=== PATIENT | male | born 1955 | race Caucasian/White ===

== ENCOUNTER 2018-11-04 14:33 | Inpatient (IN) ==
[2018-11-04 15:46] LABS: Basophils # (auto) 0.02 K/uL (0-0.2); Basophils % (auto) 0.3 %; Eosinophils # (auto) 0.03 K/uL (0-0.5); Eosinophils % (auto) 0.5 %; Hematocrit (blood only) 40.6 % (42-52); Immature Granulocytes # (auto) 0.01 K/uL (0.00-0.02); Immature Granulocytes % (auto) 0.2 %; Lymphocytes # (auto) 0.85 K/uL (1.2-3.4); Lymphocytes % (auto) 13.9 %; Mean Corpuscular Hgb Conc 34.5 g/dL (32-36); Mean Corpuscular Volume 89.2 fL (80-100); Mean Platelet Volume 9.5 fL (7.4-10.4); Monocytes # (auto) 0.43 K/uL (0.11-0.59); Neutrophils # (auto) 4.79 K/uL (1.4-6.5); Neutrophils % (auto) 78.1 %; Platelet Count 232 K/uL (130-400); RDW Coefficient of Variation 14.2 % (11.5-14.5); RDW Standard Deviation 46.2 fL (36.4-46.3); Red Blood Count 4.55 M/uL (4.7-6.1); White Blood Count 6.13 K/uL (4.8-10.8)
[2018-11-04 16:03] LABS: BUN Creatinine Ratio 14.9 (10-20); Calcium 9.2 mg/dl (8.5-10.1); Creatinine Clr Calc Pharmacy 68.9 ml/min; Est GFR (Non-African American) 91.4; Potassium 4.2 mmol/L (3.5-5.1)
[2018-11-04 16:06] LABS: Albumin Globulin Ratio 1.1 (0.9-2); Bilirubin,Total 0.5 mg/dl (0.2-1); Globulin 3.5 gm/dl (2.5-4.0); Total Protein 7.5 gm/dl (6.4-8.2)
[2018-11-04 16:19] LABS: Appearance Urine Clear (Clear); Bilirubin Urine Negative (Negative); Blood Urine Negative (Negative); Color Urine Yellow; Glucose Urine UA Negative (Negative); Ketones Urine Negative (Negative); Leukocyte Esterase Urine Negative (Negative); Nitrite Urine Negative (Negative); Protein Urine Negative (Negative); Specific Gravity Urine 1.023 (1.000-1.030); Urobilinogen Urine Negative (Negative)
--- NOTE | 2018-11-04 16:38 | XRay Report ---
XR chest 2V routine CLINICAL HISTORY: fever eval for pna dyspnea COMPARISON STUDY: 10/19/2018 FINDINGS: Chronic elevation left hemidiaphragm. Lungs are considered clear. No evidence for focal inf iltrate. Minimal atelectasis left base improved from the prior study. IMPRESSION: 1. Minimal atelectasis left base. Lungs otherwise are clear. The above report was generated using voice recognition software. It may contain grammatical, syntax or spelling errors. Electronically signed by: Memo Castillo M.D. 11/04/2018 4:36 PM
[2018-11-04 16:45] LABS: Lyme Ab IgG w/WB Rflx Negative (Negative); Lyme Ab IgM w/WB Rflx Negative (Negative)
[2018-11-04] MEDS ORDERED: PIPERACILL/TAZOBAC CONSULT ACTIVE PRN (16:56)
[2018-11-04] MEDS ORDERED: PIPERACILLIN/TAZOBACTAM 4.5 GM/120 ML BAG IV ONE (16:56)
[2018-11-04] MEDS ORDERED: DAPTOmycin 275 MG in SYRINGE 0 ML IV ONE (16:56)
--- NOTE | 2018-11-04 18:15 | History & Physical Report ---
Date of Service November 04, 2018 Assessment & Plan (1) Bilateral lower leg cellulitis: 62 y/o M Hx HLD, spinal stenosis with narcotic dependence, LE edema and recurrent cellulitis. Recently developed BL cellulitis. He was evaluated in the ER and DCd after receiving Dalvance. He initially improved on f/u, however, his cellulitis has worsened over the past few days and he now has fevers as well. 1) Cellulitis - BL LEs. The pt is placed on Vanc and Ceftriaxone. The affected area has been delineated. We will consult ID 2) HLD - cont statin 3) Spinal stenosis - can f/u with his pain specialist to continue his scheduled methadone. 4) Depression/anxiety - cont Buspar 5) LE edema - cont Lasix - elevate LEs - no edema presently Full code - Heparin prophylaxis Total time for this admit including review of labs, meds, recent imaging, records - discussion with pt and ER attending - 33 min History of Present Illness Primary Care Provider: Hernando Morelos MD 62 y/o M Hx HLD, spinal stenosis with narcotic dependence, LE edema and recurrent cellulitis. Recently developed BL cellulitis. He was evaluated in the ER and DCd after receiving Dalvance. He initially improved on f/u, however, his cellulitis has worsened over the past few days and he now has fevers as well. PMH: 1) Cervical and lumbar stenosis - states he is trying to schedule surgery and having some insurance issues 2) HLD 3) Depression/anxiety 4) Chronic LE edema with cellulitis - the pt states he has had cellulitis on/off for 3 years. 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 - does not drink alcohol Allergies Allergy/AdvReac Type Severity Reaction Status Date / Time erythromycin base Allergy Intermediate Rash Verified 11/04/18 15:53 Home Medications Home Medications Medication Instructions Recorded Confirmed Type alprazolam 0.5 mg PO TID 10/19/18 11/04/18 History atorvastatin 10 mg PO QAM 10/19/18 11/04/18 History buspirone 15 mg PO TID PRN 10/19/18 11/04/18 History furosemide 20 mg PO QAM 10/19/18 11/04/18 History methadone 10 mg PO QID 10/19/18 11/04/18 History methylphenidate HCl 10 mg PO .QAFTERNOON 10/19/18 11/04/18 History methylphenidate HCl 20 mg PO QAM 10/19/18 11/04/18 History oxycodone 10 mg PO TID 10/19/18 11/04/18 History pantoprazole 40 mg PO QAM 10/19/18 11/04/18 History Past Med/Surg History Medical History No significant past medical history Family History Other No significant family history Social History Preferred Language: Fijian Feels Safe at Home: Yes Smoking Status: Never smoker Review of Systems Review of Systems: Gen: + fevers and fatigue ENT: Denies congestion, throat pain, hearing loss Eyes: Denies acute visual changes CV: Denies CP, palpitations Pulmonary: Denies SOB, cough, wheezing GI: Denies N/V, diarrhea, constipation Neuro: Denies acute or unilateral weakness, acute gait impairment, headache or acute visual changes Musculoskeletal: Pain an inflammation of the LEs Endocrine: Denies polydipsia, polyuria Skin: Chronic LE cellulitis - worsening Physical Exam Physical Exam: General: AAO x 3, no distress ENT: No erythema or exudates, no thrush Eyes: PAL, EOMI Head and neck: Normocephalic, atraumatic, No JVD, neck is supple. Chest/heart: Nontender, S1,2, RRR, no murmurs, no gallops Lungs: CTAB, no wheezing or crackles Abdomen: Nontender, nondistended, BS+ Neuro: AAO x 3, speech is clear, no unilateral weakness or loss of sensation, coordination intact Musculoskeletal: No joint inflammation, muscle tenderness, FROM Skin: No acute rashes or ulcers Extremities: He has no edema at present - there is cellulitis to the mid shins BL Results & Data Vital Signs (Past 12 Hours) Vital Signs Temp Pulse Resp BP Pulse Ox 11/04/18 17:00 70 14 133/82 99 11/04/18 16:01 75 26 H 139/103 H 95 11/04/18 15:56 71 17 115/55 L 96 11/04/18 14:44 100.0 F H 88 18 154/91 H 99
[2018-11-04] MEDS ORDERED: ACETAMINOPHEN 325 MG TAB PO PRN (19:40)
[2018-11-04] MEDS ORDERED: VANCOMYCIN CONSULT ACTIVE PRN (19:40)
[2018-11-04] MEDS ORDERED: ALUMINUM/MAGNESIUM SUSP 30 ML UDC PO PRN (19:40)
[2018-11-04] MEDS ORDERED: BusPIRone 15 MG TAB PO PRN (19:40)
[2018-11-04] MEDS ORDERED: ONDANSETRON INJ 2 MG/ML 2 ML VIAL IV PRN (19:40)
[2018-11-04] MEDS ORDERED: VANCOMYCIN HCL 1,000 MG in SODIUM CHLORIDE 0.9% 250 ML IV SCH (19:40)
[2018-11-04] MEDS ORDERED: MAGNESIUM HYDROXIDE SUSP 30 ML UDC PO PRN (19:40)
[2018-11-04] MEDS ORDERED: D5W AND LACTATED RINGERS 1,000 ML IV SCH (20:00)
[2018-11-04] MEDS ORDERED: SENNA 8.6 MG TAB PO PRN (20:24)
--- NOTE | 2018-11-04 20:34 | Emergency Department Note ---
Entered by Rosalba Medina acting as a scribe for History of Present Illness General Chief complaint: Skin Problem Stated complaint: CELLULITIS FOLLOW UP Source: patient History of Present Illness Onset (ago): week(s) (several ) Location: lower extremity, left and right Pain Consistency: + other (worsening) Maximum Pain Intensity: 7 Quality: + other (infection) Exacerbated By: + movement Associated symptoms: + fever/chills, + nausea/vomiting (positive nausea, negative vomiting ) and + other (positive increased redness; positive increased leg pain ); no chest pain and no headaches The patient is a 62 year old male who presents to the Emergency Room with complaints of worsening bilateral leg infection that began several weeks prior to arrival. The patient states that he has had a fever and nausea during this time. His highest temperature was 101 at home. The patient states that he has had increased redness and pain. The patient states that his pain is exacerbated with walking. He denies chest pain and vomiting. The patient states that he had an ultrasound last week that showed that his arteries were normal. The patient states that he got a tick bite on his left shoulder blade recently. He states he removed the tick with a yakov. He denies headache. The patient states that he was treated for this infection less than one month ago with Dalvance, and states that several days later, upon reevaluation, his symptoms were improving. Home Medications Home Medications Medication Instructions Recorded Confirmed Type alprazolam 0.5 mg PO TID 10/19/18 11/04/18 History atorvastatin 10 mg PO QAM 10/19/18 11/04/18 History buspirone 15 mg PO TID PRN 10/19/18 11/04/18 History furosemide 20 mg PO QAM 10/19/18 11/04/18 History methadone 10 mg PO QID 10/19/18 11/04/18 History methylphenidate HCl 10 mg PO .QAFTERNOON 10/19/18 11/04/18 History methylphenidate HCl 20 mg PO QAM 10/19/18 11/04/18 History oxycodone 10 mg PO TID 10/19/18 11/04/18 History pantoprazole 40 mg PO QAM 10/19/18 11/04/18 History Allergies Allergy/AdvReac Type Severity Reaction Status Date / Time erythromycin base Allergy Intermediate Rash Verified 11/04/18 15:53 Past Med/Surg History Medical History No significant past medical history Family History Other No significant family history Social History Preferred Language: Slovenian Feels Safe at Home: Yes Smoking Status: Never smoker Review of Systems See HPI for pertinent positives & negatives. and A total of 10 systems reviewed and were otherwise negative Physical Exam Vital Signs Vital Signs - 24 hr 11/04/18 14:44 11/04/18 15:56 11/04/18 16:01 Temperature 37.8 C H Temperature Source Oral Sepsis Recent Fever Within 48 Hours No Sepsis New/Unexplained Change in Mental Status No Sepsis Action Taken by Nursing No Action Required Pulse Rate 88 71 75 Pulse Rate from SpO2 Sensor 71 74 Respiratory Rate 18 17 26 H Respiratory Effort / Characteristics Non-Labored Respiratory Depth Normal Respiratory Pattern Regular Blood Pressure 154/91 H 115/55 L 139/103 H Blood Pressure Mean 112 75 115 Blood Pressure Position Sitting Pulse Oximetry 99 96 95 Oxygen Delivery Method Room Air Room Air Room Air 11/04/18 17:00 11/04/18 17:30 11/04/18 18:00 Temperature Temperature Source Sepsis Recent Fever Within 48 Hours Sepsis New/Unexplained Change in Mental Status Sepsis Action Taken by Nursing Pulse Rate 70 60 54 L Pulse Rate from SpO2 Sensor 71 61 53 L Respiratory Rate 14 23 15 Respiratory Effort / Characteristics Respiratory Depth Respiratory Pattern Blood Pressure 133/82 111/75 106/67 Blood Pressure Mean 99 87 80 Blood Pressure Position Pulse Oximetry 99 97 96 Oxygen Delivery Method Room Air Room Air Room Air 11/04/18 18:30 11/04/18 19:00 11/04/18 19:14 Temperature Temperature Source Sepsis Recent Fever Within 48 Hours Sepsis New/Unexplained Change in Mental Status Sepsis Action Taken by Nursing Pulse Rate 55 L 56 L 56 L Pulse Rate from SpO2 Sensor 55 L 55 L Respiratory Rate 16 20 20 Respiratory Effort / Characteristics Respiratory Depth Respiratory Pattern Blood Pressure 102/75 123/75 123/75 Blood Pressure Mean 84 91 Blood Pressure Position Pulse Oximetry 97 98 98 Oxygen Delivery Method Room Air Room Air Room Air Constitutional: Vital signs reviewed. Eyes: Pupils are equal round reactive to light. Conjunctiva are noninjected. ENT: Pharynx is clear without erythema or exudate. Mucous membranes are moist. Neck supple without meningeal signs. Respiratory: Clear to auscultation bilaterally. Breath sounds are equal bilaterally. Cardiovascular: Regular rate and rhythm. No rubs or gallops. GI: Soft, nondistended and nontender. Bowel sounds are present. Musculoskeletal: Violaceous discoloration from the upper calf to the toes with tenderness to the dorsum of his feet and toes. Delayed capillary refill bilaterally. No increased warmth. The feet are cool to touch. Dorsalis pedis pulse is 2+ on the right and 1+ on the left. Posterior tibialis pulse is 1+ on the right and very faint on the left. Integumentary: No cyanosis. Excoriated lesion in the left upper back without rash or erythema migrans. No tick parts visible. Neurological: The patient is awake and alert. No focal deficits. Psychiatric: Normal affect. Course 1509: The patient was evaluated in room B3B, and a complete history and physical examination were performed. 1653: I updated the patient on the test results and the treatment plan. 1655: [facility] for further evaluation. Consultations Consultation #1: I [facility] patient for further evaluation. Time: 16:55 Administered Medications Discontinued Medications Piperacillin Sod/Tazobactam Sod (Zosyn) 4.5 gm in 120 mls @ 240 mls/hr IV NOW ONE Stop: 11/04/18 17:25 Last Infusion: 11/04/18 18:13 Dose: 0 mls/hr Documented by: [id number] Admin: 11/04/18 17:30 Dose: 240 mls/hr Documented by: [id number] Daptomycin 275 mg/ Syringe 5.5 mls @ 2.75 mls/min IV NOW ONE; Protocol Stop: 11/04/18 16:57 Last Admin: 11/04/18 17:30 Dose: 2.75 mls/min Documented by: [id number] Medical Decision Making Differential Diagnosis Differential diagnoses include claudication, arterial insufficiency, cellulitis, pneumonia, UTI, Lyme disease, and others were considered. Medical Records Attestation: I reviewed the patient's medical records. The patient was treated on 10/20/2018 with dalvance for cellulitis of both legs. The patient returned to the ED on 10/23/2018 and was improving. The arterial doppler of the lower extremities show that ABIs were normal bilaterally. Th//ere is no evidence of significant lower extremity arterial occlusive disease. A venous doppler on 10/14/2018 was negative for bilateral DVTs. Home Medications Current Medication List: was personally reviewed by me Laboratory Data Attestation: I reviewed the patient's lab results. Result diagrams: 11/04/18 15:26 11/04/18 15:26 Lab Results 11/04/18 11/04/18 11/04/18 Range/Units 15:26 15:26 15:26 WBC 6.13 (4.8-10.8) K/uL RBC 4.55 L (4.7-6.1) M/uL Hgb 14.0 (14.0-18.0) g/dL Hct 40.6 L (42-52) % MCV 89.2 (80-100) fL MCH 30.8 (25-34) pg MCHC 34.5 (32-36) g/dL RDW Std Deviation 46.2 (36.4-46.3) fL RDW Coeff of Stephen 14.2 (11.5-14.5) % Plt Count 232 (130-400) K/uL MPV 9.5 (7.4-10.4) fL Immature Gran % (Auto) 0.2 % Neut % (Auto) 78.1 % Lymph % (Auto) 13.9 % [place] % (Auto) 7.0 % Eos % (Auto) 0.5 % Baso % (Auto) 0.3 % Immature Gran # (Auto) 0.01 (0.00-0.02) K/uL Neut # (Auto) 4.79 (1.4-6.5) K/uL Lymph # (Auto) 0.85 L (1.2-3.4) K/uL [place] # (Auto) 0.43 (0.11-0.59) K/uL Eos # (Auto) 0.03 (0-0.5) K/uL Baso # (Auto) 0.02 (0-0.2) K/uL Sodium 140 (136-145) mmol/L Potassium 4.2 (3.5-5.1) mmol/L Chloride 107 (98-107) mmol/L Carbon Dioxide 27 (21-32) mmol/L Anion Gap 6.0 (3-11) BUN 13 (7-18) mg/dl Creatinine 0.88 (0.6-1.4) mg/dl Est Cr Clr Drug Dosing 68.9 ml/min Est GFR ( Amer) 106.0 Est GFR (Non-Af Amer) 91.4 BUN/Creatinine Ratio 14.9 (10-20) Glucose 95 (70-99) mg/dl POC Lactic Acid Mumtaz (0.90-1.70) mmol/L Calcium 9.2 (8.5-10.1) mg/dl Total Bilirubin 0.5 (0.2-1) mg/dl AST 28 (15-37) U/L ALT 25 (12-78) U/L Alkaline Phosphatase 87 (45-117) U/L Total Protein 7.5 (6.4-8.2) gm/dl Albumin 4.0 (3.4-5.0) gm/dl Globulin 3.5 (2.5-4.0) gm/dl Albumin/Globulin Ratio 1.1 (0.9-2) Urine Color Urine Appearance (Clear) Urine pH (4.5-7.5) Ur Specific [place] (1.000-1.030) Urine Protein (Negative) Urine Glucose (UA) (Negative) Urine Ketones (Negative) Urine Blood (Negative) Urine Nitrite (Negative) Urine Bilirubin (Negative) Urine Urobilinogen (Negative) Ur Leukocyte Esterase (Negative) Lyme Disease IgG Ab Negative (Negative) Lyme Disease IgM Ab Negative (Negative) Influenza Type A Ag (Neg) Influenza Type B Ag (Neg) 11/04/18 11/04/18 11/04/18 Range/Units 15:40 15:51 15:54 WBC (4.8-10.8) K/uL RBC (4.7-6.1) M/uL Hgb (14.0-18.0) g/dL Hct (42-52) % MCV (80-100) fL MCH (25-34) pg MCHC (32-36) g/dL RDW Std Deviation (36.4-46.3) fL RDW Coeff of Stephen (11.5-14.5) % Plt Count (130-400) K/uL MPV (7.4-10.4) fL Immature Gran % (Auto) % Neut % (Auto) % Lymph % (Auto) % [place] % (Auto) % Eos % (Auto) % Baso % (Auto) % Immature Gran # (Auto) (0.00-0.02) K/uL Neut # (Auto) (1.4-6.5) K/uL Lymph # (Auto) (1.2-3.4) K/uL [place] # (Auto) (0.11-0.59) K/uL Eos # (Auto) (0-0.5) K/uL Baso # (Auto) (0-0.2) K/uL Sodium (136-145) mmol/L Potassium (3.5-5.1) mmol/L Chloride (98-107) mmol/L Carbon Dioxide (21-32) mmol/L Anion Gap (3-11) BUN (7-18) mg/dl Creatinine (0.6-1.4) mg/dl Est Cr Clr Drug Dosing ml/min Est GFR ( Amer) Est GFR (Non-Af Amer) BUN/Creatinine Ratio (10-20) Glucose (70-99) mg/dl POC Lactic Acid Mumtaz 1.25 (0.90-1.70) mmol/L Calcium (8.5-10.1) mg/dl Total Bilirubin (0.2-1) mg/dl AST (15-37) U/L ALT (12-78) U/L Alkaline Phosphatase (45-117) U/L Total Protein (6.4-8.2) gm/dl Albumin (3.4-5.0) gm/dl Globulin (2.5-4.0) gm/dl Albumin/Globulin Ratio (0.9-2) Urine Color Yellow Urine Appearance Clear (Clear) Urine pH 5.0 (4.5-7.5) Ur Specific [place] 1.023 (1.000-1.030) Urine Protein Negative (Negative) Urine Glucose (UA) Negative (Negative) Urine Ketones Negative (Negative) Urine Blood Negative (Negative) Urine Nitrite Negative (Negative) Urine Bilirubin Negative (Negative) Urine Urobilinogen Negative (Negative) Ur Leukocyte Esterase Negative (Negative) Lyme Disease IgG Ab (Negative) Lyme Disease IgM Ab (Negative) Influenza Type A Ag Neg for Influ A (Neg) Influenza Type B Ag Neg for Influ B (Neg) Imaging Data Radiologist's Impression: Radiology results as stated below per my review and the radiologist's interpretation: XR chest 2V routine CLINICAL HISTORY: fever eval for pna dyspnea COMPARISON STUDY: 10/19/2018 FINDINGS: Chronic elevation left hemidiaphragm. Lungs are considered clear. No evidence for focal infiltrate. Minimal atelectasis left base improved from the p rior study. IMPRESSION: 1. Minimal atelectasis left base. Lungs otherwise are clear. The above report was generated using voice recognition software. It may contain grammatical, syntax or spelling errors. Electronically signed by: Memo Castillo M.D. 11/04/2018 4:36 PM Blood Pressure Blood Pressure Findings: Elevated blood pressure Blood Pressure Disposition: further management by hospitalist CHEL Galan I did evaluate the patient as noted above. The patient is presenting with worsening pain to his legs. His legs appear to be somewhat cool in temperature and I was concerned about an arterial obstruction or stenosis. I did obtain records from the [facility] physician group and the patient had an arterial Doppler which showed no signs of stenosis. He has had a fever and is almost febrile here with a temp of 37.8. IV access was established. The patient was placed on a continuous athletic monitor. I did order and personally reviewed the images of the patient's chest x-ray as described above. There is no evidence of pneumonia. I did order a urine analysis. There is no evidence of infection. I did order and review the patient's blood work as noted in the electronic medical record. His white count is not elevated. Lactic acid is not significantly elevated. Lyme testing is negative. A rapid flu test was negative. I did discuss the test results with the patient. Given his continued lower extremity erythema and worsening pain despite his treatment with Dalvance I did feel he should be hospitalized for IV antibiotics. I did treat him with Zosyn and daptomycin IV after discussion with the ED pharmacist. I did discuss the case with the hospitalist and case management social worker. Impression & Plan Bilateral lower leg cellulitis, Failure of outpatient treatment Discharge Plan Visit Data *Final* Discharge Date/Time: 11/04/18 19:14 Chief Complaint: Skin Problem Stated Complaint: CELLULITIS FOLLOW UP ED Provider: Cezar Oakes Discharge Problem: Bilateral lower leg cellulitis, Failure of outpatient treatment Patient Disposition: Admitted As Inpatient Discharge Instructions Interventions: ED Discharge Assessment Last Done: 11/04/18 19:14 The aydeibe's documentation has been prepared under my direction and personally reviewed by me in its entirety. I confirm that the note above accurately reflects all work, treatment, procedures, and medical decision making performed by me.
[2018-11-04] MEDS: ALPRAZolam 0.5 MG TABLET PO SCH (20:44)
[2018-11-04] MEDS: OXYCODONE HCL IR 5 MG TAB (IMMEDIATE RELEASE) PO SCH (20:44)
[2018-11-04] MEDS: METHADONE HCL 10 MG TAB PO SCH (20:44)
[2018-11-04] MEDS: POLYETHYLENE (MIRALAX) 17 GM PACK PO PRN (20:44)
[2018-11-04] MEDS: cefTRIAXone SODIUM 1,000 MG in DEXTROSE 5% 50 ML IV SCH (20:45)
[2018-11-04 21:55] LABS: INR 1.1 (0.9-1.1); Partial Thromboplastin Time 27.1 Seconds (21.0-31.0); Prothrombin Time 10.9 Seconds (9.0-12.0)
[2018-11-05] MEDS ORDERED: METHYLPHENIDATE HCL 10 MG TABLET ONE (07:59)
[2018-11-05] MEDS: PANTOprazole 40 MG TAB PO SCH (08:02)
[2018-11-05] MEDS: METHADONE HCL 10 MG TAB PO SCH ×4 (08:02→20:53)
[2018-11-05] MEDS: FUROSEMIDE 20 MG TAB PO SCH (08:02)
[2018-11-05] MEDS: OXYCODONE HCL IR 5 MG TAB (IMMEDIATE RELEASE) PO SCH ×3 (08:03→20:54)
[2018-11-05] MEDS: ALPRAZolam 0.5 MG TABLET PO SCH ×3 (08:03→21:27)
[2018-11-05] MEDS: METHYLPHENIDATE HCL 10 MG TABLET PO SCH ×2 (08:03→14:18)
[2018-11-05 08:51] LABS: Creatinine Clr Calc Pharmacy 63.7 ml/min; Est GFR (African American) 100.9; Est GFR (Non-African American) 87.1
[2018-11-05] MEDS ORDERED: ATORVASTATIN 10 MG TAB PO SCH (09:00)
--- NOTE | 2018-11-05 09:17 | Infectious Disease Consult ---
Date of Consultation November 05, 2018 Assessment & Plan (1) Bilateral lower leg cellulitis: no evidence of cellulitis on exam. wbc nml, lactated normal. blood cultures pending. Not a failure of Dalvance therapy. can continue abx pending blood culture results, if negative, would follow off of abx. suspect vascular etiology for pain, especially with symptoms worsening over 3 years, discolored toes and diminished sensation. doubt infectious in nature, will check procalcitonin as well. History of Present Illness Attending Physician: Marvin Hayes MD, PhD, [facility] pt admitted from pcp due to worsening b/l le pain. States he has had worsening pain in his legs for 3 years, no previous workup. also states this winter he was living in a cabin with only heat soruce as a wood burner. states throughout the winter he had leg swelling and could not wear shoes, was cutting wood in his socks and had increased leg and foot pain, states his big toenail fell off and now he notices that his remaining toenails are black and discolored. Has tingling pain in feet and legs, has pain with ambulation. was seen in ER on 10/19 - states his legs were swollen and red, given Dalvance and d/c home, saw pcp then given bactrim, followed back in ER on 10/23 - improvement noted, d/c home. States he had significant improvement after Dalvance. was also given Lasix with resolution of edema. Was off of abx but then noted pain in legs, no recurrent edema but discolored, also concerned about discolored toes, saw pcp and was sent to ER for recurrent cellulitis, line drawn on legs in ER and pt was started on IV dapto and rocephin, tolerating well. afebrile. wbc nml. denies fevers at home. States 80 lb wt loss in last year, not eating due to poor fitting dentures and pain with chewing. lives alone. UA negative, cxr negative, flu swab negat andrew, lyme screen negative. had doppler on 10/14 - negative for dvt. On my exam, he is comfortable, eating breakfast, no f/c. min pain in legs with ambulating this am, but improved as his activity increased. no swelling, no abd pain, no n/v/d, no cp, sob, cough, leger. no open wounds, no trauma to legs. states much improved this am. Allergies Allergy/AdvReac Type Severity Reaction Status Date / Time erythromycin base Allergy Intermediate Rash Verified 11/04/18 15:53 Home Medications Home Medications Medication Instructions Recorded Confirmed Type alprazolam 0.5 mg PO TID 10/19/18 11/04/18 History atorvastatin 10 mg PO QAM 10/19/18 11/04/18 History buspirone 15 mg PO TID PRN 10/19/18 11/04/18 History furosemide 20 mg PO QAM 10/19/18 11/04/18 History methadone 10 mg PO QID 10/19/18 11/04/18 History methylphenidate HCl 10 mg PO .QAFTERNOON 10/19/18 11/04/18 History methylphenidate HCl 20 mg PO QAM 10/19/18 11/04/18 History oxycodone 10 mg PO TID 10/19/18 11/04/18 History pantoprazole 40 mg PO QAM 10/19/18 11/04/18 History Patient History Medical History No significant past medical history Family History Other No significant family history Social History Preferred Language: Syriac Communication Ability: Effective Market Research Intern Required: No Beliefs That Will Affect Care: None Current Living Situation: Alone Feels Safe at Home: Yes Safety Concerns: Feels Safe At This Time Smoking Status: Former smoker Do You Dip or Chew Tobacco: No Second Hand Exposure: No Tobacco Cessation Education Requested by Patient: No Hx Alcohol Use: No Hx Substance Use: No Review of Systems Review of Systems: All systems reviewed & are unremarkable except as noted in HPI & below Physical Exam Constitutional: WD/WN, vitals as above Eyes: PERRL, conjunctivae normal, anicteric sclerae ENMT: external ear and nose normal, oropharynx normal Neck: trachea midline, no thyromegaly Respiratory: normal respiratory effort, lungs clear to auscultation Cardiovascular: RRR, no murmur, no edema Gastrointestinal (Abdomen): normal bowel sounds, soft, nontender, no hepatosplenomegaly Musculoskeletal: no cyanosis or clubbing, extremities motor strength 5/5 Skin: no rashes, warm and dry b/l legs with no edema, no discoration, no erythema noted, no warmth, non tender. discolored toes noted. no feet swelling, sensation in toes diminished. Psychiatric: A+Ox3, euthymic affect Results & Data Vital Signs (Past 12 Hours) Vital Signs Temp Pulse Resp BP Pulse Ox 11/05/18 07:23 36.5 C 48 L 20 96/58 L 93 11/04/18 22:31 37.2 C 54 L 18 97/64 L 95
[2018-11-05] MEDS ORDERED: POLYETHYLENE (MIRALAX) 17 GM PACK PO PRN (09:47)
[2018-11-05 10:30] LABS: Folate (Folic Acid) 23.02 ng/ml (>5.38)
[2018-11-05] MEDS: DOCUSATE SODIUM 100 MG CAP PO SCH ×2 (11:25→20:53)
[2018-11-05] MEDS: ENOXAPARIN INJ 40 MG/0.4 ML SYR SQ SCH (11:26)
[2018-11-05] MEDS: DAPTOmycin 250 MG in SYRINGE 0 ML IV SCH (17:24)
--- NOTE | 2018-11-05 19:04 | Hospitalist Progress Note ---
Date of Service November 05, 2018 Assessment & Plan (1) Bilateral lower leg cellulitis: 62 y/o M Hx HLD, spinal stenosis with narcotic dependence, LE edema and recurrent cellulitis. per report: nathaly developed BL cellulitis. was evaluated in the ER and DCd after receiving Dalvance. initially improved on f/u, however, his cellulitis has worsened over the past few days and he now has fevers as well. Cellulitis, BL LEs, significant improving, continue on current antibiotic of Vanc and Ceftriaxone. Infectious disease on the case, input appreciated, follow-up culture results, possible not cellulitis, cellulitis significantly improved, Bilateral lower toes numbness, Which it has been years, differential diagnosis include a neuropathy, or peripheral artery disease, or is related to spinal stenosis, I checked vitamin B12 and folate as it is normal range, possible in the future nerve conduction studies, patient has bilateral lower extremity venous Doppler ultrasound study was done there was no DVT, I will order bilateral lower extremity artery ultrasound to rule of vascular disease, HLD - cont statin Spinal stenosis - can f/u with his pain specialist to continue his scheduled methadone. Depression/anxiety - cont Buspar LE edema - cont Lasix - elevate LEs - no edema presently Full code - Heparin prophylaxis Subjective Bilateral lower extremity significant improving in the erythema and red, no obvious signs of erythema and red within the marker line, denies fever and chills denies pain, however report toes tingling anomalies, which is not new, for which has been at least 2 or 3 years Review of Systems Review of Systems: All systems reviewed & are unremarkable except as noted in HPI & below Physical Exam 2 Physical Exam: General: AAO x 3, no distress ENT: Pupils equal round response to light EOMs normal nose was normal no erythema or exudates, no thrush Head and neck: Normocephalic, atraumatic, No JVD, neck is supple. Chest/heart: Nontender, S1,2, RRR, no murmurs, no gallops Lungs: CTAB, no wheezing or crackles Abdomen: Nontender, nondistended, BS+ Neuro: AAO x 3, speech is clear, no unilateral weakness or loss of sensation, coordination intact Musculoskeletal: No joint inflammation, muscle tenderness, FROM Skin: No acute rashes or ulcers, no edema or erythema within the marker 9, Extremities: I do not see any obvious cellulitis to the mid shins BL Results & Data Vital Signs (Past 12 Hours) Vital Signs Temp Pulse Resp BP BP Pulse Ox 11/05/18 15:44 37.1 C 62 20 99/65 L 96 11/05/18 07:23 36.5 C 48 L 20 96/58 L 93 Laboratory Results - last 24 hr 11/04/18 11/05/18 11/05/18 21:27 08:13 09:47 PT 10.9 INR 1.1 APTT 27.1 PTT Ratio 1.0 Creatinine 0.93 Est Cr Clr Drug Dosing 63.7 Est GFR ( Amer) 100.9 Est GFR (Non-Af Amer) 87.1 Total Creatine Kinase 231 Vitamin B12 Folate Procalcitonin 0.06 11/05/18 09:47 PT INR APTT PTT Ratio Creatinine Est Cr Clr Drug Dosing Est GFR ( Amer) Est GFR (Non-Af Amer) Total Creatine Kinase Vitamin B12 621 Folate 23.02 Procalcitonin
[2018-11-05] MEDS: cefTRIAXone SODIUM 1,000 MG in DEXTROSE 5% 50 ML IV SCH (20:55)
[2018-11-05] MEDS: POLYETHYLENE (MIRALAX) 17 GM PACK PO PRN (21:34)
[2018-11-06] MEDS: PANTOprazole 40 MG TAB PO SCH (08:12)
[2018-11-06] MEDS: ENOXAPARIN INJ 40 MG/0.4 ML SYR SQ SCH (08:12)
[2018-11-06] MEDS: FUROSEMIDE 20 MG TAB PO SCH (08:12)
[2018-11-06] MEDS: METHYLPHENIDATE HCL 10 MG TABLET PO SCH ×2 (08:19→13:56)
[2018-11-06] MEDS: METHADONE HCL 10 MG TAB PO SCH ×4 (08:20→20:48)
[2018-11-06] MEDS: OXYCODONE HCL IR 5 MG TAB (IMMEDIATE RELEASE) PO SCH ×3 (08:20→20:41)
[2018-11-06] MEDS: ALPRAZolam 0.5 MG TABLET PO SCH ×3 (08:20→20:41)
[2018-11-06] MEDS: DOCUSATE SODIUM 100 MG CAP PO SCH ×2 (13:51→20:41)
[2018-11-06] MEDS: DAPTOmycin 250 MG in SYRINGE 0 ML IV SCH (16:44)
--- NOTE | 2018-11-06 17:49 | Hospitalist Progress Note ---
Date of Service November 06, 2018 Assessment & Plan (1) Bilateral lower leg cellulitis: 62 y/o M Hx HLD, spinal stenosis with narcotic dependence, LE edema and recurrent cellulitis. per report: recently developed BL cellulitis. was evaluated in the ER and DCd after receiving Dalvance. initially improved on f/u, however, per report: his cellulitis has worsened over the past few days and he has fevers as well prior to this admission Cellulitis, BL LEs, significant improving, or actually I did not see any red/erythema/swellen yesterday and today, Blood culture has been negative more than 48 hours, I will discontinue current antibiotic of Vanc and Ceftriaxone. Infectious disease on the case, input appreciated, possible not cellulitis After discontinue antibiotics today if there is no recurrent or any unusual sign in the bilateral lower extremity patient is to not have any cellulitis, and will not need antibiotic upon discharge Bilateral lower toes numbness, Which it has been years, differential diagnosis include a neuropathy, or peripheral artery disease, or is related to spinal stenosis, I checked vitamin B12 and folate as it is normal range, possible in the future nerve conduction studies, patient has bilateral lower extremity venous Doppler ultrasound study , and also Artery studies, No peripheral Artery disease, and no DVT jacqui posterior thigh sore, cpk WNL HLD - cont statin Spinal stenosis - can f/u with his pain specialist to continue his scheduled methadone. Depression/anxiety - cont Buspar LE edema - cont Lasix - elevate LEs - no edema presently Increase activities, Out of bed and walk, and will likely can discharge home tomorrow Full code - Heparin prophylaxis Subjective Complaining of bilateral posterior thigh stiffness and sore, never, have this problem before, Denies fever chills erythema, or history of any injury or fall Bilateral toe Numbness has been years, is not new, Anterior dressing has no any erythema or swelling, Review of Systems Review of Systems: All systems reviewed & are unremarkable except as noted in HPI & below Physical Exam Physical Exam: General: AAO x 3, no distress ENT: Pupils equal round response to light EOMs normal nose was normal no erythema or exudates, no thrush Head and neck: Normocephalic, atraumatic, No JVD, neck is supple. Chest/heart: Nontender, S1,2, RRR, no murmurs, no gallops Lungs: CTAB, no wheezing or crackles Abdomen: Nontender, nondistended, BS+ Neuro: AAO x 3, speech is clear, no unilateral weakness or loss of sensation, coordination intact Musculoskeletal: No joint inflammation, muscle tenderness, FROM Skin: No acute rashes or ulcers, no edema or erythema within the marker 9, Extremities: I do not see any obvious cellulitis to the mid shins BL, Posterior thigh bilaterally there was no any erythema, or swelling, no obvious palpatio n,Lower extremity has no cyanosis clubbing or injury Results & Data Vital Signs (Past 12 Hours) Vital Signs Temp Pulse Resp BP BP Pulse Ox 11/06/18 15:10 36.6 C 66 20 105/68 97 11/06/18 07:00 37 C 87 18 115/76 91 Laboratory Results - last 24 hr 11/06/18 10:47 Total Creatine Kinase 132 Microbiology 11/04/18 15:35 Blood Blood Culture - Preliminary No growth to date. 11/04/18 15:26 Blood Blood Culture - Preliminary No growth to date.
[2018-11-06] MEDS: POLYETHYLENE (MIRALAX) 17 GM PACK PO PRN (20:50)
[2018-11-06] MEDS ORDERED: DOXYCYCLINE HYCLATE 100 MG CAP PO STA (21:54)
--- NOTE | 2018-11-06 22:15 | Progress Note ---
Date of Service November 06, 2018 Received a page from the patient's nurse stating the patient was requesting doxycycline for a tick bite. Spoke with the patient at bedside. He says that this past morning (09May) he noticed an engorged tick on his left posterior shoulder blade. He removed it himself. He is noticed a small red bump in the area but no further rash since then. Denies a known history of previous Lyme disease or tick bites. He says he happened to be reading online this evening that he may benefit from a course of doxycycline. He says this tick bite was mentioned in the ED but not to his infectious disease provider. Brief review of the medical record notes that he was admitted for possible bilateral lower extremity cellulitis. Exam: There is a small perhaps 1 cm papular lesion on the left posterior shoulder blade consistent with a prior tick bite. There is no surrounding erythema or other rash. This little papular lesion is not draining but it is a little tender to palpation. Plan: We will cover with doxycycline 200 mg p.o. x1 since he is within the 72- hour window. Mikhail Barney, PGY2 Overnight call Results & Data Vital Signs (Past 12 Hours) Vital Signs Temp Pulse Resp BP Pulse Ox 11/06/18 15:10 36.6 C 66 20 105/68 97
[2018-11-07 05:44] LABS: Basophils # (auto) 0.02 K/uL (0-0.2); Basophils % (auto) 0.3 %; Eosinophils % (auto) 1.6 %; Hematocrit (blood only) 38.5 % (42-52); Hemoglobin 13.7 g/dL (14.0-18.0); Immature Granulocytes # (auto) 0.01 K/uL (0.00-0.02); Immature Granulocytes % (auto) 0.2 %; Lymphocytes # (auto) 2.13 K/uL (1.2-3.4); Lymphocytes % (auto) 33.4 %; Mean Corpuscular Hgb Conc 35.6 g/dL (32-36); Mean Corpuscular Volume 87.7 fL (80-100); Mean Platelet Volume 9.5 fL (7.4-10.4); Monocytes # (auto) 0.54 K/uL (0.11-0.59); Monocytes % (auto) 8.5 %; Neutrophils # (auto) 3.58 K/uL (1.4-6.5); Platelet Count 211 K/uL (130-400); RDW Standard Deviation 45.4 fL (36.4-46.3); Red Blood Count 4.39 M/uL (4.7-6.1); White Blood Count 6.38 K/uL (4.8-10.8)
[2018-11-07 06:02] LABS: BUN Creatinine Ratio 17.3 (10-20); Calcium 8.6 mg/dl (8.5-10.1); Creatinine Clr Calc Pharmacy 74.1 ml/min; Est GFR (African American) 110.2; Est GFR (Non-African American) 95.1; Magnesium 2.4 mg/dl (1.8-2.4); Potassium 3.6 mmol/L (3.5-5.1)
[2018-11-07 06:03] LABS: Phosphorus 4.8 mg/dl (2.5-4.9)
[2018-11-07] MEDS: ENOXAPARIN INJ 40 MG/0.4 ML SYR SQ SCH (08:06)
[2018-11-07] MEDS: DOCUSATE SODIUM 100 MG CAP PO SCH ×2 (08:07→20:27)
[2018-11-07] MEDS: PANTOprazole 40 MG TAB PO SCH (08:07)
[2018-11-07] MEDS: FUROSEMIDE 20 MG TAB PO SCH (08:07)
[2018-11-07] MEDS: METHYLPHENIDATE HCL 10 MG TABLET PO SCH ×2 (08:15→13:58)
[2018-11-07] MEDS: ALPRAZolam 0.5 MG TABLET PO SCH ×3 (08:15→20:27)
[2018-11-07] MEDS: METHADONE HCL 10 MG TAB PO SCH ×4 (08:15→20:28)
[2018-11-07] MEDS: OXYCODONE HCL IR 5 MG TAB (IMMEDIATE RELEASE) PO SCH ×3 (08:15→20:28)
[2018-11-07] MEDS: POLYETHYLENE (MIRALAX) 17 GM PACK PO PRN (08:17)
--- NOTE | 2018-11-07 17:04 | Hospitalist Progress Note ---
Date of Service November 07, 2018 Assessment & Plan (1) Bilateral lower leg cellulitis: Has had 3 weeks of on/off lower extremity redness, pain, and possible cellulitis. Was on ceftriaxone on 11/04 & 11/05 and daptomycin on 11/05 & 11/06. - Seen by ID on 11/07 who felt this was not infectious in nature. - Abx stopped on 11/06 for thought that this was chronic venous insufficiency instead of actual cellulitis - Will closely follow leg status (2) Lower extremity edema: No known cause of his edema. - Continue home Lasix 20mg PO daily (3) Neuropathy: Bilateral lower toe numbness which has been present for years. Ddx includes neuropathy, peripheral artery disease, or related to spinal stenosis. B12 & folate were both in normal range. ABIs on 11/01/2018 were normal with normal waveforms. - Start gabapentin - Consider neurology consult if pain continues (4) Spinal stenosis: No acute inpatient needs. - Can f/u with his pain specialist to continue his scheduled methadone (5) Depression: Has a very anxious and somewhat downcast affect. - Cont Buspar (6) DVT prophylaxis: Lovenox 40mg subcut daily Subjective Feels his legs are getting worse. More pain, more tingling, and feels there is more redness. Reports no fevers/chills, chest pain, shortness of breath, abdominal pain, nausea, or vomiting. Review of Systems Review of Systems: All systems reviewed & are unremarkable except as noted in HPI & below Physical Exam Constitutional: WD/WN, vitals as above Eyes: PERRL, conjunctivae normal, anicteric sclerae ENMT: external ear and nose normal, oropharynx normal Neck: trachea midline, no thyromegaly Respiratory: normal respiratory effort, lungs clear to auscultation Cardiovascular: RRR, no murmur, no edema Gastrointestinal (Abdomen): normal bowel sounds, soft, nontender, no hepatosplenomegaly Musculoskeletal: no cyanosis or clubbing, extremities motor strength 5/5 Skin: no rashes, warm and dry Psychiatric: A+Ox3, euthymic affect Results & Data Vital Signs (Past 12 Hours) Vital Signs Temp Pulse Resp BP Pulse Ox 11/07/18 16:02 36.9 C 71 20 109/72 99 11/07/18 11:57 36.9 C 60 16 102/67 96
[2018-11-07] MEDS: GABAPENTIN 100 MG CAP PO SCH (20:30)
--- NOTE | 2018-11-07 22:01 | Ultrasound Report ---
US venous reflux LE BI CLINICAL HISTORY: Leg swelling COMPARISON STUDY: 10/14/2018 FINDINGS: Real-time and color flow Doppler venous study was performed the deep veins of both lower ex tremities. The veins are fully compressible from each groin to the popliteal veins. There is normal a ugmentation. There is normal color-flow the proximal trifurcation veins of each calf. On the right, there was reflux into the common femoral superficial femoral veins. On the left there w as reflux into the common femoral, superficial femoral, and proximal portion of the greater saphenous vein. IMPRESSION: 1. No evidence of lower extremity DVT 2. Venous reflux on the right into the common femoral, and superficial femoral veins. 3. Venous reflex on the left into the common femoral, superficial femoral, and proximal greater saphe nous vein Electronically signed by: Roly Cabrera M.D. 11/07/2018 9:58 PM
[2018-11-08] MEDS: GABAPENTIN 100 MG CAP PO SCH ×3 (07:46→20:42)
[2018-11-08] MEDS: PANTOprazole 40 MG TAB PO SCH (07:46)
[2018-11-08] MEDS: ENOXAPARIN INJ 40 MG/0.4 ML SYR SQ SCH (07:47)
[2018-11-08] MEDS: DOCUSATE SODIUM 100 MG CAP PO SCH ×2 (07:47→20:41)
[2018-11-08] MEDS: FUROSEMIDE 20 MG TAB PO SCH (07:47)
[2018-11-08] MEDS: METHADONE HCL 10 MG TAB PO SCH ×4 (07:57→20:41)
[2018-11-08] MEDS: OXYCODONE HCL IR 5 MG TAB (IMMEDIATE RELEASE) PO SCH ×3 (07:57→20:41)
[2018-11-08] MEDS: ALPRAZolam 0.5 MG TABLET PO SCH ×3 (07:57→20:42)
[2018-11-08] MEDS: METHYLPHENIDATE HCL 10 MG TABLET PO SCH ×2 (07:57→12:58)
--- NOTE | 2018-11-08 10:42 | Infectious Disease Progress Nt ---
Date of Service November 08, 2018 Assessment & Plan (1) Bilateral lower leg cellulitis: no evidence of cellulitis on exam. wbc nml, lactated normal. blood cultures pending. Not a failure of Dalvance therapy. procalcitonin normal, doubt infectious etiology for leg pain. continue to follow off of abx, spoke wtih primary. No new ID recs at this time. Subjective pt remains stable off of abx. afebrile. wbc normal. blood culture remain negative. Results & Data Vital Signs (Past 12 Hours) Vital Signs Temp Pulse Resp BP BP Pulse Ox 11/08/18 07:27 36.6 C 54 L 20 104/68 95 11/07/18 23:08 36.8 C 55 L 18 108/74 95 Laboratory Results Microbiology 11/04/18 15:35 Blood Blood Culture - Preliminary No growth to date. 11/04/18 15:26 Blood Blood Culture - Preliminary No growth to date.
--- NOTE | 2018-11-08 14:50 | Hospitalist Progress Note ---
Date of Service November 08, 2018 Assessment & Plan (1) Bilateral lower leg cellulitis: Has had 3 weeks of on/off lower extremity redness, pain. Initially thought to be cellulitis and was on ceftriaxone on 11/04 & 11/05 and daptomycin on 11/05 & 11/06. - Seen by ID on 11/07 who felt this was not infectious in nature. - Abx stopped on 11/06 for thought that this was chronic venous insufficiency instead of actual cellulitis - Venous reflux u/s done on 11/07 which showed bilateral venous reflux. Has now been off abx since 11/06 (except for the Dalvance he received previously). I do not think he has any current cellulitis. This appears to be venous reflux with waxing/waning symptoms depending on how long he has had his feet down. When legs are elevated, he has minimal pinkish hue, no warmth, and definitely no systemic signs of infection. - Will get gradient stockings. Discussed leg exercises to improve venous reflux. Started low-dose gabapentin for the neuropathic pain from the swelling. (2) Lower extremity edema: Has bilateral venous reflux, diagnosed on ultrasound on 11/07. - Stopped home Lasix 20mg PO daily on 11/07 in favor of other venous reflux modalities. (3) Neuropathy: Bilateral lower toe numbness which has been present for years. Ddx includes venous reflux, neuropathy, or related to spinal stenosis. B12 & folate were both in normal range. ABIs on 11/01/2018 were normal with normal waveforms. - Started gabapentin on 11/07 with improvement (4) Spinal stenosis: No acute inpatient needs. - Can f/u with his pain specialist to continue his scheduled methadone (5) Depression: Has a very anxious and somewhat downcast affect. - Cont Buspar (6) DVT prophylaxis: Lovenox 40mg subcut daily Subjective Legs are feeling better than yesterday with significant elevation. Not hot, not warm, not swollen or even very red. Reports no fevers/chills, chest pain, shortness of breath, abdominal pain, nausea, or vomiting. Review of Systems Review of Systems: All systems reviewed & are unremarkable except as noted in HPI & below Physical Exam Constitutional: WD/WN, vitals as above Eyes: PERRL, conjunctivae normal, anicteric sclerae ENMT: external ear and nose normal, oropharynx normal Neck: trachea midline, no thyromegaly Respiratory: normal respiratory effort, lungs clear to auscultation Cardiovascular: RRR, no murmur, no edema Gastrointestinal (Abdomen): normal bowel sounds, soft, nontender, no hepatosplenomegaly Musculoskeletal: no cyanosis or clubbing, extremities motor strength 5/5 Skin: no rashes, warm and dry Psychiatric: A+Ox3, euthymic affect Results & Data Vital Signs (Past 12 Hours) Vital Signs Temp Pulse Resp BP Pulse Ox 11/08/18 07:27 36.6 C 54 L 20 104/68 95
[2018-11-09] MEDS: METHADONE HCL 10 MG TAB PO SCH ×2 (07:19→12:34)
[2018-11-09] MEDS: DOCUSATE SODIUM 100 MG CAP PO SCH (07:20)
[2018-11-09] MEDS: METHYLPHENIDATE HCL 10 MG TABLET PO SCH ×2 (07:20→12:34)
[2018-11-09] MEDS: PANTOprazole 40 MG TAB PO SCH (07:20)
[2018-11-09] MEDS: ENOXAPARIN INJ 40 MG/0.4 ML SYR SQ SCH (07:21)
[2018-11-09] MEDS: GABAPENTIN 100 MG CAP PO SCH ×2 (07:21→12:35)
[2018-11-09] MEDS: ALPRAZolam 0.5 MG TABLET PO SCH ×2 (07:22→12:34)
[2018-11-09] MEDS: OXYCODONE HCL IR 5 MG TAB (IMMEDIATE RELEASE) PO SCH ×2 (07:22→12:34)
--- NOTE | 2018-11-09 17:05 | Discharge Summary ---
Date of Service November 09, 2018 Admission HPI Per Admitting Provider 62 y/o M Hx HLD, spinal stenosis with narcotic dependence, LE edema and recurrent cellulitis. Recently developed BL cellulitis. He was evaluated in the ER and DCd after receiving Dalvance. He initially improved on f/u, however, his cellulitis has worsened over the past few days and he now has fevers as well. PMH: 1) Cervical and lumbar stenosis - states he is trying to schedule surgery and having some insurance issues 2) HLD 3) Depression/anxiety 4) Chronic LE edema with cellulitis - the pt states he has had cellulitis on/off for 3 years. 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 - does not drink alcohol Principal Diagnosis Venous reflux Discharge Exam Constitutional WD/WN, vitals as above Eyes PERRL, conjunctivae normal, anicteric sclerae ENMT external ear and nose normal, oropharynx normal Neck trachea midline, no thyromegaly Respiratory normal respiratory effort, lungs clear to auscultation Cardiovascular RRR, no murmur, no edema Gastrointestinal (Abdomen) normal bowel sounds, soft, nontender, no hepatosplenomegaly Musculoskeletal no cyanosis or clubbing, extremities motor strength 5/5 Skin no rashes, warm and dry Psychiatric A+Ox3, euthymic affect Discharge Data Allergies Allergy/AdvReac Type Severity Reaction Status Date / Time erythromycin base Allergy Intermediate Rash Verified 11/04/18 15:53 Consultations 11/04/18 17:10 ED Decision to Admit Stat 11/04/18 18:36 Consult Infectious Diseases Routine 11/05/18 09:59 Consult Case Management - Discharge Planning Routine Ordered Studies 11/07/18 17:17 US venous reflux LE BI Routine Hospital Course (1) Bilateral lower leg cellulitis: Has had 3 weeks of on/off lower extremity redness, pain. Initially thought to be cellulitis and was on ceftriaxone on 11/04 & 11/05 and daptomycin on 11/05 & 11/06. - Seen by ID on 11/07 who felt this was not infectious in nature. - Abx stopped on 11/06 for thought that this was chronic venous insufficiency instead of actual cellulitis - Venous reflux u/s done on 11/07 which showed bilateral venous reflux. Has now been off abx since 11/06 (except for the Dalvance he received previously). I do not think he has any current cellulitis. This appears to be venous reflux with waxing/waning symptoms depending on how long he has had his feet down. When legs are elevated, he has minimal pinkish hue, no warmth, and definitely no systemic signs of infection. - Received gradient stockings. Discussed leg exercises to improve venous reflux. Started low-dose gabapentin for the neuropathic pain from the swelling. (2) Lower extremity edema: Has bilateral venous reflux, diagnosed on ultrasound on 11/07. - Stopped home Lasix 20mg PO daily on 11/07 in favor of other venous reflux modalities. (3) Neuropathy: Bilateral lower toe numbness which has been present for years. Ddx includes venous reflux, neuropathy, or related to spinal stenosis. B12 & folate were both in normal range. ABIs on 11/01/2018 were normal with normal waveforms. - Started gabapentin on 11/07 with improvement (4) Spinal stenosis: No acute inpatient needs. - Can f/u with his pain specialist to continue his scheduled methadone (5) Depression: Has a very anxious and somewhat downcast affect. - Cont Buspar (6) DVT prophylaxis: Lovenox 40mg subcut daily Total Time Total Time Spent Total Time Spent (In Minutes): 35 Total Time Includes: Examination of the Patient, Discharge Planning and Medication Reconciliation Discharge Plan Discharge Items Patient Disposition: Home - Self-Care Reason For Visit: CELLULITIS Discharge Diagnosis: Lower extremity venous reflux - Not cellulitis or infection Discharge Goals: Decrease discomfort, Diagnostic testing and Improve disease control Activity: Resume your previous activity Non-emergency contact: Primary Care Provider Call non-emergency contact if: your symptoms worsen, your pain is not controlled and your temperature is above 100.5 Follow-up/Referrals: Hernando Morelos III, MD [Primary Care Provider] - 11/16/18 2:30 pm (Please, follow up with Dr. Morelos's associate, Ramila Arce PA-C, on ThursdayNovember 16 at 2:30 pm. *THE OFFICE IS LOCATED IN [address] [facility] [place] [facility]. THIS IS THE BIG [facility] NEXT [facility]. If you need to change this appointment, call the office at [phone].) Diet: Regular Addtl Provider Instructions: Elevate your legs throughout the day to prevent too much swelling and pain. Wear the VASILE hose or compression stockings when you are going to be on your feet for an extended time. You can take them off at night when your feet will be elevated. Please contact [facility] Office of Aging to to determine if you qualify for any services/Senior housing. If you are not eligible through Office of Aging, you can also call the [facility] Assistance Office at . They can also apply for and renew benefits from the comfort of their own home using [employer], the online resource for lucas assistance, the Supplemental Nutrition Assistance Program (SNAP), help with childcare provider, health care coverage, home heating assistance (LIHEAP), school meals, Family Planning Services, and long-term living services. Prescriptions: New gabapentin 100 mg capsule 100 mg PO TID Qty: 90 RF: 0 Continued atorvastatin 10 mg tablet 10 mg PO QAM RF: 0 methylphenidate HCl 10 mg tablet 20 mg PO QAM RF: 0 methylphenidate HCl 10 mg tablet 10 mg PO .QAFTERNOON RF: 0 methadone 10 mg tablet 10 mg PO QID RF: 0 alprazolam 0.5 mg tablet 0.5 mg PO TID RF: 0 pantoprazole 40 mg tablet,delayed release (DR/EC) 40 mg PO QAM RF: 0 buspirone 15 mg tablet 15 mg PO TID PRN (Reason: Panic Attack/Anxiety) RF: 0 oxycodone 10 mg tablet 10 mg PO TID RF: 0 Discontinued furosemide 20 mg tablet 20 mg PO QAM RF: 0 Stand-Alone Forms: [facility] Discharge Orders: Discharge Order (Routine); Ordered 11/09/18 Ordered By: Yann Romero Admission Data Admit Date/Time: 11/04/18 18:24 Attending Provider: Yann Romero Admit Provider: Jp Vines Primary Care Provider: Hernando Morelos III Other Providers: Jp Vines ; Shanann Snyder Service: Medical Other Interventions: Discharge Summary Assessment (RN) Last Done: 11/09/18 12:15 DC Date/Time DO NOT enter until pt leaves facility: 11/09/18 13:25
== END 2018-11-09 13:25 | disposition home or self-care (01) | DRG 603 ==
LOC: ED 14:33 → 4E 18:24 → SUATTDRO 18:24 → 4E 19:14

== ENCOUNTER 2019-02-27 16:03 | Inpatient (IN) ==
[2019-02-27] MEDS ORDERED: SODIUM CHLORIDE 0.9% 1000ML 1,000 ML IV ONE ×3 (16:21→19:05)
[2019-02-27] MEDS ORDERED: MoRPHine SULFATE 10 MG/ML CARP/VIAL IV STA (16:21)
[2019-02-27 16:45] LABS: iSTAT Creatinine 0.8 mg/dl (0.6-1.3); iSTAT Hemoglobin 15.3 g/dl (14.0-18.0); iSTAT Ionized Calcium 0.96 mmol/l (1.12-1.32); iSTAT Potassium 3.5 mEq/L (3.3-5.0)
[2019-02-27] MEDS ORDERED: fentaNYL citrate 100 MCG/2 ML VIAL IV STA (16:50)
[2019-02-27 17:05] LABS: Prothrombin Time 10.2 Seconds (9.0-12.0)
[2019-02-27 17:20] LABS: Basophils # (auto) 0.01 K/uL (0-0.2); Eosinophils # (auto) 0.01 K/uL (0-0.5); Hematocrit (blood only) 41.4 % (42-52); Hemoglobin 14.5 g/dL (14.0-18.0); Immature Granulocytes # (auto) 0.08 K/uL (0.00-0.02); Immature Granulocytes % (auto) 0.3 %; Lymphocytes # (auto) 0.78 K/uL (1.2-3.4); Lymphocytes % (auto) 3.2 %; Mean Corpuscular Hemoglobin 30.9 pg (25-34); Mean Corpuscular Volume 88.3 fL (80-100); Mean Platelet Volume 9.8 fL (7.4-10.4); Monocytes % (auto) 4.5 %; Neutrophils # (auto) 22.64 K/uL (1.4-6.5); Platelet Count 201 K/uL (130-400); RDW Coefficient of Variation 14.8 % (11.5-14.5); RDW Standard Deviation 47.4 fL (36.4-46.3); Red Blood Count 4.69 M/uL (4.7-6.1); White Blood Count 24.62 K/uL (4.8-10.8)
[2019-02-27] MEDS ORDERED: LORazepam 1 MG/2 ML VIAL IV STA (17:25)
[2019-02-27 17:45] LABS: Alanine Aminotransferase 29 U/L (12-78); Albumin Level 3.8 gm/dl (3.4-5.0); Alkaline Phosphatase 101 U/L (45-117); Aspartate Aminotransferase 43 U/L (15-37); BUN Creatinine Ratio 11.8 (10-20); Bilirubin,Total 0.8 mg/dl (0.2-1); Blood Urea Nitrogen 9 mg/dl (7-18); Calcium 8.4 mg/dl (8.5-10.1); Carbon Dioxide 26 mmol/L (21-32); Chloride 101 mmol/L (98-107); Creatinine Clr Calc Pharmacy 88.7 ml/min; Est GFR (African American) 112.4; Est GFR (Non-African American) 96.9; Glucose 123 mg/dl (70-99); Magnesium 2.1 mg/dl (1.8-2.4); Potassium 3.5 mmol/L (3.5-5.1); Sodium 140 mmol/L (136-145); Total Protein 7.5 gm/dl (6.4-8.2); Troponin I < 0.015 ng/ml (0-0.045)
[2019-02-27] MEDS ORDERED: IOVERSOL 100ml IV PRN (18:00)
[2019-02-27 18:10] LABS: Creatine Kinase 452 U/L (39-308)
--- NOTE | 2019-02-27 18:13 | CT Scan Report ---
HEAD CT NONCONTRAST CT DOSE: HISTORY: fall, head injury TECHNIQUE: Multiaxial CT images of the head were performed without the use of intravenous contrast. A utomated exposure control was utilized for this study. A dose lowering technique was utilized adheri ng to the principles of ALARA. Comparison: None. Findings: The paranasal sinuses and mastoid air cells are clear. The calvarium and skull base are int act. The ventricles and sulci are within normal limits. There is no mass, hematoma, midline shift, or acute infarct. Impression: Mild motion artifact. No acute intracranial abnormality. Electronically signed by: Cash Santoro M.D. 02/27/2019 6:12 PM
--- NOTE | 2019-02-27 18:16 | CT Scan Report ---
CERVICAL SPINE CT CT DOSE: 1961.80 mGy.cm HISTORY: fall, head injury TECHNIQUE: Multiaxial CT images of the cervical spine were performed and reformatted in the sagittal and coronal plane without the use of contrast. A dose lowering technique was utilized adhering to th e principles of ALARA. COMPARISON: None. FINDINGS: No fracture or subluxation. Prevertebral soft tissues and the C1-C2 interval are intact. Ad vanced degenerative changes seen throughout the majority of the cervical spine. IMPRESSION: No fractures within the cervical spine. Electronically signed by: Cash Santoro M.D. 02/27/2019 6:14 PM
--- NOTE | 2019-02-27 18:22 | CT Scan Report ---
CHEST CT WITH CONTRAST CT DOSE: HISTORY: left chest trauma/deformity TECHNIQUE: Multiaxial CT images of the chest were performed following the intravenous administration of contrast. A dose lowering technique was utilized adhering to the principles of ALARA. COMPARISON: None. FINDINGS: Healing left anterior fourth and fifth rib fractures. Focal deformity within the left anter ior sixth rib consistent with an age-indeterminate fracture. The central airways are patent. No pneum othorax. There is mild elevation of the left hemidiaphragm. Left basilar linear densities favor subse gmental atelectasis. Small cluster groundglass nodular opacities within the superior segment of the l eft lower lobe and within the right lung apex. Right basilar linear densities also favor subsegmental atelectasis. No pleural or pericardial effusions. No mediastinal lymphadenopathy. A single mildly en larged left hilar lymph node measuring 1.3 cm. There is also a single borderline enlarged right hilar lymph node measuring 1.1 cm. Normal esophagus. No mediastinal hematoma. The abdominal aorta is farzana l in caliber with no evidence for dissection. The main pulmonary arteries are patent. IMPRESSION: 1. Healing left anterior fourth and fifth rib fractures. Focal deformity within the left anterior six th rib consistent with an age-indeterminate fracture. 2. No pneumothorax. 3. Bibasilar linear densities consistent with subsegmental atelectasis. 4. A small cluster of groundglass nodular opacities within the superior segment of the left lower lob e and right lung apex. These favor mild infectious/inflammatory change. 5. A few mildly enlarged bilateral hilar lymph nodes. Electronically signed by: Cash Sanotro M.D. 02/27/2019 6:20 PM
--- NOTE | 2019-02-27 18:28 | CT Scan Report ---
ABDOMEN AND PELVIS CT WITH IV CONTRAST CT DOSE: HISTORY: left flank trauma and deformity TECHNIQUE: Multiaxial CT images of the abdomen and pelvis were performed following the use of intrave nous contrast. A dose lowering technique was utilized adhering to the principles of ALARA. COMPARISON STUDY: None. FINDINGS: Mild elevation of the left hemidiaphragm with bibasilar linear densities suggesting subsegm ental atelectasis. No pneumoperitoneum. No pneumatosis. Left anterior sixth rib deformities again not ed. Otherwise, no additional fractures within the abdomen or pelvis. The liver, spleen, adrenal gland s, gallbladder, pancreas, and left kidney are unremarkable. There is a 9 mm hypodense lesion within t he lower pole of the right kidney. This is technically too small to characterize but favors a cyst. C alcified plaque within the normal caliber abdominal aorta. The bladder is unremarkable. No pelvic erick e fluid. Colonic diverticulosis. No bowel wall thickening or obstruction. Moderate stool within the c olon. IMPRESSION: 1. Please refer to the dedicated chest CT performed same day for further evaluation of the left rib a bnormalities. 2. Otherwise, no acute traumatic process within the abdomen or pelvis. 3. Additional findings as described above. Electronically signed by: Cash Santoro M.D. 02/27/2019 6:26 PM
[2019-02-27] MEDS ORDERED: PIPERACILL/TAZOBAC CONSULT ACTIVE PRN (18:33)
[2019-02-27] MEDS ORDERED: PIPERACILLIN/TAZOBACTAM 4.5 GM/120 ML BAG IV ONE (18:33)
[2019-02-27] MEDS ORDERED: VANCOMYCIN HCL 1,500 MG in SODIUM CHLORIDE 0.9% 500 ML IV ONE (18:33)
[2019-02-27] MEDS ORDERED: VANCOMYCIN CONSULT ACTIVE PRN (18:33)
[2019-02-27] MEDS ORDERED: metroNIDAZOLE 500 MG/100 ML BAG IV STA (18:38)
[2019-02-27] MEDS ORDERED: DOXYCYCLINE HYCLATE 100 MG in DEXTROSE 5% 100 ML IV STA (18:38)
[2019-02-27] MEDS ORDERED: cefTRIAXone SODIUM 1,000 MG/50 ML BAG IV STA (18:38)
[2019-02-27 18:43] LABS: Appearance Urine Clear (Clear); Bacteria Urine Automated Negative (Negative); Bilirubin Urine Negative (Negative); Blood Urine Negative (Negative); Cast Urine Automated 0 /lpf (0-5); Color Urine Yellow; Glucose Urine UA Negative (Negative); Ketones Urine Trace (Negative); Leukocyte Esterase Urine Negative (Negative); Nitrite Urine Negative (Negative); Protein Urine Trace (Negative); RBC Urine Automated 0-4 /hpf (0-4); Specific Gravity Urine 1.017 (1.000-1.030); Urobilinogen Urine Negative (Negative); pH Urine 6.5 (4.5-7.5)
--- NOTE | 2019-02-27 19:12 | Emergency Department Note ---
Entered by Karmen Saeed acting as a scribe for Marvin Og MD ED Provider Note Name: Juan Carlos Fleming Age: 63 Arrives Via: Ambulance Informant: Patient. Nursing staff CC: Fall HPI: A 63 year old male arrives for evaluation of a fall. Patient notes feeling increasing weakness over the last week. He has been having increased cough and shortness of breath as well. last night he was trying to walk when he felt weak and his feet started hurting so he fell to ground hitting left ribs on the chair. After a few hours he drug himself in to chair, then fell out again striking his head. He got up eventually again but due to continued weakness EMS consulted. Patient notes left rib pain, headache, and weakness. He admits chronic urinary incontinence. He has chronic pain which he uses methadone for. He denies previous episode of being this weak. Denies recent antibiotics. EMS gave him Fentanyl IV with mild improvement in pain. Movement makes pain worse, rest makes better. Denies abdominal pain, new back pain, rashes, fevers, neck pain, nor other symptoms. ROS: See above HPI for pertinent positives & negatives. A total of 10 systems reviewed and were otherwise negative. Past Medical History: Anxiety. Arthritis. Hyperlipidemia. Depression. Spinal stenosis. Neuropathy. Past Surgical History: Hx of oral surgery and hernia repair. Family History: Diabetes. Depression. Cardiac disorder. HTN Social History: Retired. Home Medications: Alprazolam. Gabapentin 100 mg. Methadone 10 mg. Pantoprazole 40 mg Allergies Erythromycin Physical: Vitals: BP 123/99, P 99, R 20, O2 94%, Temp 99.0 Exam: GENERAL: Patient is very uncomfortable appearing and in severe distress. Chronically unwell appearing. Cachectic. EYES: No scleral icterus, unremarkable pupils. ENT: Mucous membranes moist, no nasal congestion. NECK: No masses appreciated, no meningismus, trachea is midline. RESPIRATORY: No dyspnea. Clear to auscultation and equal bilaterally. No wheeze, no rhonchi. CARDIOVASCULAR: Regular rate and rhythm. No murmurs, rubs, gallops appreciated. CHEST: Clutching his left chest with bruising over the left chest wall mild defo rmity of ribs palpated over lateral left breast at point of TTP. GASTROINTESTINAL: Abdomen soft, tenderness over the LUQ of abdomen, no peritonitis. Bowel sounds positive. No masses appreciated. BACK: Tenderness to palpation of entire back. EXTREMITIES: Normal motion all extremities, no cyanosis, no edema. NEUROLOGIC: Alert and oriented, no acute motor or sensory deficits, no focal weakness, cranial nerves grossly intact. SKIN: Bruise of the left anterior chin. Abrasion over the forehead. ED Course: Prior Medical Record, Triage/Nursing Notes, Medications, Allergies reviewed by Me Vital Signs: reviewed and remarkable for wnl Labs: Reviewed and remarkable for elevated wbc, elevated lactate Interventions: saline lock, morphine 10mg IV, fentanyl 100mcg IV, ativan 1mg IV, Rocephin 1gm IV, Doxy 100mg IV, Flagyl 500mg IV Imaging: Radiology results as stated below per my review and the radiologist's interpretation: CERVICAL SPINE CT CT DOSE: 1961.80 mGy.cm HISTORY: fall, head injury TECHNIQUE: Multiaxial CT images of the cervical spine were performed and reformatted in the sagittal and coronal plane without the use of contrast. A dose lowering technique was utilized adhering to the principles of ALARA. COMPARISON: None. FINDINGS: No fracture or subluxation. Prevertebral soft tissues and the C1-C2 interval are intact. Advanced degenerative changes seen throughout the majority of the cervical spine. IMPRESSION: No fractures within the cervical spine. Electronically signed by: Cash Santoro M.D. 02/27/2019 6:[address] WITH CONTRAST CT DOSE: HISTORY: left chest trauma/deformity TECHNIQUE: Multiaxial CT images of the chest were performed following the intravenous administration of contrast. A dose lowering technique was utilized adhering to the principles of ALARA. COMPARISON: None. FINDINGS: Healing left anterior fourth and fifth rib fractures. Focal deformity within the left anterior sixth rib consistent with an age-indeterminate fracture. The central airways are patent. No pneumothorax. There is mild eleva tion of the left hemidiaphragm. Left basilar linear densities favor subsegmental atelectasis. Small cluster groundglass nodular opacities within the superior segment of the left lower lobe and within the right lung apex. Right basilar linear densities also favor subsegmental atelectasis. No pleural or pericardial effusions. No mediastinal lymphadenopathy. A single mildly enlarged left hilar lymph node measuring 1.3 cm. There is also a single borderline enlarged right hilar lymph node measuring 1.1 cm. Normal esophagus. No mediastinal hematoma. The abdominal aorta is normal in caliber with no evidence for dissection. The main pulmonary arteries are patent. IMPRESSION: 1. Healing left anterior fourth and fifth rib fractures. Focal deformity within the left anterior sixth rib consistent with an age-indeterminate fracture. 2. No pneumothorax. 3. Bibasilar linear densities consistent with subsegmental atelectasis. 4. A small cluster of groundglass nodular opacities within the superior segment of the left lower lobe and right lung apex. These favor mild infectious/inflammatory change. 5. A few mildly enlarged bilateral hilar lymph nodes. Electronically signed by: Cash Santoro M.D. 02/27/2019 6:[address] NON[address]AST CT DOSE: HISTORY: fall, head injury TECHNIQUE: Multiaxial CT images of the head were performed without the use of intravenous contrast. Automated exposure control was utilized for this study. A dose lowering technique was utilized adhering to the principles of ALARA. Comparison: None. Findings: The paranasal sinuses and mastoid air cells are clear. The calvarium and skull base are intact. The ventricles and sulci are within normal limits. There is no mass, hematoma, midline shift, or acute infarct. Impression: Mild motion artifact. No acute intracranial abnormality. Electronically signed by: Cash Santoro M.D. 02/27/2019 6:12 PM EKG: Per My Interpretation: Indication weakness: NSR 100bpm qtc 441. No ectopy nor ischemia. Similar to ekg 10/19/18 Blood pressure: 123/99 Elevated - [place] to be Situation. Course: 1623: The patient was seen and evaluated in room B10. A complete history and physical examination was performed. 1650: Nursing staff states the patient requested more pain medication at this time. 1725: He states he still has 10/10 pain. On exam he appears much more comfortable though he is still anxious. He had an upper respiratory cold since last week and has had a mild cough since. 1747: I checked on the patient at this time. He is going to CAT scan. Multiple further rechecks. Patients pain/anxiety much improved. Breathing comfortably. Agreeable to inpatient treatment. Consults: Dr Melquiades HAMILTON Hospitalist who requests cancelling Zosyn/Vanco and ordering Rocephin/Doxy/Flagyl Disposition: hospitalization Differentials: Differential: Intracranial Injury, Cervical Injury, Intrathoracic/Abdominal Injury, Neurologic Injuries, Fractures/Dislocations, Lacerations, Tetanus Status, amongst other pathologies entertained Medical Decision Makin yr old cachetic chronically unwell male with worsening weakness and cough over the last few days who fell last night on left ribs and spent some time laying on the ground overnight. Did hit chin/head as well. Given multiple areas of injury felt that ct head/cervical/chest/a/p all indicated. Extensive labs ordered. on arrival started with pain meds and fluids. He was afebrile with OK vitals on arrival. Once WBC returned elevated Blood Cultures and Lactate ordered. With return of elevated Lactate I went ahead with another bolus NSS to get 30ml/kg fluid resus though will not vitals stable. Pain controlled with morphine/fentanyl as well as some ativan for anxiety/spasm. I initially ordered Zosyn/Vanc for empiric broad spectrum treatment of pneumonia though after reviewing with hospitalist, Dr Arnett requested I cancel those antibiotics and given Rocephin/Doxy and will given Flagyl for possible aspiration given bilateral pneumonia on CT. He does have rib fractures left side which appear old on CT though could be hiding new fracture which would be consistent with how uncomfortable he is. He does not have ICH nor cervical fracture. He does not require transfer to trauma center for this. He is hemodynamically stable at time of hospitalist consult. Impression: Pneumonia Bilateral Sepsis Lactic Acidosis Leukocytosis Left Rib Fracture Critical Care: I have personally spent greater than 30 minutes of critical care time in the direct management of this patient. Bilateral pneumonia with severe leukocytosis and lactic acidosis requiring fluid/abx resus. This was a life/limb threatening event. This includes time spent evaluating patient, direct bedside care, chart review, placing orders, interpretation of diagnostic studies, discussion with consultants, patient, and family members, as well as other required patient management activities. This 30 minutes is in excess of all separately billable procedures. The scribe's documentation has been prepared under my direction and personally reviewed by me in its entirety. I confirm that the note above accurately reflects all work, treatment, procedures, and medical decision making performed by me. Marvin Og MD Impression & Plan Pneumonia, Sepsis, Acidosis, lactic, Leukocytosis, Left rib fracture Past Med/Surg History Medical History Anxiety (Acute) Arthritis (Acute) Degenerative cervical spinal stenosis (Acute) Hearing difficulty (Acute) Hyperlipidemia (Acute) Stomach ulcer (Resolved) Depression Spinal stenosis Neuropathy Bilateral lower leg cellulitis (Resolved) Surgical History History of hernia repair History of oral surgery Family History Mother Anxiety Depression Cardiac disorder Hypertension Diabetes Mesothelioma Father Mesothelioma Diabetes Brother Diabetes Other No significant family history Social History Preferred Language: Bulgarian Communication Ability: Effective Support Services Manager Required: No Beliefs That Will Affect Care: None Current Living Situation: Alone Feels Safe at Home: No Is there a partner from a previous relationship who is making you feel unsafe now?: No Smoking Status: Never smoker Second Hand Exposure: No ; Hx Alcohol Use: No Hx Substance Use: No Results & Data Vital Signs Vital Signs - 24 hr 02/27/19 16:15 Temperature 37.2 C Temperature Source Oral Sepsis Recent Fever Within 48 Hours No Sepsis Action Taken by Nursing No Action Required Pulse Rate 99 H Respiratory Rate 20 Respiratory Depth Normal Blood Pressure 123/99 Blood Pressure Mean 107 Pulse Oximetry 94 Oxygen Delivery Method Room Air Home Medications Current Medication List: was personally reviewed by me Laboratory Data Attestation: I reviewed the patient's lab results. Result diagrams: 02/27/19 16:29 02/27/19 16:29 Lab Results 02/27/19 02/27/19 02/27/19 Range/Units 10:20 16:29 16:29 WBC 24.62 H (4.8-10.8) K/uL RBC 4.69 L (4.7-6.1) M/uL Hgb 14.5 (14.0-18.0) g/dL POC Hgb (14.0-18.0) g/dl Hct 41.4 L (42-52) % POC Hct (42-52) % MCV 88.3 (80-100) fL MCH 30.9 (25-34) pg MCHC 35.0 (32-36) g/dL RDW Std Deviation 47.4 H (36.4-46.3) fL RDW Coeff of Stephen 14.8 H (11.5-14.5) % Plt Count 201 (130-400) K/uL MPV 9.8 (7.4-10.4) fL Immature Gran % (Auto) 0.3 % Neut % (Auto) 92.0 % Lymph % (Auto) 3.2 % Bacon % (Auto) 4.5 % Eos % (Auto) 0.0 % Baso % (Auto) 0.0 % Immature Gran # (Auto) 0.08 H (0.00-0.02) K/uL Neut # (Auto) 22.64 H (1.4-6.5) K/uL Lymph # (Auto) 0.78 L (1.2-3.4) K/uL Bacon # (Auto) 1.10 H (0.11-0.59) K/uL Eos # (Auto) 0.01 (0-0.5) K/uL Baso # (Auto) 0.01 (0-0.2) K/uL PT (9.0-12.0) Seconds INR (0.9-1.1) POC Sodium (135-144) mEq/L Sodium 140 (136-145) mmol/L POC Potassium (3.3-5.0) mEq/L Potassium 3.5 (3.5-5.1) mmol/L POC Chloride (101-112) mEq/L Chloride 101 (98-107) mmol/L Carbon Dioxide 26 (21-32) mmol/L POC Total CO2 (24-31) mEq/l Anion Gap 13.0 H (3-11) POC Anion Gap (16-25) mmol/L POC BUN (7-18) mg/dl BUN 9 (7-18) mg/dl Creatinine 0.75 (0.6-1.4) mg/dl POC Creatinine (0.6-1.3) mg/dl Est Cr Clr Drug Dosing 88.7 ml/min Est GFR ( Amer) 112.4 Est GFR (Non-Af Amer) 96.9 BUN/Creatinine Ratio 11.8 (10-20) Glucose 123 H (70-99) mg/dl POC Glucose (other) (70-99) mg/dl Lactate (0.4-2.0) mmol/L Calcium 8.4 L (8.5-10.1) mg/dl POC Ioniz Calcium Tom (1.12-1.32) mmol/l Magnesium 2.1 (1.8-2.4) mg/dl Total Bilirubin 0.8 (0.2-1) mg/dl Direct Bilirubin (0-0.2) mg/dl AST 43 H (15-37) U/L ALT 29 (12-78) U/L Alkaline Phosphatase 101 (45-117) U/L Total Creatine Kinase 452 H (39-308) U/L Troponin I < 0.015 (0-0.045) ng/ml Total Protein 7.5 (6.4-8.2) gm/dl Albumin 3.8 (3.4-5.0) gm/dl Specimen Hemolysis Urine Color Yellow Urine Appearance Clear (Clear) Urine pH 6.5 (4.5-7.5) Ur Specific [place] 1.017 (1.000-1.030) Urine Protein Trace H (Negative) Urine Glucose (UA) Negative (Negative) Urine Ketones Trace H (Negative) Urine Blood Negative (Negative) Urine Nitrite Negative (Negative) Urine Bilirubin Negative (Negative) Urine Urobilinogen Negative (Negative) Ur Leukocyte Esterase Negative (Negative) Urine WBC (Auto) 1-5 (0-5) /hpf Urine RBC (Auto) 0-4 (0-4) /hpf U Hyaline Cast (Auto) 0 (0-5) /lpf U Epithel Cells (Auto) 10-20 H (0-5) /lpf Urine Bacteria (Auto) Negative (Negative) 02/27/19 02/27/19 02/27/19 Range/Units 16:29 16:31 18:18 WBC (4.8-10.8) K/uL RBC (4.7-6.1) M/uL Hgb (14.0-18.0) g/dL POC Hgb 15.3 (14.0-18.0) g/dl Hct (42-52) % POC Hct 45 (42-52) % MCV (80-100) fL MCH (25-34) pg MCHC (32-36) g/dL RDW Std Deviation (36.4-46.3) fL RDW Coeff of Stephen (11.5-14.5) % Plt Count (130-400) K/uL MPV (7.4-10.4) fL Immature Gran % (Auto) % Neut % (Auto) % Lymph % (Auto) % Bacon % (Auto) % Eos % (Auto) % Baso % (Auto) % Immature Gran # (Auto) (0.00-0.02) K/uL Neut # (Auto) (1.4-6.5) K/uL Lymph # (Auto) (1.2-3.4) K/uL Bacon # (Auto) (0.11-0.59) K/uL Eos # (Auto) (0-0.5) K/uL Baso # (Auto) (0-0.2) K/uL PT 10.2 (9.0-12.0) Seconds INR 1.0 (0.9-1.1) POC Sodium 138 (135-144) mEq/L Sodium (136-145) mmol/L POC Potassium 3.5 (3.3-5.0) mEq/L Potassium (3.5-5.1) mmol/L POC Chloride 98 L (101-112) mEq/L Chloride (98-107) mmol/L Carbon Dioxide (21-32) mmol/L POC Total CO2 24 (24-31) mEq/l Anion Gap (3-11) POC Anion Gap 20.0 (16-25) mmol/L POC BUN 7 (7-18) mg/dl BUN (7-18) mg/dl Creatinine (0.6-1.4) mg/dl POC Creatinine 0.8 (0.6-1.3) mg/dl Est Cr Clr Drug Dosing ml/min Est GFR ( Amer) Est GFR (Non-Af Amer) BUN/Creatinine Ratio (10-20) Glucose (70-99) mg/dl POC Glucose (other) 137 H (70-99) mg/dl Lactate 3.7 H* (0.4-2.0) mmol/L Calcium (8.5-10.1) mg/dl POC Ioniz Calcium Tom 0.96 L (1.12-1.32) mmol/l Magnesium (1.8-2.4) mg/dl Total Bilirubin (0.2-1) mg/dl Direct Bilirubin (0-0.2) mg/dl AST (15-37) U/L ALT (12-78) U/L Alkaline Phosphatase (45-117) U/L Total Creatine Kinase (39-308) U/L Troponin I (0-0.045) ng/ml Total Protein (6.4-8.2) gm/dl Albumin (3.4-5.0) gm/dl Specimen Hemolysis Urine Color Urine Appearance (Clear) Urine pH (4.5-7.5) Ur Specific [place] (1.000-1.030) Urine Protein (Negative) Urine Glucose (UA) (Negative) Urine Ketones (Negative) Urine Blood (Negative) Urine Nitrite (Negative) Urine Bilirubin (Negative) Urine Urobilinogen (Negative) Ur Leukocyte Esterase (Negative) Urine WBC (Auto) (0-5) /hpf Urine RBC (Auto) (0-4) /hpf U Hyaline Cast (Auto) (0-5) /lpf U Epithel Cells (Auto) (0-5) /lpf Urine Bacteria (Auto) (Negative) Administered Medications Ioversol (Optiray 320 100ml) 94 ml IV ONCE PRN PRN Reason: Interaction Checking Stop: 03/03/19 17:59 Last Admin: 02/27/19 18:00 Dose: 94 ml Documented by: [id number] Discontinued Medications Fentanyl Citrate (Fentanyl Citrate) 100 mcg IV NOW STA Stop: 02/27/19 16:51 Last Admin: 02/27/19 17:00 Dose: 100 mcg Documented by: [id number] Sodium Chloride (Nss 1000ml) 1,000 mls @ 999 mls/hr IV .Q1H1M ONE Stop: 02/27/19 17:21 Last Infusion: 02/27/19 18:13 Dose: 0 mls/hr Documented by: [id number] Admin: 02/27/19 17:02 Dose: 999 mls/hr Documented by: [id number] Lorazepam (Ativan) 1 mg in 2 mls @ 2 mls/min IV NOW STA Stop: 02/27/19 17:26 Last Admin: 02/27/19 17:53 Dose: 2 mls/min Documented by: [id number] Sodium Chloride (Nss 1000ml) 1,000 mls @ 999 mls/hr IV .Q1H1M ONE Stop: 02/27/19 18:25 Last Admin: 02/27/19 18:45 Dose: 999 mls/hr Documented by: [id number] Morphine Sulfate (Morphine Sulfate) 10 mg IV NOW STA Stop: 02/27/19 16:22 Last Admin: 02/27/19 16:26 Dose: 10 mg Documented by: [id number] Imaging Data Radiologist's Impression: Radiology results as stated below per my review and the radiologist's interpretation: CERVICAL SPINE CT CT DOSE: 1961.80 mGy.cm HISTORY: fall, head injury TECHNIQUE: Multiaxial CT images of the cervical spine were performed and reformatted in the sagittal and coronal plane without the use of contrast. A dose lowering technique was utilized adhering to the principles of ALARA. COMPARISON: None. FINDINGS: No fracture or subluxation. Prevertebral soft tissues and the C1-C2 interval are intact. Advanced degenerative changes seen throughout the majority of the cervical spine. IMPRESSION: No fractures within the cervical spine. Electronically signed by: Cash Santoro M.D. 02/27/2019 6:[address] CONTRAST CT DOSE: HISTORY: left chest trauma/deformity TECHNIQUE: Multiaxial CT images of the chest were performed following the intravenous administration of contrast. A dose lowering technique was utilized adhering to the principles of ALARA. COMPARISON: None. FINDINGS: Healing left anterior fourth and fifth rib fractures. Focal deformity within the left anterior sixth rib consistent with an age-indeterminate fracture. The central airways are patent. No pneumothorax. There is mild elevation of the left hemidiaphragm. Left basilar linear densities favor subsegmental atelectasis. Small cluster groundglass nodular opacities within the superior segment of the left lower lobe and within the right lung apex. Right basilar linear densities also favor subsegmental atelectasis. No pleural or pericardial effusions. No mediastinal lymphadenopathy. A single mildly enlarged left hilar lymph node measuring 1.3 cm. There is also a single borderline enlarged right hilar lymph node measuring 1.1 cm. Normal esophagus. No mediastinal hematoma. The abdominal aorta is normal in caliber with no evidence for dissection. The main pulmonary arteries are patent. IMPRESSION: 1. Healing left anterior fourth and fifth rib fractures. Focal deformity within the left anterior sixth rib consistent with an age-indeterminate fracture. 2. No pneumothorax. 3. Bibasilar linear densities consistent with subsegmental atelectasis. 4. A small cluster of groundglass nodular opacities within the superior segment of the left lower lobe and right lung apex. These favor mild infectious/inflammatory change. 5. A few mildly enlarged bilateral hilar lymph nodes. Electronically signed by: Cash Santoro M.D. 02/27/2019 6:[address] CT DOSE: HISTORY: fall, head injury TECHNIQUE: Multiaxial CT images of the head were performed without the use of intravenous contrast. Automated exposure control was utilized for this study. A dose lowering technique was utilized adhering to the principles of ALARA. Comparison: None. Findings: The paranasal sinuses and mastoid air cells are clear. The calvarium and skull base are intact. The ventricles and sulci are within normal limits. There is no mass, hematoma, midline shift, or acute infarct. Impression: Mild motion artifact. No acute intracranial abnormality. Electronically signed by: Cash Santoro M.D. 02/27/2019 6:12 PM Blood Pressure Blood Pressure Findings: Elevated blood pressure Blood Pressure Disposition: elevated BP felt to be situational Discharge Plan Visit Data Chief Complaint: Fall ED Provider: Marvin Og Discharge Problem: Pneumonia, Sepsis, Acidosis, lactic, Leukocytosis, Left rib fracture Forms Stand Alone Forms: [facility] Prescriptions Prescriptions: No Action Narcan 4 mg/actuation spray,non-aerosol 1 sprays INTNAS Q2M Qty: 2 RF: 5 gabapentin 100 mg capsule 100 mg PO TID Qty: 90 RF: 0 alprazolam 0.5 mg tablet 0.5 mg PO TID PRN (Reason: anxiety) Qty: 90 RF: 0 methadone 10 mg tablet 10 mg PO Q4H PRN (Reason: pain) Qty: 112 RF: 0 methylphenidate HCl 10 mg tablet 10 mg PO TID PRN (Reason: LETHARGY) Qty: 84 RF: 0 oxycodone 10 mg tablet 10 mg PO TID PRN (Reason: pain) Qty: 90 RF: 0 atorvastatin 10 mg tablet 10 mg PO QAM RF: 0 pantoprazole 40 mg tablet,delayed release (DR/EC) 40 mg PO QAM RF: 0 buspirone 15 mg tablet 15 mg PO TID PRN (Reason: Panic Attack/Anxiety) RF: 0 Discharge Problem: Pneumonia Qualifiers: Pneumonia type: due to unspecified organism Laterality: bilateral Lung location: unspecified part of lung Qualified Code(s): J18.9 - Pneumonia, unspecified organism Sepsis Qualifiers: Sepsis type: sepsis due to unspecified organism Sepsis acute organ dysfunction status: unspecified Qualified Code(s): A41.9 - Sepsis, unspecified organism Leukocytosis Qualifiers: Leukocytosis type: unspecified Qualified Code(s): D72.829 - Elevated white blood cell count, unspecified Left rib fracture Qualifiers: Encounter type: initial encounter Rib fracture type: single rib Fracture type: closed Qualified Code(s): S22.32XA - Fracture of one rib, left side, initial encounter for closed fracture The scribe's documentation has been prepared under my direction and personally reviewed by me in its entirety. I confirm that the note above accurately reflect s all work, treatment, procedures, and medical decision making performed by me.
[2019-02-27] MEDS ORDERED: MoRPHine SULFATE 10 MG/ML CARP/VIAL IV PRN (19:40)
--- NOTE | 2019-02-27 20:39 | History & Physical Report ---
Date of Service February 27, 2019 Assessment & Plan (1) Sepsis: Admit patient to PCU on telemetry Vital signs every 4 hours Patient already received Zosyn and vancomycin ceftriaxone and doxycycline in the ER. Trending down leukocytosis Continue ceftriaxone and doxycycline IV for pneumonia CBC CMP daily. Repeat lactic acid, procalcitonin pending BNP Polypharmacy: Hold oxycodone 10 mg tablet p.o. 3 times a day as needed, gabapentin 100 mg capsule p.o. 3 times daily, buspirone 15 mg p.o. 3 times daily as needed. Continue with alprazolam 0.5 mg tablet 3 times daily as needed for anxiety, methadone 10 mg tablet p.o. every 4 as needed and trend down Methylphenidate 10 mg p.o. 3 times daily as needed, naloxone 4 mg nasal spray. Hold opioids if patient respiration is less than 12 and oxygenation less than 92. Would consider repeating chest x-ray or CT of the chest (after acute phase)for a small cluster of groundglass nodular opacities within the superior segment segment of the left lower lobe and right upper apex which was not seen on the chest x-rays before November 04, 2018. Appears at that point to be inflammatory Consult pain management DVT prophylaxis Lovenox 40 mg subcu daily Full code Present on Admission?: Yes (2) Pneumonia: As the above Encourage incentive spirometry Present on Admission?: Yes (3) Acidosis, lactic: See above, repeat lactic acid IV fluid hydration Present on Admission?: Yes (4) Leukocytosis: See above (5) Left rib fracture: Fracture is nondisplaced, continue medical management Present on Admission?: Yes (6) Chronic pain: See above.Patient at high risk of polypharmacy. Complains of chronic pain related to arthritis and cervical stenosis. Consulted pain management. Appreciate their recommendations Present on Admission?: Yes History of Present Illness Chief Complaint: :Patient is a 63 years old male with past medical history of chronic pain, depression, neuropathy, arthritis, spinal stenosis who presents to the emergency room with complaint of frequent falls increased weakness over the last week. Patient also reports having nonproductive cough and being short of breath. Patient had several frequent falls of which one occurred this morning. Patient said nothing helps his pain or relieve his pain. Patient is on a variety of pain medication such as methadone oxycodone alprazolam buspirone methylphenidate gabapentin and naloxone. Patient said all of these medications together does not help him with his chronic pain. 1 of these falls resulted with left anterior fourth and fifth rib fractures seen on the chest x-ray and process of healing. Patient denies fever chills, chest pain except for rib pain, frequency urgency abdominal pain hemoptysis hematemesis hematuria or melena, nausea or vomiting. Labs are reviewed: White blood cell count 24.62 hemoglobin 15.3 hematocrit 45 platelets 201. PT 10.2, INR 1, BNP pending, procalcitonin pending. Sodium 138 potassium 3.5 chloride 98 BUN 7 creatinine 0.75 GFR 96.9, lactic acid 3.7 AST 43 ALT 29 creatinine kinase 452, troponin 0 0.015. Chest x-ray: Healing left anterior fourth and fifth rib fracture. Focal deformity within the left anterior sixth rib consistent with an age-inde terminate fracture. No pneumothorax. Bibasilar liner densities consistent with subsegmental atelectasis. A small cluster of groundglass nodular opacity within the superior segment of the left lower lobe and right lung apex. These favor mild infectious inflammatory changes. A few mildly enlarged bilateral hilar lymph nodes. Head CT no acute intracranial abnormality. No fracture seen on the cervical spine and the CT. Primary Care Provider: Hernando Morelos MD Allergies Allergy/AdvReac Type Severity Reaction Status Date / Time erythromycin base Allergy Intermediate Rash Verified 02/27/19 17:23 Home Medications Home Medications Medication Instructions Recorded Confirmed Type atorvastatin 10 mg PO QAM 10/19/18 02/27/19 History buspirone 15 mg PO TID PRN 10/19/18 02/27/19 History pantoprazole 40 mg PO QAM 10/19/18 02/27/19 History naloxone 4 mg/actuation nasal spray 1 sprays INTNAS Q2M #2 ea 02/01/19 02/27/19 Rx gabapentin 100 mg capsule 100 mg PO TID #90 cap 02/17/19 02/27/19 Rx alprazolam 0.5 mg tablet 0.5 mg PO TID PRN #90 tab 02/25/19 02/27/19 Rx methadone 10 mg tablet 10 mg PO Q4H PRN #112 tab 02/25/19 02/27/19 Rx methylphenidate 10 mg tablet 10 mg PO TID PRN #84 tab 02/25/19 02/27/19 Rx oxycodone 10 mg tablet 10 mg PO TID PRN #90 tab 02/25/19 02/27/19 Rx Past Med/Surg History Medical History Anxiety (Acute) Arthritis (Acute) Degenerative cervical spinal stenosis (Acute) Hearing difficulty (Acute) Hyperlipidemia (Acute) Stomach ulcer (Resolved) Depression Spinal stenosis Neuropathy Bilateral lower leg cellulitis (Resolved) Surgical History History of hernia repair History of oral surgery Family History Mother Anxiety Depression Cardiac disorder Hypertension Diabetes Mesothelioma Father Mesothelioma Diabetes Brother Diabetes Other No significant family history Social History Preferred Language: Bermudian Communication Ability: Effective Biometrics Specialist Required: No Beliefs That Will Affect Care: None Current Living Situation: Alone Feels Safe at Home: No Is there a partner from a previous relationship who is making you feel unsafe now?: No Smoking Status: Never smoker Second Hand Exposure: No ; Hx Alcohol Use: No Hx Substance Use: No Review of Systems Review of Systems: All systems reviewed & are unremarkable except as noted in HPI & below Physical Exam Constitutional: WD/WN, vitals as above well developed Eyes: PERRL, conjunctivae normal, anicteric sclerae ENMT: external ear and nose normal, oropharynx normal Neck: trachea midline, no thyromegaly Respiratory: + dullness to percussion and + cough Auscultation: + crackles, + wheezes and + bronchovesicular breath sounds Cardiovascular: RRR, no murmur, no edema Gastrointestinal (Abdomen): normal bowel sounds, soft, nontender, no hepatosplenomegaly Musculoskeletal: no cyanosis or clubbing, extremities motor strength 5/5 Skin: + erythema (Lower extremities bilaterally) Neurologic: patellar DTR's 2+ bilat, sensation intact Psychiatric: A+Ox3, euthymic affect Lymphatic: no cervical or axillary lymphadenopathy Results & Data Vital Signs (Past 12 Hours) Vital Signs Temp Pulse Resp BP Pulse Ox 02/27/19 16:15 37.2 C 99 H 20 123/99 94 Code Status & VTE Plan Code Status Full code VTE Prophylaxis Plan VTE Prophylaxis will be ordered: Yes PG Care Time/CCT Total # of Minutes Spent Total Time Spent with Patient: Total time spent is greater than 50% in coordination of care (as documented) at patient's floor/unit and/or counseling patient: (1) Pneumonia Laterality: bilateral Lung location: unspecified part of lung Pneumonia type: due to unspecified organism Qualified Code(s): J18.9 - Pneumonia, unspecified organism (2) Sepsis Sepsis acute organ dysfunction status: unspecified Sepsis type: sepsis due to unspecified organism Qualified Code(s): A41.9 - Sepsis, unspecified organism (3) Leukocytosis Leukocytosis type: unspecified Qualified Code(s): D72.829 - Elevated white blood cell count, unspecified (4) Left rib fracture Encounter type: initial encounter Fracture type: closed Rib fracture type: single rib Qualified Code(s): S22.32XA - Fracture of one rib, left side, initial encounter for closed fracture
[2019-02-27] MEDS ORDERED: MAGNESIUM HYDROXIDE SUSP 30 ML UDC PO PRN (21:52)
[2019-02-27] MEDS ORDERED: ALUMINUM/MAGNESIUM SUSP 30 ML UDC PO PRN (21:52)
[2019-02-27] MEDS ORDERED: NALOXONE INTNAS SCH (21:52)
[2019-02-27] MEDS ORDERED: ZOLPIDEM TARTRATE 5 MG TAB PO PRN (21:52)
[2019-02-27 22:23] LABS: Basophils # (auto) 0.01 K/uL (0-0.2); Hemoglobin 13.9 g/dL (14.0-18.0); Immature Granulocytes # (auto) 0.08 K/uL (0.00-0.02); Immature Granulocytes % (auto) 0.4 %; Lymphocytes # (auto) 1.66 K/uL (1.2-3.4); Lymphocytes % (auto) 7.8 %; Mean Corpuscular Hemoglobin 30.8 pg (25-34); Mean Corpuscular Hgb Conc 34.8 g/dL (32-36); Mean Corpuscular Volume 88.5 fL (80-100); Mean Platelet Volume 9.4 fL (7.4-10.4); Monocytes # (auto) 0.87 K/uL (0.11-0.59); Monocytes % (auto) 4.1 %; Neutrophils # (auto) 18.69 K/uL (1.4-6.5); Neutrophils % (auto) 87.7 %; Platelet Count 177 K/uL (130-400); RDW Coefficient of Variation 14.8 % (11.5-14.5); RDW Standard Deviation 47.5 fL (36.4-46.3); Red Blood Count 4.52 M/uL (4.7-6.1); White Blood Count 21.31 K/uL (4.8-10.8)
[2019-02-27] MEDS: METHADONE HCL 10 MG TAB PO PRN (22:26)
[2019-02-27] MEDS: ALPRAZolam 0.5 MG TABLET PO PRN (22:26)
[2019-02-27] MEDS ORDERED: KETOROLAC 30 MG/ML VIAL IV ONE (22:38)
[2019-02-27 22:40] LABS: Albumin Level 3.4 gm/dl (3.4-5.0); BUN Creatinine Ratio 9.1 (10-20); Calcium 7.8 mg/dl (8.5-10.1); Est GFR (African American) 106.7; Est GFR (Non-African American) 92.1; Potassium 3.7 mmol/L (3.5-5.1)
[2019-02-27] MEDS: SODIUM CHLORIDE 0.9% 1000ML 1,000 ML IV SCH (22:43)
[2019-02-27 22:45] LABS: Globulin 3.3 gm/dl (2.5-4.0); Total Protein 6.7 gm/dl (6.4-8.2)
[2019-02-27] MEDS: ENOXAPARIN INJ 40 MG/0.4 ML SYR SQ SCH (22:56)
[2019-02-28] MEDS ORDERED: OXYCODONE HCL IR 5 MG TAB (IMMEDIATE RELEASE) PO STA (01:32)
[2019-02-28] MEDS: GABAPENTIN 100 MG CAP PO SCH ×4 (01:42→21:41)
[2019-02-28 04:39] LABS: Basophils # (auto) 0.02 K/uL (0-0.2); Basophils % (auto) 0.1 %; Eosinophils # (auto) 0.05 K/uL (0-0.5); Eosinophils % (auto) 0.3 %; Hematocrit (blood only) 35.4 % (42-52); Hemoglobin 12.4 g/dL (14.0-18.0); Immature Granulocytes # (auto) 0.04 K/uL (0.00-0.02); Immature Granulocytes % (auto) 0.2 %; Lymphocytes # (auto) 1.99 K/uL (1.2-3.4); Lymphocytes % (auto) 11.6 %; Mean Corpuscular Hemoglobin 31.2 pg (25-34); Mean Corpuscular Volume 88.9 fL (80-100); Mean Platelet Volume 9.3 fL (7.4-10.4); Monocytes % (auto) 4.7 %; Neutrophils % (auto) 83.1 %; Platelet Count 141 K/uL (130-400); RDW Coefficient of Variation 14.7 % (11.5-14.5); RDW Standard Deviation 48.1 fL (36.4-46.3); Red Blood Count 3.98 M/uL (4.7-6.1)
[2019-02-28 04:57] LABS: Albumin Level 3.1 gm/dl (3.4-5.0); BUN Creatinine Ratio 12.8 (10-20); Calcium 7.6 mg/dl (8.5-10.1); Creatinine Clr Calc Pharmacy 87.9 ml/min; Est GFR (African American) 115.6; Est GFR (Non-African American) 99.7; Potassium 3.4 mmol/L (3.5-5.1)
[2019-02-28 04:59] LABS: Albumin Globulin Ratio 1.1 (0.9-2); Bilirubin,Total 1.3 mg/dl (0.2-1); Globulin 2.9 gm/dl (2.5-4.0)
[2019-02-28] MEDS: cefTRIAXone SODIUM 2,000 MG in DEXTROSE 5% 50 ML IV SCH (07:45)
[2019-02-28] MEDS: ACETAMINOPHEN 325 MG TAB PO PRN ×2 (07:46→14:07)
[2019-02-28] MEDS: METHADONE HCL 10 MG TAB PO PRN ×4 (07:46→23:31)
[2019-02-28] MEDS: METHYLPHENIDATE HCL 10 MG TABLET PO PRN (07:46)
[2019-02-28] MEDS: ALPRAZolam 0.5 MG TABLET PO PRN ×3 (07:47→21:53)
[2019-02-28] MEDS: PANTOprazole 40 MG TAB PO SCH (07:47)
[2019-02-28] MEDS: ATORVASTATIN 10 MG TAB PO SCH (07:48)
[2019-02-28] MEDS: DOXYCYCLINE HYCLATE 100 MG in DEXTROSE 5% 100 ML IV SCH ×2 (08:48→21:42)
[2019-02-28] MEDS: OXYCODONE HCL IR 5 MG TAB (IMMEDIATE RELEASE) PO PRN ×2 (09:03→17:48)
[2019-02-28] MEDS: KETOROLAC TROMETHAMINE 15 MG/ML VIAL IV PRN ×2 (09:04→21:53)
[2019-02-28 09:58] LABS: Basophils # (auto) 0.02 K/uL (0-0.2); Basophils % (auto) 0.2 %; Eosinophils % (auto) 0.9 %; Hematocrit (blood only) 34.2 % (42-52); Hemoglobin 11.8 g/dL (14.0-18.0); Immature Granulocytes # (auto) 0.03 K/uL (0.00-0.02); Immature Granulocytes % (auto) 0.3 %; Lymphocytes # (auto) 1.02 K/uL (1.2-3.4); Lymphocytes % (auto) 8.8 %; Mean Corpuscular Hemoglobin 30.6 pg (25-34); Mean Corpuscular Hgb Conc 34.5 g/dL (32-36); Mean Corpuscular Volume 88.8 fL (80-100); Monocytes # (auto) 0.58 K/uL (0.11-0.59); Neutrophils # (auto) 9.85 K/uL (1.4-6.5); Neutrophils % (auto) 84.8 %; Platelet Count 128 K/uL (130-400); RDW Coefficient of Variation 14.7 % (11.5-14.5); RDW Standard Deviation 47.9 fL (36.4-46.3); Red Blood Count 3.85 M/uL (4.7-6.1)
[2019-02-28] MEDS: SODIUM CHLORIDE 0.9% 1000ML 1,000 ML IV SCH ×2 (14:02→21:55)
[2019-02-28 15:59] LABS: Basophils # (auto) 0.02 K/uL (0-0.2); Basophils % (auto) 0.2 %; Eosinophils % (auto) 1.9 %; Hematocrit (blood only) 35.2 % (42-52); Immature Granulocytes # (auto) 0.02 K/uL (0.00-0.02); Immature Granulocytes % (auto) 0.2 %; Lymphocytes # (auto) 1.09 K/uL (1.2-3.4); Lymphocytes % (auto) 10.6 %; Mean Corpuscular Hemoglobin 30.4 pg (25-34); Mean Corpuscular Hgb Conc 34.1 g/dL (32-36); Mean Corpuscular Volume 89.1 fL (80-100); Mean Platelet Volume 9.7 fL (7.4-10.4); Monocytes # (auto) 0.56 K/uL (0.11-0.59); Monocytes % (auto) 5.4 %; Neutrophils # (auto) 8.42 K/uL (1.4-6.5); Neutrophils % (auto) 81.7 %; Platelet Count 136 K/uL (130-400); RDW Coefficient of Variation 14.7 % (11.5-14.5); RDW Standard Deviation 48.3 fL (36.4-46.3); Red Blood Count 3.95 M/uL (4.7-6.1); White Blood Count 10.31 K/uL (4.8-10.8)
--- NOTE | 2019-02-28 16:06 | Hospitalist Progress Note ---
Date of Service February 28, 2019 Assessment & Plan (1) Sepsis: Continue admit to PCU on telemetry Vital signs every 4 hours Received Zosyn and vancomycin ceftriaxone and doxycycline in the ER. Trending down leukocytosis 21.31-->17.20-->11.60 Continue ceftriaxone and doxycycline IV for pneumonia CBC CMP daily. Continue with home medicine :gabapentin 100 mg TID ,alprazolam 0.5 mg tablet 3 times daily as needed for anxiety, methadone 10 mg tablet p.o. every 4 hr, Oxycodone 5 mg Q8 hr prn Methylphenidate 10 mg p.o. 3 times daily as needed, naloxone 4 mg nasal spray. Hold opioids if patient respiration is less than 12 and oxygenation less than 92. Would consider repeating chest x-ray or CT of the chest (after acute phase)for a small cluster of groundglass nodular opacities within the superior segment segment of the left lower lobe and right upper apex which was not seen on the chest x-rays before November 04, 2018. Appears at that point to be inflammatory Consult pain management DVT prophylaxis Lovenox 40 mg subcu daily Full code (2) Pneumonia: As the above Encourage incentive spirometry (3) Acidosis, lactic: See above, repeat lactic acid IV fluid hydration (4) Leukocytosis: See above (5) Left rib fracture: Fracture is nondisplaced, continue medical management (6) Chronic pain: See above.Patient at high risk of polypharmacy. Complains of chronic pain related to arthritis and cervical stenosis. Consulted pain management. Appreciate their recommendations Subjective Patient seen and examined at the bedside. Pt said he takes his pain medication regimen for 5 years. Patient agreed to decrease the dose of to half and to take it only for breakthrough pain since full dose make him dizzy and he is prone to falls. Patient continues to take his methadone [id number] as it is prescribed at home.Pt said he is orthopedic is Dr. Álvarez and he supposed to have surgery of his cervical spine. Patient could not recall when that supposed to take place. He reports that his cough is somewhat better. His appetite is slowly improving. Patient denies fever chills chest pain shortness of breath abdominal pain frequency urgency hematuria hemoptysis melena. Patient continues to complain of the left-sided chest wall pain due to recent nondisplaced fracture of the ribs. Review of Systems Review of Systems: All systems reviewed & are unremarkable except as noted in HPI & below Physical Exam Constitutional: WD/WN, vitals as above well developed Eyes: PERRL, conjunctivae normal, anicteric sclerae ENMT: external ear and nose normal, oropharynx normal Neck: trachea midline, no thyromegaly Respiratory: + dullness to percussion (Improving) and + cough Auscultation: + crackles (Improving), + wheezes (Improving) and + bronchovesicular breath sounds Cardiovascular: RRR, no murmur, no edema Gastrointestinal (Abdomen): normal bowel sounds, soft, nontender, no hepatosplenomegaly Musculoskeletal: no cyanosis or clubbing, extremities motor strength 5/5 Skin: + erythema (Lower extremities bilaterally) Neurologic: patellar DTR's 2+ bilat, sensation intact Psychiatric: A+Ox3, euthymic affect Lymphatic: no cervical or axillary lymphadenopathy Results & Data Vital Signs (Past 12 Hours) Vital Signs Temp Pulse Pulse Resp BP Pulse Ox 02/28/19 15:45 36.6 C 76 17 122/75 92 02/28/19 11:57 36.8 C 70 18 142/93 H 94 02/28/19 07:27 36.8 C 77 18 151/99 H 92 02/28/19 04:06 36.9 C 70 16 146/101 H 93 PG Care Time/CCT Total # of Minutes Spent Total Time Spent with Patient: Total time spent is greater than 50% in coordination of care (as documented) at patient's floor/unit and/or counseling patient: (1) Sepsis Sepsis acute organ dysfunction status: unspecified Sepsis type: sepsis due to unspecified organism Qualified Code(s): A41.9 - Sepsis, unspecified organism (2) Pneumonia Laterality: bilateral Lung location: unspecified part of lung Pneumonia type: due to unspecified organism Qualified Code(s): J18.9 - Pneumonia, unspecified organism (3) Leukocytosis Leukocytosis type: unspecified Qualified Code(s): D72.829 - Elevated white blood cell count, unspecified (4) Left rib fracture Encounter type: initial encounter Fracture type: closed Rib fracture type: single rib Qualified Code(s): S22.32XA - Fracture of one rib, left side, initial encounter for closed fracture
[2019-02-28] MEDS: POLYETHYLENE (MIRALAX) 17 GM PACK PO PRN (21:39)
[2019-02-28] MEDS: ENOXAPARIN INJ 40 MG/0.4 ML SYR SQ SCH (21:43)
[2019-02-28 22:16] LABS: Basophils # (auto) 0.01 K/uL (0-0.2); Basophils % (auto) 0.1 %; Eosinophils # (auto) 0.14 K/uL (0-0.5); Eosinophils % (auto) 1.7 %; Hematocrit (blood only) 37.2 % (42-52); Hemoglobin 12.8 g/dL (14.0-18.0); Immature Granulocytes # (auto) 0.01 K/uL (0.00-0.02); Immature Granulocytes % (auto) 0.1 %; Lymphocytes # (auto) 1.07 K/uL (1.2-3.4); Lymphocytes % (auto) 12.9 %; Mean Corpuscular Hemoglobin 30.8 pg (25-34); Mean Corpuscular Hgb Conc 34.4 g/dL (32-36); Mean Corpuscular Volume 89.4 fL (80-100); Mean Platelet Volume 10.3 fL (7.4-10.4); Monocytes # (auto) 0.48 K/uL (0.11-0.59); Monocytes % (auto) 5.8 %; Neutrophils # (auto) 6.61 K/uL (1.4-6.5); Neutrophils % (auto) 79.4 %; Platelet Count 137 K/uL (130-400); RDW Coefficient of Variation 14.6 % (11.5-14.5); Red Blood Count 4.16 M/uL (4.7-6.1); White Blood Count 8.32 K/uL (4.8-10.8)
[2019-03-01] MEDS: OXYCODONE HCL IR 5 MG TAB (IMMEDIATE RELEASE) PO PRN ×3 (01:41→19:21)
[2019-03-01] MEDS: KETOROLAC TROMETHAMINE 15 MG/ML VIAL IV PRN ×2 (06:08→23:56)
[2019-03-01] MEDS: METHADONE HCL 10 MG TAB PO PRN ×3 (06:08→21:10)
[2019-03-01 07:33] LABS: Albumin Level 2.9 gm/dl (3.4-5.0); BUN Creatinine Ratio 12.6 (10-20); Calcium 7.9 mg/dl (8.5-10.1); Creatinine Clr Calc Pharmacy 104.5 ml/min; Potassium 3.3 mmol/L (3.5-5.1)
[2019-03-01 07:44] LABS: Albumin Globulin Ratio 0.9 (0.9-2); Bilirubin,Total 0.8 mg/dl (0.2-1); Globulin 3.1 gm/dl (2.5-4.0)
[2019-03-01] MEDS: GABAPENTIN 100 MG CAP PO SCH ×3 (08:36→19:22)
[2019-03-01] MEDS: ATORVASTATIN 10 MG TAB PO SCH (08:36)
[2019-03-01] MEDS: POLYETHYLENE (MIRALAX) 17 GM PACK PO PRN (08:36)
[2019-03-01] MEDS: ACETAMINOPHEN 325 MG TAB PO PRN (08:37)
[2019-03-01] MEDS: PANTOprazole 40 MG TAB PO SCH (08:37)
[2019-03-01] MEDS: cefTRIAXone SODIUM 2,000 MG in DEXTROSE 5% 50 ML IV SCH (08:42)
[2019-03-01] MEDS ORDERED: ONDANSETRON 2 MG OD TAB PO PRN (09:37)
[2019-03-01] MEDS: LIDOCAINE 5% 1 PATCH TD SCH (09:55)
[2019-03-01] MEDS: DOXYCYCLINE HYCLATE 100 MG in DEXTROSE 5% 100 ML IV SCH ×2 (09:56→20:31)
[2019-03-01] MEDS: SODIUM CHLORIDE 0.9% 1000ML 1,000 ML IV SCH ×2 (13:19→21:11)
[2019-03-01] MEDS: ALPRAZolam 0.5 MG TABLET PO PRN (15:49)
--- NOTE | 2019-03-01 15:58 | Pain Management Consultation ---
Date of Consultation March 01, 2019 Assessment & Plan (1) Left rib fracture: 1. PDMP was checked on the patient and his verbalization of his medication regimen is consistent with his PDMP utilization. I do not see any discrepancies at this time. Recommend resumption of his chronic opiates which are methadone 10 mg 4 times daily and oxycodone 10 mg 3 times daily. 2. Recommend utilization of Lidoderm patch over rib fractures. 3. I spoke with Dr. Álvarez today in regards to potential cervical spine intervention. Patient should follow-up with him as an outpatient. Release of records was requested for lumbar and cervical spine MRIs which were performed at [facility]. 4. Recommend utilization of psychosocial rehabilitation counselor to assist with post discharge living situation and to allow for a safe post surgical intervention convalescent space. 5. Thank you for this consult please call with any questions. Encounter type: initial encounter Fracture type: closed Rib fracture type: single rib Qualified Code(s): S22.32XA - Fracture of one rib, left side, initial encounter for closed fracture (2) Degenerative cervical spinal stenosis: (3) Neuropathy: (4) Spinal stenosis: (5) Depression: History of Present Illness Attending Physician: Valerie Bonilla MD History of Present Illness 63-year-old male with long-standing history of cervical spinal stenosis and axial low back pain [place]. He reports he has been on stable dosing of methadone and oxycodone for at least 6 years and that his pain today is predominantly over his cervical spine with radiation into his arms ranging at 7 out of 10. Pain has escalated to 10 out of 10 during this admission characterized as sharp and shooting. He reports that his pain goal is 7 out of 10 and that most of his pain is the 8/10 range. The patient reports that he has been working with Dr. Álvarez from [facility] in regards to possible cervical spine intervention. Patient is not a candidate for epidura ls per patient due to significant cervical spinal stenosis. Patient reports that he has not had any side effects from his opiate or adjuvant medication regimen. He denies any bowel or bladder incontinence, footdrop, constipation or mental sedation. Patient does note that he has some discoordination of hand objects and weakness left greater than right upper extremity. He denies any dropping of items at this time. Allergies Allergy/AdvReac Type Severity Reaction Status Date / Time erythromycin base Allergy Intermediate Rash Verified 02/27/19 17:23 Home Medications Home Medications Medication Instructions Recorded Confirmed Type atorvastatin 10 mg PO QAM 10/19/18 02/27/19 History buspirone 15 mg PO TID PRN 10/19/18 02/27/19 History pantoprazole 40 mg PO QAM 10/19/18 02/27/19 History naloxone 4 mg/actuation nasal spray 1 sprays INTNAS Q2M #2 ea 02/01/19 02/27/19 Rx gabapentin 100 mg capsule 100 mg PO TID #90 cap 02/17/19 02/27/19 Rx alprazolam 0.5 mg tablet 0.5 mg PO TID PRN #90 tab 02/25/19 02/27/19 Rx methadone 10 mg tablet 10 mg PO Q4H PRN #112 tab 02/25/19 02/27/19 Rx methylphenidate 10 mg tablet 10 mg PO TID PRN #84 tab 02/25/19 02/27/19 Rx oxycodone 10 mg tablet 10 mg PO TID PRN #90 tab 02/25/19 02/27/19 Rx Patient History Medical History Anxiety (Acute) Arthritis (Acute) Degenerative cervical spinal stenosis (Acute) Hearing difficulty (Acute) Hyperlipidemia (Acute) Stomach ulcer (Resolved) Depression Spinal stenosis Neuropathy Bilateral lower leg cellulitis (Resolved) Surgical History History of hernia repair History of oral surgery Family History Mother Anxiety Depression Cardiac disorder Hypertension Diabetes Mesothelioma Father Mesothelioma Diabetes Brother Diabetes Other No significant family history Social History Preferred Language: Andorran Communication Ability: Effective White Goods Appliance Tech Required: No Beliefs That Will Affect Care: [facility]aritan Samaritan Beliefs: faith Current Living Situation: Alone Feels Safe at Home: No Is there a partner from a previous relationship who is making you feel unsafe now?: No Smoking Status: Former smoker Second Hand Exposure: No ; Hx Alcohol Use: No Hx Substance Use: No Physical Exam Physical Exam: Constitutional: Thin and cachectic Psych: Awake, alert, and oriented 3 with normal affect and mood. Recent memory appears grossly intact Eyes: Pupils are equally round and reactive to light with normal size pupils, eyelids appear normal Ear, nose, mouth, and throat: Moist nasal and oral membranes, lips and tongues appear normal, no external ear abnormalities are noted Neck: The trachea is midline without deviation and no thyromegaly is noted Respiratory: Normal respiratory effort without distress, no audible wheezes or rhonchi CV: Normal S1 and S2 Chest: Deferred GI/abdomen: Non-tender without guarding, soft Musculoskeletal: Head is normocephalic and atraumatic, gait was not observed Cervical: Lordotic curve: Normal Range of motion is decreased in all planes Tenderness: Moderately tender over the axial midline Facet provocation: Marginally positive bilaterally Hoffmans maneuver: Positive bilaterally Step-off injuries: None Strength: Strength is equal bilaterally with 4-4+ out of 5 strength in all planes left side is weaker than the right Sensation of upper extremities: Decreased sensation in nondermatomal pattern Deep tendon reflexes: Rated at 2+ in bilateral biceps, triceps, brachial radialis Myofascial spasm: No appreciable spasm. No discrete trigger points noted Lumbar: Lordotic curve: Normal Range of motion is slightly decreased with extension, flexion, side-bending, rotation Tenderness: Nontender over the axial midline Straight leg raise: Negative bilaterally Step-off injuries: None Strength: Strength is equal bilaterally with 4+ out of 5 strength in all planes Sensation of lower extremities: Decreased sensation in nondermatomal pattern Deep tendon reflexes: Rated at 1+ in bilateral L4 and S1 Myofascial spasm: No appreciable spasm. No discrete trigger points noted Pathologic reflexes noted: None Skin: No rashes, lesions, ulcers, or induration noted Neuro: No nystagmus noted, the tongue is midline, the patient is able to rotate their head bilaterally : Deferred Results Diagnostic Review MRI: study completed, results not available MRI Findings: Release of records was signed for lumbar and cervical MRIs which were performed at [facility] CT: reports reviewed, images reviewed and findings discussed with patient CT Findings: [facility], [place] [phone] CT Scan Report Patient: KR HUNT IIAdmit Date: 02/27/19 MR#: [id number]: [address] Acct ID:[id number]: [facility] Zip: [place] [id number] Age: 63Location: ED Sex: M Room/Bed: Att Phy: Diagnosis: FALL Lor Phy: Hernando Morelos, III, MDService Date: 02/27/19 Fam Phy: Interpreting Phy: Cash Santoro MD Admit Phy: Ordering Phy: Marvin Og M.D. cc: ~ CERVICAL SPINE CT CT DOSE: 1961.80 mGy.cm HISTORY: fall, head injury TECHNIQUE: Multiaxial CT images of the cervical spine were performed and reformatted in the sagittal and coronal plane without the use of contrast. A dose lowering technique was utilized adhering to the principles of ALARA. COMPARISON: None. FINDINGS: No fracture or subluxation. Prevertebral soft tissues and the C1-C2 interval are intact. Advanced degenerative changes seen throughout the majority of the cervical spine. IMPRESSION: No fractures within the cervical spine.
--- NOTE | 2019-03-01 17:24 | Medical Student H&P ---
Date of Service March 01, 2019 Assessment & Plan (1) Sepsis: Continue admit to PCU on telemetry Vital signs every 4 hours. CMP & CBC daily. Received Zosyn and vancomycin, ceftriaxone and doxycycline in the ER. Sepsis acute organ dysfunction status: unspecified Sepsis type: sepsis due to unspecified organism Qualified Code(s): A41.9 - Sepsis, unspecified organism (2) Pneumonia: Shortness of breath and cough have improved. Still coughing up black- tinged sputum, but less today than yesterday. Would consider repeating CXR or CT of chest after acute phase to compare findings from 02/27. Appears to be inflammatory. Continue ceftriaxone and doxycycline IV. Encourage incentive spirometry. Laterality: bilateral Lung location: unspecified part of lung Pneumonia type: due to unspecified organism Qualified Code(s): J18.9 - Pneumonia, unspecified organism (3) Acidosis, lactic: CMP & CBC daily. Repeat lactic acid and continue IV fluid hydration. (4) Leukocytosis: Downtrending since admission: 24.62K (02/27 at 1629) --> 21.31K (02/27 at 2214) --> 17.20K (02/28 at 0428) --> 11.60K (02/28 at 0950) --> 10.31K (02/28 at 1551) --> 8.32K (02/28 at 2159). Continue ceftriaxone and doxycycline IV for pneumonia. Leukocytosis type: unspecified Qualified Code(s): D72.829 - Elevated white blood cell count, unspecified (5) Left rib fracture: Fracture is nondisplaced, continue medical management. Patient does not endorse more pain today than yesterday. Use Lidoderm patch over rib fractures. Continue DVT prophylaxis: Lovenox 40 mg SQ daily. Full code. Encounter type: initial encounter Fracture type: closed Rib fracture type: single rib Qualified Code(s): S22.32XA - Fracture of one rib, left side, initial encounter for closed fracture (6) Chronic pain: Continue with home medicine :gabapentin 100 mg TID ,alprazolam 0.5 mg tablet 3 times daily as needed for anxiety, methadone 10 mg tablet p.o. every 4 hr, Oxycodone 5 mg Q8 hr prn Methylphenidate 10 mg p.o. 3 times daily as needed, naloxone 4 mg nasal spray. Hold opioids if patient respiration is less than 12 and oxygenation less than 92. Patient at high risk of polypharmacy. Patient mentions baseline pain being at a 6 on his medications and at an 8-9 without his medication. He verbalizes that he is "very uncomfortable". Derivation of pain comes from arthritis and spinal stenosis. Pain radiates down both legs, with more pain being in the right vs. the left. Patient also endorses R leg numbness, attributable to his history of neuropathy. Consulted pain management. Appreciate their recommendations. History of Present Illness Chief Complaint: Falls Primary Care Provider: Hernando Morelos MD Patient is a 63 y/o male with a past medical history of chronic pain, anxiety, depression, arthritis, spinal stenosis, neuropathy, and hyperlipidemia who presented to the [facility] ER on February 27 after sustaining falls within his home. Chest x-ray showed healing left anterior fourth and fifth rib fracture, focal deformity within the left anterior sixth rib constant with an age-indeterminant fracture, and a small cluster of groundglass nodular opacities within the superior left lower lobe and right lung apex. Allergies Allergy/AdvReac Type Severity Reaction Status Date / Time erythromycin base Allergy Intermediate Rash Verified 02/27/19 17:23 Home Medications Home Medications Medication Instructions Recorded Confirmed Type atorvastatin 10 mg PO QAM 10/19/18 02/27/19 History buspirone 15 mg PO TID PRN 10/19/18 02/27/19 History pantoprazole 40 mg PO QAM 10/19/18 02/27/19 History naloxone 4 mg/actuation nasal spray 1 sprays INTNAS Q2M #2 ea 02/01/19 02/27/19 Rx gabapentin 100 mg capsule 100 mg PO TID #90 cap 02/17/19 02/27/19 Rx alprazolam 0.5 mg tablet 0.5 mg PO TID PRN #90 tab 02/25/19 02/27/19 Rx methadone 10 mg tablet 10 mg PO Q4H PRN #112 tab 02/25/19 02/27/19 Rx methylphenidate 10 mg tablet 10 mg PO TID PRN #84 tab 02/25/19 02/27/19 Rx oxycodone 10 mg tablet 10 mg PO TID PRN #90 tab 02/25/19 02/27/19 Rx Past Med/Surg History Medical History Anxiety (Acute) Arthritis (Acute) Degenerative cervical spinal stenosis (Acute) Hearing difficulty (Acute) Hyperlipidemia (Acute) Stomach ulcer (Resolved) Depression Spinal stenosis Neuropathy Bilateral lower leg cellulitis (Resolved) Surgical History History of hernia repair History of oral surgery Family History Mother Anxiety Depression Cardiac disorder Hypertension Diabetes Mesothelioma Father Mesothelioma Diabetes Brother Diabetes Other No significant family history Social History Preferred Language: Ch[place] Communication Ability: Effective 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 Beliefs That Will Affect Care: Yazdanism Yazdanism Beliefs: bahai Current Living Situation: Alone Feels Safe at Home: No Is there a partner from a previous relationship who is making you feel unsafe now?: No Smoking Status: Former smoker Second Hand Exposure: No ; Hx Alcohol Use: No Hx Substance Use: No Review of Systems + body aches; no fever and no chills + cough, + change in sputum ("black") and + dyspnea no palpitations and no edema no abdominal pain + urinary frequency, + urinary incontinence and + urinary urgency; no dysuria + back pain, + neck pain, + joint pain and + muscle weakness + rash (proximal to gluteal fold) + numbness (right lower extremity) and + radiating pain + panic attacks + polyuria Physical Exam Constitutional: + acute distress, + ill appearing, + cachectic, + frail appearing and + in distress (in moderate distress) Eyes: PERRL, conjunctivae normal, anicteric sclerae + anicteric sclerae ENMT: Mouth: + poor dentition Respiratory: normal respiratory effort, + dullness to percussion, + tactile fremitus, + cough and able to speak in complete sentences Auscultation: no crackles, no wheezes and no egophony Cardiovascular: RRR, no murmur, no edema Heart Sounds: normal S1 and normal S2 Vessels: no JVD and no carotid bruit Musculoskeletal: Head/Neck/Chest: + head abnormal to inspection, normocephalic and head atraumatic Extremities: no cyanosis and no clubbing Skin: + rash (right cheek near gluteal fold) and + dry skin Psychiatric: Orientation: alert and oriented x 3 Eye Contact: good eye contact Speech: normal rate/rhythm/volume of speech Affect: + depressed affect Results & Data Vital Signs (Past 12 Hours) Vital Signs Temp Pulse Pulse Pulse Resp BP BP 03/01/19 16:06 36.8 C 63 15 125/87 03/01/19 11:56 64 03/01/19 11:26 36.8 C 80 18 98/66 L 03/01/19 06:55 36.8 C 68 19 131/89 03/01/19 06:00 72 154/88 H Pulse Ox 03/01/19 16:06 91 03/01/19 11:56 03/01/19 11:26 92 03/01/19 06:55 95 03/01/19 06:00 97 Code Status & VTE Plan VTE Prophylaxis Plan VTE Prophylaxis will be ordered: Yes Supervising Attestation The above note has been placed and history and physical format by mistake, Please ignore current note, as a daily progress note has been generated instead.
--- NOTE | 2019-03-01 18:00 | Medical Student Progress Note ---
Date of Service March 01, 2019 Assessment & Plan (1) Sepsis: Continue admit to PCU on telemetry Vital signs every 4 hours. CMP & CBC daily. Received Zosyn and vancomycin, ceftriaxone and doxycycline in the ER. Sepsis acute organ dysfunction status: unspecified Sepsis type: sepsis due to unspecified organism Qualified Code(s): A41.9 - Sepsis, unspecified organism (2) Pneumonia: Shortness of breath and cough have improved. Still coughing up black- tinged sputum, but less today than yesterday. Would consider repeating CXR or CT of chest after acute phase to compare findings from 02/27. Appears to be inflammatory. Continue ceftriaxone and doxycycline IV. Encourage incentive spirometry. Laterality: bilateral Lung location: unspecified part of lung Pneumonia type: due to unspecified organism Qualified Code(s): J18.9 - Pneumonia, unspecified organism (3) Acidosis, lactic: CMP & CBC daily. Repeat lactic acid and continue IV fluid hydration. (4) Leukocytosis: Downtrending since admission: 24.62K (02/27 at 1629) --> 21.31K (02/27 at 2214) --> 17.20K (02/28 at 0428) --> 11.60K (02/28 at 0950) --> 10.31K (02/28 at 1551) --> 8.32K (02/28 at 2159). Continue ceftriaxone and doxycycline IV for pneumonia. Leukocytosis type: unspecified Qualified Code(s): D72.829 - Elevated white blood cell count, unspecified (5) Left rib fracture: Fracture is nondisplaced, continue medical management. Patient does not endorse more pain today than yesterday. Use Lidoderm patch over rib fractures. Continue DVT prophylaxis: Lovenox 40 mg SQ daily. Full code. Encounter type: initial encounter Fracture type: closed Rib fracture type: single rib Qualified Code(s): S22.32XA - Fracture of one rib, left side, initial encounter for closed fracture (6) Chronic pain: Continue with home medicine :gabapentin 100 mg TID ,alprazolam 0.5 mg tablet 3 times daily as needed for anxiety, methadone 10 mg tablet p.o. every 4 hr, Oxycodone 5 mg Q8 hr prn Methylphenidate 10 mg p.o. 3 times daily as needed, naloxone 4 mg nasal spray. Hold opioids if patient respiration is less than 12 and oxygenation less than 92. Patient at high risk of polypharmacy. Patient mentions baseline pain being at a 6 on his medications and at an 8-9 without his medication. He verbalizes that he is "very uncomfortable". Derivation of pain comes from arthritis and spinal stenosis. Pain radiates down both legs, with more pain being in the right vs. the left. Patient also endorses R leg numbness, attributable to his history of neuropathy. Consulted pain management. Appreciate their recommendations. Subjective Patient is a 63 y/o male with a past medical history of chronic pain, anxiety, depression, arthritis, spinal stenosis, neuropathy, and hyperlipidemia who presented to the [facility] ER on February 27 after sustaining falls within his home. Chest x-ray showed healing left anterior fourth and fifth rib fracture, focal deformity within the left anterior sixth rib constant with an age-indeterminant fracture, and a small cluster of groundglass nodular opacities within the superior left lower lobe and right lung apex. Physical Exam Constitutional: + acute distress, + ill appearing, + cachectic, + frail appearing and + in distress (in moderate distress) Eyes: PERRL, conjunctivae normal, anicteric sclerae + anicteric sclerae ENMT: Mouth: + poor dentition Respiratory: normal respiratory effort, + dullness to percussion, + tactile fremitus, + cough and able to speak in complete sentences Auscultation: no crackles, no wheezes and no egophony Cardiovascular: RRR, no murmur, no edema Heart Sounds: normal S1 and normal S2 Vessels: no JVD and no carotid bruit Musculoskeletal: Head/Neck/Chest: + head abnormal to inspection, normocephalic and head atraumatic Extremities: no cyanosis and no clubbing Skin: + rash (right cheek near gluteal fold) and + dry skin Psychiatric: Orientation: alert and oriented x 3 Eye Contact: good eye contact Speech: normal rate/rhythm/volume of speech Affect: + depressed affect Results & Data Medications Administered Acetaminophen (Tylenol) 650 mg PO Q4H PRN PRN Reason: Pain or Fever Stop: 03/29/19 21:51 Last Admin: 03/01/19 08:37 Dose: 650 mg Documented by: [id number] Admin: 02/28/19 14:07 Dose: 650 mg Documented by: [id number] Admin: 02/28/19 07:46 Dose: 650 mg Documented by: [id number] Hydrox/Mg Hydrox/Simethicone (Maalox) 15 ml PO Q4H PRN PRN Reason: Dyspepsia Stop: 03/29/19 21:51 Last Admin: 02/28/19 16:09 Dose: 15 ml Documented by: [id number] Alprazolam (Xanax) 0.5 mg PO TID PRN PRN Reason: anxiety Stop: 03/29/19 21:51 Last Admin: 03/01/19 15:49 Dose: 0.5 mg Documented by: [id number] Admin: 02/28/19 21:53 Dose: 0.5 mg Documented by: [id number] Admin: 02/28/19 14:07 Dose: 0.5 mg Documented by: [id number] Admin: 02/28/19 07:47 Dose: 0.5 mg Documented by: [id number] Admin: 02/27/19 22:26 Dose: 0.5 mg Documented by: [id number] Atorvastatin Calcium (Lipitor) 10 mg PO QAM [facility] Stop: 03/30/19 08:59 Last Admin: 03/01/19 08:36 Dose: 10 mg Documented by: [id number] Admin: 02/28/19 07:48 Dose: 10 mg Documented by: [id number] Enoxaparin Sodium (Lovenox) 40 mg SQ Q24H [facility] Stop: 03/29/19 21:59 Last Admin: 02/28/19 21:43 Dose: 40 mg Documented by: [id number] Admin: 02/27/19 22:56 Dose: 40 mg Documented by: [id number] Gabapentin (Neurontin) 200 mg PO TID [facility] Stop: 03/31/19 13:59 Last Admin: 03/01/19 13:16 Dose: 200 mg Documented by: [id number] Sodium Chloride (Nss 1000ml) 1,000 mls @ 80 mls/hr IV .[id number] [facility] Stop: 03/29/19 21:51 Last Admin: 03/01/19 13:19 Dose: 80 mls/hr Documented by: [id number] Infusion: 03/01/19 10:25 Dose: 80 mls/hr Documented by: [id number] Admin: 02/28/19 21:55 Dose: 80 mls/hr Documented by: [id number] Infusion: 02/28/19 21:55 Dose: 80 mls/hr Documented by: [id number] Admin: 02/28/19 14:02 Dose: 80 mls/hr Documented by: [id number] Infusion: 02/28/19 14:02 Dose: 80 mls/hr Documented by: [id number] Infusion: 02/28/19 11:16 Dose: 80 mls/hr Documented by: [id number] Infusion: 02/28/19 07:48 Dose: 0 mls/hr Documented by: [id number] Admin: 02/27/19 22:43 Dose: 80 mls/hr Documented by: [id number] Ceftriaxone Sodium 2,000 mg/ (Dextrose) 70 mls @ 100 mls/hr IV Q24H [facility]; Protocol Stop: 03/02/19 07:59 Last Infusion: 03/01/19 10:28 Dose: 0 mls/hr Documented by: [id number] Admin: 03/01/19 08:42 Dose: 100 mls/hr Documented by: [id number] Infusion: 02/28/19 08:48 Dose: 0 mls/hr Documented by: [id number] Admin: 02/28/19 07:45 Dose: 100 mls/hr Documented by: [id number] Doxycycline Hyclate 100 mg/ (Dextrose) 110 mls @ 50 mls/hr IV Q12H [facility] Stop: 03/02/19 08:59 Last Infusion: 03/01/19 13:15 Dose: 0 mls/hr Documented by: [id number] Admin: 03/01/19 09:56 Dose: 50 mls/hr Documented by: [id number] Infusion: 02/28/19 23:55 Dose: 0 mls/hr Documented by: [id number] Admin: 02/28/19 21:42 Dose: 50 mls/hr Documented by: [id number] Infusion: 02/28/19 11:16 Dose: 0 mls/hr Documented by: [id number] Admin: 02/28/19 08:48 Dose: 50 mls/hr Documented by: [id number] Ketorolac Tromethamine (Toradol) 15 mg IV Q6H PRN PRN Reason: Pain Stop: 03/05/19 08:46 Last Admin: 03/01/19 06:08 Dose: 15 mg Documented by: [id number] Admin: 02/28/19 21:53 Dose: 15 mg Documented by: [id number] Admin: 02/28/19 09:04 Dose: 15 mg Documented by: [id number] Lidocaine (Lidoderm 5%) [address] [facility] Stop: 03/31/19 09:59 Last Admin: 03/01/19 09:55 Dose: 1 patch Documented by: [id number] Methadone HCl (Dolophine) 10 mg PO Q6H PRN PRN Reason: pain Stop: 03/13/19 21:51 Last Admin: 03/01/19 13:16 Dose: 10 mg Documented by: [id number] Methylphenidate HCl (Ritalin) 10 mg PO TID PRN PRN Reason: LETHARGY Stop: 03/13/19 21:51 Last Admin: 02/28/19 07:46 Dose: 10 mg Documented by: [id number] Ondansetron HCl (Zofran Odt) 2 mg PO Q4H PRN PRN Reason: Nausea Stop: 03/31/19 09:36 Last Admin: 03/01/19 09:55 Dose: 2 mg Documented by: [id number] Pantoprazole Sodium (Protonix) [address] [facility] Stop: 03/30/19 08:59 Last Admin: 03/01/19 08:37 Dose: 40 mg Documented by: [id number] Admin: 02/28/19 07:47 Dose: 40 mg Documented by: [id number] Polyethylene Glycol (Miralax Powder Packet) 17 gm PO DAILY PRN PRN Reason: Constipation Stop: 03/29/19 21:51 Last Admin: 03/01/19 08:36 Dose: 17 gm Documented by: [id number] Admin: 02/28/19 21:39 Dose: 17 gm Documented by: [id number] Supervising Attestation I personally interviewed and examined the patient. I agree with history of present illness and physical exam mentioned above, I al so performed my own history taking and examination. Past medical history and review of system has been obtained by myself I reviewed all pertinent labs and studies Reviewed current medications I discussed and formulated of the assessment and plan mentioned above. Please refer to the Summary mentioned below. Subjective Patient still complaining of generalized body aches and pains Also complains of generalized weakness and constipation. Objective Vitals reviewed as above General Appearance: Frail elderly man with moderate acute distress, appears to be cachectic Eyes: normal Sclerae, extraocular muscle intact ENT: hearing grossly normal Neck: supple Respiratory/Chest: Decreased air entry bilaterally, poor inspiratory effort, scattered rhonchi, Cardiovascular: regular rate, rhythm, no murmur Abdomen: non tender, soft, no masses Extremities: no edema musculoskeletal: no significant swelling or inflammation in any joint Neurologic/Psychiatric: Awake alert oriented times place and person moves all extremities sensation intact cranial nerves II-12 appear to be intact Skin: normal color, warm/dry, no rash Assessment Sepsis present on admission secondary to below Bilateral multifocal pneumonia, community-acquired Productive cough secondary to above Improved on current antibiotic regimen, with ceftriaxone/doxycycline Received Zosyn/Vanco in ED x1 Will add lactobacillus to prevent C. difficile Generalized body ache/pains Deconditioning/cachexia Consult pain management appreciated, Dr. Servin recommendation will be followed We will add nutritional supplement Healing multiple rib fracture, likely related to fall Likely osteoporosis due to fractures from ground-level fall empiric vitamin D supplement will need osteoporosis screen as an outpatient Valerie Bonilla MD, [facility]
[2019-03-01] MEDS: ENOXAPARIN INJ 40 MG/0.4 ML SYR SQ SCH (21:12)
[2019-03-02] MEDS: KETOROLAC TROMETHAMINE 15 MG/ML VIAL IV PRN ×3 (06:15→23:25)
[2019-03-02 06:25] LABS: Hematocrit (blood only) 37.6 % (42-52); Hemoglobin 12.5 g/dL (14.0-18.0); Mean Corpuscular Hgb Conc 33.2 g/dL (32-36); Mean Corpuscular Volume 90.2 fL (80-100); Mean Platelet Volume 10.1 fL (7.4-10.4); Platelet Count 155 K/uL (130-400); RDW Coefficient of Variation 14.6 % (11.5-14.5); RDW Standard Deviation 47.6 fL (36.4-46.3); Red Blood Count 4.17 M/uL (4.7-6.1); White Blood Count 6.01 K/uL (4.8-10.8)
[2019-03-02] MEDS: METHADONE HCL 10 MG TAB PO PRN ×3 (06:27→19:41)
[2019-03-02 07:02] LABS: Albumin Level 3.4 gm/dl (3.4-5.0); BUN Creatinine Ratio 14.3 (10-20); Calcium 8.1 mg/dl (8.5-10.1); Creatinine Clr Calc Pharmacy 87.9 ml/min; Est GFR (African American) 115.6; Est GFR (Non-African American) 99.7; Magnesium 2.1 mg/dl (1.8-2.4); Potassium 3.7 mmol/L (3.5-5.1)
[2019-03-02 07:13] LABS: Albumin Globulin Ratio 1.1 (0.9-2); Bilirubin,Total 0.7 mg/dl (0.2-1); Globulin 3.2 gm/dl (2.5-4.0); Thyroid Stimulating Hormone 1.18 uIu/ml (0.300-4.500); Total Protein 6.6 gm/dl (6.4-8.2)
[2019-03-02] MEDS: LACTOBACILLUS ACIDOPHILUS (FLORANEX) TAB PO SCH ×3 (07:26→16:29)
[2019-03-02] MEDS: LIDOCAINE 5% 1 PATCH TD SCH (07:27)
[2019-03-02] MEDS: GABAPENTIN 100 MG CAP PO SCH ×3 (07:27→20:45)
[2019-03-02] MEDS: PANTOprazole 40 MG TAB PO SCH (07:28)
[2019-03-02] MEDS: ATORVASTATIN 10 MG TAB PO SCH (07:28)
[2019-03-02] MEDS: CHOLECALCIFEROL 1,000 UNITS TAB PO SCH (07:28)
[2019-03-02] MEDS: ALPRAZolam 0.5 MG TABLET PO PRN ×2 (07:59→13:58)
[2019-03-02] MEDS: METHYLPHENIDATE HCL 10 MG TABLET PO PRN (07:59)
[2019-03-02] MEDS: OXYCODONE HCL IR 5 MG TAB (IMMEDIATE RELEASE) PO PRN ×2 (07:59→16:35)
[2019-03-02] MEDS: POLYETHYLENE (MIRALAX) 17 GM PACK PO PRN (08:00)
[2019-03-02] MEDS: ACETAMINOPHEN 325 MG TAB PO PRN (12:35)
--- NOTE | 2019-03-02 14:17 | Med Student Discharge Summary ---
Date of Service March 03, 2019 I personally interviewed and examined the patient. I agree with below mentioned hospital course and physical exam mentioned above, I also performed my own history taking and examination. Past medical history and review of system has been obtained by myself I reviewed all pertinent labs and studies Reviewed current medications I discussed and formulated of the assessment and plan mentioned above. Please refer to the Summary mentioned below. 63-year-old man who [place] the [facility] with significant past medical history of chronic pain/lower back pain multiple medical problems including dyslipidemia and chronic opioid dependence. He presented to the hospital after sustaining multiple falls, initial imaging showed fifth and sixth rib fractures with multifocal bilateral pneumonia. Patient also was found to have sepsis/leukocytosis and was started on vancomycin, ceftriaxone and doxycycline. Patient leukocytosis significantly improved, he received vitamin D for his presumptive vitamin D deficiency and osteoporosis, received physical therapy and Occupational Therapy that [facility], his shortness of breath improved slowly, we placed a Lidoderm patch on his chest wall, recommended pretty nutritional supplement for his malnutrition, recommended tapering down his methadone slowly and referral to pain management. Today patient Appears to be within acceptable medical stability for discharge, his oxygen saturation is normal in room air. Final discharge diagnoses Sepsis present on admission secondary to below multifocal bilateral multilobar pneumonia Multiple falls Likely osteoporosis to due to fracture sustained from ground-level fall Moderate severe caloric malnutrition Chronic lower back pain/chronic opioid dependence General frail elderly man appears to be not in acute distress HEENT: Atraumatic , normocephalic /no jaundice /no pallor /anicteric /no dry mucous membrane /normal external ear inspection Neck: Supple /no swelling /central trach Heart: S1/S2 normal/regular rate and rhythm/no gallop /no rub /no murmur Lungs: Decreased air entry bilaterally, decreased chest wall expansion, scattered rhonchi Abdomen: Soft/nontender/no guarding/no rebound/no organomegaly/no pulsatile mass Musculoskeletal: Lower back and joint tenderness Neuro exam: Awake alert oriented 3/cranial nerves II through XII appear to be intact/sensation intact/moves all extremities/no abnormal movements Psychiatric evaluation: No depressed mood/normal affect Skin: No rash on exposed skin area/no erythema Extremity: Normal pulse/no pitting edema/no clubbing or cyanosis Valerie Bonilla MD, [facility] hospitalist group Discharge note was initiated yesterday, but the patient did not leave the hospital as he was waiting for authorization, discharge note was finalized today and addendum as needed Discharge date is 03/03/2019 Date of service is 03/03/2019 Admission HPI Per Admitting Provider Patient is a 63 y/o male with a past medical history of chronic pain, anxiety, depression, arthritis, spinal stenosis, neuropathy, and hyperlipidemia who presented to the [facility] ER on February 27 after sustaining falls within his home. Chest x-ray showed healing left anterior fourth and fifth rib fracture, focal deformity within the left anterior sixth rib constant with an age-indeterminant fracture, and a small cluster of groundglass nodular opacities within the superior left lower lobe and right lung apex. 03/03: He speaks about improvement with his shortness of breath and productive cough. He states, "I don't feel that stuff in me anymore." Patient had a fecal incontinent episode in his sleep and has passed a "medium sized loose stool" last evening. Mood and affect appear to be more euthymic. Patient is pleased about discharge to a facility where he can be cared for and interact with others. Admission Exam (Per Admitting) Constitutional + ill appearing, + cachectic and + frail appearing; no acute distress Eyes PERRL, conjunctivae normal, anicteric sclerae EOM intact bilaterally; normal light reflex, no fundoscopic abnormality and no papilledema ENMT Ears: + hearing impairment ((not apparent)) Mouth: + poor dentition; no tongue abnormality Neck trachea midline; no anterior neck swelling Respiratory normal respiratory effort, + tactile fremitus and able to speak in complete sentences Auscultation: + diminished lung sounds and + rhonchi; no wheezes and no egophony Cardiovascular RRR, no murmur, no edema Heart Sounds: normal S1 and normal S2; no click, no gallop and no cardiac rub Vessels: no JVD and no carotid bruit Extremities: normal capillary refill and + calf tenderness; no pedal edema Gastrointestinal (Abdomen) normal bowel sounds, soft, nontender, no hepatosplenomegaly Inspection/Auscultation: abdomen normal to inspection, normal bowel sounds and + abdominal surgical scar; no abdominal edema Percussion/Palpation: abdomen soft; abdomen nontender Musculoskeletal Head/Neck/Chest: normocephalic and head atraumatic Extremities: no cyanosis and no clubbing Skin + dry skin and + ecchymosis (chin, small area in abdominal left lower quadrant, bilateral anterior tib) Neurologic CN's II-XI intact bilaterally (appear to be) and moves all extremities; no focal motor deficits Psychiatric Orientation: alert and oriented x 3 Eye Contact: good eye contact Speech: normal rate/rhythm/volume of speech Affect: euthymic affect Discharge Data Consultations 02/27/19 18:39 ED Decision to Admit Stat 02/27/19 22:31 Consult Pain Management Routine 02/28/19 13:23 Consult Case Management - Discharge Planning Routine Hospital Course (1) Sepsis: Problem resolved. Discharge with cefnidir (300 mg BID) and doxycycline (100 mg BID) for 4 days for pneumonia. (2) Pneumonia: Shortness of breath has improved since 03/01. No longer coughing up blood- tinged sputum. Discharge with cefnidir (300 mg BID) and doxycycline (100 mg BID) for 4 days. (3) Acidosis, lactic: Problem resolved. (4) Leukocytosis: Downtrending since admission: 24.62K (02/27 at 1629) --> 21.31K (02/27 at 2214) --> 17.20K (02/28 at 0428) --> 11.60K (02/28 at 0950) --> 10.31K (02/28 at 1551) --> 8.32K (02/28 at 2159) --> 6.01K (03/02 at 0602). Discharge with cefnidir (300 mg BID) and doxycycline (100 mg BID) for 4 more days for pneumonia. (5) Left rib fracture: Fracture is nondisplaced. Patient endorses Lidoderm patch over rib fractures is helping with pain. Continue pain management post-discharge and continue to place Lidoderm patch over the injured area daily. Discharge with Lovenox 40 mg once a day. (6) Chronic pain: Patient has a history of cervical spinal stenosis, arthritis, and neuropathy. Patient mentions baseline pain being at a 6 on his medications (see Opioid Dependence below) and at an 8-9 without his medication. Today, he rates his pain at a 6-7. He still speak about pain radiating down both legs, with more pain being in the right vs. the left. Derivation likely from spinal stenosis and history of neuropathy. Patient also endorses R leg and foot and bilateral finger numbness, attributable to his history of neuropathy. Consider seeing outpatient neurology for further testing and management advising. Consulted pain management regarding medications. Appreciate their recommendations. (7) Bradycardia, sinus: Patient has sinus bradycardia (40s-60s) at night, likely secondary to obstructive sleep apnea. Recommending outpatient sleep study. (8) Opioid dependence: Patient has history of spinal stenosis, neuropathy, and DJD. Medications include gabapentin 100 mg TID, alprazolam 0.5 mg tablet 3 times daily as needed for anxiety, methadone 10 mg tablet p.o. every 6 hr, Oxycodone 5 mg Q8 hr prn, Methylphenidate 10 mg p.o. 3 times daily as needed, naloxone 4 mg nasal spray. Patient at risk for polypharmacy. Advised via pain management to continue taking home medications. Follow-up with prescribing physician post discharge. (9) Protein malnutrition: Patient appears cachectic and frail. TSH level is normal, however patient has slight hypocalcemia and low total protein. Continue Vitamin D supplement and nutritional supplement along with soft foods post-discharge. (10) Anxiety and depression: Patient has a history of both anxiety and depression, for which he takes Alprazolam 0.5 mg PO TID PRN. This appears to be exacerbated/worsened by his current living situation and isolation from others. Continue taking Alprazolam as prescribed and follow-up with prescribing physician post-discharge. Discharge Plan Discharge Items Patient Disposition: Transfer Alf Fac Reason For Visit: BILATERAL PNEUMONIA, FREQUENT FALLS, POLYPHARMACY Discharge Diagnosis: Sepsis present on admission secondary to below Bilateral multifocal community-acquired pneumonia Lactic acidosis secondary to above, resolved Multiple left ribs fracture, nondisplaced Likely osteoporosis due to fracture sustained from ground-level fall Chronic lower back pain/DJD Chronic opioid dependence Moderate protein/caloric malnutrition Generalized weakness and severe deconditioning Discharge Goals: Decrease discomfort, Improve disease control and Improve function Activity: Resume your previous activity Activity Comment: Fall precautions, need physical therapy/Occupational Therapy Lifting: Gradually increase as tolerated and No more than 5 pounds Bathing: No limitations Bathing Comment: With supervision and fall precaution Exercise/Sports: Gradually increase as tolerated Weightbearing: Full weightbearing Non-emergency contact: Primary Care Provider Call non-emergency contact if: you have any medication questions and your pain is not controlled Follow-up/Referrals: Hernando Morelos III, MD [Primary Care Provider] - Diet: Regular Addtl Provider Instructions: Very gradual and slow taper of your pain medications/opioid Nutritional supplement, Ensure plus twice a day Encourage adequate oral intake Physical therapy/Occupational Therapy Consider neurologic evaluation as an outpatient if no improvement Patient needs to follow-up as soon as possible with pain management to refill all his pain medications and to gradually taper them down Continue Lovenox for DVT prophylaxis until the patient gains enough mobility to prevent DVT, will leave it up to the discretion of the supervising physician and staff Prescriptions: New acetaminophen [Mapap (acetaminophen)] 325 mg Tablet 650 mg PO Q6H PRN (Reason: Pain, Moderate) Qty: 15 RF: 0 oxycodone 5 mg Tablet 10 mg PO Q8H PRN (Reason: Pain, Severe) Qty: 30 RF: 0 enoxaparin 40 mg/0.4 mL Syringe 40 mg subcut Q24H Qty: 10 RF: 0 MAG-AL 200-200 mg/5 mL Suspension 15 ml PO 5XD PRN (Reason: Dyspepsia) Qty: 100 RF: 0 polyethylene glycol 3350 [Miralax] 17 gram Powder In Packet 17 g PO DAILY Qty: 30 RF: 3 lidocaine 5 % Adhesive Patch,Medicated 1 patch transdermal QAM Qty: 30 RF: 0 cholecalciferol (vitamin D3) [Vitamin D3] 1,000 unit (25 mcg) Tablet 1,000 unit PO QAM Qty: 30 RF: 0 Lactobacillus acidoph-L.bulgar [Floranex] 1 million cell Tablet 4 tab PO TIDM 30 Days Qty: 60 RF: 0 Remove Lidoderm Patch 1 ea N/A DAILY@2100 Qty: 30 RF: 0 cefdinir 300 mg capsule 300 mg PO BID 4 Days Qty: 8 RF: 0 doxycycline hyclate 100 mg capsule 100 mg PO BID 4 Days Qty: 8 RF: 0 sennosides-docusate sodium [Senna-S] 8.6-50 mg tablet 1 tab PO BID Qty: 60 RF: 0 bisacodyl 10 mg suppository 10 mg TN Q72H PRN (Reason: constipation) Qty: 16 RF: 0 Continued Narcan 4 mg/actuation spray,non-aerosol 1 sprays INTNAS Q2M Qty: 2 RF: 5 atorvastatin 10 mg tablet 10 mg PO QAM RF: 0 pantoprazole 40 mg tablet,delayed release (DR/EC) 40 mg PO QAM RF: 0 buspirone 15 mg tablet 15 mg PO TID PRN (Reason: Panic Attack/Anxiety) RF: 0 alprazolam 0.5 mg tablet 0.5 mg PO TID PRN (Reason: anxiety) Qty: 15 RF: 0 gabapentin 100 mg capsule 100 mg PO TID Qty: 15 RF: 0 Changed methylphenidate HCl 10 mg tablet 10 mg PO DAILY Qty: 12 RF: 0 methadone 10 mg tablet 10 mg PO Q12H PRN (Reason: Pain, Severe) Qty: 12 RF: 0 Discontinued oxycodone 10 mg tablet 10 mg PO TID PRN (Reason: pain) Qty: 90 RF: 0 Stand-Alone Forms: [facility] Discharge Orders: Discharge Order (Routine); Ordered 03/03/19 Ordered By: Valerie Bonilla Skilled Items Patient informed of condition?: Yes DNR: No Discharge Level of Care: Skilled Communicable Disease: No Discharge Prognosis: Improving Admission Data Admit Date/Time: 02/27/19 20:19 Attending Provider: Valerie French Admit Provider: Raoul Arnett Primary Care Provider: Hernando Morelos III Other Providers: Raoul Arnett ; Tae Elliott Service: Telemetry Other Interventions: Discharge Summary Assessment (RN) Last Done: 03/03/19 16:30 DC Date/Time DO NOT enter until pt leaves facility: 03/03/19 17:29
--- NOTE | 2019-03-02 20:21 | Hospitalist Progress Note ---
Date of Service March 02, 2019 Assessment & Plan (1) Sepsis: Transfer to [facility] Continue vancomycin ceftriaxone and doxycycline in the ER. Lactobacillus to prevent C. difficile Incentive spirometer and pulmonary toilet DVT prophylaxis Lovenox 40 mg subcu daily Full code (2) Pneumonia: As above (3) Acidosis, lactic: Status post IV fluid hydration, improved (4) Leukocytosis: Improved (5) Left rib fracture: Fracture is nondisplaced, continue medical management Likely osteoporosis due to fracture from falling from ground-level (6) Chronic pain: Pain management consult appreciated Subjective Appears to be comfortable not in acute distress Complains of lower back pain, both lower extremity pain Review of Systems Review of Systems: Review of system Constitutional: No fever / no chills / no sweats / no weakness / no fatigue Eyes: no blurring of vision / no eye pain / no discharge / no redness ENT: no hearing loss / no epistaxis /no swallowing problems Respiratory: no cough / no wheezing / no SOB / no hemoptysis Cardiovascular: no Chest pain / no lower extremity edema / no palpitation Abdomen: no pain / no nausea / no vomiting / no constipation Musculoskeletal: Severe lower back pain and drinking Genitourinary: no dysuria / no incontinence / no urinary retention Neurologic: no focal weakness / no numbness/tingling / no ataxia Psychiatric: no depression symptoms / no anxiety / no insomnia Endocrine: no excessive thirst / no excessive urination Hematologic: no abnormal bleeding / no bruising / no LN swelling Skin: No rash / no pallor Physical Exam Physical Exam: Physical examination General frail elderly man appears to be not in acute distress HEENT: Atraumatic , normocephalic /no jaundice /no pallor /anicteric /no dry mucous membrane /normal external ear inspection Neck: Supple /no swelling /central trach Heart: S1/S2 normal/regular rate and rhythm/no gallop /no rub /no murmur Lungs: Decreased air entry bilaterally, decreased chest wall expansion, scattered rhonchi Abdomen: Soft/nontender/no guarding/no rebound/no organomegaly/no pulsatile mass Musculoskeletal: Lower back and joint tenderness Neuro exam: Awake alert oriented 3/cranial nerves II through XII appear to be intact/sensation intact/moves all extremities/no abnormal movements Psychiatric evaluation: No depressed mood/normal affect Skin: No rash on exposed skin area/no erythema Extremity: Normal pulse/no pitting edema/no clubbing or cyanosis Results & Data Vital Signs (Past 12 Hours) Vital Signs Temp Pulse Resp BP Pulse Ox 03/02/19 19:24 36.8 C 78 24 146/90 H 94 03/02/19 15:51 36.5 C 68 18 135/95 95 03/02/19 11:34 37.0 C 62 20 106/77 93 PG Care Time/CCT Total # of Minutes Spent Total Time Spent with Patient: 35 minutes total time spent is greater than 50% in coordination of care (as documented) at patient's floor/unit and/or counselin g patient/family discussion of care with nursing staff (1) Sepsis Sepsis acute organ dysfunction status: unspecified Sepsis type: sepsis due to unspecified organism Qualified Code(s): A41.9 - Sepsis, unspecified organism (2) Pneumonia Laterality: bilateral Lung location: unspecified part of lung Pneumonia type: due to unspecified organism Qualified Code(s): J18.9 - Pneumonia, unspecified organism (3) Leukocytosis Leukocytosis type: unspecified Qualified Code(s): D72.829 - Elevated white blood cell count, unspecified (4) Left rib fracture Encounter type: initial encounter Fracture type: closed Rib fracture type: single rib Qualified Code(s): S22.32XA - Fracture of one rib, left side, initial encounter for closed fracture
[2019-03-02] MEDS: ENOXAPARIN INJ 40 MG/0.4 ML SYR SQ SCH (21:44)
[2019-03-03] MEDS: OXYCODONE HCL IR 5 MG TAB (IMMEDIATE RELEASE) PO PRN ×3 (01:01→15:45)
[2019-03-03] MEDS: ALPRAZolam 0.5 MG TABLET PO PRN ×2 (03:09→12:28)
[2019-03-03] MEDS: METHADONE HCL 10 MG TAB PO PRN ×3 (03:09→17:02)
[2019-03-03] MEDS: GABAPENTIN 100 MG CAP PO SCH ×2 (07:23→14:01)
[2019-03-03] MEDS: ACETAMINOPHEN 325 MG TAB PO PRN (07:24)
[2019-03-03] MEDS: LACTOBACILLUS ACIDOPHILUS (FLORANEX) TAB PO SCH ×2 (07:25→12:28)
[2019-03-03] MEDS: PANTOprazole 40 MG TAB PO SCH (07:25)
[2019-03-03] MEDS: CHOLECALCIFEROL 1,000 UNITS TAB PO SCH (07:25)
[2019-03-03] MEDS: LIDOCAINE 5% 1 PATCH TD SCH (07:26)
[2019-03-03] MEDS: ATORVASTATIN 10 MG TAB PO SCH (07:26)
[2019-03-03 07:41] LABS: Albumin Level 3.1 gm/dl (3.4-5.0); BUN Creatinine Ratio 20.4 (10-20); Calcium 7.7 mg/dl (8.5-10.1); Creatinine Clr Calc Pharmacy 85.5 ml/min; Est GFR (African American) 115.6; Est GFR (Non-African American) 99.7; Potassium 3.8 mmol/L (3.5-5.1)
[2019-03-03 07:43] LABS: Bilirubin,Total 0.6 mg/dl (0.2-1); Globulin 3.3 gm/dl (2.5-4.0); Total Protein 6.4 gm/dl (6.4-8.2)
--- NOTE | 2019-03-03 12:05 | Medical Student Progress Note ---
Date of Service March 03, 2019 This part of the note was copied from the discharge summary, please refer to my discharge summary No billing will be done on this part of the note I personally interviewed and examined the patient. I agree with below mentioned hospital course and physical exam mentioned above, I also performed my own history taking and examination. Past medical history and review of system has been obtained by myself I reviewed all pertinent labs and studies Reviewed current medications I discussed and formulated of the assessment and plan mentioned above. Please refer to the Summary mentioned below. 63-year-old man who lives in a cabin in the [facility] with significant past medical history of chronic pain/lower back pain multiple medical problems including dyslipidemia and chronic opioid dependence. He presented to the hospital after sustaining multiple falls, initial imaging showed fifth and sixth rib fractures with multifocal bilateral pneumonia. Patient also was found to have sepsis/leukocytosis and was started on vancomycin, ceftriaxone and doxycycline. Patient leukocytosis significantly improved, he received vitamin D for his presumptive vitamin D deficiency and osteoporosis, received physical therapy and Occupational Therapy that recommended [facility], his shortness of breath improved slowly, we placed a Lidoderm patch on his chest wall, recommended pretty nutritional supplement for his malnutrition, recommended tapering down his methadone slowly and referral to pain management. Today patient Appears to be within acceptable medical stability for discharge, his oxygen saturation is normal in room air. Final discharge diagnoses Sepsis present on admission secondary to below multifocal bilateral multilobar pneumonia Multiple falls Likely osteoporosis to due to fracture sustained from ground-level fall Moderate severe caloric malnutrition Chronic lower back pain/chronic opioid dependence General frail elderly man appears to be not in acute distress HEENT: Atraumatic , normocephalic /no jaundice /no pallor /anicteric /no dry mucous membrane /normal external ear inspection Neck: Supple /no swelling /central trach Heart: S1/S2 normal/regular rate and rhythm/no gallop /no rub /no murmur Lungs: Decreased air entry bilaterally, decreased chest wall expansion, scattered rhonchi Abdomen: Soft/nontender/no guarding/no rebound/no organomegaly/no pulsatile mass Musculoskeletal: Lower back and joint tenderness Neuro exam: Awake alert oriented 3/cranial nerves II through XII appear to be intact/sensation intact/moves all extremities/no abnormal movements Psychiatric evaluation: No depressed mood/normal affect Skin: No rash on exposed skin area/no erythema Extremity: Normal pulse/no pitting edema/no clubbing or cyanosis [facility] Discharge note was initiated yesterday, but the patient did not leave the hospital as he was waiting for authorization, discharge note was finalized today and addendum as needed Discharge date is 03/03/2019 Date of service is 03/03/2019 Assessment & Plan (1) Sepsis: Problem resolved. Continue ceftriaxone and doxycycline IV for pneumonia. Sepsis acute organ dysfunction status: unspecified Sepsis type: sepsis due to unspecified organism Qualified Code(s): A41.9 - Sepsis, unspecified organism (2) Pneumonia: Shortness of breath has improved. No longer coughing up blood-tinged sputum. Continue with ceftriaxone and doxycycline IV. Laterality: bilateral Lung location: unspecified part of lung Pneumonia type: due to unspecified organism Qualified Code(s): J18.9 - Pneumonia, unspecified organism (3) Acidosis, lactic: Problem resolved with IV fluid hydration. (4) Leukocytosis: Downtrending since admission: 24.62K (02/27 at 1629) --> 21.31K (02/27 at 2214) --> 17.20K (02/28 at 0428) --> 11.60K (02/28 at 0950) --> 10.31K (02/28 at 1551) --> 8.32K (02/28 at 2159) --> 6.01K (03/02 at 0602). Continue ceftriaxone and doxycycline for pneumonia. Leukocytosis type: unspecified Qualified Code(s): D72.829 - Elevated white blood cell count, unspecified (5) Left rib fracture: Fracture is nondisplaced. Patient endorses Lidoderm patch over rib fractures is helping with pain. Continue pain management and Lovenox 40 SQ daily. Encounter type: initial encounter Fracture type: closed Rib fracture type: single rib Qualified Code(s): S22.32XA - Fracture of one rib, left side, initial encounter for closed fracture (6) Chronic pain: Patient has a history of cervical spinal stenosis, arthritis, and neuropathy. Patient mentions baseline pain being at a 6 on his medications (see Opioid Dependence below) and at an 8-9 without his medication. Today, he rates his pain at a 6-7. He still speak about pain radiating down both legs, with more pain being in the right vs. the left. Patient also endorses R leg and foot and bilateral finger numbness. Derivation likely from spinal stenosis and history of neuropathy. Continue pain medications. (7) Bradycardia, sinus: Patient has sinus bradycardia (40s-60s) at night, likely secondary to obstructive sleep apnea. Recommending sleep study as an outpatient. (8) Opioid dependence: Patient has history of spinal stenosis, neuropathy, and DJD. Medications include gabapentin 100 mg TID, alprazolam 0.5 mg tablet 3 times daily as needed for anxiety, methadone 10 mg tablet p.o. every 6 hr, Oxycodone 5 mg Q8 hr prn, Methylphenidate 10 mg p.o. 3 times daily as needed, naloxone 4 mg nasal spray. Patient at risk for polypharmacy. Advised via pain management to continue taking home medications. (9) Protein malnutrition: Patient appears cachectic and frail. TSH level is normal, however patient has slight hypocalcemia and low total protein. Continue Vitamin D supplementation and nutritional supplement along with soft foods. (10) Anxiety and depression: Patient has a history of both anxiety and depression, for which he takes Alprazolam 0.5 mg PO TID PRN. This appears to be exacerbated/worsened by his current living situation and isolation from others. Continue taking Alprazolam as prescribed and follow-up with prescribing physician post-discharge. Subjective Patient is a 63 y/o male with a past medical history of chronic pain, anxiety, depression, arthritis, spinal stenosis, neuropathy, and hyperlipidemia who presented to the [facility] ER on February 27 after sustaining falls within his home. Chest x-ray showed healing left anterior fourth and fifth rib fracture, focal deformity within the left anterior sixth rib constant with an age-indeterminant fracture, and a small cluster of groundglass nodular opacities within the superior left lower lobe and right lung apex. 03/03: He speaks about improvement with his shortness of breath and productive cough. He states, "I don't feel that stuff in me anymore." Patient had a fecal incontinent episode in his sleep and has passed a "medium sized loose stool" last evening. Mood and affect appear to be more euthymic. Patient is pleased about possibility of discharge to a facility where he can be cared for and interact with others. Physical Exam Constitutional: + ill appearing, + cachectic and + frail appearing; no acute distress Eyes: PERRL, conjunctivae normal, anicteric sclerae EOM intact bilaterally and + nystagmus (intermittent L horizonal); normal light reflex, no fundoscopic abnormality and no papilledema ENMT: Ears: + hearing impairment (not apparent) Mouth: + poor dentition; no tongue abnormality Neck: trachea midline; no anterior neck swelling Respiratory: normal respiratory effort, + tactile fremitus and able to speak in complete sentences Auscultation: + diminished lung sounds and + rhonchi; no wheezes and no egophony Cardiovascular: RRR, no murmur, no edema Heart Sounds: normal S1 and normal S2; no click, no gallop and no cardiac rub Vessels: no JVD and no carotid bruit Extremities: normal capillary refill and + calf tenderness; no pedal edema Gastrointestinal (Abdomen): normal bowel sounds, soft, nontender, no hepatosplenomegaly Inspection/Auscultation: abdomen normal to inspection, normal bowel sounds and + abdominal surgical scar; no abdominal edema Percussion/Palpation: abdomen soft; abdomen nontender Musculoskeletal: Head/Neck/Chest: normocephalic and head atraumatic Extremities: no cyanosis and no clubbing Skin: + dry skin and + ecchymosis (chin, small area in abdominal left lower quadrant, bilateral anterior tib) Neurologic: CN's II-XI intact bilaterally (appear to be) and moves all extremities; no focal motor deficits Psychiatric: Orientation: alert and oriented x 3 Eye Contact: good eye contact Speech: normal rate/rhythm/volume of speech Affect: euthymic affect Results & Data Medications Administered Acetaminophen (Tylenol) 650 mg PO Q4H PRN PRN Reason: Pain or Fever Stop: 03/29/19 21:51 Last Admin: 03/03/19 07:24 Dose: 650 mg Documented by: [id number] Admin: 03/02/19 12:35 Dose: 650 mg Documented by: [id number] Admin: 03/01/19 08:37 Dose: 650 mg Documented by: [id number] Admin: 02/28/19 14:07 Dose: 650 mg Documented by: [id number] Admin: 02/28/19 07:46 Dose: 650 mg Documented by: [id number] Al Hydrox/Mg Hydrox/Simethicone (Maalox) 15 ml PO Q4H PRN PRN Reason: Dyspepsia Stop: 03/29/19 21:51 Last Admin: 02/28/19 16:09 Dose: 15 ml Documented by: [id number] Alprazolam (Xanax) 0.5 mg PO TID PRN PRN Reason: anxiety Stop: 03/29/19 21:51 Last Admin: 03/03/19 03:09 Dose: 0.5 mg Documented by: [id number] Admin: 03/02/19 13:58 Dose: 0.5 mg Documented by: [id number] Admin: 03/02/19 07:59 Dose: 0.5 mg Documented by: [id number] Admin: 03/01/19 15:49 Dose: 0.5 mg Documented by: [id number] Admin: 02/28/19 21:53 Dose: 0.5 mg Documented by: [id number] Admin: 02/28/19 14:07 Dose: 0.5 mg Documented by: [id number] Admin: 02/28/19 07:47 Dose: 0.5 mg Documented by: [id number] Admin: 02/27/19 22:26 Dose: 0.5 mg Documented by: [id number] Atorvastatin Calcium (Lipitor) 10 mg PO QAM [facility] Stop: 03/30/19 08:59 Last Admin: 03/03/19 07:26 Dose: 10 mg Documented by: [id number] Admin: 03/02/19 07:28 Dose: 10 mg Documented by: [id number] Admin: 03/01/19 08:36 Dose: 10 mg Documented by: [id number] Admin: 02/28/19 07:48 Dose: 10 mg Documented by: [id number] Enoxaparin Sodium (Lovenox) 40 mg SQ Q24H [facility] Stop: 03/29/19 21:59 Last Admin: 03/02/19 21:44 Dose: 40 mg Documented by: [id number] Admin: 03/01/19 21:12 Dose: 40 mg Documented by: [id number] Admin: 02/28/19 21:43 Dose: 40 mg Documented by: [id number] Admin: 02/27/19 22:56 Dose: 40 mg Documented by: [id number] Gabapentin (Neurontin) 200 mg PO TID [facility] Stop: 03/31/19 13:59 Last Admin: 03/03/19 07:23 Dose: 200 mg Documented by: [id number] Admin: 03/02/19 20:45 Dose: 200 mg Documented by: [id number] Admin: 03/02/19 13:58 Dose: 200 mg Documented by: [id number] Admin: 03/02/19 07:27 Dose: 200 mg Documented by: [id number] Admin: 03/01/19 19:22 Dose: 200 mg Documented by: [id number] Admin: 03/01/19 13:16 Dose: 200 mg Documented by: [id number] Ketorolac Tromethamine (Toradol) 15 mg IV Q6H PRN PRN Reason: Pain Stop: 03/05/19 08:46 Last Admin: 03/02/19 23:25 Dose: 15 mg Documented by: [id number] Admin: 03/02/19 16:29 Dose: 15 mg Documented by: [id number] Admin: 03/02/19 06:15 Dose: 15 mg Documented by: [id number] Admin: 03/01/19 23:56 Dose: 15 mg Documented by: [id number] Admin: 03/01/19 06:08 Dose: 15 mg Documented by: [id number] Admin: 02/28/19 21:53 Dose: 15 mg Documented by: [id number] Admin: 02/28/19 09:04 Dose: 15 mg Documented by: [id number] Lactobacillus Acidophilus (Floranex) 4 tab PO TIDM [facility] Stop: 04/01/19 07:59 Last Admin: 03/03/19 07:25 Dose: 4 tab Documented by: [id number] Admin: 03/02/19 16:29 Dose: 4 tab Documented by: [id number] Admin: 03/02/19 12:33 Dose: 4 tab Documented by: [id number] Admin: 03/02/19 07:26 Dose: 4 tab Documented by: [id number] Lidocaine (Lidoderm 5%) 1 patch TD QAM [facility] Stop: 03/31/19 09:59 Last Admin: 03/03/19 07:26 Dose: 1 patch Documented by: [id number] Admin: 03/02/19 07:27 Dose: 1 patch Documented by: [id number] Admin: 03/01/19 09:55 Dose: 1 patch Documented by: [id number] Magnesium Hydroxide (Milk Of Magnesia) 30 ml PO Q12H PRN PRN Reason: Constipation Stop: 03/29/19 21:51 Last Admin: 03/02/19 07:59 Dose: 30 ml Documented by: [id number] Methadone HCl (Dolophine) 10 mg PO Q6H PRN PRN Reason: pain Stop: 03/13/19 21:51 Last Admin: 03/03/19 09:59 Dose: 10 mg Documented by: [id number] Admin: 03/03/19 03:09 Dose: 10 mg Documented by: [id number] Admin: 03/02/19 19:41 Dose: 10 mg Documented by: [id number] Admin: 03/02/19 12:34 Dose: 10 mg Documented by: [id number] Admin: 03/02/19 06:27 Dose: 10 mg Documented by: [id number] Admin: 03/01/19 21:10 Dose: 10 mg Documented by: [id number] Admin: 03/01/19 13:16 Dose: 10 mg Documented by: [id number] Methylphenidate HCl (Ritalin) 10 mg PO TID PRN PRN Reason: LETHARGY Stop: 03/13/19 21:51 Last Admin: 03/02/19 07:59 Dose: 10 mg Documented by: [id number] Admin: 02/28/19 07:46 Dose: 10 mg Documented by: [id number] Miscellaneous (Remove Lidoderm Patch) 1 ea N/A DAILY@2100 [facility] Stop: 03/31/19 20:59 Last Admin: 03/02/19 20:46 Dose: 1 ea Documented by: [id number] Admin: 03/01/19 20:31 Dose: 1 ea Documented by: [id number] Ondansetron HCl (Zofran Odt) 2 mg PO Q4H PRN PRN Reason: Nausea Stop: 03/31/19 09:36 Last Admin: 03/01/19 09:55 Dose: 2 mg Documented by: [id number] Oxycodone HCl (Roxicodone Immediate Rel) 10 mg PO Q8H PRN PRN Reason: Severe Pain Stop: 03/14/19 08:44 Last Admin: 03/03/19 07:24 Dose: 10 mg Documented by: [id number] Admin: 03/03/19 01:01 Dose: 10 mg Documented by: [id number] Admin: 03/02/19 16:35 Dose: 10 mg Documented by: [id number] Admin: 03/02/19 07:59 Dose: 10 mg Documented by: [id number] Admin: 03/01/19 19:21 Dose: 10 mg Documented by: [id number] Pantoprazole Sodium (Protonix) 40 mg PO [facility] Stop: 03/30/19 08:59 Last Admin: 03/03/19 07:25 Dose: 40 mg Documented by: [id number] Admin: 03/02/19 07:28 Dose: 40 mg Documented by: [id number] Admin: 03/01/19 08:37 Dose: 40 mg Documented by: [id number] Admin: 02/28/19 07:47 Dose: 40 mg Documented by: [id number] Polyethylene Glycol (Miralax Powder Packet) 17 gm PO DAILY PRN PRN Reason: Constipation Stop: 03/29/19 21:51 Last Admin: 03/02/19 08:00 Dose: 17 gm Documented by: [id number] Admin: 03/01/19 08:36 Dose: 17 gm Documented by: [id number] Admin: 02/28/19 21:39 Dose: 17 gm Documented by: [id number] Vitamin D (Vitamin D3) 1,000 units PO [facility] Stop: 04/01/19 08:59 Last Admin: 03/03/19 07:25 Dose: 1,000 units Documented by: [id number] Admin: 03/02/19 07:28 Dose: 1,000 units Documented by: [id number]
[2019-03-03] MEDS: METHYLPHENIDATE HCL 10 MG TABLET PO PRN (12:28)
[2019-03-03] MEDS ORDERED: DOXYCYCLINE HYCLATE 100 MG in DEXTROSE 5% 100 ML IV SCH (13:00)
[2019-03-03] MEDS ORDERED: cefTRIAXone SODIUM 2,000 MG in DEXTROSE 5% 50 ML IV SCH (13:00)
[2019-03-03 15:22] VITALS: TEMP 98.4; O2SAT 95
[2019-03-03] MEDS: KETOROLAC TROMETHAMINE 15 MG/ML VIAL IV PRN (15:45)
[2019-03-03 16:33] VITALS: BP 98/66; PULSE 81
--- NOTE | 2019-03-03 17:40 | Discharge Summary ---
Date of Service March 03, 2019 March 03, 2019 I personally interviewed and examined the patient. I agree with below mentioned hospital course and physical exam mentioned above, I also performed my own history taking and examination. Past medical history and review of system has been obtained by myself I reviewed all pertinent labs and studies Reviewed current medications I discussed and formulated of the assessment and plan mentioned above. Please refer to the Summary mentioned below. 63-year-old man who lives in a cabin in the [facility] with significant past medical history of chronic pain/lower back pain multiple medical problems including dyslipidemia and chronic opioid dependence. He presented to the hospital after sustaining multiple falls, initial imaging showed fifth and sixth rib fractures with multifocal bilateral pneumonia. Patient also was found to have sepsis/leukocytosis and was started on vancomycin, ceftriaxone and doxycycline. Patient leukocytosis significantly improved, he received vitamin D for his presumptive vitamin D deficiency and osteoporosis, received physical therapy and Occupational Therapy that recommended discharge to residential facility, his shortness of breath improved slowly, we placed a Lidoderm patch on his chest wall, recommended pretty nutritional supplement for his malnutrition, recommended tapering down his methadone slowly and referral to pain management. Today patient Appears to be within acceptable medical stability for discharge, his oxygen saturation is normal in room air. Final discharge diagnoses Sepsis present on admission secondary to below multifocal bilateral multilobar pneumonia Multiple falls Likely osteoporosis to due to fracture sustained from ground-level fall Moderate severe caloric malnutrition Chronic lower back pain/chronic opioid dependence General frail elderly man appears to be not in acute distress HEENT: Atraumatic , normocephalic /no jaundice /no pallor /anicteric /no dry mucous membrane /normal external ear inspection Neck: Supple /no swelling /central trach Heart: S1/S2 normal/regular rate and rhythm/no gallop /no rub /no murmur Lungs: Decreased air entry bilaterally, decreased chest wall expansion, scattered rhonchi Abdomen: Soft/nontender/no guarding/no rebound/no organomegaly/no pulsatile mass Musculoskeletal: Lower back and joint tenderness Neuro exam: Awake alert oriented 3/cranial nerves II through XII appear to be intact/sensation intact/moves all extremities/no abnormal movements Psychiatric evaluation: No depressed mood/normal affect Skin: No rash on exposed skin area/no erythema Extremity: Normal pulse/no pitting edema/no clubbing or cyanosis Valerie Bonilla MD, [facility]ist group Discharge note was initiated yesterday, but the patient did not leave the hospital as he was waiting for authorization, discharge note was finalized today and addendum as needed Discharge date is 03/03/2019 Date of service is 03/03/2019 Admission HPI Per Admitting Provider Patient is a 63 y/o male with a past medical history of chronic pain, anxiety, depression, arthritis, spinal stenosis, neuropathy, and hyperlipidemia who presented to the [facility] ER on February 27 after sustaining falls within his home. Chest x-ray showed healing left anterior fourth and fifth rib fracture, focal deformity within the left anterior sixth rib constant with an age-indeterminant fracture, and a small cluster of groundglass nodular opacities within the superior left lower lobe and right lung apex. 03/03: He speaks about improvement with his shortness of breath and productive cough. He states, "I don't feel that stuff in me anymore." Patient had a fecal incontinent episode in his sleep and has passed a "medium sized loose stool" last evening. Mood and affect appear to be more euthymic. Patient is pleased about discharge to a facility where he can be cared for and interact with others. Discharge Data Consultations 02/27/19 18:39 ED Decision to Admit Stat 02/27/19 22:31 Consult Pain Management Routine 02/28/19 13:23 Consult Case Management - Discharge Planning Routine
--- NOTE | 2019-03-04 08:28 | Hospitalist Progress Note ---
Date of Service March 01, 2019 This note was placed for billing purposes, it is an extension to my previous note. Please refer to the full note that was generated by me and the medical student for the same day for clinical information. PG Care Time/CCT Total # of Minutes Spent Total Time Spent with Patient: Total time spent is greater than 50% in coordination of care (as documented) at patient's floor/unit and/or counseling patient:
--- NOTE | 2019-03-04 08:32 | Discharge Summary ---
Date of Service March 03, 2019 This note was placed for billing purposes, it is an extension to my previous note. Please refer to the full note that was generated by me and the medical student for the same day for clinical information. Admission HPI Per Admitting Provider Patient is a 63 y/o male with a past medical history of chronic pain, anxiety, depression, arthritis, spinal stenosis, neuropathy, and hyperlipidemia who presented to the [facility] ER on February 27 after sustaining falls within his home. Chest x-ray showed healing left anterior fourth and fifth rib fracture, focal deformity within the left anterior sixth rib constant with an age-indeterminant fracture, and a small cluster of groundglass nodular opacities within the superior left lower lobe and right lung apex. 03/03: He speaks about improvement with his shortness of breath and productive cough. He states, "I don't feel that stuff in me anymore." Patient had a fecal incontinent episode in his sleep and has passed a "medium sized loose stool" last evening. Mood and affect appear to be more euthymic. Patient is pleased about discharge to a facility where he can be cared for and interact with others. Principal Diagnosis This note was placed for billing purposes, it is an extension to my previous note. Please refer to the full note that was generated by me and the medical student for the same day for clinical information. Discharge Data Allergies Allergy/AdvReac Type Severity Reaction Status Date / Time erythromycin base Allergy Intermediate Rash Verified 02/27/19 17:23 Consultations 02/27/19 18:39 ED Decision to Admit Stat 02/27/19 22:31 Consult Pain Management Routine 02/28/19 13:23 Consult Case Management - Discharge Planning Routine Ordered Studies 02/27/19 16:21 CT abd pelvis IV con only Stat CT cervical spine wo con Stat CT chest w con Stat CT head/brain wo con Stat Total Time Total Time Spent Total Time Spent (In Minutes): 35 minutes total time spent is greater than 50% in coordination of care (as documented) at patient's floor/unit and/or counseling patient/family discussion of care with nursing staff Discharge Plan Discharge Items Patient Disposition: Transfer Jail Fac Reason For Visit: BILATERAL PNEUMONIA, FREQUENT FALLS, POLYPHARMACY Discharge Diagnosis: Sepsis present on admission secondary to below Bilateral multifocal community-acquired pneumonia Lactic acidosis secondary to above, resolved Multiple left ribs fracture, nondisplaced Likely osteoporosis due to fracture sustained from ground-level fall Chronic lower back pain/DJD Chronic opioid dependence Moderate protein/caloric malnutrition Generalized weakness and severe deconditioning Discharge Goals: Decrease discomfort, Improve disease control and Improve function Activity: Resume your previous activity Activity Comment: Fall precautions, need physical therapy/Occupational Therapy Lifting: Gradually increase as tolerated and No more than 5 pounds Bathing: No limitations Bathing Comment: With supervision and fall precaution Exercise/Sports: Gradually increase as tolerated Weightbearing: Full weightbearing Non-emergency contact: Primary Care Provider Call non-emergency contact if: you have any medication questions and your pain is not controlled Follow-up/Referrals: Hernando Morelos III, MD [Primary Care Provider] - Diet: Regular Addtl Provider Instructions: Very gradual and slow taper of your pain medications/opioid Nutritional supplement, Ensure plus twice a day Encourage adequate oral intake Physical therapy/Occupational Therapy Consider neurologic evaluation as an outpatient if no improvement Patient needs to follow-up as soon as possible with pain management to refill a ll his pain medications and to gradually taper them down Continue Lovenox for DVT prophylaxis until the patient gains enough mobility to prevent DVT, will leave it up to the discretion of the supervising physician and staff Prescriptions: New acetaminophen [Mapap (acetaminophen)] 325 mg Tablet 650 mg PO Q6H PRN (Reason: Pain, Moderate) Qty: 15 RF: 0 oxycodone 5 mg Tablet 10 mg PO Q8H PRN (Reason: Pain, Severe) Qty: 30 RF: 0 enoxaparin 40 mg/0.4 mL Syringe 40 mg subcut Q24H Qty: 10 RF: 0 MAG-AL 200-200 mg/5 mL Suspension 15 ml PO 5XD PRN (Reason: Dyspepsia) Qty: 100 RF: 0 polyethylene glycol 3350 [Miralax] 17 gram Powder In Packet 17 g PO DAILY Qty: 30 RF: 3 lidocaine 5 % Adhesive Patch,Medicated 1 patch transdermal QAM Qty: 30 RF: 0 cholecalciferol (vitamin D3) [Vitamin D3] 1,000 unit (25 mcg) Tablet 1,000 unit PO QAM Qty: 30 RF: 0 Lactobacillus acidoph-L.bulgar [Floranex] 1 million cell Tablet 4 tab PO TIDM 30 Days Qty: 60 RF: 0 Remove Lidoderm Patch 1 ea N/A DAILY@2100 Qty: 30 RF: 0 cefdinir 300 mg capsule 300 mg PO BID 4 Days Qty: 8 RF: 0 doxycycline hyclate 100 mg capsule 100 mg PO BID 4 Days Qty: 8 RF: 0 sennosides-docusate sodium [Senna-S] 8.6-50 mg tablet 1 tab PO BID Qty: 60 RF: 0 bisacodyl 10 mg suppository 10 mg DE Q72H PRN (Reason: constipation) Qty: 16 RF: 0 Continued Narcan 4 mg/actuation spray,non-aerosol 1 sprays INTNAS Q2M Qty: 2 RF: 5 atorvastatin 10 mg tablet 10 mg PO QAM RF: 0 pantoprazole 40 mg tablet,delayed release (DR/EC) 40 mg PO QAM RF: 0 buspirone 15 mg tablet 15 mg PO TID PRN (Reason: Panic Attack/Anxiety) RF: 0 alprazolam 0.5 mg tablet 0.5 mg PO TID PRN (Reason: anxiety) Qty: 15 RF: 0 gabapentin 100 mg capsule 100 mg PO TID Qty: 15 RF: 0 Changed methylphenidate HCl 10 mg tablet 10 mg PO DAILY Qty: 12 RF: 0 methadone 10 mg tablet 10 mg PO Q12H PRN (Reason: Pain, Severe) Qty: 12 RF: 0 Discontinued oxycodone 10 mg tablet 10 mg PO TID PRN (Reason: pain) Qty: 90 RF: 0 Stand-Alone Forms: [facility] Discharge Orders: Discharge Order (Routine); Ordered 03/03/19 Ordered By: Valerie Bonilla Skilled Items Patient informed of condition?: Yes DNR: No Discharge Level of Care: Skilled Communicable Disease: No Discharge Prognosis: Improving Admission Data Admit Date/Time: 02/27/19 20:19 Attending Provider: Valerie French Admit Provider: Raoul Arnett Primary Care Provider: Hernando Morelos III Other Providers: Raoul Arnett ; Tae Elliott Service: Telemetry Other Interventions: Discharge Summary Assessment (RN) Last Done: 03/03/19 16:30 DC Date/Time DO NOT enter until pt leaves facility: 03/03/19 17:29
== END 2019-03-03 17:29 | DRG 871 ==
LOC: ED 16:03 → 2E 20:19 → SUATTDRO 20:19 → 2E 21:36
DX: S22.32XA Fracture of one rib, left side, initial encounter for closed fracture; F32.9 Major depressive disorder, single episode, unspecified; A41.9 Sepsis, unspecified organism; Z82.49 Family history of ischemic heart disease and other diseases of the circulatory system; E87.2 Acidosis; M19.90 Unspecified osteoarthritis, unspecified site; G89.29 Other chronic pain; E78.5 Hyperlipidemia, unspecified; F41.9 Anxiety disorder, unspecified; J18.9 Pneumonia, unspecified organism; D72.829 Elevated white blood cell count, unspecified; Z81.8 Family history of other mental and behavioral disorders; Z83.3 Family history of diabetes mellitus

== ENCOUNTER 2019-05-24 12:45 | Inpatient (IN) ==
[2019-05-24] MEDS ORDERED: ONDANSETRON INJ 2 MG/ML 2 ML VIAL IV STA (13:39)
[2019-05-24 13:54] LABS: Basophils # (auto) 0.02 K/uL (0-0.2); Basophils % (auto) 0.3 %; Eosinophils # (auto) 0.11 K/uL (0-0.5); Eosinophils % (auto) 1.5 %; Hematocrit (blood only) 48.3 % (42-52); Hemoglobin 16.4 g/dL (14.0-18.0); Immature Granulocytes # (auto) 0.02 K/uL (0.00-0.02); Immature Granulocytes % (auto) 0.3 %; Lymphocytes # (auto) 1.98 K/uL (1.2-3.4); Lymphocytes % (auto) 27.1 %; Mean Corpuscular Hemoglobin 32.3 pg (25-34); Mean Corpuscular Volume 95.1 fL (80-100); Mean Platelet Volume 9.9 fL (7.4-10.4); Monocytes # (auto) 0.45 K/uL (0.11-0.59); Monocytes % (auto) 6.2 %; Neutrophils # (auto) 4.72 K/uL (1.4-6.5); Neutrophils % (auto) 64.6 %; Platelet Count 207 K/uL (130-400); RDW Coefficient of Variation 13.8 % (11.5-14.5); RDW Standard Deviation 48.5 fL (36.4-46.3); Red Blood Count 5.08 M/uL (4.7-6.1)
[2019-05-24 14:03] LABS: Appearance Urine Clear (Clear); Bilirubin Urine Negative (Negative); Blood Urine Negative (Negative); Color Urine Yellow; Glucose Urine UA Negative (Negative); Ketones Urine Negative (Negative); Leukocyte Esterase Urine Negative (Negative); Nitrite Urine Negative (Negative); Protein Urine Negative (Negative); Urobilinogen Urine Negative (Negative)
--- NOTE | 2019-05-24 14:10 | CT Scan Report ---
CT head/brain wo con CLINICAL HISTORY: Head pain status post trauma COMPARISON STUDY: 02/27/2019 TECHNIQUE: Axial CT of the brain is performed from the vertex to the skull base. IV contrast was not administered for this examination. A dose lowering technique was utilized adhering to the principles of ALARA. CT DOSE: FINDINGS: No intra or extra-axial mass lesions are visualized. There is no CT evidence of acute cortical infarc tion. There is no evidence of midline shift. There is no acute hemorrhage. No calvarial fractures ar e visualized. Increased signal to the left of the german, likely represents the basal vein. There is no evidence of pathologic ventricular dilatation. There is no evidence of acute sinusitis IMPRESSION: No acute intracranial findings Electronically signed by: Roly Cabrera M.D. 05/24/2019 2:09 PM
[2019-05-24 14:13] LABS: Albumin Level 4.1 gm/dl (3.4-5.0); BUN Creatinine Ratio 13.7 (10-20); Calcium 9.1 mg/dl (8.5-10.1); Creatinine Clr Calc Pharmacy 87.2 ml/min; Est GFR (African American) 108.9; Est GFR (Non-African American) 93.9; Potassium 4.1 mmol/L (3.5-5.1)
--- NOTE | 2019-05-24 14:15 | CT Scan Report ---
CT cervical spine wo con CLINICAL HISTORY: 63 years-old Male presenting with TRAUMA. TECHNIQUE: Multidetector CT of the cervical spine was performed without the use of intravenous contra st. IV contrast: None. One or more dose lowering techniques were used consistent with the principles of ALARA (as low as reasonably achievable), including automatic exposure control, mA or kV adjustment to individual patient size, and/or use of iterative reconstruction. COMPARISON: 02/27/2019. CT DOSE (mGy.cm): The estimated cumulative dose is 1380.87 mGy.cm. FINDINGS: Gearman topogram: Unremarkable. Normal cervical lordosis. Trace retrolisthesis of C4 on C5. Vertebral bodies otherwise maintain farzana l height and alignment. Multilevel moderate to severe intervertebral disc height loss. Disc osteophyt e complexes are noted to varying degrees at every level. Moderate posterior spondylitic spurring is g reatest at C4-5 with resultant osseous spinal canal narrowing. Evaluation of the soft tissues of the spinal canal do not demonstrate further effacement. Degenerative changes of the atlantodental articul ation. Uncovertebral hypertrophy and facet arthropathy results in multilevel osseous neural foraminal narrowing. No acute fracture or subluxation. Lung apices clear. Paraspinal soft tissues within farzana l limits. IMPRESSION: 1. No acute osseous injury. 2. Multilevel degenerative changes of the cervical spine with multilevel spinal canal and neural for aminal narrowing. Electronically signed by: Juan Bedoya M.D. 05/24/2019 2:14 PM
[2019-05-24 14:16] LABS: Albumin Globulin Ratio 1.1 (0.9-2); Bilirubin,Total 0.5 mg/dl (0.2-1); Globulin 3.7 gm/dl (2.5-4.0); Total Protein 7.8 gm/dl (6.4-8.2)
--- NOTE | 2019-05-24 14:42 | XRay Report ---
XR chest 1V portable CLINICAL HISTORY: Pain status post trauma COMPARISON STUDY: 11/04/2018 FINDINGS: There is a thoracolumbar scoliosis. There is elevation of the right hemidiaphragm. No pneum othorax is visualized. Linear opacities the left lung base are atelectatic. There are increased kenia ngs within the right mid to lower lung zone. This could be related to technical factors, interstitial edema, or interstitial inflammatory process. If symptoms persist, a PA and lateral study should be c onsidered in follow-up.[ IMPRESSION: 1. Scoliosis 2. Elevation of the left hemidiaphragm 3. Subsegmental atelectatic changes at the left lung base 4. Increased markings within the right mid to lower lung zone. This could represent interstitial madyson a, and interstitial inflammatory processes, or be secondary to technical factors. A PA and lateral st udy could be obtained in follow-up is deemed clinically appropriate. Electronically signed by: Roly Cabrera M.D. 05/24/2019 2:41 PM
--- NOTE | 2019-05-24 14:53 | XRay Report ---
XR pelvis 1-2V routine CLINICAL HISTORY: FALL COMPARISON: None. DISCUSSION: The bones and joint spaces appear intact. There is no evidence of fracture, dislocation o r bony disease. There is no evidence for soft tissue swelling. IMPRESSION: Negative study. The above report was generated using voice recognition software. It may contain grammatical, syntax or spelling errors. Electronically signed by: Memo Castillo M.D. 05/24/2019 2:52 PM
--- NOTE | 2019-05-24 17:14 | Emergency Department Note ---
Entered by Camille Salinas acting as a scribe for History of Present Illness General Chief complaint: Fall Time Seen by Provider: 05/24/19 13:04 Source: patient and EMS Mode of arrival: EMS Limitations: no limitations History of Present Illness Onset (ago): day(s) 3 Radiation: non-radiation Pain Consistency: + intermittent Maximum Pain Intensity: 8 Current Pain Intensity: 8 Relieved By: + none Exacerbated By: + none Associated symptoms: + nausea/vomiting and + other (+left arm pain, +neck pain, +bilateral hip pain) Treatments prior to arrival: none The patient is a 63 year old male who presents to the ED with complaints of multiple recent falls. He was brought to the ED via EMS. He reports earlier today he fell while trying to use the bathroom at home. He complains of left arm pain, bilateral hip pain and neck pain. He is nauseous and vomited in the room. He does not wear Oxygen at home. Home Medications Home Medications Medication Instructions Recorded Confirmed Type naloxone 4 mg/actuation nasal spray 1 sprays INTNAS Q2M #2 ea 02/01/19 05/24/19 Rx acetaminophen [Mapap 650 mg PO Q6H PRN #15 tab 03/03/19 05/24/19 Rx (acetaminophen)] aluminum-magnesium hydroxide 15 ml PO 5XD PRN #100 ml 03/03/19 05/24/19 Rx [MAG-AL] bisacodyl 10 mg VT Q72H PRN #16 ea 03/03/19 05/24/19 Rx cholecalciferol (vitamin D3) 1,000 unit PO QAM #30 tab 03/03/19 05/24/19 Rx [Vitamin D3] enoxaparin 40 mg SUBCUT Q24H #10 ml 03/03/19 05/24/19 Rx lidocaine 1 patch TRANSDERMAL QAM #30 ea 03/03/19 05/24/19 Rx polyethylene glycol 3350 [Miralax] 17 g PO DAILY #30 ea 03/03/19 05/24/19 Rx gabapentin 100 mg capsule 100 mg PO TID #90 cap 03/17/19 05/24/19 Rx atorvastatin 10 mg tablet 10 mg PO DAILY #30 tab 03/23/19 05/24/19 Rx pantoprazole 40 mg tablet,delayed 40 mg PO QAM #30 tab 03/28/19 05/24/19 Rx release buspirone 15 mg tablet 15 mg PO TID #90 tab 03/29/19 05/24/19 Rx methylphenidate HCl 10 mg tablet 10 mg PO TID #84 tab 05/20/19 05/24/19 Rx alprazolam 0.5 mg tablet 0.5 mg PO TID PRN #90 tab 05/23/19 05/24/19 Rx methadone 10 mg tablet 10 mg PO Q8H PRN #90 tab 05/23/19 05/24/19 Rx oxycodone 5 mg tablet 5 mg PO Q8H PRN #90 tab 05/23/19 05/24/19 Rx furosemide 20 mg PO DAILY 05/24/19 05/24/19 History sennosides-docusate sodium 1 tab PO BID PRN 05/24/19 05/24/19 History [Senna-S] Allergies Allergy/AdvReac Type Severity Reaction Status Date / Time erythromycin base Allergy Intermediate Rash Verified 02/27/19 17:23 Past Med/Surg History Medical History Anxiety (Acute) Arthritis (Acute) Bilateral lower leg cellulitis (Resolved) Degenerative cervical spinal stenosis (Acute) Depression Hearing difficulty (Acute) Hyperlipidemia (Acute) Neuropathy Spinal stenosis Stomach ulcer (Resolved) Surgical History History of hernia repair History of oral surgery Family History Mother Anxiety Depression Cardiac disorder Hypertension Diabetes Mesothelioma Father Mesothelioma Diabetes Brother Diabetes Other No significant family history Social History Preferred Language: Thai Communication Ability: Effective Dog Raiser Required: No Beliefs That Will Affect Care: Rastafari Rastafari Beliefs: mormonism Current Living Situation: Alone Feels Safe at Home: Yes Smoking Status: Former smoker Second Hand Exposure: No ; Hx Alcohol Use: No Hx Substance Use: No Review of Systems See HPI for pertinent positives & negatives. and A total of 10 systems reviewed and were otherwise negative Physical Exam Vital Signs Vital Signs - 24 hr 05/24/19 13:09 05/24/19 13:10 05/24/19 13:42 Temperature 36.3 C L Temperature Source Oral Pulse Rate 87 87 Pulse Rate [Apical] Pulse Rhythm Regular Regular Pulse Rhythm [Apical] Pulse Strength [Apical] Respiratory Rate 16 16 Respiratory Effort / Characteristics Non-Labored Spontaneous Respiratory Depth Normal Respiratory Pattern Regular Blood Pressure 158/94 H Blood Pressure [Right Arm] Blood Pressure Mean 115 Blood Pressure Mean [Right Arm] Pulse Oximetry 86 L 93 93 Oxygen Delivery Method Room Air Nasal Cannula Nasal Cannula Oxygen Flow Rate 4 2 Sepsis Recent Fever Within 48 Hours No Sepsis New/Unexplained Change in Mental Status No Sepsis Action Taken by Nursing No Action Required 05/24/19 14:30 05/24/19 16:00 05/24/19 17:00 Temperature Temperature Source Pulse Rate Pulse Rate [Apical] 88 92 H 91 H Pulse Rhythm Pulse Rhythm [Apical] Regular Regular Regular Pulse Strength [Apical] Normal Respiratory Rate 16 16 16 Respiratory Effort / Characteristics Spontaneous Non-Labored Spontaneous Non-Labored Spontaneous Respiratory Depth Normal Normal Respiratory Pattern Regular Regular Regular Blood Pressure Blood Pressure [Right Arm] 124/84 123/78 129/82 Blood Pressure Mean Blood Pressure Mean [Right Arm] 97 93 97 Pulse Oximetry 96 96 97 Oxygen Delivery Method Nasal Cannula Nasal Cannula Nasal Cannula Oxygen Flow Rate 3 3 3 Sepsis Recent Fever Within 48 Hours Sepsis New/Unexplained Change in Mental Status Sepsis Action Taken by Nursing 05/24/19 18:00 Temperature Temperature Source Pulse Rate Pulse Rate [Apical] 89 Pulse Rhythm Pulse Rhythm [Apical] Regular Pulse Strength [Apical] Respiratory Rate 16 Respiratory Effort / Characteristics Respiratory Depth Normal Respiratory Pattern Blood Pressure Blood Pressure [Right Arm] 117/74 Blood Pressure Mean Blood Pressure Mean [Right Arm] 88 Pulse Oximetry 97 Oxygen Delivery Method Nasal Cannula Oxygen Flow Rate 4 Sepsis Recent Fever Within 48 Hours Sepsis New/Unexplained Change in Mental Status Sepsis Action Taken by Nursing Vital signs reviewed. General: Well-appearing 65 year old male, in no significant distress. HEENT: No scleral icterus, PERRLA, neck supple. Atraumatic. Cardiovascular: Regular rate and rhythm, no extra sounds. Pulmonary: Clear to auscultation bilaterally, normal work of breathing. Abdomen: Soft, nontender, nondistended, positive bowel sounds. Musculoskeletal: Tender to palpation over left scapular edge, no pain to palpation over cervical spine. Atraumatic, no peripheral edema. Neurologic: Patient awake alert and oriented x 3, full strength in all 4 extremities. Cranial nerves 2 through 12 grossly intact. Skin: Warm, dry, no rash Course Course 1333: The patient was evaluated in room B9 and a complete history and physical were performed. 1710: Case Management is calling the patients living facility to see if someone can come pick him up. 1800: This patient is a sign out to Dr. Taylor at the end of my shift. Administered Medications Discontinued Medications Ondansetron HCl (Zofran) 4 mg IV NOW STA Stop: 05/24/19 13:40 Last Admin: 05/24/19 13:52 Dose: 4 mg Documented by: [id number] Medical Decision Making Differential Diagnosis Differential diagnoses include major intracranial, cervical, spinal, thoracic, abdominal, pelvic and neurologic injury. Fracture, contusion, sprain, strain, laceration, abrasions included as well. Medical Records Attestation: I reviewed the patient's medical records. Home Medications Current Medication List: was personally reviewed by me Laboratory Data Attestation: I reviewed the patient's lab results. Result diagrams: 05/24/19 13:42 05/24/19 13:42 Lab Results 05/24/19 05/24/19 05/24/19 Range/Units 13:42 13:42 13:53 WBC 7.30 (4.8-10.8) K/uL RBC 5.08 (4.7-6.1) M/uL Hgb 16.4 (14.0-18.0) g/dL Hct 48.3 (42-52) % MCV 95.1 (80-100) fL MCH 32.3 (25-34) pg MCHC 34.0 (32-36) g/dL RDW Std Deviation 48.5 H (36.4-46.3) fL RDW Coeff of Stephen 13.8 (11.5-14.5) % Plt Count 207 (130-400) K/uL MPV 9.9 (7.4-10.4) fL Immature Gran % (Auto) 0.3 % Neut % (Auto) 64.6 % Lymph % (Auto) 27.1 % Ford % (Auto) 6.2 % Eos % (Auto) 1.5 % Baso % (Auto) 0.3 % Immature Gran # (Auto) 0.02 (0.00-0.02) K/uL Neut # (Auto) 4.72 (1.4-6.5) K/uL Lymph # (Auto) 1.98 (1.2-3.4) K/uL Ford # (Auto) 0.45 (0.11-0.59) K/uL Eos # (Auto) 0.11 (0-0.5) K/uL Baso # (Auto) 0.02 (0-0.2) K/uL Sodium 138 (136-145) mmol/L Potassium 4.1 (3.5-5.1) mmol/L Chloride 100 (98-107) mmol/L Carbon Dioxide 33 H (21-32) mmol/L Anion Gap 5.0 (3-11) BUN 11 (7-18) mg/dl Creatinine 0.81 (0.6-1.4) mg/dl Est Cr Clr Drug Dosing 87.2 ml/min Est GFR ( Amer) 108.9 Est GFR (Non-Af Amer) 93.9 BUN/Creatinine Ratio 13.7 (10-20) Glucose 91 (70-99) mg/dl Calcium 9.1 (8.5-10.1) mg/dl Total Bilirubin 0.5 (0.2-1) mg/dl AST 25 (15-37) U/L ALT 19 (12-78) U/L Alkaline Phosphatase 93 (45-117) U/L Total Protein 7.8 (6.4-8.2) gm/dl Albumin 4.1 (3.4-5.0) gm/dl Globulin 3.7 (2.5-4.0) gm/dl Albumin/Globulin Ratio 1.1 (0.9-2) Urine Color Yellow Urine Appearance Clear (Clear) Urine pH 8.0 H (4.5-7.5) Ur Specific Calhoun 1.010 (1.000-1.030) Urine Protein Negative (Negative) Urine Glucose (UA) Negative (Negative) Urine Ketones Negative (Negative) Urine Blood Negative (Negative) Urine Nitrite Negative (Negative) Urine Bilirubin Negative (Negative) Urine Urobilinogen Negative (Negative) Ur Leukocyte Esterase Negative (Negative) Ethyl Alcohol mg/dL (0-3) mg/dl 05/24/19 Range/Units 14:34 WBC (4.8-10.8) K/uL RBC (4.7-6.1) M/uL Hgb (14.0-18.0) g/dL Hct (42-52) % MCV (80-100) fL MCH (25-34) pg MCHC (32-36) g/dL RDW Std Deviation (36.4-46.3) fL RDW Coeff of Stephen (11.5-14.5) % Plt Count (130-400) K/uL MPV (7.4-10.4) fL Immature Gran % (Auto) % Neut % (Auto) % Lymph % (Auto) % Ford % (Auto) % Eos % (Auto) % Baso % (Auto) % Immature Gran # (Auto) (0.00-0.02) K/uL Neut # (Auto) (1.4-6.5) K/uL Lymph # (Auto) (1.2-3.4) K/uL Ford # (Auto) (0.11-0.59) K/uL Eos # (Auto) (0-0.5) K/uL Baso # (Auto) (0-0.2) K/uL Sodium (136-145) mmol/L Potassium (3.5-5.1) mmol/L Chloride (98-107) mmol/L Carbon Dioxide (21-32) mmol/L Anion Gap (3-11) BUN (7-18) mg/dl Creatinine (0.6-1.4) mg/dl Est Cr Clr Drug Dosing ml/min Est GFR ( Amer) Est GFR (Non-Af Amer) BUN/Creatinine Ratio (10-20) Glucose (70-99) mg/dl Calcium (8.5-10.1) mg/dl Total Bilirubin (0.2-1) mg/dl AST (15-37) U/L ALT (12-78) U/L Alkaline Phosphatase (45-117) U/L Total Protein (6.4-8.2) gm/dl Albumin (3.4-5.0) gm/dl Globulin (2.5-4.0) gm/dl Albumin/Globulin Ratio (0.9-2) Urine Color Urine Appearance (Clear) Urine pH (4.5-7.5) Ur Specific Calhoun (1.000-1.030) Urine Protein (Negative) Urine Glucose (UA) (Negative) Urine Ketones (Negative) Urine Blood (Negative) Urine Nitrite (Negative) Urine Bilirubin (Negative) Urine Urobilinogen (Negative) Ur Leukocyte Esterase (Negative) Ethyl Alcohol mg/dL 249.0 H (0-3) mg/dl Imaging Data Radiologist's Impression: Radiology results as stated below per my review and the radiologist's interpretation: CT cervical spine wo con CLINICAL HISTORY: 63 years-old Male presenting with TRAUMA. TECHNIQUE: Multidetector CT of the cervical spine was performed without the use of intravenous contrast. IV contrast: None. One or more dose lowering techniques were used consistent with the principles of ALARA (as low as reasonably achievable), including automatic exposure control, mA or kV adjustment to individual patient size, and/or use of iterative reconstruction. COMPARISON: 02/27/2019. CT DOSE (mGy.cm): The estimated cumulative dose is 1380.87 mGy.cm. FINDINGS: Survival Equipment Repairer topogram: Unremarkable. Normal cervical lordosis. Trace retrolisthesis of C4 on C5. Vertebral bodies otherwise maintain normal height and alignment. Multilevel moderate to severe intervertebral disc height loss. Disc osteophyte complexes are noted to varying degrees at every level. Moderate posterior spondylitic spurring is greatest at C4-5 with resultant osseous spinal canal narrowing. Evaluation of the soft tissues of the spinal canal do not demonstrate further effacement. Degenerative changes of the atlantodental articulation. Uncovertebral hypertrophy and facet arthropathy results in multilevel osseous neural foraminal narrowing. No acute fracture or subluxation. Lung apices clear. Paraspinal soft tissues within normal limits. IMPRESSION: 1. No acute osseous injury. 2. Multilevel degenerative changes of the cervical spine with multilevel spinal canal and neural foraminal narrowing. Electronically signed by: Juan Bedoya M.D. 05/24/2019 2:14 PM XR chest 1V portable CLINICAL HISTORY: Pain status post trauma COMPARISON STUDY: 11/04/2018 FINDINGS: There is a thoracolumbar scoliosis. There is elevation of the right hemidiaphragm. No pneumothorax is visualized. Linear opacities the left lung base are atelectatic. There are increased markings within the right mid to lower lung zone. This could be related to technical factors, interstitial edema, or interstitial inflammatory process. If symptoms persist, a PA and lateral study should be considered in follow-up. IMPRESSION: 1. Scoliosis 2. Elevation of the left hemidiaphragm 3. Subsegmental atelectatic changes at the left lung base 4. Increased markings within the right mid to lower lung zone. This could represent interstitial edema, and interstitial inflammatory processes, or be secondary to technical factors. A PA and lateral study could be obtained in follow-up is deemed clinically appropriate. Electronically signed by: Roly Cabrera M.D. 05/24/2019 2:[address] head/brain wo con CLINICAL HISTORY: Head pain status post trauma COMPARISON STUDY: 02/27/2019 TECHNIQUE: Axial CT of the brain is performed from the vertex to the skull base. IV contrast was not administered for this examination. A dose lowering technique was utilized adhering to the principles of ALARA. CT DOSE: FINDINGS: No intra or extra-axial mass lesions are visualized. There is no CT evidence of acute cortical infarction. There is no evidence of midline shift. There is no acute hemorrhage. No calvarial fractures are visualized. Increased signal to the left of the german, likely represents the basal vein. There is no evidence of pathologic ventricular dilatation. There is no evidence of acute sinusitis IMPRESSION: No acute intracranial findings Electronically signed by: Roly Cabrera M.D. 05/24/2019 2:09 PM XR pelvis 1-2V routine CLINICAL HISTORY: FALL COMPARISON: None. DISCUSSION: The bones and joint spaces appear intact. There is no evidence of fracture, dislocation or bony disease. There is no evidence for soft tissue swelling. IMPRESSION: Negative study. The above report was generated using voice recognition software. It may contain grammatical, syntax or spelling errors. Electronically signed by: Memo Castillo M.D. 05/24/2019 2:52 PM ECG Data Attestation: I personally reviewed and interpreted this ECG as follows: Indication: + weakness Rate (beats per minute): 81 Rhythm: + normal sinus ECG Intervals/blocks: + Normal QT (is 425) ECG ST segments: no ST depression and no ST elevation ECG Findings: no PACs and no PVCs Blood Pressure Blood Pressure Findings: Normal blood pressure Blood Pressure Disposition: did not require urgent referral MDM Narrative This patient was evaluated and appeared to be in no significant distress. IV access was obtained and laboratory work was drawn. Patient was placed on the monitoring tech and found to be in normal sinus rhythm with stable vital signs. Head CT was performed and is negative for acute intracranial pathology. C ervical spine CT reveals no evidence of acute fracture. Chest x-ray and pelvis x-rays are negative for acute traumatic findings. Chest x-ray is significant for increased markings at the right lower lung zone. Patient's blood alcohol level is 250. He was observed in the emergency department for multiple hours pending a more sober state. Case management has been consulted to help arrange safe disposition. Case has been signed out at the change of shift awaiting final disposition. Patient was first seen at 1304 and observation began at 1342 and was necessary in order to determine a more sober state. Patient's son had been contacted who is currently away in [place] and felt there was nobody close family or friend to come pick the patient up. Patient was signed out at the change of shift to Dr. Taylor pending a final disposition. Impression & Plan Alcohol intoxication, Fall Discharge Plan Visit Data Chief Complaint: Fall ED Provider: Kylee Scott Discharge Problem: Alcohol intoxication, Fall Patient Disposition: Home - Self-Care Condition: Good Discharge Instructions Krames/Other Patient Handouts: ED Intoxication Alcohol, ED Head Injury Closed Activity Restrictions/Additional Instructions: Please read the head injury handout attached. Drink plenty of clear liquids, such as water or Gatorade. Tylenol 650 mg every 6 hours as needed for pain. Avoid excessive alcohol consumption. Follow-up with your primary care physician this week for reevaluation. Return to emergency for worsening of symptoms or medical concerns. Forms Stand Alone Forms: My [facility], Important Visit Information Prescriptions Prescriptions: No Action Narcan 4 mg/actuation spray,non-aerosol 1 sprays INTNAS Q2M Qty: 2 RF: 5 gabapentin 100 mg capsule 100 mg PO TID Qty: 90 RF: 5 atorvastatin 10 mg tablet 10 mg PO DAILY Qty: 30 RF: 5 pantoprazole 40 mg tablet,delayed release (DR/EC) 40 mg PO QAM Qty: 30 RF: 5 buspirone 15 mg tablet 15 mg PO TID Qty: 90 RF: 5 methylphenidate HCl 10 mg tablet 10 mg PO TID Qty: 84 RF: 0 alprazolam 0.5 mg tablet 0.5 mg PO TID PRN (Reason: anxiety) Qty: 90 RF: 0 methadone 10 mg tablet 10 mg PO Q8H PRN (Reason: Pain, Severe) Qty: 90 RF: 0 oxycodone 5 mg tablet 5 mg PO Q8H PRN (Reason: Pain, Severe) Qty: 90 RF: 0 acetaminophen [Mapap (acetaminophen)] 325 mg Tablet 650 mg PO Q6H PRN (Reason: Pain, Moderate) Qty: 15 RF: 0 enoxaparin 40 mg/0.4 mL Syringe 40 mg subcut Q24H Qty: 10 RF: 0 MAG-AL 200-200 mg/5 mL Suspension 15 ml PO 5XD PRN (Reason: Dyspepsia) Qty: 100 RF: 0 polyethylene glycol 3350 [Miralax] 17 gram Powder In Packet 17 g PO DAILY Qty: 30 RF: 3 lidocaine 5 % Adhesive Patch,Medicated 1 patch transdermal QAM Qty: 30 RF: 0 cholecalciferol (vitamin D3) [Vitamin D3] 1,000 unit (25 mcg) Tablet 1,000 unit PO QAM Qty: 30 RF: 0 bisacodyl 10 mg suppository 10 mg VT Q72H PRN (Reason: constipation) Qty: 16 RF: 0 furosemide 20 mg tablet 20 mg PO DAILY RF: 0 sennosides-docusate sodium [Senna-S] 8.6-50 mg tablet 1 tab PO BID PRN (Reason: Constipation) RF: 0 Referrals Referrals: Hernando Morelos III, MD [Primary Care Provider] - Discharge Problem: Alcohol intoxication Qualifiers: Complication of substance-induced condition: with unspecified complication Qualified Code(s): F10.929 - Alcohol use, unspecified with intoxication, unspecified Fall Qualifiers: Encounter type: initial encounter Qualified Code(s): W19.XXXA - Unspecified fall, initial encounter The scribe's documentation has been prepared under my direction and personally reviewed by me in its entirety. I confirm that the note above accurately reflects all work, treatment, procedures, and medical decision making performed by me.
--- NOTE | 2019-05-24 18:32 | Emergency Department Note ---
ED Visit Note The patient was taken in signout from Dr. Scott at the change of shift. Please see that note for details. The patient was pending clearance of his alcohol intoxication. Blood work, urinalysis, CT imaging and chest x-ray were negative for acute process except for a significant elevation of blood alcohol level. The patient was observed. His alcohol intoxication should have cleared. When he was reassessed he was still requiring supplemental oxygen. He was resting. He was arousable but still very lethargic. He complained of diffuse pain everywhere. The patient was not moving his left leg. There was concerns with his fall that he may have injured his back or possibly suffered a CVA/TIA. He had significant weakness in the left leg. The patient was ordered for MR brain imaging as well as CT of the lumbar spine. Consultation was made with internal medicine. CT imaging of the lumbar spine revealed spinal stenosis but no fracture or dislocation. The case was discussed with Dr. Maico Steel. He was evaluated by the team and admitted. MR imaging of the brain did not reveal any acute CVA or traumatic findings. Prior to admission the patient was reassessed and he was still weak in the left leg but was moving it more appropriately. OBSERVATION NOTE: Indication: Trauma and alcohol intoxication Patient, with multiple falls and a blood alcohol level over 3 times the legal limit and hypertension family History, was first seen by Dr. Scott at 1304 hrs and the observation time began at 1342 hrs and was necessary in order to determine extent of intoxication and injury and avoid unnecessary admission . Upon re-evaluation, 7.25 hours of observation revealed that the patient should be admitted. Disposition date and time 2100. . : Alcohol intoxication Qualifiers: Complication of substance-induced condition: with unspecified complication Qualified Code(s): F10.929 - Alcohol use, unspecified with intoxication, unspecified Fall Qualifiers: Encounter type: initial encounter Qualified Code(s): W19.XXXA - Unspecified fall, initial encounter
[2019-05-24 18:52] LABS: Amphetamines+Metham, Urine Neg (Neg); Barbiturates, Urine Neg (Neg); Benzodiazepine, Urine Pos (Neg); Cocaine, Urine Neg (Neg); MDMA (Ecstacy), Urine Neg (Neg); Methadone, Urine Pos (Neg); Opiate, Urine Neg (Neg); Phencyclidine, Urine Neg (Neg)
--- NOTE | 2019-05-24 21:27 | CT Scan Report ---
CT OF THE LUMBAR SPINE WITHOUT CONTRAST CLINICAL HISTORY: Fall. Left leg weakness. COMPARISON STUDY: CT of the abdomen and pelvis February 27, 2019. TECHNIQUE: Axial images of the lumbar spine were obtained without IV contrast. Sagittal and coronal r econstructions were viewed. FINDINGS: For purposes of numbering on this exam, the L5-S1 disc space is assigned to axial image 326 of 405. There is straightening of the normal lumbar lordosis as well as mild S-shaped curvature of t he lower thoracic and lumbar spine. No acute fracture is noted. A bone island within the L4 vertebral body is noted. No suspicious osseous lesions are present. Central canal and neural foramen are subop timally assessed by CT. There is marked disc space narrowing at L2-L3. There is moderate to severe ce ntral canal stenosis at this level. Moderate to severe central canal stenosis at L3-L4 is noted. Ther e is severe multilevel facet arthrosis. Moderate to severe multilevel neural foraminal stenosis is no aren. IMPRESSION: 1. No acute lumbar spine fracture or subluxation. 2. Multilevel degenerative disc disease and facet arthrosis. Suboptimal evaluation of the central can al and neural foramen given CT technique however suspected moderate to severe central canal stenosis at L2-L3 and L3-L4 with multilevel neural foraminal stenosis. Electronically signed by: Mode Real M.D. 05/24/2019 9:25 PM
--- NOTE | 2019-05-24 22:51 | History & Physical Report ---
Date of Service May 24, 2019 Assessment & Plan (1) Fall: 63 yo afebrile M w/ PMHx. Of ETOH abuse, fall, opioid dependence, chronic pain, cervical spinal stenosis, anxiety, neuropathy, hyperlipidemia and lower back pain presented for fall and found to have low oxygen saturation, and doran sient weakness of unilateral leg. Hypoxemia likely 2/2 opioid and ETOH depression, rule out aspiration PNA - Patient afebrile w/ nl. WBC, nl. HR - CT chest shows: No acute process within the chest. Segmental left lower lobe opacity with volume loss which favors atelectasis. Moderate elevation of the left hemidiaphragm which is unchanged. - afebrile, normal HR, VS and labs for signs of infection and have a low threshold to treat given new oxygen requirement Opioid dependence - Currently on methadone 10 mg PO Q8H PRN - continue Narcan PRN Concern for TIA w/ transient unilateral leg weakness - MRI brain negative - Neurology consulted per stroke protocol - continue to access per protocol - continue home Statin - started ASA 81 mg ETOH intoxication - Ethyl Alcohol 249 - [facility] protocol in place Chronic pain - seen by pain management with Dr. Shannan Servin on 03/01 - CT spine multilevel degenerative disease of the lumbar spine - Acetaminophen 650 mg Q6H PRN - Lidocaine 5% patch transdermal QAM - Oxycodone 5 mg PO Q8H PRN - PEG 17 mg PO daily, Senna 8.6-50 mg PO BID PRN for constipation Fall likely mechanical 2/2 ETOH - PT & OT order placed - discharge planning order placed Neuropathy - Gabapentin 100 mg PO TID Anxiety - continue Alprazolam 0.5 mg PO TID PRN Code status: full code DVT: Enoxaparin 40 mg SQ Q24 Diet: regular Disposition: med/surg w/ tele (2) Alcohol intoxication: (3) Anxiety and depression: (4) Protein malnutrition: (5) Opioid dependence: (6) Bradycardia, sinus: (7) Chronic pain: (8) Arthritis: (9) Neuropathy: (10) Spinal stenosis: History of Present Illness Chief Complaint: Fall Primary Care Provider: Hernando Morelos MD 63 yo afebrile M here for fall, found to have low oxygen saturation (86%) concern for aspiration. The patient moved to the area from [place] in late 2017. He moved into the [facility]. When I talked with him today he stated that he was hurting, but did not respond to my other questions. Tox. Screen: Methadone +, Benzodiazepines +, ethyl Alcohol [address] Spine: Multilevel degenerative disc disease and facet arthrosis, suboptimal evaluation of the central canal and neural foramen given CT technique however suspected moderate to severe central canal stenosis at L2-3 & L3-4 w/ multilevel neural foramina stenosis Allergies Allergy/AdvReac Type Severity Reaction Status Date / Time erythromycin base Allergy Intermediate Rash Verified 02/27/19 17:23 Home Medications Home Medications Medication Instructions Recorded Confirmed Type naloxone 4 mg/actuation nasal spray 1 sprays INTNAS Q2M #2 ea 02/01/19 05/24/19 Rx acetaminophen [Mapap 650 mg PO Q6H PRN #15 tab 03/03/19 05/24/19 Rx (acetaminophen)] aluminum-magnesium hydroxide 15 ml PO 5XD PRN #100 ml 03/03/19 05/24/19 Rx [MAG-AL] bisacodyl 10 mg NH Q72H PRN #16 ea 03/03/19 05/24/19 Rx cholecalciferol (vitamin D3) 1,000 unit PO QAM #30 tab 03/03/19 05/24/19 Rx [Vitamin D3] enoxaparin 40 mg SUBCUT Q24H #10 ml 03/03/19 05/24/19 Rx lidocaine 1 patch TRANSDERMAL QAM #30 ea 03/03/19 05/24/19 Rx polyethylene glycol 3350 [Miralax] 17 g PO DAILY #30 ea 03/03/19 05/24/19 Rx gabapentin 100 mg capsule 100 mg PO TID #90 cap 03/17/19 05/24/19 Rx atorvastatin 10 mg tablet 10 mg PO DAILY #30 tab 03/23/19 05/24/19 Rx pantoprazole 40 mg tablet,delayed 40 mg PO QAM #30 tab 03/28/19 05/24/19 Rx release buspirone 15 mg tablet 15 mg PO TID #90 tab 03/29/19 05/24/19 Rx methylphenidate HCl 10 mg tablet 10 mg PO TID #84 tab 05/20/19 05/24/19 Rx alprazolam 0.5 mg tablet 0.5 mg PO TID PRN #90 tab 05/23/19 05/24/19 Rx methadone 10 mg tablet 10 mg PO Q8H PRN #90 tab 05/23/19 05/24/19 Rx oxycodone 5 mg tablet 5 mg PO Q8H PRN #90 tab 05/23/19 05/24/19 Rx furosemide 20 mg PO DAILY 05/24/19 05/24/19 History sennosides-docusate sodium 1 tab PO BID PRN 05/24/19 05/24/19 History [Senna-S] Past Med/Surg History Medical History Anxiety (Acute) Arthritis (Acute) Bilateral lower leg cellulitis (Resolved) Degenerative cervical spinal stenosis (Acute) Depression Hearing difficulty (Acute) Hyperlipidemia (Acute) Neuropathy Spinal stenosis Stomach ulcer (Resolved) Surgical History History of hernia repair History of oral surgery Family History Mother Anxiety Depression Cardiac disorder Hypertension Diabetes Mesothelioma Father Mesothelioma Diabetes Brother Diabetes Other No significant family history Social History Preferred Language: Finnish Communication Ability: Effective 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: No Beliefs That Will Affect Care: Restorationist Restorationist Beliefs: SIKH marital status: Single Current Living Situation: Other Current Living Situation Comment: [facility] Other Information That Helps Us Care for You: No Feels Safe at Home: Yes Smoking Status: Former smoker Second Hand Exposure: No ; Hx Alcohol Use: Yes Hx Substance Use: Yes substance use type: does not use Last Used Substance Other:: opiod dependence on methadone Review of Systems Review of Systems: Unobtainable due to cognitive status Physical Exam Constitutional: + thin Eyes: PERRL, conjunctivae normal, anicteric sclerae Neck: normal visual inspection Respiratory: normal respiratory effort, lungs clear to auscultation Cardiovascular: RRR, no murmur, no edema Gastrointestinal (Abdomen): normal bowel sounds, soft, nontender, no hepatosplenomegaly Musculoskeletal: no cyanosis or clubbing, extremities motor strength 5/5 Skin: no rashes, warm and dry Neurologic: CN's II-XI intact bilaterally Psychiatric: Orientation: + not alert and + not oriented x 3 Affect: + depressed affect Lymphatic: no cervical lymphadenopathy Results & Data Vital Signs (Past 12 Hours) Vital Signs Temp Pulse Pulse Resp BP BP Pulse Ox 05/24/19 21:00 89 16 134/78 94 05/24/19 19:59 78 17 112/67 85 L 05/24/19 19:20 82 14 106/82 97 05/24/19 18:00 89 16 117/74 97 05/24/19 17:00 91 H 16 129/82 97 05/24/19 16:00 92 H 16 123/78 96 05/24/19 14:30 88 16 124/84 96 05/24/19 13:42 87 16 93 05/24/19 13:10 93 05/24/19 13:09 36.3 C L 87 16 158/94 H 86 L Code Status & VTE Plan VTE Prophylaxis Plan VTE Prophylaxis will be ordered: Yes Supervising Physician Co-Signing Physician Notes Attending addendum: I have physically seen this patient, have supervised the medical residents activities, and agree with the H&P unless as otherwise noted. Assessment and Plan: Hypoxemia- Associate with alcohol use and opioid use. CT of chest negative for aspiration. May be secondary to atelectasis and decreased expiratory excursion due to sedation. Duonebs every 4 hours while awake and every 2 hours when necessary.. Transient left leg weakness reported by ED staff- MRI brain negative for acute findings. Question whether effort related due to sedation, actual TIA, or spine pathology. Admit and have neurology see. Alcohol intoxication- Alcohol level [address] on [facility] protocol Remainder of orders and notations as noted Resident Activity Tracking Resident Involvement: Resident Care Provided Care Provided: Adult Hospital Medicine (1) Alcohol intoxication Complication of substance-induced condition: with unspecified complication Q ualified Code(s): F10.929 - Alcohol use, unspecified with intoxication, unspecified (2) Fall Encounter type: initial encounter Qualified Code(s): W19.XXXA - Unspecified fall, initial encounter
--- NOTE | 2019-05-24 22:53 | CT Scan Report ---
CT OF THE CHEST WITHOUT IV CONTRAST CLINICAL HISTORY: Hypoxemia. COMPARISON STUDY: Chest CT February 27, 2019. Chest radiograph performed earlier today. CT DOSE: 195.94 mGy.cm TECHNIQUE: Axial images of the chest were obtained without IV contrast. Images were reviewed in the axial, sagittal, and coronal planes. IV contrast was not administered for this examination. Automat ed exposure control was utilized for the study. A dose lowering technique was utilized adhering to t he principles of ALARA. FINDINGS: Moderate elevation of the left hemidiaphragm is unchanged. S-shaped scoliosis of thoracolu mbar spine is again noted. No pneumothorax or pleural effusion is noted. Segmental left lower lobe op acity is unchanged. This favors atelectasis. There is no consolidation to suggest pneumonia. Subsegme ntal right lower lobe and lingular atelectasis is also present. The central airways are patent. Multi ple old left rib fractures are noted. Size of the heart is normal. There is no pericardial effusion. No enlarged thoracic lymph nodes are present. IMPRESSION: 1. No acute process within the chest. 2. Segmental left lower lobe opacity with volume loss which favors atelectasis. 3. Moderate elevation of the left hemidiaphragm which is unchanged. Electronically signed by: Mode Real M.D. 05/24/2019 10:52 PM
--- NOTE | 2019-05-24 23:06 | Magnetic Resonance Report ---
MRI OF THE BRAIN WITHOUT CONTRAST CLINICAL HISTORY: Fall. Left leg weakness. COMPARISON STUDY: Head CT February 27, 2019 and May 24, 2019. TECHNIQUE: Utilizing a 1.5 Ines magnet and dedicated coil, multiplanar, multiecho imaging of the bra in was performed without IV contrast. FINDINGS: There are no foci of restricted diffusion to suggest acute infarct. No acute intracranial h emorrhage, midline shift or mass effect is present. Brain volume is normal for age. Ventricular syste m is unremarkable. The basilar cisterns are patent. There are no extra-axial collections. No intracra nial masses identified on this unenhanced exam. Flow-voids for the major intracranial vessels are pre sent. Calvarial signal is unremarkable. Orbits are unremarkable. IMPRESSION: No acute intracranial findings. Electronically signed by: Mode Real M.D. 05/24/2019 11:04 PM
[2019-05-24] MEDS ORDERED: ALUMINUM/MAGNESIUM SUSP 30 ML UDC PO PRN (23:27)
[2019-05-24] MEDS ORDERED: MULTI-VITAMIN INFUSION 10 ML, THIAMINE HCL 100 MG, FOLIC ACID 1 MG in SODIUM CHLORIDE 0... IV ONE (23:27)
[2019-05-24] MEDS ORDERED: LORazepam 1 MG TAB PO PRN (23:27)
[2019-05-24] MEDS ORDERED: BISACODYL 10 MG SUPP PR PRN (23:27)
[2019-05-24] MEDS ORDERED: PHARMACIST DISCHARGE MED REC CONSULT PRN (23:27)
[2019-05-24] MEDS ORDERED: DOCUSATE SODIUM/SENNA 50/8.6MG TAB PO PRN (23:27)
[2019-05-25] MEDS: ACETAMINOPHEN 325 MG TAB PO PRN ×2 (00:06→09:03)
[2019-05-25] MEDS ORDERED: NALOXONE HCL 0.4 MG/1 ML VIAL/CARP ONE (00:18)
[2019-05-25] MEDS: NALOXONE INTNAS SCH ×7 (00:37→15:41)
[2019-05-25] MEDS: OXYCODONE HCL IR 5 MG TAB (IMMEDIATE RELEASE) PO PRN ×3 (06:05→23:29)
[2019-05-25 07:50] LABS: Estimated Average Glucose 103 mg/dl; Hemoglobin A1C 5.2 % (4.5-5.6)
[2019-05-25 07:56] LABS: Albumin Level 3.5 gm/dl (3.4-5.0); Bilirubin Direct 0.2 mg/dl (0-0.2); Calcium 8.2 mg/dl (8.5-10.1); Creatinine Clr Calc Pharmacy 94.7 ml/min; Est GFR (African American) 117.7; Est GFR (Non-African American) 101.5; Potassium 3.8 mmol/L (3.5-5.1)
[2019-05-25 07:59] LABS: Albumin Globulin Ratio 1.1 (0.9-2); Bilirubin,Total 0.8 mg/dl (0.2-1); Globulin 3.2 gm/dl (2.5-4.0); Total Protein 6.7 gm/dl (6.4-8.2)
[2019-05-25 08:18] LABS: Folate (Folic Acid) > 24.00 ng/ml (>5.38); Vitamin B12 494 pg/ml (211-911)
[2019-05-25] MEDS ORDERED: GABAPENTIN 100 MG CAP PO SCH (09:00)
[2019-05-25] MEDS ORDERED: ASPIRIN 81 MG ECTAB PO SCH (09:00)
[2019-05-25] MEDS: PANTOprazole 40 MG TAB PO SCH (09:04)
[2019-05-25] MEDS: FUROSEMIDE 20 MG TAB PO SCH (09:04)
[2019-05-25] MEDS: CHOLECALCIFEROL 1,000 UNITS TAB PO SCH (09:04)
[2019-05-25] MEDS: THIAMINE HCL 100 MG TAB PO SCH (09:04)
[2019-05-25] MEDS: ATORVASTATIN 10 MG TAB PO SCH (09:04)
[2019-05-25] MEDS: FOLIC ACID 1 MG TAB PO SCH (09:04)
[2019-05-25] MEDS: BusPIRone 15 MG TAB PO SCH ×3 (09:04→20:21)
[2019-05-25] MEDS: POLYETHYLENE (MIRALAX) 17 GM PACK PO SCH ×2 (09:05→23:36)
[2019-05-25] MEDS: ENOXAPARIN INJ 40 MG/0.4 ML SYR SQ SCH (09:05)
[2019-05-25] MEDS: LIDOCAINE 5% 1 PATCH TD SCH (09:05)
--- NOTE | 2019-05-25 09:06 | Discharge Summary ---
Date of Service May 25, 2019 Admission HPI Per Admitting Provider 63 yo afebrile M here for fall, found to have low oxygen saturation (86%) concern for aspiration. The patient moved to the area from [place] in late 2017. He moved into the [facility]. When I talked with him today he stated that he was hurting, but did not respond to my other questions. Tox. Screen: Methadone +, Benzodiazepines +, ethyl Alcohol [address] Spine: Multilevel degenerative disc disease and facet arthrosis, suboptimal evaluation of the central canal and neural foramen given CT technique however suspected moderate to severe central canal stenosis at L2-3 & L3-4 w/ multilevel neural foramina stenosis Discharge Data Allergies Allergy/AdvReac Type Severity Reaction Status Date / Time erythromycin base Allergy Intermediate Rash Verified 02/27/19 17:23 Consultations 05/24/19 20:52 ED Decision to Admit Stat 05/24/19 23:27 Consult Case Management - Discharge Planning Routine Consult Case Management - Discharge Planning Routine Consult Neurology Routine Ordered Studies 05/24/19 13:37 CT cervical spine wo con Stat CT head/brain wo con Stat 05/24/19 20:52 CT lumbar spine wo con Stat MR brain wo con Stat 05/24/19 21:44 CT chest wo con Stat Discharge Plan Discharge Items Reason For Visit: hypoxia, TIA r/o Condition on Discharge: Good Medications and DC Order Prescriptions: No Action Narcan 4 mg/actuation spray,non-aerosol 1 sprays INTNAS Q2M Qty: 2 RF: 5 gabapentin 100 mg capsule 100 mg PO TID Qty: 90 RF: 5 atorvastatin 10 mg tablet 10 mg PO DAILY Qty: 30 RF: 5 pantoprazole 40 mg tablet,delayed release (DR/EC) 40 mg PO QAM Qty: 30 RF: 5 buspirone 15 mg tablet 15 mg PO TID Qty: 90 RF: 5 methylphenidate HCl 10 mg tablet 10 mg PO TID Qty: 84 RF: 0 alprazolam 0.5 mg tablet 0.5 mg PO TID PRN (Reason: anxiety) Qty: 90 RF: 0 methadone 10 mg tablet 10 mg PO Q8H PRN (Reason: Pain, Severe) Qty: 90 RF: 0 oxycodone 5 mg tablet 5 mg PO Q8H PRN (Reason: Pain, Severe) Qty: 90 RF: 0 acetaminophen [Mapap (acetaminophen)] 325 mg Tablet 650 mg PO Q6H PRN (Reason: Pain, Moderate) Qty: 15 RF: 0 enoxaparin 40 mg/0.4 mL Syringe 40 mg subcut Q24H Qty: 10 RF: 0 MAG-AL 200-200 mg/5 mL Suspension 15 ml PO 5XD PRN (Reason: Dyspepsia) Qty: 100 RF: 0 polyethylene glycol 3350 [Miralax] 17 gram Powder In Packet 17 g PO DAILY Qty: 30 RF: 3 lidocaine 5 % Adhesive Patch,Medicated 1 patch transdermal QAM Qty: 30 RF: 0 cholecalciferol (vitamin D3) [Vitamin D3] 1,000 unit (25 mcg) Tablet 1,000 unit PO QAM Qty: 30 RF: 0 bisacodyl 10 mg suppository 10 mg DE Q72H PRN (Reason: constipation) Qty: 16 RF: 0 furosemide 20 mg tablet 20 mg PO DAILY RF: 0 sennosides-docusate sodium [Senna-S] 8.6-50 mg tablet 1 tab PO BID PRN (Reason: Constipation) RF: 0 Admission Data Admit Date/Time: 05/24/19 23:27 Attending Provider: Jesus Sanchez Admit Provider: Maico Steel Primary Care Provider: Hernando Morelos III Other Providers: Maico Steel ; Becca Goodwin
[2019-05-25] MEDS: METHYLPHENIDATE HCL 10 MG TABLET PO SCH ×3 (09:10→20:22)
[2019-05-25] MEDS ORDERED: KETOROLAC TROMETHAMINE 10 MG TABLET PO STA (10:33)
--- NOTE | 2019-05-25 11:38 | Hospitalist Progress Note ---
Date of Service May 25, 2019 Assessment & Plan (1) Fall: 63 yo afebrile M w/ PMHx. Of ETOH abuse, fall, opioid dependence, chronic pain, cervical spinal stenosis, anxiety, neuropathy, hyperlipidemia and lower back pain presented for fall and found to have low oxygen saturation, and doran sient weakness of unilateral leg. Hypoxemia likely 2/2 opioid and ETOH depression, rule out aspiration PNA - Patient afebrile w/ nl. WBC, nl. HR 76. - CT chest shows: No acute process within the chest. Segmental left lower lobe opacity with volume loss which favors atelectasis. Moderate elevation of the left hemidiaphragm which is unchanged. - pt's O2 requirement back to baseline, expect hypoxia due to mixing of opiates and alcohol before arriving to the hospital. Opioid dependence - Currently on methadone 10 mg PO Q8H PRN, oxycodone 5mg PO q8h. - continue Narcan PRN . Concern for TIA w/ transient unilateral leg weakness - MRI brain negative. - pt's weakness convoluted by pain, pt at baseline t this time. - started ASA 81 mg. ETOH intoxication - Ethyl Alcohol 249 - [facility] protocol in place Chronic pain - seen by pain management with Dr. Shannan Servin on 03/01 - CT spine multilevel degenerative disease of the lumbar spine - Acetaminophen 650 mg Q6H PRN - Lidocaine 5% patch transdermal QAM - Oxycodone 5 mg PO Q8H PRN - PEG 17 mg PO daily, Senna 8.6-50 mg PO BID PRN for constipation - performed OMT today on patient at level of cervical and pelvic regions Fall likely mechanical 2/2 ETOH - PT & OT order placed Neuropathy - Gabapentin increased to 300 mg PO TID due to neuropathic pain Anxiety - continue Alprazolam 0.5 mg PO TID PRN Code status: full code DVT: Enoxaparin 40 mg SQ Q24 Diet: regular Disposition: med/surg w/ tele (2) Alcohol intoxication: (3) Anxiety and depression: (4) Protein malnutrition: (5) Opioid dependence: (6) Bradycardia, sinus: (7) Chronic pain: (8) Arthritis: (9) Neuropathy: (10) Spinal stenosis: Supervising Physician Co-Signing Physician Notes I personally examined the patient and verified all parkinson points of history and exam, discussed case, and agree with decision making with Dr Kent. Still feeling fairly sick. Sick to his stomach. Was able to eat but now is feeling kind like is going to vomit. He also has a headache which he relates to having fallen and hit his head. He has chronic back pain which is his most severe pain. When asking what the worst of his pain is right now between everywhere it hurts, he notes his back, he also notes this about how he always feels. Notes he is been struggling with weaning medications but is been trying to do as he is told. Pain in his back is mostly in his low back and buttocks without much of any leg radiation. He does note that his spine surgeon feels that C-spine decompressive surgery and a lumbar surgery may help his symptoms some. Vitals noted, in general he is awake and alert fatigued appearing but otherwise in no distress. HEENT normocephalic atraumatic mucous membranes moist. Breath ing unlabored no accessory muscle use good effort. Osteopathic/musculoskeletal exam shows left greater than right suboccipital musculature to be high in tone, tender, decreased range of motioninhibitory pressure done by both myself and Dr. Kent with some improvement in tissue texture. In the pelvic region bilateral left probably worse than right but both fairly bad piriformis region musculature high in tone, tender, decreased range of motionligamentous articular strain done by myself with improvement in tissue texture. Patient tolerated well, and remarked that he seemed surprised that he was able to find exactly the right spot where he hurt. Fallhis home meds plus rather significant alcohol intoxication plus general frailty. Fortunately he does not seem to have suffered any significant trauma. He still feels unsteady on his feetcontinue supportive care, PT/OT eval and treat, he might need rehab depending on their evaluation findings Headachefortunately no signs or symptoms of a bleed, he is neurologically intact and mentally sound. Certainly some of it is probably simply from the force of hitting his head, but he also does have suboccipital tension headache. OMT done as above. Chronic back painwhile he does have the disc disease, which is probably a bit of a driving factor, the bulk of what he is describing as his pain sounds extremely biomechanical. Initiated a trial of OMT, although given his pains been going on for the better part of 7 or more years I doubt that we will see significant improvement until he has had a steady trial of OMT for a few months. Discussed looking at his pain in a multifaceted approachwith some of the pain being from the bones and discs, some of the pain being from the muscles and ligaments, and some of the pain being from facilitated peripheral and central nervous system. Ongoing follow-up with surgery for the bone/disc portion, trial of OMT for the musculoskeletal portion, increase and titrate up with gabapentin for PTNS portion, as well as consider SNRI or tricyclic for the NET MAKER portion. Nauseanonspecific. Supportive care. Somatic dysfunction cervical and pelvic regionsOMT as above Otherwise as above Subjective Pt without acute events overnight. Still with some nausea but without vomiting. Headache at back of neck. Feels unsteady when going from the bed to the chair. Review of Systems Constitutional: no fever and no chills Respiratory: no cough, no dyspnea and no wheezing Cardiovascular: no chest pain, no syncope and no edema Gastrointestinal: + nausea; no abdominal pain, no vomiting, no constipation and no diarrhea/loose stools Musculoskeletal: + back pain and + neck pain Physical Exam Constitutional: WD/WN, vitals as above Neck: hypertonic paraspinal musculature in cervical spine Respiratory: normal respiratory effort, lungs clear to auscultation Cardiovascular: RRR, no murmur, no edema Gastrointestinal (Abdomen): normal bowel sounds, soft, nontender, no hepatospl enomegaly Skin: no rashes, warm and dry Psychiatric: A+Ox3, euthymic affect fixated on pain. Results & Data Vital Signs (Past 12 Hours) Vital Signs Temp Pulse Pulse Resp BP BP Pulse Ox 05/25/19 11: 36.5 C 87 16 129/67 94 05/25/19 10:05 91 05/25/19 07:49 94 H 05/25/19 07:31 36.7 C 94 H 20 128/77 95 05/25/19 03:37 36.6 C 96 H 18 106/61 92 05/25/19 01:44 87 05/24/19 23:59 Pulse Ox 05/25/19 11:19 05/25/19 10:05 05/25/19 07:49 05/25/19 07:31 05/25/19 03:37 05/25/19 01:44 05/24/19 23:59 94 Resident Activity Tracking Resident Involvement: Resident Care Provided Care Provided: Adult Hospital Medicine (1) Alcohol intoxication Complication of substance-induced condition: with unspecified complication Qualified Code(s): F10.929 - Alcohol use, unspecified with intoxication, unspecified (2) Fall Encounter type: initial encounter Qualified Code(s): W19.XXXA - Unspecified fall, initial encounter
[2019-05-25] MEDS ORDERED: ONDANSETRON INJ 2 MG/ML 2 ML VIAL IV PRN (12:52)
[2019-05-25] MEDS: FAMOTIDINE 20 MG TAB PO SCH ×2 (13:57→20:21)
[2019-05-25] MEDS: GABAPENTIN 300 MG CAP PO SCH ×2 (13:57→20:21)
--- NOTE | 2019-05-25 18:01 | Billing Data ---
Coding Level of Care Code 38344 Initial Inpt Care Lvl 3
--- NOTE | 2019-05-25 18:01 | Hospitalist Progress Note ---
Date of Service May 25, 2019 Results & Data Vital Signs (Past 12 Hours) Vital Signs Temp Pulse Pulse Resp BP BP Pulse Ox 05/25/19 16:00 05/25/19 15:30 97.9 F 76 18 101/65 92 05/25/19 11:19 97.7 F 87 16 129/67 94 05/25/19 10:05 91 05/25/19 07:49 94 H 05/25/19 07:31 98.1 F 94 H 20 128/77 95 Pulse Ox 05/25/19 16:00 92 05/25/19 15:30 05/25/19 11:19 05/25/19 10:05 05/25/19 07:49 05/25/19 07:31 PG Care Time/CCT Total # of Minutes Spent Total Time Spent with Patient: Total time spent is greater than 50% in coordination of care (as documented) at patient's floor/unit and/or counseling patient:
[2019-05-25] MEDS: METHADONE HCL 10 MG TAB PO PRN (18:20)
[2019-05-25] MEDS: ALPRAZolam 0.5 MG TABLET PO PRN (20:21)
--- NOTE | 2019-05-25 22:03 | Billing Data ---
Coding Level of Care Code 09499 Initial Inpt Care Lvl 2
[2019-05-26] MEDS: DICLOFENAC SOD 1% GEL 100 GM TUBE EXT SCH ×4 (01:39→20:50)
[2019-05-26] MEDS: KETOROLAC TROMETHAMINE 10 MG TABLET PO PRN ×3 (01:52→21:30)
[2019-05-26] MEDS: METHADONE HCL 10 MG TAB PO PRN ×2 (05:38→15:38)
[2019-05-26 06:33] LABS: Hematocrit (blood only) 39.6 % (42-52); Hemoglobin 13.5 g/dL (14.0-18.0); Mean Corpuscular Hemoglobin 31.7 pg (25-34); Mean Corpuscular Hgb Conc 34.1 g/dL (32-36); Mean Platelet Volume 9.8 fL (7.4-10.4); Platelet Count 145 K/uL (130-400); RDW Coefficient of Variation 13.7 % (11.5-14.5); RDW Standard Deviation 46.6 fL (36.4-46.3); Red Blood Count 4.26 M/uL (4.7-6.1)
[2019-05-26 06:49] LABS: Calcium 8.8 mg/dl (8.5-10.1); Creatinine Clr Calc Pharmacy 86.9 ml/min; Est GFR (African American) 113.6; Potassium 3.2 mmol/L (3.5-5.1)
[2019-05-26] MEDS ORDERED: POTASSIUM CHLORIDE 20 MEQ TABCR PO STA (06:57)
[2019-05-26] MEDS: NALOXONE INTNAS SCH ×6 (07:28→18:33)
[2019-05-26] MEDS: FUROSEMIDE 20 MG TAB PO SCH (07:49)
[2019-05-26] MEDS: POLYETHYLENE (MIRALAX) 17 GM PACK PO SCH (07:49)
[2019-05-26] MEDS: PANTOprazole 40 MG TAB PO SCH (07:50)
[2019-05-26] MEDS: ATORVASTATIN 10 MG TAB PO SCH (07:51)
[2019-05-26] MEDS: CHOLECALCIFEROL 1,000 UNITS TAB PO SCH (07:51)
[2019-05-26] MEDS: BusPIRone 15 MG TAB PO SCH ×3 (07:51→20:50)
[2019-05-26] MEDS: FOLIC ACID 1 MG TAB PO SCH (07:52)
[2019-05-26] MEDS: GABAPENTIN 300 MG CAP PO SCH (07:52)
[2019-05-26] MEDS: ENOXAPARIN INJ 40 MG/0.4 ML SYR SQ SCH (07:53)
[2019-05-26] MEDS: LIDOCAINE 5% 1 PATCH TD SCH (07:53)
[2019-05-26] MEDS: THIAMINE HCL 100 MG TAB PO SCH (07:54)
[2019-05-26] MEDS: FAMOTIDINE 20 MG TAB PO SCH ×2 (07:54→20:50)
[2019-05-26] MEDS: METHYLPHENIDATE HCL 10 MG TABLET PO SCH ×3 (08:03→20:50)
[2019-05-26] MEDS: OXYCODONE HCL IR 5 MG TAB (IMMEDIATE RELEASE) PO PRN ×2 (08:04→22:39)
--- NOTE | 2019-05-26 11:20 | Discharge Summary ---
Date of Service May 26, 2019 Admission HPI Per Admitting Provider 63 yo afebrile M here for fall, found to have low oxygen saturation (86%) concern for aspiration. The patient moved to the area from [place] in late 2017. He moved into the [facility]. When I talked with him today he stated that he was hurting, but did not respond to my other questions. Tox. Screen: Methadone +, Benzodiazepines +, ethyl Alcohol [address] Spine: Multilevel degenerative disc disease and facet arthrosis, suboptimal evaluation of the central canal and neural foramen given CT technique however suspected moderate to severe central canal stenosis at L2-3 & L3-4 w/ multilevel neural foramina stenosis Admission Exam Per Admitting Provider Constitutional: + thin Eyes: PERRL, conjunctivae normal, anicteric sclerae Neck: normal visual inspection Respiratory: normal respiratory effort, lungs clear to auscultation Cardiovascular: RRR, no murmur, no edema Gastrointestinal (Abdomen): normal bowel sounds, soft, nontender, no hepatosplenomegaly Musculoskeletal: no cyanosis or clubbing, extremities motor strength 5/5 Skin: no rashes, warm and dry Neurologic: CN's II-XI intact bilaterally Psychiatric: Orientation: + not alert and + not oriented x 3 Affect: + depressed affect Lymphatic: no cervical lymphadenopathy Principal Diagnosis acute alcohol intoxication causing fall Discharge Exam Constitutional WD/WN, vitals as above Respiratory normal respiratory effort, lungs clear to auscultation Cardiovascular RRR, no murmur, no edema Gastrointestinal (Abdomen) normal bowel sounds, soft, nontender, no hepatosplenomegaly Skin no rashes, warm and dry Psychiatric A+Ox3, euthymic affect Fixated on neck and back pain Discharge Data Allergies Allergy/AdvReac Type Severity Reaction Status Date / Time erythromycin base Allergy Intermediate Rash Verified 02/27/19 17:23 Consultations 05/24/19 20:52 ED Decision to Admit Stat 05/24/19 23:27 Consult Case Management - Discharge Planning Routine Consult Case Management - Discharge Planning Routine Ordered Studies 05/24/19 13:37 CT cervical spine wo con Stat CT head/brain wo con Stat 05/24/19 20:52 CT lumbar spine wo con Stat MR brain wo con Stat 05/24/19 21:44 CT chest wo con Stat Hospital Course (1) Alcohol intoxication: 63 yo afebrile M w/ PMHx. Of ETOH abuse, fall, opioid dependence, chronic pain, cervical spinal stenosis, anxiety, neuropathy, hyperlipidemia and lower back pain presented for fall and found to have low oxygen saturation, and transient weakness of unilateral leg. Hypoxemia likely 2/2 opioid and ETOH depression, rule out aspiration PNA: - Patient has been afebrile, non-tachycardic, no leuocytosis this admission. - CT chest shows: No acute process within the chest. Segmental left lower lobe opacity with volume loss which favors atelectasis. Moderate elevation of the left hemidiaphragm which is unchanged. - Pt's O2 requirement back to baseline, expect hypoxia due to mixing of opiates and alcohol before arriving to the hospital. Opioid dependence: - Currently on methadone 10 mg PO Q8H PRN, oxycodone 5mg PO q8h. - Continue Narcan PRN . Concern for TIA w/ transient unilateral leg weakness: - MRI brain negative. - Pt's weakness convoluted by pain, pt at baseline at this time. - Started ASA 81 mg and will continue moving forward. ETOH intoxication: - Ethyl Alcohol 249 on admission, no signs or symptoms of withdrawal. - Encouraged proper nutrition moving forward and decreased alcohol intake. Chronic pain: - Seen by pain management with Dr. Shannan Servin on 03/01 - CT spine multilevel degenerative disease of the lumbar spine - Performed OMT today on patient at level of cervical and pelvic regions - Have recommended OMT moving forward. Will scheduled with me in outpatient office. Have increased gabapentin to 300mg PO TID moving forward. Have sent with Voltaren gel PRN back pain. He will follow up with his PCP. Fall likely mechanical 2/2 ETOH - Pt able to walk but is unwilling at times due to pain. Have encouraged ambulation moving forward. Neuropathy - Gabapentin increased to 300 mg PO TID due to neuropathic pain as above. Anxiety - Continue home medications. Dispo: home with self care (2) Hypoxia: (3) Anxiety and depression: (4) Opioid dependence: (5) Protein malnutrition: (6) Chronic pain: (7) Acid reflux: (8) Degenerative cervical spinal stenosis: (9) Low back pain: Total Time Total Time Spent Total Time Spent (In Minutes): see attending attestation. Discharge Plan Discharge Items Patient Disposition: Home - Self-Care Reason For Visit: hypoxia, TIA r/o Discharge Diagnosis: Fall Condition on Discharge: Good Activity: Resume your previous activity Non-emergency contact: Primary Care Provider and Hospitalist Call non-emergency contact if: your symptoms worsen and your temperature is above 101 Follow-up/Referrals: Hernando Morelos III, MD [Primary Care Provider] - Odilia Kent DO [Resident] - (for OMT treatment, 40 minute visit.) Diet: Regular Addtl Attending Provider Instructions: You were admitted for the hospital for concern for ministroke since you had your fall. We also checked to make sure you did not break anything or hurt your head in your fall, which you did not. Your alcohol content was found to be quite high which is likely part of the reason you fell. It is important to minimize drinking going forward so that you do not fall again, because each fall puts you at risk of serious injury. During your stay we did muscle treatments for your back and neck which you found to be helpful for your pain. Care management will call you within the next few days regarding setting up a follow up appointment with me for more muscle treatments in my clinic. If you do not hear from Case management then you can call my office at to schedule an appointment (schedule with Dr. Kent for OMM). We increased your dose of gabapentin to help with the pain in your legs to 300mg three times daily. We will send you with this and with the Voltaren gel for your back pain. Both were sent to the [facility] in [place]. You must follow up with your primary care doctor for refills of these medications and for hospital follow up. It is important to keep moving and walking even though your back hurts; this will help your back begin to get stronger and better. Pending Studies at Discharge: No Stand-Alone Forms: My [email or web address], Smoking Cessation Medications and DC Order Prescriptions: New gabapentin 300 mg Capsule 300 mg PO TID Qty: 90 RF: 1 diclofenac sodium [Voltaren] 1 % Gel 4 g EXT QID Qty: 100 RF: 0 Continued Narcan 4 mg/actuation spray,non-aerosol 1 sprays INTNAS Q2M Qty: 2 RF: 5 atorvastatin 10 mg tablet 10 mg PO DAILY Qty: 30 RF: 5 pantoprazole 40 mg tablet,delayed release (DR/EC) 40 mg PO QAM Qty: 30 RF: 5 buspirone 15 mg tablet 15 mg PO TID Qty: 90 RF: 5 methylphenidate HCl 10 mg tablet 10 mg PO TID Qty: 84 RF: 0 alprazolam 0.5 mg tablet 0.5 mg PO TID PRN (Reason: anxiety) Qty: 90 RF: 0 methadone 10 mg tablet 10 mg PO Q8H PRN (Reason: Pain, Severe) Qty: 90 RF: 0 oxycodone 5 mg tablet 5 mg PO Q8H PRN (Reason: Pain, Severe) Qty: 90 RF: 0 acetaminophen [Mapap (acetaminophen)] 325 mg Tablet 650 mg PO Q6H PRN (Reason: Pain, Moderate) Qty: 15 RF: 0 enoxaparin 40 mg/0.4 mL Syringe 40 mg subcut Q24H Qty: 10 RF: 0 MAG-AL 200-200 mg/5 mL Suspension 15 ml PO 5XD PRN (Reason: Dyspepsia) Qty: 100 RF: 0 polyethylene glycol 3350 [Miralax] 17 gram Powder In Packet 17 g PO DAILY Qty: 30 RF: 3 lidocaine 5 % Adhesive Patch,Medicated 1 patch transdermal QAM Qty: 30 RF: 0 cholecalciferol (vitamin D3) [Vitamin D3] 1,000 unit (25 mcg) Tablet 1,000 unit PO QAM Qty: 30 RF: 0 bisacodyl 10 mg suppository 10 mg MO Q72H PRN (Reason: constipation) Qty: 16 RF: 0 furosemide 20 mg tablet 20 mg PO DAILY RF: 0 sennosides-docusate sodium [Senna-S] 8.6-50 mg tablet 1 tab PO BID PRN (Reason: Constipation) RF: 0 Discontinued gabapentin 100 mg capsule 100 mg PO TID Qty: 90 RF: 5 Admission Data Admit Date/Time: 05/24/19 23:27 Attending Provider: Jesus Sanchez Admit Provider: Maico Steel Primary Care Provider: Hernando Morelos III Other Providers: Maico Steel Resident Activity Tracking Resident Involvement: Resident Care Provided Care Provided: Adult Hospital Medicine
[2019-05-26] MEDS ORDERED: ONDANSETRON INJ 2 MG/ML 2 ML VIAL IV STA (11:23)
--- NOTE | 2019-05-26 11:51 | Hospitalist Progress Note ---
Date of Service May 26, 2019 Assessment & Plan (1) Hypoxia: 63 yo afebrile M w/ PMHx. Of ETOH abuse, fall, opioid dependence, chronic pain, cervical spinal stenosis, anxiety, neuropathy, hyperlipidemia and lower back pain presented for fall and found to have low oxygen saturation, and t ransient weakness of unilateral leg. Concern for TIA w/ transient unilateral leg weakness: - MRI brain negative. - Pt's weakness convoluted by pain, but is unsteady appearing on his feet during walk with myself and Dr. Sanchez and leans to the right to compensate for pain. - Will benefit from PT/OT while here. - Started ASA 81 mg and will continue moving forward. Chronic pain: - Seen by pain management with Dr. Shannan Servin on 03/01. - CT spine multilevel degenerative disease of the lumbar spine. - Performed OMT today on patient at level of cervical and pelvic regions. - Have increased gabapentin to 400mg PO TID moving forward. Now has Voltaren gel PRN back pain. - Have recommended OMT moving forward in the outpatient office when discharged. Will schedule with me in outpatient office. Opioid dependence: - Currently on methadone 10 mg PO Q8H PRN, oxycodone 5mg PO q8h. - Continue Narcan PRN. Neuropathy - Gabapentin increased to 400 mg PO TID due to neuropathic pain as above. Fall likely mechanical 2/2 ETOH - Pt able to walk but is unwilling at times due to pain. Have encouraged ambulation moving forward. Anxiety - Continue home medications. ETOH intoxication (resolved): - Ethyl Alcohol 249 on admission, no signs or symptoms of withdrawal. - Encouraged proper nutrition moving forward and decreased alcohol intake. Hypoxemia likely 2/2 opioid and ETOH depression, rule out aspiration PNA (resolved): - Patient has been afebrile, non-tachycardic, no leukocytosis this admission. - CT chest shows: No acute process within the chest. Segmental left lower lobe opacity with volume loss which favors atelectasis. Moderate elevation of the left hemidiaphragm which is unchanged. - Pt's O2 requirement back to baseline, expect hypoxia due to mixing of opiates and alcohol before arriving to the hospital. Code Status: FULL CODE FEN/GI: Encourage PO intake. Repleted Potassium of 3.2 today with 40 meq K PO. Chocolate Boost q12h DVT ppx: Lovenox 40mg SQ q24h Dispo: med/surg (2) Alcohol intoxication: (3) Anxiety and depression: (4) Protein malnutrition: (5) Opioid dependence: (6) Chronic pain: (7) Acid reflux: (8) Degenerative cervical spinal stenosis: (9) Hyperlipidemia: (10) Neuropathy: Supervising Physician Co-Signing Physician Notes I personally examined the patient and verified all parkinson points of history and exam, discussed case, and agree with decision making with Dr Kent. Ongoing back pain low back pain in the back and the buttocks. Headache and neck pain although notes that OMT helped significantly and would like more of that. He seems to be very encouraged with the benefit of what little OMT he has had so far. Extensive discussions about his chronic pain the etiology the future management and both acute and chronic plans. We walk in the hallway together and he is fairly unsteady on his feet and does not feel safe. He is still nauseated. He is weak and lightheaded. Vitals noted, in general he is awake and alert pleasant but appears frail and thin and appears somewhat uncomfortable and weak. Musculoskeletal/osteopathic structural exam shows left greater than right suboccipital musculature high in tone, tender, decreased range of motioninhibitory pressureimproved. Right greater than left but bilateral lumbar paraspinal musculature high in tone, ten ruben, decreased range of motionLASimproved, and right greater than left pelvic musculature in the region of his piriformis high in tone, tender, decreased range of motion LAS improved. Patient tolerated well. Of note his gait was slow and somewhat unsteady frequently almost crossing over steps. And at the end of a fairly short walk (may be 50 to 70 feet) he noted some pain down the front of his legs. WeaknessPT/OT eval and treat. Right now he does not appear to be safe to be home. I am not sure if he will show quick enough improvement to be able to go home with outpatient therapy as we affect better pain control or if he will need some type of rehab. Lumbar radiculopathythis seems to be the pain down the front of his legs whenever he walked. We discussed extensively that the pain in his back and buttocks, well may be having a component of bone and disc disease underlying it, is mostly pain of tight muscles and ligaments. Ongoing follow-up with surgery, increase gabapentin further Leg burning painshe relates this all to venous stasis type changes, although it sounds like he has had venous stasis seems like very well managed. I do wonder how much of his lower extremity burning is actually related to his lumbar radiculopathy, and given his drinking we will also check a B12 level/continue supplement thiamine and folate. Hopefully increasing the gabapentin as well as managing his low back issues may help at least temporize this. Low back painseems to be a combination of his bone and disc disease, but with a heavy overlay of muscle spasm, as well as probably facilitation of his peripheral and central nervous system from having had the pain so intensely for 7 years. Managed multifactorial. OMT for muscle spasm, it sounds like he may benefit from surgery for the disc portion of it, titrate gabapentin for the peripheral nervous system facilitation, unfortunately it sounds like he is not a good candidate for SNRI or tricyclic antidepressants as he notes that in the past these been on something like 6 different antidepressants many of which made him have symptoms that sounded fairly consistent with hernan. Topical diclofenac over the area of muscle spasms as well. Extensive discussions on the fact that this has a high probability for improvement with the above multimodal plan, but that likely improvement will be measured more than months or years. Headacheimproving but still persistent, predominantly muscular at this point brought on by his fall. Somatic dysfunction cervical, lumbar, and pelvic regionsOMT as above Time in the room approximately 11:15 AM, time out approximately noon. Only something on the order of 5 to 10 minutes of this was spent doing OMT procedure, therefore greater than 30 minutes [id number] in discussions explanations and coordination of care. Subjective Overnight pt had complaints of back pain and Dr. Florez gave pt Voltaren Gel q4h with relief. Pt reports continued pain but has been able to get some more sleep last night. No fevers or chills, no abdominal pain, endorses nausea but no vomiting. Review of Systems Constitutional: no fever, no chills and no malaise Respiratory: no cough and no dyspnea Cardiovascular: no chest pain, no palpitations and no edema Gastrointestinal: + nausea; no abdominal pain, no vomiting, no constipation and no diarrhea/loose stools Musculoskeletal: + back pain and + neck pain Physical Exam Constitutional: WD/WN, vitals as above Respiratory: normal respiratory effort, lungs clear to auscultation Cardiovascular: RRR, no murmur, no edema Gastrointestinal (Abdomen): normal bowel sounds, soft, nontender, no hepatosplenomegaly Musculoskeletal: watched pt walk with Dr. Sanchez. Pt leans to the right and appears unsteady on his feet. Skin: no rashes, warm and dry 4 cm area of ecchymosis over R hip Psychiatric: A+Ox3, euthymic affect fixated on pain in neck and low back. Results & Data Vital Signs (Past 12 Hours) Vital Signs Temp Pulse Resp BP Pulse Ox 05/26/19 11:32 36.7 C 82 18 138/68 93 05/26/19 07:57 36.6 C 59 L 18 142/80 H 93 Laboratory Results Laboratory Results - last 24 hr 05/26/19 05/26/19 06:02 06:02 WBC 5.10 RBC 4.26 L Hgb 13.5 L Hct 39.6 L MCV 93.0 MCH 31.7 MCHC 34.1 RDW Std Deviation 46.6 H RDW Coeff of Stephen 13.7 Plt Count 145 MPV 9.8 Sodium 136 Potassium 3.2 L D Chloride 100 Carbon Dioxide 30 Anion Gap 6.0 BUN 11 Creatinine 0.73 Est Cr Clr Drug Dosing 86.9 Est GFR ( Amer) 113.6 Est GFR (Non-Af Amer) 98.0 BUN/Creatinine Ratio 15.0 Glucose 102 H Calcium 8.8 Medications Administered Current Medications Acetaminophen (Tylenol) 650 mg PO Q6H PRN PRN Reason: Pain, Moderate Stop: 06/23/19 23:26 Last Admin: 05/25/19 09:03 Dose: 650 mg Documented by: Al Hydrox/Mg Hydrox/Simethicone (Maalox) 15 ml PO 5XDQ4H PRN PRN Reason: Dyspepsia Stop: 06/23/19 23:26 Alprazolam (Xanax) 0.5 mg PO TID PRN PRN Reason: anxiety Stop: 06/23/19 23:26 Last Admin: 05/25/19 20:21 Dose: 0.5 mg Documented by: Atorvastatin Calcium (Lipitor) 10 mg PO DAILY GREGORY Stop: 06/24/19 08:59 Last Admin: 05/26/19 07:51 Dose: 10 mg Documented by: Bisacodyl (Dulcolax) 10 mg [place] Q72H PRN PRN Reason: constipation Stop: 06/23/19 23:26 Buspirone HCl (Buspar) 15 mg PO TID [facility] Stop: 06/24/19 08:59 Last Admin: 05/26/19 07:51 Dose: 15 mg Documented by: Diclofenac Sodium (Voltaren 1% Top) 4 gm EXT QID [facility] Stop: 06/25/19 08:59 Last Admin: 05/26/19 01:39 Dose: 4 gm Documented by: Enoxaparin Sodium (Lovenox) 40 mg SQ Q24H [facility] Stop: 06/24/19 08:59 Last Admin: 05/26/19 07:53 Dose: 40 mg Documented by: Famotidine (Pepcid) 20 mg PO BID [facility] Stop: 06/24/19 11:44 Last Admin: 05/26/19 07:54 Dose: 20 mg Documented by: Folic Acid (Folvite) 1 mg PO QAM [facility] Stop: 06/24/19 08:59 Last Admin: 05/26/19 07:52 Dose: 1 mg Documented by: Furosemide (Lasix) 20 mg PO DAILY [facility] Stop: 06/24/19 08:59 Last Admin: 05/26/19 07:49 Dose: 20 mg Documented by: Gabapentin (Neurontin) 300 mg PO TID [facility] Stop: 06/24/19 13:59 Last Admin: 05/26/19 07:52 Dose: 300 mg Documented by: Ketorolac Tromethamine (Toradol) 10 mg PO Q6H PRN PRN Reason: Pain >4/10 Stop: 05/30/19 14:28 Last Admin: 05/26/19 01:52 Dose: 10 mg Documented by: Lidocaine (Lidoderm 5%) 1 patch TD QAM [facility] Stop: 06/24/19 08:59 Last Admin: 05/26/19 07:53 Dose: 1 patch Documented by: Lorazepam (Ativan) 1 - 3 mg PO UD PRN; Protocol PRN Reason: EtoH Withdrawal AWSS 6-10+ Stop: 06/23/19 23:26 Methadone HCl (Dolophine) 10 mg PO Q8H PRN PRN Reason: Pain, Severe Stop: 06/07/19 23:26 Last Admin: 05/26/19 05:38 Dose: 10 mg Documented by: Methylphenidate HCl (Ritalin) 10 mg PO TID [facility] Stop: 06/08/19 08:59 Last Admin: 05/26/19 08:03 Dose: 10 mg Documented by: Miscellaneous (Remove Lidoderm Patch) 1 ea N/A DAILY@2100 [facility] Stop: 06/23/19 23:26 Last Admin: 05/25/19 20:22 Dose: 1 ea Documented by: Miscellaneous Information (Pharmacist Discharge Med Rec Consult) 1 ea N/A UD PRN PRN Reason: Consult Stop: 06/23/19 23:26 Ondansetron HCl (Zofran) 4 mg IV Q4H PRN PRN Reason: Nausea Stop: 06/24/19 12:51 Last Admin: 05/25/19 14:16 Dose: 4 mg Documented by: Oxycodone HCl (Roxicodone Immediate Rel) 5 mg PO Q8H PRN PRN Reason: Pain Stop: 06/07/19 23:34 Last Admin: 05/26/19 08:04 Dose: 5 mg Documented by: Pantoprazole [facility]odium (Protonix) [facility] [place] Stop: 06/24/19 08:59 Last Admin: 05/26/19 07:50 Dose: 40 mg Documented by: Polyethylene Glycol (Miralax Powder Packet) 17 gm PO DAILY [facility] Stop: 06/24/19 08:59 Last Admin: 05/26/19 07:49 Dose: 17 gm Documented by: Senna/Docusate Sodium (Senokot S) 1 tab PO BID PRN PRN Reason: Constipation Stop: 06/23/19 23:26 Last Admin: 05/26/19 07:49 Dose: 1 tab Documented by: Thiamine HCl (Vitamin B-1) [facility] [place] Stop: 06/24/19 08:59 Last Admin: 05/26/19 07:54 Dose: 100 mg Documented by: Vitamin D (Vitamin D3) 1,000 units [facility] [place] Stop: 06/24/19 08:59 Last Admin: 05/26/19 07:51 Dose: 1,000 units Documented by: Resident Activity Tracking Resident Involvement: Resident Care Provided Care Provided: Adult Hospital Medicine (1) Alcohol intoxication Complication of substance-induced condition: with unspecified complication Qualified Code(s): F10.929 - Alcohol use, unspecified with intoxication, unspecified
[2019-05-26] MEDS: GABAPENTIN 400 MG CAP PO SCH ×2 (13:48→20:50)
[2019-05-26] MEDS: ALPRAZolam 0.5 MG TABLET PO PRN ×2 (13:50→16:57)
--- NOTE | 2019-05-26 16:04 | Hospitalist Progress Note ---
Date of Service May 26, 2019 Results & Data Vital Signs (Past 12 Hours) Vital Signs Temp Pulse Resp BP BP Pulse Ox 05/26/19 15:19 97.5 F L 80 20 136/87 97 05/26/19 11:32 98.1 F 82 18 138/68 93 05/26/19 07:57 97.9 F 59 L 18 142/80 H 93 PG Care Time/CCT Total # of Minutes Spent Total Time Spent with Patient: Total time spent is greater than 50% in coordination of care (as documented) at patient's floor/unit and/or counseling patient:
--- NOTE | 2019-05-26 16:04 | Billing Data ---
Coding Level of Care Code 40738 Prolonged Care (int'l)
[2019-05-27] MEDS: METHADONE HCL 10 MG TAB PO PRN ×2 (04:29→12:27)
[2019-05-27] MEDS: NALOXONE INTNAS SCH ×8 (07:21→10:36)
[2019-05-27 07:51] VITALS: BP 164/87; TEMP 98.2; O2SAT 94
[2019-05-27] MEDS ORDERED: POTASSIUM CHLORIDE 20 MEQ TABCR PO SCH (09:00)
[2019-05-27] MEDS: OXYCODONE HCL IR 5 MG TAB (IMMEDIATE RELEASE) PO PRN (09:09)
[2019-05-27] MEDS: FUROSEMIDE 20 MG TAB PO SCH (09:10)
[2019-05-27] MEDS: THIAMINE HCL 100 MG TAB PO SCH (09:10)
[2019-05-27] MEDS: BusPIRone 15 MG TAB PO SCH (09:10)
[2019-05-27] MEDS: CHOLECALCIFEROL 1,000 UNITS TAB PO SCH (09:11)
[2019-05-27] MEDS: FAMOTIDINE 20 MG TAB PO SCH (09:11)
[2019-05-27] MEDS: ATORVASTATIN 10 MG TAB PO SCH (09:11)
[2019-05-27] MEDS: GABAPENTIN 400 MG CAP PO SCH ×2 (09:11→12:29)
[2019-05-27] MEDS: PANTOprazole 40 MG TAB PO SCH (09:12)
[2019-05-27] MEDS: FOLIC ACID 1 MG TAB PO SCH (09:12)
[2019-05-27] MEDS: LIDOCAINE 5% 1 PATCH TD SCH (09:13)
[2019-05-27] MEDS: DICLOFENAC SOD 1% GEL 100 GM TUBE EXT SCH ×2 (09:14→12:28)
[2019-05-27] MEDS: ENOXAPARIN INJ 40 MG/0.4 ML SYR SQ SCH (09:14)
[2019-05-27] MEDS: METHYLPHENIDATE HCL 10 MG TABLET PO SCH (09:20)
[2019-05-27] MEDS: KETOROLAC TROMETHAMINE 10 MG TABLET PO PRN (09:22)
--- NOTE | 2019-05-27 09:26 | Discharge Summary ---
Date of Service May 27, 2019 Admission HPI Per Admitting Provider Chief Complaint: Fall Primary Care Provider: Hernando Morelos MD 63 yo afebrile M here for fall, found to have low oxygen saturation (86%) concern for aspiration. The patient moved to the area from [place] in late 2017. He moved into the [facility]. When I talked with him today he stated that he was hurting, but did not respond to my other questions. Tox. Screen: Methadone +, Benzodiazepines +, ethyl Alcohol [address] Spine: Multilevel degenerative disc disease and facet arthrosis, suboptimal evaluation of the central canal and neural foramen given CT technique however suspected moderate to severe central canal stenosis at L2-3 & L3-4 w/ multilevel neural foramina stenosis Admission Exam Per Admitting Provider Constitutional: + thin Eyes: PERRL, conjunctivae normal, anicteric sclerae Neck: normal visual inspection Respiratory: normal respiratory effort, lungs clear to auscultation Cardiovascular: RRR, no murmur, no edema Gastrointestinal (Abdomen): normal bowel sounds, soft, nontender, no hepatosplenomegaly Musculoskeletal: no cyanosis or clubbing, extremities motor strength 5/5 Skin: no rashes, warm and dry Neurologic: CN's II-XI intact bilaterally Psychiatric: Orientation: + not alert and + not oriented x 3 Affect: + depressed affect Lymphatic: no cervical lymphadenopathy Principal Diagnosis Fall Discharge Exam Constitutional WD/WN, vitals as above Respiratory normal respiratory effort, lungs clear to auscultation Cardiovascular RRR, no murmur, no edema Gastrointestinal (Abdomen) normal bowel sounds, soft, nontender, no hepatosplenomegaly Musculoskeletal Pain in his back is somewhat decreased today compared to yesterday. Monitored him while walking; without balance issues and steady on his feet. Skin no rashes, warm and dry Psychiatric A+Ox3, euthymic affect Discharge Data Allergies Allergy/AdvReac Type Severity Reaction Status Date / Time erythromycin base Allergy Intermediate Rash Verified 02/27/19 17:23 Consultations 05/24/19 20:52 ED Decision to Admit Stat 05/24/19 23:27 Consult Case Management - Discharge Planning Routine Consult Case Management - Discharge Planning Routine Ordered Studies 05/24/19 13:37 CT cervical spine wo con Stat CT head/brain wo con Stat 05/24/19 20:52 CT lumbar spine wo con Stat MR brain wo con Stat 05/24/19 21:44 CT chest wo con Stat Hospital Course (1) Chronic pain: 63 yo afebrile M w/ PMHx Of ETOH abuse, fall, opioid dependence, chronic pain, cervical spinal stenosis, anxiety, neuropathy, hyperlipidemia and lower back pain presented for fall and found to have low oxygen saturation, and transient weakness of unilateral leg. Chronic pain: - Seen by pain management with Dr. Shannan Servin on 03/01. - CT spine multilevel degenerative disease of the lumbar spine. - Performed OMT daily on patient at levels of cervical, lumbar, and pelvic regions. - Have increased gabapentin to 300mg PO TID moving forward. Now has Voltaren gel PRN back pain. Sent both to local pharmacy for pain. Pt understands that he is on "bad medications for his pain" and is willing to work with both myself and Dr. Morelos regarding decreasing those things but I think it is important moving forward that we try to manage his pain at his current level before decreasing his current meds. Is feeling fairly well in the hospital on current regimen and was even able to sleep at night more than he usually does at home. - Have recommended OMT moving forward in the outpatient office when discharged. Will schedule with me in outpatient office. - Pt admits that he has been self-medicating with alcohol for his pain. Understands that alcohol is harmful and had extensive discussion about decreasing his drinking moving forward. Opioid dependence: - Continue methadone 10 mg PO Q8H PRN, oxycodone 5mg PO q8h. - Continue Narcan PRN. Neuropathy: - Gabapentin 300 mg PO TID due to neuropathic pain as above. Anxiety: - Continue home medications. Somatic dysfunction of cervical and lumbar spine, pelvic region: - Based on significant TART changes, performed soft tissue techniques on patient in these 3 body regions with improvement of range of motion, tenderness, and hypertonicity. - Pt tolerated OMT well. 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 Have encouraged ambulation moving forward and pt is optimistic about "[facility] my house" and being able to walk more. Concern for TIA w/ transient unilateral leg weakness (resolved): - Initially presented with a fall and was not AAOx3, concern for TIA vs. stroke, workup was negative. Found at that time to be intoxicated. - MRI brain negative. with only leg symptoms, quite inconsistent with cerebrovascular disease - after further review initial concerns on stroke unfounded - Pt's weakness convoluted by pain, but is unsteady appearing on his feet during walk with myself and Dr. Sanchez and leans to the right to compensate for pain. ETOH intoxication (resolved): - Ethyl Alcohol 249 on admission, no signs or symptoms of withdrawal. - Encouraged proper nutrition moving forward and decreased alcohol intake. Hypoxemia likely 2/2 opioid and ETOH depression, rule out aspiration PNA (resolved): - Patient has been afebrile, non-tachycardic, no leukocytosis this admission. - CT chest shows: No acute process within the chest. Segmental left lower lobe opacity with volume loss which favors atelectasis. Moderate elevation of the left hemidiaphragm which is unchanged. - Pt's O2 requirement back to baseline, expect hypoxia due to mixing of opiates and alcohol before arriving to the hospital. Dispo: home with self care. For follow up appointments with Dr. Morelos for medical management and Dr. Kent for OMT (2) Opioid dependence: (3) Protein malnutrition: (4) Anxiety and depression: (5) Fall: (6) Alcohol intoxication: (7) Hypoxia: (8) Neuropathy: (9) Somatic dysfunction of chest wall: (10) Somatic dysfunction of lumbar region: Total Time Total Time Spent Total Time Spent (In Minutes): <30 Discharge Plan Discharge Items Patient Disposition: Home - Self-Care Reason For Visit: hypoxia, TIA r/o Discharge Diagnosis: Fall Condition on Discharge: Good Activity: Resume your previous activity Non-emergency contact: Primary Care Provider and Hospitalist Call non-emergency contact if: your symptoms worsen and your temperature is above 101 Follow-up/Referrals: Hernando Morelos III, MD [Primary Care Provider] - 05/30/19 2:40 pm (Please, follow up at Dr. Morelos's office on ThursdayMay 30 at 2:40 pm. *If you need to change this appointment, call the office at [phone].) Odilia Kent DO [Resident] - 06/13/19 8:50 am (Please, follow up with Dr. Odilia Kent, for osteopathic manipulative t herapy, on ThursdayJune 13 at 8:50 am. *The office is located in [address] of [facility], next to the hospital. If you have any questions, call the office at [phone]. ) Diet: Regular Addtl Attending Provider Instructions: You were admitted for the hospital for concern for ministroke since you had your fall. We also checked to make sure you did not break anything or hurt your head in your fall, which you did not. Your alcohol content was found to be quite high which is likely part of the reason you fell. It is important to minimize drinking going forward so that you do not fall again, because each fall puts you at risk of serious injury. During your stay we did muscle treatments for your back and neck which you found to be helpful for your pain. Care management will call you within the next few days regarding setting up a follow up appointment with me for more muscle treatments in my clinic. If you do not hear from Case management then you can call my office at to schedule an appointment (schedule with Dr. Kent for [id number]). We increased your dose of gabapentin to help with the pain in your legs to 300mg three times daily. We have also added the voltaren gel to your pain regimen. You should apply this gel to your area of pain on your back and legs four times a day to help with your pain. Both of these medications were sent to the [facility] in [place]. You must follow up with your primary care doctor for refills of these medications and for hospital follow up. It is important to keep moving and walking as much as you can even though your back hurts; this will help your back begin to get stronger and better. It is ok if you need to stop to rest, but it is important that you get back up again and keep walking and doing things to make your strength better. With time and hard work you will be able to help your pain get better. Pending Studies at Discharge: No Stand-Alone Forms: My [employer], Smoking Cessation Medications and DC Order Prescriptions: New diclofenac sodium [Voltaren] 1 % Gel 4 g EXT QID Qty: 100 RF: 0 gabapentin 300 mg capsule 300 mg PO TID Qty: 90 RF: 0 Continued Narcan 4 mg/actuation spray,non-aerosol 1 sprays INTNAS Q2M Qty: 2 RF: 5 atorvastatin 10 mg tablet 10 mg PO DAILY Qty: 30 RF: 5 pantoprazole 40 mg tablet,delayed release (DR/EC) 40 mg PO QAM Qty: 30 RF: 5 buspirone 15 mg tablet 15 mg PO TID Qty: 90 RF: 5 methylphenidate HCl 10 mg tablet 10 mg PO TID Qty: 84 RF: 0 alprazolam 0.5 mg tablet 0.5 mg PO TID PRN (Reason: anxiety) Qty: 90 RF: 0 methadone 10 mg tablet 10 mg PO Q8H PRN (Reason: Pain, Severe) Qty: 90 RF: 0 oxycodone 5 mg tablet 5 mg PO Q8H PRN (Reason: Pain, Severe) Qty: 90 RF: 0 acetaminophen [Mapap (acetaminophen)] 325 mg Tablet 650 mg PO Q6H PRN (Reason: Pain, Moderate) Qty: 15 RF: 0 enoxaparin 40 mg/0.4 mL Syringe 40 mg subcut Q24H Qty: 10 RF: 0 MAG-AL 200-200 mg/5 mL Suspension 15 ml PO 5XD PRN (Reason: Dyspepsia) Qty: 100 RF: 0 polyethylene glycol 3350 [Miralax] 17 gram Powder In Packet 17 g PO DAILY Qty: 30 RF: 3 lidocaine 5 % Adhesive Patch,Medicated 1 patch transdermal QAM Qty: 30 RF: 0 cholecalciferol (vitamin D3) [Vitamin D3] 1,000 unit (25 mcg) Tablet 1,000 unit PO QAM Qty: 30 RF: 0 bisacodyl 10 mg suppository 10 mg OK Q72H PRN (Reason: constipation) Qty: 16 RF: 0 furosemide 20 mg tablet 20 mg PO DAILY RF: 0 sennosides-docusate sodium [Senna-S] 8.6-50 mg tablet 1 tab PO BID PRN (Reason: Constipation) RF: 0 Discontinued gabapentin 100 mg capsule 100 mg PO TID Qty: 90 RF: 5 Discharge Orders: Discharge Order (Routine); Ordered 05/27/19 Ordered By: Odilia Kent Admission Data Admit Date/Time: 05/26/19 14:31 Attending Provider: Jesus Sanchezit Provider: Maico Steel Primary Care Provider: Hernando Morelos III Other Providers: Maico Steel Other Interventions: Discharge Summary Assessment (RN) Last Done: 05/27/19 13:23 Supervising Physician Co-Signing Physician Notes I personally examined the patient and verified all parkinson points of history and exam, discussed case, and agree with decision making with Dr Kent. notes that he actually feels like he's doing somewhat better. pain shifting in low back (from back to buttocks) and neck/head pain improving. requesting further OMT. wants to go home though and feels up to going home. reiterated plans moving forward Vitals noted, in general he is awake and alert pleasant but appears frail and thin and appears somewhat uncomfortable and weak. Musculoskeletal/osteopathic structural exam shows left greater than right suboccipital musculature high in tone, tender, decreased range of motioninhibitory pressureimproved. Right greater than left but bilateral lumbar paraspinal musculature high in tone, tender, decreased range of motionLASimproved, and right greater than left pelv ic musculature in the region of his piriformis high in tone, tender, decreased range of motion LAS improved. Patient tolerated well. overall tissue texture was better than yesterday Weaknesswith improvement in pain his gait/stability have improved as well - safe to go home Lumbar radiculopathyWe discussed extensively that the pain in his back and buttocks, well may be having a component of bone and disc disease underlying it, is mostly pain of tight muscles and ligaments. Ongoing follow-up with surgery, increased gabapentin. seems to mainly be manifest as a [id number] radiculopathy when ambulating (although this was less today than yesterday) Leg burning painshe relates this all to venous stasis type changes, although it sounds like he has had venous stasis seems like very well managed. I do wonder how much of his lower extremity burning is actually related to his lumbar radiculopathy. also entertained B12 deficiency given EtOH and nutritional status but was an "acceptably low-normal" 494. increased gabapentin and this can be further titrated as an outpt Low back painseems to be a combination of his bone and disc disease, but with a heavy overlay of muscle spasm, as well as probably facilitation of his peripheral and central nervous system from having had the pain so intensely for 7 years. Managed multifactorial. OMT for muscle spasm, it sounds like he may benefit from surgery for the disc portion of it, titrate gabapentin for the peripheral nervous system facilitation, unfortunately it sounds like he is not a good candidate for SNRI or tricyclic antidepressants as he notes that in the past these been on something like 6 different antidepressants many of which made him have symptoms that sounded fairly consistent with hernan. Topical diclofenac over the area of muscle spasms as well. Extensive discussions on the fact that this has a high probability for improvement with the above multimodal plan, but that likely improvement will be measured more than months or years - but it is quite promising that he's actually already seeing a degree of improvement. Headacheimproving but still persistent, predominantly muscular at this point brought on by his fall. Somatic dysfunction cervical, lumbar, and pelvic regionsOMT as above, ongoing OMT in office setting with Dr Figueroa. Resident Activity Tracking Resident Involvement: Resident Care Provided Care Provided: Adult Hospital Medicine
[2019-05-27] MEDS ORDERED: STROKE PATIENT DISCHARGE STA (11:53)
[2019-05-27 13:25] VITALS: PULSE 91
--- NOTE | 2019-05-27 14:16 | Billing Data ---
Coding Level of Care Code D/C Day Management <30 mins
--- NOTE | 2019-05-27 14:17 | Hospitalist Progress Note ---
Date of Service May 27, 2019 Results & Data Vital Signs (Past 12 Hours) Vital Signs Temp Pulse Pulse Resp BP BP Pulse Ox 05/27/19 13:23 98.2 F 91 H 67 20 138/68 164/87 H 94 05/27/19 07:50 98.2 F 67 20 164/87 H 94 PG Care Time/CCT Total # of Minutes Spent Total Time Spent with Patient: Total time spent is greater than 50% in coordination of care (as documented) at patient's floor/unit and/or counseling patient:
[2019-05-29 03:59] LABS: 7-Aminoclonaz, Confirm NEGATIVE NG/ML (CUTOFF=25); Hydro-Alp Ur, GC/MS 54 NG/ML (CUTOFF=25); Hydroxyethylflurazepam, Conf NEGATIVE NG/ML (CUTOFF=50); Hydroxytriazolam NEGATIVE NG/ML (CUTOFF=50); Lorazepam, Ur GC/MS NEGATIVE NG/ML (CUTOFF=50); Methadone, Ur Metabolite 284 NG/ML (CUTOFF=100); Nordiazepam, Confirm NEGATIVE NG/ML (CUTOFF=50); Oxazepam Ur, GC/MS NEGATIVE NG/ML (CUTOFF=50); Temazepam, Confirm NEGATIVE NG/ML (CUTOFF=50)
== END 2019-05-27 14:29 | disposition home or self-care (01) | DRG 897 ==
LOC: ED 12:45 → INTOOBSV 22:41 → 2N 22:41 → SUATTDRO 23:27

== ENCOUNTER 2019-11-19 23:49 | Observation (INO) ==
[2019-11-20 00:21] LABS: Basophils # (auto) 0.03 K/uL (0-0.2); Basophils % (auto) 0.2 %; Eosinophils # (auto) 0.07 K/uL (0-0.5); Eosinophils % (auto) 0.5 %; Hematocrit (blood only) 44.1 % (42-52); Hemoglobin 15.2 g/dL (14.0-18.0); Immature Granulocytes # (auto) 0.02 K/uL (0.00-0.02); Immature Granulocytes % (auto) 0.2 %; Mean Corpuscular Hemoglobin 31.4 pg (25-34); Mean Corpuscular Hgb Conc 34.5 g/dL (32-36); Mean Corpuscular Volume 91.1 fL (80-100); Mean Platelet Volume 9.8 fL (7.4-10.4); Monocytes # (auto) 0.44 K/uL (0.11-0.59); Monocytes % (auto) 3.4 %; Neutrophils # (auto) 10.47 K/uL (1.4-6.5); Neutrophils % (auto) 81.7 %; Platelet Count 294 K/uL (130-400); RDW Coefficient of Variation 13.3 % (11.5-14.5); RDW Standard Deviation 43.8 fL (36.4-46.3); Red Blood Count 4.84 M/uL (4.7-6.1); White Blood Count 12.83 K/uL (4.8-10.8)
[2019-11-20 00:32] LABS: Prothrombin Time 10.5 Seconds (9.0-12.0)
[2019-11-20 00:38] LABS: Alanine Aminotransferase 19 U/L (12-78); Albumin Level 3.9 gm/dl (3.4-5.0); Aspartate Aminotransferase 21 U/L (15-37); BUN Creatinine Ratio 17.1 (10-20); Blood Urea Nitrogen 16 mg/dl (7-18); Calcium 8.8 mg/dl (8.5-10.1); Carbon Dioxide 27 mmol/L (21-32); Chloride 104 mmol/L (98-107); Creatinine Clr Calc Pharmacy 68.1 ml/min; Est GFR (African American) 97.7; Est GFR (Non-African American) 84.3; Glucose 109 mg/dl (70-99); Lipase 306 U/L (73-393); Magnesium 2.4 mg/dl (1.8-2.4); Potassium 3.5 mmol/L (3.5-5.1); Sodium 140 mmol/L (136-145)
[2019-11-20 00:49] LABS: Albumin Globulin Ratio 1.2 (0.9-2); Alkaline Phosphatase 93 U/L (45-117); Bilirubin,Total 0.8 mg/dl (0.2-1); Creatine Kinase 335 U/L (39-308); Globulin 3.3 gm/dl (2.5-4.0); NT Pro B Type Natriuretic Pept 28 pg/ml (0-900); Thyroid Stimulating Hormone 0.301 uIu/ml (0.300-4.500); Total Protein 7.2 gm/dl (6.4-8.2); Troponin I < 0.015 ng/ml (0-0.045)
[2019-11-20] MEDS: SODIUM CHLORIDE 0.9% 1000ML 1,000 ML IV SCH ×4 (01:06→23:48)
[2019-11-20 01:20] LABS: Appearance Urine Clear (Clear); Bilirubin Urine Negative (Negative); Blood Urine Negative (Negative); Color Urine Yellow; Glucose Urine UA Negative (Negative); Ketones Urine Negative (Negative); Leukocyte Esterase Urine Negative (Negative); Nitrite Urine Negative (Negative); Protein Urine Negative (Negative); Specific Gravity Urine 1.014 (1.000-1.030); Urobilinogen Urine Negative (Negative); pH Urine 5.5 (4.5-7.5)
--- NOTE | 2019-11-20 01:40 | Emergency Department Note ---
History of Present Illness General Chief complaint: Fall Stated complaint: fall, pain all over Time Seen by Provider: 11/20/19 00:12 Source: patient Mode of arrival: EMS Limitations: no limitations History of Present Illness Provider complaint: Weakness, frequent falls Onset (ago): unknown Pain Consistency: + constant Maximum Pain Intensity: 8 Current Pain Intensity: 8 Quality: + constant Relieved By: + none Exacerbated By: + movement Associated symptoms: + chest pain, + headaches, + loss of appetite, + malaise and + weakness; no cough, no nausea/vomiting and no shortness of breath Treatments prior to arrival: none This is a 63-year-old from home via EMS due to worsening weakness and frequent falls. Patient states he has been falling frequently over the last 6 weeks. Patient states he gets weak and dizzy and despite use of a cane at home continues to fall. Patient does live alone. Patient denies any change in medications, denies use of antiplatelet or anticoagulation therapy. Patient denies any recent illness. He does feel his appetite is normal, is unsure how his hydration status is. Patient denies any change in bowel or bladder function. Patient states he does occasionally get chest pain but feels this may perhaps be related to a fall in which she suspects he broke a rib on the left side of his chest. Patient does admit to head injuries with falling although denies loss of consciousness. Pt seen during a time of high acuity and national emergency pandemic while wearing PPE. Home Medications Home Medications Medication Instructions Recorded Confirmed Type naloxone 4 mg/actuation nasal spray 1 sprays INTNAS Q2M #2 ea 02/01/19 11/20/19 Rx acetaminophen [Mapap 650 mg PO Q6H PRN #15 tab 03/03/19 11/20/19 Rx (acetaminophen)] bisacodyl 10 mg SD Q72H PRN #16 ea 03/03/19 11/20/19 Rx polyethylene glycol 3350 [Miralax] 17 g PO DAILY #30 ea 03/03/19 11/20/19 Rx furosemide 20 mg PO DAILY 05/24/19 11/20/19 History sennosides-docusate sodium 1 tab PO BID PRN 05/24/19 11/20/19 History [Senna-S] diclofenac sodium [Voltaren] 4 g EXT QID #100 gm 05/27/19 11/20/19 Rx buspirone 15 mg tablet 15 mg PO TID #90 tab 08/05/19 11/20/19 Rx gabapentin 300 mg capsule 300 mg PO TID #90 cap 08/12/19 11/20/19 Rx pantoprazole 40 mg tablet,delayed 40 mg PO QAM #30 tab 09/02/19 11/20/19 Rx release atorvastatin 10 mg tablet 10 mg PO DAILY #30 tab 09/23/19 11/20/19 Rx methadone 10 mg tablet 10 mg PO Q8H PRN #90 tab 10/31/19 11/20/19 Rx methylphenidate HCl 10 mg tablet 10 mg PO TID #84 tab 10/31/19 11/20/19 Rx oxycodone 10 mg tablet 10 mg PO BID PRN #60 tab 10/31/19 11/20/19 Rx alprazolam 0.5 mg tablet 0.5 mg PO TID PRN #90 tab 11/15/19 11/20/19 Rx Allergies Allergy/AdvReac Type Severity Reaction Status Date / Time erythromycin base Allergy Intermediate Rash Verified 11/20/19 01:48 Past Med/Surg History Medical History Acidosis, lactic (Inactive) Alcohol intoxication (Inactive) Anxiety (Acute) Arthritis (Acute) Bilateral lower leg cellulitis Degenerative cervical spinal stenosis (Acute) Depression Hearing difficulty (Acute) Hyperlipidemia (Acute) Left rib fracture (Inactive) Neuropathy Pneumonia (Inactive) Sepsis (Inactive) Spinal stenosis Stomach ulcer (Resolved) Surgical History History of hernia repair History of oral surgery Family History Mother Anxiety Depression Cardiac disorder Hypertension Diabetes Mesothelioma Father Mesothelioma Diabetes Brother Diabetes Other No significant family history Social History (Updated 11/20/19 @ 11:38 by Martine Serrano PA-C) Preferred Language: Latvian Communication Ability: Effective 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 and A total of 10 systems reviewed and were otherwise negative Physical Exam Vital Signs Vital Signs - 24 hr 11/20/19 00:03 11/20/19 01:19 11/20/19 03:05 Temperature 36.8 C Temperature Source Oral Pulse Rate 101 H Pulse Rate [Right Finger] 102 H 82 Pulse Rhythm Regular Pulse Rhythm [Right Finger] Regular Regular Pulse Strength Normal Pulse Strength [Right Finger] Normal Normal Respiratory Rate 20 20 20 Respiratory Effort / Characteristics Non-Labored Spontaneous Non-Labored Spontaneous Non-Labored Spontaneous Respiratory Depth Normal Normal Normal Respiratory Pattern Regular Blood Pressure 131/93 Blood Pressure [Right Arm] 121/97 121/88 Blood Pressure Mean 105 Blood Pressure Mean [Right Arm] 105 99 Blood Pressure Position Sitting Blood Pressure Position [Right Arm] Sitting Right Lateral Pulse Oximetry 95 97 96 Oxygen Delivery Method Room Air Room Air Room Air Sepsis Recent Fever Within 48 Hours No Sepsis Action Taken by Nursing No Action Required 11/20/19 04:07 11/20/19 06:00 11/20/19 08:03 Temperature Temperature Source Pulse Rate Pulse Rate [Right Finger] 97 H 85 94 H Pulse Rhythm Pulse Rhythm [Right Finger] Regular Regular Pulse Strength Pulse Strength [Right Finger] Normal Normal Respiratory Rate 20 20 16 Respiratory Effort / Characteristics Non-Labored Spontaneous Non-Labored Spontaneous Respiratory Depth Normal Normal Respiratory Pattern Regular Blood Pressure Blood Pressure [Right Arm] 144/93 H 99/72 L 119/90 Blood Pressure Mean Blood Pressure Mean [Right Arm] 110 81 99 Blood Pressure Position Blood Pressure Position [Right Arm] Pulse Oximetry 97 97 Oxygen Delivery Method Room Air Room Air Sepsis Recent Fever Within 48 Hours Sepsis Action Taken by Nursing GENERAL: alert, ill appearing, very thin, nearly cachectic, no distress, non- toxic HEAD: normal cephalic, atraumatic, no facial bone tenderness, no midface instability, erythema and mild deformity noted at nasal bridge, dried blood noted to right inferior aspect of forehead just superior to right eyebrow EYE EXAM: normal conjunctiva, PERRL and EOM's grossly intact OROPHARYNX: no exudate, no erythema, lips, buccal mucosa, and tongue normal and mucous membranes are mildly dry EARS: TMs clear b/l without hemotympanum NECK: supple, no nuchal rigidity, no adenopathy, non-tender CHEST: stable to compression anteriorly and posteriorly, no crepitus, pain with palpation over the left anterior inferior ribs, no crepitus LUNGS: clear to auscultation. Normal chest wall mechanics, no w/r/r, HEART: no murmurs, S1 normal and S2 normal ABDOMEN: abdomen soft, non-tender, normo-active bowel sounds, no masses, no rebound or guarding. PELVIS: stable to compression anteriorly and posteriorly BACK: Back is symmetrical on inspection and there is no deformity, no midline tenderness, no CVA tenderness. UPPER EXTREMITIES: full active and passive range of motion of all joints without tenderness to palpation, no obvious deformities, multiple areas of contusion/ecchymosis in various stages of healing, normal distal pulses bilaterally, sensation intact LOWER EXTREMITIES: full active and passive range of motion of all joints without tenderness to palpation, no obvious deformities, multiple areas of contusions/ecchymosis in various stages of healing, most prominent to the knees and distal lower extremities bilaterally, normal distal pulses bilaterally, sensation intact NEURO EXAM: Normal sensorium, cranial nerves II-XII grossly intact, normal speech, no gross weakness of arms, no gross weakness of legs. GCS: 15. Course Course 0437: Patient updated on results. Upon additional questioning, patient states he is no local family or friends for support. He receives 1 meal per day for Meals on Wheels but otherwise is not able to get groceries or food given the current coronavirus and his recent weakness and difficulty walking. Patient states prior to the outbreak that led to the pandemic, he did have physical therapist who were coming into the house to help him with his strength and mobility. He states since that service stopped, he is noticed a decline in his ambulatory function. 0500: Ambulatory trial performed by nursing staff. Patient very unstable and unsteady. I feel he is a fall risk. 0800: Pt requesting breakfast. 0835: Case discussed with ABEL Farley with [facility] hospitalist service. Administered Medications Alprazolam (Xanax) 0.5 mg PO TID PRN PRN Reason: anxiety Stop: 12/20/19 09:54 Last Admin: 11/21/19 03:56 Dose: 0.5 mg Documented by: [id number] Admin: 11/20/19 19:12 Dose: 0.5 mg Documented by: [id number] Atorvastatin Calcium (Lipitor) 10 mg PO DAILY GREGORY Stop: 12/21/19 08:59 Last Admin: 11/21/19 08:03 Dose: 10 mg Documented by: [id number] Buspirone HCl (Buspar) 15 mg PO TID GREGORY Stop: 12/20/19 13:59 Last Admin: 11/21/19 08:03 Dose: 15 mg Documented by: [id number] Admin: 11/20/19 21:06 Dose: 15 mg Documented by: [id number] Admin: 11/20/19 14:07 Dose: 15 mg Documented by: [id number] Diclofenac Sodium (Voltaren 1% Top) 4 gm EXT QID GREGORY Stop: 12/20/19 12:59 Last Admin: 11/21/19 08:13 Dose: Not Given Documented by: [id number] Admin: 11/20/19 21:07 Dose: 4 gm Documented by: [id number] Admin: 11/20/19 17:09 Dose: 4 gm Documented by: [id number] Admin: 11/20/19 14:07 Dose: 4 gm Documented by: [id number] Enoxaparin Sodium (Lovenox) 40 mg SQ QAM [facility] Stop: 12/21/19 08:59 Last Admin: 11/21/19 08:03 Dose: 40 mg Documented by: [id number] Furosemide (Lasix) 20 mg PO DAILY GREGORY Stop: 12/21/19 08:59 Last Admin: 11/21/19 08:03 Dose: 20 mg Documented by: [id number] Gabapentin (Neurontin) 300 mg PO TID GREGORY Stop: 12/20/19 13:59 Last Admin: 11/21/19 08:04 Dose: 300 mg Documented by: [id number] Admin: 11/20/19 21:06 Dose: 300 mg Documented by: [id number] Admin: 11/20/19 14:07 Dose: 300 mg Documented by: [id number] Sodium Chloride (Nss 1000ml) 1,000 mls @ 80 mls/hr IV .[id number] GREGORY Stop: 12/20/19 09:54 Last Admin: 11/20/19 23:48 Dose: 80 mls/hr Documented by: [id number] Infusion: 11/20/19 22:53 Dose: 80 mls/hr Documented by: [id number] Admin: 11/20/19 10:23 Dose: 80 mls/hr Documented by: [id number] Ketorolac Tromethamine (Toradol) 15 mg IV Q6H PRN PRN Reason: Pain Stop: 11/25/19 09:54 Last Admin: 11/20/19 23:48 Dose: 15 mg Documented by: [id number] Methadone HCl (Dolophine) 10 mg PO Q8H PRN PRN Reason: Pain, Severe Stop: 12/04/19 09:54 Last Admin: 11/21/19 03:14 Dose: 10 mg Documented by: [id number] Admin: 11/20/19 19:10 Dose: 10 mg Documented by: [id number] Admin: 11/20/19 10:26 Dose: 10 mg Documented by: [id number] Methylphenidate HCl (Ritalin) 10 mg PO TID [facility] Stop: 12/04/19 13:59 Last Admin: 11/21/19 08:07 Dose: 10 mg Documented by: [id number] Admin: 11/20/19 21:06 Dose: 10 mg Documented by: [id number] Admin: 11/20/19 14:07 Dose: 10 mg Documented by: [id number] Pantoprazole Sodium (Protonix) 40 mg PO QAM [facility] Stop: 12/20/19 10:14 Last Admin: 11/21/19 08:03 Dose: 40 mg Documented by: [id number] Admin: 11/20/19 10:58 Dose: 40 mg Documented by: [id number] Polyethylene Glycol (Miralax Powder Packet) 17 gm PO DAILY [facility] Stop: 12/21/19 08:59 Last Admin: 11/21/19 08:03 Dose: 17 gm Documented by: [id number] Senna/Docusate Sodium (Senokot S) 1 tab PO BID PRN PRN Reason: Constipation Stop: 12/20/19 09:54 Last Admin: 11/20/19 21:06 Dose: 1 tab Documented by: [id number] Discontinued Medications Alprazolam (Xanax) 0.5 mg PO NOW STA Stop: 11/20/19 07:45 Last Admin: 11/20/19 07:54 Dose: 0.5 mg Documented by: [id number] Fentanyl Citrate (Fentanyl Citrate) Confirm Administered Dose 100 mcg .ROUTE .STK-MED ONE Stop: 11/20/19 02:02 Last Increment: 11/20/19 02:04 Dose: 50 mcg Documented by: [id number] Fentanyl Citrate (Fentanyl Citrate) 50 mcg IV NOW STA Stop: 11/20/19 02:04 Last Admin: 11/20/19 02:05 Dose: Not Given Documented by: [id number] Gabapentin (Neurontin) 300 mg PO NOW STA Stop: 11/20/19 07:10 Last Admin: 11/20/19 07:50 Dose: 300 mg Documented by: [id number] Sodium Chloride (Nss 1000ml) 1,000 mls @ 125 mls/hr IV .Q8H GREGORY Stop: 12/20/19 00:14 Last Admin: 11/20/19 09:59 Dose: Not Given Documented by: [id number] Infusion: 11/20/19 09:59 Dose: 0 mls/hr Documented by: [id number] Admin: 11/20/19 01:06 Dose: 125 mls/hr Documented by: [id number] Acetaminophen (Ofirmev) 1,000 mg in 100 mls @ 400 mls/hr IV NOW STA Stop: 11/20/19 04:26 Last Infusion: 11/20/19 04:47 Dose: 0 mls/hr Documented by: [id number] Admin: 11/20/19 04:26 Dose: 400 mls/hr Documented by: [id number] Ketorolac Tromethamine (Toradol) 10 mg IV NOW ONE Stop: 11/20/19 04:13 Last Admin: 11/20/19 04:26 Dose: 10 mg Documented by: [id number] Methadone HCl (Dolophine) 10 mg PO NOW STA Stop: 11/20/19 07:25 Last Admin: 11/20/19 07:55 Dose: 10 mg Documented by: [id number] Oxycodone HCl (Roxicodone Immediate Rel) 10 mg PO NOW STA Stop: 11/20/19 17:01 Last Admin: 11/20/19 17:08 Dose: 10 mg Documented by: [id number] Medical Decision Making Differential Diagnosis Differential diagnoses include major intracranial, cervical, spinal, thoracic, abdominal, pelvic and neurologic injury. Fracture, contusion, sprain, strain, laceration, abrasions included as well. Medical Records Attestation: I reviewed the patient's medical records. Home Medications Current Medication List: was personally reviewed by sc Laboratory Data Attestation: I reviewed the patient's lab results. Result diagrams: 11/21/19 06:21 11/21/19 06:21 Lab Results 11/20/19 11/20/19 11/20/19 Range/Units 00:10 00:10 00:10 WBC 12.83 H (4.8-10.8) K/uL RBC 4.84 (4.7-6.1) M/uL Hgb 15.2 (14.0-18.0) g/dL Hct 44.1 (42-52) % MCV 91.1 (80-100) fL MCH 31.4 (25-34) pg MCHC 34.5 (32-36) g/dL RDW Std Deviation 43.8 (36.4-46.3) fL RDW Coeff of Stephen 13.3 (11.5-14.5) % Plt Count 294 (130-400) K/uL MPV 9.8 (7.4-10.4) fL Immature Gran % (Auto) 0.2 % Neut % (Auto) 81.7 % Lymph % (Auto) 14.0 % Grant % (Auto) 3.4 % Eos % (Auto) 0.5 % Baso % (Auto) 0.2 % Immature Gran # (Auto) 0.02 (0.00-0.02) K/uL Neut # (Auto) 10.47 H (1.4-6.5) K/uL Lymph # (Auto) 1.80 (1.2-3.4) K/uL Grant # (Auto) 0.44 (0.11-0.59) K/uL Eos # (Auto) 0.07 (0-0.5) K/uL Baso # (Auto) 0.03 (0-0.2) K/uL PT 10.5 (9.0-12.0) Seconds INR 1.0 (0.9-1.1) Sodium 140 (136-145) mmol/L Potassium 3.5 (3.5-5.1) mmol/L Chloride 104 (98-107) mmol/L Carbon Dioxide 27 (21-32) mmol/L Anion Gap 9.0 (3-11) BUN 16 (7-18) mg/dl Creatinine 0.95 (0.6-1.4) mg/dl Est Cr Clr Drug Dosing 68.1 ml/min Est GFR ( Amer) 97.7 Est GFR (Non-Af Amer) 84.3 BUN/Creatinine Ratio 17.1 (10-20) Glucose 109 H (70-99) mg/dl Calcium 8.8 (8.5-10.1) mg/dl Magnesium 2.4 (1.8-2.4) mg/dl Total Bilirubin 0.8 (0.2-1) mg/dl AST 21 (15-37) U/L ALT 19 (12-78) U/L Alkaline Phosphatase 93 (45-117) U/L Total Creatine Kinase 335 H (39-308) U/L Troponin I < 0.015 (0-0.045) ng/ml NT-Pro-B Natriuret Pep 28 (0-900) pg/ml Total Protein 7.2 (6.4-8.2) gm/dl Albumin 3.9 (3.4-5.0) gm/dl Globulin 3.3 (2.5-4.0) gm/dl Albumin/Globulin Ratio 1.2 (0.9-2) Lipase 306 (73-393) U/L TSH 0.301 (0.300-4.500) uIu/ml Urine Color Urine Appearance (Clear) Urine pH (4.5-7.5) Ur Specific [place] (1.000-1.030) Urine Protein (Negative) Urine Glucose (UA) (Negative) Urine Ketones (Negative) Urine Blood (Negative) Urine Nitrite (Negative) Urine Bilirubin (Negative) Urine Urobilinogen (Negative) Ur Leukocyte Esterase (Negative) Urine Opiates Screen (Neg) Ur Methadone, Qual (Neg) Urine Barbiturates (Neg) Ur Phencyclidine (PCP) (Neg) U Amphetamin/Meth Scrn (Neg) MDMA (Ecstasy) Screen (Neg) U Benzodiazepines Scrn (Neg) Ur Cocaine Metabolite (Neg) U Marijuana (THC) Screen (Neg) Ethyl Alcohol mg/dL (0-3) mg/dl 11/20/19 11/20/19 11/20/19 Range/Units 00:19 01:00 01:00 WBC (4.8-10.8) K/uL RBC (4.7-6.1) M/uL Hgb (14.0-18.0) g/dL Hct (42-52) % MCV (80-100) fL MCH (25-34) pg MCHC (32-36) g/dL RDW Std Deviation (36.4-46.3) fL RDW Coeff of Stephen (11.5-14.5) % Plt Count (130-400) K/uL MPV (7.4-10.4) fL Immature Gran % (Auto) % Neut % (Auto) % Lymph % (Auto) % Grant % (Auto) % Eos % (Auto) % Baso % (Auto) % Immature Gran # (Auto) (0.00-0.02) K/uL Neut # (Auto) (1.4-6.5) K/uL Lymph # (Auto) (1.2-3.4) K/uL Grant # (Auto) (0.11-0.59) K/uL Eos # (Auto) (0-0.5) K/uL Baso # (Auto) (0-0.2) K/uL PT (9.0-12.0) Seconds INR (0.9-1.1) Sodium (136-145) mmol/L Potassium (3.5-5.1) mmol/L Chloride (98-107) mmol/L Carbon Dioxide (21-32) mmol/L Anion Gap (3-11) BUN (7-18) mg/dl Creatinine (0.6-1.4) mg/dl Est Cr Clr Drug Dosing ml/min Est GFR ( Amer) Est GFR (Non-Af Amer) BUN/Creatinine Ratio (10-20) Glucose (70-99) mg/dl Calcium (8.5-10.1) mg/dl Magnesium (1.8-2.4) mg/dl Total Bilirubin (0.2-1) mg/dl AST (15-37) U/L ALT (12-78) U/L Alkaline Phosphatase (45-117) U/L Total Creatine Kinase (39-308) U/L Troponin I (0-0.045) ng/ml NT-Pro-B Natriuret Pep (0-900) pg/ml Total Protein (6.4-8.2) gm/dl Albumin (3.4-5.0) gm/dl Globulin (2.5-4.0) gm/dl Albumin/Globulin Ratio (0.9-2) Lipase (73-393) U/L TSH (0.300-4.500) uIu/ml Urine Color Yellow Urine Appearance Clear (Clear) Urine pH 5.5 (4.5-7.5) Ur Specific [place] 1.014 (1.000-1.030) Urine Protein Negative (Negative) Urine Glucose (UA) Negative (Negative) Urine Ketones Negative (Negative) Urine Blood Negative (Negative) Urine Nitrite Negative (Negative) Urine Bilirubin Negative (Negative) Urine Urobilinogen Negative (Negative) Ur Leukocyte Esterase Negative (Negative) Urine Opiates Screen Neg (Neg) Ur Methadone, Qual Pos H (Neg) Urine Barbiturates Neg (Neg) Ur Phencyclidine (PCP) Neg (Neg) U Amphetamin/Meth Scrn Neg (Neg) MDMA (Ecstasy) Screen Neg (Neg) U Benzodiazepines Scrn Pos H (Neg) Ur Cocaine Metabolite Neg (Neg) U Marijuana (THC) Screen Neg (Neg) Ethyl Alcohol mg/dL < 3.0 (0-3) mg/dl Imaging Data My Impression: X-ray: I interpreted the following studies. Chest/Ribs: A 3 view study of the chest and left ribs was reviewed and was negative for cardiomegaly, focal infiltrate, effusion, pulmonary edema, or wide mediastinum. No evidence of pneumothorax or rib fracture. Pelvis: A single view x-ray of the pelvis was taken, no new fracture dislocation seen. Radiologist's Impression: CT head: Compared to 05/24/2019. Motion artifact. No ICH, mass-effect, or midline shift. Right frontal scalp soft tissue swelling. Nasal bone irregularity. Correlate with focal tenderness regarding possible fracture. Radiologist:Malia Tomlinson MD CT facial: Nasal bone fragmentation with soft tissue swelling compatible with fracture. Minimal sinus disease. Radiologist: Malia Tomlinson MD CT C-spine: Compared to 05/24/2019. Degenerative changes without evidence of acute fracture. Radiologist: Malia Tomlinson MD ECG Data Attestation: I personally reviewed and interpreted this ECG as follows: Indication: + weakness Rate (beats per minute): 101 Rhythm: + sinus tachycardia ECG Intervals/blocks: + Normal QRS and + Normal QT ECG [place]: + Normal ECG ST segments: + Normal ST segments Comparison ECG Date: from (04/2019) Change: no significant change Blood Pressure Blood Pressure Findings: Normal blood pressure MDM Narrative Patient presenting here due to frequent falls and increasing weakness over the last 6 weeks. Patient with obvious evidence on physical exam of frequent falls. While patient's labs were drawn and sent and results were reassuring, patient also sent for imaging due to extensive evidence of bruising. No obvious acute traumatic injury was noted. Nasal bone fractures on CT appeared indeterminate, and patient is fallen 70 times it is unclear when this may have occurred. No evidence of occult infectious etiologies or significant electrolyte abnormalities. Patient was cautiously rehydrated due to concern for mild dehydration. Upon additional questioning, patient with poor social support and resources. Patient likely malnourished as he is only eating 1 meal a day and unable to otherwise get groceries. Patient is still taking his other routine medications which do include chronic pain medication. Given suspected poor nutrition, weight loss, and no decrease in the dosing of his chronic pain medication, I suspect patient is becoming increasingly weak and more fragile, with failure to thrive. I do feel patient is unsafe at this time as he cannot ambulate here with a steady gait. At this time I feel it is unsafe for the patient to be sent home due to his risk of falling and additional subsequent injury. Patient was initially slightly resistant to the idea of additional inpatient evaluation, he was eventually in agreement. We did attempt to perform PT OT evaluation in the ER with subsequent placement inpatient rehab, however we were told PT and OT are no longer performing any ED evaluations. I feel it is reasonable to admit the patient at this time as he will need additional resources, nutrition consult, rehydration and diet, possible medication adjustments. No ectopy or dysrhythmia noted on telemetry. I do not suspect ACS. Patient with a normal and nonfocal neuro exam, I do not suspect acute DIRECTOR OF BUSINESS SYSTEMS pathology. An order was placed for continuous cardiac monitoring. The monitor shows a rate of 80 with normal sinus rhythm. Impression & Plan Weakness, Chronic pain, Ambulatory dysfunction, CHI (closed head injury), Closed fracture nasal bone, Contusion Discharge Plan Visit Data *Final* Discharge Date/Time: 11/20/19 09:43 Chief Complaint: Fall Stated Complaint: fall, pain all over ED Provider: Mary Lo Discharge Problem: Weakness, Chronic pain, Ambulatory dysfunction, CHI (closed head injury), Closed fracture nasal bone, Contusion Patient Disposition: Admitted As Inpatient Discharge Instructions Interventions: ED Discharge Assessment Last Done: 11/20/19 09:43 Discharge Problem: Chronic pain Qualifiers: Chronic pain type: chronic pain syndrome Qualified Code(s): G89.4 - Chronic pain syndrome CHI (closed head injury) Qualifiers: Encounter type: initial encounter Qualified Code(s): S09.90XA - Unspecified injury of head, initial encounter Closed fracture nasal bone Qualifiers: Encounter type: initial encounter Qualified Code(s): S02.2XXA - Fracture of nasal bones, initial encounter for closed fracture Contusion Qualifiers: Encounter type: initial encounter Contusion area: head Contusion of head detail: nose Qualified Code(s): S00.33XA - Contusion of nose, initial encounter
[2019-11-20 01:51] LABS: Amphetamines+Metham, Urine Neg (Neg); Barbiturates, Urine Neg (Neg); Benzodiazepine, Urine Pos (Neg); Cocaine, Urine Neg (Neg); MDMA (Ecstacy), Urine Neg (Neg); Methadone, Urine Pos (Neg); Opiate, Urine Neg (Neg); Phencyclidine, Urine Neg (Neg)
[2019-11-20] MEDS ORDERED: fentaNYL citrate 100 MCG/2 ML VIAL ONE (02:01)
[2019-11-20] MEDS ORDERED: fentaNYL citrate 100 MCG/2 ML VIAL IV STA (02:03)
[2019-11-20] MEDS ORDERED: ACETAMINOPHEN 1,000 MG/100 ML VIAL IV STA (04:12)
[2019-11-20] MEDS ORDERED: KETOROLAC TROMETHAMINE 15 MG/ML VIAL IV ONE (04:12)
[2019-11-20] MEDS ORDERED: GABAPENTIN 300 MG CAP PO STA (07:09)
[2019-11-20] MEDS ORDERED: METHADONE HCL 10 MG TAB PO STA (07:09)
[2019-11-20] MEDS ORDERED: METHADONE HCL 5 MG TAB PO STA (07:24)
[2019-11-20] MEDS ORDERED: ALPRAZolam 0.5 MG TABLET PO STA (07:44)
--- NOTE | 2019-11-20 08:20 | XRay Report ---
XR pelvis 1-2V routine CLINICAL HISTORY: trauma COMPARISON: Pelvis radiograph May 24, 2019. FINDINGS: The sacroiliac joints and symphysis pubis are intact. There is no acute fracture within th e pelvis or hips. IMPRESSION: No acute fracture within the pelvis or hips. ACT 112: Negative or not required by law. Electronically signed by: Mode Real M.D. 11/20/2019 8:19 AM
--- NOTE | 2019-11-20 08:23 | XRay Report ---
XR ribs LT min 3V w CXR1V CLINICAL HISTORY: trauma COMPARISON: Chest CT and chest radiograph May 24, 2019. FINDINGS: Elevation of the left hemidiaphragm is unchanged. Left basilar opacity favors atelectasis. Cardiac size is normal. Appearance of the chest is unchanged. No acute left rib fractures are identi fied. IMPRESSION: 1. No pneumothorax. No acute left rib fractures. 2. No change in appearance of the chest. ACT 112: Negative or not required by law. Electronically signed by: Mode Real M.D. 11/20/2019 8:22 AM
--- NOTE | 2019-11-20 09:07 | CT Scan Report ---
CT OF THE HEAD WITHOUT CONTRAST CLINICAL HISTORY: trauma COMPARISON STUDY: Head CT and MRI of the brain May 24, 2019. CT DOSE: 1094.28 mGy.cm TECHNIQUE: Helical axial images of the head were obtained without IV contrast. Automated exposure con trol was utilized for the study. A dose lowering technique was utilized adhering to the principles o f ALARA. FINDINGS: No acute intracranial hemorrhage, midline shift or mass effect is present. The ventricular system is unremarkable. The basilar cisterns are patent. No extra-axial collections are present. Ther e are no findings to suggest acute dural sinus thrombosis or acute territorial infarct. No significan t calvarial abnormalities are present. Visualized portions of the sinuses and mastoid air cells are c lear. A small right frontal scalp contusion is noted. IMPRESSION: 1. No acute intracranial findings. 2. Small right frontal scalp contusion. No calvarial fracture. ACT 112: Negative or not required by law. Electronically signed by: Mode Real M.D. 11/20/2019 9:05 AM
--- NOTE | 2019-11-20 09:08 | History & Physical Report ---
Date of Service November 20, 2019 Assessment & Plan (1) Ambulatory dysfunction: Mechanical. Likely combination of polypharmacy and cervical stenosis. Pelvis xray without fracture, chest/ribs without fracture, facial CT with nasal fx, Head CT negative for acute intracranial findings. Cervical spine with severe multilevel facet arthrosis and DDD. Hx Etoh although drug screen only + for methadone/benzos. UA negative for infection. Afebrile. WBC slightly elevated at 12.8k. * Admit medical * PT/OT * CM -- will need assistance with d/c planning * Fall precautions. OOB with assistance only * Orthopedic consult -- appreciate input * B12, B1, folate pending * CK 335 * TSH wnl * NS @ 80cc/hr * Supportive care (2) Fall: * Multiple falls at home over past 6 weeks (3) Weakness: * Secondary to spinal stenosis/polypharmacy * PT/OT as above * CM (4) Chronic pain: * Continue home methadone, gabapentin, buspar * Oxycodone on hold * Toradol prn (5) Closed fracture nasal bone: * Noted (6) Contusion: * Noted (7) Anxiety and depression: * Chronic. * Continue home buspirone 15mg TID, alprazolam 0.5mg TID prn (8) Protein malnutrition: * Secondary to chronic etoh use * Teacher Learning Disabled consult (9) Opioid dependence: * Noted. On methadone, oxycodone, gabapentin as outpatient * See above (10) Acid reflux: * Continue home pantoprazole 40mg (11) Degenerative cervical spinal stenosis: * Ortho consult as above (12) Hyperlipidemia: * Continue home atorvastatin (13) Low back pain: (14) Spinal stenosis: (15) Neuropathy: Continue home gabapentin (16) DVT prophylaxis: * SCDs, Lovenox Dispo: lives alone. will need assistance with placement. SonJules Jr [phone]. Daughter lives in [place]. Requesting if placement on d/c that it NOT be [facility] History of Present Illness Chief Complaint: Falls Primary Care Provider: Hernando Morelos MD 63 male with PMHx significant for falls, opioid dependence, chronic pain, cervical spinal stenosis, hx Etoh abuse, neuropathy, HLD presented to the emergency room for multiple falls and weakness. Patient states this has been going on for multiple weeks and that he feels as if his legs just "give out on him" and he falls. He confirms hitting his head but denies LOC. States he lives at home alone and uses a cane but has been increasingly unsteady. He has been previously worked up for spinal surgery but was awaiting further evaluation to see which area of his spine would need intervention first. He believes he has been seen by Dr. Álvarez or is supposed to have follow-up with him. He states he is having pain all over and he had previously broken ribs on his left side. He states he has only been getting one meal a day from [employer] and that his closest family contact is a son. He states he has been on chronic opioids for pain management and has been on a combination of methadone, oxycodone and xanax for anxiety for approximately seven years. He does confirm that he used to drink more freuqently but states he only has a drink on special occasions now, approximately once every week or every other week. He denies taking alcohol with his medications and does not believe his falls had correlated with after him taking his medications. He denies syncope or feeling like he is going to pass out. Endorses numbness and tingling to lateral aspects of bilateral upper extremities as well as numbness down both legs. He denies loss of sensation to the bottoms of his feet. He denies any saddle paresthesias or loss of bowel or bladder function. He denies typical chest pain, but does have some point tenderness to chest wall from previous fractured ribs. ER Course: IVF with NSS @ 125/hr. Fentanyl 50mcg IV x 1. Tylenol 1gm x 1. Toradol 10mg IV x 1. CXR negative for pneumothorax or acute fracture. Pelvis X- ray without acute fracture. Head CT without acute intracranial findings, small R frontal scalp contusion. Face CT with mildly displaced right nasal bone fracture. CT Cervical Spine without acute fracture or subluxation although notes severe multilevel facet arthrosis and degenerative disc disease. CBC with WBC 12.83k, CMP unremarkable. CK elevated at 335. Trop <0.015. Lipase 306. Drug screen positive for methadone and benzodiazepines. UA negative. Allergies Allergy/AdvReac Type Severity Reaction Status Date / Time erythromycin base Allergy Intermediate Rash Verified 11/20/19 01:48 Home Medications Home Medications Medication Instructions Recorded Confirmed Type naloxone 4 mg/actuation nasal spray 1 sprays INTNAS Q2M #2 ea 02/01/19 11/20/19 Rx acetaminophen [Mapap 650 mg PO Q6H PRN #15 tab 03/03/19 11/20/19 Rx (acetaminophen)] bisacodyl 10 mg WA Q72H PRN #16 ea 03/03/19 11/20/19 Rx polyethylene glycol 3350 [Miralax] 17 g PO DAILY #30 ea 03/03/19 11/20/19 Rx furosemide 20 mg PO DAILY 05/24/19 11/20/19 History sennosides-docusate sodium 1 tab PO BID PRN 05/24/19 11/20/19 History [Senna-S] diclofenac sodium [Voltaren] 4 g EXT QID #100 gm 05/27/19 11/20/19 Rx buspirone 15 mg tablet 15 mg PO TID #90 tab 08/05/19 11/20/19 Rx gabapentin 300 mg capsule 300 mg PO TID #90 cap 08/12/19 11/20/19 Rx pantoprazole 40 mg tablet,delayed 40 mg PO QAM #30 tab 09/02/19 11/20/19 Rx release atorvastatin 10 mg tablet 10 mg PO DAILY #30 tab 09/23/19 11/20/19 Rx methadone 10 mg tablet 10 mg PO Q8H PRN #90 tab 10/31/19 11/20/19 Rx methylphenidate HCl 10 mg tablet 10 mg PO TID #84 tab 10/31/19 11/20/19 Rx oxycodone 10 mg tablet 10 mg PO BID PRN #60 tab 10/31/19 11/20/19 Rx alprazolam 0.5 mg tablet 0.5 mg PO TID PRN #90 tab 11/15/19 11/20/19 Rx Past Med/Surg History Medical History Acidosis, lactic (Inactive) Alcohol intoxication (Inactive) Anxiety (Acute) Arthritis (Acute) Bilateral lower leg cellulitis Degenerative cervical spinal stenosis (Acute) Depression Hearing difficulty (Acute) Hyperlipidemia (Acute) Left rib fracture (Inactive) Neuropathy Pneumonia (Inactive) Sepsis (Inactive) Spinal stenosis Stomach ulcer (Resolved) Surgical History History of hernia repair History of oral surgery Family History Mother Anxiety Depression Cardiac disorder Hypertension Diabetes Mesothelioma Father Mesothelioma Diabetes Brother Diabetes Other No significant family history Social History (Updated 11/20/19 @ 11:38 by Martine Serrano PA-C) Preferred Language: Mohawk Communication Ability: Effective Technology Intern Required: No Beliefs That Will Affect Care: Hinduism Hinduism Beliefs: MANDAEN marital status: Legally Current Living Situation: Other Current Living Situation Comment: [employer] Other Information That Helps Us Care for You: No Safety Concerns: Feels Safe At This Time Smoking Status: Never smoker Second Hand Exposure: No ; Hx Alcohol Use: Yes Alcohol type: hard liquor Hx Substance Use: Yes substance use type: does not use Last Used Substance: Hours (ago) Review of Systems Review of Systems: All systems reviewed & are unremarkable except as noted in HPI & below Constitutional: + malaise and + weakness; no fever and no chills Eyes: no diplopia and no spots in vision Ear, Nose, Mouth, Throat: no sore throat and no dysphagia Respiratory: no cough and no dyspnea Cardiovascular: + chest pain (chest wall pain); no dyspnea on exertion, no syncope and no edema Gastrointestinal: no abdominal pain, no nausea, no vomiting and no change in stools Genitourinary: no dysuria and no hematuria Musculoskeletal: + back pain and + body aches Integumentary: no rash and no lesions multiple bruises Neurologic: + unsteadiness, + falls, + generalized weakness, + tingling and + numbness; no paresthesia Endocrine: + fatigue; no polyphagia Hematologic / Lymphatic: no coagulopathy and no unexplained weight loss Allergy / Immunological: no cough and no dyspnea Physical Exam Constitutional: + disheveled; + not well nourished, no acute distress and + not well groomed Eyes: + anicteric sclerae and PERRL ENMT: Ears: no hearing impairment and no EAC abnormality Neck: trachea midline, no thyromegaly Respiratory: normal respiratory effort; no respiratory distress and no labored breathing Auscultation: + diminished lung sounds and + crackles (bibasilar fine crackles) Cardiovascular: Rate/Rhythm: regular rate, regular rhythm and + tachycardic Vessels: no JVD Extremities: normal capillary refill; no edema Gastrointestinal (Abdomen): normal bowel sounds, soft, nontender, no hepatosplenomegaly Musculoskeletal: manager civil strength 5/5 b/l UE strength 4/5 LLE, 5/5 RLE Skin: R scalp with dried blood, multiple contusions and areas of ecchymosis to head/face as well as arms and distal extremities, L chest wall midline incision from previous abdominal surgery Neurologic: deep tendon reflexes 2+ bilaterally and awake Psychiatric: Orientation: alert, oriented to person and oriented to place Apperance: + disheveled Insight: + limited insight Genitourinary: no CVA tenderness Lymphatic: no cervical or axillary lymphadenopathy Results & Data Results & Data ([facility]) Vital Signs (Past 12 Hours) Vital Signs Temp Pulse Pulse Resp BP BP Pulse Ox 11/20/19 08:03 94 H 16 119/90 11/20/19 06:00 85 20 99/72 L 97 11/20/19 04:07 97 H 20 144/93 H 97 11/20/19 03:05 82 20 121/88 96 11/20/19 01:19 102 H 20 121/97 97 11/20/19 00:03 36.8 C 101 H 20 131/93 95 Laboratory Results 11/20/19 11/20/19 11/20/19 Range/Units 09:58 09:58 01:00 WBC (4.8-10.8) K/uL RBC (4.7-6.1) M/uL Hgb (14.0-18.0) g/dL Hct (42-52) % MCV (80-100) fL MCH (25-34) pg MCHC (32-36) g/dL RDW Std Deviation (36.4-46.3) fL RDW Coeff of Stephen (11.5-14.5) % Plt Count (130-400) K/uL MPV (7.4-10.4) fL Immature Gran % (Auto) % Neut % (Auto) % Lymph % (Auto) % [place] % (Auto) % Eos % (Auto) % Baso % (Auto) % Immature Gran # (Auto) (0.00-0.02) K/uL Neut # (Auto) (1.4-6.5) K/uL Lymph # (Auto) (1.2-3.4) K/uL [place] # (Auto) (0.11-0.59) K/uL Eos # (Auto) (0-0.5) K/uL Baso # (Auto) (0-0.2) K/uL PT (9.0-12.0) Seconds INR (0.9-1.1) Sodium (136-145) mmol/L Potassium (3.5-5.1) mmol/L Chloride (98-107) mmol/L Carbon Dioxide (21-32) mmol/L Anion Gap (3-11) BUN (7-18) mg/dl Creatinine (0.6-1.4) mg/dl Est Cr Clr Drug Dosing ml/min Est GFR ( Amer) Est GFR (Non-Af Amer) BUN/Creatinine Ratio (10-20) Glucose (70-99) mg/dl Calcium (8.5-10.1) mg/dl Magnesium (1.8-2.4) mg/dl Total Bilirubin (0.2-1) mg/dl AST (15-37) U/L ALT (12-78) U/L Alkaline Phosphatase (45-117) U/L Total Creatine Kinase (39-308) U/L Troponin I (0-0.045) ng/ml NT-Pro-B Natriuret Pep (0-900) pg/ml Total Protein (6.4-8.2) gm/dl Albumin (3.4-5.0) gm/dl Globulin (2.5-4.0) gm/dl Albumin/Globulin Ratio (0.9-2) Lipase (73-393) U/L Vitamin B1 Pending Vitamin B12 456 (211-911) pg/ml Folate 9.58 (>5.38) ng/ml TSH (0.300-4.500) uIu/ml Urine Color Urine Appearance (Clear) Urine pH (4.5-7.5) Ur Specific [place] (1.000-1.030) Urine Protein (Negative) Urine Glucose (UA) (Negative) Urine Ketones (Negative) Urine Blood (Negative) Urine Nitrite (Negative) Urine Bilirubin (Negative) Urine Urobilinogen (Negative) Ur Leukocyte Esterase (Negative) Urine Opiates Screen (Neg) Ur Methadone, Qual (Neg) U Methadone Metabolites Pending Ur Methadone Confirm Pending Urine Barbiturates (Neg) Ur Phencyclidine (PCP) (Neg) U Amphetamin/Meth Scrn (Neg) MDMA (Ecstasy) Screen (Neg) U OH-Alprazolam Confrm Pending U Benzodiazepines Scrn (Neg) 7-Amino Clonazepam Pending Ur Nordiazepam Confirm Pending U OH-ethylflurazepam Pending U Lorazepam Cnf GC/MS Pending U Oxazepam Confm GC/MS Pending Ur Temazepam Confirm Pending U OH-Triazolam Confirm Pending U OH-Midazolam Confirm Pending Ur Cocaine Metabolite (Neg) U Marijuana (THC) Screen (Neg) Drug Screen Comment Pending Ethyl Alcohol mg/dL (0-3) mg/dl 11/20/19 11/20/19 11/20/19 Range/Units 01:00 01:00 00:19 WBC (4.8-10.8) K/uL RBC (4.7-6.1) M/uL Hgb (14.0-18.0) g/dL Hct (42-52) % MCV (80-100) fL MCH (25-34) pg MCHC (32-36) g/dL RDW Std Deviation (36.4-46.3) fL RDW Coeff of Stephen (11.5-14.5) % Plt Count (130-400) K/uL MPV (7.4-10.4) fL Immature Gran % (Auto) % Neut % (Auto) % Lymph % (Auto) % [place] % (Auto) % Eos % (Auto) % Baso % (Auto) % Immature Gran # (Auto) (0.00-0.02) K/uL Neut # (Auto) (1.4-6.5) K/uL Lymph # (Auto) (1.2-3.4) K/uL [place] # (Auto) (0.11-0.59) K/uL Eos # (Auto) (0-0.5) K/uL Baso # (Auto) (0-0.2) K/uL PT (9.0-12.0) Seconds INR (0.9-1.1) Sodium (136-145) mmol/L Potassium (3.5-5.1) mmol/L Chloride (98-107) mmol/L Carbon Dioxide (21-32) mmol/L Anion Gap (3-11) BUN (7-18) mg/dl Creatinine (0.6-1.4) mg/dl Est Cr Clr Drug Dosing ml/min Est GFR ( Amer) Est GFR (Non-Af Amer) BUN/Creatinine Ratio (10-20) Glucose (70-99) mg/dl Calcium (8.5-10.1) mg/dl Magnesium (1.8-2.4) mg/dl Total Bilirubin (0.2-1) mg/dl AST (15-37) U/L ALT (12-78) U/L Alkaline Phosphatase (45-117) U/L Total Creatine Kinase (39-308) U/L Troponin I (0-0.045) ng/ml NT-Pro-B Natriuret Pep (0-900) pg/ml Total Protein (6.4-8.2) gm/dl Albumin (3.4-5.0) gm/dl Globulin (2.5-4.0) gm/dl Albumin/Globulin Ratio (0.9-2) Lipase (73-393) U/L Vitamin B1 Vitamin B12 (211-911) pg/ml Folate (>5.38) ng/ml TSH (0.300-4.500) uIu/ml Urine Color Yellow Urine Appearance Clear (Clear) Urine pH 5.5 (4.5-7.5) Ur Specific [place] 1.014 (1.000-1.030) Urine Protein Negative (Negative) Urine Glucose (UA) Negative (Negative) Urine Ketones Negative (Negative) Urine Blood Negative (Negative) Urine Nitrite Negative (Negative) Urine Bilirubin Negative (Negative) Urine Urobilinogen Negative (Negative) Ur Leukocyte Esterase Negative (Negative) Urine Opiates Screen Neg (Neg) Ur Methadone, Qual Pos H (Neg) U Methadone Metabolites Ur Methadone Confirm Urine Barbiturates Neg (Neg) Ur Phencyclidine (PCP) Neg (Neg) U Amphetamin/Meth Scrn Neg (Neg) MDMA (Ecstasy) Screen Neg (Neg) U OH-Alprazolam Confrm U Benzodiazepines Scrn Pos H (Neg) 7-Amino Clonazepam Ur Nordiazepam Confirm U OH-ethylflurazepam U Lorazepam Cnf GC/MS U Oxazepam Confm GC/MS Ur Temazepam Confirm U OH-Triazolam Confirm U OH-Midazolam Confirm Ur Cocaine Metabolite Neg (Neg) U Marijuana (THC) Screen Neg (Neg) Drug Screen Comment Ethyl Alcohol mg/dL < 3.0 (0-3) mg/dl 11/20/19 11/20/19 11/20/19 Range/Units 00:10 00:10 00:10 WBC 12.83 H (4.8-10.8) K/uL RBC 4.84 (4.7-6.1) M/uL Hgb 15.2 (14.0-18.0) g/dL Hct 44.1 (42-52) % MCV 91.1 (80-100) fL MCH 31.4 (25-34) pg MCHC 34.5 (32-36) g/dL RDW Std Deviation 43.8 (36.4-46.3) fL RDW Coeff of Stephen 13.3 (11.5-14.5) % Plt Count 294 (130-400) K/uL MPV 9.8 (7.4-10.4) fL Immature Gran % (Auto) 0.2 % Neut % (Auto) 81.7 % Lymph % (Auto) 14.0 % [place] % (Auto) 3.4 % Eos % (Auto) 0.5 % Baso % (Auto) 0.2 % Immature Gran # (Auto) 0.02 (0.00-0.02) K/uL Neut # (Auto) 10.47 H (1.4-6.5) K/uL Lymph # (Auto) 1.80 (1.2-3.4) K/uL [place] # (Auto) 0.44 (0.11-0.59) K/uL Eos # (Auto) 0.07 (0-0.5) K/uL Baso # (Auto) 0.03 (0-0.2) K/uL PT 10.5 (9.0-12.0) Seconds INR 1.0 (0.9-1.1) Sodium 140 (136-145) mmol/L Potassium 3.5 (3.5-5.1) mmol/L Chloride 104 (98-107) mmol/L Carbon Dioxide 27 (21-32) mmol/L Anion Gap 9.0 (3-11) BUN 16 (7-18) mg/dl Creatinine 0.95 (0.6-1.4) mg/dl Est Cr Clr Drug Dosing 68.1 ml/min Est GFR ( Amer) 97.7 Est GFR (Non-Af Amer) 84.3 BUN/Creatinine Ratio 17.1 (10-20) Glucose 109 H (70-99) mg/dl Calcium 8.8 (8.5-10.1) mg/dl Magnesium 2.4 (1.8-2.4) mg/dl Total Bilirubin 0.8 (0.2-1) mg/dl AST 21 (15-37) U/L ALT 19 (12-78) U/L Alkaline Phosphatase 93 (45-117) U/L Total Creatine Kinase 335 H (39-308) U/L Troponin I < 0.015 (0-0.045) ng/ml NT-Pro-B Natriuret Pep 28 (0-900) pg/ml Total Protein 7.2 (6.4-8.2) gm/dl Albumin 3.9 (3.4-5.0) gm/dl Globulin 3.3 (2.5-4.0) gm/dl Albumin/Globulin Ratio 1.2 (0.9-2) Lipase 306 (73-393) U/L Vitamin B1 Vitamin B12 (211-911) pg/ml Folate (>5.38) ng/ml TSH 0.301 (0.300-4.500) uIu/ml Urine Color Urine Appearance (Clear) Urine pH (4.5-7.5) Ur Specific [place] (1.000-1.030) Urine Protein (Negative) Urine Glucose (UA) (Negative) Urine Ketones (Negative) Urine Blood (Negative) Urine Nitrite (Negative) Urine Bilirubin (Negative) Urine Urobilinogen (Negative) Ur Leukocyte Esterase (Negative) Urine Opiates Screen (Neg) Ur Methadone, Qual (Neg) U Methadone Metabolites Ur Methadone Confirm Urine Barbiturates (Neg) Ur Phencyclidine (PCP) (Neg) U Amphetamin/Meth Scrn (Neg) MDMA (Ecstasy) Screen (Neg) U OH-Alprazolam Confrm U Benzodiazepines Scrn (Neg) 7-Amino Clonazepam Ur Nordiazepam Confirm U OH-ethylflurazepam U Lorazepam Cnf GC/MS U Oxazepam Confm GC/MS Ur Temazepam Confirm U OH-Triazolam Confirm U OH-Midazolam Confirm Ur Cocaine Metabolite (Neg) U Marijuana (THC) Screen (Neg) Drug Screen Comment Ethyl Alcohol mg/dL (0-3) mg/dl PG Care Time/CCT Total # of Minutes Spent Total Time Spent with Patient: Total time spent is greater than 50% in c oordination of care (as documented) at patient's floor/unit and/or counseling patient: Coding Level of Care Code 45568 OBS Care - Level 3 Diagnoses Ambulatory dysfunction R26.2 Fall W19.XXXA Weakness R53.1 Chronic pain G89.4 Chronic pain type: chronic pain syndrome Closed fracture nasal bone S02.2XXA Encounter type: initial encounter Contusion S00.33XA Contusion area: head Contusion of head detail: nose Encounter type: initial encounter Anxiety and depression F41.9; F32.9 Protein malnutrition E46 Opioid dependence F11.20 Acid reflux K21.9 Degenerative cervical spinal stenosis M48.02 Hyperlipidemia E78.5 Low back pain M54.5 Spinal stenosis M48.00 Neuropathy G62.9 DVT prophylaxis Z29.9 (1) Closed fracture nasal bone Encounter type: initial encounter Qualified Code(s): S02.2XXA - Fracture of nasal bones, initial encounter for closed fracture (2) Chronic pain Chronic pain type: chronic pain syndrome Qualified Code(s): G89.4 - Chronic pain syndrome (3) Contusion Contusion area: head Contusion of head detail: nose Encounter type: initial encounter Qualified Code(s): S00.33XA - Contusion of nose, initial encounter
--- NOTE | 2019-11-20 09:10 | CT Scan Report ---
MAXILLOFACIAL CT WITHOUT CONTRAST CLINICAL HISTORY: trauma COMPARISON STUDY: None. TECHNIQUE: A maxillofacial CT was performed without IV contrast. Coronal and sagittal reformats were viewed. Automated exposure control was utilized for the study. A dose lowering technique was utiliz ed adhering to the principles of ALARA. FINDINGS: A small right frontal scalp contusion is noted. There is a mildly displaced right nasal bon e fracture. No additional facial fractures are noted. Orbital floors are intact. There is no skull ba se fracture. Cervical spine will be separately IMPRESSION: Mildly displaced right nasal bone fracture. ACT 112: Negative or not required by law. Electronically signed by: Mode Real M.D. 11/20/2019 9:08 AM
--- NOTE | 2019-11-20 09:17 | CT Scan Report ---
CT OF THE CERVICAL SPINE WITHOUT CONTRAST CLINICAL HISTORY: trauma COMPARISON STUDY: Cervical spine CT May 24, 2019. TECHNIQUE: Helical axial images of the cervical spine were obtained without IV contrast. Sagittal a nd coronal reconstructions were viewed. Automated exposure control was utilized for the study. A do se lowering technique was utilized adhering to the principles of ALARA. FINDINGS: Alignment of the cervical spine is anatomic. Vertebral body heights are maintained. No acut e cervical spine fracture or subluxation is present. There is no prevertebral edema. Facet joints are intact. Severe multilevel facet arthrosis and degenerative disc disease is noted. IMPRESSION: 1. No acute cervical spine fracture or subluxation. 2. Severe multilevel facet arthrosis and degenerative disc disease. ACT 112: Negative or not required by law. Electronically signed by: Mode Real M.D. 11/20/2019 9:15 AM
[2019-11-20] MEDS ORDERED: ALUMINUM/MAGNESIUM SUSP 30 ML UDC PO PRN (09:55)
[2019-11-20] MEDS ORDERED: OXYCODONE HCL IR 5 MG TAB (IMMEDIATE RELEASE) PO PRN ×2 (09:55)
[2019-11-20] MEDS ORDERED: ACETAMINOPHEN 325 MG TAB PO PRN (09:55)
[2019-11-20] MEDS ORDERED: bisacodyL 10 MG SUPP PR PRN (09:55)
--- NOTE | 2019-11-20 10:00 | Electrocardiogram Report ---
Test Reason : Blood Pressure : / mmHG Vent. Rate : 101 BPM Atrial Rate : 101 BPM P-R Int : 132 ms QRS Dur : 080 ms QT Int : 324 ms P-R-T Axes : 056 024 065 degrees QTc Int : 420 ms Sinus tachycardia Otherwise normal ECG When compared with ECG of 24-MAY-2019 13:50, No significant change was found Confirmed by Zechariah Sr ([id number] on 11/20/2019 9:59:51 AM Referred By: REFERRED SELF Confirmed By:Zechariah Sr
[2019-11-20] MEDS: METHADONE HCL 10 MG TAB PO PRN ×2 (10:26→19:10)
[2019-11-20 10:52] LABS: Folate (Folic Acid) 9.58 ng/ml (>5.38)
[2019-11-20] MEDS: PANTOprazole 40 MG TAB PO SCH (10:58)
[2019-11-20] MEDS: GABAPENTIN 300 MG CAP PO SCH ×2 (14:07→21:06)
[2019-11-20] MEDS: DICLOFENAC SOD 1% GEL 100 GM TUBE EXT SCH ×3 (14:07→21:07)
[2019-11-20] MEDS: BusPIRone 15 MG TAB PO SCH ×2 (14:07→21:06)
[2019-11-20] MEDS: METHYLPHENIDATE HCL 10 MG TABLET PO SCH ×2 (14:07→21:06)
--- NOTE | 2019-11-20 14:10 | Magnetic Resonance Report ---
MRI OF THE LUMBAR SPINE WITHOUT CONTRAST CLINICAL HISTORY: Lumbar spine pain. Leg weakness. COMPARISON STUDY: Lumbar spine CT May 24, 2019. TECHNIQUE: Utilizing a 1.5 Ines magnet and dedicated coil, multiplanar, multiecho imaging of the [facility] spine was performed without IV contrast. FINDINGS: For purposes of numbering on this exam, the L5-S1 disc space is assigned to axial image 28 of 32. The re is mild dextroscoliosis of the lumbar spine. There is straightening of the normal lumbar lordosis. There is no fracture or suspicious marrow replacement. There are discogenic changes at the L2-L3 lev el. There is no intracanalicular mass or fluid collection. The conus terminates at the mid L1 level. Paravertebral soft tissues are unremarkable. There is no evidence for discitis or osteomyelitis withi n the lumbar spine. L1-2: There is mild disc bulge with ligamentous hypertrophy and facet arthrosis. This mild narrowing of the central canal, left lateral recess and the left neural foramen. L2-3: There is marked disc space narrowing with disc bulge with ligamentous hypertrophy and facet art hrosis. Moderate central canal stenosis is noted. AP diameter of the chest have canal is 6.4 mm. Ther e is moderate narrowing of the bilateral lateral recesses and mild narrowing of both neural foramen. L3-4: There is disc space narrowing with disc bulge, ligamentous hypertrophy and facet arthrosis. The re is mild to moderate narrowing of the central canal, lateral recesses and left neural foramen with moderate narrowing of the right neural foramen. L4-5: There is disc space narrowing with disc bulge, ligamentous hypertrophy and facet arthrosis. Favian tral canal is patent. There is mild narrowing of the lateral recesses. There is moderate bilateral ne ural foraminal stenosis. L5-S1: There is facet arthrosis. Central canal is patent. Severe right and moderate left neural yumiko inal stenosis is noted. IMPRESSION: 1. Moderate central canal stenosis at L2-L3 due to disc bulge, ligamentous hypertrophy and facet arth rosis. Mild to moderate central canal stenosis at L3-L4. 2. Multilevel neural foraminal stenosis, most pronounced at the right L4-L5 neural foramen. 3. No lumbar spine fracture. 4. Mild dextroscoliosis of the lumbar spine. ACT 112: Negative or not required by law. Electronically signed by: Mode Real M.D. 11/20/2019 2:09 PM
[2019-11-20] MEDS ORDERED: OXYCODONE HCL IR 5 MG TAB (IMMEDIATE RELEASE) PO STA (17:00)
[2019-11-20] MEDS ORDERED: NALOXONE HCL 0.4 MG/1 ML VIAL/CARP IV PRN (17:06)
[2019-11-20] MEDS: ALPRAZolam 0.5 MG TABLET PO PRN (19:12)
[2019-11-20] MEDS: DOCUSATE SODIUM/SENNA 50/8.6MG TAB PO PRN (21:06)
[2019-11-20] MEDS: KETOROLAC TROMETHAMINE 15 MG/ML VIAL IV PRN (23:48)
[2019-11-21] MEDS: METHADONE HCL 10 MG TAB PO PRN ×3 (03:14→20:46)
[2019-11-21] MEDS: ALPRAZolam 0.5 MG TABLET PO PRN ×3 (03:56→20:47)
[2019-11-21 07:28] LABS: BUN Creatinine Ratio 22.1 (10-20); Calcium 7.9 mg/dl (8.5-10.1); Est GFR (African American) 105.7; Est GFR (Non-African American) 91.2; Potassium 3.7 mmol/L (3.5-5.1)
[2019-11-21 07:37] LABS: Basophils # (auto) 0.02 K/uL (0-0.2); Basophils % (auto) 0.2 %; Eosinophils # (auto) 0.22 K/uL (0-0.5); Eosinophils % (auto) 2.5 %; Hematocrit (blood only) 33.8 % (42-52); Hemoglobin 11.3 g/dL (14.0-18.0); Immature Granulocytes # (auto) 0.02 K/uL (0.00-0.02); Immature Granulocytes % (auto) 0.2 %; Lymphocytes # (auto) 1.84 K/uL (1.2-3.4); Lymphocytes % (auto) 20.9 %; Mean Corpuscular Hemoglobin 31.3 pg (25-34); Mean Corpuscular Hgb Conc 33.4 g/dL (32-36); Mean Corpuscular Volume 93.6 fL (80-100); Mean Platelet Volume 9.8 fL (7.4-10.4); Monocytes # (auto) 0.43 K/uL (0.11-0.59); Monocytes % (auto) 4.9 %; Neutrophils # (auto) 6.28 K/uL (1.4-6.5); Neutrophils % (auto) 71.3 %; Platelet Count 210 K/uL (130-400); RDW Coefficient of Variation 13.8 % (11.5-14.5); RDW Standard Deviation 47.3 fL (36.4-46.3); Red Blood Count 3.61 M/uL (4.7-6.1); White Blood Count 8.81 K/uL (4.8-10.8)
[2019-11-21] MEDS: POLYETHYLENE (MIRALAX) 17 GM PACK PO SCH (08:03)
[2019-11-21] MEDS: ATORVASTATIN 10 MG TAB PO SCH (08:03)
[2019-11-21] MEDS: ENOXAPARIN INJ 40 MG/0.4 ML SYR SQ SCH (08:03)
[2019-11-21] MEDS: PANTOprazole 40 MG TAB PO SCH (08:03)
[2019-11-21] MEDS: FUROSEMIDE 20 MG TAB PO SCH (08:03)
[2019-11-21] MEDS: BusPIRone 15 MG TAB PO SCH ×3 (08:03→20:48)
[2019-11-21] MEDS: GABAPENTIN 300 MG CAP PO SCH ×3 (08:04→20:47)
[2019-11-21] MEDS: DICLOFENAC SOD 1% GEL 100 GM TUBE EXT SCH ×5 (08:04→20:47)
[2019-11-21] MEDS: METHYLPHENIDATE HCL 10 MG TABLET PO SCH ×3 (08:07→20:47)
[2019-11-21] MEDS: SODIUM CHLORIDE 0.9% 1000ML 1,000 ML IV SCH ×2 (11:12→23:41)
--- NOTE | 2019-11-21 12:42 | Hospitalist Progress Note ---
Date of Service November 21, 2019 Assessment & Plan (1) Ambulatory dysfunction: Mechanical. Likely combination of polypharmacy and cervical stenosis. Pelvis xray without fracture, chest/ribs without fracture, facial CT with nasal fx, Head CT negative for acute intracranial findings. Cervical spine with severe multilevel facet arthrosis and DDD. Hx Etoh although drug screen only + for methadone/benzos. UA negative for infection. Afebrile. WBC slightly elevated at 12.8k. * observation status until 9am tomorrow * patient doing quite well with PT/OT, click scores 22 for each, walked 400 feet without walker today, can go home with home therapy * patient wants to go home tomorrow * he feels that his weakness is due to lack of food, hoping to get motorized scooter when he turns 64 * plan to d/c home after breakfast tomorrow (2) Fall: * Multiple falls at home over past 6 weeks * no focal neurological deficits * has small nasal bone fracture (3) Weakness: * Secondary to spinal stenosis/polypharmacy * PT/OT as above * CM planning for home therapy and home health (4) Chronic pain: * Continue home methadone, gabapentin, buspar * Oxycodone on hold for now, doing fine without it * Toradol prn (5) Closed fracture nasal bone: * Noted (6) Contusion: * Noted (7) Anxiety and depression: * Chronic. * Continue home buspirone 15mg TID, alprazolam 0.5mg TID prn (8) Protein malnutrition: * Secondary to chronic etoh use * Process Chemist consult * has not been able to get food, meals on wheels only once a day * d/w CM, see if he can other services, no local family to help him with food (9) Opioid dependence: * Noted. On methadone, oxycodone, gabapentin as outpatient * See above (10) Acid reflux: * Continue home pantoprazole 40mg (11) Degenerative cervical spinal stenosis: * Ortho consult as above (12) Hyperlipidemia: * Continue home atorvastatin (13) Low back pain: (14) Spinal stenosis: disease in lumbar spine is moderate, do not see a need for surgery at this time (15) Neuropathy: Continue home gabapentin (16) DVT prophylaxis: * SCDs, Lovenox Dispo: lives alone. will need assistance with placement. Jules Daigle Jr [phone]. Daughter lives in [place]. Requesting if placement on d/c that it NOT be [facility] Admission and Anticipated Discharge Date Admission Date: November 20, 2019 Subjective patient doing much better since he has been hospitalized strength is greatly improved, ambulated 400 feet today without rolling walker click scores for OT and PT were 22, clear to go home with home health, home therapy he says that his issue is getting food, only gets one meal a day with [employer] normally he can go to the store but due to pain in neck and back he has not been able to walk to his car he is eating a lot of food here in the hospital reviewed imaging, MRI lumbar spine with moderate disease but nothing severe more severe arthritic changes in the cervical spine he says he has no local family, his son lives in [place] but he has no contact with him his sister lives in [place], cannot help him Review of Systems Review of Systems: All systems reviewed & are unremarkable except as noted in HPI & below Constitutional: + weakness; no fever and no fatigue Respiratory: no cough and no dyspnea Cardiovascular: no chest pain, no palpitations, no syncope and no edema Gastrointestinal: no abdominal pain, no nausea, no vomiting, no constipation and no diarrhea/loose stools Musculoskeletal: + back pain, + neck pain and + joint pain Physical Exam Constitutional: well developed and + thin; no acute distress Eyes: PERRL, conjunctivae normal, anicteric sclerae ENMT: external ear and nose normal, oropharynx normal Neck: trachea midline, no thyromegaly Respiratory: normal respiratory effort, lungs clear to auscultation Cardiovascular: RRR, no murmur, no edema Gastrointestinal (Abdomen): normal bowel sounds, soft, nontender, no hepatosplenomegaly Musculoskeletal: Head/Neck/Chest: normocephalic, head atraumatic and + limited ROM of neck Spine: + limited thoraco-lumbar ROM and + paraspinal tenderness Extremities: extremities normal to inspection and strength 5/5 throughout; no cyanosis and no clubbing Skin: no rashes, warm and dry Neurologic: patellar DTR's 2+ bilat, sensation intact and PERRL, EOMI, accommodation nl, no face palsy, no dysarthria Psychiatric: A+Ox3, euthymic affect Lymphatic: no cervical or axillary lymphadenopathy Results & Data Results & Data ([facility]) Vital Signs (Past 12 Hours) Vital Signs Temp Pulse Resp BP Pulse Ox 11/21/19 07:28 36.2 C L 79 18 113/74 93 Laboratory Results Laboratory Results - last 24 hr 11/21/19 11/21/19 06:21 06:21 WBC 8.81 RBC 3.61 L Hgb 11.3 L D Hct 33.8 L MCV 93.6 MCH 31.3 MCHC 33.4 RDW Std Deviation 47.3 H RDW Coeff of Stephen 13.8 Plt Count 210 MPV 9.8 Immature Gran % (Auto) 0.2 Neut % (Auto) 71.3 Lymph % (Auto) 20.9 Crenshaw % (Auto) 4.9 Eos % (Auto) 2.5 Baso % (Auto) 0.2 Immature Gran # (Auto) 0.02 Neut # (Auto) 6.28 Lymph # (Auto) 1.84 Crenshaw # (Auto) 0.43 Eos # (Auto) 0.22 Baso # (Auto) 0.02 Sodium 142 Potassium 3.7 Chloride 107 Carbon Dioxide 25 Anion Gap 10.0 BUN 19 H Creatinine 0.87 Est Cr Clr Drug Dosing 67.0 Est GFR ( Amer) 105.7 Est GFR (Non-Af Amer) 91.2 BUN/Creatinine Ratio 22.1 H Glucose 97 Calcium 7.9 L Medications Administered Current Inpatient Medications Acetaminophen (Tylenol) 650 mg PO Q4H PRN PRN Reason: pain/fever Stop: 12/20/19 09:54 Al Hydrox/Mg Hydrox/Simethicone (Maalox) 30 ml PO Q6H PRN PRN Reason: Dyspepsia Stop: 12/20/19 09:54 Alprazolam (Xanax) 0.5 mg PO TID PRN PRN Reason: anxiety Stop: 12/20/19 09:54 Last Admin: 11/21/19 12:11 Dose: 0.5 mg Documented by: Atorvastatin Calcium (Lipitor) 10 mg PO DAILY [facility] Stop: 12/21/19 08:59 Last Admin: 11/21/19 08:03 Dose: 10 mg Documented by: Bisacodyl (Dulcolax) 10 mg WA Q72H PRN PRN Reason: constipation Stop: 12/20/19 09:54 Buspirone HCl (Buspar) 15 mg PO TID [facility] Stop: 12/20/19 13:59 Last Admin: 11/21/19 08:03 Dose: 15 mg Documented by: Diclofenac Sodium (Voltaren 1% Top) 4 gm EXT QID [facility] Stop: 12/20/19 12:59 Last Admin: 11/21/19 08:13 Dose: Not Given Documented by: Enoxaparin Sodium (Lovenox) 40 mg SQ QAM [facility] Stop: 12/21/19 08:59 Last Admin: 11/21/19 08:03 Dose: 40 mg Documented by: Furosemide (Lasix) 20 mg PO DAILY [facility] Stop: 12/21/19 08:59 Last Admin: 11/21/19 08:03 Dose: 20 mg Documented by: Gabapentin (Neurontin) 300 mg PO TID [facility] Stop: 12/20/19 13:59 Last Admin: 11/21/19 08:04 Dose: 300 mg Documented by: Sodium Chloride (Nss 1000ml) 1,000 mls @ 80 mls/hr IV .[id number] [facility] Stop: 12/20/19 09:54 Last Admin: 11/21/19 11:12 Dose: 80 mls/hr Documented by: Ketorolac Tromethamine (Toradol) 15 mg IV Q6H PRN PRN Reason: Pain Stop: 11/25/19 09:54 Last Admin: 11/20/19 23:48 Dose: 15 mg Documented by: Methadone HCl (Dolophine) 10 mg PO Q8H PRN PRN Reason: Pain, Severe Stop: 12/04/19 09:54 Last Admin: 11/21/19 11:12 Dose: 10 mg Documented by: Methylphenidate HCl (Ritalin) 10 mg PO TID [facility] Stop: 12/04/19 13:59 Last Admin: 11/21/19 08:07 Dose: 10 mg Documented by: Naloxone HCl (Narcan) 0.4 mg IV Q2M PRN PRN Reason: RESPIRATORY DEPRESSION Stop: 12/20/19 17:05 Oxycodone HCl (Roxicodone Immediate Rel) 10 mg PO BID PRN PRN Reason: pain Stop: 12/04/19 09:54 Pantoprazole Sodium (Protonix) 40 mg PO QAM [facility] Stop: 12/20/19 10:14 Last Admin: 11/21/19 08:03 Dose: 40 mg Documented by: Polyethylene Glycol (Miralax Powder Packet) 17 gm PO DAILY GREGORY Stop: 12/21/19 08:59 Last Admin: 11/21/19 08:03 Dose: 17 gm Documented by: Senna/Docusate Sodium (Senokot S) 1 tab PO BID PRN PRN Reason: Constipation Stop: 12/20/19 09:54 Last Admin: 11/20/19 21:06 Dose: 1 tab Documented by: PG Care Time/CCT Total # of Minutes Spent Total Time Spent with Patient: Total time spent is greater than 50% in coordination of care (as documented) at patient's floor/unit and/or counseling patient: Coding Level of Care Code 39480 Subseq Obs Care Lvl 2 Diagnoses Ambulatory dysfunction R26.2 Fall W19.XXXA Weakness R53.1 Chronic pain G89.4 Chronic pain type: chronic pain syndrome Closed fracture nasal bone S02.2XXA Encounter type: initial encounter Contusion S00.33XA Contusion area: head Contusion of head detail: nose Encounter type: initial encounter Anxiety and depression F41.9; F32.9 Protein malnutrition E46 Opioid dependence F11.20 Acid reflux K21.9 Degenerative cervical spinal stenosis M48.02 Hyperlipidemia E78.5 Low back pain M54.5 Spinal stenosis M48.00 Neuropathy G62.9 DVT prophylaxis Z29.9 (1) Closed fracture nasal bone Encounter type: initial encounter Qualified Code(s): S02.2XXA - Fracture of nasal bones, initial encounter for closed fracture (2) Chronic pain Chronic pain type: chronic pain syndrome Qualified Code(s): G89.4 - Chronic pain syndrome (3) Contusion Contusion area: head Contusion of head detail: nose Encounter type: initial encounter Qualified Code(s): S00.33XA - Contusion of nose, initial encounter
[2019-11-21] MEDS: KETOROLAC TROMETHAMINE 15 MG/ML VIAL IV PRN ×2 (16:19→23:40)
[2019-11-21] MEDS: DOCUSATE SODIUM/SENNA 50/8.6MG TAB PO PRN (20:46)
[2019-11-22] MEDS: METHADONE HCL 10 MG TAB PO PRN (05:26)
[2019-11-22] MEDS: ALPRAZolam 0.5 MG TABLET PO PRN (05:26)
[2019-11-22] MEDS: ATORVASTATIN 10 MG TAB PO SCH (08:13)
[2019-11-22] MEDS: POLYETHYLENE (MIRALAX) 17 GM PACK PO SCH (08:14)
[2019-11-22] MEDS: BusPIRone 15 MG TAB PO SCH (08:14)
[2019-11-22] MEDS: FUROSEMIDE 20 MG TAB PO SCH (08:14)
[2019-11-22] MEDS: PANTOprazole 40 MG TAB PO SCH (08:14)
[2019-11-22] MEDS: GABAPENTIN 300 MG CAP PO SCH (08:15)
[2019-11-22] MEDS: DICLOFENAC SOD 1% GEL 100 GM TUBE EXT SCH (08:16)
[2019-11-22] MEDS: ENOXAPARIN INJ 40 MG/0.4 ML SYR SQ SCH (08:17)
[2019-11-22] MEDS: METHYLPHENIDATE HCL 10 MG TABLET PO SCH (08:21)
[2019-11-22] MEDS ORDERED: OXYCODONE HCL IR 5 MG TAB (IMMEDIATE RELEASE) PO STA (08:44)
--- NOTE | 2019-11-22 09:54 | Orthopedic Consultation ---
Date of Consultation November 22, 2019 Assessment & Plan (1) Spinal stenosis: I did review the patient's his MRI. He does have evidence of multilevel spondylosis most of his pathology is consistent with his age. There is no severe neural compression or disease. He is still functional. I do not believe he is a surgical candidate at this time. Present on Admission?: Yes History of Present Illness Reason for Consultation: Back pain with difficulty walking Attending Physician: Jethro Robb, DO History of Present Illness This is a 63-year-old male who presents to the hospital with multiple medical issues. Among them is history of chronic persistent back pain and difficulty with ambulation. He states today he is feeling much better. He denies any numbness or tingling into the lower extremities. He has been up and ambulating without difficulty. He states he does have chronic persistent back pain requiring narcotic medication. Allergies Allergy/AdvReac Type Severity Reaction Status Date / Time erythromycin base Allergy Intermediate Rash Verified 11/20/19 01:48 Home Medications Home Medications Medication Instructions Recorded Confirmed Type naloxone 4 mg/actuation nasal spray 1 sprays INTNAS Q2M #2 ea 02/01/19 11/20/19 Rx acetaminophen [Mapap 650 mg PO Q6H PRN #15 tab 03/03/19 11/20/19 Rx (acetaminophen)] bisacodyl 10 mg MA Q72H PRN #16 ea 03/03/19 11/20/19 Rx polyethylene glycol 3350 [Miralax] 17 g PO DAILY #30 ea 03/03/19 11/20/19 Rx furosemide 20 mg PO DAILY 05/24/19 11/20/19 History sennosides-docusate sodium 1 tab PO BID PRN 05/24/19 11/20/19 History [Senna-S] diclofenac sodium [Voltaren] 4 g EXT QID #100 gm 05/27/19 11/20/19 Rx buspirone 15 mg tablet 15 mg PO TID #90 tab 08/05/19 11/20/19 Rx gabapentin 300 mg capsule 300 mg PO TID #90 cap 08/12/19 11/20/19 Rx pantoprazole 40 mg tablet,delayed 40 mg PO QAM #30 tab 09/02/19 11/20/19 Rx release atorvastatin 10 mg tablet 10 mg PO DAILY #30 tab 09/23/19 11/20/19 Rx methadone 10 mg tablet 10 mg PO Q8H PRN #90 tab 10/31/19 11/20/19 Rx methylphenidate HCl 10 mg tablet 10 mg PO TID #84 tab 10/31/19 11/20/19 Rx oxycodone 10 mg tablet 10 mg PO BID PRN #60 tab 10/31/19 11/20/19 Rx alprazolam 0.5 mg tablet 0.5 mg PO TID PRN #90 tab 11/15/19 11/20/19 Rx Patient History Medical History Acidosis, lactic (Inactive) Alcohol intoxication (Inactive) Anxiety (Acute) Arthritis (Acute) Bilateral lower leg cellulitis Degenerative cervical spinal stenosis (Acute) Depression Hearing difficulty (Acute) Hyperlipidemia (Acute) Left rib fracture (Inactive) Neuropathy Pneumonia (Inactive) Sepsis (Inactive) Spinal stenosis Stomach ulcer (Resolved) Surgical History History of hernia repair History of oral surgery Family History Mother Anxiety Depression Cardiac disorder Hypertension Diabetes Mesothelioma Father Mesothelioma Diabetes Brother Diabetes Other No significant family history Social History (Updated 11/20/19 @ 11:38 by Martine Serrano PA-C) Preferred Language: Swedish Communication Ability: Effective Bite Block Maker Required: No Beliefs That Will Affect Care: Cheondoism Cheondoism Beliefs: JAIN marital status: Legally Current Living Situation: Other Current Living Situation Comment: [facility] Other Information That Helps Us Care for You: No Safety Concerns: Feels Safe At This Time Smoking Status: Never smoker Second Hand Exposure: No ; Hx Alcohol Use: Yes Alcohol type: hard liquor Hx Substance Use: Yes substance use type: does not use Last Used Substance: Hours (ago) Physical Exam Physical Exam: On exam he appears comfortable. He has excellent strength testing. Results & Data ([facility]) Vital Signs (Past 12 Hours) Vital Signs Temp Pulse Resp BP Pulse Ox 11/22/19 07:36 36.6 C 72 18 104/69 91 11/21/19 23:25 36.8 C 87 18 109/75 95
--- NOTE | 2019-11-22 16:55 | Discharge Summary ---
Date of Service November 22, 2019 Admission HPI Per Admitting Provider 63 male with PMHx significant for falls, opioid dependence, chronic pain, cervical spinal stenosis, hx Etoh abuse, neuropathy, HLD presented to the emergency room for multiple falls and weakness. Patient states this has been going on for multiple weeks and that he feels as if his legs just "give out on him" and he falls. He confirms hitting his head but denies LOC. States he lives at home alone and uses a cane but has been increasingly unsteady. He has been previously worked up for spinal surgery but was awaiting further evaluation to see which area of his spine would need intervention first. He believes he has been seen by Dr. Álvarez or is supposed to have follow-up with him. He states he is having pain all over and he had previously broken ribs on his left side. He states he has only been getting one meal a day from [employer] and that his closest family contact is a son. He states he has been on chronic opioids for pain management and has been on a combination of methadone, oxycodone and xanax for anxiety for approximately seven years. He does confirm that he used to drink more freuqently but states he only has a drink on special occasions now, approximately once every week or every other week. He denies taking alcohol with his medications and does not believe his falls had correlated with after him taking his medications. He denies syncope or feeling like he is going to pass out. Endorses numbness and tingling to lateral aspects of bilateral upper extremities as well as numbness down both legs. He denies loss of sensation to the bottoms of his feet. He denies any saddle paresthesias or loss of bowel or bladder function. He denies typical chest pain, but does have some point tenderness to chest wall from previous fractured ribs. ER Course: IVF with NSS @ 125/hr. Fentanyl 50mcg IV x 1. Tylenol 1gm x 1. Toradol 10mg IV x 1. CXR negative for pneumothorax or acute fracture. Pelvis X- ray without acute fracture. Head CT without acute intracranial findings, small R frontal scalp contusion. Face CT with mildly displaced right nasal bone fracture. CT Cervical Spine without acute fracture or subluxation although notes severe multilevel facet arthrosis and degenerative disc disease. CBC with WBC 12.83k, CMP unremarkable. CK elevated at 335. Trop <0.015. Lipase 306. Drug screen positive for methadone and benzodiazepines. UA negative. Principal Diagnosis Weakness and falls at home Discharge Exam Constitutional well developed and + thin; no acute distress Eyes PERRL, conjunctivae normal, anicteric sclerae ENMT external ear and nose normal, oropharynx normal Neck trachea midline, no thyromegaly Respiratory normal respiratory effort, lungs clear to auscultation Cardiovascular RRR, no murmur, no edema Gastrointestinal (Abdomen) normal bowel sounds, soft, nontender, no hepatosplenomegaly Musculoskeletal Head/Neck/Chest: normocephalic, head atraumatic and + limited ROM of neck Spine: + limited thoraco-lumbar ROM and + paraspinal tenderness Extremities: extremities normal to inspection and strength 5/5 throughout; no cyanosis and no clubbing Skin no rashes, warm and dry Neurologic patellar DTR's 2+ bilat, sensation intact and PERRL, EOMI, accommodation nl, no face palsy, no dysarthria Psychiatric A+Ox3, euthymic affect Lymphatic no cervical or axillary lymphadenopathy Discharge Data Allergies Allergy/AdvReac Type Severity Reaction Status Date / Time erythromycin base Allergy Intermediate Rash Verified 11/23/19 10:46 Consultations 11/20/19 08:47 ED Decision to Admit Stat 11/20/19 09:55 Consult Case Management - Discharge Planning Routine Consult Orthopedic Surgery Routine Ordered Studies 11/20/19 00:46 CT cervical spine wo con Urgent CT facial bones wo con Urgent CT head/brain wo con Urgent 11/20/19 10:54 MR lumbar spine wo con Routine Hospital Course (1) Ambulatory dysfunction: Mechanical. Likely combination of polypharmacy and cervical stenosis. Pelvis xray without fracture, chest/ribs without fracture, facial CT with nasal fx, Head CT negative for acute intracranial findings. Cervical spine with severe multilevel facet arthrosis and DDD. Hx Etoh although drug screen only + for methadone/benzos. UA negative for infection. Afebrile. WBC slightly elevated at 12.8k. * patient doing quite well with PT/OT, click scores 22 for each, walked 400 feet without walker today, can go home with home therapy * patient wants to go home and he is safe to go * he feels that his weakness is due to lack of food, hoping to get motorized scooter when he turns 64 so he can get to the food store with more ease, gave him a script for scooter Dr. Álvarez reviewed films, disease is moderate, no indication for surgery (2) Fall: * Multiple falls at home over past 6 weeks * no focal neurological deficits * has small nasal bone fracture patient has very poor oral intake, only gets one meal a day from [employer] program also, he has no teeth and can only eat soft foods so he cannot even eat all the food they give him CM set up home health visits (3) Weakness: * Secondary to poor oral intake, ate all of his meals while here * PT/OT as above * CM planning for home therapy and home health (4) Chronic pain: * Continue home methadone, gabapentin, buspar * Oxycodone on hold for now, doing fine without it * Toradol prn (5) Closed fracture nasal bone: * Noted (6) Contusion: * Noted (7) Anxiety and depression: * Chronic. 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 On methadone, oxycodone, gabapentin as outpatient * See above (10) Acid reflux: * Continue home pantoprazole 40mg (11) Degenerative cervical spinal stenosis: * Ortho consult as above (12) Hyperlipidemia: * Continue home atorvastatin (13) Low back pain: (14) Spinal stenosis: disease in lumbar spine is moderate, do not see a need for surgery at this time (15) Neuropathy: Continue home gabapentin Total Time Total Time Spent Total Time Spent (In Minutes): 25 minutes Total Time Includes: Examination of the Patient, Discharge Planning and Medication Reconciliation Discharge Plan Discharge Items Patient Disposition: Home - Home Health Services Reason For Visit: FALLS Discharge Diagnosis: Weakness and falls Nasal bone fracture Spinal stenosis Condition on Discharge: Good Goals: improve oral intake improve strength with home therapy Activity: Resume your previous activity Exercise/Sports: Gradually increase as tolerated Weightbearing: Full weightbearing Non-emergency contact: Primary Care Provider Call non-emergency contact if: you have any medication questions, your symptoms worsen and you have a fever Follow-up/Referrals: Hernando Morelos III, MD [Primary Care Provider] - (one week) Diet: Regular Addtl Attending Provider Instructions: Medications: no changes suggest that you take less oxycodone, try cutting back to 5mg twice a day need to improve oral intake as your strength was likely impaired with poor oral intake continue with home therapy, follow up with Dr. Morelos about new referral to see Dr. Álvarez as outpatient Pending Studies at Discharge: No Stand-Alone Forms: My [facility] Covocative, Smoking Cessation Medications and DC Order Prescriptions: Continued Narcan 4 mg/actuation spray,non-aerosol 1 sprays INTNAS Q2M Qty: 2 RF: 5 gabapentin 300 mg capsule 300 mg PO TID Qty: 90 RF: 5 pantoprazole 40 mg tablet,delayed release (DR/EC) 40 mg PO QAM Qty: 30 RF: 11 atorvastatin 10 mg tablet 10 mg PO DAILY Qty: 30 RF: 5 methadone 10 mg tablet 10 mg PO Q8H PRN (Reason: Pain, Severe) Qty: 90 RF: 0 methylphenidate HCl 10 mg tablet 10 mg PO TID Qty: 84 RF: 0 oxycodone 10 mg tablet 10 mg PO BID PRN (Reason: pain) Qty: 60 RF: 0 alprazolam 0.5 mg tablet 0.5 mg PO TID PRN (Reason: anxiety) Qty: 90 RF: 0 buspirone 15 mg tablet 15 mg PO TID Qty: 90 RF: 5 acetaminophen [Mapap (acetaminophen)] 325 mg Tablet 650 mg PO Q6H PRN (Reason: Pain, Moderate) Qty: 15 RF: 0 polyethylene glycol 3350 [Miralax] 17 gram Powder In Packet 17 g PO DAILY Qty: 30 RF: 3 bisacodyl 10 mg suppository 10 mg LA Q72H PRN (Reason: constipation) Qty: 16 RF: 0 furosemide 20 mg tablet 20 mg PO DAILY RF: 0 sennosides-docusate sodium [Senna-S] 8.6-50 mg tablet 1 tab PO BID PRN (Reason: Constipation) RF: 0 diclofenac sodium [Voltaren] 1 % Gel 4 g EXT QID Qty: 100 RF: 0 No Action lidocaine 5 % adhesive patch,medicated 1 patch TOP DAILY PRN (Reason: pain) Qty: 15 RF: 0 cefdinir 300 mg capsule 300 mg PO Q12H 7 Days Qty: 14 RF: 0 Discharge Orders: Discharge Order (Routine); Ordered 11/22/19 Ordered By: Jethro Robb Admission Data Admit Date/Time: 11/20/19 09:15 Attending Provider: Jethro Robb Admit Provider: Cezar Cuevas Primary Care Provider: Hernando Morelos III Other Providers: Leobardo Álvarez Other Interventions: Discharge Summary Assessment (RN) Last Done: 11/22/19 09:53 DC Date/Time DO NOT enter until pt leaves facility: 11/22/19 11:00 Coding Level of Care Code 11433 OBS Care - Discharge Diagnoses Ambulatory dysfunction R26.2 Fall W19.XXXA Weakness R53.1 Chronic pain G89.4 Chronic pain type: chronic pain syndrome Closed fracture nasal bone S02.2XXA Encounter type: initial encounter Contusion S00.33XA Contusion area: head Contusion of head detail: nose Encounter type: initial encounter Anxiety and depression F41.9; F32.9 Protein malnutrition E46 Opioid dependence F11.20 Acid reflux K21.9 Degenerative cervical spinal stenosis M48.02 Hyperlipidemia E78.5 Low back pain M54.5 Spinal stenosis M48.00 Neuropathy G62.9
[2019-11-24 04:16] LABS: 7-Aminoclonaz, Confirm NEGATIVE ng/mL (<25); Hydro-Alp Ur, GC/MS 958 ng/mL (<25); Hydroxyethylflurazepam, Conf NEGATIVE ng/mL (<50); Hydroxymidazolam Ur, GC/MS NEGATIVE ng/mL (<50); Hydroxytriazolam NEGATIVE ng/mL (<50); Lorazepam, Ur GC/MS NEGATIVE ng/mL (<50); Methadone, Ur Metabolite 325 ng/mL (<100); Nordiazepam, Confirm NEGATIVE ng/mL (<50); Oxazepam Ur, GC/MS NEGATIVE ng/mL (<50); Temazepam, Confirm NEGATIVE ng/mL (<50)
== END 2019-11-22 11:00 | disposition home health service (06) ==
LOC: ED 23:49 → 2N 23:49 → SUATTDRO 11-20 09:15 → 2N 11-20 09:43
DX: K21.9 Gastro-esophageal reflux disease without esophagitis; R29.6 Repeated falls; M48.00 Spinal stenosis, site unspecified; S00.03XA Contusion of scalp, initial encounter; G89.4 Chronic pain syndrome; F32.9 Major depressive disorder, single episode, unspecified; R53.1 Weakness; E78.5 Hyperlipidemia, unspecified; F11.20 Opioid dependence, uncomplicated; R26.2 Difficulty in walking, not elsewhere classified; Z79.899 Other long term (current) drug therapy; W19.XXXA Unspecified fall, initial encounter; E46 Unspecified protein-calorie malnutrition; S02.2XXA Fracture of nasal bones, initial encounter for closed fracture; F41.9 Anxiety disorder, unspecified

== ENCOUNTER 2020-02-13 17:45 | Inpatient (IN) ==
--- NOTE | 2020-02-13 17:58 | Emergency Department Note ---
Impression & Plan Abdominal pain, Depression, Alcohol abuse ED Provider Note NAME: RK HUNT II AGE: 64 SEX: M : 1955 ARRIVES VIA: Ambulance INFORMANT: Patient, ED PROVIDER(S): Felix Ellis MD Chief Complaint: Abdominal pains, alcohol use HPI: Patient does present with concern for abdominal pains and alcohol use. The patient states that he had had some worsening pain over the last week and had taken more of his at home OxyContin as well as methadone. The patient had been recently seen last week. The patient does admit these he has not taken his narcotics for approximately 7 days. The patient has had increasing abdominal pains are mild and diffuse. He has had an occasional episode of vomiting but denies any blood. The patient has also noticed increased bowel movements that are burning his hemorrhoids. Patient has not tried anything at home. The patient has been drinking alcohol admits to drinking 6 hard cider today. The patient denies any drug use. Patient has not used any tobacco. The patient states that he is ashamed of his self and would consider self-harm. The patient does not have any acute plan and denies HI or AVH. Patient states he is had poor sleep and appetite. ROS: See HPI for pertinent positives and negatives. A total of 10 systems were reviewed and otherwise negative. Past medical history: See below Surgical history: See below Social history: See below Physical Exam: GENERAL: Wearing a mask. NAD, non-toxic. EYE EXAM: Normal conjunctiva. PERRL, no anisocoria and EOM's grossly intact w/o pain. OROPHARYNX: Moist mucus membranes. Edentulous. NECK: Supple, no nuchal rigidity, no adenopathy, non-tender. No signs of meningismus. LUNGS: Clear to auscultation. Normal chest wall mechanics. HEART: NSR, no MRG. ABDOMEN: Abdomen soft, mild upper abdominal discomfort without peritonitis, no lower abdominal pain, well-healed midline incisional scar. Normo-active bowel sounds, no masses, no rebound or guarding. BACK: No CVA TTP. SKIN: No rashes and no bruising. UPPER EXTREMITIES: Upper extremities are grossly normal. LOWER EXTREMITIES: Grossly normal, no edema. NEURO EXAM: A&O x3, cranial nerves II-XII grossly intact, normal speech, moves all 4 extremities on command w/o issue. Differential diagnoses: Mood disorder, infection, hypoglycemia, electrolyte abnormalities, cardiac sources, intracerebral event, toxicologic, trauma, neurologic, as well as other pathologies. Appendicitis, testicular torsion, infections, diverticulitis, UTI, obstruction, mesenteric ischemia, aortic pathology, inflammatory bowel disease, renal colic, PUD, pancreatitis, biliary pathology, hernia, volvulus, constipation, as well as other pathologies. Course: Patient was seen and evaluated the bedside. Full history physical exam was performed. EKG: None Imaging Studies: Radiology results as stated below per my review in the radiologist's interpretation: KUB CLINICAL HISTORY: upright KUB COMPARISON STUDY: CT of the abdomen and pelvis February 12, 2020. FINDINGS: Elevation of the left hemidiaphragm is unchanged. Distention of the stomach, small and large bowel has mildly improved since CT of February 12, 2020. Please note that the pelvis was not imaged on this examination. No free air is identified on this upright projection. IMPRESSION: 1. Interval decrease in small and large bowel dilatation since prior CT. Mild residual small bowel dilatation. 2. No free air. ACT 112: Negative or not required by law. Electronically signed by: Mode Real M.D. 02/13/2020 7:54 PM Dictated: 02/13/201952 Transcribed: 02/13/201952 MDM: Patient was seen due to concern for abdominal pains and depression. The patient did a blood work completed which is unremarkable. KUB shows improvement in the patient's small bowel dilatation. The patient has been having bowel movements and the patient does not have any active vomiting here. Do not believe that the patient has an obstruction at this time. Do believe there are some residual symptoms of his opiate withdrawal given the increase in bowel movements. Patient was deemed medically cleared seen and evaluated by psych rn case manager. Patient is at home medications were ordered and the patient was pending referrals. Patient was signed out to the nighttime physician Dr. Og pending reevaluation and disposition. Past Med/Surg History Medical History Acidosis, lactic Alcohol intoxication Anxiety Arthritis Bilateral lower leg cellulitis Degenerative cervical spinal stenosis Depression Hearing difficulty Hyperlipidemia Left rib fracture Lumbar radicular pain Neuropathy Pneumonia Sepsis Spinal stenosis Spinal stenosis of lumbar region Stomach ulcer Surgical History History of hernia repair History of oral surgery Family History Mother Anxiety Depression Cardiac disorder Hypertension Diabetes Mesothelioma Father Mesothelioma Diabetes Brother Diabetes Other No significant family history Social History Smoking Status: Former smoker Second Hand Exposure: No; Hx Alcohol Use: Yes Alcohol type: hard liquor Hx Substance Use: Yes Last Used Substance: Hours (ago) Last Used Substance Other:: opiod dependence on methadone Preferred Language: Greek Communication Ability: Effective Visual Impairment: Limited Hearing Ability: Normal Reconditioner Required: No Beliefs That Will Affect Care: Alevism Alevism Beliefs: TAOISM marital status: Legally Current Living Situation: Other Current Living Situation Comment: [facility], [place] Feels Safe at Home: Yes Allergies Allergies Allergy/AdvReac Type Severity Reaction Status Date / Time erythromycin base Allergy Intermediate Rash Verified 02/11/20 22:38 Home Meds Home Medications Medication Instructions Recorded Confirmed sennosides-docusate sodium 1 tab PO BID PRN 05/24/19 02/13/20 [Senna-S] docusate sodium 100 mg capsule 100 mg PO BID PRN 01/02/20 02/13/20 oxycodone 10 mg PO BID 02/11/20 02/13/20 Previous Rx's Medication Instructions Recorded naloxone 4 mg/actuation nasal spray 1 sprays INTNAS Q2M #2 ea 02/01/19 acetaminophen [Mapap 650 mg PO Q6H PRN #15 tab 03/03/19 (acetaminophen)] diclofenac sodium [Voltaren] 4 g EXT QID #100 gm 05/27/19 pantoprazole 40 mg tablet,delayed 40 mg PO QAM #30 tab 09/02/19 release buspirone 15 mg tablet 15 mg PO TID #90 tab 11/28/19 atorvastatin 10 mg tablet 10 mg PO DAILY #30 tab 01/09/20 gabapentin 300 mg capsule 300 mg PO TID #90 cap 01/09/20 alprazolam 0.5 mg tablet 0.5 mg PO TID PRN #90 tab 02/03/20 ondansetron 4 mg PO Q6H PRN #12 tab 02/12/20 methadone 10 mg tablet 10 mg PO Q8H PRN #90 tab 02/13/20 methylphenidate HCl 10 mg tablet 10 mg PO TID #84 tab 02/13/20 Results & Data (ED) Vital Signs Vital Signs - 24 hr 02/13/20 18:08 02/13/20 20:07 Temperature 37.1 C Temperature Source Oral Pulse Rate 65 Pulse Rate [Finger] 77 Pulse Rhythm [Finger] Regular Pulse Strength [Finger] Normal Respiratory Rate 17 20 Respiratory Effort / Characteristics Non-Labored Respiratory Depth Normal Respiratory Pattern Regular Blood Pressure 124/83 Blood Pressure [Left Arm] 135/78 Blood Pressure Mean 96 Blood Pressure Mean [Left Arm] 97 Blood Pressure Position [Left Arm] Lying Pulse Oximetry 97 93 Oxygen Delivery Method Room Air Room Air Sepsis Recent Fever Within 48 Hours No Sepsis New/Unexplained Change in Mental Status No Sepsis Action Taken by Nursing No Action Required Home Medications Current Medication List: was personally reviewed by me Laboratory Data Attestation: I reviewed the patient's lab results. Result diagrams: 02/13/20 18:16 02/13/20 18:16 Lab Results 02/13/20 02/13/20 02/13/20 Range/Units 18:16 18:16 18:16 WBC 9.84 (4.8-10.8) K/uL RBC 4.47 L (4.7-6.1) M/uL Hgb 13.8 L (14.0-18.0) g/dL Hct 40.4 L (42-52) % MCV 90.4 (80-100) fL MCH 30.9 (25-34) pg MCHC 34.2 (32-36) g/dL RDW Std Deviation 43.6 (36.4-46.3) fL RDW Coeff of Stephen 13.3 (11.5-14.5) % Plt Count 274 (130-400) K/uL MPV 9.5 (7.4-10.4) fL Immature Gran % (Auto) 0.2 % Neut % (Auto) 75.8 % Lymph % (Auto) 16.8 % [place] % (Auto) 6.3 % Eos % (Auto) 0.7 % Baso % (Auto) 0.2 % Neut # (Auto) 7.46 H (1.4-6.5) K/uL Lymph # (Auto) 1.65 (1.2-3.4) K/uL Conway # (Auto) 0.62 H (0.11-0.59) K/uL Eos # (Auto) 0.07 (0-0.5) K/uL Baso # (Auto) 0.02 (0-0.2) K/uL Immature Gran # (Auto) 0.02 (0.00-0.02) K/uL Sodium 133 L (136-145) mmol/L Potassium 3.6 (3.5-5.1) mmol/L Chloride 98 (98-107) mmol/L Carbon Dioxide 27 (21-32) mmol/L Anion Gap 8.0 (3-11) BUN 12 (7-18) mg/dl Creatinine 0.68 (0.6-1.4) mg/dl Est Cr Clr Drug Dosing 80.6 ml/min Est GFR ( Amer) 116.2 Est GFR (Non-Af Amer) 100.2 BUN/Creatinine Ratio 17.3 (10-20) Glucose 95 (70-99) mg/dl Calcium 8.6 (8.5-10.1) mg/dl Total Bilirubin 0.3 (0.2-1) mg/dl AST 23 (15-37) U/L ALT 20 (12-78) U/L Alkaline Phosphatase 80 (45-117) U/L Total Protein 7.4 (6.4-8.2) gm/dl Albumin 4.0 (3.4-5.0) gm/dl Globulin 3.4 (2.5-4.0) gm/dl Albumin/Globulin Ratio 1.2 (0.9-2) TSH 0.679 (0.300-4.500) uIu/ml Urine Color Urine Appearance (Clear) Urine pH (4.5-7.5) Ur Specific [place] (1.000-1.030) Urine Protein (Negative) Urine Glucose (UA) (Negative) Urine Ketones (Negative) Urine Blood (Negative) Urine Nitrite (Negative) Urine Bilirubin (Negative) Urine Urobilinogen (Negative) Ur Leukocyte Esterase (Negative) Salicylates < 1.7 L (2.8-20) mg/dl Urine Opiates Screen (Neg) Ur Methadone, Qual (Neg) Acetaminophen < 2 L (10-30) ug/ml Urine Barbiturates (Neg) Ur Phencyclidine (PCP) (Neg) U Amphetamin/Meth Scrn (Neg) MDMA (Ecstasy) Screen (Neg) U Benzodiazepines Scrn (Neg) Ur Cocaine Metabolite (Neg) U Marijuana (THC) Screen (Neg) Ethyl Alcohol mg/dL (0-3) mg/dl 02/13/20 02/13/20 02/13/20 Range/Units 18:16 18:30 18:30 WBC (4.8-10.8) K/uL RBC (4.7-6.1) M/uL Hgb (14.0-18.0) g/dL Hct (42-52) % MCV (80-100) fL MCH (25-34) pg MCHC (32-36) g/dL RDW Std Deviation (36.4-46.3) fL RDW Coeff of Stephen (11.5-14.5) % Plt Count (130-400) K/uL MPV (7.4-10.4) fL Immature Gran % (Auto) % Neut % (Auto) % Lymph % (Auto) % [place] % (Auto) % Eos % (Auto) % Baso % (Auto) % Neut # (Auto) (1.4-6.5) K/uL Lymph # (Auto) (1.2-3.4) K/uL [place] # (Auto) (0.11-0.59) K/uL Eos # (Auto) (0-0.5) K/uL Baso # (Auto) (0-0.2) K/uL Immature Gran # (Auto) (0.00-0.02) K/uL Sodium (136-145) mmol/L Potassium (3.5-5.1) mmol/L Chloride (98-107) mmol/L Carbon Dioxide (21-32) mmol/L Anion Gap (3-11) BUN (7-18) mg/dl Creatinine (0.6-1.4) mg/dl Est Cr Clr Drug Dosing ml/min Est GFR ( Amer) Est GFR (Non-Af Amer) BUN/Creatinine Ratio (10-20) Glucose (70-99) mg/dl Calcium (8.5-10.1) mg/dl Total Bilirubin (0.2-1) mg/dl AST (15-37) U/L ALT (12-78) U/L Alkaline Phosphatase (45-117) U/L Total Protein (6.4-8.2) gm/dl Albumin (3.4-5.0) gm/dl Globulin (2.5-4.0) gm/dl Albumin/Globulin Ratio (0.9-2) TSH (0.300-4.500) uIu/ml Urine Color Yellow Urine Appearance Clear (Clear) Urine pH 6.0 (4.5-7.5) Ur Specific [place] 1.015 (1.000-1.030) Urine Protein Negative (Negative) Urine Glucose (UA) Negative (Negative) Urine Ketones Negative (Negative) Urine Blood Negative (Negative) Urine Nitrite Negative (Negative) Urine Bilirubin Negative (Negative) Urine Urobilinogen Negative (Negative) Ur Leukocyte Esterase Negative (Negative) Salicylates (2.8-20) mg/dl Urine Opiates Screen Neg (Neg) Ur Methadone, Qual Neg (Neg) Acetaminophen (10-30) ug/ml Urine Barbiturates Neg (Neg) Ur Phencyclidine (PCP) Neg (Neg) U Amphetamin/Meth Scrn Neg (Neg) MDMA (Ecstasy) Screen Neg (Neg) U Benzodiazepines Scrn Neg (Neg) Ur Cocaine Metabolite Neg (Neg) U Marijuana (THC) Screen Neg (Neg) Ethyl Alcohol mg/dL 112.4 H (0-3) mg/dl Administered Medications Discontinued Medications Acetaminophen (Acetaminophen 325 Mg Tab) 650 mg PO NOW STA Stop: 02/13/20 19:46 Last Admin: 02/13/20 19:50 Dose: 650 mg Documented by: [id number] Clonidine HCl (Clonidine Hcl 0.1 Mg Tab) 0.1 mg PO NOW ONE Stop: 02/13/20 19:04 Last Admin: 02/13/20 19:10 Dose: 0.1 mg Documented by: [id number] Dicyclomine HCl (Dicyclomine Hcl 10 Mg/Ml 2 Ml Amp/Vial) 20 mg IM NOW ONE Stop: 02/13/20 19:02 Last Admin: 02/13/20 19:11 Dose: 20 mg Documented by: [id number] Ondansetron HCl (Ondansetron 4 Mg Od Tab) 4 mg PO NOW STA Stop: 02/13/20 19:02 Last Admin: 02/13/20 19:10 Dose: 4 mg Documented by: [id number] Discharge Plan Visit Data Chief Complaint: Mental Health Evaluation Stated Complaint: ANUS PAIN, MHID ED Provider: Felix Ellis Discharge Problem: Abdominal pain, Depression, Alcohol abuse Forms Stand Alone Forms: [facility], Suicide Prevention Resources Prescriptions Prescriptions: No Action docusate sodium [Colace] 100 mg capsule 100 mg PO BID PRN (Reason: Constipation) RF: 0 Narcan 4 mg/actuation spray,non-aerosol 1 sprays INTNAS Q2M Qty: 2 RF: 5 pantoprazole 40 mg tablet,delayed release (DR/EC) 40 mg PO QAM Qty: 30 RF: 11 gabapentin 300 mg capsule 300 mg PO TID Qty: 90 RF: 5 atorvastatin 10 mg tablet 10 mg PO DAILY Qty: 30 RF: 11 alprazolam 0.5 mg tablet 0.5 mg PO TID PRN (Reason: anxiety) Qty: 90 RF: 0 methadone 10 mg tablet 10 mg PO Q8H PRN (Reason: Pain, Severe) Qty: 90 RF: 0 methylphenidate HCl 10 mg tablet 10 mg PO TID Qty: 84 RF: 0 buspirone 15 mg tablet 15 mg PO TID Qty: 90 RF: 5 oxycodone 10 mg tablet 10 mg PO BID RF: 0 ondansetron 4 mg tablet,disintegrating 4 mg PO Q6H PRN (Reason: nausea and vomiting) Qty: 12 RF: 0 acetaminophen [Mapap (acetaminophen)] 325 mg Tablet 650 mg PO Q6H PRN (Reason: Pain, Moderate) Qty: 15 RF: 0 sennosides-docusate sodium [Senna-S] 8.6-50 mg tablet 1 tab PO BID PRN (Reason: Constipation) RF: 0 diclofenac sodium [Voltaren] 1 % Gel 4 g EXT QID Qty: 100 RF: 0 Discharge Problem: Abdominal pain Qualifiers: Abdominal location: epigastric Qualified Code(s): R10.13 - Epigastric pain Depression Qualifiers: Depression Type: major depressive disorder Major depression recurrence: single episode Active/Remission status: currently active Major depression episode severity: mild Qualified Code(s): F32.0 - Major depressive disorder, single episode, mild
[2020-02-13 18:29] LABS: Basophils # (auto) 0.02 K/uL (0-0.2); Basophils % (auto) 0.2 %; Eosinophils # (auto) 0.07 K/uL (0-0.5); Eosinophils % (auto) 0.7 %; Hematocrit (blood only) 40.4 % (42-52); Hemoglobin 13.8 g/dL (14.0-18.0); Immature Granulocytes # (auto) 0.02 K/uL (0.00-0.02); Immature Granulocytes % (auto) 0.2 %; Lymphocytes # (auto) 1.65 K/uL (1.2-3.4); Lymphocytes % (auto) 16.8 %; Mean Corpuscular Hemoglobin 30.9 pg (25-34); Mean Corpuscular Hgb Conc 34.2 g/dL (32-36); Mean Corpuscular Volume 90.4 fL (80-100); Mean Platelet Volume 9.5 fL (7.4-10.4); Monocytes # (auto) 0.62 K/uL (0.11-0.59); Monocytes % (auto) 6.3 %; Neutrophils # (auto) 7.46 K/uL (1.4-6.5); Neutrophils % (auto) 75.8 %; Platelet Count 274 K/uL (130-400); RDW Coefficient of Variation 13.3 % (11.5-14.5); RDW Standard Deviation 43.6 fL (36.4-46.3); Red Blood Count 4.47 M/uL (4.7-6.1); White Blood Count 9.84 K/uL (4.8-10.8)
[2020-02-13 18:46] LABS: BUN Creatinine Ratio 17.3 (10-20); Calcium 8.6 mg/dl (8.5-10.1); Creatinine Clr Calc Pharmacy 80.6 ml/min; Est GFR (African American) 116.2; Est GFR (Non-African American) 100.2; Potassium 3.6 mmol/L (3.5-5.1)
[2020-02-13 18:50] LABS: Appearance Urine Clear (Clear); Bilirubin Urine Negative (Negative); Blood Urine Negative (Negative); Color Urine Yellow; Glucose Urine UA Negative (Negative); Ketones Urine Negative (Negative); Leukocyte Esterase Urine Negative (Negative); Nitrite Urine Negative (Negative); Protein Urine Negative (Negative); Specific Gravity Urine 1.015 (1.000-1.030); Urobilinogen Urine Negative (Negative)
[2020-02-13 18:56] LABS: Albumin Globulin Ratio 1.2 (0.9-2); Bilirubin,Total 0.3 mg/dl (0.2-1); Globulin 3.4 gm/dl (2.5-4.0); Thyroid Stimulating Hormone 0.679 uIu/ml (0.300-4.500); Total Protein 7.4 gm/dl (6.4-8.2)
[2020-02-13 18:57] LABS: Acetaminophen < 2 ug/ml (10-30); Salicylate < 1.7 mg/dl (2.8-20)
[2020-02-13] MEDS ORDERED: ONDANSETRON 4 MG OD TAB PO STA (19:01)
[2020-02-13] MEDS ORDERED: DICYCLOMINE HCL 10 MG/ML 2 ML AMP/VIAL IM ONE (19:01)
[2020-02-13] MEDS ORDERED: cloNIDine HCL 0.1 MG TAB PO ONE (19:03)
[2020-02-13 19:15] LABS: Amphetamines+Metham, Urine Neg (Neg); Barbiturates, Urine Neg (Neg); Benzodiazepine, Urine Neg (Neg); Cocaine, Urine Neg (Neg); MDMA (Ecstacy), Urine Neg (Neg); Methadone, Urine Neg (Neg); Opiate, Urine Neg (Neg); Phencyclidine, Urine Neg (Neg)
[2020-02-13] MEDS ORDERED: ACETAMINOPHEN 325 MG TAB PO STA (19:45)
--- NOTE | 2020-02-13 19:56 | XRay Report ---
KUB CLINICAL HISTORY: upright KUB COMPARISON STUDY: CT of the abdomen and pelvis February 12, 2020. FINDINGS: Elevation of the left hemidiaphragm is unchanged. Distention of the stomach, small and larg e bowel has mildly improved since CT of February 12, 2020. Please note that the pelvis was not imaged o n this examination. No free air is identified on this upright projection. IMPRESSION: 1. Interval decrease in small and large bowel dilatation since prior CT. Mild residual small bowel di latation. 2. No free air. ACT 112: Negative or not required by law. Electronically signed by: Mode Real M.D. 02/13/2020 7:54 PM
--- NOTE | 2020-02-13 22:38 | Emergency Department Note ---
ED Visit Note ED Physician Sign Out Note: Arrived for evaluation of suicidal ideation and abdominal pain. Self harm thoughts without plan and no history of hallucinations. Recent SBO/Ileus with improvement in KUB today. Medically cleared by Dr Ellis this evening and signed out to me pending placement. He is here on a 201 Voluntary admission. Evaluated patient at 11:20pm on 02/13/20. He is currently on [address] by police pending placement due to having loaded gun and suicidal statements. He denies plan to actually use gun but admits severe depression and thoughts of . He is currently stating he will sign himself in to psychiatric facility. He is shaking, tremulous and very anxious/uncomfortable. While clearly has long history of chronic pain issues, he does exhibit evidence of withdrawal from his multiple narcotics/benzos. He is not appearing to withdraw from alcohol at this time and denies daily etoh use, nor seizures from withdrawal of alcohol. He had his daily medications ordered, but given no Methadone for almost a week will give his other narcotics, but hold on Methadone for this evening. Patient without further issues overnight and signed out to Dr Quiros pending placement. Marvin Og MD : Abdominal pain Qualifiers: Abdominal location: epigastric Qualified Code(s): R10.13 - Epigastric pain Depression Qualifiers: Depression Type: major depressive disorder Major depression recurrence: single episode Active/Remission status: currently active Major depression episode severity: mild Qualified Code(s): F32.0 - Major depressive disorder, single episode, mild
[2020-02-13] MEDS ORDERED: ACETAMINOPHEN 325 MG TAB PO PRN (23:20)
[2020-02-13] MEDS: ALPRAZolam 0.5 MG TABLET PO PRN (23:30)
[2020-02-13] MEDS: OXYCODONE HCL IR 5 MG TAB (IMMEDIATE RELEASE) PO SCH (23:30)
[2020-02-13] MEDS: BusPIRone 15 MG TAB PO SCH (23:38)
[2020-02-13] MEDS: GABAPENTIN 300 MG CAP PO SCH (23:38)
[2020-02-14] MEDS: ALPRAZolam 0.5 MG TABLET PO PRN ×2 (07:39→13:06)
[2020-02-14] MEDS: OXYCODONE HCL IR 5 MG TAB (IMMEDIATE RELEASE) PO SCH (08:39)
[2020-02-14] MEDS: GABAPENTIN 300 MG CAP PO SCH ×2 (08:40→14:46)
[2020-02-14] MEDS: BusPIRone 15 MG TAB PO SCH ×3 (08:41→20:09)
[2020-02-14] MEDS ORDERED: METHYLPHENIDATE HCL 10 MG TABLET PO SCH (09:00)
[2020-02-14] MEDS ORDERED: PANTOprazole 40 MG TAB PO SCH (09:00)
[2020-02-14] MEDS ORDERED: ATORVASTATIN 10 MG TAB PO SCH (09:00)
--- NOTE | 2020-02-14 12:44 | History & Physical ---
Date of Service February 14, 2020 Impression / Recommendations Impression 64-year-old male admitted voluntarily for inpatient psychiatric treatment after presenting to the ED via police after verbalizing suicidal ideation to his sister during a phone call (sister resides in [place]). Sister called police as she was concerned about the patient's remarks. It was reported that patient admitted to having a loaded gun in his home, though states he never mentioned using the gun to harm himself. It seems that a great portion of patient's low mood and hopelessness is related to chronic pain issues. Also concerning, however, is the serious risks associated with patient's current pain management regimen and evidence of misuse/abuse. Pt admits to running out of his medications early (some 90-day prescription bottles empty ~2 weeks after filling them). It will be helpful to gather additional information on this topic, but primary goal will be coordinating his medication regimen with his PCP. Pt has had a long-standing regimen of methadone, oxycodone, alprazolam, methylphenidate, and gabapentin - seemingly unwilling in the past to make adjustments to his medication regimen. We are holding all controlled substances until additional coordination can occur with his PCP - patient admits having been out of most of these medications for at least 5-7 days prior to his admission. Pt reports adverse effects related to previous trials of SSRIs/SNRIs and we will therefore trial mirtazapine to target mood and anxiety while hopefully seeing some benefit for pain, improved sleep, and appetite stimulation. Will continue buspirone for anxiety. Pt admits to significant hopelessness and frustration related to chronic pain. Inpatient psychiatric admission is necessary as patient remains at acute risk of harm to self. Dr. Chantal Burton was directly involved in review and discussion of the patient's case and participated in medical decision making regarding treatment recommendations. (1) Suicidal ideation: 02/13 - Admitted to a locked inpatient behavioral health unit, on q15 minute safety checks - Encourage medication initiation/adjustments as indicated - Encourage participation in group and recreational therapies - Gather collateral information from outpatient providers - Suggest family meeting to involve outpatient supports in safety planning - Arrange appropriate aftercare (2) Depression: 02/13 - Suggested initiation of mirtazapine 7.5mg tonight with titration as tolerated to target depression and anxiety, as this may provided additional benefit for some pain relief as well as appetite stimulation and sedative effects to assist with sleep. Pt reports difficulty tolerating primary serotonergic agents in the past, so hopefully with find benefit from mirtazapine as an alternative. - Admittedly, patient's depressed mood is likely related to his chronic pain history. Unfortunately patient's previous medication regimen is not ideal for numerous reasons and we will attempt to make adjustments to pursue an effective, but safer option for long-term management of chronic pain concerns. See below. - Encourage participation in group and recreational programming - Assist with development of healthy and effective coping strategies. - Encourage family meeting - possibly with sister in [place], as patient does not have local support Active/Remission status: currently active Depression Type: major depressive disorder Major depression episode severity: mild Major depression recurrence: single episode Qualified Code(s): F32.0 - Major depressive disorder, single episode, mild (3) Anxiety: 02/13 - Initiating mirtazapine as described above. Continue buspirone TID. - Assist with development of healthy and effective coping strategies (4) Chronic pain: 02/13 - Given patient has been off numerous of his controlled substances for 5-7 days due to running out of medications early, suggest continuing to hold methadone, oxycodone, gabapentin, alprazolam and methylphenidate until we are able to coordinate with his PCP. It appears from outpatient progress notes that the patient was on this medication regimen prior to starting treatment with Dr. Morelos, having presented a note from his PCP in [place] warning that discontinuation of these medications would undoubtedly lead to withdrawal. - While there is legitimate evidence of conditions leading to patient's pain, he has been on a complicated and concerning medication regimen for several years which is even more concerning as his age advances. Until we are able to coordinate patient patient's PCP, will encourage supportive treatment - acetaminophen, ibuprofen, diclofenac gel, warm compresses, stretching, and other strategies. - Pt is admittedly unhappy about current recommendations, numerous explanations provider to the patient regarding serious risks associated with his current regimen as well as concern for misuse/abuse of his medications. Chronic pain type: chronic pain syndrome Qualified Code(s): G89.4 - Chronic pain syndrome (5) Opioid dependence: 02/13 - Monitor for signs and symptoms of withdrawal. Pt admits to utilization of alcohol when he ran out of his pain medications, but states alcohol was 5 hard ciders over the course of one day. - Will need to coordinate treatment plan with patient's PCP to ensure he is able to be continued on an appropriate medication regimen when discharged. Message left with staff, awaiting return phone call. Risk Factors Assessment Male: Yes : Yes Do You Have Access To A Gun?: Yes Health Problems: Yes Substance Use Disorders: Yes Hopelessness: Yes Protective Factors Assessment Yarsanism Beliefs: Yes : No (technically , but has been from for years, no contact) Responsible for Young Children: No Employed: No Stable Relationships: No Supportive Family: No Psychiatric History Identifying Data RK HUNT is a 64-year-old M who currently lives in [place] in an apartment alone. Pt has a history of chronic back pain, which is reportedly contributing to worsening depression. He was admitted on 02/14/20 10:24 on a 201 voluntary commitment for making suicidal statements to his sister over the phone. Pt was brought to the ED on a 302 warrant by police, but was ultimately willing for treatment. Chief Complaint "I have not a friend. Except maybe one person who thought I was worthy to be a friend." History of Present Illness Rk Hunt II is a 64-year-old male admitted voluntarily for inpatient psychiatric treatment on 02/14/2020 after presenting to the ED on a 302 warrant by police. Pt has reportedly struggled with depression related to chronic pain. He had been speaking with his sister via phone, and reportedly verbalized concerning suicidal statements. The sister called police out of concern. Pt was ultimately willing for treatment, even after being informed that he is not likely to continue to receive his combination of numerous controlled substances. Pt was cooperative with psychiatric assessment. He begins sharing with this guanakito bellamy that "20 years ago I had a resection on my colon. It's been working pretty good, but I still have courses of constipation and diarrhea." He then tells this provider of how he came to be in this area, stating he now has "not a friend, except maybe one person who thought I was worthy to be a friend." Pt states that he had been living in [place] caring for his parents, until their . It was then suggested that the patient move to [place] to be closer to his son and grandchildren. Pt's son resides in [place], [place] but offered for the patient to stay in his cabin in [place]. Pt claims that the cabin was not in good condition, that there was no heat in the winter time and that there were mice, insects, and snakes in the structure. Pt states the Office of Aging became involved and he was moved to an apartment in [facility] in [place]. Pt claims "my son has not visited me since he moved me into that cabin." Pt states "I'll sometimes spend a week or two in my apartment not talking to anyone. He reports he gets meals on wheels, but is unable to eat most of the food due to his poor dentition. Pt states he has a brother and sister who still reside in [place] who are supportive. Pt states he had been talking to his sister via phone prior to his admission, and had shared that he was rather hopeless and wished to as a way to escape his chronic pain. Pt had stated "I told her I was losing my will to live and that I had nothing to look forward to. I wished God would take me away." Pt admits that he does have access to a gun, but denies verbalizing thoughts to use it to harm himself. He states when police arrived at his home following the phone call with his sister, he was asked about the gun but had "forgotten where I even put it, I've never even fired it." Pt believes that police have since confiscated the gun. He admits to chronic pain, poor sleep, decreased appetite, low mood, limited energy, helplessness, and hopelessness. Pt admits to continued wishes. Current recommendations to hold controlled substances until patient's medication regimen can be reviewed with his PCP was discussed. Pt verbalized "but I'm in pain now. I need something now that will take it away." This provider encouraged utilization of mirtazapine, as patient reports SSRIs/SNRIs have contributed to increased anxiety and "feeling like I'm in space" in the past. Pt reports "I'm willing to try anything that will help, but I want it to work now." Pt is unable presently to explain how he ran out of his pain medications too quickly, but does not perceive his medication usage to be abuse. He was again informed that his medication regimen would be reviewed with his PCP, and this provider offered numerous supportive treatment that could be utilized in the interim. Pt denied other questions at this time. Past Psychiatric History Current Psychiatric Diagnosis: Depression, Anxiety Outpatient Services: PCP manages medications presently Do You Have Access To A Gun?: Yes Describe Attempts in the Past: Denies past attempts. Past Medication Trials: Per patient's reports - antidepressant medications have been trialed to treat chronic pain: 1. Cymbalta 2. Lexapro 3. Prozac Patient believes he has tried "6 or 7 different ones, they all give me panic attacks and make me feel like I'm in outer space" Allergies Allergy/AdvReac Type Severity Reaction Status Date / Time erythromycin base Allergy Intermediate Rash Verified 02/11/20 22:38 Home Medications Home Medications Medication Instructions Recorded Confirmed Type naloxone 4 mg/actuation nasal spray 1 sprays INTNAS Q2M #2 ea 02/01/19 02/13/20 Rx acetaminophen [Mapap 650 mg PO Q6H PRN #15 tab 03/03/19 02/13/20 Rx (acetaminophen)] sennosides-docusate sodium 1 tab PO BID PRN 05/24/19 02/13/20 History [Senna-S] diclofenac sodium [Voltaren] 4 g EXT QID #100 gm 05/27/19 02/13/20 Rx pantoprazole 40 mg tablet,delayed 40 mg PO QAM #30 tab 09/02/19 02/13/20 Rx release buspirone 15 mg tablet 15 mg PO TID #90 tab 11/28/19 02/13/20 Rx docusate sodium 100 mg capsule 100 mg PO BID PRN 01/02/20 02/13/20 History atorvastatin 10 mg tablet 10 mg PO DAILY #30 tab 01/09/20 02/13/20 Rx gabapentin 300 mg capsule 300 mg PO TID #90 cap 01/09/20 02/13/20 Rx alprazolam 0.5 mg tablet 0.5 mg PO TID PRN #90 tab 02/03/20 02/13/20 Rx oxycodone 10 mg PO BID 02/11/20 02/13/20 History ondansetron 4 mg PO Q6H PRN #12 tab 02/12/20 02/13/20 Rx methadone 10 mg tablet 10 mg PO Q8H PRN #90 tab 02/13/20 02/13/20 Rx methylphenidate HCl 10 mg tablet 10 mg PO TID #84 tab 02/13/20 02/13/20 Rx Family History Family History of: Suicide Attempts Family Mental Health History Comment: Nephew Alcohol History Hx of Alcohol Use Over the Past 12 Months: Yes (6 ciders today.) Pt denies regular alcohol use, though admits to consuming 5 hard ciders prior to admission in attempts to treat pain after running out of pain medications. Smoking Use Smoking Status: Former smoker Substance History Hx of Prescription Med Misuse Over the Past 12 Months: Yes (Overusing Methadone and Oxy. Last 7 days ago.) Hx of Over the Counter Med Misuse Over the Past 12 Months: No Hx of Inhalent Misuse Over the Past 12 Months: No Hx of Organic Substance Use Over the Past 12 Months: No Hx of Illegal Substances/Street Drug Use Over Past 12 Months: No Problems as a Result of Past Substance Use: None Identified Personal History Living Arrangements: Apartment ([facility]) Highest Grade Completed: Vocational Training Employment Status: Retired Marital Status: (technically still , but has no contact with or knowledge of where-abouts) Beliefs That Will Affect Care: Yarsanism (Jainism ) Patient History Medical History Acidosis, lactic Alcohol intoxication Anxiety Arthritis Bilateral lower leg cellulitis Degenerative cervical spinal stenosis Depression Hearing difficulty Hyperlipidemia Left rib fracture Lumbar radicular pain Neuropathy Pneumonia Sepsis Spinal stenosis Spinal stenosis of lumbar region Stomach ulcer Surgical History History of hernia repair History of oral surgery Family History Mother Anxiety Depression Cardiac disorder Hypertension Diabetes Mesothelioma Father Mesothelioma Diabetes Brother Diabetes Other No significant family history Social History Smoking Status: Former smoker Second Hand Exposure: No; Hx Alcohol Use: Yes Alcohol type: hard liquor Hx Substance Use: Yes Last Used Substance: Hours (ago) Last Used Substance Other:: opiod dependence on methadone Preferred Language: Lao Communication Ability: Effective Visual Impairment: Limited Hearing Ability: Normal Towel Sorter Required: No Beliefs That Will Affect Care: Yarsanism Yarsanism Beliefs: [employer] marital status: Legally Current Living Situation: Other Current Living Situation Comment: [facility] Feels Safe at Home: Yes Review of Systems Review of Systems: Constitutional: denied HEENT: reports long-term hearing loss Cardiovascular: denied Respiratory: denied Gastrointestinal: reports intermittent abdominal pain Neurological: denied Musculoskeletal: reports chronic back pain, pain of right leg and intermittent sensory changes to all four extremities Psychiatric: denies symptoms other than stated above Total of at least 10 systems reviewed, pertinent positives as above and in HPI. Physical Exam Psychiatric: Orientation: alert, oriented x 3 and + guarded (superficially cooperative) Apperance: appropriately dressed, + disheveled and appeared stated age Underweight-appearing male, seated on chair. Pt appears anxious, but in no acute distress. Pt is appropriately dressed for circumstances, still wearing paper scrubs. He level of hygiene and grooming is less than idea, and short white hair and mcnair appear disheveled. Eye Contact: good eye contact Motor Behavior: no abnormal motor movements (observed while sitting down in chair) Speech: normal rate/rhythm/volume of speech (rambling at times) Affect: + depressed affect, + anxious affect and mood congruent with affect Mood: + depressed mood and + anxious mood Thought Process: goal directed thought process and + concrete thought process Thought Content: reality based without delusions, + hopelessness, + worthlessness and + loneliness Suicidal Thoughts: denies suicidal intent; + reports suicidal thoughts Homicidal Thoughts: denies homicidal thoughts Hallucinations: no auditory hallucinations and no visual hallucinations Cognition: attention grossly intact and language grossly intact Estimated Intelligence: consistent with education level Insight: + impaired insight Judgement: + impaired judgement Vital Signs (Past 24 Hours): Last Vital Signs Temp 37.1 C 02/13/20 18:08 Pulse 95 H 02/14/20 07:17 Resp 20 02/14/20 07:17 BP 104/55 L 02/14/20 07:17 Pulse Ox 93 02/14/20 07:17 Exam Statement: A physical exam was performed in the ER prior to admission to the unit by Dr. Felix Ellis MD. I accept that physical as correct/medical clearance for the inpatient physical exam. Results & Data ([facility]) Laboratory Results Laboratory Results - last 24 hr 02/13/20 02/13/20 02/13/20 18:16 18:16 18:16 WBC 9.84 RBC 4.47 L Hgb 13.8 L Hct 40.4 L MCV 90.4 MCH 30.9 MCHC 34.2 RDW Std Deviation 43.6 RDW Coeff of Stephen 13.3 Plt Count 274 MPV 9.5 Immature Gran % (Auto) 0.2 Neut % (Auto) 75.8 Lymph % (Auto) 16.8 [place] % (Auto) 6.3 Eos % (Auto) 0.7 Baso % (Auto) 0.2 Neut # (Auto) 7.46 H Lymph # (Auto) 1.65 [place] # (Auto) 0.62 H Eos # (Auto) 0.07 Baso # (Auto) 0.02 Immature Gran # (Auto) 0.02 Sodium 133 L Potassium 3.6 Chloride 98 Carbon Dioxide 27 Anion Gap 8.0 BUN 12 Creatinine 0.68 Est Cr Clr Drug Dosing 80.6 Est GFR ( Amer) 116.2 Est GFR (Non-Af Amer) 100.2 BUN/Creatinine Ratio 17.3 Glucose 95 Calcium 8.6 Total Bilirubin 0.3 AST 23 ALT 20 Alkaline Phosphatase 80 Total Protein 7.4 Albumin 4.0 Globulin 3.4 Albumin/Globulin Ratio 1.2 TSH 0.679 Urine Color Urine Appearance Urine pH Ur Specific [place] Urine Protein Urine Glucose (UA) Urine Ketones Urine Blood Urine Nitrite Urine Bilirubin Urine Urobilinogen Ur Leukocyte Esterase Salicylates < 1.7 L Urine Opiates Screen Ur Methadone, Qual Acetaminophen < 2 L Urine Barbiturates Ur Phencyclidine (PCP) U Amphetamin/Meth Scrn MDMA (Ecstasy) Screen U Benzodiazepines Scrn Ur Cocaine Metabolite U Marijuana (THC) Screen Ethyl Alcohol mg/dL 02/13/20 02/13/20 02/13/20 18:16 18:30 18:30 WBC RBC Hgb Hct MCV MCH MCHC RDW Std Deviation RDW Coeff of Stephen Plt Count MPV Immature Gran % (Auto) Neut % (Auto) Lymph % (Auto) [place] % (Auto) Eos % (Auto) Baso % (Auto) Neut # (Auto) Lymph # (Auto) [place] # (Auto) Eos # (Auto) Baso # (Auto) Immature Gran # (Auto) Sodium Potassium Chloride Carbon Dioxide Anion Gap BUN Creatinine Est Cr Clr Drug Dosing Est GFR ( Amer) Est GFR (Non-Af Amer) BUN/Creatinine Ratio Glucose Calcium Total Bilirubin AST ALT Alkaline Phosphatase Total Protein Albumin Globulin Albumin/Globulin Ratio TSH Urine Color Yellow Urine Appearance Clear Urine pH 6.0 Ur Specific [place] 1.015 Urine Protein Negative Urine Glucose (UA) Negative Urine Ketones Negative Urine Blood Negative Urine Nitrite Negative Urine Bilirubin Negative Urine Urobilinogen Negative Ur Leukocyte Esterase Negative Salicylates Urine Opiates Screen Neg Ur Methadone, Qual Neg Acetaminophen Urine Barbiturates Neg Ur Phencyclidine (PCP) Neg U Amphetamin/Meth Scrn Neg MDMA (Ecstasy) Screen Neg U Benzodiazepines Scrn Neg Ur Cocaine Metabolite Neg U Marijuana (THC) Screen Neg Ethyl Alcohol mg/dL 112.4 H Current Inpatient Medications Current Inpatient Medications: Current Inpatient Medications Acetaminophen (Acetaminophen 325 Mg Tab) 650 mg PO Q6H PRN PRN Reason: Pain, Moderate Stop: 03/14/20 23:19 Last Admin: 02/14/20 04:38 Dose: 650 mg Documented by: Alprazolam (Alprazolam 0.5 Mg Tablet) 0.5 mg PO TID PRN PRN Reason: anxiety Stop: 03/14/20 23:19 Last Admin: 02/14/20 07:39 Dose: 0.5 mg Documented by: Atorvastatin Calcium (Atorvastatin 10 Mg Tab) 10 mg PO DAILY [facility] Stop: 03/15/20 08:59 Last Admin: 02/14/20 08:41 Dose: 10 mg Documented by: Buspirone HCl (Buspirone 15 Mg Tab) 15 mg PO TID [facility] Stop: 03/14/20 23:24 Last Admin: 02/14/20 08:41 Dose: 15 mg Documented by: Gabapentin (Gabapentin 300 Mg Cap) 300 mg PO TID [facility] Stop: 03/14/20 23:24 Last Admin: 02/14/20 08:40 Dose: 300 mg Documented by: Methylphenidate HCl (Methylphenidate Hcl 10 Mg Tablet) 10 mg PO TID [facility] Stop: 02/28/20 08:59 Last Admin: 02/14/20 08:41 Dose: 10 mg Documented by: Oxycodone HCl (Oxycodone Hcl Ir 5 Mg Tab (Immediate Release)) 10 mg PO BID [facility] Stop: 02/27/20 23:24 Last Admin: 02/14/20 08:39 Dose: 10 mg Documented by: Pantoprazole Sodium (Pantoprazole 40 Mg Tab) 40 mg PO QAM [facility] Stop: 03/15/20 08:59 Last Admin: 02/14/20 08:39 Dose: 40 mg Documented by:
--- NOTE | 2020-02-14 14:06 | Emergency Department Note ---
ED Visit Note The patient was signed out to me awaiting psychiatric admission. He was admitted to 3 S. . : Abdominal pain Qualifiers: Abdominal location: epigastric Qualified Code(s): R10.13 - Epigastric pain Depression Qualifiers: Depression Type: major depressive disorder Major depression recurrence: single episode Active/Remission status: currently active Major depression episode severity: mild Qualified Code(s): F32.0 - Major depressive disorder, single episode, mild
[2020-02-14] MEDS ORDERED: DOCUSATE SODIUM 100 MG CAP PO PRN (15:18)
[2020-02-14] MEDS ORDERED: IBUPROFEN 200 MG TAB PO PRN (15:19)
[2020-02-14] MEDS: DICLOFENAC SOD 1% GEL 100 GM TUBE EXT SCH ×2 (17:57→20:10)
[2020-02-14] MEDS: ACETAMINOPHEN 325 MG TAB PO PRN (19:29)
[2020-02-14] MEDS ORDERED: MIRTAZAPINE TAB 15 MG TAB PO SCH (22:00)
[2020-02-15] MEDS: ACETAMINOPHEN 325 MG TAB PO PRN ×2 (01:30→22:29)
[2020-02-15] MEDS: ONDANSETRON 4 MG OD TAB PO PRN (05:51)
[2020-02-15] MEDS: DICLOFENAC SOD 1% GEL 100 GM TUBE EXT SCH ×4 (07:52→20:39)
[2020-02-15] MEDS: BusPIRone 15 MG TAB PO SCH ×3 (07:52→20:33)
[2020-02-15] MEDS: PANTOprazole 40 MG TAB PO SCH (07:52)
[2020-02-15] MEDS: ATORVASTATIN 10 MG TAB PO SCH (07:52)
--- NOTE | 2020-02-15 08:15 | Psychiatric Progress Note ---
Date of Service February 15, 2020 Impression / Recommendations Impression 64-year-old male admitted voluntarily for inpatient psychiatric treatment after presenting to the ED via police after verbalizing thoughts to shoot himself to his sister during a phone call (sister resides in [place]). Sister called police as she was concerned about the patient's remarks, and they found him at home, intoxicated, and he reported having a loaded gun in his home, but could not find it. Police located at and secured it. It seems that a great portion of patient's low mood and hopelessness is related to chronic pain issues. Also concerning, however, is the serious risks associated with patient's current pain management regimen and evidence of misuse/abuse. Pt admits to running out of his medications early (a 90-day prescription of gabapentin was found empty ~2 weeks after filling it, and also reports running out of methadone and oxycodone early).as he had been off of controlled substances for 5-7 days on presentation, they were discontinued after discussion with his PCP. The patient reports adverse effects with previous trials of SSRIs/SNRIs, so we started a trial of mirtazapine to target mood and anxiety while hopefully seeing some benefit for pain, improved sleep, and appetite stimulation. Will continue buspirone for anxiety. Pt admits to significant hopelessness and frustration related to chronic pain, and would benefit from outpatient mental health treatment and increased supports. Inpatient psychiatric admission is necessary as patient remains at acute risk of harm to self. (1) Suicidal ideation: 02/13 - Admitted to a locked inpatient behavioral health unit, on q15 minute safety checks - Encourage medication initiation/adjustments as indicated - Encourage participation in group and recreational therapies - Gather collateral information from outpatient providers - Suggest family meeting to involve outpatient supports in safety planning - Arrange appropriate aftercare 02/14 -Recommend family meeting with sister and/or son, who patient states he called and spoke to today. Although he would like to return to [place], he does not have the finances to do so now. -Referring for increased supports in the community including a blended manager of case management and skills psych rehab. -Encourage patient to attend and participate in groups, and work on discharge safety plan. -Recommend gun be removed - unclear if police confiscated it or if it is still in his home? (2) Depression: 02/13 - Suggested initiation of mirtazapine 7.5mg tonight with titration as tolerated to target depression and anxiety, as this may provided additional benefit for some pain relief as well as appetite stimulation and sedative effects to assist with sleep. Pt reports difficulty tolerating primary serotonergic agents in the past, so hopefully with find benefit from mirtazapine as an alternative. - Admittedly, patient's depressed mood is likely related to his chronic pain history. Unfortunately patient's previous medication regimen is not ideal for numerous reasons and we will attempt to make adjustments to pursue an effective, but safer option for long-term management of chronic pain concerns. See below. - Encourage participation in group and recreational programming - Assist with development of healthy and effective coping strategies. - Encourage family meeting - possibly with sister in [place], as patient does not have local support 02/14 -Increase mirtazapine to 15 mg at bedtime. -Refer for outpatient mental health treatment ([facility]). (3) Anxiety: 02/13 - Initiating mirtazapine as described above. Continue buspirone TID. - Assist with development of healthy and effective coping strategies 02/14 -Encourage patient to be compliant with buspirone in order to see full effect. He reports not taking it at home as he has not felt it was effective, but it is unclear if poor adherence is contributing to lack of effect. -Strongly encourage patient to participate in groups and work on behavioral techniques for managing anxiety. He has longstanding and persistent anxiety related to his pain, and have advised him of our recommendations after discussion with his PCP that benzodiazepines be avoided given drug drug interactions, significant risk of side effects given his age, recent history of multiple falls and hospitalizations for the same, and ongoing alcohol use. He is unable to clearly state when he last took alprazolam, although 2 drug screens in the ER in the past week were negative for benzodiazepines. To be safe, and to prevent withdrawal and also assist with treatment of acute anxiety, I will place him on the gabapentin taper and AWSS protocol for benzodiazepine and alcohol withdrawal. (4) Chronic pain: 02/13 - Given patient has been off numerous of his controlled substances for 5-7 days due to running out of medications early, suggest continuing to hold methadone, oxycodone, gabapentin, alprazolam and methylphenidate until we are able to coordinate with his PCP. It appears from outpatient progress notes that the patient was on this medication regimen prior to starting treatment with Dr. Morelos, having presented a note from his PCP in [place] warning that discontinuation of these medications would undoubtedly lead to withdrawal. - While there is legitimate evidence of conditions leading to patient's pain, he has been on a complicated and concerning medication regimen for several years which is even more concerning as his age advances. Until we are able to coordinate patient patient's PCP, will encourage supportive treatment - acetaminophen, ibuprofen, diclofenac gel, warm compresses, stretching, and other strategies. - Pt is admittedly unhappy about current recommendations, numerous explanations provider to the patient regarding serious risks associated with his current regimen as well as concern for misuse/abuse of his medications. 02/14 -Reviewed with his PCP, patient has been on methadone, oxycodone, and methylphenidate for years for chronic pain, but at this time the risks of this medication regimen appear to outweigh the benefits. As he had been off the opiates for almost a week prior to presentation, they were held on admission. No symptoms of opiate withdrawal endorsed today, but will continue to monitor. We will start gabapentin taper as above, and could consider continuing that medication as an outpatient, but I am concerned about his abuse of it as police report that he had completed a 90-day prescription in 2 weeks. The patient is a poor historian with respect to his medication adherence. He may benefit from mobile med management. (5) Opioid dependence: 02/13 - Monitor for signs and symptoms of withdrawal. Pt admits to utilization of alcohol when he ran out of his pain medications, but states alcohol was 5 hard ciders over the course of one day. - Will need to coordinate treatment plan with patient's PCP to ensure he is able to be continued on an appropriate medication regimen when discharged. Message left with staff, awaiting return phone call. 02/14 -Reviewed hospital records and PDMP: Patient had been out of oxycodone and methadone for 5 days when he presented to the hospital, and denies current sym ptoms of opiate withdrawal. Continue to monitor and can use clonidine if needed as well as other supportive treatment. Per PDMP, he is feeling methadone early each month, and just filled a prescription the day prior to hospitalization on 02/13/2020. He also filled methylphenidate prescription on that day, and filled alprazolam #90 tabs on 02/03/2020, and oxycodone #60 tabs on 01/26/2020. (6) Alcohol abuse: 02/14 -patient giving inconsistent reports here about his alcohol use, initially stating he has not drank "in years," but reviewed multiple presenta tions here in the past year with alcohol intoxication. (7) Protein malnutrition: 02/14 -dietary met with him today due to low BMI and difficulty eating (edentulous). Continue easy to chew diet and monitor p.o. intake. Risk Factors Assessment Male: Yes : Yes Do You Have Access To A Gun?: Yes Health Problems: Yes Substance Use Disorders: Yes Hopelessness: Yes Protective Factors Assessment Nondenominational Beliefs: Yes : No (technically , but has been from for years, no contact) Responsible for Young Children: No Employed: No Stable Relationships: No Supportive Family: No Interval History Identifying Information RK HUNT is a 64-year-old M who currently lives in [place] in an apartment alone, has a history of chronic back pain, depression, and anxiety, and was admitted on 02/14/20 10:24 on a 201 voluntary commitment after making suicidal statements to his sister over the phone. Pt was brought to the ED on a 302 warrant by police, but signed in voluntarily for treatment. Chief Complaint "Are you a doctor? I've been waiting for you for so long". Review of Systems Sleep Information Total Hours of Sleep: 4 Meal Information Percent Meal Consumed - Lunch: 100 Percent Meal Consumed - Dinner: 100 Subjective Subjective Patient was seen & assessed and interval progress reviewed with treatment team. Staff report he has been anxious, with multiple complaints, requesting multiple controlled substances, and asking to leave. His PCP's office was contacted yesterday and spoke with Dr. Morelos today, who reports patient came to him on the regimen of 2 opiates, Xanax and Ritalin, did not tolerate past attempts to taper off them, and has been very focused on continuing the medications. Reviewed his recent history of overusing narcotic medications and running out early, and multiple hospital presentations with alcohol intoxication (04/2019 , and this admission). He was hospitalized in 10/2019 for multiple falls and weakness, reported drinking alcohol 1-2 times a week, and oxycodone was reduced due to polypharmacy. In 04/2019 he was hospitalized after a fall, was noted to be hypoxemic secondary to opioid and alcohol use, and BAL in the ER was 249. His gabapentin was increased, Voltaren gel added for back pain, and recommendations were reviewed to taper off of narcotics and to stop drinking. He told his PCP that he had overused his oxycodone and run out early, so is using alcohol for pain. He was in the ER 1 day prior to this admission reporting he had run out of methadone and oxycodone early due to taking more than he was prescribed. He is in favor of reducing or stopping the controlled substances here where patient can be monitored for withdrawal, and using nonnarcotic pain treatments. On my assessment, the patient was seen in his room where he has returned to bed midday, boarding that he is "about to have a panic attack." Later states he has been "having panic attacks constantly" since 1 AM. He says the Remeron he got last night was helpful for sleep but that he woke up at 1 AM and was unable to fall back asleep. He is asking for various medications, including additional doses of Remeron and benzodiazepines. He struggled to provide historical information, giving conflicting reports, and states he is "too rattle to talk." He cannot recall which medications he ran out of early, initially stating it was just his oxycodone, but later stating it was a methadone, oxycodone, and Xanax. He initially says he "has not drank in years, then says that he "only drinks when I run out of my meds," then says he drank because "you sent me home without anything," referring to his ER visit the day prior to this admission. He said he takes methylphenidate "for energy," and is very fixated on wanting multiple controlled substances, stating he has been on that medication regimen for years. Shared concerns with him regarding his multiple hospitalizations, falls, alcohol use, and misuse of controlled substances, as well as observation that his medications have not been controlling his pain or anxiety symptoms. Reviewed my conversation with his PCP and that we would work on addressing his symptoms with safer medications. Also encouraged him to be out of bed and fully participating in treatment, working on behavioral techniques for managing his anxiety, and working on plans to increase his supports in the community. He states he has no friends here, and although he would like to return to [place], he does not have the money. He did call his son today, but says his son is "not a very nice person," and told him he "should not of opened my mouth." He reports feeling overwhelmed and constantly anxious, with suicidal thoughts and wish "for the Lord to take me." He denies any intent to harm himself here. He says that his pain triggers his anxiety and panic, but he has not been pain-free since he was 39. He repeatedly engages in bargaining and fleeting for controlled substances, and rationale for discontinuing these was reviewed multiple times. He ultimately agreed to the treatment plan as detailed below, and even got out of bed to attend group therapy. Physical Exam Psychiatric Orientation: alert, oriented to person and oriented to place Thin, cachectic, white male appearing older than his stated age. Dressed in scrub pants and a sweater with azevedo on it. Initially lying on the bed awake, moved to the seated position, and sat on the edge of the bed in no acute distress. Eye Contact: good eye contact Motor Behavior: no abnormal motor movements Hyperverbal, often interrupts Affect: + anxious affect, + constricted affect and mood congruent with affect Mood: + anxious mood Thought Process: + perseveration (on medications) Thought Content: + preoccupation (On his pain and requests for medications), + cognitive distortions, + hopelessness and + loneliness Suicidal Thoughts: + reports suicidal thoughts Homicidal Thoughts: denies homicidal thoughts Hallucinations: no auditory hallucinations Cognition: language grossly intact; + recent memory not intact and + attention not intact Insight: + limited insight Judgement: + limited judgement Vital Signs (Past 24 Hours) Last Vital Signs Temp 36.6 C 02/15/20 06:38 Pulse 103 H 02/15/20 06:39 Resp 18 02/15/20 06:38 BP 120/64 02/15/20 06:39 Pulse Ox 93 02/14/20 07:17 Results & Data ([facility]) Laboratory Results Laboratory Results - last 24 hr 02/14/20 17:24 POC Glucose 112 H Current Inpatient Medications Current Inpatient Medications: Current Inpatient Medications Acetaminophen (Acetaminophen 325 Mg Tab) 650 mg PO Q6H PRN PRN Reason: Pain, Moderate Stop: 03/15/20 15:19 Last Admin: 02/15/20 01:30 Dose: 650 mg Documented by: Atorvastatin Calcium (Atorvastatin 10 Mg Tab) 10 mg PO DAILY [facility] Stop: 03/16/20 08:59 Last Admin: 02/15/20 07:52 Dose: 10 mg Documented by: Buspirone HCl (Buspirone 15 Mg Tab) 15 mg PO TID [facility] Stop: 03/15/20 20:59 Last Admin: 02/15/20 07:52 Dose: 15 mg Documented by: Diclofenac Sodium (Diclofenac Sod 1% Gel 100 Gm Tube) 4 gm EXT QID [facility] Stop: 03/15/20 16:59 Last Admin: 02/15/20 07:52 Dose: 4 gm Documented by: Docusate Sodium (Docusate Sodium 100 Mg Cap) 100 mg PO BID PRN PRN Reason: Constipation Stop: 03/15/20 15:17 Hydroxyzine HCl (Hydroxyzine Hcl 25 Mg Tab) 25 mg PO Q6H PRN PRN Reason: Anxiety Stop: 03/16/20 08:08 Ibuprofen (Ibuprofen 200 Mg Tab) 400 mg PO Q6H PRN PRN Reason: Pain Stop: 03/15/20 15:18 Mirtazapine (Mirtazapine Tab 15 Mg Tab) 7.5 mg PO HS [facility] Stop: 03/15/20 21:59 Last Admin: 02/14/20 20:10 Dose: 7.5 mg Documented by: Ondansetron HCl (Ondansetron 4 Mg Od Tab) 4 mg PO Q6H PRN PRN Reason: nausea and vomiting Stop: 03/15/20 15:19 Last Admin: 02/15/20 05:51 Dose: 4 mg Documented by: Pantoprazole Sodium (Pantoprazole 40 Mg Tab) 40 mg PO QAM [facility] Stop: 03/16/20 08:59 Last Admin: 02/15/20 07:52 Dose: 40 mg Documented by: Mental Health & Subst Abuse Tx Strip Cutter Name of Strip Cutter: [facility] in the past, Post Discharge Appointments Primary Care Physician Name Of Family Doctor: Dr. Morelos (1) Chronic pain Chronic pain type: chronic pain syndrome Qualified Code(s): G89.4 - Chronic pain syndrome (2) Depression Active/Remission status: currently active Depression Type: major depressive disorder Major depression episode severity: mild Major depression recurrence: single episode Qualified Code(s): F32.0 - Major depressive disorder, single episode, mild
[2020-02-15] MEDS ORDERED: GABAPENTIN 1200MG ALCOHOL WITHDRAWAL LOAD PO STA (11:30)
[2020-02-15] MEDS ORDERED: LORazepam 1 MG TAB PO PRN (11:30)
[2020-02-15] MEDS ORDERED: GABAPENTIN 600 MG TAB PO ONE (12:00)
[2020-02-15] MEDS: GABAPENTIN 600 MG TAB PO SCH (17:55)
[2020-02-15] MEDS: MIRTAZAPINE TAB 15 MG TAB PO SCH (20:33)
[2020-02-16] MEDS: GABAPENTIN 600 MG TAB PO SCH ×3 (02:22→15:34)
--- NOTE | 2020-02-16 08:44 | Psychiatric Progress Note ---
Date of Service February 16, 2020 Impression / Recommendations Impression 64-year-old male admitted voluntarily for inpatient psychiatric treatment after presenting to the ED via police after verbalizing thoughts to shoot himself to his sister during a phone call (sister resides in [place]). Sister called police as she was concerned about the patient's remarks, and they found him at home, intoxicated, and he reported having a loaded gun in his home, but could not find it. Police located at and confiscated it, according to patient. Patient sees his depressive and anxiety symptoms as related to pain. Sister reports he has a long history of alcoholism and chronic pain for the last 20 years, but no history of mental health issues until more recently. Due to multiple hospitalizations for falls and ongoing misuse/abuse of prescription opiates, benzodiazepines, stimulants, and gabapentin, and the fact that he had been out of these medications for approximately a week on presentation, they were discontinued after discussion with his PCP. All of his medication bottles were brought in, and all were empty, most of them long before they should have been. A 90-day prescription of gabapentin was found empty ~2 weeks after filling it, and also ran out of methadone, oxycodone, methylphenidate, and alprazolam early. The patient reports adverse effects with previous trials of SSRIs/SNRIs, so we started a trial of mirtazapine to target mood and anxiety while hopefully seeing some benefit for pain, improved sleep, and appetite stimulation. Buspirone was initially continued for anxiety, but he does not think it has been helpful and it may be contributing to chronic dizziness, so we will discontinue it in favor of a propanolol trial. PT and OT consults have been ordered, and we are exploring ways to increase supports (referral for BCM, psychiatric care, skilled psych rehab) and also managing multiple comorbid medical conditions. Inpatient psychiatric admission is necessary as patient remains at acute risk of harm to self. (1) Suicidal ideation: 02/13 - Admitted to a locked inpatient behavioral health unit, on q15 minute safety checks - Encourage medication initiation/adjustments as indicated - Encourage participation in group and recreational therapies - Gather collateral information from outpatient providers - Suggest family meeting to involve outpatient supports in safety planning - Arrange appropriate aftercare 02/14 -Recommend family meeting with sister and/or son, who patient states he called and spoke to today. Although he would like to return to [place], he does not have the finances to do so now. -Referring for increased supports in the community including a blended case management coordinator and skills psych rehab. -Encourage patient to attend and participate in groups, and work on discharge safety plan. -Recommend gun be removed - unclear if police confiscated it or if it is still in his home? 02/15 -Patient states police confiscated his gun. -Ideally patient would have somebody monitoring his medications, keeping them locked and secured and dispensing them to him daily. He claims he has no one who can perform this task. Recommended mobile med management, but he is not eligible due to his insurance. Continue to explore options for support and safety with his medications. Consider an Office of Aging referral. (2) Depression: 02/13 - Suggested initiation of mirtazapine 7.5mg tonight with titration as tolerated to target depression and anxiety, as this may provided additional benefit for some pain relief as well as appetite stimulation and sedative effects to assist with sleep. Pt reports difficulty tolerating primary serotonergic agents in the past, so hopefully with find benefit from mirtazapine as an alternative. - Admittedly, patient's depressed mood is likely related to his chronic pain history. Unfortunately patient's previous medication regimen is not ideal for numerous reasons and we will attempt to make adjustments to pursue an effective, but safer option for long-term management of chronic pain concerns. See below. - Encourage participation in group and recreational programming - Assist with development of healthy and effective coping strategies. - Encourage family meeting - possibly with sister in [place], as patient does not have local support 02/14 -Increase mirtazapine to 15 mg at bedtime. -Refer for outpatient mental health treatment ([facility]). 02/15 -Increase mirtazapine to 30 mg at bedtime. -Shad Blake has been assigned as his blended case management coordinator and will come to meet with the patient today on the unit. (3) Anxiety: 02/13 - Patient meets criteria for generalized anxiety disorder. Current symptoms also complicated by withdrawal from benzodiazepines, alcohol, gabapentin, and opiates. - Initiating mirtazapine as described above. Continue buspirone TID. - Assist with development of healthy and effective coping strategies 02/14 -Encourage patient to be compliant with buspirone in order to see full effect. He reports not taking it at home as he has not felt it was effective, but it is unclear if poor adherence is contributing to lack of effect. -Strongly encourage patient to participate in groups and work on behavioral techniques for managing anxiety. He has longstanding and persistent anxiety related to his pain, and have advised him of our recommendations after discussion with his PCP that benzodiazepines be avoided given drug drug interactions, significant risk of side effects given his age, recent history of multiple falls and hospitalizations for the same, and ongoing alcohol use. He is unable to clearly state when he last took alprazolam, although 2 drug screens in the ER in the past week were negative for benzodiazepines. To be safe, and to prevent withdrawal and also assist with treatment of acute anxiety, I will place him on the gabapentin taper and AWSS protocol for benzodiazepine and alcohol withdrawal. 02/15 -Ongoing psychoeducation provided regarding MAREN and complicating factors including withdrawal from multiple substances. Patient requires frequent reminders of why controlled substances were stopped and redirection to utilize behavioral techniques for managing anxiety. -He has had some mild tachycardia, so I will start propanolol 10 mg twice daily to target anxiety. -He does not feel buspirone has been helpful, so we will discontinue it. (4) Chronic pain: 02/13 - Given patient has been off numerous of his controlled substances for 5-7 days due to running out of medications early, suggest continuing to hold methadone, oxycodone, gabapentin, alprazolam and methylphenidate until we are able to coordinate with his PCP. It appears from outpatient progress notes that the patient was on this medication regimen prior to starting treatment with Dr. Morelos, having presented a note from his PCP in [place] warning that disc ontinuation of these medications would undoubtedly lead to withdrawal. - While there is legitimate evidence of conditions leading to patient's pain, he has been on a complicated and concerning medication regimen for several years which is even more concerning as his age advances. Until we are able to coordinate patient patient's PCP, will encourage supportive treatment - acetaminophen, ibuprofen, diclofenac gel, warm compresses, stretching, and other strategies. - Pt is admittedly unhappy about current recommendations, numerous explanations provider to the patient regarding serious risks associated with his current regimen as well as concern for misuse/abuse of his medications. 02/14 -Reviewed with his PCP, patient has been on methadone, oxycodone, and methylphenidate for years for chronic pain, but at this time the risks of this medication regimen appear to outweigh the benefits. As he had been off the opiates for almost a week prior to presentation, they were held on admission. No symptoms of opiate withdrawal endorsed today, but will continue to monitor. We will start gabapentin taper as above, and could consider continuing that medication as an outpatient, but I am concerned about his abuse of it as police report that he had completed a 90-day prescription in 2 weeks. The patient is a poor historian with respect to his medication adherence. He may benefit from mobile med management. 02/15 -PT and OT consults ordered for today. Patient may benefit from cane or other assistive devices. -Coordinate with pain clinic and ensure timely follow-up after discharge. He was also referred to neurology and for an EMG and these need to be rescheduled as well. (5) Opioid dependence: 02/13 - Monitor for signs and symptoms of withdrawal. Pt admits to utilization of alcohol when he ran out of his pain medications, but states alcohol was 5 hard ciders over the course of one day. - Will need to coordinate treatment plan with patient's PCP to ensure he is able to be continued on an appropriate medication regimen when discharged. Message left with staff, awaiting return phone call. 02/14 -Reviewed hospital records and PDMP: Patient had been out of oxycodone and methadone for 5 days when he presented to the hospital, and denies current symptoms of opiate withdrawal. Continue to monitor and can use clonidine if needed as well as other supportive treatment. Per PDMP, he is feeling methadone early each month, and just filled a prescription the day prior to hospitalization on 02/13/2020. He also filled methylphenidate prescription on that day, and filled alprazolam #90 tabs on 02/03/2020, and oxycodone #60 tabs on 01/26/2020. (6) Alcohol abuse: 02/14 -patient giving inconsistent reports here about his alcohol use, initially stating he has not drank "in years," but reviewed multiple presentations here in the past year with alcohol intoxication. -AWSS protocol started as above to target alcohol, benzodiazepine, and gabapentin withdrawal. 02/15 -patient's sister reports he has longstanding alcoholism. He has given inconsistent and untrue reports regarding his alcohol use here. Continue to provide education and engage him in motivational interviewing. Recommend peers support groups, such as AA, to target both his addiction issues and assist with increased social supports. (7) Protein malnutrition: 02/14 -dietary met with him today due to low BMI and difficulty eating (edentulous). Continue easy to chew diet and monitor p.o. intake. (8) Constipation: 02/15 -Patient reporting constipation, last bowel movement this morning but was hard. Reports previous benefit from docusate/senna, will order here. Encourage high-fiber diet, adequate water intake, and use of prune juice as needed. Risk Factors Assessment Male: Yes : Yes Do You Have Access To A Gun?: Yes Health Problems: Yes Substance Use Disorders: Yes Hopelessness: Yes Protective Factors Assessment Christian Beliefs: Yes : No (technically , but has been from for years, no contact) Responsible for Young Children: No Employed: No Stable Relationships: No Supportive Family: No Interval History Identifying Information RK HUNT is a 64-year-old M who currently lives in [place] in an apartment alone, has a history of chronic back pain, depression, and anxiety, and was admitted on 02/14/20 10:24 on a 201 voluntary commitment after making suicidal statements to his sister over the phone. Pt was brought to the ED on a 302 warrant by police, but signed in voluntarily for treatment. Chief Complaint "Well I'm worried about things a lot". Review of Systems Notes Constipation -last BM this morning, but stool was hard. Gait unsteadiness. Sleep Information Total Hours of Sleep: 6.5 Meal Information Percent Meal Consumed - Breakfast: 100 Percent Meal Consumed - Lunch: 100 Percent Meal Consumed - Dinner: 100 Subjective Subjective Patient was seen & assessed and interval progress reviewed with nursing and social work. Staff report he reports ongoing anxiety, and he has had mild tach ycardia. He reports gait difficulties and is requesting a cane. He received 4 doses of hydroxyzine 25mg yesterday for anxiety. On my assessment, he reports significant worry, listing numerous things that he is concerned about including that his car permit expires on 02/24/2020, and he is not sure if he will be discharged from the hospital by then, but is worried his car could be towed from his apartment building parking lot if he is not. He is also concerned he will not be able to get into his apartment as he did not bring his keys with him, and the office for his apartment building is only open during certain hours. He is worried about his male "piling up," as well as food he has ordered (protein drinks and canned food). He states that he has no friends who could help him address these problems, but is willing to call the landlord with staff assistance, "can you do that for me?" He is worried that his neighbors think badly of him because some of them saw the police escorting him out of the building, and he feels embarrassed. He says he is "just afraid of all these problems, and having to deal with them." He is easily overwhelmed. He reports poor sleep and says he only slept a couple of hours, although staff reported 6.5 hours overnight. He has retreated to bed and was strongly encouraged to stay out of bed today and try to engage fully in treatment. He is focused on m edications, asking for pain medications and anxiety medications, wanting multiple doses of Remeron daily, and essentially repeating the conversation that we had yesterday regarding his medication regimen. He does not feel that buspirone has been helpful for anxiety, and we will discontinue it. He agreed to a trial of propanolol. Physical Exam Psychiatric Orientation: alert and cooperative Apperance: appropriately dressed and appropriately groomed; + did not appear stated age Thin, unwell appearing, older than stated age. Seated on the edge of the bed in mild distress. Eye Contact: + fair eye contact Slightly restless, fidgeting. Gait is slow, unsteady. Anxious speech, frequently interrupts, asked questions but does not wait for the answer before asking another question. Affect: + anxious affect, + constricted affect and mood congruent with affect Mood: + anxious mood Fearful and worried. Thought Process: goal directed thought process Thought Content: + preoccupation (Focus on medications for pain and anxiety, various worries.), + hopelessness, + worthlessness, + loneliness and + guilt Suicidal Thoughts: + reports suicidal thoughts Feels safe in the hospital, but ongoing suicidal thoughts Homicidal Thoughts: denies homicidal thoughts Hallucinations: no auditory hallucinations and no visual hallucinations Cognition: language grossly intact; + recent memory not intact (Asks the same questions that were reviewed in depth yesterday) and + attention not intact (Does not wait for questions to be answered before jumping to the next question) Insight: + impaired insight Judgement: + impaired judgement Vital Signs (Past 24 Hours) Last Vital Signs Temp 36.4 C L 02/16/20 08:05 Pulse 89 02/16/20 08:05 Resp 16 02/16/20 08:05 BP 127/90 02/16/20 08:05 Pulse Ox 93 02/14/20 07:17 Results & Data ([facility]) Current Inpatient Medications Current Inpatient Medications: Current Inpatient Medications Acetaminophen (Acetaminophen 325 Mg Tab) 650 mg PO Q6H PRN PRN Reason: Pain, Moderate Stop: 03/15/20 15:19 Last Admin: 02/15/20 22:29 Dose: 650 mg Documented by: Atorvastatin Calcium (Atorvastatin 10 Mg Tab) 10 mg PO DAILY [facility] Stop: 03/16/20 08:59 Last Admin: 02/15/20 07:52 Dose: 10 mg Documented by: Buspirone HCl (Buspirone 15 Mg Tab) 15 mg PO TID [facility] Stop: 03/15/20 20:59 Last Admin: 02/15/20 20:33 Dose: 15 mg Documented by: Diclofenac Sodium (Diclofenac Sod 1% Gel 100 Gm Tube) 4 gm EXT QID [facility] Stop: 03/15/20 16:59 Last Admin: 02/15/20 20:39 Dose: 4 gm Documented by: Docusate Sodium (Docusate Sodium 100 Mg Cap) 100 mg PO BID PRN PRN Reason: Constipation Stop: 03/15/20 15:17 Gabapentin (Gabapentin 600 Mg Tab) 600 mg PO Q8H [facility] Stop: 02/17/20 00:01 Gabapentin (Gabapentin 600 Mg Tab) 600 mg PO Q12H [facility] Stop: 02/18/20 00:01 Gabapentin (Gabapentin 600 Mg Tab) 600 mg PO Q24H [facility] Stop: 02/19/20 00:01 Hydroxyzine HCl (Hydroxyzine Hcl 25 Mg Tab) 25 mg PO Q6H PRN PRN Reason: Anxiety Stop: 03/16/20 08:14 Last Admin: 02/15/20 22:29 Dose: 25 mg Documented by: Ibuprofen (Ibuprofen 200 Mg Tab) 400 mg PO Q6H PRN PRN Reason: Pain Stop: 03/15/20 15:18 Lorazepam (Lorazepam 1 Mg Tab) 1 mg PO ONE PRN; Protocol PRN Reason: EtoH Withdrawal AWSS 6-10 Mirtazapine (Mirtazapine Tab 15 Mg Tab) 15 mg PO HS [facility] Stop: 03/16/20 21:59 Last Admin: 02/15/20 20:33 Dose: 15 mg Documented by: Ondansetron HCl (Ondansetron 4 Mg Od Tab) 4 mg PO Q6H PRN PRN Reason: nausea and vomiting Stop: 03/15/20 15:19 Last Admin: 02/15/20 05:51 Dose: 4 mg Documented by: Pantoprazole Sodium (Pantoprazole 40 Mg Tab) 40 mg PO QAM [facility] Stop: 03/16/20 08:59 Last Admin: 02/15/20 07:52 Dose: 40 mg Documented by: Mental Health & Subst Abuse Tx Interior Design Program Chair Name of Interior Design Program Chair: [facility] in the past, Post Discharge Appointments Primary Care Physician Name Of Family Doctor: Dr. Morelos (1) Chronic pain Chronic pain type: chronic pain syndrome Qualified Code(s): G89.4 - Chronic pain syndrome (2) Depression Active/Remission status: currently active Depression Type: major depressive disorder Major depression episode severity: mild Major depression recurrence: single episode Qualified Code(s): F32.0 - Major depressive disorder, single episode, mild
[2020-02-16] MEDS: PANTOprazole 40 MG TAB PO SCH (09:34)
[2020-02-16] MEDS: ATORVASTATIN 10 MG TAB PO SCH (09:34)
[2020-02-16] MEDS: DICLOFENAC SOD 1% GEL 100 GM TUBE EXT SCH ×4 (09:34→20:44)
[2020-02-16] MEDS: PROPRANOLOL HCL 10 MG TAB PO SCH ×2 (12:50→20:44)
[2020-02-16] MEDS: DOCUSATE SODIUM/SENNA 50/8.6MG TAB PO SCH (13:49)
[2020-02-16] MEDS: MIRTAZAPINE TAB 15 MG TAB PO SCH (20:46)
[2020-02-16] MEDS: ACETAMINOPHEN 325 MG TAB PO PRN (21:57)
[2020-02-17] MEDS: GABAPENTIN 600 MG TAB PO SCH ×2 (01:11→11:14)
[2020-02-17] MEDS: DICLOFENAC SOD 1% GEL 100 GM TUBE EXT SCH ×3 (07:55→21:00)
[2020-02-17] MEDS: PROPRANOLOL HCL 10 MG TAB PO SCH ×2 (07:58→21:00)
[2020-02-17] MEDS: DOCUSATE SODIUM/SENNA 50/8.6MG TAB PO SCH (07:58)
[2020-02-17] MEDS: PANTOprazole 40 MG TAB PO SCH (07:58)
[2020-02-17] MEDS: ATORVASTATIN 10 MG TAB PO SCH (07:58)
[2020-02-17] MEDS: ACETAMINOPHEN 325 MG TAB PO PRN ×3 (08:37→21:01)
[2020-02-17] MEDS ORDERED: AMITRIPTYLINE HCL 25 MG TAB PO STA (15:39)
--- NOTE | 2020-02-17 15:39 | Psychiatric Progress Note ---
Date of Service February 17, 2020 Impression / Recommendations Impression 64-year-old male admitted voluntarily for inpatient psychiatric treatment after presenting to the ED via police after verbalizing thoughts to shoot himself to his sister during a phone call (sister resides in [place]). Sister called police as she was concerned about the patient's remarks, and they found him at home, intoxicated, and he reported having a loaded gun in his home, but could not find it. Police located at and confiscated it, according to patient. Patient sees his depressive and anxiety symptoms as related to pain. Sister reports he has a long history of alcoholism and chronic pain for the last 20 years, but no history of mental health issues until more recently. Due to multiple hospitalizations for falls and ongoing misuse/abuse of prescription opiates, benzodiazepines, stimulants, and gabapentin, and the fact that he had been out of these medications for approximately a week on presentation, they were discontinued after discussion with his PCP. All of his medication bottles were brought in, and all were empty, most of them long before they should have been. A 90-day prescription of gabapentin was found empty ~2 weeks after filling it, and also ran out of methadone, oxycodone, methylphenidate, and alprazolam early. The patient reports adverse effects with previous trials of SSRIs/SNRIs, so we started a trial of mirtazapine to target mood and anxiety while hopefully seeing some benefit for pain, improved sleep, and appetite stimulation. Buspirone was initially continued for anxiety, but he does not think it has been helpful and it may be contributing to chronic dizziness, so we will discontinue it in favor of a propanolol trial. PT and OT consults have been ordered, and we are exploring ways to increase supports (referral for BCM, psychiatric care, skilled psych rehab) and also managing multiple comorbid medical conditions. The patient has been visited by a casey saw operator who is in the process of setting up community support services for the patient, including case management and other services primarily related to transportation. The patient understands that his best chance of effective pain management rests with the pain management clinic. At the present time, we feel that although the patient says that he is not currently suicidal we find that inpatient psychiatric admission is necessary as patient remains at acute risk of harm to self pending are being able to secure adequate support services for the patient in the community. (1) Suicidal ideation: 02/13 - Admitted to a locked inpatient behavioral health unit, on q15 minute safety checks - Encourage medication initiation/adjustments as indicated - Encourage participation in group and recreational therapies - Gather collateral information from outpatient providers - Suggest family meeting to involve outpatient supports in safety planning - Arrange appropriate aftercare 02/14 -Recommend family meeting with sister and/or son, who patient states he called and spoke to today. Although he would like to return to [place], he does not have the finances to do so now. -Referring for increased supports in the community including a blended casey saw operator and skills psych rehab. -Encourage patient to attend and participate in groups, and work on discharge safety plan. -Recommend gun be removed - unclear if police confiscated it or if it is still in his home? 02/15 -Patient states police confiscated his gun. -Ideally patient would have somebody monitoring his medications, keeping them locked and secured and dispensing them to him daily. He claims he has no one who can perform this task. Recommended mobile med management, but he is not eligible due to his insurance. Continue to explore options for support and safety with his medications. Consider an Office of Aging referral. 02/16 -Patient reports that he continues to be concerned about returning home because he is isolated and has a limited number of supports. This afternoon, we spoke with management of the building which the patient lives, and she told us that the biggest concern about the patient is the fact that he is emotionally needy and seeks attention. The patient talks at some length about his disappointment that his son is not stepping up to help him, and he believes that his son might have encouraged him to relocate from [place], [place] to [facility] because he wanted to rent out his unoccupied cabin, and the patient had agreed to pay rent. Although the patient reports that he is not suicidal, he has made statements such as "I do not see how I can go on living in this much pain," and he acknowledges that he has started using alcohol as a way of managing pain. Also, the patient notes that he has been steadily losing weight because he struggles to secure in transport his meals. Our concern is that without the availability of wraparound community resources, which we are actively pursuing and expect to have in place at the beginning of next week, and serious physical harm may come to the patient. (2) Depression: 02/13 - Suggested initiation of mirtazapine 7.5mg tonight with titration as tolerated to target depression and anxiety, as this may provided additional benefit for some pain relief as well as appetite stimulation and sedative effects to assist with sleep. Pt reports difficulty tolerating primary serotonergic agents in the past, so hopefully with find benefit from mirtazapine as an alternative. - Admittedly, patient's depressed mood is likely related to his chronic pain history. Unfortunately patient's previous medication regimen is not ideal for numerous reasons and we will attempt to make adjustments to pursue an effective, but safer option for long-term management of chronic pain concerns. See below. - Encourage participation in group and recreational programming - Assist with development of healthy and effective coping strategies. - Encourage family meeting - possibly with sister in [place], as patient does not have local support 02/14 -Increase mirtazapine to 15 mg at bedtime. -Refer for outpatient mental health treatment ([facility]). 02/15 -Increase mirtazapine to 30 mg at bedtime. -Shad Blake has been assigned as his blended casey saw operator and will come to meet with the patient today on the unit. 02/15 -Shad Blake met with the patient today and is in the process of applying for various medically necessary surfaces that allow the patient to safely return to the community. -Indications are that mirtazapine 30 mg at bedtime may be assisting the patient in his effort to sleep. (3) Anxiety: 02/13 - Patient meets criteria for generalized anxiety disorder. Current symptoms also complicated by withdrawal from benzodiazepines, alcohol, gabapentin, and opiates. - Initiating mirtazapine as described above. Continue buspirone TID. - Assist with development of healthy and effective coping strategies 02/14 -Encourage patient to be compliant with buspirone in order to see full effect. He reports not taking it at home as he has not felt it was effective, but it is unclear if poor adherence is contributing to lack of effect. -Strongly encourage patient to participate in groups and work on behavioral techniques for managing anxiety. He has longstanding and persistent anxiety related to his pain, and have advised him of our recommendations after discussion with his PCP that benzodiazepines be avoided given drug drug interactions, significant risk of side effects given his age, recent history of multiple falls and hospitalizations for the same, and ongoing alcohol use. He is unable to clearly state when he last took alprazolam, although 2 drug screens in the ER in the past week were negative for benzodiazepines. To be safe, and to prevent withdrawal and also assist with treatment of acute anxiety, I will place him on the gabapentin taper and AWSS protocol for benzodiazepine and alcohol withdrawal. 02/15 -Ongoing psychoeducation provided regarding MAREN and complicating factors including withdrawal from multiple substances. Patient requires frequent reminders of why controlled substances were stopped and redirection to utilize behavioral techniques for managing anxiety. -He has had some mild tachycardia, so I will start propanolol 10 mg twice daily to target anxiety. -He does not feel buspirone has been helpful, so we will discontinue it. 02/16 -Patient attributes his anxiety to chronic pain. The current anxiety may also be a associated with his long-term use of opioid and sedative medications. -The patient reports that he has not yet noticed any favorable effect from propranolol. --On several occasions the patient is come to the nursing station reported that he is having a panic attack. However, he is not demonstrating tachycardia, shortness of breath, or visual evidence of emotional distress. He does respond to reassurance. (4) Chronic pain: 02/13 - Given patient has been off numerous of his controlled substances for 5-7 days due to running out of medications early, suggest continuing to hold methadone, oxycodone, gabapentin, alprazolam and methylphenidate until we are able to coordinate with his PCP. It appears from outpatient progress notes that the patient was on this medication regimen prior to starting treatment with Dr. Morelos, having presented a note from his PCP in [place] warning that discontinuation of these medications would undoubtedly lead to withdrawal. - While there is legitimate evidence of conditions leading to patient's pain, he has been on a complicated and concerning medication regimen for several years which is even more concerning as his age advances. Until we are able to coordinate patient patient's PCP, will encourage supportive treatment - acetaminophen, ibuprofen, diclofenac gel, warm compresses, stretching, and other strategies. - Pt is admittedly unhappy about current recommendations, numerous explanations provider to the patient regarding serious risks associated with his current regimen as well as concern for misuse/abuse of his medications. 02/14 -Reviewed with his PCP, patient has been on methadone, oxycodone, and methylphenidate for years for chronic pain, but at this time the risks of this medication regimen appear to outweigh the benefits. As he had been off the opiates for almost a week prior to presentation, they were held on admission. No symptoms of opiate withdrawal endorsed today, but will continue to monitor. We will start gabapentin taper as above, and could consider continuing that medication as an outpatient, but I am concerned about his abuse of it as police report that he had completed a 90-day prescription in 2 weeks. The patient is a poor historian with respect to his medication adherence. He may benefit from mobile med management. 02/15 -PT and OT consults ordered for today. Patient may benefit from cane or other assistive devices. -Coordinate with pain clinic and ensure timely follow-up after discharge. He was also referred to neurology and for an EMG and these need to be rescheduled as well. 02/16 -Patient remains drug-seeking and has frequently come to the nursing station to request "something, anything" for pain!" He is specifically seeking opioids and lorazepam. However, the patient is also able to clearly and correctly articulate why we are not supplying these medications. -Patient periodically tells peers that he is experiencing withdrawal from his outpatient medications, but the fact is that he had been out of these medications for a number of days prior to admission and there are no current objective symptoms to indicate actual withdrawal. However, the patient does seem to be craving opioids and benzodiazepines. -We will offer the patient a trial of amitriptyline, beginning with the 25 mg test dose and then 10 mg 3 times daily scheduled for pain management. We are aware of the risks associated with amitriptyline in older adults, but in this case we feel that the anticipated benefit outweighs the present risk. (5) Opioid dependence: 02/13 - Monitor for signs and symptoms of withdrawal. Pt admits to utilization of alcohol when he ran out of his pain medications, but states alcohol was 5 hard ciders over the course of one day. - Will need to coordinate treatment plan with patient's PCP to ensure he is able to be continued on an appropriate medication regimen when discharged. Message left with staff, awaiting return phone call. 02/14 -Reviewed hospital records and PDMP: Patient had been out of oxycodone and methadone for 5 days when he presented to the hospital, and denies current symptoms of opiate withdrawal. Continue to monitor and can use clonidine if needed as well as other supportive treatment. Per PDMP, he is feeling methadone early each month, and just filled a prescription the day prior to hospitalization on 02/13/2020. He also filled methylphenidate prescription on that day, and filled alprazolam #90 tabs on 02/03/2020, and oxycodone #60 tabs on 01/26/2020. (6) Alcohol abuse: 02/14 -patient giving inconsistent reports here about his alcohol use, initially stating he has not drank "in years," but reviewed multiple presentations here in the past year with alcohol intoxication. -AWSS protocol started as above to target alcohol, benzodiazepine, and gabapentin withdrawal. 02/15 -patient's sister reports he has longstanding alcoholism. He has given inconsistent and untrue reports regarding his alcohol use here. Continue to provide education and engage him in motivational interviewing. Recommend peers support groups, such as AA, to target both his addiction issues and assist with increased social supports. 02/16 -the patient continues to minimize his alcohol use. He is not currently showing any symptoms of alcohol withdrawal. (7) Protein malnutrition: 02/14 -dietary met with him today due to low BMI and difficulty eating (edentulous). Continue easy to chew diet and monitor p.o. intake. (8) Constipation: 02/15 -Patient reporting constipation, last bowel movement this morning but was hard. Reports previous benefit from docusate/senna, will order here. Encourage high-fiber diet, adequate water intake, and use of prune juice as needed. Risk Factors Assessment Male: Yes : Yes Do You Have Access To A Gun?: Yes Health Problems: Yes Substance Use Disorders: Yes Hopelessness: Yes Protective Factors Assessment Druze Beliefs: Yes : No (technically , but has been from for years, no contact) Responsible for Young Children: No Employed: No Stable Relationships: No Supportive Family: No Interval History Identifying Information RK HUNT is a 64-year-old M who currently lives in [place] in an apartment alone, has a history of chronic back pain, depression, and anxiety, and was admitted on 02/14/20 10:24 on a 201 voluntary commitment after making suicidal statements to his sister over the phone. Pt was brought to the ED on a 302 warrant by police, but signed in voluntarily for treatment. Chief Complaint " I got a lot of physical problems and it affects my mental health.". Review of Systems Sleep Information Total Hours of Sleep: 4 Meal Information Percent Meal Consumed - Breakfast: 100 Percent Meal Consumed - Lunch: 100 Percent Meal Consumed - Dinner: 100 Subjective Subjective Patient was seen & assessed and interval progress reviewed with treatment team. I met individually with the patient in order to assess his current mental status, evaluate his response to treatment, make any necessary changes in the patient's treatment regimen and coordination with the patient, and address issues, questions and concerns that may arise. As noted above, the patient indicates that he feels that his primary problem is chronic pain associated with spinal stenosis of the neck and lumbar disc disease that results and substantial low back pain and pain in a sciatic distribution. Within this context, the patient reports that he feels depressed, and supposes that if he were to not be in so much pain he would be not be depressed at all. He cites substantial difficulty ambulating due to to both his lumbar disc disease and, in addition, venous stasis involving his legs bilaterally. Accordingly, because of this his chronic pain, has difficulty ambulating, and his inability to sit comfortably for a long he feels that he is socially isolated and struggles with tasks such as meal preparation, laundry, and cleaning his house. (Of note is the fact that the patient's friend has advises that the patient's apartment is "immaculate," and the patient explains that while he is able to attend to his activities of daily living including keeping his apartment in good shape and acquiring meals, these tasks represent a source of significant struggle for the patient. Today, the patient talks about how disappointed he is that his son had invited him to move to [place], but then essentially abandoned him here and has little or no direct contact. The patient states, "I really feel my son brought me here under false pretenses. He told me that he had a "nice" And that I could stay in. But the place was in shambles. It was heated with the wood stove, and I am not in any physical shape to carry firewood. There were lots of mice and other vermin, and I could not easily access it because the road that led to it was not easily accessible in a regular car." Patient describes how he ended up moving to a [facility] in [facility]. He notes that he likes [place], but because it is a town with a lot of hills he is not able to walk very far and it, and, in fact, has trouble ambulating from the parking lot to his residence because the walk is uphill and that is a particular struggle for him. He con tinues to be med seeking and asked me if I could give him something to get rid of his pain. He mentioned that he had been taking narcotic pain medications and lorazepam for anxiety and panic attacks. However, when I ask him if anyone had offered him an explanation as to why we are not providing him with those particular medications the patient nodded and said, "yes. All admit that I was using more than I should have, and I was taking them together, and they explained that that was dangerous." He did say that he was receptive to other ideas for pain management. We talked about the option of orthopedic surgery to address some of his pain management problems. He is aware that he had been recently turned down by a local orthopedic surgeon, and it is our understanding that the reason the orthopedic surgeon declined to perform the surgery is that the patient does not have anyone with whom he can stay during the anticipated extensive convalescent period. Patient also talked about the option of returning to his home state of [place]. He has a 68-year-old brother and an 82-year-old sister, both of whom live in the [place], [place] area. His brother is described as being essentially a paraplegic following back surgery, but the brother's is physically able to provide support services. His sister is similarly able to assist him, but neither sibling is in a position to provide [facility] with a place to live. He notes that he had not been able to get the recommended back surgery and [place] because, at the time, he lacked the necessary insurance. However, since that time he has turned 64 and now has Medicare which as he understands will cover the surgery. We talked about non- narcotic medications that can be used for pain management. Physical Exam Psychiatric Orientation: alert, oriented x 3 and cooperative Apperance: appropriately dressed, appropriately groomed and appeared stated age (Appeared older than stated age) Eye Contact: + fair eye contact Motor Behavior: + psychomotor retardation Patient speech is somewhat slowed and monotonous in tone. Affect: + depressed affect (But he brightens considerably during the encounter.) Mood: + anxious mood Thought Process: goal directed thought process and linear/logical thought process Thought Content: reality based without delusions Suicidal Thoughts: denies suicidal thoughts and denies suicidal plan The patient acknowledges that when he was speaking with his sister on the phone he did make reference to wondering if he could continue to "go on" and so much pain. He notes that his sister was aware that he owned a gun, and he said he feels that she overreacted and began worrying that he might use the gun to commit suicide. The patient says that he was not considering suicide. At the sister's request he look for the gun which he said was locked in a small gun locker, but to his surprise he was able to find neither the gun locker nor the gun. Later, he was informed that the police had gone through his apartment, found the gun, and secured it. Homicidal Thoughts: denies homicidal plan Hallucinations: no auditory hallucinations and no visual hallucinations Cognition: recent memory grossly intact, remote memory grossly intact and language grossly intact Estimated Intelligence: average estimated intelligence Insight: + fair insight Judgement: + fair judgement Vital Signs (Past 24 Hours) Last Vital Signs Temp 36.7 C 02/17/20 06:00 Pulse 111 H 02/17/20 06:41 Resp 18 02/17/20 06:00 BP 125/75 02/17/20 06:41 Pulse Ox 93 02/14/20 07:17 Results & Data ([facility]) Current Inpatient Medications Current Inpatient Medications: Current Inpatient Medications Acetaminophen (Acetaminophen 325 Mg Tab) 650 mg PO Q6H PRN PRN Reason: Pain, Moderate Stop: 03/15/20 15:19 Last Admin: 02/17/20 08:37 Dose: 650 mg Documented by: Amitriptyline HCl (Amitriptyline Hcl 10 Mg Tab) 10 mg PO TID GREGORY Stop: 03/18/20 20:59 Amitriptyline HCl (Amitriptyline Hcl 25 Mg Tab) 25 mg PO NOW STA Stop: 02/17/20 15:34 Atorvastatin Calcium (Atorvastatin 10 Mg Tab) 10 mg PO DAILY GREGORY Stop: 03/16/20 08:59 Last Admin: 02/17/20 07:58 Dose: 10 mg Documented by: Diclofenac Sodium (Diclofenac Sod 1% Gel 100 Gm Tube) 4 gm EXT QID GREGORY Stop: 03/15/20 16:59 Last Admin: 02/17/20 07:55 Dose: 4 gm Documented by: Docusate Sodium (Docusate Sodium 100 Mg Cap) 100 mg PO BID PRN PRN Reason: Constipation Stop: 03/15/20 15:17 Gabapentin (Gabapentin 600 Mg Tab) 600 mg PO Q12H GREGORY Stop: 02/18/20 00:01 Last Admin: 02/17/20 11:14 Dose: 600 mg Documented by: Gabapentin (Gabapentin 600 Mg Tab) 600 mg PO Q24H GREGORY Stop: 02/19/20 00:01 Hydroxyzine HCl (Hydroxyzine Hcl 25 Mg Tab) 25 mg PO Q6H PRN PRN Reason: Anxiety Stop: 03/16/20 08:14 Last Admin: 02/16/20 21:56 Dose: 25 mg Documented by: Ibuprofen (Ibuprofen 200 Mg Tab) 400 mg PO Q6H PRN PRN Reason: Pain Stop: 03/15/20 15:18 Lorazepam (Lorazepam 1 Mg Tab) 1 mg PO ONE PRN; Protocol PRN Reason: EtoH Withdrawal AWSS 6-10 Mirtazapine (Mirtazapine Tab 15 Mg Tab) 15 mg PO HS GREGORY Stop: 03/16/20 21:59 Last Admin: 02/16/20 20:46 Dose: 15 mg Documented by: Ondansetron HCl (Ondansetron 4 Mg Od Tab) 4 mg PO Q6H PRN PRN Reason: nausea and vomiting Stop: 03/15/20 15:19 Last Admin: 02/15/20 05:51 Dose: 4 mg Documented by: Pantoprazole Sodium (Pantoprazole 40 Mg Tab) 40 mg PO QAM GREGORY Stop: 03/16/20 08:59 Last Admin: 02/17/20 07:58 Dose: 40 mg Documented by: Propranolol HCl (Propranolol Hcl 10 Mg Tab) 10 mg PO BID [facility] Stop: 03/17/20 10:14 Last Admin: 02/17/20 07:58 Dose: 10 mg Documented by: Senna/Docusate Sodium (Docusate Sodium/Senna 50/8.6mg Tab) 1 tab PO QAM [facility] Stop: 03/17/20 10:29 Last Admin: 02/17/20 07:58 Dose: 1 tab Documented by: Mental Health & Subst Abuse Tx Psychiatrist Name of Psychiatrist: Margot Zafar, [id number] [place] [facility] Date of Appointment with Psychiatrist: 02/22/20 Time of Appointment with Psychiatrist: 10:30 Psychiatric Appointment Comment: [facility] will pick you up at 9:30 for appt Therapist Name of Therapist: Psych Rehab ([facility] through [facility]) Therapist's Therapy Appointment Comment: Shad Blake is referring and will provide you with specifics [employer] Name of [employer] Driver: Shad Blake- CM- [employer] Phone Number for [employer]: [phone] Date of Appointment with [employer] Driver: 02/20/20 Time of Appointment with [employer] Driver: 2pm, either at home or [facility] Case Management Appointment Comment: [address] [place] [address] Post Discharge Appointments Primary Care Physician Name Of Family Doctor: Dr. Hernando Morelos/[facility] Date of Appointment with PCP: 02/22/20 Time of Appointment with PCP: 3pm Provider Appointment Comment: [address] [place] [address], [address], [place] [address] Pain Clinic Name of Pain Clinic: [facility], [place]el[facility] Phone Number for Pain Clinic: [phone] Date of Appointment with Pain Clinic: 02/23/20 Time of Appointment with Pain Clinic: 11am Neurologist Name of Neurologist: Dr. Goodwin [facility] Neurology Neurologist's Date of Appointment with Neurologist: 04/18/20 Time of Appointment with Neurologist: 3:45 Contact Information Discharge Discharge Address: [address] [place] [id number] (1) Depression Active/Remission status: currently active Depression Type: major depressive disorder Major depression episode severity: mild Major depression recurrence: single episode Qualified Code(s): F32.0 - Major depressive disorder, single episode, mild (2) Chronic pain Chronic pain type: chronic pain syndrome Qualified Code(s): G89.4 - Chronic pain syndrome
[2020-02-17] MEDS ORDERED: ALUMINUM/MAGNESIUM SUSP 30 ML UDC PO STA (19:20)
--- NOTE | 2020-02-17 20:40 | XRay Report ---
XR chest 1V portable CLINICAL HISTORY: Chest pain. COMPARISON STUDY: Chest radiograph and chest CT November 23, 2019. FINDINGS: Elevation of the left hemidiaphragm is unchanged. There is no pneumothorax or pleural effus ion. Linear left basilar opacity favors atelectasis. There is no consolidation or evidence for pulmon milton edema. Cardiomediastinal silhouette is stable. S-shaped scoliosis of the thoracolumbar spine is i ncidentally noted. IMPRESSION: No acute cardiopulmonary findings. No change in appearance of the chest. ACT 112: Negative or not required by law. Electronically signed by: Mode Real M.D. 02/17/2020 8:39 PM
[2020-02-17] MEDS: AMITRIPTYLINE HCL 10 MG TAB PO SCH (20:59)
[2020-02-17] MEDS: MIRTAZAPINE TAB 15 MG TAB PO SCH (21:00)
--- NOTE | 2020-02-17 22:05 | Progress Note ---
Date of Service February 17, 2020 Assessment & Plan Admission and Anticipated Discharge Date Admission Date: February 14, 2020 Subjective called earlier as patient c/o dyspepsia with pain radiating to the chest, initially 02/05 with abdominal bloating after eating pasta. No cardiac hx. 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 Patient tachy on low dose beta iva for anxiety. Started TCA today. Initially reported last EKG October but did have some PACs on EKG 02/10. EKG obtained, tachy of course but some ?unusual progression in precordial leads. Patient's symptoms improved with Maalox 12/06. Troponin ordered X1 which was negative and CXR shows some atelectasis but no acute disease. Case reviewed with [facility] hospitalist to determine need for formal consult. Repeat BP and P obtained by nursing after hs meds. Results & Data ([facility]) Vital Signs (Past 12 Hours) Vital Signs Temp Pulse Resp BP Pulse Ox 02/17/20 19:43 36.6 C 02/17/20 19:06 36.6 C 113 H 18 118/78 99
[2020-02-18] MEDS: GABAPENTIN 600 MG TAB PO SCH (00:16)
[2020-02-18] MEDS: ACETAMINOPHEN 325 MG TAB PO PRN ×3 (06:37→17:43)
[2020-02-18] MEDS: DICLOFENAC SOD 1% GEL 100 GM TUBE EXT SCH ×4 (06:47→20:48)
[2020-02-18] MEDS: AMITRIPTYLINE HCL 10 MG TAB PO SCH ×2 (08:45→14:08)
[2020-02-18] MEDS: ATORVASTATIN 10 MG TAB PO SCH (08:45)
[2020-02-18] MEDS: PANTOprazole 40 MG TAB PO SCH (08:45)
[2020-02-18] MEDS: PROPRANOLOL HCL 10 MG TAB PO SCH ×2 (08:45→20:47)
[2020-02-18] MEDS: DOCUSATE SODIUM/SENNA 50/8.6MG TAB PO SCH (08:45)
[2020-02-18] MEDS: ONDANSETRON 4 MG OD TAB PO PRN (09:58)
--- NOTE | 2020-02-18 10:51 | Psychiatric Progress Note ---
Date of Service February 18, 2020 Impression / Recommendations Impression 64-year-old male admitted voluntarily for inpatient psychiatric treatment after presenting to the ED via police after verbalizing thoughts to shoot himself to his sister during a phone call (sister resides in [place]). Sister called police as she was concerned about the patient's remarks, and they found him at home, intoxicated, and he reported having a loaded gun in his home, but could not find it. Police located at and confiscated it, according to patient. Patient sees his depressive and anxiety symptoms as related to pain. Sister reports he has a long history of alcoholism and chronic pain for the last 20 years, but no history of mental health issues until more recently. Due to multiple hospitalizations for falls and ongoing misuse/abuse of prescription opiates, benzodiazepines, stimulants, and gabapentin, and the fact that he had been out of these medications for approximately a week on presentation, they were discontinued after discussion with his PCP. All of his medication bottles were brought in, and all were empty, most of them long before they should have been. A 90-day prescription of gabapentin was found empty ~2 weeks after filling it, and also ran out of methadone, oxycodone, methylphenidate, and alprazolam early. The patient reports adverse effects with previous trials of SSRIs/SNRIs, so we started a trial of mirtazapine to target mood and anxiety while hopefully seeing some benefit for pain, improved sleep, and appetite stimulation. Buspirone was initially continued for anxiety, but he does not think it has been helpful and it may be contributing to chronic dizziness, so we will discontinue it in favor of a propanolol trial. PT and OT consults have been ordered, and we are exploring ways to increase supports (referral for BCM, psychiatric care, skilled psych rehab) and also managing multiple comorbid medical conditions. The patient has been visited by a case filler who is in the process of setting up community support services for the patient, including case management and other services primarily related to transportation. The patient understands that his best chance of effective pain management rests with the pain management clinic. At the present time, we feel that although the patient says that he is not currently suicidal we find that inpatient psychiatric admission is necessary as patient remains at acute risk of harm to self pending are being able to secure adequate support services for the patient in the community. Reviewed 02/18/20. (1) Suicidal ideation: 02/13 - Admitted to a locked inpatient behavioral health unit, on q15 minute safety checks - Encourage medication initiation/adjustments as indicated - Encourage participation in group and recreational therapies - Gather collateral information from outpatient providers - Suggest family meeting to involve outpatient supports in safety planning - Arrange appropriate aftercare 02/14 -Recommend family meeting with sister and/or son, who patient states he called and spoke to today. Although he would like to return to [place], he does not have the finances to do so now. -Referring for increased supports in the community including a blended case filler and skills psych rehab. -Encourage patient to attend and participate in groups, and work on discharge safety plan. -Recommend gun be removed - unclear if police confiscated it or if it is still in his home? 02/15 -Patient states police confiscated his gun. -Ideally patient would have somebody monitoring his medications, keeping them locked and secured and dispensing them to him daily. He claims he has no one who can perform this task. Recommended mobile med management, but he is not eligible due to his insurance. Continue to explore options for support and safety with his medications. Consider an Office of Aging referral. 02/16 -Patient reports that he continues to be concerned about returning home because he is isolated and has a limited number of supports. This afternoon, we spoke with management of the building which the patient lives, and she told us that the biggest concern about the patient is the fact that he is emotionally needy and seeks attention. The patient talks at some length about his disappointment that his son is not stepping up to help him, and he believes that his son might have encouraged him to relocate from [place], [place] to [facility] because he wanted to rent out his unoccupied cabin, and the patient had agreed to pay rent. Although the patient reports that he is not suicidal, he has made statements such as "I do not see how I can go on living in this much pain," and he acknowledges that he has started using alcohol as a way of managing pain. Also, the patient notes that he has been steadily losing weight because he struggles to secure in transport his meals. Our concern is that without the availability of wraparound community resources, which we are actively pursuing and expect to have in place at the beginning of next week, and serious physical harm may come to the patient. (2) Depression: 02/13 - Suggested initiation of mirtazapine 7.5mg tonight with titration as tolerated to target depression and anxiety, as this may provided additional benefit for some pain relief as well as appetite stimulation and sedative effects to assist with sleep. Pt reports difficulty tolerating primary serotonergic agents in the past, so hopefully with find benefit from mirtazapine as an alternative. - Admittedly, patient's depressed mood is likely related to his chronic pain history. Unfortunately patient's previous medication regimen is not ideal for numerous reasons and we will attempt to make adjustments to pursue an effective, but safer option for long-term management of chronic pain concerns. See below. - Encourage participation in group and recreational programming - Assist with development of healthy and effective coping strategies. - Encourage family meeting - possibly with sister in [place], as patient does not have local support 02/14 -Increase mirtazapine to 15 mg at bedtime. -Refer for outpatient mental health treatment ([facility]). 02/15 -Increase mirtazapine to 30 mg at bedtime. -Shad Blake has been assigned as his blended case filler and will come to meet with the patient today on the unit. 02/16 -Shad Blake met with the patient today and is in the process of applying for various medically necessary surfaces that allow the patient to safely return to the community. -Indications are that mirtazapine 30 mg at bedtime may be assisting the patient in his effort to sleep. 02/17 --Reviewed above. Review of chart shows mirtazapine dose still 15 mg, will increase as previously discussed. (3) Anxiety: 02/13 - Patient meets criteria for generalized anxiety disorder. Current symptoms also complicated by withdrawal from benzodiazepines, alcohol, gabapentin, and opiates. - Initiating mirtazapine as described above. Continue buspirone TID. - Assist with development of healthy and effective coping strategies 02/14 -Encourage patient to be compliant with buspirone in order to see full effect. He reports not taking it at home as he has not felt it was effective, but it is unclear if poor adherence is contributing to lack of effect. -Strongly encourage patient to participate in groups and work on behavioral techniques for managing anxiety. He has longstanding and persistent anxiety related to his pain, and have advised him of our recommendations after discussion with his PCP that benzodiazepines be avoided given drug drug interactions, significant risk of side effects given his age, recent history of multiple falls and hospitalizations for the same, and ongoing alcohol use. He is unable to clearly state when he last took alprazolam, although 2 drug screens in the ER in the past week were negative for benzodiazepines. To be safe, and to prevent withdrawal and also assist with treatment of acute anxiety, I will place him on the gabapentin taper and AWSS protocol for benzodiazepine and alcohol withdrawal. 02/15 -Ongoing psychoeducation provided regarding MRAEN and complicating factors including withdrawal from multiple substances. Patient requires frequent reminders of why controlled substances were stopped and redirection to utilize behavioral techniques for managing anxiety. -He has had some mild tachycardia, so I will start propanolol 10 mg twice daily to target anxiety. -He does not feel buspirone has been helpful, so we will discontinue it. 02/16 -Patient attributes his anxiety to chronic pain. The current anxiety may also be a associated with his long-term use of opioid and sedative medications. -The patient reports that he has not yet noticed any favorable effect from propranolol. --On several occasions the patient is come to the nursing station reported that he is having a panic attack. However, he is not demonstrating tachycardia, shortness of breath, or visual evidence of emotional distress. He does respond to reassurance. 02/17 --Reviewed above. still some tachy/anxiety, hesitate to increase propranolol given BP. (4) Chronic pain: 02/13 - Given patient has been off numerous of his controlled substances for 5-7 days due to running out of medications early, suggest continuing to hold methadone, oxycodone, gabapentin, alprazolam and methylphenidate until we are able to coordinate with his PCP. It appears from outpatient progress notes that the patient was on this medication regimen prior to starting treatment with Dr. Morelos, having presented a note from his PCP in [place] warning that dis continuation of these medications would undoubtedly lead to withdrawal. - While there is legitimate evidence of conditions leading to patient's pain, he has been on a complicated and concerning medication regimen for several years which is even more concerning as his age advances. Until we are able to coordinate patient patient's PCP, will encourage supportive treatment - acetaminophen, ibuprofen, diclofenac gel, warm compresses, stretching, and other strategies. - Pt is admittedly unhappy about current recommendations, numerous explanations provider to the patient regarding serious risks associated with his current regimen as well as concern for misuse/abuse of his medications. 02/14 -Reviewed with his PCP, patient has been on methadone, oxycodone, and methylphenidate for years for chronic pain, but at this time the risks of this medication regimen appear to outweigh the benefits. As he had been off the opiates for almost a week prior to presentation, they were held on admission. No symptoms of opiate withdrawal endorsed today, but will continue to monitor. We will start gabapentin taper as above, and could consider continuing that medication as an outpatient, but I am concerned about his abuse of it as police report that he had completed a 90-day prescription in 2 weeks. The patient is a poor historian with respect to his medication adherence. He may benefit from mobile med management. 02/15 -PT and OT consults ordered for today. Patient may benefit from cane or other assistive devices. -Coordinate with pain clinic and ensure timely follow-up after discharge. He was also referred to neurology and for an EMG and these need to be rescheduled as well. 02/16 -Patient remains drug-seeking and has frequently come to the nursing station to request "something, anything" for pain!" He is specifically seeking opioids and lorazepam. However, the patient is also able to clearly and correctly articulate why we are not supplying these medications. -Patient periodically tells peers that he is experiencing withdrawal from his outpatient medications, but the fact is that he had been out of these medications for a number of days prior to admission and there are no current objective symptoms to indicate actual withdrawal. However, the patient does seem to be craving opioids and benzodiazepines. -We will offer the patient a trial of amitriptyline, beginning with the 25 mg test dose and then 10 mg 3 times daily scheduled for pain management. We are aware of the risks associated with amitriptyline in older adults, but in this case we feel that the anticipated benefit outweighs the present risk. 02/17 --Reviewed. Will consult PT for ambulatory dysfunction as discussed above, quad cane pending additional input. Given reported hx of PUD with perforation and/or stricture with pain after meals (worse than his back pain) will consult [facility] [place] hospitalist. No emesis so no amylase or lipase for now. Obviously chronic but acute trigger for his panic/depression that resulted in hospitalization. D/C Ibuprofen as previously caused ulceration. (5) Opioid dependence: 02/13 - Monitor for signs and symptoms of withdrawal. Pt admits to utilization of alcohol when he ran out of his pain medications, but states alcohol was 5 hard ciders over the course of one day. - Will need to coordinate treatment plan with patient's PCP to ensure he is able to be continued on an appropriate medication regimen when discharged. Message left with staff, awaiting return phone call. 02/14 -Reviewed hospital records and PDMP: Patient had been out of oxycodone and methadone for 5 days when he presented to the hospital, and denies current symptoms of opiate withdrawal. Continue to monitor and can use clonidine if needed as well as other supportive treatment. Per PDMP, he is feeling methadone early each month, and just filled a prescription the day prior to hospitalization on 02/13/2020. He also filled methylphenidate prescription on that day, and filled alprazolam #90 tabs on 02/03/2020, and oxycodone #60 tabs on 01/26/2020. (6) Alcohol abuse: 02/14 -patient giving inconsistent reports here about his alcohol use, initially stating he has not drank "in years," but reviewed multiple presentations here in the past year with alcohol intoxication. -AWSS protocol started as above to target alcohol, benzodiazepine, and gabapentin withdrawal. 02/15 -patient's sister reports he has longstanding alcoholism. He has given inconsistent and untrue reports regarding his alcohol use here. Continue to provide education and engage him in motivational interviewing. Recommend peers support groups, such as AA, to target both his addiction issues and assist with increased social supports. 02/16 -the patient continues to minimize his alcohol use. He is not currently showing any symptoms of alcohol withdrawal. (7) Protein malnutrition: 02/14 -dietary met with him today due to low BMI and difficulty eating (edentulous). Continue easy to chew diet and monitor p.o. intake. (8) Constipation: 02/15 -Patient reporting constipation, last bowel movement this morning but was hard. Reports previous benefit from docusate/senna, will order here. Encourage high-fiber diet, adequate water intake, and use of prune juice as needed. Risk Factors Assessment Male: Yes : Yes Do You Have Access To A Gun?: Yes Health Problems: Yes Substance Use Disorders: Yes Hopelessness: Yes Protective Factors Assessment Gnosticist Beliefs: Yes : No (technically , but has been from for years, no contact) Responsible for Young Children: No Employed: No Stable Relationships: No Supportive Family: No Interval History Identifying Information RK HUNT is a 64-year-old M who currently lives in [place] in an apartment alone, has a history of chronic back pain, depression, and anxiety, and was admitted on 02/14/20 10:24 on a 201 voluntary commitment after making suicidal statements to his sister over the phone. Pt was brought to the ED on a 302 warrant by police, but signed in voluntarily for treatment. Reviewed 02/18/20. Chief Complaint "I came here for belly pain and you don't believe me and took me off of everything". Review of Systems Notes N as above, slight tachy due to pain/anxiety Sleep Information Total Hours of Sleep: 5 Sleep Comments: pt DK @0600 and thereafter. pt on q-15 minute checks Meal Information Percent Meal Consumed - Breakfast: 100 Percent Meal Consumed - Lunch: 100 Percent Meal Consumed - Dinner: 90 Subjective Subjective Patient was seen & assessed and interval progress reviewed with nursing and social work. Patient overwhelmed with discussions of aftercare. Continues with significant ambulatory dysfunction (uses wheeled walker at home, unable to lift (his report) regular walker here). PT consult pending. He had episode of bandlike pain starting between shoulder blades and radiating to side last pm. See interim note re: work up. Occured after meal last pm and now leaving am group with nausea. The pain triggers panic reaction and now depressed that "after 10 years" his meds are changed and discussed rationale and also timing, just started Elavil yesterday. Physical Exam Psychiatric Orientation: alert Apperance: appropriately groomed Eye Contact: + fair eye contact leg jerking due to neuropathy Speech: normal rate/rhythm/volume of speech Affect: + depressed affect Mood: + anxious mood Thought Process: + circumstantial thought process Thought Content: reality based without delusions Suicidal Thoughts: denies suicidal thoughts Homicidal Thoughts: denies homicidal thoughts Hallucinations: no auditory hallucinations and no visual hallucinations Cognition: language grossly intact Insight: + limited insight Judgement: + limited judgement Vital Signs (Past 24 Hours) Last Vital Signs Temp 36.6 C 02/18/20 06:21 Pulse 99 H 02/18/20 06:23 Resp 18 02/18/20 06:21 BP 105/71 02/18/20 06:23 Pulse Ox 98 02/17/20 21:58 Results & Data ([facility]) Laboratory Results Laboratory Results - last 24 hr 02/17/20 20:15 Troponin I < 0.015 Current Inpatient Medications Current Inpatient Medications: Current Inpatient Medications Acetaminophen (Acetaminophen 325 Mg Tab) 650 mg PO Q6H PRN PRN Reason: Pain, Moderate Stop: 03/15/20 15:19 Last Admin: 02/18/20 06:37 Dose: 650 mg Documented by: Amitriptyline HCl (Amitriptyline Hcl 10 Mg Tab) 10 mg PO TID [facility] Stop: 03/18/20 20:59 Last Admin: 02/18/20 08:45 Dose: 10 mg Documented by: Atorvastatin Calcium (Atorvastatin 10 Mg Tab) 10 mg PO DAILY [facility] Stop: 03/16/20 08:59 Last Admin: 02/18/20 08:45 Dose: 10 mg Documented by: Diclofenac Sodium (Diclofenac Sod 1% Gel 100 Gm Tube) 4 gm EXT QID [facility] Stop: 03/15/20 16:59 Last Admin: 02/18/20 06:47 Dose: 4 gm Documented by: Docusate Sodium (Docusate Sodium 100 Mg Cap) 100 mg PO BID PRN PRN Reason: Constipation Stop: 03/15/20 15:17 Gabapentin (Gabapentin 600 Mg Tab) 600 mg PO Q24H [facility] Stop: 02/19/20 00:01 Hydroxyzine HCl (Hydroxyzine Hcl 25 Mg Tab) 25 mg PO Q6H PRN PRN Reason: Anxiety Stop: 03/16/20 08:14 Last Admin: 02/17/20 16:22 Dose: 25 mg Documented by: Lorazepam (Lorazepam 1 Mg Tab) 1 mg PO ONE PRN; Protocol PRN Reason: EtoH Withdrawal AWSS 6-10 Mirtazapine (Mirtazapine Tab 15 Mg Tab) 15 mg PO HS [facility] Stop: 03/16/20 21:59 Last Admin: 02/17/20 21:00 Dose: 15 mg Documented by: Ondansetron HCl (Ondansetron 4 Mg Od Tab) 4 mg PO Q6H PRN PRN Reason: nausea and vomiting Stop: 03/15/20 15:19 Last Admin: 02/18/20 09:58 Dose: 4 mg Documented by: Pantoprazole Sodium (Pantoprazole 40 Mg Tab) 40 mg PO QAM [facility] Stop: 03/16/20 08:59 Last Admin: 02/18/20 08:45 Dose: 40 mg Documented by: Propranolol HCl (Propranolol Hcl 10 Mg Tab) 10 mg PO BID [facility] Stop: 03/17/20 10:14 Last Admin: 02/18/20 08:45 Dose: 10 mg Documented by: Senna/Docusate Sodium (Docusate Sodium/Senna 50/8.6mg Tab) 1 tab PO QAM [facility] Stop: 03/17/20 10:29 Last Admin: 02/18/20 08:45 Dose: 1 tab Documented by: Mental Health & Subst Abuse Tx Psychiatrist Name of Psychiatrist: Margot Zafar, [address] [facility] Date of Appointment with Psychiatrist: 02/22/20 Time of Appointment with Psychiatrist: 10:30 Psychiatric Appointment Comment: [facility] will pick you up at 9:30 for appt Therapist Name of Therapist: Psych Rehab (probably through [facility] Therapist's Therapy Appointment Comment: Shad Blake is referring and will provide you with specifics Registered Nurse Maternal Child Name of Registered Nurse Maternal Child: Shad Blake- CM- [facility] Phone Number for Registered Nurse Maternal Child: [phone] Date of Appointment with Registered Nurse Maternal Child: 02/20/20 Time of Appointment with Registered Nurse Maternal Child: 2pm, either at home or [facility] Case Management Appointment Comment: [address] [place] [address] Post Discharge Appointments Primary Care Physician Name Of Family Doctor: Dr. Hernando Morelos/[facility] Date of Appointment with PCP: 02/22/20 Time of Appointment with PCP: 3pm Provider Appointment Comment: [address] [place] [address] [address], [address] [place] [address] Pain Clinic Name of Pain Clinic: [facility], [facility] Phone Number for Pain Clinic: [phone] Date of Appointment with Pain Clinic: 02/23/20 Time of Appointment with Pain Clinic: 11am Neurologist Name of Neurologist: Dr. Goodwin, [facility] [place] [place] Neurology Neurologist's Date of Appointment with Neurologist: 04/18/20 Time of Appointment with Neurologist: 3:45 Contact Information Discharge Discharge Address: [address] [place] [address] (1) Chronic pain Chronic pain type: chronic pain syndrome Qualified Code(s): G89.4 - Chronic pain syndrome (2) Depression Active/Remission status: currently active Depression Type: major depressive disorder Major depression episode severity: mild Major depression recurrence: single episode Qualified Code(s): F32.0 - Major depressive disorder, single episode, mild
[2020-02-18] MEDS: ALUMINUM/MAGNESIUM SUSP 30 ML UDC PO PRN (11:57)
--- NOTE | 2020-02-18 13:04 | XRay Report ---
K[facility] HISTORY: recent concern partial SBO, ongoing abd pain COMPARISON: [facility] 02/13/2020. Abdomen and pelvis CT 02/12/2020. FINDINGS: Multiple mildly dilated gas-filled loops of small bowel seen within the abdomen and pelvis. There is gas and stool seen within the borderline distended colon. The rectum is mildly distended wi th a stool ball measuring up to 7 cm. The stomach is not significantly distended. Chronic elevation l eft hemidiaphragm is again noted. No renal calculi. No ureteral calculi. No pneumoperitoneum or pneu matosis. IMPRESSION: Multiple mildly dilated gas-filled loops of small bowel seen throughout the abdomen as well as border line distended gas-filled and stool-filled colon. Findings favor an ileus. A partial small bowel obst ruction cannot be excluded. This has slightly improved. ACT 112: Negative or not required by law. Electronically signed by: Cash Santoro M.D. 02/18/2020 1:03 PM
--- NOTE | 2020-02-18 13:18 | Hospitalist Consultation ---
Date of Consultation February 18, 2020 Assessment & Plan (1) Muscle spasm of back: His upper back and rib pain appear to be muscle spasm which can be felt on exam. No significant lab abnormalities to fully explain this although he is dehydrated (recommend pushing oral intake of fluids) and a low normal calcium certainly not helping. Low normal calcium (corrected 8.5), will repeat in level in AM with ionized Ca and Vit D, replace with Caltrate Plus BID. Repeat BMP in AM to assess for BUN trend. Given symptoms association to starting amitriptyline will initially discontinue this. If stopping the amitriptyline is unsuccessful, options would be to start a skeletal muscle relaxant such as baclofen but given plan is to reduce sedating medication would only recommend a short course of this. Possible the gabapentin was having a beneficial effect in addition. He should be over the peak and likely to have completed his opiate withdrawal therefore feel this is less likely contributing. (2) Nausea: Episode this morning appears secondary to his back muscle spasm pain. I am unsure whether this was the epigastric pain medicine consulted for but I do not suspect gastritis, GERD, esophageal stenosis cause for his pain based on my discussion and exam today. If the pain referred to was his pain for his ER visit on I suspect this was related to opiate withdrawal at that time. XR KUB obtained to continue to monitor ileus. Clinically he does not have small bowel obstruction. He has been taking senna for the last 2 days without worsening abdominal pain. (3) Ileus: Suspect this is from chronic opiate use. Ok to continue using senna as long as passing flatus, no increasing abdominal pain, nausea or vomiting. (4) Chronic pain: Acetaminophen. Could consider Mobic or Celebrex as prior stomach ulcer were 3 years ago, as I understand he was not taking a PPI at that time and also was taking over the recommended maximum of Advil. Avoiding opiates as per behavioral health plan. (5) Restless legs: Appears to also have also started after amitriptyline started +/- gabapentin reduced. (6) Protein malnutrition: (7) Hyperlipidemia: (8) Acid reflux: None currently. Continue pantoprazole 40mg PO daily. (9) Alcohol withdrawal: Gabapentin given for this. No current withdrawal. (10) Ambulatory dysfunction: Suspect related to his cervical spinal stenosis given prior notes. Does n ot appear to be acute. (11) Degenerative cervical spinal stenosis: Known severe central canal stenosis C3-4 C4-5. Initially had planned decompression for this but as far as I am aware this was never performed. Last Dr Álvarez ortho consult was regard to lower back pain and lumbar spine MRI rather than the cervical spine. Recommend outpatient follow up for cervical spinal stenosis with Dr Álvarez - he is a poor surgical candidate at this present time given degree of malnutrition and mental health problems. Thank you for the consultation we will continue to see the patient and review labs tomorrow. History of Present Illness Reason for Consultation: Epigastric pain after meals triggering panic Attending Physician: Chantal Burton MD History of Present Illness Juan Carlos Fleming is a 64 year old male currently on the behavioral health unit due to suicidal ideation. Medicine were consulted for "epigastric pain after meals triggering a panic". The patient denies any significant epigastric pain to myself. He does note having bilateral pains around his lower ribs anteriorly and upper back. He has not previously had these pains. This started last night around 9pm and lasted severely for hours but slowly got better to around 4am this morning. About an hour after eating this morning he went to a group activity session and while sitting his upper back pain recurred and on this occasion he had associated nausea. No vomiting. He denies any constipation or diarrhea. He has ongoing occasional cramping abdominal pain. No melena or bright red blood in stool. When seen the patient was having increased restless legs. He reports this is new today. It is causing him a significant amount of distress. On multiple occasions he asked me just give me something for the pain and don't just leave me like this. He denies any fever, rhinorrhea, sweating, palpitations, presyncope or syncope. During this admission all of his chronic opiates, benzodiazepines and methylph enidate has been stopped. He also needs to restart his methylphenidate so that he has some energy and motivation to keep going. I understand these medications were discontinued as his pill bottles were found to be empty prior to when he should have run out of the medication. Therefore the assumption being he was taking more than the prescribed amounts, running out and subsequently was in withdrawal on admission. Allergies Allergy/AdvReac Type Severity Reaction Status Date / Time erythromycin base Allergy Intermediate Rash Verified 02/11/20 22:38 Home Medications Home Medications Medication Instructions Recorded Confirmed Type naloxone 4 mg/actuation nasal spray 1 sprays INTNAS Q2M #2 ea 02/01/19 02/13/20 Rx acetaminophen [Mapap 650 mg PO Q6H PRN #15 tab 03/03/19 02/13/20 Rx (acetaminophen)] sennosides-docusate sodium 1 tab PO BID PRN 05/24/19 02/13/20 History [Senna-S] diclofenac sodium [Voltaren] 4 g EXT QID #100 gm 05/27/19 02/13/20 Rx pantoprazole 40 mg tablet,delayed 40 mg PO QAM #30 tab 09/02/19 02/13/20 Rx release buspirone 15 mg tablet 15 mg PO TID #90 tab 11/28/19 02/13/20 Rx docusate sodium 100 mg capsule 100 mg PO BID PRN 01/02/20 02/13/20 History atorvastatin 10 mg tablet 10 mg PO DAILY #30 tab 01/09/20 02/13/20 Rx gabapentin 300 mg capsule 300 mg PO TID #90 cap 01/09/20 02/13/20 Rx alprazolam 0.5 mg tablet 0.5 mg PO TID PRN #90 tab 02/03/20 02/13/20 Rx oxycodone 10 mg PO BID 02/11/20 02/13/20 History ondansetron 4 mg PO Q6H PRN #12 tab 02/12/20 02/13/20 Rx methadone 10 mg tablet 10 mg PO Q8H PRN #90 tab 02/13/20 02/13/20 Rx methylphenidate HCl 10 mg tablet 10 mg PO TID #84 tab 02/13/20 02/13/20 Rx Patient History Medical History Acidosis, lactic Alcohol intoxication Anxiety Arthritis Bilateral lower leg cellulitis Constipation Degenerative cervical spinal stenosis Hearing difficulty Hyperlipidemia Left rib fracture Lumbar radicular pain Neuropathy Pneumonia Sepsis Spinal stenosis Spinal stenosis of lumbar region Stomach ulcer Surgical History History of hernia repair History of oral surgery Family History Mother Anxiety Depression Cardiac disorder Hypertension Diabetes Mesothelioma Father Mesothelioma Diabetes Brother Diabetes Other No significant family history Social History Smoking Status: Former smoker Second Hand Exposure: No; Hx Alcohol Use: Yes Alcohol type: hard liquor Hx Substance Use: Yes Last Used Substance: Hours (ago) Last Used Substance Other:: opiod dependence on methadone Preferred Language: Welsh Communication Ability: Effective Visual Impairment: Limited Hearing Ability: Normal Heel Painter Required: No Beliefs That Will Affect Care: Restorationist (Gnosticist ) Restorationist Beliefs: LATTER-DAY marital status: Legally Current Living Situation: Other Current Living Situation Comment: [facility] Feels Safe at Home: Yes Review of Systems Review of Systems: All systems reviewed & are unremarkable except as noted in HPI & below Constitutional: + body aches and + fatigue; no fever and no chills Eyes: no diplopia and no problem reported Ear, Nose, Mouth, Throat: no dizziness, no nasal congestion, no TMJ pain and no dysphagia Respiratory: no cough, no dyspnea, no hemoptysis, no sputum production and no wheezing Cardiovascular: no chest pain, no dyspnea on exertion, no orthopnea, no paroxysmal nocturnal dyspnea, no palpitations and no syncope Gastrointestinal: + constipation (Hard stools); no belching, no bloating, no early satiety, no heartburn, no coffee ground emesis and no dysphagia Genitourinary: no dysuria, no urinary frequency and no flank pain Musculoskeletal: + back pain, + neck pain, + radicular pain, + joint pain, + myalgia, + muscle weakness and + muscle atrophy; no stiffness Integumentary: + rash; no problem reported Neurologic: + unsteadiness, + generalized weakness, + lack of coordination (Lower extremities), + abnormal movements (Restless legs) and + behavioral changes (Generalized fatigue); no tremor(s) Physical Exam Constitutional: well developed, well nourished and + frail appearing; no acute distress Eyes: PERRL, conjunctivae normal, anicteric sclerae ENMT: Ears: no external ear abnormality Nose: no external nose abnormality Mouth: + dry oral mucous membranes Neck: trachea midline, no thyromegaly Cardiovascular: RRR, no murmur, no edema Musculoskeletal: Bilateral upper thoracic paraspinal trapezius muscle spasm palpated bilaterally; tenderness to palpation of this muscle consistent with his pain described Skin: no rashes, warm and dry + turgor decreased Neurologic: moves all extremities and awake Speech / Cognition: normal speech Motor/Sensory: + abnormal movement (Right > Left constant moving of lower extremities) and + sensory deficit (Bilateral lower extremity nondermatomal, peripheral neuropathy distribution numbness); no tremor and no pronator drift Cranial Nerves: PERRL, EOM intact bilaterally, normal facial strength, tongue midline, able to rotate head bilaterally, able to elevate shoulders bilaterally, no nystagmus and symmetric palate elevation Psychiatric: Orientation: alert and oriented x 3 Eye Contact: + fair eye contact Affect: + depressed affect Thought Process: linear/logical thought process Thought Content: + preoccupation (With his pain) Genitourinary: no CVA tenderness Results & Data Results & Data ([facility]) Vital Signs (Past 12 Hours) Vital Signs Temp Pulse Resp BP 02/18/20 06:23 99 H 105/71 02/18/20 06:21 36.6 C 91 H 18 104/73 Diagnostic Findings KUB IMPRESSION: Multiple mildly dilated gas-filled loops of small bowel seen throughout the abdomen as well as borderline distended gas-filled and stool-filled colon. Findings favor an ileus. A partial small bowel obstruction cannot be excluded. This has slightly improved. ECG Indication: back/shoulder pain Rate (beats per minute): 105 Rhythm: sinus tachycardia Findings: no acute ischemic change Comparison ECG Date: from (February 11, 2020) Change: the following changes noted (PACs no longer present) PG Care Time/CCT Total # of Minutes Spent Total Time Spent with Patient: Total time spent is greater than 50% in coordination of care (as documented) at patient's floor/unit and/or counseling patient: Coding Level of Care Code 21679 Inpt Consult Level 4 Diagnoses Muscle spasm of back M62.830 Nausea R11.0 Ileus K56.7 Chronic pain G89.29 Restless legs G25.81 Protein malnutrition E46 Hyperlipidemia E78.5 Acid reflux K21.9 Alcohol withdrawal F10.239 Ambulatory dysfunction R26.2 Degenerative cervical spinal stenosis M48.02
[2020-02-18 14:56] LABS: Basophils # (auto) 0.02 K/uL (0-0.2); Basophils % (auto) 0.2 %; Eosinophils # (auto) 0.13 K/uL (0-0.5); Eosinophils % (auto) 1.5 %; Hematocrit (blood only) 40.7 % (42-52); Hemoglobin 13.8 g/dL (14.0-18.0); Immature Granulocytes # (auto) 0.02 K/uL (0.00-0.02); Immature Granulocytes % (auto) 0.2 %; Lymphocytes # (auto) 1.56 K/uL (1.2-3.4); Lymphocytes % (auto) 17.9 %; Mean Corpuscular Hemoglobin 31.2 pg (25-34); Mean Corpuscular Hgb Conc 33.9 g/dL (32-36); Mean Corpuscular Volume 92.1 fL (80-100); Mean Platelet Volume 9.6 fL (7.4-10.4); Monocytes # (auto) 0.47 K/uL (0.11-0.59); Monocytes % (auto) 5.4 %; Neutrophils # (auto) 6.52 K/uL (1.4-6.5); Neutrophils % (auto) 74.8 %; Platelet Count 304 K/uL (130-400); RDW Coefficient of Variation 13.8 % (11.5-14.5); RDW Standard Deviation 46.8 fL (36.4-46.3); Red Blood Count 4.42 M/uL (4.7-6.1); White Blood Count 8.72 K/uL (4.8-10.8)
[2020-02-18 15:16] LABS: Alanine Aminotransferase 18 U/L (12-78); Albumin Level 3.4 gm/dl (3.4-5.0); Aspartate Aminotransferase 13 U/L (15-37); BUN Creatinine Ratio 31.2 (10-20); Blood Urea Nitrogen 27 mg/dl (7-18); Carbon Dioxide 26 mmol/L (21-32); Chloride 106 mmol/L (98-107); Creatinine Clr Calc Pharmacy 64.6 ml/min; Est GFR (Non-African American) 90.6; Glucose 122 mg/dl (70-99); Iron 105 mcg/dl (35-175); Magnesium 2.3 mg/dl (1.8-2.4); Potassium 4.6 mmol/L (3.5-5.1); Sodium 136 mmol/L (136-145)
[2020-02-18 15:19] LABS: Albumin Globulin Ratio 1.1 (0.9-2); Alkaline Phosphatase 68 U/L (45-117); Bilirubin,Total 0.3 mg/dl (0.2-1); Phosphorus 3.9 mg/dl (2.5-4.9); Total Protein 6.4 gm/dl (6.4-8.2); Transferrin 274 mg/dl (200-360); Transferrin Percent Saturation 27 % (20-50); Troponin I < 0.015 ng/ml (0-0.045)
[2020-02-18] MEDS: MIRTAZAPINE TAB 15 MG TAB PO SCH (20:48)
[2020-02-19] MEDS ORDERED: GABAPENTIN 600 MG TAB PO SCH
[2020-02-19] MEDS: ACETAMINOPHEN 325 MG TAB PO PRN ×3 (06:28→22:18)
[2020-02-19 07:03] LABS: BUN Creatinine Ratio 32.4 (10-20); Calcium 8.6 mg/dl (8.5-10.1); Creatinine Clr Calc Pharmacy 86.5 ml/min; Est GFR (African American) 118.3; Est GFR (Non-African American) 102.1; Potassium 4.6 mmol/L (3.5-5.1)
[2020-02-19] MEDS: PANTOprazole 40 MG TAB PO SCH (08:46)
[2020-02-19] MEDS: CALCIUM 600MG + VIT D 400 IU TAB PO SCH ×2 (08:46→20:35)
[2020-02-19] MEDS: PROPRANOLOL HCL 10 MG TAB PO SCH ×2 (08:46→20:35)
[2020-02-19] MEDS: ATORVASTATIN 10 MG TAB PO SCH (08:46)
[2020-02-19] MEDS: DOCUSATE SODIUM/SENNA 50/8.6MG TAB PO SCH (08:47)
[2020-02-19] MEDS: THIAMINE HCL 100 MG TAB PO SCH (08:47)
[2020-02-19] MEDS ORDERED: POLYETHYLENE (MIRALAX) 17 GM PACK PO SCH (09:00)
[2020-02-19] MEDS: DICLOFENAC SOD 1% GEL 100 GM TUBE EXT SCH ×4 (10:47→20:36)
--- NOTE | 2020-02-19 11:30 | Psychiatric Progress Note ---
Date of Service February 19, 2020 Impression / Recommendations Impression 64-year-old male admitted voluntarily for inpatient psychiatric treatment after presenting to the ED via police after verbalizing thoughts to shoot himself to his sister during a phone call (sister resides in [place]). Sister called police as she was concerned about the patient's remarks, and they found him at home, intoxicated, and he reported having a loaded gun in his home, but could not find it. Police located at and confiscated it, according to patient. Patient sees his depressive and anxiety symptoms as related to pain. Sister reports he has a long history of alcoholism and chronic pain for the last 20 years, but no history of mental health issues until more recently. Due to multiple hospitalizations for falls and ongoing misuse/abuse of prescription opiates, benzodiazepines, stimulants, and gabapentin, and the fact that he had been out of these medications for approximately a week on presentation, they were discontinued after discussion with his PCP. All of his medication bottles were brought in, and all were empty, most of them long before they should have been. A 90-day prescription of gabapentin was found empty ~2 weeks after filling it, and also ran out of methadone, oxycodone, methylphenidate, and alprazolam early. The patient reports adverse effects with previous trials of SSRIs/SNRIs, so we started a trial of mirtazapine to target mood and anxiety while hopefully seeing some benefit for pain, improved sleep, and appetite stimulation. Buspirone was initially continued for anxiety, but he does not think it has been helpful and it may be contributing to chronic dizziness, so we will discontinue it in favor of a propanolol trial. PT and OT consults have been ordered, and we are exploring ways to increase supports (referral for BCM, psychiatric care, skilled psych rehab) and also managing multiple comorbid medical conditions. The patient has been visited by a briefcase sewer who is in the process of setting up community support services for the patient, including case management and other services primarily related to transportation. The patient understands that his best chance of effective pain management rests with the pain management clinic. At the present time, we feel that although the patient says that he is not currently suicidal we find that inpatient psychiatric admission is necessary as patient remains at acute risk of harm to self pending are being able to secure adequate support services for the patient in the community. Reviewed 02/18/20. Plan: continue current meds and treatment plan pending additional recs re: pain from hospitalist service. Risk Factors Assessment Male: Yes : Yes Do You Have Access To A Gun?: Yes Health Problems: Yes Substance Use Disorders: Yes Hopelessness: Yes Protective Factors Assessment Advent Beliefs: Yes : No (technically , but has been from for years, no contact) Responsible for Young Children: No Employed: No Stable Relationships: No Supportive Family: No Interval History Identifying Information RK HUNT is a 64-year-old M who currently lives in [place] in an apartment alone, has a history of chronic back pain, depression, and anxiety, and was admitted on 02/14/20 10:24 on a 201 voluntary commitment after making suicidal statements to his sister over the phone. Pt was brought to the ED on a 302 warrant by police, but signed in voluntarily for treatment. Reviewed 02/18/20. Chief Complaint "You took me off everything and this is torture". Review of Systems Sleep Information Total Hours of Sleep: 5.5 Sleep Comments: pt on q-15 minute checks Meal Information Percent Meal Consumed - Breakfast: 100 Percent Meal Consumed - Lunch: 100 Percent Meal Consumed - Dinner: 100 Subjective Subjective Patient was seen & assessed and interval progress reviewed with nursing and social work. Patient upset this am as finished neurontin taper. hospitalist recommendations appreciated. Patient's TCA was held as possible contributing factor to muscle spasms. Nausea resolved. He remains overwhelmed by appointments, focussed about their scheduling and that we will withhold necessary information at discharge (phone numbers, addresses). states his restless legs (neuropathy and twitching) keeps him up. Requesting discharge tomorrow early am as desires meeting with CM and to "get on with somewhere that will help me". Has a personal and professional relationship with Dr. Robb who will see patients/give recs later today. Physical Exam Psychiatric Orientation: alert Apperance: appropriately groomed Eye Contact: + fair eye contact ambulating with wheeled walker Speech: normal rate/rhythm/volume of speech Affect: + depressed affect Mood: + anxious mood Thought Process: + perseveration Thought Content: + preoccupation; no delusions Suicidal Thoughts: denies suicidal thoughts Homicidal Thoughts: denies homicidal thoughts Hallucinations: no auditory hallucinations and no visual hallucinations Cognition: attention grossly intact and language grossly intact Insight: + limited insight Judgement: + limited judgement lying comfortably in bed and in NAD listening to mass after breakfast. Vital Signs (Past 24 Hours) Last Vital Signs Temp 36.6 C 02/19/20 06:28 Pulse 96 H 02/19/20 06:29 Resp 18 02/19/20 06:28 BP 95/68 L 02/19/20 06:29 Pulse Ox 98 02/17/20 21:58 Results & Data ([facility]) Laboratory Results Laboratory Results - last 24 hr 02/18/20 02/18/20 02/18/20 14:45 14:45 14:45 WBC 8.72 RBC 4.42 L Hgb 13.8 L Hct 40.7 L MCV 92.1 MCH 31.2 MCHC 33.9 RDW Std Deviation 46.8 H RDW Coeff of Stephen 13.8 Plt Count 304 MPV 9.6 Immature Gran % (Auto) 0.2 Neut % (Auto) 74.8 Lymph % (Auto) 17.9 [place] % (Auto) 5.4 Eos % (Auto) 1.5 Baso % (Auto) 0.2 Neut # (Auto) 6.52 H Lymph # (Auto) 1.56 [place] # (Auto) 0.47 Eos # (Auto) 0.13 Baso # (Auto) 0.02 Immature Gran # (Auto) 0.02 Sodium 136 Potassium 4.6 Chloride 106 Carbon Dioxide 26 Anion Gap 5.0 BUN 27 H Creatinine 0.87 Est Cr Clr Drug Dosing 64.6 Est GFR ( Amer) 105.0 Est GFR (Non-Af Amer) 90.6 BUN/Creatinine Ratio 31.2 H Glucose 122 H Calcium 8.0 L Ionized Calcium Phosphorus 3.9 Magnesium 2.3 Iron 105 Transferrin 274 Transferrin % Sat 27 Ferritin 57.0 Total Bilirubin 0.3 AST 13 L ALT 18 Alkaline Phosphatase 68 Troponin I < 0.015 Total Protein 6.4 Albumin 3.4 Globulin 3.0 Albumin/Globulin Ratio 1.1 Whole Bld Vitamin B1 Pending 25-OH Vitamin D Total 02/19/20 02/19/20 02/19/20 06:01 06:01 06:01 WBC RBC Hgb Hct MCV MCH MCHC RDW Std Deviation RDW Coeff of Stephen Plt Count MPV Immature Gran % (Auto) Neut % (Auto) Lymph % (Auto) [place] % (Auto) Eos % (Auto) Baso % (Auto) Neut # (Auto) Lymph # (Auto) [place] # (Auto) Eos # (Auto) Baso # (Auto) Immature Gran # (Auto) Sodium 137 Potassium 4.6 Chloride 106 Carbon Dioxide 24 Anion Gap 7.0 BUN 21 H Creatinine 0.65 Est Cr Clr Drug Dosing 86.5 Est GFR ( Amer) 118.3 Est GFR (Non-Af Amer) 102.1 BUN/Creatinine Ratio 32.4 H Glucose 104 H Calcium 8.6 Ionized Calcium 1.10 L Phosphorus Magnesium Iron Transferrin Transferrin % Sat Ferritin Total Bilirubin AST ALT Alkaline Phosphatase Troponin I Total Protein Albumin Globulin Albumin/Globulin Ratio Whole Bld Vitamin B1 25-OH Vitamin D Total 28.2 L Current Inpatient Medications Current Inpatient Medications: Current Inpatient Medications Acetaminophen (Acetaminophen 325 Mg Tab) 650 mg PO Q6H PRN PRN Reason: Pain, Moderate Stop: 03/15/20 15:19 Last Admin: 02/19/20 06:28 Dose: 650 mg Documented by: Al Hydrox/Mg Hydrox/Simethicone (Aluminum/Magnesium Susp 30 Ml Udc) 30 ml PO Q6H PRN PRN Reason: GI Upset Stop: 03/19/20 11:33 Last Admin: 02/18/20 11:57 Dose: 30 ml Documented by: Amitriptyline HCl (Amitriptyline Hcl 10 Mg Tab) 10 mg PO TID [facility] Stop: 03/18/20 20:59 Last Admin: 02/18/20 14:08 Dose: Not Given Documented by: Atorvastatin Calcium (Atorvastatin 10 Mg Tab) 10 mg PO DAILY [facility] Stop: 03/16/20 08:59 Last Admin: 02/19/20 08:46 Dose: 10 mg Documented by: Diclofenac Sodium (Diclofenac Sod 1% Gel 100 Gm Tube) 4 gm EXT QID [facility] Stop: 03/15/20 16:59 Last Admin: 02/19/20 10:47 Dose: 4 gm Documented by: Docusate Sodium (Docusate Sodium 100 Mg Cap) 100 mg PO BID PRN PRN Reason: Constipation Stop: 03/15/20 15:17 Hydroxyzine HCl (Hydroxyzine Hcl 25 Mg Tab) 25 mg PO Q6H PRN PRN Reason: Anxiety Stop: 03/16/20 08:14 Last Admin: 02/19/20 06:32 Dose: 25 mg Documented by: Lorazepam (Lorazepam 1 Mg Tab) 1 mg PO ONE PRN; Protocol PRN Reason: EtoH Withdrawal AWSS 6-10 Mirtazapine (Mirtazapine Tab 15 Mg Tab) 30 mg PO HS [facility] Stop: 03/19/20 21:59 Last Admin: 02/18/20 20:48 Dose: 30 mg Documented by: Multivitamins/Minerals (Calcium 600mg + Vit D 400 Iu Tab) 1 tab PO BID [facility] Stop: 03/20/20 08:59 Last Admin: 02/19/20 08:46 Dose: 1 tab Documented by: Ondansetron HCl (Ondansetron 4 Mg Od Tab) 4 mg PO Q6H PRN PRN Reason: nausea and vomiting Stop: 03/15/20 15:19 Last Admin: 02/18/20 09:58 Dose: 4 mg Documented by: Pantoprazole Sodium ([facility]opraz[facility] 40 Mg Tab) [facility] [place]: 03/16/20 08:59 Last Admin: 02/19/20 08:46 Dose: 40 mg Documented by: Propranolol HCl (Propranolol Hcl 10 Mg Tab) 10 mg PO BID [facility] Stop: 03/17/20 10:14 Last Admin: 02/19/20 08:46 Dose: 10 mg Documented by: Senna/Docusate Sodium (Docusate Sodium/Senna 50/8.6mg Tab) 1 tab PO QAM [facility] Stop: 03/17/20 10:29 Last Admin: 02/19/20 08:47 Dose: 1 tab Documented by: Thiamine HCl (Thiamine Hcl 100 Mg Tab) 100 mg PO QAM [facility] Stop: 03/20/20 08:59 Last Admin: 02/19/20 08:47 Dose: 100 mg Documented by: Mental Health & Subst Abuse Tx Psychiatrist Name of Psychiatrist: Margot Zafar, [address] [facility] [address] [place] Psychiatrist's Date of Appointment with Psychiatrist: 02/22/20 Time of Appointment with Psychiatrist: 10:30 Psychiatric Appointment Comment: [facility] will pick you up at 9:30 for appt Therapist Name of Therapist: Psych Rehab (probably through [facility]) Therapist's Therapy Appointment Comment: Shad Ghoshyer is referring and will provide you with specifics Parish Nurse Name of Parish Nurse: Shad Blake- CM- [facility] Phone Number for Parish Nurse: [phone] Date of Appointment with Parish Nurse: 02/20/20 Time of Appointment with Parish Nurse: 2pm, either at home or [facility] Case Management Appointment Comment: [address] [facility], [place] [address] Post Discharge Appointments Primary Care Physician Name Of Family Doctor: Dr. Hernando Morelos/[facility] Date of Appointment with PCP: 02/22/20 Time of Appointment with PCP: 3pm Provider Appointment Comment: [address] [place] [address], [address], [place] [address] Pain Clinic Name of Pain Clinic: [facility], Ryland Castelan Phone Number for Pain Clinic: [phone] Date of Appointment with Pain Clinic: 02/23/20 Time of Appointment with Pain Clinic: 11am Neurologist Name of Neurologist: Dr. Goodwin [facility] Neurology Neurologist's Date of Appointment with Neurologist: 04/18/20 Time of Appointment with Neurologist: 3:45 Contact Information Discharge Discharge Address: [address] [place] [address] [place] [address]
--- NOTE | 2020-02-19 16:45 | Hospitalist Progress Note ---
Date of Service February 19, 2020 Assessment & Plan (1) Muscle spasm of back: His upper back and rib pain appear to be muscle spasm which can be felt on exam. No significant lab abnormalities to fully explain this although he is dehydrated (recommend pushing oral intake of fluids) and a low normal calcium certainly not helping. Low normal calcium (corrected 8.5), will repeat in level in AM with ionized Ca and Vit D, replace with Caltrate Plus BID. Repeat BMP in AM to assess for BUN trend. continue to hold amitriptyline he is ambulating independently around the unit no severe pain best option will be to follow up with pain management issue is that he has taken too much Gabapentin and narcotics in the past he has been desperate for pain control he sits in his apartment all alone and suffers, has fallen at home (2) Nausea: resolved encourage PO intake alright to continue Senakot (3) Chronic pain: Acetaminophen. Could consider Mobic or Celebrex as prior stomach ulcer were 3 years ago, as I understand he was not taking a PPI at that time and also was taking over the recommended maximum of Advil. Avoiding opiates as per behavioral health plan. tapered off of gabapentin for neuropathic pain could consider resuming under direction of pain management explained to him that he will need to sign a contract, he cannot take more medications than prescribed (4) Restless legs: Appears to also have also started after amitriptyline started +/- gabapentin reduced. (5) Protein malnutrition: (6) Hyperlipidemia: (7) Acid reflux: None currently. Continue pantoprazole 40mg PO daily. (8) Alcohol withdrawal: Gabapentin given for this. No current withdrawal. (9) Ambulatory dysfunction: Suspect related to his cervical spinal stenosis given prior notes. Does not appear to be acute. (10) Degenerative cervical spinal stenosis: Known severe central canal stenosis C3-4 C4-5. Initially had planned decompression for this but as far as I am aware this was never performed. Last Dr Álvarez ortho consult was regard to lower back pain and lumbar spine MRI rather than the cervical spine. Recommend outpatient follow up for cervical spinal stenosis with Dr Álvarez - he is a poor surgical candidate at this present time given degree of malnutrition and mental health problems. (11) Ileus: Suspect this is from chronic opiate use. Ok to continue using senna as long as passing flatus, no increasing abdominal pain, nausea or vomiting. will signs off, stable medically for discharge tomorrow recommend follow up with pain management for back pain and neuropathy recommend follow up with PCP in two weeks Admission and Anticipated Discharge Date Admission Date: February 14, 2020 Subjective patient says he has less abdominal pain, no nausea today he frequently requests "something to help him get through the night" wants gabapentin, he is upset that the psychiatric team weaned him off of it I explained that he took 90 pills in 2 weeks instead of 30 days there are concerns about him abusing medications I discussed plan with nurse outreach case manager in the psych office he will go home tomorrow and outpatient pillowcase cleaner will meet him at 2pm in his apartment he has appointments this week set up for pain management clinic as well as outpatient psychiatry he has been talking with his sister frequently back home in [place] the patient overall looks better today compared to earlier in the week he is well nourished, eating really well here Review of Systems Review of Systems: All systems reviewed & are unremarkable except as noted in Subjective Musculoskeletal: + back pain and + neck pain Neurologic: + tingling (bilateral feet) Physical Exam Constitutional: + thin and + frail appearing; no acute distress Eyes: PERRL, conjunctivae normal, anicteric sclerae ENMT: external ear and nose normal, oropharynx normal Neck: trachea midline, no thyromegaly Respiratory: normal respiratory effort, lungs clear to auscultation Cardiovascular: RRR, no murmur, no edema Gastrointestinal (Abdomen): normal bowel sounds, soft, nontender, no hepatosplenomegaly Musculoskeletal: no cyanosis or clubbing, extremities motor strength 5/5 Skin: no rashes, warm and dry Neurologic: CN's II-XI intact bilaterally, deep tendon reflexes 2+ bilaterally, moves all extremities and awake; no focal motor deficits Motor/Sensory: + sensory deficit (feet bilaterally); no tremor Psychiatric: Orientation: alert and oriented x 3 Apperance: appropriately groomed Eye Contact: good eye contact Lymphatic: no cervical or axillary lymphadenopathy Results & Data Results & Data ([facility]) Vital Signs (Past 12 Hours) Vital Signs Temp Pulse Resp BP 02/19/20 06:29 96 H 95/68 L 02/19/20 06:28 36.6 C 88 18 111/75 Laboratory Results Laboratory Results - last 24 hr 02/19/20 02/19/20 02/19/20 06:01 06:01 06:01 Sodium 137 Potassium 4.6 Chloride 106 Carbon Dioxide 24 Anion Gap 7.0 BUN 21 H Creatinine 0.65 Est Cr Clr Drug Dosing 86.5 Est GFR ( Amer) 118.3 Est GFR (Non-Af Amer) 102.1 BUN/Creatinine Ratio 32.4 H Glucose 104 H Calcium 8.6 Ionized Calcium 1.10 L 25-OH Vitamin D Total 28.2 L Medications Administered Current Inpatient Medications Acetaminophen (Acetaminophen 325 Mg Tab) 650 mg PO Q6H PRN PRN Reason: Pain, Moderate Stop: 03/15/20 15:19 Last Admin: 02/19/20 13:28 Dose: 650 mg Documented by: Al Hydrox/Mg Hydrox/Simethicone (Aluminum/Magnesium Susp 30 Ml Udc) 30 ml PO Q6H PRN PRN Reason: GI Upset Stop: 03/19/20 11:33 Last Admin: 02/18/20 11:57 Dose: 30 ml Documented by: Amitriptyline HCl (Amitriptyline Hcl 10 Mg Tab) 10 mg PO TID [facility] Stop: 03/18/20 20:59 Last Admin: 02/18/20 14:08 Dose: Not Given Documented by: Atorvastatin Calcium (Atorvastatin 10 Mg Tab) 10 mg PO DAILY [facility] Stop: 03/16/20 08:59 Last Admin: 02/19/20 08:46 Dose: 10 mg Documented by: Diclofenac Sodium (Diclofenac Sod 1% Gel 100 Gm Tube) 4 gm EXT QID [facility] Stop: 03/15/20 16:59 Last Admin: 02/19/20 13:30 Dose: 4 gm Documented by: Docusate Sodium (Docusate Sodium 100 Mg Cap) 100 mg PO BID PRN PRN Reason: Constipation Stop: 03/15/20 15:17 Hydroxyzine HCl (Hydroxyzine Hcl 25 Mg Tab) 25 mg PO Q6H PRN PRN Reason: Anxiety Stop: 03/16/20 08:14 Last Admin: 02/19/20 06:32 Dose: 25 mg Documented by: Lorazepam (Lorazepam 1 Mg Tab) 1 mg PO ONE PRN; Protocol PRN Reason: EtoH Withdrawal AWSS 6-10 Mirtazapine (Mirtazapine Tab 15 Mg Tab) 30 mg PO HS [facility] Stop: 03/19/20 21:59 Last Admin: 02/18/20 20:48 Dose: 30 mg Documented by: Multivitamins/Minerals (Calcium 600mg + Vit D 400 Iu Tab) 1 tab PO BID [facility] Stop: 03/20/20 08:59 Last Admin: 02/19/20 08:46 Dose: 1 tab Documented by: Ondansetron HCl (Ondansetron 4 Mg Od Tab) 4 mg PO Q6H PRN PRN Reason: nausea and vomiting Stop: 03/15/20 15:19 Last Admin: 02/18/20 09:58 Dose: 4 mg Documented by: Pantoprazole Sodium (Pantoprazole 40 Mg Tab) 40 mg PO QAM [facility] Stop: 03/16/20 08:59 Last Admin: 02/19/20 08:46 Dose: 40 mg Documented by: Propranolol HCl (Propranolol Hcl 10 Mg Tab) 10 mg PO BID [facility] Stop: 03/17/20 10:14 Last Admin: 02/19/20 08:46 Dose: 10 mg Documented by: Senna/Docusate Sodium (Docusate Sodium/Senna 50/8.6mg Tab) 1 tab PO QAM [facility] Stop: 03/17/20 10:29 Last Admin: 02/19/20 08:47 Dose: 1 tab Documented by: Thiamine HCl (Thiamine Hcl 100 Mg Tab) 100 mg PO QAM [facility] Stop: 03/20/20 08:59 Last Admin: 02/19/20 08:47 Dose: 100 mg Documented by: PG Care Time/CCT Total # of Minutes Spent Total Time Spent with Patient: Total time spent is greater than 50% in coordination of care (as documented) at patient's floor/unit and/or counseling patient: Coding Level of Care Code 14099 Subseq Hosp Care Lvl 2 Diagnoses Muscle spasm of back M62.830 Nausea R11.0 Chronic pain G89.29 Restless legs G25.81 Protein malnutrition E46 Hyperlipidemia E78.5 Acid reflux K21.9 Alcohol withdrawal F10.239 Ambulatory dysfunction R26.2 Degenerative cervical spinal stenosis M48.02 Ileus K56.7
[2020-02-19] MEDS: MIRTAZAPINE TAB 15 MG TAB PO SCH (20:36)
[2020-02-20] MEDS: ALUMINUM/MAGNESIUM SUSP 30 ML UDC PO PRN (04:50)
[2020-02-20] MEDS: ACETAMINOPHEN 325 MG TAB PO PRN (05:48)
--- NOTE | 2020-02-20 08:30 | Electrocardiogram Report ---
Test Reason : Blood Pressure : / mmHG Vent. Rate : 105 BPM Atrial Rate : 105 BPM P-R Int : 128 ms QRS Dur : 076 ms QT Int : 312 ms P-R-T Axes : 068 033 064 degrees QTc Int : 412 ms Poor data quality, interpretation may be adversely affected Sinus tachycardia Abnormal ECG When compared with ECG of 11-FEB-2020 21:57, Aberrant conduction is no longer Present Confirmed by Johnnie Gale ([id number]) on 02/20/2020 8:30:17 AM Referred By: REFERRED SELF Confirmed By:Johnnie Gale
[2020-02-20] MEDS: ATORVASTATIN 10 MG TAB PO SCH (08:39)
[2020-02-20] MEDS: THIAMINE HCL 100 MG TAB PO SCH (08:39)
[2020-02-20] MEDS: CALCIUM 600MG + VIT D 400 IU TAB PO SCH (08:39)
[2020-02-20] MEDS: PROPRANOLOL HCL 10 MG TAB PO SCH (08:39)
[2020-02-20] MEDS: DOCUSATE SODIUM/SENNA 50/8.6MG TAB PO SCH (08:39)
[2020-02-20] MEDS: DICLOFENAC SOD 1% GEL 100 GM TUBE EXT SCH (08:39)
[2020-02-20] MEDS: PANTOprazole 40 MG TAB PO SCH (08:39)
[2020-02-20] MEDS ORDERED: DESTROY THIS MEDICATION SCH (10:00)
--- NOTE | 2020-02-20 10:40 | Discharge Summary ---
Date of Service February 20, 2020 History of Present Illness Juan Carlos Fleming II is a 64-year-old male admitted voluntarily for inpatient psychiatric treatment on 02/14/2020 after presenting to the ED on a 302 warrant by police. Pt has reportedly struggled with depression related to chronic pain. He had been speaking with his sister via phone, and reportedly verbalized concerning suicidal statements. The sister called police out of concern. Pt was ultimately willing for treatment, even after being informed that he is not likely to continue to receive his combination of numerous controlled substances. Pt was cooperative with psychiatric assessment. He begins sharing with this provider that "20 years ago I had a resection on my colon. It's been working pretty good, but I still have courses of constipation and diarrhea." He then tells this provider of how he came to be in this area, stating he now has "not a friend, except maybe one person who thought I was worthy to be a friend." Pt states that he had been living in [place] caring for his parents, until their . It was then suggested that the patient move to [place] to be closer to his son and grandchildren. Pt's son resides in [place], [place] but offered for the patient to stay in his cabin in [place]. Pt claims that the cabin was not in good condition, that there was no heat in the winter time and that there were mice, insects, and snakes in the structure. Pt states the Office of Aging became involved and he was moved to an apartment in [facility] in [place]. Pt claims "my son has not visited me since he moved me into that cabin." Pt states "I'll sometimes spend a week or two in my apartment not talking to anyone. He reports he gets meals on wheels, but is unable to eat most of the food due to his poor dentition. Pt states he has a brother and sister who still reside in [place] who are supportive. Pt states he had been talking to his sister via phone prior to his admission, and had shared that he was rather hopeless and wished to as a way to escape his chronic pain. Pt had stated "I told her I was losing my will to live and that I had nothing to look forward to. I wished God would take me away." Pt admits that he does have access to a gun, but denies verbalizing thoughts to use it to harm himself. He states when police arrived at his home following the phone call with his sister, he was asked about the gun but had "forgotten where I even put it, I've never even fired it." Pt believes that police have since confiscated the gun. He admits to chronic pain, poor sleep, decreased appetite, low mood, limited energy, helplessness, and hopelessness. Pt admits to continued wishes. Current recommendations to hold controlled substances until patient's medication regimen can be reviewed with his PCP was discussed. Pt verbalized "but I'm in pain now. I need something now that will take it away." This provider encouraged utilization of mirtazapine, as patient reports SSRIs/SNRIs have contributed to increased anxiety and "feeling like I'm in space" in the past. Pt reports "I'm willing to try anything that will help, but I want it to work now." Pt is unable presently to explain how he ran out of his pain medications too quickly, but does not perceive his medication usage to be abuse. He was again informed that his medication regimen would be reviewed with his PCP, and this provider offered numerous supportive treatment that could be utilized in the interim. Pt denied other questions at this time. Physical Exam Psychiatric Orientation: alert, oriented x 3 and cooperative Apperance: appropriately dressed (casually, wearing t-shirt and scrub pants), appropriately groomed and appeared stated age Eye Contact: good eye contact Motor Behavior: no abnormal motor movements (observed while laying in bed) Speech: normal rate/rhythm/volume of speech (monotone) Affect: + flat affect Mood: + depressed mood (ongoing, associated with chronic pain concerns) and + anxious mood ("some apprehension" but "in good spirits") Thought Process: goal directed thought process and clear/coherent thought process Thought Content: reality based without delusions; no hopelessness and no worthlessness Suicidal Thoughts: denies suicidal thoughts, denies suicidal plan and denies suicidal intent Homicidal Thoughts: denies homicidal thoughts Hallucinations: no auditory hallucinations and no visual hallucinations Cognition: attention grossly intact and language grossly intact Estimated Intelligence: consistent with education level Insight: + fair insight Judgement: + fair judgement Vital Signs (Past 24 Hours) Last Vital Signs Temp 36.6 C 02/20/20 06:40 Pulse 94 H 02/20/20 06:41 Resp 18 02/20/20 06:40 BP 157/72 H 02/20/20 06:41 Pulse Ox 98 02/17/20 21:58 Principal Diagnosis - Chronic Pain - Opioid Dependence - Depression - Generalized Anxiety disorder - Alcohol abuse Psychiatric Data 64-year-old male admitted voluntarily for inpatient psychiatric treatment on 02/14/2020 after presenting to the ED via police after verbalizing thoughts to shoot himself to his sister during a phone call (sister resides in [place]). It was reported that sister called police as she was concerned about the patient's remarks, and patient was ultimately found him at home, intoxicated. There were reports that he admitted having a loaded gun in his home, but could not find it. Police located the firearm and confiscated it, according to patient. Patient reported perception that his depressive and anxiety symptoms were most consistent with chronic pain concerns. Sister, however, provided collateral that the patient has a long history of alcoholism and chronic pain for the last 20 years, but no history of mental health issues until more recently. Due to multiple hospitalizations for falls and ongoing misuse/abuse of prescription opiates, benzodiazepines, stimulants, and gabapentin, and the fact that he had been out of these medications for approximately a week on presentation, they were discontinued after discussion with his PCP. All of his medication bottles were brought in, and all were empty, most of them long before they should have been. A 90-day prescription of gabapentin was found empty ~2 weeks after filling it, and also ran out of methadone, oxycodone, methylphenidate, and alprazolam early. The patient reported adverse effects with previous trials of SSRIs/SNRIs, so a trial of mirtazapine was initiated to target mood and anxiety while hopefully providing some benefit for pain, improved sleep, and appetite stimulation. Buspirone was initially continued for anxiety, but patient reported belief that it had not been helpful and it may be contributing to chronic dizziness, so it was discontinued in favor of a trial of propranolol. PT and OT consults were conducted - with recommendation for continued OT and PT services on discharge. Additional was to increase outpatient support were explored and patient was referred for BCM and outpatient psychiatric treatment in addition to home health services. [facility] services through [facility] were also explored to assist patient in getting to follow-up appointments for both his psychiatric and medical conditions. Pt verbalized understanding of recommendation that routine follow-ups with the pain management clinic offer the best opportunity for effective pain management. Follow-up appointments were scheduled with the patient's PCP, pain management clinic, and neurology. Pt has been denying SI and while he is upset that his numerous controlled prescriptions were discontinued, he is verbalizing willingness to follow-up with outpatient treatment plan. Pt is reporting readiness for discharge and feels he has adequate coping strategies to utilize to assist with his depressive symptoms. Based on review of patient's case and their current presentation, risk of harm to self or others is no longer perceived to be acute. Management of symptoms on an outpatient basis seems the most appropriate and least restrictive setting. Pt seems appropriate for discharge with recommendation for consistent follow-up with outpatient psychiatric prescriber and wrapper caser. Pt verbalized understanding of discharge plan reviewed and is agreeable with plan to be discharged home today, with referral for home health services. Day of Discharge Assessment Patient's case was reviewed and discussed during treatment team. Staff report the patient continues to deny SI, though has been demonstrating some ongoing anxiety. Patient's complex discharge plan was reviewed during treatment team, and also with patient directly prior to discharge. Pt was seen today to assess readiness for discharge. Pt offers kind greeting and states "well, I got back and leg pain. But I'm in good spirits." Pt is optimistic that he will be able to better cope with his pain at home, as "I'll be in my own bed, I'll have more things to do to distract myself." Pt is able to verbalize several coping strategies that he hopes will take his mind off of his level of pain. Pt continues to verbalize frustration with us regarding recommendation to discontinue his numerous controlled prescription medications; but was reminded of significant changes to his outpatient supports and numerous aftercare referrals to address this concern on an outpatient basis. Pt denies SI and is able to verbalize understanding of numerous appointments this week with various supports. He admits to being somewhat "apprehensive", but overall is ready to be discharged. Pt is future oriented in his thinking and is requesting discharge. Pt is hoping to leave this morning so that he can tidy up his place before a visit with his wrapper caser this afternoon. He denied other needs or concerns prior to discharge. ROS: Constitutional: denied Cardiovascular: denied Respiratory: denied Gastrointestinal: reports some abdominal pain Neurological: denied Musculoskeletal: reports back and leg pain Psychiatric: denies symptoms other than stated above Total of at least 10 systems reviewed, pertinent positives as above and in HPI. Transition of Care Transition Of Care Record: was reviewed with the patient Advance Directives Advance Directives Information Provided: Yes Advance Directives: No Mental Health Advance Directive: No Advance Directives on File: No Living Will: No Power of Horizontal Resaw Operator: No Advance Directives Reason:: Declines as Mental Health Visit. Risk Factors Assessment Presenting risk factors reviewed on discharge. Precipitating stressors mitigated by: admission for inpatient psychiatric observation and treatment, appropriate adjustments to medications to target symptoms, attendance of therapeutic treatment groups, development of healthy and effective coping strategies, involvement of outpatient supports, completion of a safety plan, confirmation of guns and weapons being secured, discussion regarding substance abuse and effects on mental health diagnoses, treatment of medical conditions and education on diagnoses. Pt has demonstrated improvement in condition with regard to improvement in mood, resolution of SI, hospitalist consultation to for recommendations, numerous referrals for additional outpatient supports, and significant medication adjustments to allow for a safer and more appropriate medication regimen. At this time, patient is requesting discharge and is no longer considered to be at acute risk of harm to himself or others. Pt will be discharged with recommendation for ongoing outpatient psychiatric treatment. Pt is at increased risk of harm to self or others when compared to the general population and there are several risk factors (chronic pain, gender, age, few family supports, etc) which are not likely to be mitigated in an inpatient treatment setting. Risk of harm to self is no longer perceived to be acute. Male: Yes : Yes Do You Have Access To A Gun?: Yes Health Problems: Yes Substance Use Disorders: Yes Hopelessness: Yes Protective Factors Assessment L[employer] Beliefs: Yes : No (technically , but has been from for years, no contact) Responsible for Young Children: No Employed: No Stable Relationships: No Supportive Family: No Tobacco Cessation at Discharge Tobacco Cessation Medication Prescribed at Discharge: Not Applicable/Non-Smoker Total Time Total Time Spent: Greater Than 30 Minutes Total Time Includes: Examination of the patient, Discharge Planning, Medication Reconciliation and Communication with other providers Discharge Data Consultations 02/18/20 10:43 Consult Hospitalist Routine Hospitalist Consultation Recommendations: (1) Muscle spasm of back: His upper back and rib pain appear to be muscle spasm which can be felt on exam. No significant lab abnormalities to fully explain this although he is dehydrated (recommend pushing oral intake of fluids) and a low normal calcium certainly not helping. Low normal calcium (corrected 8.5), will repeat in level in AM with ionized Ca and Vit D, replace with Caltrate Plus BID. Repeat BMP in AM to assess for BUN trend. continue to hold amitriptyline he is ambulating independently around the unit no severe pain best option will be to follow up with pain management issue is that he has taken too much Gabapentin and narcotics in the past he has been desperate for pain control he sits in his apartment all alone and suffers, has fallen at home (2) Nausea: resolved encourage PO intake alright to continue Senakot (3) Chronic pain: Acetaminophen. Could consider Mobic or Celebrex as prior stomach ulcer were 3 years ago, as I understand he was not taking a PPI at that time and also was taking over the recommended maximum of Advil. Avoiding opiates as per behavioral health plan. tapered off of gabapentin for neuropathic pain could consider resuming under direction of pain management explained to him that he will need to sign a contract, he cannot take more medications than prescribed (4) Restless legs: Appears to also have also started after amitriptyline started +/- gabapentin reduced. (5) Protein malnutrition: (6) Hyperlipidemia: (7) Acid reflux: None currently. Continue pantoprazole 40mg PO daily. (8) Alcohol withdrawal: Gabapentin given for this. No current withdrawal. (9) Ambulatory dysfunction: Suspect related to his cervical spinal stenosis given prior notes. Does not appear to be acute. (10) Degenerative cervical spinal stenosis: Known severe central canal stenosis C3-4 C4-5. Initially had planned decompression for this but as far as I am aware this was never performed. Last Dr Álvarez ortho consult was regard to lower back pain and lumbar spine MRI rather than the cervical spine. Recommend outpatient follow up for cervical spinal stenosis with Dr Álvarez - he is a poor surgical candidate at this present time given degree of malnutrition and mental health problems. (11) Ileus: Suspect this is from chronic opiate use. Ok to continue using senna as long as passing flatus, no increasing abdominal pain, nausea or vomiting. will signs off, stable medically for discharge tomorrow recommend follow up with pain management for back pain and neuropathy recommend follow up with PCP in two weeks Lab Results 02/13/20 02/13/20 02/13/20 18:16 18:16 18:16 WBC 9.84 RBC 4.47 L Hgb 13.8 L Hct 40.4 L MCV 90.4 MCH 30.9 MCHC 34.2 RDW Std Deviation 43.6 RDW Coeff of Stephen 13.3 Plt Count 274 MPV 9.5 Immature Gran % (Auto) 0.2 Neut % (Auto) 75.8 Lymph % (Auto) 16.8 Concho % (Auto) 6.3 Eos % (Auto) 0.7 Baso % (Auto) 0.2 Neut # (Auto) 7.46 H Lymph # (Auto) 1.65 Concho # (Auto) 0.62 H Eos # (Auto) 0.07 Baso # (Auto) 0.02 Immature Gran # (Auto) 0.02 Sodium 133 L Potassium 3.6 Chloride 98 Carbon Dioxide 27 Anion Gap 8.0 BUN 12 Creatinine 0.68 Est Cr Clr Drug Dosing 80.6 Est GFR ( Amer) 116.2 Est GFR (Non-Af Amer) 100.2 BUN/Creatinine Ratio 17.3 Glucose 95 POC Glucose Calcium 8.6 Ionized Calcium Phosphorus Magnesium Iron Transferrin Transferrin % Sat Ferritin Total Bilirubin 0.3 AST 23 ALT 20 Alkaline Phosphatase 80 Troponin I Total Protein 7.4 Albumin 4.0 Globulin 3.4 Albumin/Globulin Ratio 1.2 25-OH Vitamin D Total TSH 0.679 Urine Color Urine Appearance Urine pH Ur Specific Belfry Urine Protein Urine Glucose (UA) Urine Ketones Urine Blood Urine Nitrite Urine Bilirubin Urine Urobilinogen Ur Leukocyte Esterase Salicylates < 1.7 L Urine Opiates Screen Ur Methadone, Qual Acetaminophen < 2 L Urine Barbiturates Ur Phencyclidine (PCP) U Amphetamin/Meth Scrn MDMA (Ecstasy) Screen U Benzodiazepines Scrn Ur Cocaine Metabolite U Marijuana (THC) Screen Ethyl Alcohol mg/dL 02/13/20 02/13/20 02/13/20 18:16 18:30 18:30 WBC RBC Hgb Hct MCV MCH MCHC RDW Std Deviation RDW Coeff of Stephen Plt Count MPV Immature Gran % (Auto) Neut % (Auto) Lymph % (Auto) Concho % (Auto) Eos % (Auto) Baso % (Auto) Neut # (Auto) Lymph # (Auto) Concho # (Auto) Eos # (Auto) Baso # (Auto) Immature Gran # (Auto) Sodium Potassium Chloride Carbon Dioxide Anion Gap BUN Creatinine Est Cr Clr Drug Dosing Est GFR ( Amer) Est GFR (Non-Af Amer) BUN/Creatinine Ratio Glucose POC Glucose Calcium Ionized Calcium Phosphorus Magnesium Iron Transferrin Transferrin % Sat Ferritin Total Bilirubin AST ALT Alkaline Phosphatase Troponin I Total Protein Albumin Globulin Albumin/Globulin Ratio 25-OH Vitamin D Total TSH Urine Color Yellow Urine Appearance Clear Urine pH 6.0 Ur Specific Belfry 1.015 Urine Protein Negative Urine Glucose (UA) Negative Urine Ketones Negative Urine Blood Negative Urine Nitrite Negative Urine Bilirubin Negative Urine Urobilinogen Negative Ur Leukocyte Esterase Negative Salicylates Urine Opiates Screen Neg Ur Methadone, Qual Neg Acetaminophen Urine Barbiturates Neg Ur Phencyclidine (PCP) Neg U Amphetamin/Meth Scrn Neg MDMA (Ecstasy) Screen Neg U Benzodiazepines Scrn Neg Ur Cocaine Metabolite Neg U Marijuana (THC) Screen Neg Ethyl Alcohol mg/dL 112.4 H 02/14/20 02/17/20 02/18/20 17:24 20:15 14:45 WBC 8.72 RBC 4.42 L Hgb 13.8 L Hct 40.7 L MCV 92.1 MCH 31.2 MCHC 33.9 RDW Std Deviation 46.8 H RDW Coeff of Stephen 13.8 Plt Count 304 MPV 9.6 Immature Gran % (Auto) 0.2 Neut % (Auto) 74.8 Lymph % (Auto) 17.9 Concho % (Auto) 5.4 Eos % (Auto) 1.5 Baso % (Auto) 0.2 Neut # (Auto) 6.52 H Lymph # (Auto) 1.56 Concho # (Auto) 0.47 Eos # (Auto) 0.13 Baso # (Auto) 0.02 Immature Gran # (Auto) 0.02 Sodium Potassium Chloride Carbon Dioxide Anion Gap BUN Creatinine Est Cr Clr Drug Dosing Est GFR ( Amer) Est GFR (Non-Af Amer) BUN/Creatinine Ratio Glucose POC Glucose 112 H Calcium Ionized Calcium Phosphorus Magnesium Iron Transferrin Transferrin % Sat Ferritin Total Bilirubin AST ALT Alkaline Phosphatase Troponin I < 0.015 Total Protein Albumin Globulin Albumin/Globulin Ratio 25-OH Vitamin D Total TSH Urine Color Urine Appearance Urine pH Ur Specific Belfry Urine Protein Urine Glucose (UA) Urine Ketones Urine Blood Urine Nitrite Urine Bilirubin Urine Urobilinogen Ur Leukocyte Esterase Salicylates Urine Opiates Screen Ur Methadone, Qual Acetaminophen Urine Barbiturates Ur Phencyclidine (PCP) U Amphetamin/Meth Scrn MDMA (Ecstasy) Screen U Benzodiazepines Scrn Ur Cocaine Metabolite U Marijuana (THC) Screen Ethyl Alcohol mg/dL 02/18/20 02/19/20 02/19/20 14:45 06:01 06:01 WBC RBC Hgb Hct MCV MCH MCHC RDW Std Deviation RDW Coeff of Stephen Plt Count MPV Immature Gran % (Auto) Neut % (Auto) Lymph % (Auto) Concho % (Auto) Eos % (Auto) Baso % (Auto) Neut # (Auto) Lymph # (Auto) Concho # (Auto) Eos # (Auto) Baso # (Auto) Immature Gran # (Auto) Sodium 136 137 Potassium 4.6 4.6 Chloride 106 106 Carbon Dioxide 26 24 Anion Gap 5.0 7.0 BUN 27 H 21 H Creatinine 0.87 0.65 Est Cr Clr Drug Dosing 64.6 86.5 Est GFR ( Amer) 105.0 118.3 Est GFR (Non-Af Amer) 90.6 102.1 BUN/Creatinine Ratio 31.2 H 32.4 H Glucose 122 H 104 H POC Glucose Calcium 8.0 L 8.6 Ionized Calcium Phosphorus 3.9 Magnesium 2.3 Iron 105 Transferrin 274 Transferrin % Sat 27 Ferritin 57.0 Total Bilirubin 0.3 AST 13 L ALT 18 Alkaline Phosphatase 68 Troponin I < 0.015 Total Protein 6.4 Albumin 3.4 Globulin 3.0 Albumin/Globulin Ratio 1.1 25-OH Vitamin D Total 28.2 L TSH Urine Color Urine Appearance Urine pH Ur Specific [place] Urine Protein Urine Glucose (UA) Urine Ketones Urine Blood Urine Nitrite Urine Bilirubin Urine Urobilinogen Ur Leukocyte Esterase Salicylates Urine Opiates Screen Ur Methadone, Qual Acetaminophen Urine Barbiturates Ur Phencyclidine (PCP) U Amphetamin/Meth Scrn MDMA (Ecstasy) Screen U Benzodiazepines Scrn Ur Cocaine Metabolite U Marijuana (THC) Screen Ethyl Alcohol mg/dL 02/19/20 06:01 WBC RBC Hgb Hct MCV MCH MCHC RDW Std Deviation RDW Coeff of Stephen Plt Count MPV Immature Gran % (Auto) Neut % (Auto) Lymph % (Auto) Concho % (Auto) Eos % (Auto) Baso % (Auto) Neut # (Auto) Lymph # (Auto) Concho # (Auto) Eos # (Auto) Baso # (Auto) Immature Gran # (Auto) Sodium Potassium Chloride Carbon Dioxide Anion Gap BUN Creatinine Est Cr Clr Drug Dosing Est GFR ( Amer) Est GFR (Non-Af Amer) BUN/Creatinine Ratio Glucose POC Glucose Calcium Ionized Calcium 1.10 L Phosphorus Magnesium Iron Transferrin Transferrin % Sat Ferritin Total Bilirubin AST ALT Alkaline Phosphatase Troponin I Total Protein Albumin Globulin Albumin/Globulin Ratio 25-OH Vitamin D Total TSH Urine Color Urine Appearance Urine pH Ur Specific [place] Urine Protein Urine Glucose (UA) Urine Ketones Urine Blood Urine Nitrite Urine Bilirubin Urine Urobilinogen Ur Leukocyte Esterase Salicylates Urine Opiates Screen Ur Methadone, Qual Acetaminophen Urine Barbiturates Ur Phencyclidine (PCP) U Amphetamin/Meth Scrn MDMA (Ecstasy) Screen U Benzodiazepines Scrn Ur Cocaine Metabolite U Marijuana (THC) Screen Ethyl Alcohol mg/dL Hospital Course (1) Suicidal ideation: 02/13 - Admitted to a locked inpatient behavioral health unit, on q15 minute safety checks - Encourage medication initiation/adjustments as indicated - Encourage participation in group and recreational therapies - Gather collateral information from outpatient providers - Suggest family meeting to involve outpatient supports in safety planning - Arrange appropriate aftercare 02/14 -Recommend family meeting with sister and/or son, who patient states he called and spoke to today. Although he would like to return to [place], he does not have the finances to do so now. -Referring for increased supports in the community including a blended wrapper caser and skills psych rehab. -Encourage patient to attend and participate in groups, and work on discharge safety plan. -Recommend gun be removed - unclear if police confiscated it or if it is still in his home? 02/15 -Patient states police confiscated his gun. -Ideally patient would have somebody monitoring his medications, keeping them locked and secured and dispensing them to him daily. He claims he has no one who can perform this task. Recommended mobile med management, but he is not eligible due to his insurance. Continue to explore options for support and safety with his medications. Consider an Office of Aging referral. 02/16 -Patient reports that he continues to be concerned about returning home because he is isolated and has a limited number of supports. This afternoon, we spoke with management of the building which the patient lives, and she told us that the biggest concern about the patient is the fact that he is emotionally needy and seeks attention. The patient talks at some length about his disappointment that his son is not stepping up to help him, and he believes that his son might have encouraged him to relocate from [place], [place] to [facility] because he wanted to rent out his unoccupied cabin, and the patient had agreed to pay rent. Although the patient reports that he is not suicidal, he has made statements such as "I do not see how I can go on living in this much pain," and he acknowledges that he has started using alcohol as a way of managing pain. Also, the patient notes that he has been steadily losing weight because he struggles to secure in transport his meals. Our concern is that without the availability of wraparound community resources, which we are actively pursuing and expect to have in place at the beginning of next week, and serious physical harm may come to the patient. (2) Depression: 02/13 - Suggested initiation of mirtazapine 7.5mg tonight with titration as tolerated to target depression and anxiety, as this may provided additional benefit for some pain relief as well as appetite stimulation and sedative effects to assist with sleep. Pt reports difficulty tolerating primary serotonergic agents in the past, so hopefully with find benefit from mirtazapine as an alternative. - Admittedly, patient's depressed mood is likely related to his chronic pain history. Unfortunately patient's previous medication regimen is not ideal for numerous reasons and we will attempt to make adjustments to pursue an effective, but safer option for long-term management of chronic pain concerns. See below. - Encourage participation in group and recreational programming - Assist with development of healthy and effective coping strategies. - Encourage family meeting - possibly with sister in [place], as patient does not have local support 02/14 -Increase mirtazapine to 15 mg at bedtime. -Refer for outpatient mental health treatment ([facility]). 02/15 -Increase mirtazapine to 30 mg at bedtime. -Shad Blake has been assigned as his blended wrapper caser and will come to meet with the patient today on the unit. 02/16 -Shad Blake met with the patient today and is in the process of applying for various medically necessary surfaces that allow the patient to safely return to the community. -Indications are that mirtazapine 30 mg at bedtime may be assisting the patient in his effort to sleep. 02/17 --Reviewed above. Review of chart shows mirtazapine dose still 15 mg, will increase as previously discussed. 02/18 --continue current meds and treatment plan pending additional recs re: pain from hospitalist service. (3) Anxiety: 02/13 - Patient meets criteria for generalized anxiety disorder. Current symptoms also complicated by withdrawal from benzodiazepines, alcohol, gabapentin, and opiates. - Initiating mirtazapine as described above. Continue buspirone TID. - Assist with development of healthy and effective coping strategies 02/14 -Encourage patient to be compliant with buspirone in order to see full effect. He reports not taking it at home as he has not felt it was effective, but it is unclear if poor adherence is contributing to lack of effect. -Strongly encourage patient to participate in groups and work on behavioral techniques for managing anxiety. He has longstanding and persistent anxiety related to his pain, and have advised him of our recommendations after discussion with his PCP that benzodiazepines be avoided given drug drug interactions, significant risk of side effects given his age, recent history of multiple falls and hospitalizations for the same, and ongoing alcohol use. He is unable to clearly state when he last took alprazolam, although 2 drug screens in the ER in the past week were negative for benzodiazepines. To be safe, and to prevent withdrawal and also assist with treatment of acute anxiety, I will place him on the gabapentin taper and AWSS protocol for benzodiazepine and alcohol withdrawal. 02/15 -Ongoing psychoeducation provided regarding MAREN and complicating factors including withdrawal from multiple substances. Patient requires frequent reminders of why controlled substances were stopped and redirection to utilize behavioral techniques for managing anxiety. -He has had some mild tachycardia, so I will start propanolol 10 mg twice daily to target anxiety. -He does not feel buspirone has been helpful, so we will discontinue it. 02/16 -Patient attributes his anxiety to chronic pain. The current anxiety may also be a associated with his long-term use of opioid and sedative medications. -The patient reports that he has not yet noticed any favorable effect from propranolol. --On several occasions the patient is come to the nursing station reported that he is having a panic attack. However, he is not demonstrating tachycardia, shortness of breath, or visual evidence of emotional distress. He does respond to reassurance. 02/17 --Reviewed above. still some tachy/anxiety, hesitate to increase propranolol given BP. (4) Chronic pain: 02/13 - Given patient has been off numerous of his controlled substances for 5-7 days due to running out of medications early, suggest continuing to hold methadone, oxycodone, gabapentin, alprazolam and methylphenidate until we are able to coordinate with his PCP. It appears from outpatient progress notes that the patient was on this medication regimen prior to starting treatment with Dr. Morelos, having presented a note from his PCP in [place] warning that discontinuation of these medications would undoubtedly lead to withdrawal. - While there is legitimate evidence of conditions leading to patient's pain, he has been on a complicated and concerning medication regimen for several years which is even more concerning as his age advances. Until we are able to coordinate patient patient's PCP, will encourage supportive treatment - acetaminophen, ibuprofen, diclofenac gel, warm compresses, stretching, and other strategies. - Pt is admittedly unhappy about current recommendations, numerous explanations provider to the patient regarding serious risks associated with his current regimen as well as concern for misuse/abuse of his medications. 02/14 -Reviewed with his PCP, patient has been on methadone, oxycodone, and methylphenidate for years for chronic pain, but at this time the risks of this medication regimen appear to outweigh the benefits. As he had been off the opiates for almost a week prior to presentation, they were held on admission. No symptoms of opiate withdrawal endorsed today, but will continue to monitor. We will start gabapentin taper as above, and could consider continuing that medication as an outpatient, but I am concerned about his abuse of it as police report that he had completed a 90-day prescription in 2 weeks. The patient is a poor historian with respect to his medication adherence. He may benefit from mobile med management. 02/15 -PT and OT consults ordered for today. Patient may benefit from cane or other assistive devices. -Coordinate with pain clinic and ensure timely follow-up after discharge. He was also referred to neurology and for an EMG and these need to be rescheduled as well. 02/16 -Patient remains drug-seeking and has frequently come to the nursing station to request "something, anything" for pain!" He is specifically seeking opioids and lorazepam. However, the patient is also able to clearly and correctly articulate why we are not supplying these medications. -Patient periodically tells peers that he is experiencing withdrawal from his outpatient medications, but the fact is that he had been out of these medications for a number of days prior to admission and there are no current objective symptoms to indicate actual withdrawal. However, the patient does seem to be craving opioids and benzodiazepines. -We will offer the patient a trial of amitriptyline, beginning with the 25 mg test dose and then 10 mg 3 times daily scheduled for pain management. We are aware of the risks associated with amitriptyline in older adults, but in this case we feel that the anticipated benefit outweighs the present risk. 02/17 --Reviewed. Will consult PT for ambulatory dysfunction as discussed above, israel gilbert pending additional input. Given reported hx of PUD with perforation and/or stricture with pain after meals (worse than his back pain) will consult [facility] hospitalist. No emesis so no amylase or lipase for now. Obviously chronic but acute trigger for his panic/depression that resulted in hospitalization. D/C Ibuprofen as previously caused ulceration. (5) Opioid dependence: 02/13 - Monitor for signs and symptoms of withdrawal. Pt admits to utilization of alcohol when he ran out of his pain medications, but states alcohol was 5 hard ciders over the course of one day. - Will need to coordinate treatment plan with patient's PCP to ensure he is able to be continued on an appropriate medication regimen when discharged. Message left with staff, awaiting return phone call. 02/14 -Reviewed hospital records and PDMP: Patient had been out of oxycodone and methadone for 5 days when he presented to the hospital, and denies current symptoms of opiate withdrawal. Continue to monitor and can use clonidine if needed as well as other supportive treatment. Per PDMP, he is feeling methadone early each month, and just filled a prescription the day prior to hospitalization on 02/13/2020. He also filled methylphenidate prescription on that day, and filled alprazolam #90 tabs on 02/03/2020, and oxycodone #60 tabs on 01/26/2020. (6) Alcohol abuse: 02/14 -patient giving inconsistent reports here about his alcohol use, initially stating he has not drank "in years," but reviewed multiple presentations here in the past year with alcohol intoxication. -AWSS protocol started as above to target alcohol, benzodiazepine, and gabapentin withdrawal. 02/15 -patient's sister reports he has longstanding alcoholism. He has given inconsistent and untrue reports regarding his alcohol use here. Continue to provide education and engage him in motivational interviewing. Recommend peers support groups, such as AA, to target both his addiction issues and assist with increased social supports. 02/16 -the patient continues to minimize his alcohol use. He is not currently showing any symptoms of alcohol withdrawal. (7) Protein malnutrition: 02/14 -dietary met with him today due to low BMI and difficulty eating (edentulous). Continue easy to chew diet and monitor p.o. intake. (8) Constipation: 02/15 -Patient reporting constipation, last bowel movement this morning but was hard. Reports previous benefit from docusate/senna, will order here. Encourage high-fiber diet, adequate water intake, and use of prune juice as needed. Mental Health & Subst Abuse Tx Psychiatrist Name of Psychiatrist: Margot Macknd, [address] [place] [address] Psychiatrist's Date of Appointment with Psychiatrist: 02/22/20 Time of Appointment with Psychiatrist: 10:30 Psychiatric Appointment Comment: [facility] will pick you up at 9:30 for appt Psychiatrist Release of Information: Obtained, Reviewed and Signed Therapist Name of Therapist: [facility]hab ([facility] through [facility]) Therapist's Therapy Appointment Comment: Shad Blake is referring and will provide you with specifics Quarter Section Ironer Name of Quarter Section Ironer: Shad Blake- CM- [facility] Phone Number for Quarter Section Ironer: [phone] Date of Appointment with Quarter Section Ironer: 02/20/20 Time of Appointment with Quarter Section Ironer: at home Case Management Appointment Comment: [address] [facility], [place] [address] Post Discharge Appointments Primary Care Physician Name Of Family Doctor: Dr. Hernando Morelos/[facility] Date of Appointment with PCP: 02/29/20 Time of Appointment with PCP: 11:30am Provider Appointment Comment: [facility] milk pickup driver 10:30-10:45, also Dr. Morelos 03/10 @2:20 Primary Care Release of Information: Obtained, Reviewed and Signed Home Health Services Home Health Services:: Nursing and Home health agency Home Health Agency: [facility] Phone Number of Home Services Agency: [phone] Date of Appointment with Home Agency: 02/24/20 Release of Information for Home Health Services: Obtained, Reviewed and Signed Pain Clinic Name of Pain Clinic: [facility], [place] [facility] Phone Number for Pain Clinic: [phone] Date of Appointment with Pain Clinic: 02/23/20 Time of Appointment with Pain Clinic: 11am Pain Clinic Appointment Comment: [facility] milk pickup driver 9:30, [address] [place], [address] Pain Clinic Release of Information: Obtained, Reviewed and Signed Neurologist Name of Neurologist: Dr. Goodwin [facility] Neurology Neurologist's Date of Appointment with Neurologist: 04/18/20 Time of Appointment with Neurologist: 3:45 Neurology Appointment Comment: No transportation scheduled, possibly call [facility] Smoking Cessation Counseling Tobacco Cessation Medication Prescribed at Discharge: Not Applicable/Non-Smoker Other #1: Name of Aftercare Appointment: [facility] Phone Number of Aftercare Appointment: [phone] Date of Aftercare Appointment: 03/26/20 Time of Aftercare Appointment: 1pm Aftercare Appointment Comment: [facility] up @ 11:30 Release of Information Aftercare Appointment: Obtained, Reviewed and Signed Contact Information Discharge Discharge Address: [address] [place] [address] Discharge Plan Discharge Items Patient Disposition: Home - Home Health Services Reason For Visit: MDD Discharge Diagnosis: - Depression - Generalized Anxiety Disorder - Chronic Pain - Opioid Dependence Condition on Discharge: Fair Activity: Resume your previous activity Non-emergency contact: Primary Care Provider, Neurologist, Psychiatrist, Therapist and Motor Operator Call non-emergency contact if: you have any medication questions, your symptoms worsen and your pain is unusual for you Follow-up/Referrals: Hernando Morelos III, MD [Primary Care Provider] - Diet: Low Fiber Diet Texture: Easy to Chew Addtl Attending Provider Instructions: SPECIAL CARE INSTRUCTIONS: 1. Follow through with your scheduled aftercare appointments. If unable to keep an appointment, please call to reschedule. 2. Take your medication only as prescribed. Medication should not be changed or stopped without the approval of your doctor. In the event of worsening symptoms or concerns about side effects, contact your doctor immediately. 3. Utilize new healthy coping skills, anger management skills, and stress management skills learned during your hospitalization. Journal feelings and process them with a support person. Identify stressors or situations that may result in relapse, deterioration or inappropriate behaviors and develop a plan to deal with those issues. 4. If your coping skills are ineffective and you are in crisis, contact your outpatient providers for direction. If unable to reach your providers, please call the CAN HELP LINE AT or go to the closest Emergency Room. 5. Avoid alcohol and un-prescribed drugs. 6. You have been provided with the Mental Health Advance Directives Pamphlet for your review. AFTERCARE APPOINTMENTS: * Please call your insurance company prior to your scheduled appointment to confirm your aftercare providers are covered. Take your insurance information to your appointments. * You have been referred for home health services - please follow-up as indicated to allow these services to be established. WHO TO CALL AND WHEN: Medical Emergencies: For questions or emergencies related to your hospital stay, please contact the Inpatient Behavioral Health Unit at [phone]. A triage clinician is on-call 19/01 for the Behavioral Health Unit for emergencies At any time you feel your situation is an emergency, you may also call 911 immediately. Your Discharge Instructions noted above were prepared by provider Leonila Trevizo PA-C. Pending Studies at Discharge: No Stand-Alone Forms: My [facility], Smoking Cessation, Suicide Prevention Resources Medications and DC Order Prescriptions: New propranolol 10 mg Tablet 10 mg PO BID 30 Days Qty: 60 RF: 0 mirtazapine 30 mg tablet 30 mg PO HS 30 Days Qty: 30 RF: 0 sennosides-docusate sodium [Senokot-S] 8.6-50 mg Tablet 1 tab PO QAM 30 Days Qty: 30 RF: 0 thiamine HCl (vitamin B1) [Vitamin B-1] 100 mg Tablet 100 mg PO QAM 30 Days Qty: 30 RF: 0 Caltrate 600-D Plus Minerals 600 mg calcium- 800 unit-50 mg Tablet 1 tab PO BID 30 Days Qty: 60 RF: 0 Continued docusate sodium [Colace] 100 mg capsule 100 mg PO BID PRN (Reason: Constipation) RF: 0 pantoprazole 40 mg tablet,delayed release (DR/EC) 40 mg PO QAM Qty: 30 RF: 11 atorvastatin 10 mg tablet 10 mg PO DAILY Qty: 30 RF: 11 ondansetron 4 mg tablet,disintegrating 4 mg PO Q6H PRN (Reason: nausea and vomiting) Qty: 12 RF: 0 acetaminophen [Mapap (acetaminophen)] 325 mg Tablet 650 mg PO Q6H PRN (Reason: Pain, Moderate) Qty: 15 RF: 0 diclofenac sodium [Voltaren] 1 % Gel 4 g EXT QID Qty: 100 RF: 0 Discontinued Narcan 4 mg/actuation spray,non-aerosol 1 sprays INTNAS Q2M Qty: 2 RF: 5 gabapentin 300 mg capsule 300 mg PO TID Qty: 90 RF: 5 alprazolam 0.5 mg tablet 0.5 mg PO TID PRN (Reason: anxiety) Qty: 90 RF: 0 methadone 10 mg tablet 10 mg PO Q8H PRN (Reason: Pain, Severe) Qty: 90 RF: 0 methylphenidate HCl 10 mg tablet 10 mg PO TID Qty: 84 RF: 0 buspirone 15 mg tablet 15 mg PO TID Qty: 90 RF: 5 oxycodone 10 mg tablet 10 mg PO BID RF: 0 sennosides-docusate sodium [Senna-S] 8.6-50 mg tablet 1 tab PO BID PRN (Reason: Constipation) RF: 0 Discharge Orders: Discharge Order (Routine); Ordered 02/20/20 Ordered By: Leonila Trevizo Admission Data Admit Date/Time: 02/14/20 10:24 Attending Provider: Chantal Burton Admit Provider: Chantal Burton Primary Care Provider: Hernando Morelos III Other Providers: Shannan Lopez ; Filippo Osborne ; Jethro Robb Other Interventions: PSY Interdisciplinary Discharge Planning Last Done: 02/20/20 09:52 Coding Level of Care Code 83767 D/C day mgmt > 30 min Diagnoses Suicidal ideation R45.851 Depression F32.0 Active/Remission status: currently active Depression Type: major depressive disorder Major depression episode severity: mild Major depression recurrence: single episode Anxiety F41.9 Chronic pain G89.4 Chronic pain type: chronic pain syndrome Opioid dependence F11.20 Alcohol abuse F10.10 Protein malnutrition E46 Constipation K59.00
== END 2020-02-20 11:16 | disposition home health service (06) | DRG 885 ==
LOC: ED 17:45 → 3S 02-14 10:24

== ENCOUNTER 2020-03-15 11:58 | Inpatient (IN) ==
[2020-03-15] MEDS ORDERED: SODIUM CHLORIDE 0.9% 1000ML 2,000 ML IV ONE (12:33)
[2020-03-15] MEDS ORDERED: ACETAMINOPHEN 500 MG TAB PO STA (12:33)
[2020-03-15] MEDS ORDERED: KETOROLAC TROMETHAMINE 15 MG/ML VIAL IV ONE (12:33)
--- NOTE | 2020-03-15 12:42 | Emergency Department Note ---
Impression & Plan Recurrent falls, Alcohol abuse, Fracture of transverse process of lumbar vertebra, Fracture of rib, Low bicarbonate ED Provider Note NAME: RK HUNT II AGE: 64 SEX: M : 1955 ARRIVES VIA: Ambulance INFORMANT: Patient ED PROVIDER(S): Jesus Stone DO CHIEF COMPLAINT: Fall HPI: Patient is a 64-year-old male with recent admission to [facility] [address]. and discharge where they recommended stopping all his narcotics including methadone and oxycodone as he was abusing his medications. He presented on the for a fall with multiple complaints and that is what brings him in again today. He notes he fell around 7 and 10:00 today. He notes that he was walking on the hardwood floors which are slippery with his socks and he fell onto his right side. He denies hitting his head. He denies any head or neck pain. He complains of severe right elbow pain and right hip pain as well as right chest wall pain. Denies any nausea vomiting or diarrhea. No dysuria urgency or frequency. He denies any alcohol use in over a week. He denies any drug other drug use. ROS: See above HPI for pertinent positives & negatives. A total of 10 systems reviewed and were otherwise negative. PAST MEDICAL HISTORY:See Below PAST SURGICAL HISTORY:See Below FAMILY HISTORY:See Below SOCIAL HISTORY:See Below HOME MEDICATIONS:See Below ALLERGIES:See Below VITALS:See Below PHYSICAL EXAMINATION: GENERAL: alert, well appearing, well nourished, no distress, non-toxic HEAD: normal cephalic, atraumatic EYE EXAM: normal conjunctiva, PERRL and EOM's grossly intact OROPHARYNX: no exudate, no erythema, lips, buccal mucosa, and tongue normal and mucous membranes are moist NECK: supple, no nuchal rigidity, no adenopathy, non-tender CHEST: stable to compression anteriorly and posteriorly with tenderness over the right axilla/chest wall pain with bruising LUNGS: clear to auscultation. Normal chest wall mechanics HEART: no murmurs, S1 normal and S2 normal ABDOMEN: abdomen soft, non-tender, normo-active bowel sounds, no masses, no rebound or guarding. PELVIS: stable to compression anteriorly and posteriorly BACK: Back is symmetrical on inspection and there is no deformity, no midline tenderness, no CVA tenderness. Bruising over the right scapula and posterior humerus UPPER EXTREMITIES: Full range of motion of bilateral shoulders, elbows, wrist with radial pulse 2 out of 4. He has a significant amount of bruising over the right elbow and moderate tenderness on palpation. LOWER EXTREMITIES: Full active and passive range of motion of bilateral hips knees and ankles with tenderness over the right hip and bruising. No tenderness throughout the remainder of the femur or tib-fib. NEURO EXAM: Normal sensorium, cranial nerves II-XII grossly intact, normal speech, no gross weakness of arms, no gross weakness of legs. GCS: 15. MEDICAL DECISION MAKING: Patient is a 64-year-old male who presents the ER for his second visit in the past 48 hours. He has multiple bruises present and complains of diffuse pain. IV was established blood work was obtained. Labs show a mild leukocytosis of 13,000. No significant anemia. BMP with mild hyponatremia. CO2 was low at 20. LFTs and bilirubin was unremarkable. Lipase is normal. UA with a small amount hematuria. CK was slightly elevated at 1200. Patient was given IV fluids. Tox was positive for methadone and his alcohol was positive. CT of his head, cervical spine, chest abdomen pelvis was performed and showed 3 rib fractures along with his previous TP fractures. Patient is intentionally misleading and deceitful as he denies any alcohol use but his alcohol is clearly detectable. Feel uncomfortable sending him home at this point I do believe that he likely needs rehab with these recurrent falls. Patient was updated and discussed with hospitalist for further evaluation. Triage Nursing notes reviewed. Prior medical records reviewed Vital Signs: reviewed and remarkable for tachy, Resp rate. Differential diagnosis: Differential diagnoses include major intracranial, cervical, spinal, thoracic, abdominal, pelvic and neurologic injury. Fracture, contusion, sprain, strain, laceration, abrasions included as well. ER treatment provided: See below Diagnostics interpreted by me: ECG: none Cardiac Monitoring: An order was placed for continuous cardiac monitoring. The monitor shows a rate of 135 with sinus rhythm. Laboratory studies: As stated above and show below. Imaging studies: CT trauma scan shows fractures as discussed above X-rays of his elbow showed no acute fractures Consultation(s): Discussed with hospitalist for further evaluation ED COURSE: Procedures: none Critical Care: None Past Med/Surg History Medical History (Updated 03/15/20 @ 18:36 by Jesus Stone DO) Abdominal pain Acidosis, lactic Alcohol intoxication Anxiety Arthritis Bilateral lower extremity edema Bilateral lower leg cellulitis Chronic, continuous use of opioids Constipation Degenerative cervical spinal stenosis Diarrhea Generalized abdominal pain Hearing difficulty Hyperlipidemia Left rib fracture Lumbar radicular pain Nausea Neuropathy Pneumonia Sepsis Spinal stenosis of lumbar region Stomach ulcer Surgical History History of hernia repair History of oral surgery Family History Mother Anxiety Depression Cardiac disorder Hypertension Diabetes Mesothelioma Father Mesothelioma Diabetes Brother Diabetes Other No significant family history Social History Smoking Status: Former smoker Tobacco Type: Cigarettes Smoking End Date: 25 yrs ago; Second Hand Exposure: No; Hx Alcohol Use: Yes Alcohol type: hard liquor Hx Substance Use: Yes Last Used Substance: Hours (ago) Last Used Substance Other:: 6 weeks ago per pt Substance Use Type Other:: methadone Preferred Language: [place] Communication Ability: Effective Visual Impairment: Limited Hearing Ability: Normal Infrastructure Architect Required: No Beliefs That Will Affect Care: Orthodoxy Orthodoxy Beliefs: sabianism pt requesting to see garage 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 made primary RN aware marital status: Legally Current Living Situation: Alone Current Living Situation Comment: apartment Other Information That Helps Us Care for You: No Feels Safe at Home: Yes Safety Concerns: Feels Safe At This Time Allergies Allergies Allergy/AdvReac Type Severity Reaction Status Date / Time erythromycin base Allergy Intermediate Rash Verified 03/15/20 13:52 Home Meds Home Medications Medication Instructions Recorded Confirmed docusate sodium 100 mg capsule 100 mg PO BID PRN 01/02/20 03/15/20 Previous Rx's Medication Instructions Recorded acetaminophen [Mapap 650 mg PO Q6H PRN #15 tab 03/03/19 (acetaminophen)] diclofenac sodium [Voltaren] 4 g EXT QID #100 gm 05/27/19 pantoprazole 40 mg tablet,delayed 40 mg PO QAM #30 tab 09/02/19 release atorvastatin 10 mg tablet 10 mg PO DAILY #30 tab 01/09/20 ondansetron 4 mg PO Q6H PRN #12 tab 02/12/20 [id number] 1 tab PO BID 30 Days #60 tab 02/20/20 [Caltrate 600-D Plus Minerals] mirtazapine 30 mg PO HS 30 Days #30 tab 02/20/20 propranolol 10 mg PO BID 30 Days #60 tab 02/20/20 sennosides-docusate sodium 1 tab PO QAM 30 Days #30 tab 02/20/20 [Senokot-S] thiamine HCl (vitamin B1) [Vitamin 100 mg PO QAM 30 Days #30 tab 02/20/20 B-1] Results & Data (ED) Vital Signs Vital Signs - 24 hr 03/15/20 12:02 03/15/20 12:04 03/15/20 12:05 Temperature 36.8 C Temperature Source Oral Pulse Rate 129 H 128 H 127 H Pulse Rate from SpO2 Sensor 129 H 127 H Pulse Rhythm Regular Pulse Strength Normal Respiratory Rate 34 H 24 32 H Respiratory Effort / Characteristics Non-Labored Spontaneous Respiratory Depth Normal Respiratory Pattern Regular Blood Pressure 116/94 116/94 Blood Pressure Mean 98 101 Blood Pressure Position Lying Pulse Oximetry 99 99 100 Oxygen Delivery Method Room Air Sepsis Recent Fever Within 48 Hours No Sepsis New/Unexplained Change in Mental Status N/A Sepsis Action Taken by Nursing No Action Required 03/15/20 12:15 03/15/20 12:30 03/15/20 12:31 Temperature Temperature Source Pulse Rate 130 H 130 H 132 H Pulse Rate from SpO2 Sensor 132 H 130 H 131 H Pulse Rhythm Pulse Strength Respiratory Rate 24 42 H 30 H Respiratory Effort / Characteristics Respiratory Depth Respiratory Pattern Blood Pressure 137/92 Blood Pressure Mean 104 Blood Pressure Position Pulse Oximetry 98 97 98 Oxygen Delivery Method Sepsis Recent Fever Within 48 Hours Sepsis New/Unexplained Change in Mental Status Sepsis Action Taken by Nursing 03/15/20 12:33 03/15/20 12:45 03/15/20 13:00 Temperature Temperature Source Pulse Rate 124 H 121 H Pulse Rate from SpO2 Sensor 124 H 121 H Pulse Rhythm Pulse Strength Respiratory Rate 29 H 26 H Respiratory Effort / Characteristics Respiratory Depth Respiratory Pattern Blood Pressure 139/94 Blood Pressure Mean 97 Blood Pressure Position Pulse Oximetry 98 99 99 Oxygen Delivery Method Room Air Sepsis Recent Fever Within 48 Hours Sepsis New/Unexplained Change in Mental Status Sepsis Action Taken by Nursing 03/15/20 13:40 03/15/20 13:41 03/15/20 14:00 Temperature Temperature Source Pulse Rate 112 H 112 H Pulse Rate from SpO2 Sensor 112 H 112 H Pulse Rhythm Pulse Strength Respiratory Rate 35 H 24 Respiratory Effort / Characteristics Respiratory Depth Respiratory Pattern Blood Pressure 132/77 143/102 H Blood Pressure Mean 79 113 Blood Pressure Position Pulse Oximetry 99 99 Oxygen Delivery Method Sepsis Recent Fever Within 48 Hours Sepsis New/Unexplained Change in Mental Status Sepsis Action Taken by Nursing 03/15/20 14:15 03/15/20 14:30 03/15/20 14:31 Temperature Temperature Source Pulse Rate 120 H 117 H 114 H Pulse Rate from SpO2 Sensor 120 H 127 H 112 H Pulse Rhythm Pulse Strength Respiratory Rate 25 H 21 25 H Respiratory Effort / Characteristics Respiratory Depth Respiratory Pattern Blood Pressure Blood Pressure Mean Blood Pressure Position Pulse Oximetry 98 96 100 Oxygen Delivery Method Sepsis Recent Fever Within 48 Hours Sepsis New/Unexplained Change in Mental Status Sepsis Action Taken by Nursing 03/15/20 14:45 03/15/20 15:00 03/15/20 15:02 Temperature Temperature Source Pulse Rate 113 H 116 H 114 H Pulse Rate from SpO2 Sensor 113 H 117 H 114 H Pulse Rhythm Pulse Strength Respiratory Rate 27 H 22 28 H Respiratory Effort / Characteristics Respiratory Depth Respiratory Pattern Blood Pressure 142/92 H Blood Pressure Mean 96 Blood Pressure Position Pulse Oximetry 98 100 98 Oxygen Delivery Method Sepsis Recent Fever Within 48 Hours Sepsis New/Unexplained Change in Mental Status Sepsis Action Taken by Nursing 03/15/20 15:15 03/15/20 15:30 Temperature Temperature Source Pulse Rate 118 H 115 H Pulse Rate from SpO2 Sensor 120 H 115 H Pulse Rhythm Pulse Strength Respiratory Rate 22 27 H Respiratory Effort / Characteristics Respiratory Depth Respiratory Pattern Blood Pressure 139/93 Blood Pressure Mean 109 Blood Pressure Position Pulse Oximetry 98 97 Oxygen Delivery Method Sepsis Recent Fever Within 48 Hours Sepsis New/Unexplained Change in Mental Status Sepsis Action Taken by Nursing Laboratory Data Result diagrams: 03/15/20 12:47 03/15/20 12:47 Lab Results 03/15/20 03/15/20 03/15/20 Range/Units 12:47 12:47 12:49 WBC 13.67 H (4.8-10.8) K/uL RBC 4.66 L (4.7-6.1) M/uL Hgb 14.7 (14.0-18.0) g/dL POC Hgb 15.0 (14.0-18.0) g/dl Hct 40.8 L (42-52) % POC Hct 44 (42-52) % MCV 87.6 (80-100) fL MCH 31.5 (25-34) pg MCHC 36.0 (32-36) g/dL RDW Std Deviation 43.8 (36.4-46.3) fL RDW Coeff of Stephen 13.7 (11.5-14.5) % Plt Count 413 H (130-400) K/uL MPV 9.7 (7.4-10.4) fL Immature Gran % (Auto) 0.2 % Neut % (Auto) 84.5 % Lymph % (Auto) 7.2 % [place] % (Auto) 8.0 % Eos % (Auto) 0.0 % Baso % (Auto) 0.1 % Neut # (Auto) 11.53 H (1.4-6.5) K/uL Lymph # (Auto) 0.99 L (1.2-3.4) K/uL [place] # (Auto) 1.10 H (0.11-0.59) K/uL Eos # (Auto) 0.00 (0-0.5) K/uL Baso # (Auto) 0.02 (0-0.2) K/uL Immature Gran # (Auto) 0.03 H (0.00-0.02) K/uL POC Sodium 133 L (135-144) mmol/L Sodium 133 L (136-145) mmol/L POC Potassium 4.7 (3.3-5.0) mmol/L Potassium 4.5 (3.5-5.1) mmol/L POC Chloride 98 L (101-112) mmol/L Chloride 99 (98-107) mmol/L Carbon Dioxide 20 L (21-32) mmol/L POC Total CO2 19 L (24-31) mmol/L Anion Gap 14.0 H (3-11) POC Anion Gap 21.0 (16-25) mmol/L POC BUN 32 H (7-18) mg/dl BUN 34 H (7-18) mg/dl Creatinine 0.85 (0.6-1.4) mg/dl POC Creatinine 0.7 (0.6-1.3) mg/dl Est Cr Clr Drug Dosing 68.3 ml/min Est GFR ( Amer) 106.0 Est GFR (Non-Af Amer) 91.4 BUN/Creatinine Ratio 40.4 H (10-20) Glucose 127 H (70-99) mg/dl POC Glucose (other) 130 H (70-99) mg/dl Calcium 8.9 (8.5-10.1) mg/dl POC Ioniz Calcium Tom 1.06 L (1.12-1.32) mmol/l Total Bilirubin 0.8 (0.2-1) mg/dl AST 61 H (15-37) U/L ALT 31 (12-78) U/L Alkaline Phosphatase 135 H (45-117) U/L Total Creatine Kinase 1212 H (39-308) U/L Total Protein 7.6 (6.4-8.2) gm/dl Albumin 3.8 (3.4-5.0) gm/dl Globulin 3.8 (2.5-4.0) gm/dl Albumin/Globulin Ratio 1.0 (0.9-2) Lipase 202 (73-393) U/L Urine Color Urine Appearance (Clear) Urine pH (4.5-7.5) Ur Specific [place] (1.000-1.030) Urine Protein (Negative) Urine Glucose (UA) (Negative) Urine Ketones (Negative) Urine Blood (Negative) Urine Nitrite (Negative) Urine Bilirubin (Negative) Urine Urobilinogen (Negative) Ur Leukocyte Esterase (Negative) Urine WBC (Auto) (0-5) /hpf Urine RBC (Auto) (0-4) /hpf U Hyaline Cast (Auto) (0-5) /lpf U Epithel Cells (Auto) (0-5) /lpf Urine Bacteria (Auto) (Negative) Urine Opiates Screen (Neg) Ur Methadone, Qual (Neg) Urine Barbiturates (Neg) Ur Phencyclidine (PCP) (Neg) U Amphetamin/Meth Scrn (Neg) MDMA (Ecstasy) Screen (Neg) U Benzodiazepines Scrn (Neg) Ur Cocaine Metabolite (Neg) U Marijuana (THC) Screen (Neg) Ethyl Alcohol mg/dL (0-3) mg/dl 03/15/20 03/15/20 03/15/20 Range/Units 12:50 12:50 13:13 WBC (4.8-10.8) K/uL RBC (4.7-6.1) M/uL Hgb (14.0-18.0) g/dL POC Hgb (14.0-18.0) g/dl Hct (42-52) % POC Hct (42-52) % MCV (80-100) fL MCH (25-34) pg MCHC (32-36) g/dL RDW Std Deviation (36.4-46.3) fL RDW Coeff of Stephen (11.5-14.5) % Plt Count (130-400) K/uL MPV (7.4-10.4) fL Immature Gran % (Auto) % Neut % (Auto) % Lymph % (Auto) % [place] % (Auto) % Eos % (Auto) % Baso % (Auto) % Neut # (Auto) (1.4-6.5) K/uL Lymph # (Auto) (1.2-3.4) K/uL [place] # (Auto) (0.11-0.59) K/uL Eos # (Auto) (0-0.5) K/uL Baso # (Auto) (0-0.2) K/uL Immature Gran # (Auto) (0.00-0.02) K/uL POC Sodium (135-144) mmol/L Sodium (136-145) mmol/L POC Potassium (3.3-5.0) mmol/L Potassium (3.5-5.1) mmol/L POC Chloride (101-112) mmol/L Chloride (98-107) mmol/L Carbon Dioxide (21-32) mmol/L POC Total CO2 (24-31) mmol/L Anion Gap (3-11) POC Anion Gap (16-25) mmol/L POC BUN (7-18) mg/dl BUN (7-18) mg/dl Creatinine (0.6-1.4) mg/dl POC Creatinine (0.6-1.3) mg/dl Est Cr Clr Drug Dosing ml/min Est GFR ( Amer) Est GFR (Non-Af Amer) BUN/Creatinine Ratio (10-20) Glucose (70-99) mg/dl POC Glucose (other) (70-99) mg/dl Calcium (8.5-10.1) mg/dl POC Ioniz Calcium Tom (1.12-1.32) mmol/l Total Bilirubin (0.2-1) mg/dl AST (15-37) U/L ALT (12-78) U/L Alkaline Phosphatase (45-117) U/L Total Creatine Kinase (39-308) U/L Total Protein (6.4-8.2) gm/dl Albumin (3.4-5.0) gm/dl Globulin (2.5-4.0) gm/dl Albumin/Globulin Ratio (0.9-2) Lipase (73-393) U/L Urine Color Yellow Urine Appearance Clear (Clear) Urine pH 5.0 (4.5-7.5) Ur Specific [place] 1.039 H (1.000-1.030) Urine Protein 1+ H (Negative) Urine Glucose (UA) Negative (Negative) Urine Ketones 1+ H (Negative) Urine Blood 1+ H (Negative) Urine Nitrite Negative (Negative) Urine Bilirubin Negative (Negative) Urine Urobilinogen Negative (Negative) Ur Leukocyte Esterase Negative (Negative) Urine WBC (Auto) 1-5 (0-5) /hpf Urine RBC (Auto) 0-4 (0-4) /hpf U Hyaline Cast (Auto) 5-10 H (0-5) /lpf U Epithel Cells (Auto) 10-20 H (0-5) /lpf Urine Bacteria (Auto) Negative (Negative) Urine Opiates Screen Neg (Neg) Ur Methadone, Qual Pos H (Neg) Urine Barbiturates Neg (Neg) Ur Phencyclidine (PCP) Neg (Neg) U Amphetamin/Meth Scrn Neg (Neg) MDMA (Ecstasy) Screen Neg (Neg) U Benzodiazepines Scrn Neg (Neg) Ur Cocaine Metabolite Neg (Neg) U Marijuana (THC) Screen Neg (Neg) Ethyl Alcohol mg/dL 23.9 H (0-3) mg/dl Administered Medications Diclofenac Sodium (Diclofenac Sod 1% Gel 100 Gm Tube) 4 gm EXT QID GREGORY Stop: 04/14/20 17:10 Last Admin: 03/15/20 18:17 Dose: 4 gm Documented by: [id number] Sodium Chloride (Nss 1000ml) 1,000 mls @ 100 mls/hr IV .Q10H GREGORY Stop: 04/14/20 17:10 Last Admin: 03/15/20 17:21 Dose: 100 mls/hr Documented by: [id number] Oxycodone HCl (Oxycodone Hcl Ir 5 Mg Tab (Immediate Release)) 5 mg PO Q4 PRN PRN Reason: Pain Stop: 03/29/20 17:10 Last Admin: 03/15/20 17:23 Dose: 5 mg Documented by: [id number] Discontinued Medications Acetaminophen (Acetaminophen 500 Mg Tab) 1,000 mg PO NOW STA Stop: 03/15/20 12:34 Last Admin: 03/15/20 12:39 Dose: 1,000 mg Documented by: [id number] Hydromorphone HCl (Hydromorphone Inj 0.5 Mg/0.5 Ml Syr) 0.5 mg IV NOW STA Stop: 03/15/20 15:33 Last Admin: 03/15/20 15:50 Dose: 0.5 mg Documented by: [id number] Sodium Chloride (Nss 1000ml) 2,000 mls @ 999 mls/hr IV .Q2H1M ONE Stop: 03/15/20 14:33 Last Infusion: 03/15/20 17:40 Dose: 0 mls/hr Documented by: [id number] Admin: 03/15/20 12:45 Dose: 999 mls/hr Documented by: [id number] Ioversol (Ioversol 100ml) 93 ml IV ONCE ONE Stop: 03/15/20 13:28 Last Admin: 03/15/20 13:27 Dose: 93 ml Documented by: [id number] Ketorolac Tromethamine (Ketorolac Tromethamine 15 Mg/Ml Vial) 15 mg IV NOW ONE Stop: 03/15/20 12:34 Last Admin: 03/15/20 12:45 Dose: 15 mg Documented by: [id number] Morphine Sulfate (Morphine Sulfate 4 Mg/Ml 1 Ml Carp\Vial) 4 mg IV NOW STA Stop: 03/15/20 14:12 Last Admin: 03/15/20 14:20 Dose: 4 mg Documented by: [id number] Discharge Plan Visit Data Chief Complaint: Rib Injury/Pain Stated Complaint: fall / rib&back pain ED Provider: Jesus Stone Discharge Problem: Recurrent falls, Alcohol abuse, Fracture of transverse process of lumbar vertebra, Fracture of rib, Low bicarbonate Patient Disposition: Admitted As Inpatient Discharge Instructions Interventions: ED Discharge Assessment Last Done: 03/15/20 16:30 Discharge Problem: Fracture of transverse process of lumbar vertebra Qualifiers: Encounter type: initial encounter Fracture type: closed Qualified Code(s): S32.009A - Unspecified fracture of unspecified lumbar vertebra, initial encounter for closed fracture Fracture of rib Qualifiers: Encounter type: initial encounter Rib fracture type: multiple ribs Fracture type: closed Laterality: unspecified laterality Qualified Code(s): S22.49XA - Mu ltiple fractures of ribs, unspecified side, initial encounter for closed fracture
[2020-03-15 12:59] LABS: Hematocrit (blood only) 40.8 % (42-52); Hemoglobin 14.7 g/dL (14.0-18.0); Mean Corpuscular Volume 87.6 fL (80-100); Red Blood Count 4.66 M/uL (4.7-6.1); White Blood Count 13.67 K/uL (4.8-10.8)
[2020-03-15 13:00] LABS: Basophils # (auto) 0.02 K/uL (0-0.2); Basophils % (auto) 0.1 %; Immature Granulocytes # (auto) 0.03 K/uL (0.00-0.02); Immature Granulocytes % (auto) 0.2 %; Lymphocytes # (auto) 0.99 K/uL (1.2-3.4); Lymphocytes % (auto) 7.2 %; Mean Corpuscular Hemoglobin 31.5 pg (25-34); Mean Platelet Volume 9.7 fL (7.4-10.4); Neutrophils # (auto) 11.53 K/uL (1.4-6.5); Neutrophils % (auto) 84.5 %; Platelet Count 413 K/uL (130-400); RDW Coefficient of Variation 13.7 % (11.5-14.5); RDW Standard Deviation 43.8 fL (36.4-46.3)
[2020-03-15 13:01] LABS: iSTAT Creatinine 0.7 mg/dl (0.6-1.3); iSTAT Ionized Calcium 1.06 mmol/l (1.12-1.32); iSTAT Potassium 4.7 mmol/L (3.3-5.0)
[2020-03-15 13:10] LABS: Appearance Urine Clear (Clear); Bacteria Urine Automated Negative (Negative); Bilirubin Urine Negative (Negative); Blood Urine 1+ (Negative); Color Urine Yellow; Glucose Urine UA Negative (Negative); Ketones Urine 1+ (Negative); Leukocyte Esterase Urine Negative (Negative); Nitrite Urine Negative (Negative); Protein Urine 1+ (Negative); RBC Urine Automated 0-4 /hpf (0-4); Specific Gravity Urine 1.039 (1.000-1.030); Urobilinogen Urine Negative (Negative)
[2020-03-15 13:17] LABS: Albumin Level 3.8 gm/dl (3.4-5.0); BUN Creatinine Ratio 40.4 (10-20); Calcium 8.9 mg/dl (8.5-10.1); Creatinine Clr Calc Pharmacy 68.3 ml/min; Est GFR (Non-African American) 91.4; Potassium 4.5 mmol/L (3.5-5.1)
--- NOTE | 2020-03-15 13:17 | XRay Report ---
RIGHT ELBOW 3 VIEWS HISTORY: r elbow pain COMPARISON: None. FINDINGS: There is no fracture or dislocation. Cartilage space narrowing and marginal osteophytes at the elbow joint consistent with moderate osteoarthritis. The bones are slightly osteopenic. An 11 mm intra-articular loose body within the anterior joint space. No definite elbow effusions. No radiopaqu e foreign bodies. IMPRESSION: No definite fracture or dislocation within the right elbow. ACT 112: Negative or not required by law. Electronically signed by: Cash Santoro M.D. 03/15/2020 1:15 PM
[2020-03-15] MEDS ORDERED: IOVERSOL 100ml IV ONE (13:27)
[2020-03-15 13:31] LABS: Bilirubin,Total 0.8 mg/dl (0.2-1); Globulin 3.8 gm/dl (2.5-4.0); Total Protein 7.6 gm/dl (6.4-8.2)
[2020-03-15 13:39] LABS: Amphetamines+Metham, Urine Neg (Neg); Barbiturates, Urine Neg (Neg); Benzodiazepine, Urine Neg (Neg); Cocaine, Urine Neg (Neg); MDMA (Ecstacy), Urine Neg (Neg); Methadone, Urine Pos (Neg); Opiate, Urine Neg (Neg); Phencyclidine, Urine Neg (Neg)
--- NOTE | 2020-03-15 13:41 | CT Scan Report ---
CT head/brain wo con CLINICAL HISTORY: Head pain status post trauma. COMPARISON STUDY: 03/13/2020 TECHNIQUE: Axial CT of the brain is performed from the vertex to the skull base. IV contrast was not administered for this examination. A dose lowering technique was utilized adhering to the principles of ALARA. CT DOSE: FINDINGS: No intra or extra-axial mass lesions are visualized. There is no CT evidence of acute cortical infarc tion. There is no evidence of midline shift. There is no acute hemorrhage. No calvarial fractures ar e visualized. There is no evidence of pathologic ventricular dilatation. There is no evidence of acute sinusitis IMPRESSION: No acute intracranial findings ACT 112: Negative or not required by law. Electronically signed by: Roly Cabrera M.D. 03/15/2020 1:40 PM
--- NOTE | 2020-03-15 13:43 | CT Scan Report ---
CT OF THE CERVICAL SPINE CLINICAL HISTORY: Neck pain status post trauma COMPARISON STUDY: 03/13/2020 CT DOSE: TECHNIQUE: CT scan of the cervical spine was performed from the skull base to the thoracic inlet. Mahsa ges are reviewed in the axial, sagittal, and coronal planes. IV contrast was not administered for thi s examination. A dose lowering technique was utilized adhering to the principles of ALARA. FINDINGS: The visualized portions of the lung apices reveal no evidence of pneumothorax. The prevertebral soft tissues are normal. No fractures or traumatic subluxations are visualized. There are advanced multilevel degenerative changes with multilevel spinal and foraminal stenosis. IMPRESSION: No evidence of acute fracture or traumatic subluxation. ACT 112: Negative or not required by law. Electronically signed by: Roly Cabrera M.D. 03/15/2020 1:42 PM
--- NOTE | 2020-03-15 13:52 | CT Scan Report ---
CT OF THE ABDOMEN AND PELVIS WITH CONTRAST CLINICAL HISTORY: Right hip and flank pain status post fall. COMPARISON STUDY: CT of the abdomen and pelvis March 13, 2022 TECHNIQUE: Following IV administration of 93 mL of Optiray-320, axial images of the abdomen and pelvi s were obtained from the lung bases to the proximal femurs. Images were reviewed in the axial, sagitt al, and coronal planes. IV contrast was administered without complication. Automated exposure contro l was utilized for the study. A dose lowering technique was utilized adhering to the principles of A INEZ. FINDINGS: Please note that the chest CT will be reported separately. Imaged portions of the lower steve st demonstrate several acute lateral right sided rib fractures. These are better depicted on the [place] t CT. The fractures of the left transverse processes of L2 and L3 are unchanged since exam March 13, 2020. There is no acute pelvic or hip fracture. There is no evidence for traumatic injury to the liver, spleen, adrenal glands or kidneys. Elevation of the left hemidiaphragm is unchanged. Caliber a nd wall thickness of small and large bowel are normal. There is no free fluid. There is no lymphadeno jesi. There are no suspicious osseous lesions. A 1.2 cm cyst arising from the lower pole of the righ t kidney is noted. There is no biliary or pancreatic ductal dilatation. IMPRESSION: 1. No acute traumatic findings within the abdomen or pelvis. 2. Several acute nondisplaced lateral right-sided rib fractures which are better depicted on the [place] t CT. Please see that report for further description. 3. Redemonstration of fractures of the left transverse process of L2 and L[facility] ACT 112: Negative or not required by law. Electronically signed by: Mode Real M.D. 03/15/2020 1:51 PM
--- NOTE | 2020-03-15 13:52 | CT Scan Report ---
CHEST CT WITH CONTRAST CT DOSE: 2031.84 mGy.cm HISTORY: Acute chest trauma with right-sided rib pain status post recent fall fall r sided rib pain TECHNIQUE: Multiaxial CT images of the chest were performed following the IV administration of 93 cc of Optiray 320. A dose lowering technique was utilized adhering to the principles of ALARA. COMPARISON: CT abdomen and pelvis of same day, chest CT 03/13/2020 FINDINGS: Unremarkable thyroid. No adenopathy. Heart is upper limits of normal in size. Coronary artery calcifi cations. No thoracic aortic aneurysm. Unchanged moderate left hemidiaphragmatic elevation. No pneumot horax or pleural effusion. Left lung base subsegmental atelectasis. Respiratory motion artifact limit s evaluation of the lungs. No suspicious pulmonary nodules or masses. Central airways are patent. Sof t tissues are unremarkable. Degenerative changes of the shoulders and spine. Subacute nondisplaced fr actures are noted involving the lateral right sixth, seventh and eighth ribs. These ribs were subopti sid evaluated on comparison secondary to motion artifact however in retrospect were also likely pre sent on that exam. Mild sclerosis of the anterior left third and fourth ribs suggests healed remote f racture deformities. Sigmoidal thoracolumbar scoliosis. IMPRESSION: 1. Subtle acute nondisplaced fractures involve the lateral right sixth, seventh and eighth ribs. No d isplaced fracture or pneumothorax. 2. Chronic left hemidiaphragm elevation with mild left lung base atelectasis. ACT 112: Negative or not required by law. Electronically signed by: Mikhail Spaulding M.D. 03/15/2020 1:51 PM
[2020-03-15] MEDS ORDERED: MoRPHine SULFATE 4 MG/ML 1 ML CARP\\VIAL IV STA (14:11)
[2020-03-15] MEDS ORDERED: HYDROmorphone INJ 0.5 MG/0.5 ML SYR IV STA (15:32)
--- NOTE | 2020-03-15 16:12 | History & Physical Report ---
Date of Service March 15, 2020 Assessment & Plan (1) Multiple fractures of ribs, right side, initial encounter for closed fracture: right sided rib fractures, due to fall at home, causing pain use Oxycodone 5mg q4 PRN and Dilaudid IV for breakthrough brusing over hips and right elbow and right shoulder, no fractures of other bones on imaging will need PT/OT (2) Rhabdomyolysis: mild with CK up to 1000's, crush injury from fall, multiple bruises Cr is intact but he is clinical dry will give NSS at 100cc/hr repeat BMP and CK in the morning (3) Dehydration: dry oral membranes, slightly tachycardic received 2 liters of NSS in the ED BP preserved, no further boluses needed will give NSS at 100cc/hr (4) Fall: two separate falls at home, landed on hardwood floor suspect he was drinking as his alcohol level was up slightly he admits to not using his rolling walker as he should be he has a scooter that he uses when he leaves his apartment will get PT/OT evaluations unsure he is safe to be at home, will consult CM (5) Chronic pain: was weaned off of narcotics in the recent past now with legitimate pain with rib fractures he tested positive for Methadone, when asked he says he has not taken any for a month (6) Alcohol abuse: positive alcohol level in the morning likely drinking every day but denies he has depression, lives alone with no visitors (7) Depression: (8) Spinal stenosis of lumbar region: History of Present Illness Chief Complaint: I fell, I hurt so bad Primary Care Provider: Hernando Morelos MD 64 yo male with history of spinal stenosis, anxiety and depression, chronic pain with suspected opiate abuse, alcohol use who was brought to the ED today after he fell twice in his apartment. He said that he fell at is apartment when he was walking to the bathroom. He says he slipped on the hardwood floor and landed on his right side. He was able to slowly get up but then he fell again and the second fall caused him to lay on the floor for 10 minutes. He struck the floor, he denies hitting his head, denies hitting the sink or toilet. He did not lose consciousness. He admits that he should have been using his rolling walker. He denied drinking alcohol but whe I asked him why his alcohol level was positive he says he drank last night. He has not felt sick or light headed. He has been leaving his apartment to get food, he uses his motorized scooter. He says he is lonely in his apartment, he has no one to talk to. He has been trying to eat well but it is difficult for him to eat and difficult to get food because he is weak and in pain. He says that all his joints hurt really badly, including his hips and knees. He shows me dark bruises on his hips and knees. In the ED he was found to have fractured ribs on the right side. No other fractures seen. He was given NSS x 2 liters and Morphine 4mg. He said the morphine did not help his pain. Allergies Allergy/AdvReac Type Severity Reaction Status Date / Time erythromycin base Allergy Intermediate Rash Verified 03/15/20 13:52 Home Medications Home Medications Medication Instructions Recorded Confirmed Type acetaminophen [Mapap 650 mg PO Q6H PRN #15 tab 03/03/19 03/15/20 Rx (acetaminophen)] diclofenac sodium [Voltaren] 4 g EXT QID #100 gm 05/27/19 03/15/20 Rx pantoprazole 40 mg tablet,delayed 40 mg PO QAM #30 tab 09/02/19 03/15/20 Rx release docusate sodium 100 mg capsule 100 mg PO BID PRN 01/02/20 03/15/20 History atorvastatin 10 mg tablet 10 mg PO DAILY #30 tab 01/09/20 03/15/20 Rx ondansetron 4 mg PO Q6H PRN #12 tab 02/12/20 03/15/20 Rx [id number] 1 tab PO BID 30 Days #60 tab 02/20/20 03/15/20 Rx [Caltrate 600-D Plus Minerals] mirtazapine 30 mg PO HS 30 Days #30 tab 02/20/20 03/15/20 Rx propranolol 10 mg PO BID 30 Days #60 tab 02/20/20 03/15/20 Rx sennosides-docusate sodium 1 tab PO QAM 30 Days #30 tab 02/20/20 03/15/20 Rx [Senokot-S] thiamine HCl (vitamin B1) [Vitamin 100 mg PO QAM 30 Days #30 tab 02/20/20 03/15/20 Rx B-1] Past Med/Surg History Medical History Abdominal pain Acidosis, lactic Alcohol intoxication Anxiety Arthritis Bilateral lower extremity edema Bilateral lower leg cellulitis Chronic, continuous use of opioids Constipation Degenerative cervical spinal stenosis Diarrhea Generalized abdominal pain Hearing difficulty Hyperlipidemia Left rib fracture Lumbar radicular pain Nausea Neuropathy Pneumonia Sepsis Spinal stenosis of lumbar region Stomach ulcer Surgical History History of hernia repair History of oral surgery Family History Mother Anxiety Depression Cardiac disorder Hypertension Diabetes Mesothelioma Father Mesothelioma Diabetes Brother Diabetes Other No significant family history Social History Smoking Status: Former smoker Tobacco Type: Cigarettes Smoking End Date: 25 yrs ago; Second Hand Exposure: No; Hx Alcohol Use: Yes Alcohol type: hard liquor Hx Substance Use: Yes Last Used Substance: Hours (ago) Last Used Substance Other:: 6 weeks ago per pt Substance Use Type Other:: methadone Preferred Language: Finnish Communication Ability: Effective Visual Impairment: Limited Hearing Ability: Normal Catalyst Impregnator Required: No Beliefs That Will Affect Care: Confucianist Confucianist Beliefs: sabianist pt requesting to see cook seafood while in hospital. made primary RN aware marital status: Legally Current Living Situation: Alone Current Living Situation Comment: apartment Other Information That Helps Us Care for You: No Feels Safe at Home: Yes Safety Concerns: Feels Safe At This Time Review of Systems Review of Systems: All systems reviewed & are unremarkable except as noted in Subjective Constitutional: + weakness; no fever, no chills and no sweats Eyes: no diplopia Ear, Nose, Mouth, Throat: + dental pain; no ear pain Respiratory: no cough, no dyspnea and no wheezing Cardiovascular: + chest pain (right sided); no palpitations, no syncope and no edema Gastrointestinal: no abdominal pain, no nausea, no vomiting, no constipation and no diarrhea/loose stools Musculoskeletal: + back pain, + radicular pain, + joint pain, + limited range of motion, + myalgia and + muscle weakness Neurologic: + unsteadiness, + falls and + generalized weakness; no paresthesia, no tremor(s), no syncope, no headache(s) and no confusion Psychiatric: + depression, + hopelessness and + substance abuse (methadone, alcohol) Physical Exam Constitutional: well developed, + thin, + frail appearing and + disheveled; + uncomfortable Eyes: PERRL, conjunctivae normal, anicteric sclerae ENMT: Mouth: + dry oral mucous membranes and + edentulous Neck: trachea midline, no thyromegaly Respiratory: normal respiratory effort, lungs clear to auscultation Cardiovascular: Rate/Rhythm: regular rhythm and + tachycardic Heart Sounds: normal S1 and normal S2; no murmur Vessels: no JVD Extremities: normal capillary refill; no edema Chest (Breasts): Chest: + abnormal inspection of chest (right sided bruising, tender) Gastrointestinal (Abdomen): normal bowel sounds, soft, nontender, no hepatosplenomegaly Musculoskeletal: Head/Neck/Chest: normocephalic, head atraumatic and neck supple Spine: + limited thoraco-lumbar ROM Extremities: + abnormal strength; + extremities abnormal to inspection (bruises over right elbow/shoulder, bilateral hips/knees), no cyanosis, no clubbing and no petechiae Skin: no rashes and no wound Trauma: + contusion (hips, knees, elbow, shoulder, chest wall) Neurologic: patellar DTR's 2+ bilat, sensation intact and PERRL, EOMI, accommodation nl, no face palsy, no dysarthria Psychiatric: Orientation: alert and oriented x 3 Affect: + tearful affect Lymphatic: no cervical or axillary lymphadenopathy Results & Data Results & Data ([facility]) Vital Signs (Past 12 Hours) Vital Signs Temp Pulse Resp BP Pulse Ox 03/15/20 15:30 115 H 27 H 139/93 97 03/15/20 15:15 118 H 22 98 03/15/20 15:02 114 H 28 H 142/92 H 98 03/15/20 15:00 116 H 22 100 03/15/20 14:45 113 H 27 H 98 03/15/20 14:31 114 H 25 H 100 03/15/20 14:30 117 H 21 96 03/15/20 14:15 120 H 25 H 98 03/15/20 14:00 112 H 24 143/102 H 99 03/15/20 13:41 112 H 35 H 99 03/15/20 13:40 132/77 03/15/20 13:00 121 H 26 H 139/94 99 03/15/20 12:45 124 H 29 H 99 03/15/20 12:33 98 03/15/20 12:31 132 H 30 H 137/92 98 03/15/20 12:30 130 H 42 H 97 03/15/20 12:15 130 H 24 98 03/15/20 12:05 127 H 32 H 100 03/15/20 12:04 36.8 C 128 H 24 116/94 99 03/15/20 12:02 129 H 34 H 116/94 99 Laboratory Results Laboratory Results - last 24 hr 03/15/20 03/15/20 03/15/20 12:47 12:47 12:49 WBC 13.67 H RBC 4.66 L Hgb 14.7 POC Hgb 15.0 Hct 40.8 L POC Hct 44 MCV 87.6 MCH 31.5 MCHC 36.0 RDW Std Deviation 43.8 RDW Coeff of Stephen 13.7 Plt Count 413 H MPV 9.7 Immature Gran % (Auto) 0.2 Neut % (Auto) 84.5 Lymph % (Auto) 7.2 [place] % (Auto) 8.0 Eos % (Auto) 0.0 Baso % (Auto) 0.1 Neut # (Auto) 11.53 H Lymph # (Auto) 0.99 L [place] # (Auto) 1.10 H Eos # (Auto) 0.00 Baso # (Auto) 0.02 Immature Gran # (Auto) 0.03 H POC Sodium 133 L Sodium 133 L POC Potassium 4.7 Potassium 4.5 POC Chloride 98 L Chloride 99 Carbon Dioxide 20 L POC Total CO2 19 L Anion Gap 14.0 H POC Anion Gap 21.0 POC BUN 32 H BUN 34 H Creatinine 0.85 POC Creatinine 0.7 Est Cr Clr Drug Dosing 68.3 Est GFR ( Amer) 106.0 Est GFR (Non-Af Amer) 91.4 BUN/Creatinine Ratio 40.4 H Glucose 127 H POC Glucose (other) 130 H Calcium 8.9 POC Ioniz Calcium Tom 1.06 L Total Bilirubin 0.8 AST 61 H ALT 31 Alkaline Phosphatase 135 H Total Creatine Kinase 1212 H Total Protein 7.6 Albumin 3.8 Globulin 3.8 Albumin/Globulin Ratio 1.0 Lipase 202 Urine Color Urine Appearance Urine pH Ur Specific [place] Urine Protein Urine Glucose (UA) Urine Ketones Urine Blood Urine Nitrite Urine Bilirubin Urine Urobilinogen Ur Leukocyte Esterase Urine WBC (Auto) Urine RBC (Auto) U Hyaline Cast (Auto) U Epithel Cells (Auto) Urine Bacteria (Auto) Urine Opiates Screen Ur Methadone, Qual U Methadone Metabolites Ur Methadone Confirm Urine Barbiturates Ur Phencyclidine (PCP) U Amphetamin/Meth Scrn MDMA (Ecstasy) Screen U Benzodiazepines Scrn Ur Cocaine Metabolite U Marijuana (THC) Screen Drug Screen Comment Ethyl Alcohol mg/dL 03/15/20 03/15/20 03/15/20 12:50 12:50 12:50 WBC RBC Hgb POC Hgb Hct POC Hct MCV MCH MCHC RDW Std Deviation RDW Coeff of Stephen Plt Count MPV Immature Gran % (Auto) Neut % (Auto) Lymph % (Auto) [place] % (Auto) Eos % (Auto) Baso % (Auto) Neut # (Auto) Lymph # (Auto) [place] # (Auto) Eos # (Auto) Baso # (Auto) Immature Gran # (Auto) POC Sodium Sodium POC Potassium Potassium POC Chloride Chloride Carbon Dioxide POC Total CO2 Anion Gap POC Anion Gap POC BUN BUN Creatinine POC Creatinine Est Cr Clr Drug Dosing Est GFR ( Amer) Est GFR (Non-Af Amer) BUN/Creatinine Ratio Glucose POC Glucose (other) Calcium POC Ioniz Calcium Tom Total Bilirubin AST ALT Alkaline Phosphatase Total Creatine Kinase Total Protein Albumin Globulin Albumin/Globulin Ratio Lipase Urine Color Yellow Urine Appearance Clear Urine pH 5.0 Ur Specific [place] 1.039 H Urine Protein 1+ H Urine Glucose (UA) Negative Urine Ketones 1+ H Urine Blood 1+ H Urine Nitrite Negative Urine Bilirubin Negative Urine Urobilinogen Negative Ur Leukocyte Esterase Negative Urine WBC (Auto) 1-5 Urine RBC (Auto) 0-4 U Hyaline Cast (Auto) 5-10 H U Epithel Cells (Auto) 10-20 H Urine Bacteria (Auto) Negative Urine Opiates Screen Neg Ur Methadone, Qual Pos H U Methadone Metabolites Pending Ur Methadone Confirm Pending Urine Barbiturates Neg Ur Phencyclidine (PCP) Neg U Amphetamin/Meth Scrn Neg MDMA (Ecstasy) Screen Neg U Benzodiazepines Scrn Neg Ur Cocaine Metabolite Neg U Marijuana (THC) Screen Neg Drug Screen Comment Pending Ethyl Alcohol mg/dL 03/15/20 13:13 WBC RBC Hgb POC Hgb Hct POC Hct MCV MCH MCHC RDW Std Deviation RDW Coeff of Stephen Plt Count MPV Immature Gran % (Auto) Neut % (Auto) Lymph % (Auto) [place] % (Auto) Eos % (Auto) Baso % (Auto) Neut # (Auto) Lymph # (Auto) [place] # (Auto) Eos # (Auto) Baso # (Auto) Immature Gran # (Auto) POC Sodium Sodium POC Potassium Potassium POC Chloride Chloride Carbon Dioxide POC Total CO2 Anion Gap POC Anion Gap POC BUN BUN Creatinine POC Creatinine Est Cr Clr Drug Dosing Est GFR ( Amer) Est GFR (Non-Af Amer) BUN/Creatinine Ratio Glucose POC Glucose (other) Calcium POC Ioniz Calcium Tom Total Bilirubin AST ALT Alkaline Phosphatase Total Creatine Kinase Total Protein Albumin Globulin Albumin/Globulin Ratio Lipase Urine Color Urine Appearance Urine pH Ur Specific [place] Urine Protein Urine Glucose (UA) Urine Ketones Urine Blood Urine Nitrite Urine Bilirubin Urine Urobilinogen Ur Leukocyte Esterase Urine WBC (Auto) Urine RBC (Auto) U Hyaline Cast (Auto) U Epithel Cells (Auto) Urine Bacteria (Auto) Urine Opiates Screen Ur Methadone, Qual U Methadone Metabolites Ur Methadone Confirm Urine Barbiturates Ur Phencyclidine (PCP) U Amphetamin/Meth Scrn MDMA (Ecstasy) Screen U Benzodiazepines Scrn Ur Cocaine Metabolite U Marijuana (THC) Screen Drug Screen Comment Ethyl Alcohol mg/dL 23.[address] chest IMPRESSION: 1. Subtle acute nondisplaced fractures involve the lateral right sixth, seventh and eighth ribs. No displaced fracture or pneumothorax. 2. Chronic left hemidiaphragm elevation with mild left lung base atelectasis. CT abdomen/pelvis IMPRESSION: 1. No acute traumatic findings within the abdomen or pelvis. 2. Several acute nondisplaced lateral right-sided rib fractures which are better depicted on the chest CT. Please see that report for further description. 3. Redemonstration of fractures of the left transverse process of L2 and L3 as shown on CT of March 13, 2020. CT head no acute intracranial findings [place] x-ray no fracture or dislocation of right [place] Code Status & VTE Plan VTE Prophylaxis Plan VTE Prophylaxis will be ordered: Yes PG Care Time/CCT Total # of Minutes Spent Total Time Spent with Patient: Total time spent is greater than 50% in coordination of care (as documented) at patient's floor/unit and/or counseling patient: Coding Level of Care Code 56147 Initial Inpt Care Lvl 3 Diagnoses Multiple fractures of ribs, right side, initial encounter for closed fracture S22.41XA Rhabdomyolysis M62.82 Dehydration E86.0 Fall W19.XXXA Encounter type: initial encounter Chronic pain G89.29 Chronic pain type: other chronic pain Alcohol abuse F10.10 Depression F32.0 Active/Remission status: currently active Depression Type: major depressive disorder Major depression episode severity: mild Major depression recurrence: single episode Spinal stenosis of lumbar region M48.061 (1) Chronic pain Chronic pain type: other chronic pain Qualified Code(s): G89.29 - Other chronic pain (2) Depression Active/Remission status: currently active Depression Type: major depressive disorder Major depression episode severity: mild Major depression recurrence: single episode Qualified Code(s): F32.0 - Major depressive disorder, single episode, mild (3) Fall Encounter type: initial encounter Qualified Code(s): W19.XXXA - Unspecified fall, initial encounter
[2020-03-15] MEDS ORDERED: ACETAMINOPHEN 325 MG TAB PO PRN (17:11)
[2020-03-15] MEDS ORDERED: ONDANSETRON INJ 2 MG/ML 2 ML VIAL IV PRN (17:11)
[2020-03-15] MEDS: SODIUM CHLORIDE 0.9% 1000ML 1,000 ML IV SCH (17:21)
[2020-03-15] MEDS: OXYCODONE HCL IR 5 MG TAB (IMMEDIATE RELEASE) PO PRN ×2 (17:23→21:33)
[2020-03-15] MEDS: DICLOFENAC SOD 1% GEL 100 GM TUBE EXT SCH ×2 (18:17→20:05)
[2020-03-15] MEDS: HYDROmorphone INJ 0.5 MG/0.5 ML SYR IV PRN ×2 (19:12→23:26)
[2020-03-15] MEDS: ENOXAPARIN INJ 30 MG/0.3 ML SYR SQ SCH (20:05)
[2020-03-15] MEDS: PROPRANOLOL HCL 10 MG TAB PO SCH (20:05)
[2020-03-15] MEDS: MIRTAZAPINE TAB 15 MG TAB PO SCH (20:05)
[2020-03-16] MEDS: SODIUM CHLORIDE 0.9% 1000ML 1,000 ML IV SCH ×3 (03:12→22:02)
[2020-03-16] MEDS: OXYCODONE HCL IR 5 MG TAB (IMMEDIATE RELEASE) PO PRN ×4 (03:47→22:01)
[2020-03-16] MEDS: HYDROmorphone INJ 0.5 MG/0.5 ML SYR IV PRN ×5 (03:48→20:02)
[2020-03-16 06:31] LABS: Hemoglobin 12.5 g/dL (14.0-18.0); Mean Corpuscular Hemoglobin 30.3 pg (25-34); Mean Corpuscular Hgb Conc 33.8 g/dL (32-36); Mean Corpuscular Volume 89.8 fL (80-100); Mean Platelet Volume 10.1 fL (7.4-10.4); Platelet Count 245 K/uL (130-400); RDW Coefficient of Variation 13.9 % (11.5-14.5); RDW Standard Deviation 45.6 fL (36.4-46.3); Red Blood Count 4.12 M/uL (4.7-6.1); White Blood Count 10.41 K/uL (4.8-10.8)
[2020-03-16 06:59] LABS: BUN Creatinine Ratio 22.5 (10-20); Creatinine Clr Calc Pharmacy 84.7 ml/min; Est GFR (African American) 116.9; Est GFR (Non-African American) 100.8; Magnesium 2.3 mg/dl (1.8-2.4); Potassium 3.6 mmol/L (3.5-5.1)
[2020-03-16] MEDS ORDERED: KETOROLAC TROMETHAMINE 15 MG/ML VIAL IV ONE (08:00)
[2020-03-16] MEDS: THIAMINE HCL 100 MG TAB PO SCH (08:30)
[2020-03-16] MEDS: DICLOFENAC SOD 1% GEL 100 GM TUBE EXT SCH ×4 (08:30→20:05)
[2020-03-16] MEDS: PROPRANOLOL HCL 10 MG TAB PO SCH ×2 (08:30→20:05)
[2020-03-16] MEDS: ATORVASTATIN 10 MG TAB PO SCH (09:59)
[2020-03-16] MEDS: LIDOCAINE 5% 1 PATCH TD SCH ×2 (09:59→12:06)
[2020-03-16] MEDS: PANTOprazole 40 MG TAB PO SCH (10:00)
[2020-03-16] MEDS: DOCUSATE SODIUM/SENNA 50/8.6MG TAB PO SCH (10:00)
--- NOTE | 2020-03-16 16:09 | Hospitalist Progress Note ---
Date of Service March 16, 2020 Assessment & Plan (1) Multiple fractures of ribs, right side, initial encounter for closed fracture: right sided rib fractures, due to fall at home, causing pain use Oxycodone 5mg q4 PRN and Dilaudid IV for breakthrough add Lidoderm patch bruising over hips and right elbow and right shoulder, no fractures of other bones on imaging will need PT/OT evaluations his sister in [place] has concerns about his safety living alone most likely that he is drinking alcohol, possibly getting Methadone difficult social situation, CM is consulted (2) Rhabdomyolysis: mild with CK up to 1000's on admission, crush injury from fall, multiple bruises Cr is intact but he is clinical dry will continue NSS at 100cc/hr until tomorrow morning CK down to 600's repeat labs in the morning (3) Dehydration: dry oral membranes, slightly tachycardic on admission received 2 liters of NSS in the ED BP preserved, no further boluses needed will give NSS at 100cc/hr today until tomorrow morning, then stop (4) Fall: two separate falls at home, landed on hardwood floor suspect he was drinking as his alcohol level was up slightly he admits to not using his rolling walker as he should be he has a scooter that he uses when he leaves his apartment will get PT/OT evaluations unsure he is safe to be at home, will consult CM his sister in [place] is also worried about his safety plan to keep over weekend to determine safe plan for discharge (5) Chronic pain: was weaned off of narcotics in the recent past now with legitimate pain with rib fractures he tested positive for Methadone, when asked he says he has not taken any for a month (6) Alcohol abuse: positive alcohol level in the morning likely drinking every day but denies he has depression, lives alone with no visitors (7) Depression: (8) Spinal stenosis of lumbar region: Admission and Anticipated Discharge Date Admission Date: March 15, 2020 Subjective patient feeling better, less pain today, he is asking for his pain medication on the hour wanted the Dilaudid and oxycodone given together, explained he cannot have this asked him about Methadone in his urine, he said that he was getting Methadone from provider in [place] prior to moving here 1.5 years ago he said that Dr. Morelos agreed to prescribe it to him, explained that Dr. Morelos normally does not prescribe that will need to check the [place] prescribing database he is eating well, drinking well Lidoderm patch helped his right ribs, requesting one for his shoulder will get PT/OT to see him his sister called from [place], she has concerns about his safety living alone difficult because he has no one here in [place] unsure if he could go to personal care, currently lives in [facility] apartments on labs this CBC and BMP are normal, CK down to 600's Review of Systems Review of Systems: All systems reviewed & are unremarkable except as noted in Subjective Physical Exam Constitutional: well developed, + thin, + frail appearing and + disheveled Eyes: PERRL, conjunctivae normal, anicteric sclerae ENMT: Mouth: + edentulous Neck: trachea midline, no thyromegaly Respiratory: normal respiratory effort, lungs clear to auscultation Cardiovascular: Rate/Rhythm: regular rhythm and + tachycardic Heart Sounds: normal S1 and normal S2; no murmur Vessels: no JVD Extremities: normal capillary refill; no edema Chest (Breasts): Chest: + abnormal inspection of chest (right sided bruising, tender) Gastrointestinal (Abdomen): normal bowel sounds, soft, nontender, no hepatosplenomegaly Musculoskeletal: Head/Neck/Chest: normocephalic, head atraumatic and neck supple Spine: + limited thoraco-lumbar ROM Extremities: + abnormal strength; + extremities abnormal to inspection (bruises over right elbow/shoulder, bilateral hips/knees), no cyanosis, no clubbing and no petechiae Skin: no rashes and no wound Trauma: + contusion (hips, knees, elbow, shoulder, chest wall) Neurologic: patellar DTR's 2+ bilat, sensation intact and PERRL, EOMI, accommodation nl, no face palsy, no dysarthria Psychiatric: Orientation: alert and oriented x 3 Lymphatic: no cervical or axillary lymphadenopathy Results & Data Results & Data ([facility]) Vital Signs (Past 12 Hours) Vital Signs Temp Pulse Pulse Resp BP Pulse Ox 03/16/20 16:01 37.2 C 83 18 143/83 H 95 03/16/20 11:27 65 03/16/20 11:08 36.9 C 78 20 153/101 H 95 03/16/20 07:39 36.9 C 88 20 151/90 H 96 03/16/20 04:43 77 Laboratory Results Laboratory Results - last 24 hr 03/16/20 03/16/20 05:55 05:55 WBC 10.41 RBC 4.12 L Hgb 12.5 L Hct 37.0 L MCV 89.8 MCH 30.3 MCHC 33.8 RDW Std Deviation 45.6 RDW Coeff of Stephen 13.9 Plt Count 245 MPV 10.1 Sodium 140 D Potassium 3.6 D Chloride 107 Carbon Dioxide 29 Anion Gap 4.0 BUN 15 D Creatinine 0.67 Est Cr Clr Drug Dosing 84.7 Est GFR ( Amer) 116.9 Est GFR (Non-Af Amer) 100.8 BUN/Creatinine Ratio 22.5 H Glucose 126 H Calcium 8.0 L Magnesium 2.3 Total Creatine Kinase 657 H Medications Administered Current Inpatient Medications Acetaminophen (Acetaminophen 325 Mg Tab) 650 mg PO Q6H PRN PRN Reason: Pain, Moderate Stop: 04/14/20 17:10 Atorvastatin Calcium (Atorvastatin 10 Mg Tab) 10 mg PO DAILY [facility] Stop: 04/15/20 08:59 Last Admin: 03/16/20 09:59 Dose: 10 mg Documented by: Diclofenac Sodium (Diclofenac Sod 1% Gel 100 Gm Tube) 4 gm EXT QID [facility] Stop: 04/14/20 17:10 Last Admin: 03/16/20 20:05 Dose: 4 gm Documented by: Enoxaparin Sodium (Enoxaparin Inj 30 Mg/0.3 Ml Syr) 30 mg SQ Q24H [facility] Stop: 04/14/20 20:59 Last Admin: 03/16/20 20:05 Dose: 30 mg Documented by: Hydromorphone HCl (Hydromorphone Inj 0.5 Mg/0.5 Ml Syr) 0.5 mg IV Q4 PRN PRN Reason: Severe Pain Stop: 03/29/20 17:10 Last Admin: 03/16/20 20:02 Dose: 0.5 mg Documented by: Sodium Chloride (Nss 1000ml) 1,000 mls @ 100 mls/hr IV .Q10H [facility] Stop: 03/17/20 08:00 Last Admin: 03/16/20 22:02 Dose: 100 mls/hr Documented by: Lidocaine (Lidocaine 5% 1 Patch) 1 patch TD QAM [facility] Stop: 04/15/20 08:59 Last Admin: 03/16/20 09:59 Dose: 1 patch Documented by: Lidocaine (L[facility]ocaine 5% 1 Patch) [facility] Stop: 04/15/20 10:44 Last Admin: 03/16/20 12:06 Dose: 1 patch Documented by: Mirtazapine (Mirtazapine Tab 15 Mg Tab) 30 mg PO HS [facility] Stop: 04/14/20 20:59 Last Admin: 03/16/20 20:05 Dose: 30 mg Documented by: Miscellaneous (Remove Lidoderm Patch) 1 ea N/A DAILY@2100 [facility] Stop: 04/15/20 20:59 Last Admin: 03/16/20 20:06 Dose: 1 ea Documented by: Miscellaneous (Remove Lidoderm Patch) 1 ea N/A DAILY@2099 [facility] Stop: 04/15/20 20:59 Last Admin: 03/16/20 20:06 Dose: 1 ea Documented by: Ondansetron HCl (Ondansetron Inj 2 Mg/Ml 2 Ml Vial) 4 mg IV Q6H PRN PRN Reason: Nausea Stop: 04/14/20 17:10 Oxycodone HCl (Oxycodone Hcl Ir 5 Mg Tab (Immediate Release)) 5 mg PO Q4 PRN PRN Reason: Pain Stop: 03/29/20 17:10 Last Admin: 03/16/20 22:01 Dose: 5 mg Documented by: Pantoprazole Sodium (Pantoprazole 40 Mg Tab) [facility] [place] Stop: 04/15/20 08:59 Last Admin: 03/16/20 10:00 Dose: 40 mg Documented by: Propranolol HCl (Propranolol Hcl 10 Mg Tab) 10 mg PO BID [facility] Stop: 04/14/20 20:59 Last Admin: 03/16/20 20:05 Dose: 10 mg Documented by: Senna/Docusate Sodium (Docusate Sodium/Senna 50/8.6mg Tab) 1 tab PO [facility] Stop: 04/15/20 08:59 Last Admin: 03/16/20 10:00 Dose: 1 tab Documented by: Thiamine HCl (Thiamine Hcl 100 Mg Tab) [facility] Stop: 04/15/20 08:59 Last Admin: 03/16/20 08:30 Dose: 100 mg Documented by: PG Care Time/CCT Total # of Minutes Spent Total Time Spent with Patient: Total time spent is greater than 50% in coordination of care (as documented) at patient's floor/unit and/or counseling patient: Coding Level of Care Code 86207 Subseq Hosp Care Lvl 2 Diagnoses Multiple fractures of ribs, right side, initial encounter for closed fracture S22.41XA Rhabdomyolysis M62.82 Dehydration E86.0 Fall W19.XXXA Encounter type: initial encounter Chronic pain G89.29 Chronic pain type: other chronic pain Alcohol abuse F10.10 Depression F32.0 Active/Remission status: currently active Depression Type: major depressive disorder Major depression episode severity: mild Major depression recurrence: single episode Spinal stenosis of lumbar region M48.061 (1) Chronic pain Chronic pain type: other chronic pain Qualified Code(s): G89.29 - Other diamond 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
[2020-03-16] MEDS: ENOXAPARIN INJ 30 MG/0.3 ML SYR SQ SCH (20:05)
[2020-03-16] MEDS: MIRTAZAPINE TAB 15 MG TAB PO SCH (20:05)
[2020-03-17] MEDS: HYDROmorphone INJ 0.5 MG/0.5 ML SYR IV PRN ×7 (00:07→21:34)
[2020-03-17] MEDS: OXYCODONE HCL IR 5 MG TAB (IMMEDIATE RELEASE) PO PRN ×5 (06:05→23:13)
[2020-03-17 06:32] LABS: Hemoglobin 12.2 g/dL (14.0-18.0); Mean Corpuscular Hemoglobin 30.3 pg (25-34); Mean Platelet Volume 10.1 fL (7.4-10.4); Platelet Count 214 K/uL (130-400); RDW Coefficient of Variation 14.1 % (11.5-14.5); RDW Standard Deviation 47.3 fL (36.4-46.3); Red Blood Count 4.02 M/uL (4.7-6.1); White Blood Count 7.01 K/uL (4.8-10.8)
[2020-03-17 07:07] LABS: BUN Creatinine Ratio 21.5 (10-20); Creatinine Clr Calc Pharmacy 102.7 ml/min; Est GFR (African American) 125.8; Est GFR (Non-African American) 108.5; Potassium 3.8 mmol/L (3.5-5.1)
[2020-03-17] MEDS: LIDOCAINE 5% 1 PATCH TD SCH ×2 (08:09→08:10)
[2020-03-17] MEDS: ATORVASTATIN 10 MG TAB PO SCH (08:10)
[2020-03-17] MEDS: DICLOFENAC SOD 1% GEL 100 GM TUBE EXT SCH ×4 (08:10→21:11)
[2020-03-17] MEDS: THIAMINE HCL 100 MG TAB PO SCH (08:10)
[2020-03-17] MEDS: PROPRANOLOL HCL 10 MG TAB PO SCH ×2 (08:10→21:04)
[2020-03-17] MEDS: PANTOprazole 40 MG TAB PO SCH (08:10)
[2020-03-17] MEDS: DOCUSATE SODIUM/SENNA 50/8.6MG TAB PO SCH (08:36)
[2020-03-17] MEDS: ENOXAPARIN INJ 30 MG/0.3 ML SYR SQ SCH (21:04)
[2020-03-17] MEDS: MIRTAZAPINE TAB 15 MG TAB PO SCH (21:05)
--- NOTE | 2020-03-17 22:33 | Hospitalist Progress Note ---
Date of Service March 17, 2020 Assessment & Plan (1) Multiple fractures of ribs, right side, initial encounter for closed fracture: right sided rib fractures, due to fall at home, causing pain use Oxycodone 5mg q4 PRN and Dilaudid IV for breakthrough add Lidoderm patch bruising over hips and right elbow and right shoulder, no fractures of other bones on imaging will need PT/OT evaluations: appears to recommend home with home health. Will reval over Thursday and Thursday. his sister in [place] has concerns about his safety living alone most likely that he is drinking alcohol, possibly getting Methadone difficult social situation, CM is consulted (2) Rhabdomyolysis: mild with CK up to 1000's on admission, crush injury from fall, multiple bruises Cr is intact but he is clinical dry will continue NSS at 100cc/hr until tomorrow morning CK improved. repeat labs in the morning (3) Dehydration: dry oral membranes, slightly tachycardic on admission received 2 liters of NSS in the ED BP preserved, no further boluses needed will stop iVF. (4) Fall: two separate falls at home, landed on hardwood floor suspect he was drinking as his alcohol level was up slightly he admits to not using his rolling walker as he should be he has a scooter that he uses when he leaves his apartment will get PT/OT evaluations unsure he is safe to be at home, will consult CM his sister in [place] is also worried about his safety plan to keep over weekend to determine safe plan for discharge (5) Chronic pain: was weaned off of narcotics in the recent past now with legitimate pain with rib fractures he tested positive for Methadone, when asked he says he has not taken any for a month (6) Alcohol abuse: positive alcohol level in the morning likely drinking every day but denies he has depression, lives alone with no visitors (7) Depression: (8) Spinal stenosis of lumbar region: Admission and Anticipated Discharge Date Admission Date: March 15, 2020 Subjective Patient is complaining of multiple areas of pain today. These areas include his right shoulder, right chest, and bilateral knees. He reports though that the lidocaine patches help. He states he used to be on gabapentin and is unsure why it was stopped. He reports this was stopped prior to coming in the hospital. Review of Systems Constitutional: + weakness; no fever, no chills and no sweats Ear, Nose, Mouth, Throat: + dental pain; no ear pain Cardiovascular: + chest pain (right sided); no palpitations, no syncope and no edema Musculoskeletal: + back pain, + radicular pain, + joint pain, + limited range of motion, + myalgia and + muscle weakness Neurologic: + unsteadiness, + falls and + generalized weakness; no paresthesia, no tremor(s), no syncope, no headache(s) and no confusion Psychiatric: + depression, + hopelessness and + substance abuse (methadone, alcohol) Physical Exam Physical Exam: Constitutional: well developed, + thin, Eyes: PERRL, conjunctivae normal, anicteric sclerae ENMT: Mouth: + edentulous Neck: trachea midline, no thyromegaly Respiratory: normal respiratory effort, lungs clear to auscultation Cardiovascular: Rate/Rhythm: regular rhythm and + tachycardic Heart Sounds: normal S1 and normal S2; no murmur Vessels: no JVD Extremities: normal capillary refill; no edema Chest (Breasts): Chest: + abnormal inspection of chest (right sided bruising, tender) Gastrointestinal (Abdomen): normal bowel sounds, soft, nontender, no hepatosplenomegaly Musculoskeletal: Head/Neck/Chest: normocephalic, head atraumatic and neck supple Spine: + limited thoraco-lumbar ROM Extremities: no cyanosis, no clubbing and no petechiae Skin: no rashes and no wound Trauma: + contusion (hips, knees, elbow, shoulder, chest wall) Neurologic: patellar DTR's 2+ bilat, sensation intact and PERRL, EOMI, accommodation nl, no face palsy, no dysarthria Psychiatric: Orientation: alert and oriented x 3 Lymphatic: no cervical or axillary lymphadenopathy Results & Data Results & Data ([facility]) Vital Signs (Past 12 Hours) Vital Signs Temp Pulse Pulse Resp BP Pulse Ox 03/17/20 19:01 37 C 99 H 18 114/83 96 03/17/20 16:00 83 03/17/20 14:26 36.8 C 75 20 125/84 97 03/17/20 11:10 37.2 C 79 18 100/82 96 PG Care Time/CCT Total # of Minutes Spent Total Time Spent with Patient: Total time spent is greater than 50% in coordination of care (as documented) at patient's floor/unit and/or counseling patient: Coding Level of Care Code 41228 Subseq Hosp Care Lvl 3 Diagnoses Multiple fractures of ribs, right side, initial encounter for closed fracture S22.41XA Rhabdomyolysis M62.82 Dehydration E86.0 Fall W19.XXXA Encounter type: initial encounter Chronic pain G89.29 Chronic pain type: other chronic pain Alcohol abuse F10.10 Depression F32.0 Active/Remission status: currently active Depression Type: major depressive disorder Major depression episode severity: mild Major depression recurrence: single episode Spinal stenosis of lumbar region M48.061 Time Spent (min) 35 (1) Chronic pain Chronic pain type: other chronic pain Qualified Code(s): G89.29 - Other chronic pain (2) Depression Active/Remission status: currently active Depression Type: major depressive disorder Major depression episode severity: mild Major depression recurrence: single episode Qualified Code(s): F32.0 - Major depressive disorder, single episode, mild (3) Fall Encounter type: initial encounter Qualified Code(s): W19.XXXA - Unspecified fall, initial encounter
[2020-03-18] MEDS: HYDROmorphone INJ 0.5 MG/0.5 ML SYR IV PRN ×3 (02:15→10:30)
[2020-03-18] MEDS: OXYCODONE HCL IR 5 MG TAB (IMMEDIATE RELEASE) PO PRN ×5 (04:21→20:00)
[2020-03-18] MEDS: DICLOFENAC SOD 1% GEL 100 GM TUBE EXT SCH ×4 (08:26→20:02)
[2020-03-18] MEDS: LIDOCAINE 5% 1 PATCH TD SCH ×2 (08:29)
[2020-03-18] MEDS: ATORVASTATIN 10 MG TAB PO SCH (08:31)
[2020-03-18] MEDS: THIAMINE HCL 100 MG TAB PO SCH (08:31)
[2020-03-18] MEDS: PANTOprazole 40 MG TAB PO SCH (08:31)
[2020-03-18] MEDS: PROPRANOLOL HCL 10 MG TAB PO SCH ×2 (08:31→21:03)
[2020-03-18] MEDS: DOCUSATE SODIUM/SENNA 50/8.6MG TAB PO SCH (08:33)
[2020-03-18] MEDS: METHADONE HCL 10 MG TAB PO SCH ×2 (13:55→21:03)
--- NOTE | 2020-03-18 17:50 | Hospitalist Progress Note ---
Date of Service March 18, 2020 Assessment & Plan (1) Multiple fractures of ribs, right side, initial encounter for closed fracture: right sided rib fractures, due to fall at home, causing pain use Oxycodone 5mg q4 PRN, stop Dilaudid today resume his Methadone 10mg TID that he has been prescribed, last filled 02/13/20 continue Lidoderm patch for now bruising over hips and right elbow and right shoulder, no fractures of other bones on imaging will need PT/OT evaluations: appears to recommend home with home health. his sister in [place] has concerns about his safety living alone attempted to speak to her twice today, no answer certainly he is not making good decisions, drinking alcohol he is depressed, no friends or family here in [facility] (2) Rhabdomyolysis: mild with CK up to 1000's on admission, crush injury from fall, multiple bruises Cr is intact but he is clinical dry fluids stopped CK down to normal (3) Dehydration: dry oral membranes, slightly tachycardic on admission received 2 liters of NSS in the ED BP preserved, no further boluses needed will stop iVF. (4) Fall: two separate falls at home, landed on hardwood floor suspect he was drinking as his alcohol level was up slightly he admits to not using his rolling walker as he should be he has a scooter that he uses when he leaves his apartment will get PT/OT evaluations unsure he is safe to be at home, will consult CM his sister in [place] is also worried about his safety plan to keep over weekend to determine safe plan for discharge (5) Chronic pain: has been prescribed Methadone 10mg TID for years he was taking this in [place] prior to moving here 1.[address] Morelos was prescribing last script was 02/13/20 and he still had Methadone on his urine drug screen so he still had some a month later he would also get Oxycodone PRN and was on Gabapentin recent psychiatric admission, concerns for abusing his medications, he was anxious and depressed unsure that Dr. Morelos will continue to prescribe will ask pain management to see him for recommendations going forward he has legitimate spinal stenosis of neck and lumbar, has been told he is non- surgical candidate by Dr. Álvarez per patient, he was supposed to see pain management last or Thursday but he fell and fractured his ribs (6) Alcohol abuse: positive alcohol level in the morning likely drinking every day but denies he has depression, lives alone with no visitors he admits that he will drink to treat his pain because it gets intense (7) Depression: (8) Spinal stenosis of lumbar region: Admission and Anticipated Discharge Date Admission Date: March 15, 2020 Subjective patient doing better overall, less pain, less swelling in joints he is eating as much as he can, ambulating better no labs today reviewed his medication history on [place] prescriber database he gets Methadone 10mg TID, 90 tablets at a time for 30 days supply his last prescription was on 02/12 for 90 tablets, he still had methadone at home that he was taking in the last month he was hospitalized in the psychiatric unit for anxiety, depression suicidal thoughts at that time psychiatry had concerns that he was abusing his medications, specifically his Gabapentin he claims he was taking the Gabapentin because he needed more pain relief and it helped so he took more than prescribed he understands Dr. Morelos was made aware of this psychiatric hospitalization he was not able to see Dr. Morelos yet on follow up so he is unsure if Dr. Morelos will still prescribe his narcotics he missed his pain management visit that was for /Thursday last week because he fell and was hospitalized he was hoping to establish with pain management in addition to Methadone he was prescribed Oxycodone PRN at times as well as Xanax 0.25mg PRN at times he says he thinks he signed a pain medication contract and he never broke it to his knowledge he said that he has been on the Methadone for nearly a decade, he was prescribed it by his doctor in [place] he moved here 1.5 years ago and that physician wrote a letter so that Dr. Morelos would prescribe it difficult social situation, he lives alone in [facility], closest family member is his son who lives in [place] per Don, his son rarely visits, difficult to confirm this I attempted to call his sister in [place] twice but no answer question if he is safe at home but he does not have anywhere else to go has a history of falling at home, this time he was drinking alcohol Review of Systems Review of Systems: All systems reviewed & are unremarkable except as noted in Subjective Musculoskeletal: + back pain and + joint pain Neurologic: + unsteadiness and + numbness (bilateral legs/feet) Physical Exam Constitutional: well developed, + thin, + frail appearing and + disheveled Eyes: PERRL, conjunctivae normal, anicteric sclerae ENMT: Mouth: + edentulous Neck: trachea midline, no thyromegaly Respiratory: normal respiratory effort, lungs clear to auscultation Cardiovascular: RRR, no murmur, no edema Chest (Breasts): Chest: + abnormal inspection of chest (right sided bruising, tender) Gastrointestinal (Abdomen): normal bowel sounds, soft, nontender, no hepatosplenomegaly Musculoskeletal: Head/Neck/Chest: normocephalic, head atraumatic and neck supple Spine: + limited thoraco-lumbar ROM Extremities: + abnormal strength; + extremities abnormal to inspection (bruises over right elbow/shoulder, bilateral hips/knees), no cyanosis, no clubbing and no petechiae Skin: no rashes and no wound Trauma: + contusion (hips, knees, elbow, shoulder, chest wall) Neurologic: patellar DTR's 2+ bilat, sensation intact and PERRL, EOMI, accommodation nl, no face palsy, no dysarthria Psychiatric: Orientation: alert and oriented x 3 Affect: + anxious affect Lymphatic: no cervical or axillary lymphadenopathy Results & Data Results & Data ([facility]) Vital Signs (Past 12 Hours) Vital Signs Temp Pulse Pulse Resp BP Pulse Ox 03/18/20 15:23 37.1 C 87 16 97/69 L 96 03/18/20 11:08 36.9 C 76 16 121/84 95 03/18/20 07:10 36.9 C 84 16 119/85 95 03/18/20 07:07 86 Medications Administered Current Inpatient Medications Acetaminophen (Acetaminophen 325 Mg Tab) 650 mg PO Q6H PRN PRN Reason: Pain, Moderate Stop: 04/14/20 17:10 Atorvastatin Calcium (Atorvastatin 10 Mg Tab) 10 mg PO DAILY [facility] Stop: 04/15/20 08:59 Last Admin: 03/18/20 08:31 Dose: 10 mg Documented by: Diclofenac Sodium (Diclofenac Sod 1% Gel 100 Gm Tube) 4 gm EXT QID [facility] Stop: 04/14/20 17:10 Last Admin: 03/18/20 15:58 Dose: 4 gm Documented by: Enoxaparin Sodium (Enoxaparin Inj 30 Mg/0.3 Ml Syr) 30 mg SQ Q24H [facility] Stop: 04/14/20 20:59 Last Admin: 03/17/20 21:04 Dose: 30 mg Documented by: Lidocaine (Lidocaine 5% 1 Patch) 1 patch TD QAM [facility] Stop: 04/15/20 08:59 Last Admin: 03/18/20 08:29 Dose: 1 patch Documented by: Lidocaine (L[facility]ocaine 5% 1 Patch) [facility] Stop: 04/15/20 10:44 Last Admin: 03/18/20 08:29 Dose: 1 patch Documented by: Methadone HCl (Methadone Hcl 10 Mg Tab) 10 mg PO TID [facility] Stop: 04/01/20 13:59 Last Admin: 03/18/20 13:55 Dose: 10 mg Documented by: Mirtazapine (Mirtazapine Tab 15 Mg Tab) 30 mg PO HS [facility] Stop: 04/14/20 20:59 Last Admin: 03/17/20 21:05 Dose: 30 mg Documented by: Miscellaneous (Remove Lidoderm Patch) 1 ea N/A DAILY@2100 [facility] Stop: 04/15/20 20:59 Last Admin: 03/17/20 21:11 Dose: 1 ea Documented by: Miscellaneous (Remove Lidoderm Patch) 1 ea N/A DAILY@2100 [facility] Stop: 04/15/20 20:59 Last Admin: 03/17/20 21:11 Dose: 1 ea Documented by: Ondansetron HCl (Ondansetron Inj 2 Mg/Ml 2 Ml Vial) 4 mg IV Q6H PRN PRN Reason: Nausea Stop: 04/14/20 17:10 Last Admin: 03/18/20 15:25 Dose: 4 mg Documented by: Oxycodone HCl (Oxycodone Hcl Ir 5 Mg Tab (Immediate Release)) 5 mg PO Q4 PRN PRN Reason: Pain Stop: 03/29/20 17:10 Last Admin: 03/18/20 15:56 Dose: 5 mg Documented by: Pantoprazole Sodium (Pantoprazole 40 Mg Tab) [facility] Stop: 04/15/20 08:59 Last Admin: 03/18/20 08:31 Dose: 40 mg Documented by: Propranolol HCl (Propranolol Hcl 10 Mg Tab) 10 mg PO BID [facility] Stop: 04/14/20 20:59 Last Admin: 03/18/20 08:31 Dose: 10 mg Documented by: Senna/Docusate Sodium (Docusate Sodium/Senna 50/8.6mg Tab) 1 tab PO QAM [facility] Stop: 04/15/20 08:59 Last Admin: 03/18/20 08:33 Dose: 1 tab Documented by: Thiamine HCl (Thiamine Hcl 100 Mg Tab) 100 mg PO QAM [facility] Stop: 04/15/20 08:59 Last Admin: 03/18/20 08:31 Dose: 100 mg Documented by: PG Care Time/CCT Total # of Minutes Spent Total Time Spent: 40 Total Time Spent with Patient: Total time spent is greater than 50% in coordination of care (as documented) at patient's floor/unit and/or counseling patient: Coding Level of Care Code 88937 Subseq Hosp Care Lvl 3 Diagnoses Multiple fractures of ribs, right side, initial encounter for closed fracture S22.41XA Rhabdomyolysis M62.82 Dehydration E86.0 Fall W19.XXXA Encounter type: initial encounter Chronic pain G89.29 Chronic pain type: other chronic pain Alcohol abuse F10.10 Depression F32.0 Active/Remission status: currently active Depression Type: major depressive disorder Major depression episode severity: mild Major depression recurrence: single episode Spinal stenosis of lumbar region M48.061 (1) Chronic pain Chronic pain type: other chronic pain Qualified Code(s): G89.29 - Other chronic pain (2) Depression Active/Remission status: currently active Depression Type: major depressive disorder Major depression episode severity: mild Major depression recurrence: single episode Qualified Code(s): F32.0 - Major depressive disorder, single episode, mild (3) Fall Encounter type: initial encounter Qualified Code(s): W19.XXXA - Unspecified fall, initial encounter
[2020-03-18] MEDS: MIRTAZAPINE TAB 15 MG TAB PO SCH (21:04)
[2020-03-18] MEDS: ENOXAPARIN INJ 30 MG/0.3 ML SYR SQ SCH (21:04)
[2020-03-19] MEDS: OXYCODONE HCL IR 5 MG TAB (IMMEDIATE RELEASE) PO PRN ×6 (00:24→22:34)
[2020-03-19] MEDS: DOCUSATE SODIUM/SENNA 50/8.6MG TAB PO SCH (08:15)
[2020-03-19] MEDS: METHADONE HCL 10 MG TAB PO SCH ×3 (08:15→21:01)
[2020-03-19] MEDS: PANTOprazole 40 MG TAB PO SCH (08:16)
[2020-03-19] MEDS: LIDOCAINE 5% 1 PATCH TD SCH ×2 (08:16)
[2020-03-19] MEDS: DICLOFENAC SOD 1% GEL 100 GM TUBE EXT SCH ×4 (08:17→21:04)
[2020-03-19] MEDS: ATORVASTATIN 10 MG TAB PO SCH (08:17)
[2020-03-19] MEDS: THIAMINE HCL 100 MG TAB PO SCH (08:17)
[2020-03-19] MEDS: PROPRANOLOL HCL 10 MG TAB PO SCH ×2 (08:17→21:03)
--- NOTE | 2020-03-19 08:43 | Hospitalist Progress Note ---
Date of Service March 19, 2020 Assessment & Plan (1) Cervical radiculopathy: CT spine there are advanced multilevel degenerative changes with multilevel spinal and foraminal stenosis. Orthospine consult will be undertaken (2) Multiple fractures of ribs, right side, initial encounter for closed fracture: right sided rib fractures, due to fall at home, causing pain use Oxycodone increased to 10 mg resume his Methadone 10mg TID that he has been prescribed, last filled 02/13/20 continue Lidoderm patch for now Scheduled Tylenol and Celebrex bruising over hips and right elbow and right shoulder, no fractures of other bones on imaging will need PT/OT evaluations: appears to recommend home with home health. (3) Rhabdomyolysis: mild with CK up to 1000's on admission, crush injury from fall, multiple bruises CK down to normal (4) Fall: two separate falls at home, landed on hardwood floor suspect he was drinking plus he admits to not using his rolling walker (he has a scooter that he uses when he leaves his apartment) PT/OT evaluations unsure he is safe to be at home, will consult CM, his sister in [place] is also worried about his safety (5) Chronic pain: has been prescribed Methadone 10mg TID for years he was taking this in [place] prior to moving here 1.[address] Morelos was prescribing last script was 02/13/20 and he still had Methadone on his urine drug screen so he still had some a month later he would also get Oxycodone PRN and was on Gabapentin recent psychiatric admission, concerns for abusing his medications, he was anxious and depressed unsure that Dr. Morelos will continue to prescribe pain management has concerns that maybe radiculopathy from neck he has legitimate spinal stenosis of neck and lumbar, being re evaluated- surgical candidate by Dr. Álvarez (6) Alcohol abuse: positive alcohol level in the morning of admission he has depression, lives alone with no visitors (7) Depression: recent admission to psychiatry, typically on mirtazapine (8) Spinal stenosis of lumbar region: MRI of lumbar spine 10/2019 1. Moderate central canal stenosis at L2-L3 due to disc bulge, ligamentous hypertrophy and facet arthrosis. Mild to moderate central canal stenosis at L3-L4. 2. Multilevel neural foraminal stenosis, most pronounced at the right L4-L5 neural foramen Admission and Anticipated Discharge Date Admission Date: March 15, 2020 Subjective pt is in significant pain at times, not clear if from neck, lower back, or injuries from fall, Pain management is strongly considering that his cervical spine issues are significant and did call Ortho spine surgery to see, will await recommendations [place] prescriber database he gets Methadone 10mg TID, 90 tablets at a time for 30 days supply his last prescription was on 02/12 for 90 tablets, he still had methadone at home that he was taking in the last month he was hospitalized in the psychiatric unit for anxiety, depression suicidal thoughts at that time psychiatry had concerns that he was abusing his medications, specifically his Gabapentin he claims he was taking the Gabapentin because he needed more pain relief and it helped so he took more than prescribed he understands Dr. Morelos was made aware of this psychiatric hospitalization Since some of the depression maybe due to chronic opiate use, Dr Morelos may not continue to Rx these meds Pt thinks he signed a pain medication contract and he never broke it to his knowledge Review of Systems Review of Systems: Moderate distress and fatigue Mild persistent headache, blurry or double vision no speech or swallowing issues no chest pain, pressure or palpitations no shortness of breath, cough or wheezes no abdominal pain, nausea or vomiting, diarrhea or constipation no dysuria, hematuria or frequency Shoulder and rib cage pain worse with movement significant from his fall Chronic daily cervical and lower back pain, no CVA tenderness or radicular pain does complain of peripheral neuropathy which could be alcohol or worse cervical or lumbar radiculopathy unknown no bruising, bleeding or rashes no focal signs of weakness or numbness or altered sensation Planes of anxiety and depression Physical Exam Physical Exam: The patient appeared thin but well-nourished Vital signs as documented. Head exam is normocephalic atraumatic no scleral icterus Neck is without JVD, thyromegaly, or carotid bruits. Lungs are clear to auscultation, but diminished at the bases Cardiac exam, Rhythm is regular.. No murmurs, rubs or gallops. Abdominal exam reveals normal bowel sounds, soft slightly distended dull to percussion Extremities are nonedematous and both pedal pulses are normal. Neurologic exam is alert and oriented, some left shoulder strength decreased compared to right Skin is without bruises or rashes Psychologically is with tense for anxiety Results & Data Results & Data ([facility]) Vital Signs (Past 12 Hours) Vital Signs Temp Pulse Pulse Resp BP Pulse Ox 03/19/20 07:17 98.2 F 96 H 18 104/71 96 03/19/20 07:05 65 03/19/20 04:59 98.1 F 61 18 114/75 97 03/18/20 23:46 70 03/18/20 22:13 98.4 F 70 18 109/78 96 PG Care Time/CCT Total # of Minutes Spent Total Time Spent with Patient: Total time spent is greater than 50% in coor dination of care (as documented) at patient's floor/unit and/or counseling patient: Coding Level of Care Code 90094 Subseq Hosp Care Lvl 3 Diagnoses Cervical radiculopathy M54.12 Multiple fractures of ribs, right side, initial encounter for closed fracture S22.41XA Rhabdomyolysis M62.82 Fall W19.XXXA Encounter type: initial encounter Chronic pain G89.29 Chronic pain type: other chronic pain Alcohol abuse F10.10 Depression F32.0 Active/Remission status: currently active Depression Type: major depressive disorder Major depression episode severity: mild Major depression recurrence: single episode Spinal stenosis of lumbar region M48.061 (1) Chronic pain Chronic pain type: other chronic pain Qualified Code(s): G89.29 - Other chronic pain (2) Depression Active/Remission status: currently active Depression Type: major depressive disorder Major depression episode severity: mild Major depression recurrence: single episode Qualified Code(s): F32.0 - Major depressive disorder, single episode, mild (3) Fall Encounter type: initial encounter Qualified Code(s): W19.XXXA - Unspecified fall, initial encounter
--- NOTE | 2020-03-19 10:49 | Pain Management Consultation ---
Date of Consultation March 19, 2020 Assessment & Plan (1) Stenosis of cervical spine with myelopathy: 1. A compressive cervical myelopathy was noted on the patient cervical spine MRI from December 2019 and had been sent to neurosurgeon for consideration of decompression. Patient failed to show for this appointment secondary to transportation and issues and has had recurrent falls since that time. We will consult Dr. Álvarez from orthopedics spine for consideration of surgical options. There is no role for interventional pain management currently as the patient has minimal AP diameter of less than 5 mm. 2. Will consult dietary to optimize nutrition status should surgical interventi on be planned. 3. Patient has multiple bruises and contusions after a fall with hip shoulder rib fracture pain. Recommend continuation of lidocaine patch, diclofenac, oxycodone and methadone to minimize pain. There is no acute plans for intercostal nerve blocks as patient is able to deep breathe cough and move with minimal difficulty on examination. Should this change could consider intercosta l nerve blocks on the right to minimize pain however at this point the risks outweighs the benefit. 4. Consider increasing mirtazapine to 45 mg p.o. nightly. Defer to psychiatry and primary team. 5. May require increasing use of oxycodone in a postoperative setting. Given the patient's difficulty with social support consider short-term placement to assist with overall rehab. 6. Thank you for this consultation. (2) Spinal stenosis of lumbar region: (3) Ambulatory dysfunction: (4) Depression: Active/Remission status: currently active Depression Type: major depressive disorder Major depression episode severity: mild Major depression recurrence: single episode Qualified Code(s): F32.0 - Major depressive diso rder, single episode, mild (5) Alcohol abuse: (6) Multiple fractures of ribs, right side, initial encounter for closed fracture: (7) Fracture of transverse process of lumbar vertebra: Encounter type: initial encounter Fracture type: closed Qualified Code(s): S32.009A - Unspecified fracture of unspecified lumbar vertebra, initial encounter for closed fracture History of Present Illness Attending Physician: Cezar Cuevas MD History of Present Illness 64-year-old male who was most recently seen at the pain management office in December 2019. At that time he was assessed for chronic cervicalgia and cervical radiculopathy as well as lumbosacral spine complaints. He states that the pain has worsened over the last 10 years and had an MRI performed January 17, 2020 which showed a compressive cervical myelopathy. He was sent to a neurosurgeon for exploration of surgical options however the patient failed to present himself to that appointment due to transportation issues. He has had continuing recurrent falls since that evaluation and recently fell when he could not feel his legs or feet distal to the calf. He sustained 3 right-sided rib fractures (6, 7, 8th ribs), 2 transverse process fractures (L2-3 left), contusions over the right shoulder and bilateral hips. He has a history of chronic opiate dependence utilizing methadone 10 mg p.o. 3 times daily and oxycodone as needed for many years. Other previous interventions include acupuncture, gabapentin, mirtazapine, psychiatric evaluation, surgical evaluation by Dr. Álvarez. He was deemed not a candidate for epidural steroid injections due to a minimum AP diameter of less than 5 mm in the cervical spine in December 2019. He currently states that his right shoulder is his primary source of pain more so posteriorly than anteriorly. He does find significant benefit with lidocaine patch and Voltaren gel. He states he does not have any side effects from his opiates and moved his bowels yesterday. He denies any sedation or other side effects from opiate use. He continues on mirtazapine as recommended by psychiatry at a previous admission. He denies any bowel or bladder incontinence, footdrop, fever, chills, night sweats. He does have some vague discussion of motor weakness whether it be secondary to pain or true motor weakness is difficult to assess on interview. Pain Assessment Full Body Front + Back: 1. 2. 3. 4. 5. 6. [facility] Combined Pain Scale: 7-Severe - Pain prevents productive activity. Impossible to tolerate. Pain scale - at its best (0-10): 6 Pain scale - at its worst (0-10): 9 Allergies Allergy/AdvReac Type Severity Reaction Status Date / Time erythromycin base Allergy Intermediate Rash Verified 03/15/20 13:52 Home Medications Home Medications Medication Instructions Recorded Confirmed Type acetaminophen [Mapap 650 mg PO Q6H PRN #15 tab 03/03/19 03/15/20 Rx (acetaminophen)] diclofenac sodium [Voltaren] 4 g EXT QID #100 gm 05/27/19 03/15/20 Rx pantoprazole 40 mg tablet,delayed 40 mg PO QAM #30 tab 09/02/19 03/15/20 Rx release docusate sodium 100 mg capsule 100 mg PO BID PRN 01/02/20 03/15/20 History atorvastatin 10 mg tablet 10 mg PO DAILY #30 tab 01/09/20 03/15/20 Rx ondansetron 4 mg PO Q6H PRN #12 tab 02/12/20 03/15/20 Rx [id number] 1 tab PO BID 30 Days #60 tab 02/20/20 03/15/20 Rx [Caltrate 600-D Plus Minerals] mirtazapine 30 mg PO HS 30 Days #30 tab 02/20/20 03/15/20 Rx propranolol 10 mg PO BID 30 Days #60 tab 02/20/20 03/15/20 Rx sennosides-docusate sodium 1 tab PO QAM 30 Days #30 tab 02/20/20 03/15/20 Rx [Senokot-S] thiamine HCl (vitamin B1) [Vitamin 100 mg PO QAM 30 Days #30 tab 02/20/20 03/15/20 Rx B-1] Pain History Pain Intensity Pain scale - at its best (0-10): 6 Pain scale - at its worst (0-10): 9 Patient History Medical History Abdominal pain Acidosis, lactic Alcohol intoxication Anxiety Arthritis Bilateral lower extremity edema Bilateral lower leg cellulitis Chronic, continuous use of opioids Constipation Degenerative cervical spinal stenosis Diarrhea Generalized abdominal pain Hearing difficulty Hyperlipidemia Left rib fracture Lumbar radicular pain Nausea Neuropathy Pneumonia Sepsis Spinal stenosis of lumbar region Stomach ulcer Surgical History History of hernia repair History of oral surgery Family History Mother Anxiety Depression Cardiac disorder Hypertension Diabetes Mesothelioma Father Mesothelioma Diabetes Brother Diabetes Other No significant family history Social History Smoking Status: Former smoker Tobacco Type: Cigarettes Smoking End Date: 25 yrs ago; Second Hand Exposure: No; Hx Alcohol Use: Yes Alcohol type: hard liquor Hx Substance Use: Yes Last Used Substance: Hours (ago) Last Used Substance Other:: 6 weeks ago per pt Substance Use Type Other:: methadone Preferred Language: Sami Communication Ability: Effective Visual Impairment: Limited Hearing Ability: Normal Courtroom Reporter Required: No Beliefs That Will Affect Care: Buddhism Buddhism Beliefs: methodist pt requesting to see while in hospital. made primary RN aware marital status: Legally Current Living Situation: Alone Current Living Situation Comment: apartment Other Information That Helps Us Care for You: No Feels Safe at Home: Yes Safety Concerns: Feels Safe At This Time Assistive Devices: Glasses and Walker Assistive Devices Comment: pt states dentures are too big for him, don't fit anymore Physical Exam Physical Exam: Constitutional: Thin, deconditioned, cooperative on examination Psych: Awake, alert, and oriented 3 with normal affect and mood. Recent memory appears grossly intact Eyes: Pupils are equally round and reactive to light with normal size pupils, eyelids appear normal Ear, nose, mouth, and throat: Moist nasal and oral membranes, lips and tongues appear normal, no external ear abnormalities are noted Neck: The trachea is midline without deviation and no thyromegaly is noted Respiratory: Normal respiratory effort without distress, no audible wheezes or rhonchi. He was able to perform 1250 mL on the ISP at bedside CV: Normal S1 and S2 Chest: Deferred GI/abdomen: Non-tender without guarding, soft Musculoskeletal: Head is normocephalic and atraumatic, gait was not observed. He has full passive range of motion of his right shoulder. He is tender to palpation over the entire glenohumeral joint posteriorly more than anteriorly. There is old bruising noted over bilateral hip girdles as well as over right shoulder and ribs. Cervical: Lordotic curve: Normal Range of motion is decreased in all planes Tenderness: Mild to moderately tender over the axial midline Facet provocation: Negative bilaterally Hoffmans maneuver: Negative bilaterally Step-off injuries: None Strength: Strength is equal bilaterally with 5 out of 5 strength in all planes Sensation of upper extremities: Globally decreased bilaterally Deep tendon reflexes: Rated at 2+ in bilateral biceps, triceps, brachial radialis Myofascial spasm: Minimal appreciable spasm over proximal trapezius. No discrete trigger points noted Thoracic: Kyphotic curve: Normal Range of motion is decreased in all planes Tenderness: Moderately tender over the axial midline from T4-T8 right side greater than left Facet provocation: Negative bilaterally Myofascial spasm: No appreciable spasm. No discrete trigger points noted Lumbar: Lordotic curve: Loss of lumbar lordosis Range of motion is normal with extension, flexion, side-bending, rotation Strength: Strength is equal bilaterally with 5 out of 5 strength in all planes Sensation of lower extremities: Intact bilaterally to the level of the midcalf then patchy dysesthesias in a stocking distribution Deep tendon reflexes: Rated at 2+ in bilateral L4 and S1 Myofascial spasm: No appreciable spasm. No discrete trigger points noted Greater trochanters: Moderately tender bilaterally Sacroiliac joints: Nontender bilaterally Pathologic reflexes noted: Ankle clonus noted bilaterally Skin: No rashes, lesions, ulcers, or induration noted Neuro: No nystagmus noted, the tongue is midline, the patient is able to rotate their head bilaterally : Deferred Results (Pain Clinic) Diagnostic Review MRI: non enhanced, reports reviewed, images reviewed and findings discussed with patient MRI Findings: 01/17/20 MRI OF THE CERVICAL SPINE WITHOUT IV CONTRAST CLINICAL HISTORY: Cervical radiculopathy. COMPARISON STUDY: CT scan of the cervical spine dated 11/20/2019. TECHNIQUE: MRI of the cervical spine is performed using various T1 and T2- weighted sequences in the axial and sagittal planes. IV contrast was not administered for this examination. FINDINGS: Cervical spine: Marrow signal intensity is heterogeneous. Vertebral body height is maintained at the cervical spine. There is minimal retrolisthesis at C4-C5. Alignment is otherwise preserved. There is straightening of cervical lordosis. Anterior osteophytes are seen throughout. The atlantodental articulation is maintained. The spinous processes appear intact. No destructive bony lesion is seen. Chronic degenerative endplate change is noted at C4-C5 and C5-C6. Mild endplate edema is noted at C4-C5. Intervertebral discs: Degenerative disc desiccation and loss of height is seen throughout the cervical spine. Loss of height is severe at C4-C5 and C5-C6. Loss of height is moderate at C3-C4 and C6-C7. Spinal cord: There is focal narrowing of the cervical cord at C4-C5. There is increased signal within the cervical cord at this level, likely related to compressive myelopathy. C2-C3: A posterior disc osteophyte complex eccentric to the right minimally effaces the ventral subarachnoid space. Uncovertebral and facet arthropathy causes moderate bilateral neural foraminal stenosis. C3-C4: A posterior disc osteophyte complex abuts the ventral cord. The minimum AP canal diameter at this level measures 5 mm. Uncovertebral and facet arthropathy cause severe bilateral neural foraminal stenosis. C4-C5: A posterior disc osteophyte complex eccentric to the left effaces the ventral cord. The minimum AP canal diameter at this level measures 5 mm. Uncovertebral and facet arthropathy cause severe left greater than right neural foraminal stenosis. C5-C6: A posterior disc osteophyte complex abuts the ventral cord. Uncovertebral and facet arthropathy cause severe bilateral neural foraminal stenosis. C6-C7: A posterior disc osteophyte complex abuts the ventral cord. Uncovertebral and facet arthropathy cause severe bilateral neural foraminal stenosis. C7-T1: A posterior disc osteophyte complex minimally effaces the ventral subarachnoid space. Uncovertebral and facet arthropathy cause [id number] bilateral neural foraminal stenosis. T1-T2: Unremarkable. Soft tissues: The prevertebral and paraspinous soft tissues are normal as visualized. Brain parenchyma: Small chronic lacunar infarcts are suggested in the german. Visualized brain parenchyma at the skull base is otherwise normal in appearance. IMPRESSION: 1. Advanced multilevel cervical spondylosis as above, greatest at C4-C5 and C5- C6. See discussion for detailed [id number] analysis. 2. There is thinning of the cervical cord with increased signal at the level of C4-C5. This likely represents compressive myelopathy. 3. Degenerative disc disease as above. 11/20/19 MRI OF THE LUMBAR SPINE WITHOUT CONTRAST CLINICAL HISTORY: Lumbar spine pain. Leg weakness. COMPARISON STUDY: Lumbar spine CT May 24, 2019. TECHNIQUE: Utilizing a 1.5 Ines magnet and dedicated coil, multiplanar, multiecho imaging of the lumbar spine was performed without IV contrast. FINDINGS: For purposes of numbering on this exam, the L5-S1 disc space is assigned to axial image 28 of 32. There is mild dextroscoliosis of the lumbar spine. There is straightening of the normal lumbar lordosis. There is no fracture or suspicious marrow replacement. There are discogenic changes at the L2-L3 level. There is no intracanalicular mass or fluid collection. The conus terminates at the mid L1 level. Paravertebral soft tissues are unremarkable. There is no evidence for discitis or osteomyelitis within the lumbar spine. L1-2: There is mild disc bulge with ligamentous hypertrophy and facet arthrosis. This mild narrowing of the central canal, left lateral recess and the left neural foramen. L2-3: There is marked disc space narrowing with disc bulge with ligamentous hypertrophy and facet arthrosis. Moderate central canal stenosis is noted. AP diameter of the chest have canal is 6.4 mm. There is moderate narrowing of the bilateral lateral recesses and mild narrowing of both neural foramen. L3-4: There is disc space narrowing with disc bulge, ligamentous hypertrophy and facet arthrosis. There is mild to moderate narrowing of the central canal, lateral recesses and left neural foramen with moderate narrowing of the right neural foramen. L4-5: There is disc space narrowing with disc bulge, ligamentous hypertrophy and facet arthrosis. Central canal is patent. There is mild narrowing of the lateral recesses. There is moderate bilateral neural foraminal stenosis. L5-S1: There is facet arthrosis. Central canal is patent. Severe right and moderate left neural foraminal stenosis is noted. IMPRESSION: 1. Moderate central canal stenosis at L2-L3 due to disc bulge, ligamentous hypertrophy and facet arthrosis. Mild to moderate central canal stenosis at L3- L4. 2. Multilevel neural foraminal stenosis, most pronounced at the right L4-L5 neural foramen. 3. No lumbar spine fracture. 4. Mild dextroscoliosis of the lumbar spine. Previous Records Review Previous Records: personally reviewed by me Opioid Risk Assessment Opioid Risk Assessment: risk assessment performed and moderate risk identified
[2020-03-19] MEDS: CELECOXIB 100 MG CAP PO SCH (19:17)
--- NOTE | 2020-03-19 19:26 | Magnetic Resonance Report ---
MRI OF THE CERVICAL SPINE WITHOUT IV CONTRAST CLINICAL HISTORY: Cervical stenosis. Radiculopathy. COMPARISON STUDY: CT scan of the cervical spine dated 03/15/2020. MRI of the cervical spine dated 01/16. TECHNIQUE: MRI of the cervical spine is performed using various T1 and T2-weighted sequences in the a xial and sagittal planes. IV contrast was not administered for this examination. FINDINGS: Cervical spine: Marrow signal intensity is heterogeneous. Vertebral body height is maintained through out the cervical spine. There is minimal retrolisthesis at C4-C5. Alignment is otherwise preserved. T here is straightening of the cervical lordosis. Anterior osteophytes are seen throughout. The atlanto dental articulation is maintained. The spinous processes appear intact. No destructive bony lesion is seen. Chronic degenerative endplate change is noted at C4-C5 and C5-C6. Mild endplate edema is noted at C4-C5. Intervertebral discs: Degenerative disc desiccation and loss of height is seen throughout the cervica l spine. Loss of height is severe at C4-C5 and C5-C6. Loss of height is moderate at C3-C4, C6-C7, and C7-T1. Spinal cord: There is focal narrowing of the cervical cord at C4-C5. There is increased signal within the cervical cord at this level, likely related to compressive myelopathy. C2-C3: A posterior disc osteophyte complex eccentric to the right minimally effaces the ventral subar achnoid space. Uncovertebral and facet arthropathy causes moderate bilateral neural foraminal stenosi s. C3-C4: A posterior disc osteophyte complex abuts the ventral cord. The minimum AP canal diameter at t his level measures 5 mm. Uncovertebral and facet arthropathy cause severe bilateral neural foraminal stenosis. C4-C5: A posterior disc osteophyte complex eccentric to the left effaces the ventral cord. The minimu m AP canal diameter at this level measures 5 mm. Uncovertebral and facet arthropathy cause severe lef t greater than right neural foraminal stenosis. C5-C6: A posterior disc osteophyte complex abuts the ventral cord. Uncovertebral and facet arthropath y cause severe bilateral neural foraminal stenosis. C6-C7: A posterior disc osteophyte complex abuts the ventral cord. Uncovertebral and facet arthropath y cause severe bilateral neural foraminal stenosis. C7-T1: A posterior disc osteophyte complex minimally effaces the ventral subarachnoid space. Uncovert ebral and facet arthropathy cause [id number] bilateral neural foraminal stenosis. Soft tissues: The prevertebral and paraspinous soft tissues are normal as visualized. Brain parenchyma: The visualized brain parenchyma at the skull base is normal in appearance. IMPRESSION: 1. Advanced multilevel cervical spondylosis as above, greatest at C4-C5 and C5-C6. This is unchanged from 01/17/2020. See discussion for detailed [id number] analysis. 2. Again seen is thinning of the cervical cord with increased signal at the level of C4-C5. This like ly represents compressive myelopathy. 3. No destructive bony process is identified. Electronically signed by: Nathaniel Pleitez M.D. 03/19/2020 7:25 PM
[2020-03-19] MEDS: ACETAMINOPHEN 500 MG TAB PO SCH (21:02)
[2020-03-19] MEDS: MIRTAZAPINE TAB 15 MG TAB PO SCH (21:03)
[2020-03-19] MEDS: ENOXAPARIN INJ 30 MG/0.3 ML SYR SQ SCH (21:05)
[2020-03-20] MEDS: OXYCODONE HCL IR 5 MG TAB (IMMEDIATE RELEASE) PO PRN ×6 (02:30→23:38)
[2020-03-20] MEDS: DOCUSATE SODIUM/SENNA 50/8.6MG TAB PO SCH (08:29)
[2020-03-20] MEDS: METHADONE HCL 10 MG TAB PO SCH ×3 (08:29→21:08)
[2020-03-20] MEDS: CELECOXIB 100 MG CAP PO SCH (08:30)
[2020-03-20] MEDS: PROPRANOLOL HCL 10 MG TAB PO SCH ×2 (08:30→21:10)
[2020-03-20] MEDS: ACETAMINOPHEN 500 MG TAB PO SCH ×3 (08:30→21:09)
[2020-03-20] MEDS: THIAMINE HCL 100 MG TAB PO SCH (08:30)
[2020-03-20] MEDS: ATORVASTATIN 10 MG TAB PO SCH (08:31)
[2020-03-20] MEDS: DICLOFENAC SOD 1% GEL 100 GM TUBE EXT SCH ×4 (08:31→22:04)
[2020-03-20] MEDS: PANTOprazole 40 MG TAB PO SCH (08:33)
[2020-03-20] MEDS: LIDOCAINE 5% 1 PATCH TD SCH ×2 (08:33)
--- NOTE | 2020-03-20 16:37 | Hospitalist Progress Note ---
Date of Service March 20, 2020 Assessment & Plan (1) Cervical radiculopathy: CT spine there are advanced multilevel degenerative changes with multilevel spinal and foraminal stenosis. Orthospine consult will be undertaken pt has some improvement in pain but not weakness with addition of scheduled tylenol, celebrex and increase of oxycodone prn to 10 mg per dose continues on methadone (2) Multiple fractures of ribs, right side, initial encounter for closed fracture: right sided rib fractures, due to fall at home, causing pain use Oxycodone increased to 10 mg resume his Methadone 10mg TID that he has been prescribed, last filled 02/13/20 continue Lidoderm patch for now Scheduled Tylenol and Celebrex bruising over hips and right elbow and right shoulder, no fractures of other bones on imaging considering encompass (3) Fall: two separate falls at home, landed on hardwood floor suspect he was drinking plus he admits to not using his rolling walker (he has a scooter that he uses when he leaves his apartment) PT/OT evaluations unsure he is safe to be at home, will consult CM, his sister in [place] is also worried about his safety (4) Chronic pain: has been prescribed Methadone 10mg TID for years he was taking this in [place] prior to moving here 1.[address] Morelos was prescribing last script was 02/13/20 and he still had Methadone on his urine drug screen so he still had some a month later he would also get Oxycodone PRN and was on Gabapentin recent psychiatric admission, concerns for abusing his medications, he was anxio us and depressed unsure that Dr. Morelos will continue to prescribe pain management has concerns that maybe radiculopathy from neck he has legitimate spinal stenosis of neck and lumbar, being re evaluated- surgical candidate by Dr. Álavrez (5) Alcohol abuse: positive alcohol level in the morning of admission he has depression, lives alone with no visitors (6) Depression: recent admission to psychiatry, typically on mirtazapine (7) Spinal stenosis of lumbar region: MRI of lumbar spine 10/2019 1. Moderate central canal stenosis at L2-L3 due to disc bulge, ligamentous hypertrophy and facet arthrosis. Mild to moderate central canal stenosis at L3-L4. 2. Multilevel neural foraminal stenosis, most pronounced at the right L4-L5 neural foramen (8) Rhabdomyolysis: mild with CK up to 1000's on admission, crush injury from fall, multiple bruises CK down to normal- rhabdomyolysis resolved Admission and Anticipated Discharge Date Admission Date: March 15, 2020 Subjective pt has had some improvement in pain with some minor tweaks to pain regime ortho spine surgery to see, will await recommendations with or without surgery pt will need rehab at discharge [place] prescriber database he gets Methadone 10mg TID, 90 tablets at a time for 30 days supply his last prescription was on 02/12 for 90 tablets, he still had methadone at home that he was taking in the last month he was hospitalized in the psychiatric unit for anxiety, depression suicidal thoughts at that time psychiatry had concerns that he was abusing his medications, specifically his Gabapentin he claims he was taking the Gabapentin because he needed more pain relief and it helped so he took more than prescribed he understands Dr. Morelos was made aware of this psychiatric hospitalization Since some of the depression maybe due to chronic opiate use, Dr Morelos may not continue to Rx these meds Pt thinks he signed a pain medication contract and he never broke it to his knowledge Review of Systems Review of Systems: Moderate distress and fatigue Mild persistent headache, blurry or double vision no speech or swallowing issues no chest pain, pressure or palpitations no shortness of breath, cough or wheezes no abdominal pain, nausea or vomiting, diarrhea or constipation no dysuria, hematuria or frequency Shoulder and rib cage pain worse with movement significant from his fall continues with Chronic daily cervical and lower back pain, no CVA tenderness or radicular pain, persistent peripheral neuropathy no bruising, bleeding or rashes no focal signs of weakness or numbness or altered sensation Planes of anxiety and depression Physical Exam Physical Exam: The patient appeared thin but well-nourished Vital signs as documented. Head exam is normocephalic atraumatic no scleral icterus Neck is without JVD, thyromegaly, or carotid bruits. Lungs are clear to auscultation, but diminished at the bases Cardiac exam, Rhythm is regular.. No murmurs, rubs or gallops. Abdominal exam reveals normal bowel sounds, soft slightly distended dull to percussion Extremities are nonedematous and both pedal pulses are normal. Neurologic exam is alert and oriented, some left shoulder strength decreased compared to right Skin is without bruises or rashes Psychologically is with tense for anxiety Results & Data Results & Data ([facility]) Vital Signs (Past 12 Hours) Vital Signs Temp Pulse Pulse Resp BP Pulse Ox 03/20/20 15:47 98.1 F 74 19 111/73 95 03/20/20 12:15 98.8 F 67 18 105/72 96 03/20/20 07:02 64 03/20/20 07:01 98.1 F 70 16 106/72 94 03/20/20 04:50 98.2 F 67 18 110/74 94 PG Care Time/CCT Total # of Minutes Spent Total Time Spent with Patient: Total time spent is greater than 50% in coordination of care (as documented) at patient's floor/unit and/or counseling patient: Coding Level of Care Code 71673 Subseq Hosp Care Lvl 2 Diagnoses Cervical radiculopathy M54.12 Multiple fractures of ribs, right side, initial encounter for closed fracture S22.41XA Fall W19.XXXA Encounter type: initial encounter Chronic pain G89.29 Chronic pain type: other chronic pain Alcohol abuse F10.10 Depression F32.0 Active/Remission status: currently active Depression Type: major depressive disorder Major depression episode severity: mild Major depression recurrence: single episode Spinal stenosis of lumbar region M48.061 Rhabdomyolysis M62.82 (1) Fall Encounter type: initial encounter Qualified Code(s): W19.XXXA - Unspecified fall, initial encounter (2) Chronic pain Chronic pain type: other chronic pain Qualified Code(s): G89.29 - Other chronic pain (3) Depression Active/Remission status: currently active Depression Type: major depressive disorder Major depression episode severity: mild Major depression recurrence: single episode Qualified Code(s): F32.0 - Major depressive disorder, single episode, mild
[2020-03-20] MEDS: ENOXAPARIN INJ 30 MG/0.3 ML SYR SQ SCH (21:10)
[2020-03-20] MEDS: MIRTAZAPINE TAB 15 MG TAB PO SCH (21:11)
[2020-03-20] MEDS ORDERED: POLYETHYLENE (MIRALAX) 17 GM PACK PO PRN (22:04)
[2020-03-20] MEDS: DOCUSATE SODIUM 100 MG CAP PO PRN (23:41)
[2020-03-21] MEDS: OXYCODONE HCL IR 5 MG TAB (IMMEDIATE RELEASE) PO PRN ×4 (04:28→15:44)
[2020-03-21] MEDS: METHADONE HCL 10 MG TAB PO SCH ×2 (07:39→13:29)
[2020-03-21] MEDS: DOCUSATE SODIUM/SENNA 50/8.6MG TAB PO SCH (07:39)
[2020-03-21] MEDS: DOCUSATE SODIUM 100 MG CAP PO PRN (07:39)
[2020-03-21] MEDS: ACETAMINOPHEN 500 MG TAB PO SCH ×2 (07:40→13:30)
[2020-03-21] MEDS: PANTOprazole 40 MG TAB PO SCH (07:41)
[2020-03-21] MEDS: CELECOXIB 100 MG CAP PO SCH (07:41)
[2020-03-21] MEDS: PROPRANOLOL HCL 10 MG TAB PO SCH (07:41)
[2020-03-21] MEDS: ATORVASTATIN 10 MG TAB PO SCH (07:41)
[2020-03-21] MEDS: THIAMINE HCL 100 MG TAB PO SCH (07:41)
[2020-03-21] MEDS: DICLOFENAC SOD 1% GEL 100 GM TUBE EXT SCH ×3 (07:41→13:30)
[2020-03-21] MEDS: LIDOCAINE 5% 1 PATCH TD SCH ×2 (07:42)
[2020-03-21 07:50] LABS: Hematocrit (blood only) 35.3 % (42-52); Hemoglobin 11.6 g/dL (14.0-18.0); Mean Corpuscular Hgb Conc 32.9 g/dL (32-36); Mean Corpuscular Volume 94.4 fL (80-100); Platelet Count 216 K/uL (130-400); RDW Coefficient of Variation 14.1 % (11.5-14.5); RDW Standard Deviation 48.4 fL (36.4-46.3); Red Blood Count 3.74 M/uL (4.7-6.1)
[2020-03-21 08:15] LABS: Albumin Level 3.1 gm/dl (3.4-5.0); BUN Creatinine Ratio 32.8 (10-20); Calcium 8.1 mg/dl (8.5-10.1); Creatinine Clr Calc Pharmacy 75.2 ml/min; Est GFR (African American) 112.2; Est GFR (Non-African American) 96.8; Potassium 4.2 mmol/L (3.5-5.1)
[2020-03-21 08:18] LABS: Bilirubin,Total 0.2 mg/dl (0.2-1); Globulin 3.1 gm/dl (2.5-4.0); Total Protein 6.2 gm/dl (6.4-8.2)
[2020-03-21 12:01] LABS: Methadone, Ur Metabolite 123 ng/mL (<100)
--- NOTE | 2020-03-21 13:56 | Discharge Summary ---
Date of Service March 21, 2020 Admission HPI Per Admitting Provider 64 yo male with history of spinal stenosis, anxiety and depression, chronic pain with suspected opiate abuse, alcohol use who was brought to the ED today after he fell twice in his apartment. He said that he fell at is apartment when he was walking to the bathroom. He says he slipped on the hardwood floor and landed on his right side. He was able to slowly get up but then he fell again and the second fall caused him to lay on the floor for 10 minutes. He struck the floor, he denies hitting his head, denies hitting the sink or toilet. He did not lose consciousness. He admits that he should have been using his rolling walker. He denied drinking alcohol but whe I asked him why his alcohol level was positive he says he drank last night. He has not felt sick or light headed. He has been leaving his apartment to get food, he uses his motorized scooter. He says he is lonely in his apartment, he has no one to talk to. He has been trying to eat well but it is difficult for him to eat and difficult to get food because he is weak and in pain. He says that all his joints hurt really badly, including his hips and knees. He shows me dark bruises on his hips and knees. In the ED he was found to have fractured ribs on the right side. No other fractures seen. He was given NSS x 2 liters and Morphine 4mg. He said the morphine did not help his pain. Principal Diagnosis mechanical fall with rib fractures alcohol abuse cervical myelopathy lumbar myelopathy Discharge Exam The patient appeared well, he is thin and weak Vital signs as documented. Lungs are clear to auscultation and appear unlabored Cardiac exam, Rhythm is regular.. No murmurs, rubs or gallops. Abdominal exam reveals normal bowel sounds, soft non tender, no masses Extremities are nonedematous and both pedal pulses are normal. Neurologic exam is alert and oriented, some minor left shoulder weakness peripheral neuropahty Skin is without bruises or rashes Psychologically is without concerns for acute changes in anxiety or depression but persistent history of depression and substance abuse. Discharge Data Allergies Allergy/AdvReac Type Severity Reaction Status Date / Time erythromycin base Allergy Intermediate Rash Verified 03/15/20 13:52 Consultations 03/15/20 14:21 ED Decision to Admit Stat 03/15/20 17:11 Consult Case Management - Discharge Planning Routine 03/18/20 22:09 Consult Pain Management Routine 03/19/20 10:12 Consult Orthopedic Surgery Routine Ordered Studies 03/15/20 12:33 CT abd pelvis IV con only Stat CT cervical spine wo con Stat CT chest w con Stat CT head/brain wo con Stat 03/19/20 12:28 MR cervical spine wo con Routine Hospital Course (1) Cervical radiculopathy: CT spine there are advanced multilevel degenerative changes with multilevel spinal and foraminal stenosis. Orthospine consult feels his functional status needs to improve as well as nutrition and abstinence from alcohol. he has less clinical complaints of pain and weakness, will re visit in office after a few weeks at rehab and away from alcohol continue scheduled tylenol, celebrex lidoderm and increased oxycodone prn to 10 mg per dose continues on methadone (2) Multiple fractures of ribs, right side, initial encounter for closed fracture: right sided rib fractures, due to fall at home, causing pain use Oxycodone increased to 10 mg resume his Methadone 10mg TID that he has been prescribed, last filled 02/13/20 continue Lidoderm patch Scheduled Tylenol and Celebrex bruising over hips and right elbow and right shoulder, no fractures of other bones on imaging (3) Fall: two separate falls at home, landed on hardwood floor suspect he was drinking plus his neuropathy and weakness from deconditioining and poor nutrition he admits to not using his rolling walker (he has a scooter that he uses when he leaves his apartment) (4) Chronic pain: has been prescribed Methadone 10mg TID for years he was taking this in [place] prior to moving here 1.[address] Morelos was prescribing last script was 02/13/20 and he still had Methadone on his urine drug screen so he still had some a month later he would also get Oxycodone PRN and was on Gabapentin recent psychiatric admission, concerns for abusing his medications, he was anxious and depressed unsure that Dr. Morelos will continue to prescribe pain management has concerns that maybe radiculopathy from neck he has legitimate spinal stenosis of neck and lumbar, Dr Álvarez suggest rehab and abstinence from alcohol and re evaluate in the office (5) Alcohol abuse: positive alcohol level in the morning of admission he has depression, lives alone with no visitors (6) Depression: recent admission to psychiatry, typically on mirtazapine (7) Spinal stenosis of lumbar region: MRI of lumbar spine 10/2019 1. Moderate central canal stenosis at L2-L3 due to disc bulge, ligamentous hypertrophy and facet arthrosis. Mild to moderate central canal stenosis at L3-L4. 2. Multilevel neural foraminal stenosis, most pronounced at the right L4-L5 neural foramen (8) Rhabdomyolysis: mild with CK up to 1000's on admission, crush injury from fall, multiple bruises CK down to normal- rhabdomyolysis resolved Total Time Total Time Spent Total Time Spent (In Minutes): It required greater than 30 minutes to prepare this patient for discharge Discharge Plan Discharge Items Patient Disposition: Transfer Inpatient Rehab Fac Reason For Visit: RIB FRACTURE, FALL AT HOME Discharge Diagnosis: intractable pain, lumbar and cervical spine arthritic changes alcohol use Activity: Per Instructions section Activity Comment: per Physical and occupational therapy Non-emergency contact: Primary Care Provider Call non-emergency contact if: you have any medication questions Follow-up/Referrals: Hernando Morelos III, MD [Primary Care Provider] - Leobardo Álvarez DO [Surgeon] - Diet: Regular Addtl Attending Provider Instructions: Dr. Álvarez is aware of your transfer to rehab center he will follow you up as an outpatient Dr. Robb is also reviewed transfer to rehab center I will phone Dr. Morelos's office about assume your care once you are discharged from the rehab center Pending Studies at Discharge: No Stand-Alone Forms: My [facility] Skilled Items Patient informed of condition?: Yes DNR: No Discharge Level of Care: Acute rehab Communicable Disease: No Discharge Prognosis: Stable Lines: None Urinary Catheter: No Medications and DC Order Prescriptions: New methadone 10 mg Tablet 10 mg PO TID Qty: 10 RF: 0 acetaminophen 500 mg Tablet 1,000 mg PO TID Qty: 30 RF: 0 lidocaine 5 % Adhesive Patch,Medicated 1 patch transdermal QAM Qty: 1 RF: 0 celecoxib [Celebrex] 100 mg Capsule 100 mg PO DAILY Qty: 20 RF: 0 oxycodone 5 mg Tablet 10 mg PO Q4 PRN (Reason: pain) Qty: 14 RF: 0 Continued docusate sodium [Colace] 100 mg capsule 100 mg PO BID PRN (Reason: Constipation) RF: 0 pantoprazole 40 mg tablet,delayed release (DR/EC) 40 mg PO QAM Qty: 30 RF: 11 atorvastatin 10 mg tablet 10 mg PO DAILY Qty: 30 RF: 11 propranolol 10 mg Tablet 10 mg PO BID 30 Days Qty: 60 RF: 0 mirtazapine 30 mg tablet 30 mg PO HS 30 Days Qty: 30 RF: 0 sennosides-docusate sodium [Senokot-S] 8.6-50 mg Tablet 1 tab PO QAM 30 Days Qty: 30 RF: 0 thiamine HCl (vitamin B1) [Vitamin B-1] 100 mg Tablet 100 mg PO QAM 30 Days Qty: 30 RF: 0 Caltrate 600-D Plus Minerals 600 mg calcium- 800 unit-50 mg Tablet 1 tab PO BID 30 Days Qty: 60 RF: 0 diclofenac sodium [Voltaren] 1 % Gel 4 g EXT QID Qty: 100 RF: 0 Discontinued ondansetron 4 mg tablet,disintegrating 4 mg PO Q6H PRN (Reason: nausea and vomiting) Qty: 12 RF: 0 acetaminophen [Mapap (acetaminophen)] 325 mg Tablet 650 mg PO Q6H PRN (Reason: Pain, Moderate) Qty: 15 RF: 0 Discharge Orders: Discharge Order (Routine); Ordered 03/21/20 Ordered By: Cezar Cuevas Admission Data Admit Date/Time: 03/15/20 15:43 Attending Provider: Cezar Cuevas Admit Provider: Jethro Robb Primary Care Provider: Hernando Morelos III Other Providers: David Donovan ; Shannan Servin ; Leobardo Álvarez ; [employer] ; [facility] Coding Level of Care Code D/C Day Management >30 mins Diagnoses Cervical radiculopathy M54.12 Multiple fractures of ribs, right side, initial encounter for closed fracture S22.41XA Fall W19.XXXA Encounter type: initial encounter Chronic pain G89.29 Chronic pain type: other chronic pain Alcohol abuse F10.10 Depression F32.0 Active/Remission status: currently active Depression Type: major depressive disorder Major depression episode severity: mild Major depression recurrence: single episode Spinal stenosis of lumbar region M48.061 Rhabdomyolysis M62.82
--- NOTE | 2020-03-28 12:59 | Orthopedic Consultation ---
Date of Consultation March 28, 2020 Assessment & Plan (1) Stenosis of cervical spine with myelopathy: MRI of the cervical spine is available for review was able to review this compared to previous MRIs the cervical spine it does demonstrate severe multilevel spondylosis with evidence of myelopathy and myelomalacia within the cord. Does not appear to be advancing. In light of the patient's health status and surgical intervention being extensive. I think he is a very poor candidate for surgery. In fact he is stabilized at this time from a neurologic standpoint and the risks of surgery would clearly outweigh the benefits. Present on Admission?: Yes History of Present Illness Reason for Consultation: Neck and arm pain Attending Physician: Cezar Cuevas MD History of Present Illness This is a 64-year-old male well-known to me the presents to the hospital multiple medical issues difficulty with ambulation and arm symptoms. He is comfortable during my discussion with him at this time. He is struggling with excess alcohol consumption. Allergies Allergy/AdvReac Type Severity Reaction Status Date / Time erythromycin base Allergy Intermediate Rash Verified 03/15/20 13:52 Home Medications Home Medications Medication Instructions Recorded Confirmed Type diclofenac sodium [Voltaren] 4 g EXT QID #100 gm 05/27/19 03/15/20 Rx pantoprazole 40 mg tablet,delayed 40 mg PO QAM #30 tab 09/02/19 03/15/20 Rx release docusate sodium 100 mg capsule 100 mg PO BID PRN 01/02/20 03/15/20 History atorvastatin 10 mg tablet 10 mg PO DAILY #30 tab 01/09/20 03/15/20 Rx acetaminophen 1,000 mg PO TID #30 tab 03/21/20 Rx celecoxib [Celebrex] 100 mg PO DAILY #20 cap 03/21/20 Rx lidocaine 1 patch TRANSDERMAL QAM #1 ea 03/21/20 Rx methadone 10 mg PO TID #10 tab 03/21/20 Rx oxycodone 10 mg PO Q4 PRN #14 tab 03/21/20 Rx Patient History Medical History (Updated 03/28/20 @ 00:02 by Background Daemon) Abdominal pain Acidosis, lactic Alcohol intoxication Anxiety Arthritis Bilateral lower extremity edema Bilateral lower leg cellulitis Chronic, continuous use of opioids Constipation Degenerative cervical spinal stenosis Diarrhea Generalized abdominal pain Hearing difficulty Hyperlipidemia Left rib fracture Lumbar radicular pain Nausea Neuropathy Pneumonia Sepsis Spinal stenosis of lumbar region Stenosis of cervical spine with myelopathy Stomach ulcer Surgical History History of hernia repair History of oral surgery Family History Mother Anxiety Depression Cardiac disorder Hypertension Diabetes Mesothelioma Father Mesothelioma Diabetes Brother Diabetes Other No significant family history Social History Smoking Status: Former smoker Tobacco Type: Cigarettes Second Hand Exposure: No; Hx Alcohol Use: Yes Alcohol type: hard liquor Hx Substance Use: Yes Last Used Substance: Hours (ago) Last Used Substance Other:: 6 weeks ago per pt Substance Use Type Other:: methadone Preferred Language: Amharic Communication Ability: Effective Visual Impairment: Limited Hearing Ability: Normal Battery Plate Assembler Required: No Beliefs That Will Affect Care: Orthodoxy Orthodoxy Beliefs: mormon pt requesting to see physician vice president while in hospital. made primary RN aware marital status: Legally Current Living Situation: Alone Current Living Situation Comment: apartment Feels Safe at Home: Yes Assistive Devices: Glasses and Walker Physical Exam Physical Exam: On exam he does have reasonable strength testing I do not appreciate lower extremity clonus or Heather signs testing upper extremities.
== END 2020-03-21 16:00 | DRG 184 ==
LOC: ED 11:58 → SUATTDRO 15:43 → 2N 15:43

== ENCOUNTER 2020-05-07 06:10 | Inpatient (IN) ==
--- NOTE | 2020-04-20 12:54 | PAT Medication Instructions ---
Medication Instructions Date of Service April 20, 2020 Home Medications Medication Instructions Recorded pantoprazole 40 mg tablet,delayed 40 mg PO QAM #30 tab 09/02/19 release acetaminophen 500 mg tablet 1,000 mg PO TID #180 tab 04/06/20 gabapentin 300 mg capsule 300 mg PO TID #90 cap 04/17/20 lorazepam 0.5 mg tablet 0.5 mg PO BID PRN #20 tab 04/17/20 oxycodone 10 mg tablet 10 mg PO Q4H PRN #30 tab 04/18/20 pantoprazole 40 mg tablet,delayed release 40 mg PO QAM docusate sodium 100 mg capsule 100 mg PO BID calcium carbonate-vitamin D3 250 mg-125 unit tablet 1 tab PO BID mirtazapine 30 mg tablet 30 mg PO HS ondansetron HCl 4 mg tablet 4 mg PO Q4H PRN propranolol 10 mg tablet 5 mg PO BID thiamine HCl (vitamin B1) 100 mg tablet 100 mg PO QAM acetaminophen 500 mg tablet 1,000 mg PO TID atorvastatin 10 mg PO QPM celecoxib [Celebrex] 100 mg PO QAM diclofenac sodium [Voltaren] 4 g TOPICAL QID ciprofloxacin HCl 500 mg tablet 500 mg etodolac 200 mg capsule 200 mg PO Q12H PRN gabapentin 300 mg capsule 300 mg PO TID lorazepam 0.5 mg tablet 0.5 mg PO BID PRN naloxone 4 mg/actuation nasal spray 4 mg INTRANASAL .as directed sennosides 8.6 mg-docusate sodium 50 mg capsule 1 tab-cap PO QDL oxycodone 10 mg tablet 10 mg PO Q4H PRN Continue as directed ciprofloxacin HCl 500 mg tablet 500 mg naloxone 4 mg/actuation nasal spray 4 mg INTRANASAL .as directed ASK your surgeon for instructions celecoxib [Celebrex] 100 mg PO QAM etodolac 200 mg capsule 200 mg PO Q12H PRN STOP taking 24 hours before surgery diclofenac sodium [Voltaren] 4 g TOPICAL QID DO NOT take the morning of surgery docusate sodium 100 mg capsule 100 mg PO BID calcium carbonate-vitamin D3 250 mg-125 unit tablet 1 tab PO BID thiamine HCl (vitamin B1) 100 mg tablet 100 mg PO QAM sennosides 8.6 mg-docusate sodium 50 mg capsule 1 tab-cap PO QDL Take morning of surgery With a small sip of water, OTHERWISE NOTHING TO EAT OR DRINK AFTER MIDNIGHT: pantoprazole 40 mg tablet,delayed release 40 mg PO QAM ondansetron HCl 4 mg tablet 4 mg PO Q4H PRN (if needed) propranolol 10 mg tablet 5 mg PO BID acetaminophen 500 mg tablet 1,000 mg PO TID (if needed) gabapentin 300 mg capsule 300 mg PO TID lorazepam 0.5 mg tablet 0.5 mg PO BID PRN (if needed) oxycodone 10 mg tablet 10 mg PO Q4H PRN (if needed, may be taken up to four hours before surgery) Take evening before surgery docusate sodium 100 mg capsule 100 mg PO BID calcium carbonate-vitamin D3 250 mg-125 unit tablet 1 tab PO BID mirtazapine 30 mg tablet 30 mg PO HS ondansetron HCl 4 mg tablet 4 mg PO Q4H PRN (if needed) propranolol 10 mg tablet 5 mg PO BID acetaminophen 500 mg tablet 1,000 mg PO TID atorvastatin 10 mg PO QPM gabapentin 300 mg capsule 300 mg PO TID lorazepam 0.5 mg tablet 0.5 mg PO BID PRN (if needed) oxycodone 10 mg tablet 10 mg PO Q4H PRN (if needed) Other Notes If you have any questions please call us at [phone] or [phone] or [phone] or [phone]
--- NOTE | 2020-04-24 12:13 | Anesthesiology Consultation ---
Date of Service April 24, 2020 Assessment & Plan (1) Encounter for pre-operative examination: COVID Status: As of 04/24 assessment, patient denies travel to endemic area, known exposure/sick contacts, or symptoms of COVID19. Patient instructed that they and their household members must follow strict social distancing guidelines, wear a mask in public and avoid travel for 14 days prior to surgery. Preoperative COVID19 testing to be completed prior to surgery per surgeon's ar rangements. Patient made aware to self-isolate as much as possible between COVID testing and surgery. Resides in [facility] currently, no active cases of COVID-19. PCP Clearance 04/17/20 = "With surgery planned 05/07/[address] Álvarez (U). PATs on 04/24. Will f/u results prior to "clearing pt" Chart Review Chart Review: Acceptable Risk for Surgery (pending final PCP clearance) and Patient seen in Pre Admission Testing Teaching & Discussion Instructed NPO after midnight before surgery, except medications with 15 cc of water. Medication instructions provided according to the PAT guidelines. History Surgery Operation Date: 05/07/20 11:05 Proposed Procedures p C3-C5 Anterior Cervical Discectomy and Fusion, C3-C6 Corpectomy, Spinal Cord Monitoring - Leobardo Álvarez, Height/Weight Height: 5 ft 7 in Weight: 57.1 kg Allergies Allergy/AdvReac Type Severity Reaction Status Date / Time erythromycin base Allergy Intermediate Rash, Verified 04/10/20 13:22 throat swelling, difficulty breathing Medications Home Medications Medication Instructions Recorded Confirmed Last Taken pantoprazole 40 mg tablet,delayed 40 mg PO QAM #30 tab 09/02/19 04/17/20 Unknown release docusate sodium 100 mg capsule 100 mg PO BID 01/02/20 04/17/20 Unknown calcium carbonate-vitamin D3 250 1 tab PO BID 04/03/20 04/17/20 Unknown mg-125 unit tablet mirtazapine 30 mg tablet 30 mg PO HS 04/03/20 04/17/20 Unknown ondansetron HCl 4 mg tablet 4 mg PO Q4H PRN tab 04/03/20 04/17/20 Unknown propranolol 10 mg tablet 5 mg PO BID tab 04/03/20 04/17/20 Unknown thiamine HCl (vitamin B1) 100 mg 100 mg PO QAM 04/03/20 04/17/20 Unknown tablet acetaminophen 500 mg tablet 1,000 mg PO TID #180 tab 04/06/20 04/17/20 Unknown atorvastatin 10 mg PO QPM 04/10/20 04/17/20 Unknown celecoxib [Celebrex] 100 mg PO QAM 04/10/20 04/17/20 Unknown diclofenac sodium [Voltaren] 4 g TOPICAL QID 04/10/20 04/17/20 Unknown ciprofloxacin HCl 500 mg tablet 500 mg PO .COMPLEX tab 04/17/20 Unknown etodolac 200 mg capsule 200 mg PO Q12H PRN cap 04/17/20 04/17/20 Unknown gabapentin 300 mg capsule 300 mg PO TID #90 cap 04/17/20 Unknown lorazepam 0.5 mg tablet 0.5 mg PO BID PRN #20 tab 04/17/20 Unknown naloxone 4 mg/actuation nasal spray 4 mg INTRANASAL .as directed ea 04/17/20 04/17/20 Unknown sennosides 8.6 mg-docusate sodium 1 tab-cap PO QDL 04/17/20 04/17/20 Unknown 50 mg capsule oxycodone 10 mg tablet 10 mg PO Q4H PRN #30 tab 04/18/20 Unknown Past Medical History Medical History Anxiety Arthritis Chronic back pain Chronic, continuous use of opioids Degenerative disc disease Diverticular disease Hearing difficulty History of recent fall 02/2020 treated at [facility]. currently at [facility] in [place], [place] Hyperlipidemia Hypertension Neuropathy bilateral legs Osteoarthritis Pneumonia ~2017 Spinal stenosis of lumbar region Stenosis of cervical spine with myelopathy Stomach ulcer hx Venous reflux Diagnosed 10/2018 during admission for what was initially thought to be cellulitis. US showed venous reflux, and cellulitis-appearing symptoms felt 2/2 "waxing/waning symptoms depending on how long he has had his feet down." Exercise / Class Metabolic Activity III < 4 Walking/Shop/Light housework (Patient reports very limited functional status due to pain, reports only walking 25 yards max. +SOB with minimal exertion. Denies CP.) Past Family History Family History Mother Anxiety Depression Cardiac disorder Hypertension Diabetes Mesothelioma Father Mesothelioma Diabetes Brother Diabetes Other No significant family history Past Surgical History Surgical History Foreign body of right eye removal of a small piece of metal about ~1979 History of appendectomy History of bowel resection r/t diverticulitis History of colonoscopy History of esophagogastroduodenoscopy (EGD) History of left inguinal hernia repair History of oral surgery all teeth removed History of right inguinal hernia repair History of tonsillectomy Hx of umbilical hernia repair Past Anesthesia History No Hx of Anesthesia Complications and No Family Hx of Anesthesia Complications History of PONV No Hx of PONV and Hx of Motion Sickness Social History Smoking Status: Former smoker tobacco type: cigarettes Do You Dip or Chew Tobacco: No Smoking End Date: 1979 Hx Alcohol Use: No Alcohol Intake Frequency Comment: no ETOH intake x months, was previously abusing ETOH for pain control Hx Substance Use: Yes substance use type: opiates, prescription drug and other 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 +SOB with minimal exertion, pt feels very deconditioned. Physical Exam Vital Signs BP: 112/81 P: 83bpm SPO2: 94% RA T: 97.8 F R: 20 Constitutional Euvolemic. Thin, elderly-appearing, deconditioned. ENMT Mouth: + edentulous and + small oral opening Thyromental Distance: > or= 3.5 Finger Breadths Mallampati Class: I Neck + limited neck extension (pain with full extension) and + facial hair (short scruffy mcnair) Respiratory normal respiratory effort Auscultation: lungs clear to auscultation bilaterally Cardiovascular Rate/Rhythm: regular rate and regular rhythm Heart Sounds: no murmur Vessels: no carotid bruit Extremities: no edema Testing Laboratory Results PT 9.8 Seconds (9.0-12.0) 04/24/20 12:31 INR 0.9 (0.9-1.1) 04/24/20 12:31 APTT 24.7 Seconds (21.0-31.0) 04/24/20 12:31 Blood Type O Positive 04/24/20 12:31 Antibody Screen NEGATIVE 04/24/20 12:31 03/21/20 WBC: 6.30 H/H: 11.6/35.3 PLATELETS: 216 SODIUM: 139 POTASSIUM: 4.2 CHLORIDE: 105 CO2: 27 BUN: 24 CREATININE: 0.74 GLUCOSE: 106 Urine culture 04/02/20 = negative/no growth Electrocardiogram Date: 04/17/20 Findings: + ST @ (106bpm) Chest X-Ray Date: 02/17/20 Findings: + NAD
[2020-04-24 12:59] LABS: INR 0.9 (0.9-1.1); Partial Thromboplastin Ratio 0.9; Partial Thromboplastin Time 24.7 Seconds (21.0-31.0); Prothrombin Time 9.8 Seconds (9.0-12.0)
[~2020-05-07 06:10] MED LIST: ACETAMINOPHEN 500 MG TAB PO SCH; CeleBREX 200 MG CAP PO SCH; GABAPENTIN 300 MG CAP PO SCH; LR 15ML/HR IV SCH; ceFAZolin 1000MG 1,000 MG/7.5 ML SYR IV SCH
[2020-05-07] MEDS ORDERED: PROPOFOL IV EMULSION 10 MG/ML 100 ML VIAL IV ONE (07:01)
[2020-05-07] MEDS ORDERED: fentaNYL citrate 100 MCG/2 ML VIAL ONE (07:04)
[2020-05-07] MEDS ORDERED: DEXAMETHASONE SOD INJ 4 MG/ML VIAL ONE (07:04)
[2020-05-07] MEDS ORDERED: SUCCINYLCHOLINE CHLORIDE 20 MG/ML 10 ML VIAL IV ONE (07:04)
[2020-05-07] MEDS ORDERED: ROCURONIUM BROMIDE 10 MG/ML 5 ML VIAL IV ONE (07:04)
[2020-05-07] MEDS ORDERED: PROPOFOL IV EMULSION 10 MG/ML 20 ML VIAL IV ONE (07:04)
[2020-05-07] MEDS ORDERED: LIDOCAINE HCL 2% 2 ML VIAL/AMP(20MG/ML) INFIL ONE (07:04)
[2020-05-07] MEDS ORDERED: ONDANSETRON INJ 2 MG/ML 2 ML VIAL ONE (07:04)
[2020-05-07] MEDS ORDERED: BACITRACIN INJ 50,000 UNIT VIAL ONE (07:26)
[2020-05-07] MEDS ORDERED: LABETALOL HCL IV 5 MG/ML 20ML IV PRN (07:27)
[2020-05-07] MEDS ORDERED: NALOXONE HCL 0.4 MG/1 ML VIAL/CARP IV PRN ×2 (07:27→11:24)
[2020-05-07] MEDS ORDERED: ATROPINE SULFATE 0.1 MG/ML 10ML SYR IV PRN (07:27)
[2020-05-07] MEDS ORDERED: ONDANSETRON INJ 2 MG/ML 2 ML VIAL IV PRN ×2 (07:27→11:24)
[2020-05-07] MEDS ORDERED: ePHEDrine sulfate 50 MG/ML AMP IV PRN (07:27)
[2020-05-07] MEDS ORDERED: FLUMAZENIL 0.1 MG/1 ML 10 ML VIAL IV PRN (07:27)
[2020-05-07] MEDS ORDERED: PROMETHAZINE HCL 12.5 MG in SODIUM CHLORIDE 0.9% 50 ML IV PRN ×2 (07:27→11:24)
--- NOTE | 2020-05-07 07:31 | History & Physical Report ---
Date of Service May 07, 2020 Assessment & Plan (1) Myelopathy concurrent with and due to spinal stenosis of cervical region: Admission and Anticipated Discharge Date Admission Date: C3-C5 anterior cervical discectomy and fusion, C3-C6 corpectomy History of Present Illness Chief Complaint: Neck and bilateral arm pain Primary Care Provider: Leslie Camejo MD This is a 64-year-old male who presents with neck and arm symptoms. After failing course of nonoperative care is here for surgical intervention. Allergies Allergy/AdvReac Type Severity Reaction Status Date / Time erythromycin base Allergy Intermediate Rash, Verified 05/07/20 06:39 throat swelling, difficulty breathing Home Medications Home Medications Medication Instructions Recorded Confirmed Type pantoprazole 40 mg tablet,delayed 40 mg PO QAM #30 tab 09/02/19 05/07/20 Rx release docusate sodium 100 mg capsule 100 mg PO BID 01/02/20 05/07/20 History calcium carbonate-vitamin D3 250 1 tab PO BID 04/03/20 05/07/20 History mg-125 unit tablet mirtazapine 30 mg tablet 30 mg PO HS 04/03/20 05/07/20 History ondansetron HCl 4 mg tablet 4 mg PO Q4H PRN tab 04/03/20 05/07/20 History propranolol 10 mg tablet 5 mg PO BID tab 04/03/20 05/07/20 History thiamine HCl (vitamin B1) 100 mg 100 mg PO QAM 04/03/20 05/07/20 History tablet acetaminophen 500 mg tablet 1,000 mg PO TID #180 tab 04/06/20 05/07/20 Rx atorvastatin 10 mg PO QPM 04/10/20 05/07/20 History celecoxib [Celebrex] 100 mg PO QAM 04/10/20 05/07/20 History diclofenac sodium [Voltaren] 4 g TOPICAL QID 04/10/20 05/07/20 History ciprofloxacin HCl 500 mg tablet 500 mg PO .COMPLEX tab 04/17/20 05/07/20 History etodolac 200 mg capsule 200 mg PO Q12H PRN cap 04/17/20 05/07/20 History gabapentin 300 mg capsule 300 mg PO TID #90 cap 04/17/20 05/07/20 Rx lorazepam 0.5 mg tablet 0.5 mg PO BID PRN #20 tab 04/17/20 Rx sennosides 8.6 mg-docusate sodium 1 tab-cap PO QDL 04/17/20 05/07/20 History 50 mg capsule oxycodone 10 mg tablet 10 mg PO Q4H PRN #30 tab 05/01/20 05/07/20 Rx Past Med/Surg History Medical History (Updated 05/07/20 @ 07:31 by Leobardo Álvarez DO) Anxiety Arthritis Chronic back pain Chronic, continuous use of opioids Degenerative disc disease Diverticular disease Hearing difficulty History of recent fall 02/2020 treated at [facility]. currently at [facility] in [place], [place] Hyperlipidemia Hypertension Neuropathy bilateral legs Osteoarthritis Pneumonia ~2017 Spinal stenosis of lumbar region Stenosis of cervical spine with myelopathy Stomach ulcer hx Venous reflux Diagnosed 10/2018 during admission for what was initially thought to be cellulitis. US showed venous reflux, and cellulitis-appearing symptoms felt 2/2 "waxing/waning symptoms depending on how long he has had his feet down." Surgical History Foreign body of right eye removal of a small piece of metal about ~1979 History of appendectomy History of bowel resection r/t diverticulitis History of colonoscopy History of esophagogastroduodenoscopy (EGD) History of left inguinal hernia repair History of oral surgery all teeth removed History of right inguinal hernia repair History of tonsillectomy Hx of umbilical hernia repair Family History Mother Anxiety Depression Cardiac disorder Hypertension Diabetes Mesothelioma Father Mesothelioma Diabetes Brother Diabetes Other No significant family history Social History Smoking Status: Former smoker Tobacco Type: Cigarettes Smoking End Date: 1979; Second Hand Exposure: No; Do You Dip or Chew Tobacco: No; Tobacco Cessation Education Requested by Patient: No Hx Alcohol Use: No Hx Substance Use: Yes Last Used Substance: Hours (ago) Substance Use Type Other:: methadone and oxycodone - states he has not had methadone since 04/06/20 Preferred Language: German Communication Ability: Effective Visual Impairment: Limited Hearing Ability: Normal Coke Burner Required: No Beliefs That Will Affect Care: Jewish Jewish Beliefs: gnosticist pt requesting to see endocrinology nurse while in hospital. made primary RN aware marital status: Legally Current Living Situation: Alone Current Living Situation Comment: apartment Other Information That Helps Us Care for You: No Feels Safe at Home: Yes Safety Concerns: Feels Safe At This Time Assistive Devices: Glasses and Walker Physical Exam Physical Exam: Patient's alert and oriented Heart regular rate and rhythm Lungs clear to auscultation Results & Data ([facility]) Vital Signs (Past 12 Hours) Vital Signs Pulse Resp BP Pulse Ox 05/07/20 06:51 84 18 122/94 95
--- NOTE | 2020-05-07 07:39 | History & Physical Bridge Note ---
Date of Service May 07, 2020 History & Physical Bridge Note I have examined the patient, reviewed the History & Physical and in the interval since the performance of the History & Physical I have noted the following changes of clinical significance: no changes noted
[2020-05-07] MEDS ORDERED: HYDROmorphone INJ 2 MG/ML SYR/VIAL ONE (08:39)
[2020-05-07] MEDS ORDERED: NEOSTIGMINE METHYLSULFATE 1 MG/ML 10ML VIAL ONE (09:18)
[2020-05-07] MEDS ORDERED: GLYCOPYRROLATE 0.2 MG/ML VIAL ONE (09:18)
[2020-05-07] MEDS ORDERED: FLOSEAL HEMOSTATIC MATRIX 10ML TOP ONE (09:43)
--- NOTE | 2020-05-07 09:50 | Operative Report ---
Post Operative Report Pre & Post Diagnosis Operation Date: 05/07/20 07:45 Pre-Op Diagnosis: Myelopathy; Spinal Stenosis, Cervical Region Post-Op Diagnosis: Myelopathy; Spinal Stenosis, Cervical Region I identified the patient and participated in the time-out.: Yes Procedure Operation Date: 05/07/20 07:45 Actual Procedures #1 anterior cervical corpectomy with bilateral foraminotomies C5. #2 anterior cervical discectomy with bilateral foraminotomies C3-C4. #3 anterior cervical arthrodesis C3-C4 and C4-C6. #4 placement peek cage 6 mm in height at C3-4 and 23 mm in height at C4-C6. #5 placement locally harvested morselized autograft combined with DBM and the interbody cages. #6 application of 5 complete and screws from C3-C6. Surgeon Leobardo Álvarez, DO Collision Repairer Juanita Ervin Estimated Blood Loss 30 Findings Consistent with Post-Op Diagnosis Specimens None Indications This is a 64-year-old male who presents with above-mentioned diagnosis after failing stents course of nonoperative care and having a steady decline in status underwent the above-mentioned procedure. Description of Procedure Patient was met with identified informed consent obtained. Patient was then taken to the operative suite underwent an patient placed in a supine position on the Girish table head Ortega cigar head perforator. All bony prominences well-padded eyes inspected to ensure no external pressure placed upon the. This point the anterior cervical spine was prepped and draped in the normal sterile fashion. With the assistance of fluoroscopy identified the C for C5 displacement transverse incision was placed along the right anterior aspect of the cervical spinal lines region. Sharp dissection with assistance of bipolar electrocautery was performed down to and exposing the anterior cervical spine from C3-C6. Self-retaining retractors placed. Then performed a complete discectomy of C4-5 out to the uncovertebral joints. Bilaterally followed by C5-C6. [place] distracting pins were then placed in C4 and C6 to distract across the C5 vertebral body. A complete corpectomy of C5 was then performed including removal of all posterior annular fibers longitudinal ligament bilateral foraminotomies for complete decompression. Endplates were then burred to subcortical bleeding bone and a 23 mm peek cage filled with locally harvested morselized autograft and DBM tapped in position. Distracting apparatus was removed and I proceeded the C3-C4. Again complete discectomy was performed out to the uncovertebral joints bilaterally. Bilateral foraminotomies performed. Endplates were then burred to subcortical bleeding bone and a 7 mm peek cage filled with locally harvested morselized autograft and DBM tapped in position. Distracting apparatus was removed all anterior osteophytes burred to a smooth cortical surface and a 5 complete and screws applied with the assistance of fl uoroscopy. The incision was then copiously irrigated explored to ensure no damage to surrounding structures remaining bleeding. 10 round NIDIA drain inserted. The incision was then closed with 2 Vicryl in the fashion of 4 Monocryl for final skin closure. Steri-Strip sterile dressings placed. Patient was then taken to PACU stable condition. Please note spinal cord monitoring was utilized at the procedure no changes noted. Lastly Juanita Ervin was present at the entire surgery involved the patient positioning complex portions of the surgery and final skin closure. I attest to the content of the Intraoperative Record and any orders documented therein. Any exceptions are noted below.
[2020-05-07] MEDS: fentaNYL citrate 100 MCG/2 ML VIAL IV PRN ×4 (10:12→10:27)
[2020-05-07] MEDS: HYDROmorphone INJ 1 MG/ML SYRINGE IV PRN ×7 (10:32→22:35)
--- NOTE | 2020-05-07 10:39 | Fluoroscopy Report ---
FL cervical 2-3V CLINICAL HISTORY: Cervical discectomy and fusion. COMPARISON STUDY: MRI of the cervical spine March 19, 2020. FLUOROSCOPY TIME: 7 seconds. FLUOROSCOPIC IMAGES: 2 FINDINGS: Images demonstrate a C5 corpectomy and C3-C6 anterior discectomy and fusion. Hardware is in intact. Endotracheal tube and surgical drain are noted. IMPRESSION: Fluoroscopy provided during C5 corpectomy and C3-C6 anterior discectomy and fusion. ACT 112: Negative or not required by law. Electronically signed by: Mode Real M.D. 05/07/2020 10:38 AM
--- NOTE | 2020-05-07 11:09 | Anesthesiology Progress Note ---
Date of Service May 07, 2020 Anesthesia Post Procedure Vital Signs Vital Signs: Temp Pulse Pulse Resp BP BP Pulse Ox 05/07/20 11:00 90 17 122/89 95 05/07/20 10:50 89 17 133/87 94 05/07/20 10:40 89 18 122/85 96 05/07/20 10:30 86 25 H 133/91 96 05/07/20 10:20 91 H 14 131/94 95 05/07/20 10:10 92 H 21 134/94 96 05/07/20 10:00 36.0 C L 86 18 121/89 93 05/07/20 06:51 84 18 122/94 95 Pain Intensity Lower Back: Pain Intensity: 8 Right Anterior Neck: Pain Intensity: 4 Transfer of Care Handoff Completed per policy Notes Mental Status: alert / awake / arousable Patient Amnestic to Procedure: Yes Nausea / Vomiting: adequately controlled Pain: adequately controlled Airway Patency, RR, SpO2: stable & adequate BP & HR: stable & adequate Hydration State: stable & adequate Anesthetic Complications: no major complications apparent
[2020-05-07] MEDS ORDERED: FAMOTIDINE 20 MG TAB PO PRN (11:24)
[2020-05-07] MEDS ORDERED: DO NOT ADMINISTER PNEUMOCOCCAL VACCINE PRN (11:24)
[2020-05-07] MEDS ORDERED: ALUMINUM/MAGNESIUM SUSP 30 ML UDC PO PRN (11:24)
[2020-05-07] MEDS ORDERED: HYDROmorphone INJ 0.5 MG/0.5 ML SYR IV PRN (11:24)
[2020-05-07] MEDS ORDERED: traMADol HCL 50 MG TABLET PO PRN (11:24)
[2020-05-07] MEDS ORDERED: LORazepam 0.5 MG/1 ML VIAL IV PRN (11:24)
[2020-05-07] MEDS ORDERED: ACETAMINOPHEN 1,000 MG/100 ML VIAL IV PRN (11:24)
[2020-05-07] MEDS ORDERED: hydrOXYzine HCl 25 MG TAB PO PRN (11:24)
[2020-05-07] MEDS ORDERED: ONDANSETRON 4 MG OD TAB PO PRN (11:24)
[2020-05-07] MEDS ORDERED: ACETAMINOPHEN 500 MG TAB PO PRN (11:24)
[2020-05-07] MEDS ORDERED: MAGNESIUM HYDROXIDE SUSP 30 ML UDC PO PRN (11:24)
[2020-05-07] MEDS ORDERED: DEXAMETHASONE SOD PHOSPHATE 8 MG in SYRINGE 0 ML IV PRN (11:24)
[2020-05-07] MEDS ORDERED: diphenhydrAMINE Capsule 25 MG CAP PO PRN (11:24)
[2020-05-07] MEDS ORDERED: METOCLOPRAMIDE HCL INJ 5 MG/ML 2 ML VIAL IV PRN (11:24)
[2020-05-07] MEDS ORDERED: SOD PHOSPHATE/SOD BIPHOSPHATE ENEMA 132 ML BTL PR PRN (11:24)
[2020-05-07] MEDS ORDERED: RACEPINEPHRINE 2.25% NEBU SOLN 0.5 ML VIAL INH PRN (11:24)
[2020-05-07] MEDS ORDERED: DO NOT ADMINISTER FLU VACCINE PRN (11:24)
--- NOTE | 2020-05-07 11:59 | Hospitalist Consultation ---
Date of Consultation May 07, 2020 Assessment & Plan (1) Myelopathy concurrent with and due to spinal stenosis of cervical region: - Pain management, bowel regimen per the primary team - no chemical anticoagulation in light of spinal surgery - PT/OT consults, pt is planning on outpatient therapy - Follow am CBC to monitor for acute blood loss - follows with pain management- chronically on oxycodone 5-10 mg q6H prn, celecoxib, voltaren gel, etodolac 200 mg Q12H - holding nsaids (2) Hypertension: - Cont propranolol 5 mg BID (3) Hyperlipidemia: - Cont atorvastatin 10 mg daily (4) Neuropathy: - Hx of such, bilateral legs, continue gapabentin 300 mg TID (5) Recurrent falls: - Hx of such, will need PT/OT once cleared by ortho surg (6) Arthritis: - Stable, continue pain medication as above, may reintroduce nsaids once ok with ortho surgery. (7) Chronic pain: - Secondary to DJD as above (8) Opioid dependence: (9) Alcohol abuse: - Continue thiamine, MVI and 3g or less of tylenol on daily basis - History of such, see HPI (10) Restless legs: - May continue remeron 30 mg HS (11) Anxiety: -stable (12) Depression: - Stable DVT ppx -scds, teds CODE: Full Dispo: From home, likely to remain in the hospital x 1-2 days Thank you for involving us in the care of Mr. Fleming. Please do not hesitate to call with questions or concerns. At this time medicine service will follow along. Supervising Physician Co-Signing Physician Notes I personally saw and examined the patient. I verified all parkinson points and agree with GILDA Ramirez with the following exceptions and/or additions: 64 year old post op. Stable chronic medical conditions. No acute medical needs identified at this time. Continue his routine medications. History of Present Illness Attending Physician: Leobardo Álvarez DO History of Present Illness This is a 64 yo M with PMhx of spinal stenosis of lumbar spine, DJD and spinal stenosis of cervical spine, chronic back pain, opioid dependence, recent falls, venous insufficiency, HTN, HLD, osteoarthritis, neuropathy, anxiety and depression who presents for elective cervical spine foraminotomies by Dr. Álvarez on 05/07/2020. He reports doing very well and is optimistic but reports his pain is starting to worsen. He feels this in the right side of his neck going towards the shoulder. The nurse at [facility] has just given a dose of dilaudid. He has a drain in place in his neck from cervical spine surgery but didn't realize it, he denies any other acute complaints. Pt notes last time he drank was many years ago, but then reports when pain management would no longer prescribe him medications he tried experimenting with alcohol and ended up falling, but this was a while ago. He does not drink any alcohol now. Pt report currently resides at assisted living facility in [facility]. He has an apartment in the [facility] in [place] and is hopeful to be able to return there eventually. Allergies Allergy/AdvReac Type Severity Reaction Status Date / Time erythromycin base Allergy Intermediate Rash, Verified 05/07/20 06:39 throat swelling, difficulty breathing Home Medications Home Medications Medication Instructions Recorded Confirmed Type pantoprazole 40 mg tablet,delayed 40 mg PO QAM #30 tab 09/02/19 05/07/20 Rx release docusate sodium 100 mg capsule 100 mg PO BID 01/02/20 05/07/20 History calcium carbonate-vitamin D3 250 1 tab PO BID 04/03/20 05/07/20 History mg-125 unit tablet mirtazapine 30 mg tablet 30 mg PO HS 04/03/20 05/07/20 History ondansetron HCl 4 mg tablet 4 mg PO Q4H PRN tab 04/03/20 05/07/20 History propranolol 10 mg tablet 5 mg PO BID tab 04/03/20 05/07/20 History thiamine HCl (vitamin B1) 100 mg 100 mg PO QAM 04/03/20 05/07/20 History tablet acetaminophen 500 mg tablet 1,000 mg PO TID #180 tab 04/06/20 05/07/20 Rx atorvastatin 10 mg PO QPM 04/10/20 05/07/20 History celecoxib [Celebrex] 100 mg PO QAM 04/10/20 05/07/20 History diclofenac sodium [Voltaren] 4 g TOPICAL QID 04/10/20 05/07/20 History ciprofloxacin HCl 500 mg tablet 500 mg PO .COMPLEX tab 04/17/20 05/07/20 History gabapentin 300 mg capsule 300 mg PO TID #90 cap 04/17/20 05/07/20 Rx lorazepam 0.5 mg tablet 0.5 mg PO BID PRN #20 tab 04/17/20 Rx sennosides 8.6 mg-docusate sodium 1 tab-cap PO QDL 04/17/20 05/07/20 History 50 mg capsule oxycodone 10 mg tablet 10 mg PO Q4H PRN #30 tab 05/01/20 05/07/20 Rx oxycodone 5 mg PO Q6H PRN #20 tab 05/07/20 Rx Patient History Medical History (Updated 05/07/20 @ 11:56 by Krystal Ramirez PA-C) Anxiety Arthritis Chronic back pain Chronic, continuous use of opioids Degenerative disc disease Diverticular disease Hearing difficulty History of recent fall 02/2020 treated at [facility]. currently at [facility] in [place], [place] Hyperlipidemia Hypertension Neuropathy bilateral legs Osteoarthritis Pneumonia ~2017 Spinal stenosis of lumbar region Stenosis of cervical spine with myelopathy Stomach ulcer hx Venous reflux Diagnosed 10/2018 during admission for what was initially thought to be cellulitis. US showed venous reflux, and cellulitis-appearing symptoms felt 2/2 "waxing/waning symptoms depending on how long he has had his feet down." Surgical History Foreign body of right eye removal of a small piece of metal about ~1979 History of appendectomy History of bowel resection r/t diverticulitis History of colonoscopy History of esophagogastroduodenoscopy (EGD) History of left inguinal hernia repair History of oral surgery all teeth removed History of right inguinal hernia repair History of tonsillectomy Hx of umbilical hernia repair Family History Mother Anxiety Depression Cardiac disorder Hypertension Diabetes Mesothelioma Father Mesothelioma Diabetes Brother Diabetes Other No significant family history Social History Smoking Status: Former smoker Tobacco Type: Cigarettes Smoking End Date: 1979; Second Hand Exposure: No; Do You Dip or Chew Tobacco: No; Tobacco Cessation Education Requested by Patient: No Hx Alcohol Use: No Hx Substance Use: Yes Last Used Substance: Hours (ago) Substance Use Type Other:: methadone and oxycodone - states he has not had methadone since 04/06/20 Preferred Language: Vietnamese Communication Ability: Effective Visual Impairment: Limited Hearing Ability: Normal Carbon Cleaner Required: No Beliefs That Will Affect Care: Jew Jew Beliefs: amish pt requesting to see while in hospital. made primary RN aware marital status: Single Current Living Situation: Alone Current Living Situation Comment: apartment Other Information That Helps Us Care for You: No Feels Safe at Home: Yes Safety Concerns: Feels Safe At This Time Assistive Devices: None Review of Systems Review of Systems: Constitutional: No fever, sweats or chills Eyes: No diplopia, no worsening or blurred vision ENT: normal hearing, no trouble swallowing Neck: Pain as per HPI Respiratory: No cough, sputum, dyspnea at rest or on exertion Cardiovascular: No chest pain, tightness or palpitations Abdomen: No pain, nausea, vomiting, diarrhea or constipation Musculoskeletal: No joint pain, calf pain, swelling Back: + Lumbar spine chronic pain Neurologic: No weakness, numbness/tingling, or balance problems, + uses a cane for ambulation Psychiatric: No anxiety or depression Skin: No rash or itch Physical Exam Physical Exam: General: awake, alert, no apparent distress, + thin BMI 21 Head: Normocephalic, atraumatic ENT: PERRL, EOMI, no pharyngeal exudate, mucous membranes moist Neck: Dressing appears C/D/I, anterior drain, no surrounding ecchymosis or erythema, patient able to move neck from side to side without difficulty can move chin towards chest, + pain with this motion, Chest: Clear to auscultation, on room air, no adventitious breath sounds Cardiac: Regular rate and rhythm, no murmur, no JVD, normal peripheral pulses, good capillary refill Abdominal: NABS x 4 quadrants, soft, nondistended, nontender to palpation, no rebound or guarding Extremities: Normal inspection, no peripheral edema or erythema, calfs nontender to palpation Psych: Normal mood and affect Neuro: AAO x 3, strength intact bilaterally and rated 5/5, no motor deficits, speech is clear, no peripheral sensory deficits Results & Data Results & Data ([facility]) Vital Signs (Past 12 Hours) Vital Signs Temp Pulse Pulse Resp BP BP Pulse Ox 05/07/20 11:24 84 17 96 05/07/20 11:10 36.4 C L 87 17 131/89 95 05/07/20 11:00 90 17 122/89 95 05/07/20 10:50 89 17 133/87 94 05/07/20 10:40 89 18 122/85 96 05/07/20 10:30 86 25 H 133/91 96 05/07/20 10:20 91 H 14 131/94 95 05/07/20 10:10 92 H 21 134/94 96 05/07/20 10:00 36.0 C L 86 18 121/89 93 05/07/20 06:51 84 18 122/94 95 PG Care Time/CCT Total # of Minutes Spent Total Time Spent with Patient: Total time spent is greater than 50% in coordination of care (as documented) at patient's floor/unit and/or counseling patient: Coding Level of Care Code 19653 Inpt Consult Level 3 Diagnoses Myelopathy concurrent with and due to spinal stenosis of cervical region M48.02; G99.2 Hypertension I10 Hyperlipidemia E78.5 Neuropathy G62.9 Recurrent falls R29.6 Arthritis M19.90 Chronic pain G89.4 Chronic pain type: chronic pain syndrome Opioid dependence F11.20 Alcohol abuse F10.10 Restless legs G25.81 Anxiety F41.9 Depression F32.0 Active/Remission status: currently active Depression Type: major depressive disorder Major depression episode severity: mild Major depression recurrence: single episode (1) Chronic pain Chronic pain type: chronic pain syndrome Qualified Code(s): G89.4 - Chronic pain syndrome (2) Depression Active/Remission status: currently active Depression Type: major depressive disorder Major depression episode severity: mild Major depression recurrence: single episode Qualified Code(s): F32.0 - Major depressive disorder, single episode, mild
[2020-05-07] MEDS: LACTATED RINGER'S 1,000 ML IV SCH ×2 (12:18→20:56)
[2020-05-07] MEDS: oxyCODONE HCL IR 5 MG TAB (IMMEDIATE RELEASE) PO PRN ×3 (14:21→20:49)
[2020-05-07] MEDS: GABAPENTIN 300 MG CAP PO SCH ×2 (14:22→20:53)
[2020-05-07] MEDS: ceFAZolin 1000MG 1,000 MG/7.5 ML SYR IV SCH ×2 (16:15→23:51)
[2020-05-07] MEDS: CALCIUM 600MG + VIT D 400 IU TAB PO SCH (20:50)
[2020-05-07] MEDS: DOCUSATE SODIUM 100 MG CAP PO SCH (20:51)
[2020-05-07] MEDS: PROPRANOLOL HCL 10 MG TAB PO SCH (20:51)
[2020-05-07] MEDS ORDERED: ATORVASTATIN 10 MG TAB PO SCH (21:00)
[2020-05-07] MEDS ORDERED: DOCUSATE SODIUM/SENNA 50/8.6MG TAB PO SCH (21:00)
[2020-05-07] MEDS ORDERED: MIRTAZAPINE TAB 15 MG TAB PO SCH (21:00)
[2020-05-07] MEDS: LORazepam 0.5 MG TAB PO PRN (23:51)
[2020-05-08] MEDS: HYDROmorphone INJ 1 MG/ML SYRINGE IV PRN ×5 (01:59→14:44)
[2020-05-08] MEDS: oxyCODONE HCL IR 5 MG TAB (IMMEDIATE RELEASE) PO PRN ×2 (06:43→10:13)
[2020-05-08] MEDS: CALCIUM 600MG + VIT D 400 IU TAB PO SCH (08:19)
[2020-05-08] MEDS: PROPRANOLOL HCL 10 MG TAB PO SCH (08:20)
[2020-05-08] MEDS: DOCUSATE SODIUM 100 MG CAP PO SCH (08:20)
[2020-05-08] MEDS: GABAPENTIN 300 MG CAP PO SCH ×2 (08:21→13:19)
[2020-05-08] MEDS: POLYETHYLENE (MIRALAX) 17 GM PACK PO SCH ×2 (08:22→11:53)
--- NOTE | 2020-05-08 08:39 | Orthopedic Progress Note ---
Date of Service May 08, 2020 Assessment & Plan (1) Myelopathy concurrent with and due to spinal stenosis of cervical region: Admission and Anticipated Discharge Date Admission Date: May 07, 2020 At this time we will anticipate discharge to rehab today if he is accepted. See him in my office in 2 weeks. Subjective Patient is comfortable swallowing well. No hoarseness. Still tingling in his arms. Physical Exam Physical Exam: On exam he is alert and oriented. He has good strength testing the upper extremities. Neck is supple without appreciable swelling. Results & Data ([facility]) Vital Signs (Past 12 Hours) Vital Signs Temp Pulse Pulse Resp BP Pulse Ox Pulse Ox 05/08/20 07:53 36.5 C 94 H 18 112/71 93 05/08/20 07:00 75 16 95 05/08/20 06:26 36.8 C 77 14 122/82 100 05/08/20 04:25 36.6 C 78 14 124/78 97 05/08/20 03:20 77 16 97 05/08/20 02:20 36.7 C 78 12 115/76 96 05/08/20 00:43 36.7 C 88 12 121/78 97 05/07/20 23:29 91 H 14 94 05/07/20 22:29 36.8 C 92 H 12 116/76 96 05/07/20 21:30 92 Pulse Ox 05/08/20 07:53 05/08/20 07:00 05/08/20 06:26 05/08/20 04:25 05/08/20 03:20 05/08/20 02:20 05/08/20 00:43 05/07/20 23:29 05/07/20 22:29 05/07/20 21:30 92
[2020-05-08] MEDS ORDERED: THIAMINE HCL 100 MG TAB PO SCH (09:00)
[2020-05-08] MEDS ORDERED: PANTOprazole 40 MG TAB PO SCH (09:00)
[2020-05-08] MEDS ORDERED: DEXAMETHASONE SOD PHOSPHATE 6 MG in SYRINGE 0 ML IV SCH (10:00)
[2020-05-08 10:32] VITALS: BP 128/89; TEMP 98.1; O2SAT 96
[2020-05-08 11:15] VITALS: PULSE 94
[2020-05-08] MEDS ORDERED: DOCUSATE SODIUM/SENNA 50/8.6MG TAB PO SCH ×2 (11:30→12:00)
[2020-05-08] MEDS: LORazepam 0.5 MG TAB PO PRN (11:53)
[2020-05-09] MEDS ORDERED: bisacodyL 10 MG SUPP PR PRN (09:51)
--- NOTE | 2020-05-09 11:09 | Discharge Summary ---
Date of Service May 09, 2020 Admission HPI Per Admitting Provider This is a 64-year-old male who presents with neck and arm symptoms. After failing course of nonoperative care is here for surgical intervention. Principal Diagnosis Cervical spinal stenosis with myeloradiculopathy Discharge Data Allergies Allergy/AdvReac Type Severity Reaction Status Date / Time erythromycin base Allergy Intermediate Rash, Verified 05/07/20 06:39 throat swelling, difficulty breathing Consultations 05/07/20 11:24 Consult Hospitalist Routine Procedures Performed Operation Date: 05/07/20 07:45 Actual Procedures p C3-C5 Anterior Cervical Discectomy and Fusion, C3-C6 Corpectomy, Spinal Cord Monitoring(Not Applicable) - Leobardo Álvarez DO Ordered Studies 05/07/20 07:45 FL cervical 2-3V Routine FL fluoroscopy <1hr Routine Hospital Course (1) Myelopathy concurrent with and due to spinal stenosis of cervical region: Patient underwent anterior cervical corpectomy ACDF tolerated so was taken to orthopedic floor possibly. Postop day 1 he was swallowing well arm symptoms improved pain well controlled NIDIA drain decreasing appropriately. Subsequent discharge to rehab. Discharge orders instructions from the chart for further review. Total Time Total Time Spent Total Time Spent (In Minutes): 20 minutes Discharge Plan Discharge Items Patient Disposition: Transfer Inpatient Rehab Fac Reason For Visit: Spinal Stenosis, Cervical Region Discharge Diagnosis: Cervical spinal stenosis with myeloradiculopathy Activity: As commented below Non-emergency contact: Primary Care Provider Call non-emergency contact if: you have any medication questions Follow-up/Referrals: Leslie Camejo MD [Primary Care Provider] - Diet: Regular Addtl Attending Provider Instructions: ACTIVITY RECOMMENDATIONS: SELF CARE INSTRUCTIONS AFTER CERVICAL FUSIONS 1. No smoking. Smoking drastically decreases the chance of a solid fusion. 2. No bending, lifting more than 5 pounds, or twisting (roll like a log when turning in bed). 3. You may shower 3 days after surgery. Thoroughly dry wound. Do not soak in the tub. 4. Cervical collar: Must be worn at all times including sleeping. You may remove the brace only to bath, eat and if you are sitting in a recliner. 5. Please walk as much as you can for exercise. Gradually increase the distance that you walk as your endurance increases. SPECIAL CARE INSTRUCTIONS: VERY IMPORTANT TO READ AND REVIEW A. Do not take any anti-inflammatory medications (i.e. Indocin, Advil, Aspirin, Naprosyn, Aleve, Motrin, etc.) as these may inhibit the chance of a solid fusion. Tylenol is okay to take. B. Your surgical incision has been closed with a cosmetic suture under the skin that will dissolve in about 6 weeks. In 14 days, you can use a pair of clean scissors and cut the suture that is left outside of the skin at the ends of your incision. C. Complications are uncommon, but please contact us if you have any signs or symptoms of: 1. wound infection (fever higher than 102.5 degrees F, redness, separation of wound, drainage, or increasing pain from the incision) 2. blood clots in legs (pain, swelling, redness and warmth in legs) 3. urinary tract infection (fever higher than 102.5 degrees, burning upon urination or increased frequency of urination) 4. nerve problems (inability to walk on your toes or heels, numbness, loss of bowel or bladder control) 5. any other symptoms that concern you. D. Please call the office at if you have any concerns or questions about your operation or recovery. MANAGING PAIN AFTER SPINAL SURGERY 1. Narcotic medication is intended for short-term use and will be provided for surgical pain. Surgical pain usually lasts for a period of 4-6 weeks. Narcotic medication includes Percocet, Vicodin, Darvocet, Tylenol #3 or Lortab. 2. Longer-term pain is more appropriately treated with non-narcotic medication such as Tylenol ES. 3. Muscle spasm is not appropriately treated with narcotics. Muscle relaxers such as Soma, Flexeril or Skelaxin can be used along with Tylenol ES. 4. Remember that we all live with some "aches and pains". This is not unusual or uncommon after an injury or as we get older. 5. We will provide appropriate medication within the normal guidelines of their prescribed use. We will also be very cautious and aware of potential abuse and extended duration of patients' medication needs. 6. Please allow 2-3 days to process refills. Prescriptions will not be mailed but must be picked up at the office. FOLLOW UP VISIT: Keep your scheduled follow-up appointment. Any questions, please call the office at . Pending Studies at Discharge: No Skilled Items Patient informed of condition?: Yes DNR: No Communicable Disease: No Lines: None Urinary Catheter: No Medications and DC Order Prescriptions: New oxycodone 5 mg tablet 5 mg PO Q6H PRN (Reason: pain, severe) Qty: 20 RF: 0 Continued docusate sodium [Colace] 100 mg capsule 100 mg PO BID RF: 0 pantoprazole 40 mg tablet,delayed release (DR/EC) 40 mg PO QAM Qty: 30 RF: 11 acetaminophen 500 mg tablet 1,000 mg PO TID Qty: 180 RF: 11 oxycodone 10 mg tablet 10 mg PO Q4H PRN (Reason: pain) Qty: 30 RF: 0 mirtazapine 30 mg tablet 30 mg PO HS RF: 0 calcium carbonate-vitamin D3 [Oyster Shell Calcium-Vit D3] 250-125 mg-unit tablet 1 tab PO BID RF: 0 propranolol 10 mg tablet 5 mg PO BID RF: 0 thiamine HCl (vitamin B1) 100 mg tablet 100 mg PO QAM RF: 0 ondansetron HCl 4 mg tablet 4 mg PO Q4H PRN (Reason: Nausea) RF: 0 ciprofloxacin HCl 500 mg tablet 500 mg PO .COMPLEX RF: 0 gabapentin 300 mg capsule 300 mg PO TID Qty: 90 RF: 2 lorazepam 0.5 mg tablet 0.5 mg PO BID PRN (Reason: anxiety) Qty: 20 RF: 2 atorvastatin 10 mg tablet 10 mg PO QPM RF: 0 celecoxib [Celebrex] 100 mg capsule 100 mg PO QAM RF: 0 diclofenac sodium [Voltaren] 1 % gel 4 g topical QID RF: 0 Senna Plus 8.6-50 mg capsule 1 tab-cap PO QDL RF: 0 Discontinued etodolac 200 mg capsule 200 mg PO Q12H PRN (Reason: pain) RF: 0 Discharge Orders: Discharge Order (Routine); Ordered 05/08/20 Ordered By: Leobardo Álvarez Admission Data Admit Date/Time: 05/07/20 10:39 Attending Provider: Leobardo Álvarez Admit Provider: Leobardo Álvarez Primary Care Provider: Leslie Camejo Other Providers: Cezar Cuevas ; [facility] Other Interventions: Discharge Summary Assessment (RN) Last Done: 05/08/20 12:08
== END 2020-05-08 15:14 | DRG 472 ==
LOC: ASU 06:10 → 3E 10:39

== ENCOUNTER 2021-02-18 11:42 | Inpatient (IN) ==
[2021-02-18 12:13] LABS: Basophils # (auto) 0.02 K/uL (0-0.2); Basophils % (auto) 0.4 %; Eosinophils # (auto) 0.13 K/uL (0-0.5); Eosinophils % (auto) 2.4 %; Hematocrit (blood only) 39.4 % (42-52); Hemoglobin 13.3 g/dL (14.0-18.0); Lymphocytes # (auto) 1.22 K/uL (1.2-3.4); Mean Corpuscular Hemoglobin 31.7 pg (25-34); Mean Corpuscular Hgb Conc 33.8 g/dL (32-36); Mean Platelet Volume 10.7 fL (7.4-10.4); Monocytes # (auto) 0.35 K/uL (0.11-0.59); Monocytes % (auto) 6.6 %; Neutrophils # (auto) 3.59 K/uL (1.4-6.5); Neutrophils % (auto) 67.6 %; Platelet Count 205 K/uL (130-400); RDW Coefficient of Variation 12.4 % (11.5-14.5); RDW Standard Deviation 42.2 fL (36.4-46.3); Red Blood Count 4.19 M/uL (4.7-6.1); White Blood Count 5.31 K/uL (4.8-10.8)
--- NOTE | 2021-02-18 12:15 | XRay Report ---
XR chest 1V portable CLINICAL HISTORY: Shortness of breath. COMPARISON STUDY: Chest CT March 15, 2020. Chest radiograph January 15, 2021. FINDINGS: Thoracolumbar spine scoliosis and elevation of the left hemidiaphragm are again noted. No p neumothorax or pleural effusion. Left basilar opacity is increased since prior examination. This favo rs atelectasis. There is no evidence for pulmonary edema. IMPRESSION: Increase in left basilar opacity since prior exam. Given elevation of left hemidiaphragm, this favors atelectasis. ACT 112: Negative or not required by law. Electronically signed by: Mode Real M.D. 02/18/2021 12:14 PM
[2021-02-18 12:30] LABS: Partial Thromboplastin Time 25.7 Seconds (21.0-31.0); Prothrombin Time 9.7 Seconds (9.0-12.0)
[2021-02-18 12:31] LABS: Alanine Aminotransferase 15 U/L (12-78); Albumin Level 3.8 gm/dl (3.4-5.0); Aspartate Aminotransferase 14 U/L (15-37); BUN Creatinine Ratio 22.7 (10-20); Blood Urea Nitrogen 16 mg/dl (7-18); Calcium 8.9 mg/dl (8.5-10.1); Carbon Dioxide 34 mmol/L (21-32); Chloride 102 mmol/L (98-107); Creatinine Clr Calc Pharmacy 101.9 ml/min; Est GFR (African American) 114.7 ml/min; Est GFR (Non-African American) 98.9 ml/min; Glucose 103 mg/dl (70-99); Magnesium 2.2 mg/dl (1.8-2.4); Potassium 4.4 mmol/L (3.5-5.1); Sodium 139 mmol/L (136-145)
[2021-02-18 12:36] LABS: Albumin Globulin Ratio 1.2 (0.9-2); Alkaline Phosphatase 51 U/L (45-117); Bilirubin,Total 0.4 mg/dl (0.2-1); Globulin 3.1 gm/dl (2.5-4.0); Total Protein 6.9 gm/dl (6.4-8.2); Troponin I < 0.015 ng/ml (0-0.045)
[2021-02-18] MEDS ORDERED: ALBUT/IPRATROP 3MG/0.5MG NEB 3 ML VIAL NEB ONE (12:47)
[2021-02-18] MEDS ORDERED: methylPREDNISolone 125 MG/2 ML VIAL IV STA (12:47)
[2021-02-18] MEDS ORDERED: MAGNESIUM SULFATE / D5W 1 GM/100 ML BAG IV STA (12:48)
[2021-02-18 14:04] LABS: Oxygen Saturation VBG 74.7 %; pH VBG 7.33 (7.36-7.41)
[2021-02-18] MEDS ORDERED: ACETAMINOPHEN 1,000 MG/100 ML VIAL IV STA (14:46)
[2021-02-18] MEDS ORDERED: ONDANSETRON INJ 2 MG/ML 2 ML VIAL IV STA (14:46)
[2021-02-18] MEDS: HYDROmorphone INJ 0.5 MG/0.5 ML SYR IV PRN ×2 (15:42→16:19)
[2021-02-18] MEDS ORDERED: OPTIRAY 320 125ml IV ONE (16:07)
--- NOTE | 2021-02-18 16:44 | CT Scan Report ---
CHEST CTA for PULMONARY ARTERIES CT DOSE: 255.53 mGy.cm HISTORY: Shortness of breath. TECHNIQUE: Multiaxial CT images of the chest were performed following the intravenous administration of contrast to evaluate the pulmonary arteries. Maximal intensity projection images were also obtaine d. A dose lowering technique was utilized adhering to the principles of ALARA. COMPARISON STUDY: Chest CT 03/15/2020. FINDINGS: Limited views the upper abdomen demonstrate a normal liver, spleen, and adrenal glands. The re is chronic elevation of the left hemidiaphragm, unchanged. The esophagus is normal in caliber. No mediastinal or hilar lymphadenopathy. No pleural or pericardial effusions. The heart is top normal in size. Partially visualized cervical spinal fusion hardware. There is S-shaped scoliosis of the thora columbar spine. Old, healed left-sided rib fractures. Normal caliber thoracic aorta with no evidence for dissection. No filling defects within the pulmonary arteries to suggest a pulmonary embolus. Line ar densities within the right mid to lower lung zone favor subsegmental atelectasis. No pneumothorax. Progressive consolidation within the left lung base most pronounced within the left lower lobe which demonstrates heterogeneous opacification. Therefore, this favors a combination of atelectasis and a pneumonia. IMPRESSION: 1. No evidence for pulmonary embolus. 2. Progressive consolidation within the left lung base most pronounced within the left lower lobe whi ch demonstrates heterogeneous opacification. Therefore, this favors a combination of atelectasis and a pneumonia. 3. Chronic elevation of the left hemidiaphragm, unchanged. ACT 112: Negative or not required by law. Electronically signed by: Cash Santoro M.D. 02/18/2021 4:42 PM
--- NOTE | 2021-02-18 17:34 | History & Physical Report ---
Date of Service February 18, 2021 Assessment & Plan (1) CAP (community acquired pneumonia): Plan: CTA chest on 02/18 showed "progressive consolidation within the left lung base most pronounced within the left lower lobe." He does report similar symptoms 2-3 years ago when he had a prior episode of pneumonia. (Looks like in 02/2019 in prior notes.) - Ordered blood cultures, MRSA swab, Legionella urine, and procalcitonin to better differentiate etiology - Start ceftriaxone and doxycycline (2) Otitis externa: Plan: I do not see otitis externa in either ear on my exam. Not much ear canal erythema. TMs both look fluid-filled to me. - Flonase - Abx as above (3) Hypertension: Plan: BP was 115/75 in the ED. - Continue home propranolol (4) Chronic pain: Plan: Hx of alcohol abuse and chronic opioid use. PDMP shows stable, chronic prescriptions from his PCP. - Continue home oxycodone - Continue home acetaminophen, celecoxib, & gabapentin - Hold home etodolac (repeat NSAID) - Continue GI ppx with famotidine (5) Anxiety: Plan: As with opioids, chronic use of benzos. - Continue home mirtazapine - Continue home lorazepam PRN (6) Hyperlipidemia: Plan: - Continue statin (7) DVT prophylaxis: Plan: SCDs - Low DVT risk per admission calculator History of Present Illness Primary Care Provider: Mel Andres 65yo M w/ hx of chronic pain and undifferentiated respiratory issues who presents with worsening shortness of breath and dyspnea on exertion. Reports that he has had increased trouble breathing for at least months, seemingly stemming from his Covid infection in July 2020. He is a fairly poor historian and cannot give details, but does note that approx. 3 weeks ago, he started to have sinus congestion and ear pressure that reduced his hearing. He was given ear drops which he reports did not improve his hearing at all. Approximately 1 week ago, he also had increased nasal congestion, sore throat, and productive cough which he reports has improved. However, in the last week to few days, he reports increased shortness of breath and MIRELES which is so bad that he cannot even lie down or bend over before getting winded. He feels he cannot complete his ADLs at this time. He denies f/c/ns. Denies lightheadedness, dizziness, n/v, weight loss, or other concerning ROS. Allergies Allergy/AdvReac Type Severity Reaction Status Date / Time erythromycin base Allergy Intermediate Rash, Verified 02/18/21 14:21 throat swelling, difficulty breathing Home Medications Medication Instructions Recorded Confirmed Type docusate sodium 100 mg capsule 100 mg PO BID 01/02/20 02/18/21 History (Colace) calcium carbonate-vitamin D3 250 1 tab PO BID 04/03/20 02/18/21 History mg-125 unit tablet (Oyster Shell Calcium-Vitamin D3) mirtazapine 30 mg tablet 30 mg PO HS 04/03/20 02/18/21 History ondansetron HCl 4 mg tablet 4 mg PO Q4H PRN tab 04/03/20 02/18/21 History propranolol 10 mg tablet 5 mg PO BID tab 04/03/20 02/18/21 History thiamine HCl (vitamin B1) 100 mg 100 mg PO QAM 04/03/20 02/18/21 History tablet acetaminophen 500 mg tablet 1,000 mg PO TID #180 tab 04/06/20 02/18/21 Rx atorvastatin 10 mg tablet 10 mg PO QPM 04/10/20 02/18/21 History gabapentin 300 mg capsule 300 mg PO TID #90 cap 04/17/20 02/18/21 Rx sennosides 8.6 mg-docusate sodium 1 tab-cap PO QDL 04/17/20 02/18/21 History 50 mg capsule (Senna Plus) artificial tears(hypromellose) 0.3 2 drp OPHTHALMIC (EYE) TID PRN #15 07/24/20 02/18/21 Rx % eye drops ml cetirizine 10 mg tablet (Zyrtec) 10 mg PO DAILY PRN #30 tab 08/16/20 02/18/21 Rx albuterol sulfate 90 mcg/actuation 2 puff INHALATION Q6H PRN #8.5 g 09/24/20 02/18/21 Rx aerosol inhaler sodium chloride 0.65 % nasal spray 1 spray INTRANASAL QID PRN #30 ml 10/29/20 02/18/21 Rx aerosol (Saline Nasal) bisacodyl 10 mg rectal suppository 10 mg OK DAILY PRN #12 ea 11/30/20 02/18/21 Rx (Dulcolax (bisacodyl)) triamcinolone acetonide 0.1 % 1 applic TOPICAL BID PRN #15 g 12/13/20 02/18/21 Rx topical cream famotidine 20 mg tablet 20 mg PO DAILY #30 tab 01/24/21 02/18/21 Rx lorazepam 0.5 mg tablet 0.5 mg PO BID PRN #60 tab 02/15/21 02/18/21 Rx oxycodone 10 mg tablet 10 mg PO Q4H PRN #90 tab 02/15/21 02/18/21 Rx celecoxib 100 mg capsule 100 mg PO DAILY 02/18/21 02/18/21 History etodolac 200 mg capsule 200 mg PO BID PRN 02/18/21 02/18/21 History melatonin 3 mg tablet 3 mg PO HS 02/18/21 02/18/21 History Past Med/Surg History Medical History Anxiety Arthritis Chronic back pain Chronic, continuous use of opioids Degenerative disc disease Diverticular disease Hearing difficulty History of recent fall 02/2020 treated at [facility]. currently at [facility] in [place], [place] Hyperlipidemia Hypertension Neuropathy bilateral legs Osteoarthritis Pneumonia ~2017 Spinal stenosis of lumbar region Stenosis of cervical spine with myelopathy Stomach ulcer hx Venous reflux Diagnosed 10/2018 during admission for what was initially thought to be cellulitis. US showed venous reflux, and cellulitis-appearing symptoms felt 2/2 "waxing/waning symptoms depending on how long he has had his feet down." Surgical History Foreign body of right eye removal of a small piece of metal about ~1979 History of appendectomy History of bowel resection r/t diverticulitis History of colonoscopy History of esophagogastroduodenoscopy (EGD) History of left inguinal hernia repair History of oral surgery all teeth removed History of right inguinal hernia repair History of tonsillectomy Hx of umbilical hernia repair Family History Mother Anxiety Depression Cardiac disorder Hypertension Diabetes Mesothelioma Father Mesothelioma Diabetes Brother Diabetes Other No significant family history Social History Smoking Status: Former smoker Tobacco Type: Cigarettes Second Hand Exposure: No; Hx Alcohol Use: No Hx Substance Use: Yes Last Used Substance: Hours (ago) Substance Use Type Other:: methadone and oxycodone - states he has not had methadone since 04/06/20 Preferred Language: Khmer Communication Ability: Effective Visual Impairment: Limited Hearing Ability: Normal Bonderizer Operator Required: No Beliefs That Will Affect Care: Anabaptist Anabaptist Beliefs: christian pt requesting to see vacuum form operator while in hospital. made primary RN aware marital status: Single Current Living Situation: Alone Current Living Situation Comment: apartment Feels Safe at Home: Yes Childhood Exposure to Second-Hand Smoke: Yes Dental Care, Regularly: No Physical Activity Frequency: Does not Exercise Seatbelt Use: always Sunscreen Use: No Assistive Devices: None Review of Systems Review of Systems: All systems reviewed & are unremarkable except as noted in HPI & below Physical Exam Constitutional: WD/WN, vitals as above Eyes: EOM intact bilaterally; no conjunctival abnormality ENMT: external ear and nose normal, oropharynx normal Neck: trachea midline, no thyromegaly normal visual inspection Respiratory: normal respiratory effort, lungs clear to auscultation no respiratory distress Cardiovascular: RRR, no murmur, no edema Gastrointestinal (Abdomen): Inspection/Auscultation: abdomen normal to inspection; abdomen not distended Musculoskeletal: no cyanosis or clubbing, extremities motor strength 5/5 Skin: no rashes, warm and dry Neurologic: moves all extremities and awake Psychiatric: Orientation: alert, oriented to person and cooperative Results & Data Results & Data ([facility]) Vital Signs (Past 12 Hours) Vital Signs Temp Pulse Pulse Resp BP Pulse Ox 02/18/21 17:00 78 20 115/78 99 02/18/21 16:30 83 20 117/84 98 02/18/21 16:20 98 02/18/21 16:00 95 H 19 02/18/21 15:49 75 20 02/18/21 15:00 78 20 133/80 92 02/18/21 14:30 68 24 106/77 02/18/21 14:00 75 17 106/72 100 02/18/21 13:30 64 16 103/76 100 02/18/21 13:24 70 18 99 02/18/21 13:00 65 20 98/69 L 100 02/18/21 12:30 65 23 95/69 L 99 02/18/21 12:00 68 22 123/76 99 02/18/21 11:53 36.9 C 70 18 113/82 97 Code Status & VTE Plan VTE Prophylaxis Plan VTE Prophylaxis will be ordered: Yes PG Care Time/CCT Total # of Minutes Spent Total Time Spent with Patient: Total time spent is greater than 50% in coordination of care (as documented) at patient's floor/unit and/or counseling patient: Coding Level of Care Code 74225 Initial Inpt Care Lvl 3 Diagnoses CAP (community acquired pneumonia) J18.9 Hypertension I10 Chronic pain G89.4 Chronic pain type: chronic pain syndrome Anxiety F41.9 Hyperlipidemia E78.5 DVT prophylaxis Z29.9 Otitis externa H60.90 (1) Chronic pain Chronic pain type: chronic pain syndrome Qualified Code(s): G89.4 - Chronic pain syndrome
[2021-02-18] MEDS ORDERED: ONDANSETRON 4 MG OD TAB PO PRN (18:33)
[2021-02-18] MEDS ORDERED: CETIRIZINE HCL 10 MG TABLET PO PRN (18:33)
[2021-02-18] MEDS ORDERED: ONDANSETRON INJ 2 MG/ML 2 ML VIAL IV PRN (18:33)
[2021-02-18] MEDS ORDERED: ARTIFICIAL TEARS OP PRN (19:04)
[2021-02-18] MEDS: ALBUT/IPRATROP 3MG/0.5MG NEB 3 ML VIAL NEB SCH (19:29)
--- NOTE | 2021-02-18 19:50 | Emergency Department Note ---
Impression & Plan Acute dyspnea, History of COVID-19 ED Provider Note NAME: RK HUNT II AGE: 65 SEX: M : 1955 ARRIVES VIA: Ambulance INFORMANT: Patient, ED PROVIDER(S): Pete Chatman MD CHIEF COMPLAINT: Shortness of breath HPI: This 65-year-old male who presents emergency department complaining shortness of breath. Patient reports anytime he walks he is unable to breathe. He is using 3 word sentences. Records review reveals the patient does have a history of COVID-19. He is normally on 2 L of oxygen at home however he has been bumped up to 4. He denies any fevers or chills. He reports any exertion m akes her shortness of breath worse and rest makes it somewhat better. ROS: See above HPI for pertinent positives & negatives. A total of 10 systems reviewed and were otherwise negative. PAST MEDICAL HISTORY: See Below PAST SURGICAL HISTORY: See Below FAMILY HISTORY: See Below SOCIAL HISTORY: See Below HOME MEDICATIONS: See Below ALLERGIES: See Below VITALS: See Below PHYSICAL EXAMINATION: VITAL SIGNS - Vital signs and nursing notes were reviewed. GENERAL - 65-year-old male appearing stated age who is in no acute distress. Communicates well with provider and answers questions appropriately. SKIN - Without rashes. HEAD - NC/AT. EYES - PERRL with EOMI bilaterally. Sclera anicteric. Palpebral conjunctiva pink and moist with no injection noted. EARS - No deformities of external structures noted on gross examination bilaterally. NOSE - Midline and without cyanosis. No epistaxis or purulent drainage noted. Septum midline without deviation or septal hematoma noted. MOUTH/OROPHARYNX - Without perioral cyanosis. Buccal mucosa pink and moist and without leukoplakia. Tongue midline with equal elevation of palate bilaterally. No tonsillar hypertrophy, erythema, or exudates noted. NECK - Neck with FROM. Supple to palpation. LUNGS - Chest wall symmetric without accessory muscle use, intercostals retractions, or central cyanosis. Normal vesicular breath sounds CTA B/L. No wheezes, rales, or rhonchi appreciated. CARDIAC - RRR with S1/S2. No murmur, rubs, or gallops appreciated. ABDOMEN - Abdominal contour without pulsations or visible masses. BS normoactive all four quadrants. No tenderness, palpable masses, hepatosplenomegaly, or ascites noted. EXTREMITIES - No clubbing or peripheral cyanosis. No pretibial edema present. +3/5 radial, posterior tibial, and dorsalis pedis pulses palpated throughout. +5/5 strength noted in UE/LE bilaterally. NEUROLOGIC - Cranial nerves II through XII grossly intact. Sensory intact to light touch throughout. Patellar reflexes +2/4. PSYCH - A&Ox3 and cooperates fully with examiner. Pt is very pleasant and interacts well with examiner. MEDICAL DECISION MAKING: Patient was seen and evaluated as above in room C4. Review was performed of nursing notes and vital signs. I did review pertinent previous visits and patient history. After obtaining a thorough history and physical examination the above work up was performed. This 65-year-old male who has increased oxygen demand. Patient was given Solu- Medrol here he was sent for CAT scan of the chest which was interpreted by me. This does not show any evidence of PE. The patient was given hourly long breathing treatment his Covid test is negative he does not have an elevation in his white blood cell count I did discuss the case with the hospitalist service who did agree to meet the patient. Patient is in agreement with the treatment plan. An order was placed for continuous cardiac monitoring. The monitor shows a rate of 90 with Normal Sinus rhythm. The patient was evaluated during a period of high volume and high acuity during the global COVID-19 pandemic, and that diagnosis was suspected/considered upon their initial presentation. Their evaluation, treatment and testing was consistent with current guidelines for patients who present with complaints or symptoms that may be related to COVID-19. Patient was seen while provider was wearing PPE. Triage Nursing notes reviewed. Prior medical records reviewed Vital Signs: reviewed and remarkable for no significant abnormalities Differential diagnosis: Reactive airway disease, pneumonia, pneumothorax, COPD, CHF, infections, cardiac ischemia, pulmonary embolism, musculoskeletal, gastrointestinal, as well as other pathologies. ER treatment provided: See below Diagnostics interpreted by me: ECG: Normal sinus rhythm normal EKG QTC is 362 ventricular rate of [address] elevation or depression Laboratory studies: As stated above and show below. Imaging studies: See below Consultation(s): Internal Medicine Past Med/Surg History Medical History Anxiety Arthritis Chronic back pain Chronic, continuous use of opioids Degenerative disc disease Diverticular disease Hearing difficulty History of recent fall 02/2020 treated at [facility]. currently at [facility] in [place], [place] Hyperlipidemia Hypertension Neuropathy bilateral legs Osteoarthritis Pneumonia ~2017 Spinal stenosis of lumbar region Stenosis of cervical spine with myelopathy Stomach ulcer hx Venous reflux Diagnosed 10/2018 during admission for what was initially thought to be cellulitis. US showed venous reflux, and cellulitis-appearing symptoms felt 2/2 "waxing/waning symptoms depending on how long he has had his feet down." Surgical History Foreign body of right eye removal of a small piece of metal about ~1979 History of appendectomy History of bowel resection r/t diverticulitis History of colonoscopy History of esophagogastroduodenoscopy (EGD) History of left inguinal hernia repair History of oral surgery all teeth removed History of right inguinal hernia repair History of tonsillectomy Hx of umbilical hernia repair Family History Mother Anxiety Depression Cardiac disorder Hypertension Diabetes Mesothelioma Father Mesothelioma Diabetes Brother Diabetes Other No significant family history Social History Smoking Status: Former smoker Tobacco Type: Cigarettes Second Hand Exposure: No; Hx Alcohol Use: No Hx Substance Use: Yes Last Used Substance: Hours (ago) Substance Use Type Other:: methadone and oxycodone - states he has not had methadone since 04/06/20 Preferred Language: Marshallese Communication Ability: Effective Visual Impairment: Limited Hearing Ability: Normal Associate Financial Representative Required: No Beliefs That Will Affect Care: Hinduism Hinduism Beliefs: denominational pt requesting to see piercer while in hospital. made primary RN aware marital status: Single Current Living Situation: Alone Current Living Situation Comment: apartment Feels Safe at Home: Yes Childhood Exposure to Second-Hand Smoke: Yes Dental Care, Regularly: No Physical Activity Frequency: Does not Exercise Seatbelt Use: always Sunscreen Use: No Assistive Devices: None Allergies Allergies Allergy/AdvReac Type Severity Reaction Status Date / Time erythromycin base Allergy Intermediate Rash, Verified 02/18/21 14:21 throat swelling, difficulty breathing Home Meds Home Medications Medication Instructions Recorded Confirmed docusate sodium 100 mg capsule 100 mg PO BID 01/02/20 02/18/21 (Colace) calcium carbonate-vitamin D3 250 1 tab PO BID 04/03/20 02/18/21 mg-125 unit tablet (Oyster Shell Calcium-Vitamin D3) mirtazapine 30 mg tablet 30 mg PO HS 04/03/20 02/18/21 ondansetron HCl 4 mg tablet 4 mg PO Q4H PRN tab 04/03/20 02/18/21 propranolol 10 mg tablet 5 mg PO BID tab 04/03/20 02/18/21 thiamine HCl (vitamin B1) 100 mg 100 mg PO QAM 04/03/20 02/18/21 tablet atorvastatin 10 mg tablet 10 mg PO QPM 04/10/20 02/18/21 sennosides 8.6 mg-docusate sodium 1 tab-cap PO QDL 04/17/20 02/18/21 50 mg capsule (Senna Plus) celecoxib 100 mg capsule 100 mg PO DAILY 02/18/21 02/18/21 etodolac 200 mg capsule 200 mg PO BID PRN 02/18/21 02/18/21 melatonin 3 mg tablet 3 mg PO HS 02/18/21 02/18/21 Previous Rx's Medication Instructions Recorded acetaminophen 500 mg tablet 1,000 mg PO TID #180 tab 04/06/20 gabapentin 300 mg capsule 300 mg PO TID #90 cap 04/17/20 artificial tears(hypromellose) 0.3 2 drp OPHTHALMIC (EYE) TID PRN #15 07/24/20 % eye drops ml cetirizine 10 mg tablet (Zyrtec) 10 mg PO DAILY PRN #30 tab 08/16/20 albuterol sulfate 90 mcg/actuation 2 puff INHALATION Q6H PRN #8.5 g 09/24/20 aerosol inhaler sodium chloride 0.65 % nasal spray 1 spray INTRANASAL QID PRN #30 ml 10/29/20 aerosol (Saline Nasal) bisacodyl 10 mg rectal suppository 10 mg ME DAILY PRN #12 ea 11/30/20 (Dulcolax (bisacodyl)) triamcinolone acetonide 0.1 % 1 applic TOPICAL BID PRN #15 g 12/13/20 topical cream famotidine 20 mg tablet 20 mg PO DAILY #30 tab 01/24/21 lorazepam 0.5 mg tablet 0.5 mg PO BID PRN #60 tab 02/15/21 oxycodone 10 mg tablet 10 mg PO Q4H PRN #90 tab 02/15/21 Results & Data (ED) Vital Signs Vital Signs - 24 hr 02/18/21 11:53 02/18/21 12:00 02/18/21 12:30 Temperature 36.9 C Temperature Source Oral Pulse Rate 70 68 65 Pulse Rate [Right Finger] Pulse Rate from SpO2 Sensor 68 65 Pulse Rhythm Regular Pulse Strength Normal Respiratory Rate 18 22 23 Respiratory Effort / Characteristics Spontaneous Respiratory Depth Normal Respiratory Pattern Regular Blood Pressure 113/82 123/76 95/69 L Blood Pressure Mean 92 91 77 Pulse Oximetry 97 99 99 Oxygen Delivery Method Nasal Cannula Oxygen Flow Rate 4 4 4 Sepsis Recent Fever Within 48 Hours No Sepsis New/Unexplained Change in Mental Status No Sepsis Action Taken by Nursing No Action Required 02/18/21 13:00 02/18/21 13:24 02/18/21 13:30 Temperature Temperature Source Pulse Rate 65 64 Pulse Rate [Right Finger] 70 Pulse Rate from SpO2 Sensor 65 65 Pulse Rhythm Pulse Strength Respiratory Rate 20 18 16 Respiratory Effort / Characteristics Non-Labored Spontaneous Respiratory Depth Respiratory Pattern Blood Pressure 98/69 L 103/76 Blood Pressure Mean 78 85 Pulse Oximetry 100 99 100 Oxygen Delivery Method Nasal Cannula Oxygen Flow Rate 4 4 4 Sepsis Recent Fever Within 48 Hours Sepsis New/Unexplained Change in Mental Status Sepsis Action Taken by Nursing 02/18/21 14:00 02/18/21 14:30 02/18/21 15:00 Temperature Temperature Source Pulse Rate 75 68 78 Pulse Rate [Right Finger] Pulse Rate from SpO2 Sensor 72 78 Pulse Rhythm Pulse Strength Respiratory Rate 17 24 20 Respiratory Effort / Characteristics Respiratory Depth Respiratory Pattern Blood Pressure 106/72 106/77 133/80 Blood Pressure Mean 83 86 97 Pulse Oximetry 100 92 Oxygen Delivery Method Oxygen Flow Rate Sepsis Recent Fever Within 48 Hours Sepsis New/Unexplained Change in Mental Status Sepsis Action Taken by Nursing 02/18/21 15:49 02/18/21 16:00 02/18/21 16:20 Temperature Temperature Source Pulse Rate 75 95 H Pulse Rate [Right Finger] Pulse Rate from SpO2 Sensor Pulse Rhythm Pulse Strength Respiratory Rate 20 19 Respiratory Effort / Characteristics Respiratory Depth Respiratory Pattern Blood Pressure Blood Pressure Mean Pulse Oximetry 98 Oxygen Delivery Method Nasal Cannula Oxygen Flow Rate 4 Sepsis Recent Fever Within 48 Hours Sepsis New/Unexplained Change in Mental Status Sepsis Action Taken by Nursing 02/18/21 16:30 02/18/21 17:00 Temperature Temperature Source Pulse Rate 83 78 Pulse Rate [Right Finger] Pulse Rate from SpO2 Sensor 84 79 Pulse Rhythm Pulse Strength Respiratory Rate 20 20 Respiratory Effort / Characteristics Respiratory Depth Respiratory Pattern Blood Pressure 117/84 115/78 Blood Pressure Mean 95 90 Pulse Oximetry 98 99 Oxygen Delivery Method Nasal Cannula Nasal Cannula Oxygen Flow Rate 4 4 Sepsis Recent Fever Within 48 Hours Sepsis New/Unexplained Change in Mental Status Sepsis Action Taken by Detention Medications Current Medication List: was personally reviewed by me Laboratory Data Attestation: I reviewed the patient's lab results. Result diagrams: 02/18/21 11:15 02/18/21 11:15 Lab Results 02/18/21 02/18/21 02/18/21 Range/Units 11:15 11:15 11:15 WBC 5.31 (4.8-10.8) K/uL RBC 4.19 L (4.7-6.1) M/uL Hgb 13.3 L (14.0-18.0) g/dL Hct 39.4 L (42-52) % MCV 94.0 (80-100) fL MCH 31.7 (25-34) pg MCHC 33.8 (32-36) g/dL RDW Std Deviation 42.2 (36.4-46.3) fL RDW Coeff of Stephen 12.4 (11.5-14.5) % Plt Count 205 (130-400) K/uL MPV 10.7 H (7.4-10.4) fL Immature Gran % (Auto) 0.0 % Neut % (Auto) 67.6 % Lymph % (Auto) 23.0 % Hudson % (Auto) 6.6 % Eos % (Auto) 2.4 % Baso % (Auto) 0.4 % Neut # (Auto) 3.59 (1.4-6.5) K/uL Lymph # (Auto) 1.22 (1.2-3.4) K/uL Hudson # (Auto) 0.35 (0.11-0.59) K/uL Eos # (Auto) 0.13 (0-0.5) K/uL Baso # (Auto) 0.02 (0-0.2) K/uL Immature Gran # (Auto) 0.00 (0.00-0.02) K/uL PT 9.7 (9.0-12.0) Seconds INR 1.0 (0.9-1.1) APTT 25.7 (21.0-31.0) Seconds PTT Ratio 1.0 VBG pH (7.36-7.41) VBG pCO2 (38-50) mmHg VBG pO2 mmHg VBG HCO3 mmol/L VBG O2 Saturation % VBG Base Excess mEq/L Barometric Pressure mm/Hg Sodium 139 (136-145) mmol/L Potassium 4.4 (3.5-5.1) mmol/L Chloride 102 (98-107) mmol/L Carbon Dioxide 34 H (21-32) mmol/L Anion Gap 3.0 (3-11) BUN 16 (7-18) mg/dl Creatinine 0.69 (0.6-1.4) mg/dl Est Cr Clr Drug Dosing 101.9 ml/min Est GFR ( Amer) 114.7 ml/min Est GFR (Non-Af Amer) 98.9 ml/min BUN/Creatinine Ratio 22.7 H (10-20) Glucose 103 H (70-99) mg/dl Calcium 8.9 (8.5-10.1) mg/dl Magnesium 2.2 (1.8-2.4) mg/dl Total Bilirubin 0.4 (0.2-1) mg/dl AST 14 L (15-37) U/L ALT 15 (12-78) U/L Alkaline Phosphatase 51 (45-117) U/L Troponin I < 0.015 (0-0.045) ng/ml Total Protein 6.9 (6.4-8.2) gm/dl Albumin 3.8 (3.4-5.0) gm/dl Globulin 3.1 (2.5-4.0) gm/dl Albumin/Globulin Ratio 1.2 (0.9-2) Procalcitonin (0-0.5) ng/ml COVID-19 Eval Order SARS-CoV-2 (PCR) (Negative) 02/18/21 02/18/21 02/18/21 Range/Units 11:15 12:40 12:40 WBC (4.8-10.8) K/uL RBC (4.7-6.1) M/uL Hgb (14.0-18.0) g/dL Hct (42-52) % MCV (80-100) fL MCH (25-34) pg MCHC (32-36) g/dL RDW Std Deviation (36.4-46.3) fL RDW Coeff of Stephen (11.5-14.5) % Plt Count (130-400) K/uL MPV (7.4-10.4) fL Immature Gran % (Auto) % Neut % (Auto) % Lymph % (Auto) % Hudson % (Auto) % Eos % (Auto) % Baso % (Auto) % Neut # (Auto) (1.4-6.5) K/uL Lymph # (Auto) (1.2-3.4) K/uL Hudson # (Auto) (0.11-0.59) K/uL Eos # (Auto) (0-0.5) K/uL Baso # (Auto) (0-0.2) K/uL Immature Gran # (Auto) (0.00-0.02) K/uL PT (9.0-12.0) Seconds INR (0.9-1.1) APTT (21.0-31.0) Seconds PTT Ratio VBG pH (7.36-7.41) VBG pCO2 (38-50) mmHg VBG pO2 mmHg VBG HCO3 mmol/L VBG O2 Saturation % VBG Base Excess mEq/L Barometric Pressure mm/Hg Sodium (136-145) mmol/L Potassium (3.5-5.1) mmol/L Chloride (98-107) mmol/L Carbon Dioxide (21-32) mmol/L Anion Gap (3-11) BUN (7-18) mg/dl Creatinine (0.6-1.4) mg/dl Est Cr Clr Drug Dosing ml/min Est GFR ( Amer) ml/min Est GFR (Non-Af Amer) ml/min BUN/Creatinine Ratio (10-20) Glucose (70-99) mg/dl Calcium (8.5-10.1) mg/dl Magnesium (1.8-2.4) mg/dl Total Bilirubin (0.2-1) mg/dl AST (15-37) U/L ALT (12-78) U/L Alkaline Phosphatase (45-117) U/L Troponin I (0-0.045) ng/ml Total Protein (6.4-8.2) gm/dl Albumin (3.4-5.0) gm/dl Globulin (2.5-4.0) gm/dl Albumin/Globulin Ratio (0.9-2) Procalcitonin < 0.05 (0-0.5) ng/ml COVID-19 Eval Order Covid19 at [facility] SARS-CoV-2 (PCR) NEGATIVE (Negative) 02/18/21 Range/Units 13:50 WBC (4.8-10.8) K/uL RBC (4.7-6.1) M/uL Hgb (14.0-18.0) g/dL Hct (42-52) % MCV (80-100) fL MCH (25-34) pg MCHC (32-36) g/dL RDW Std Deviation (36.4-46.3) fL RDW Coeff of Stephen (11.5-14.5) % Plt Count (130-400) K/uL MPV (7.4-10.4) fL Immature Gran % (Auto) % Neut % (Auto) % Lymph % (Auto) % Hudson % (Auto) % Eos % (Auto) % Baso % (Auto) % Neut # (Auto) (1.4-6.5) K/uL Lymph # (Auto) (1.2-3.4) K/uL Hudson # (Auto) (0.11-0.59) K/uL Eos # (Auto) (0-0.5) K/uL Baso # (Auto) (0-0.2) K/uL Immature Gran # (Auto) (0.00-0.02) K/uL PT (9.0-12.0) Seconds INR (0.9-1.1) APTT (21.0-31.0) Seconds PTT Ratio VBG pH 7.33 L (7.36-7.41) VBG pCO2 69 H (38-50) mmHg VBG pO2 41 mmHg VBG HCO3 35 mmol/L VBG O2 Saturation 74.7 % VBG Base Excess 7.0 mEq/L Barometric Pressure 729.4 mm/Hg Sodium (136-145) mmol/L Potassium (3.5-5.1) mmol/L Chloride (98-107) mmol/L Carbon Dioxide (21-32) mmol/L Anion Gap (3-11) BUN (7-18) mg/dl Creatinine (0.6-1.4) mg/dl Est Cr Clr Drug Dosing ml/min Est GFR ( Amer) ml/min Est GFR (Non-Af Amer) ml/min BUN/Creatinine Ratio (10-20) Glucose (70-99) mg/dl Calcium (8.5-10.1) mg/dl Magnesium (1.8-2.4) mg/dl Total Bilirubin (0.2-1) mg/dl AST (15-37) U/L ALT (12-78) U/L Alkaline Phosphatase (45-117) U/L Troponin I (0-0.045) ng/ml Total Protein (6.4-8.2) gm/dl Albumin (3.4-5.0) gm/dl Globulin (2.5-4.0) gm/dl Albumin/Globulin Ratio (0.9-2) Procalcitonin (0-0.5) ng/ml COVID-19 Eval Order SARS-CoV-2 (PCR) (Negative) Administered Medications Albuterol (Albut/Ipratrop 3mg/0.5mg Neb 3 Ml Vial) 3 ml NEB QIDR GREGORY Stop: 03/20/21 18:59 Last Admin: 02/18/21 19:29 Dose: 3 ml Documented by: [id number] Oxycodone HCl (Oxycodone Hcl Ir 5 Mg Tab (Immediate Release)) 10 mg PO Q4H PRN PRN Reason: pain Stop: 03/04/21 18:32 Last Admin: 02/18/21 19:53 Dose: 10 mg Documented by: [id number] Discontinued Medications Albuterol (Albut/Ipratrop 3mg/0.5mg Neb 3 Ml Vial) 12 ml NEB ONE ONE Stop: 02/18/21 12:48 Last Admin: 02/18/21 13:24 Dose: 12 ml Documented by: [id number] Hydromorphone HCl (Hydromorphone Inj 0.5 Mg/0.5 Ml Syr) 0.5 mg IV Q15M PRN PRN Reason: Pain Stop: 03/04/21 14:45 Last Admin: 02/18/21 16:19 Dose: 0.5 mg Documented by: [id number] Admin: 02/18/21 15:42 Dose: 0.5 mg Documented by: [id number] Magnesium Sulfate/Dextrose (Magnesium Sulfate / D5w) 1 gm in 100 mls @ 100 mls/hr IV NOW STA Stop: 02/18/21 13:47 Last Infusion: 02/18/21 14:44 Dose: 0 mls/hr Documented by: [id number] Admin: 02/18/21 13:21 Dose: 100 mls/hr Documented by: [id number] Acetaminophen (Ofirmev) 1,000 mg in 100 mls @ 400 mls/hr IV NOW STA Stop: 02/18/21 15:00 Last Infusion: 02/18/21 16:07 Dose: 0 mls/hr Documented by: [id number] Admin: 02/18/21 15:41 Dose: 400 mls/hr Documented by: [id number] Ioversol (Optiray 320 125ml) 120 ml IV ONCE ONE Stop: 02/18/21 16:08 Last Admin: 02/18/21 16:08 Dose: 120 ml Documented by: [id number] Methylprednisolone (Methylprednisolone 125 Mg/2 Ml Vial) 125 mg IV NOW STA Stop: 02/18/21 12:48 Last Admin: 02/18/21 13:21 Dose: 125 mg Documented by: [id number] Ondansetron HCl (Ondansetron Inj 2 Mg/Ml 2 Ml Vial) 4 mg IV NOW STA Stop: 02/18/21 14:47 Last Admin: 02/18/21 15:42 Dose: 4 mg Documented by: [id number] Imaging Data Radiologist's Impression: Chest X-Ray 02/18/21 11:56 XR chest 1V portable CLINICAL HISTORY: Shortness of breath. COMPARISON STUDY: Chest CT March 15, 2020. Chest radiograph January 15, 2021. FINDINGS: Thoracolumbar spine scoliosis and elevation of the left hemidiaphragm are again noted. No pneumothorax or pleural effusion. Left basilar opacity is increased since prior examination. This favors atelectasis. There is no evidence for pulmonary edema. IMPRESSION: Increase in left basilar opacity since prior exam. Given elevation of left hemidiaphragm, this favors atelectasis. ACT 112: Negative or not required by law. Electronically signed by: Mode Real M.D. 02/18/2021 12:14 PM Chest CTA 02/18/21 12:47 CHEST CTA for PULMONARY ARTERIES CT DOSE: 255.53 mGy.cm HISTORY: Shortness of breath. TECHNIQUE: Multiaxial CT images of the chest were performed following the in travenous administration of contrast to evaluate the pulmonary arteries. Maximal intensity projection images were also obtained. A dose lowering technique was utilized adhering to the principles of ALARA. COMPARISON STUDY: Chest CT 03/15/2020. FINDINGS: Limited views the upper abdomen demonstrate a normal liver, spleen, and adrenal glands. There is chronic elevation of the left hemidiaphragm, unchanged. The esophagus is normal in caliber. No mediastinal or hilar lymphadenopathy. No pleural or pericardial effusions. The heart is top normal in size. Partially visualized cervical spinal fusion hardware. There is S-shaped scoliosis of the thoracolumbar spine. Old, healed left-sided rib fractures. Normal caliber thoracic aorta with no evidence for dissection. No filling defects within the pulmonary arteries to suggest a pulmonary embolus. Linear densities within the right mid to lower lung zone favor subsegmental atelectasis. No pneumothorax. Progressive consolidation within the left lung base most pronounced within the left lower lobe which demonstrates heterogeneous opacification. Therefore, this favors a combination of atelectasis and a pneumonia. IMPRESSION: 1. No evidence for pulmonary embolus. 2. Progressive consolidation within the left lung base most pronounced within the left lower lobe which demonstrates heterogeneous opacification. Therefore, this favors a combination of atelectasis and a pneumonia. 3. Chronic elevation of the left hemidiaphragm, unchanged. ACT 112: Negative or not required by law. Electronically signed by: Cash Santoro M.D. 02/18/2021 4:42 PM Discharge Plan Visit Data Chief Complaint: Shortness of Breath/Dyspnea ED Provider: Pete Chatman Discharge Problem: Acute dyspnea, History of COVID-19 Patient Disposition: Admitted As Inpatient Discharge Instructions Interventions: ED Discharge Assessment Last Done: 02/18/21 18:16
[2021-02-18] MEDS: oxyCODONE HCL IR 5 MG TAB (IMMEDIATE RELEASE) PO PRN (19:53)
[2021-02-18] MEDS: DOXYCYCLINE HYCLATE 100 MG in DEXTROSE 5% 100 ML IV SCH (21:18)
[2021-02-18] MEDS: cefTRIAXone SODIUM 1,000 MG in DEXTROSE 5% 50 ML IV SCH (21:19)
[2021-02-18] MEDS: ENOXAPARIN INJ 40 MG/0.4 ML SYR SQ SCH (21:25)
[2021-02-18] MEDS: ATORVASTATIN 10 MG TAB PO SCH (21:26)
[2021-02-18] MEDS: MIRTAZAPINE TAB 15 MG TAB PO SCH (21:27)
[2021-02-18] MEDS: CALCIUM 600MG + VIT D 400 IU TAB PO SCH (21:27)
[2021-02-18] MEDS: GABAPENTIN 300 MG CAP PO SCH (21:28)
[2021-02-18] MEDS: DOCUSATE SODIUM 100 MG CAP PO SCH (21:28)
[2021-02-18] MEDS: PROPRANOLOL HCL 10 MG TAB PO SCH (21:34)
[2021-02-18] MEDS: FLUTICASONE PROPIONATE NA SPR 16 GM BTL SCH (21:42)
[2021-02-18] MEDS: MELATONIN 3 MG TAB PO SCH (21:42)
[2021-02-19] MEDS: oxyCODONE HCL IR 5 MG TAB (IMMEDIATE RELEASE) PO PRN ×6 (00:56→21:53)
[2021-02-19] MEDS: DOXYCYCLINE HYCLATE 100 MG in DEXTROSE 5% 100 ML IV SCH ×2 (05:28→17:38)
[2021-02-19] MEDS: ALBUT/IPRATROP 3MG/0.5MG NEB 3 ML VIAL NEB SCH (07:24)
[2021-02-19 07:37] LABS: Hematocrit (blood only) 37.5 % (42-52); Hemoglobin 12.5 g/dL (14.0-18.0); Mean Corpuscular Hemoglobin 31.3 pg (25-34); Mean Corpuscular Hgb Conc 33.3 g/dL (32-36); Platelet Count 171 K/uL (130-400); RDW Coefficient of Variation 12.1 % (11.5-14.5); RDW Standard Deviation 41.2 fL (36.4-46.3); Red Blood Count 3.99 M/uL (4.7-6.1); White Blood Count 6.51 K/uL (4.8-10.8)
[2021-02-19 08:13] LABS: BUN Creatinine Ratio 23.3 (10-20); Calcium 9.2 mg/dl (8.5-10.1); Creatinine Clr Calc Pharmacy 81.9 ml/min; Est GFR (African American) 106.3 ml/min; Est GFR (Non-African American) 91.7 ml/min; Magnesium 2.5 mg/dl (1.8-2.4); Potassium 4.6 mmol/L (3.5-5.1)
[2021-02-19] MEDS ORDERED: ALBUT/IPRATROP 3MG/0.5MG NEB 3 ML VIAL NEB PRN (08:31)
[2021-02-19] MEDS: ACETAMINOPHEN 500 MG TAB PO SCH ×3 (09:06→17:36)
[2021-02-19] MEDS: GABAPENTIN 300 MG CAP PO SCH ×3 (09:07→21:26)
[2021-02-19] MEDS: CELECOXIB 100 MG CAP PO SCH (09:08)
[2021-02-19] MEDS: FAMOTIDINE 20 MG TAB PO SCH (09:08)
[2021-02-19] MEDS: DOCUSATE SODIUM 100 MG CAP PO SCH ×2 (09:08→21:24)
[2021-02-19] MEDS: THIAMINE HCL 100 MG TAB PO SCH (09:08)
[2021-02-19] MEDS: PROPRANOLOL HCL 10 MG TAB PO SCH ×2 (09:10→21:27)
[2021-02-19] MEDS: CALCIUM 600MG + VIT D 400 IU TAB PO SCH ×2 (09:10→21:24)
[2021-02-19] MEDS: FLUTICASONE PROPIONATE NA SPR 16 GM BTL SCH ×2 (09:10→21:25)
--- NOTE | 2021-02-19 09:11 | Hospitalist Progress Note ---
Date of Service February 19, 2021 Assessment & Plan (1) CAP (community acquired pneumonia): Plan: CTA chest on 02/18 showed "progressive consolidation within the left lung base most pronounced within the left lower lobe." He does report similar symptoms 2-3 years ago when he had a prior episode of pneumonia. (Looks like in 02/2019 in prior notes.) - Ordered blood cultures, MRSA swab, Legionella urine, procalcitonin not elevated - ceftriaxone and doxycycline givne former smoker will recommend follow up imaging (2) Otitis externa: Plan: otitis externa was not corroborated on intake exam. - Abx as above (3) Hypertension: Plan: BP was 115/75 in the ED. - Continue home propranolol (4) Chronic pain: Plan: Hx of alcohol abuse and chronic opioid use. PDMP shows stable, chronic prescriptions from his PCP. - Continue home oxycodone - Continue home acetaminophen, celecoxib, & gabapentin - Hold home etodolac (repeat NSAID) - Continue GI ppx with famotidine - no signs of active withdrawal at this time (5) Anxiety: Plan: As with opioids, chronic use of benzos. - Continue home mirtazapine - Continue home lorazepam PRN (6) Hyperlipidemia: Plan: - Continue statin (7) DVT prophylaxis: Plan: SCDs - Low DVT risk per admission calculator Admission and Anticipated Discharge Date Admission Date: February 18, 2021 Subjective Patient has exertional dyspnea and is expectorating breaux sputum. He has some left lateral and posterior chest wall pain which is pleuritic Review of Systems Review of Systems: Mild distress and fatigue no headache, no visual changes no speech or swallowing issues Clinical chest pain which is pleuritic Planing of some mild shortness of breath, productive cough but no wheezes no abdominal pain, nausea or vomiting, diarrhea or constipation no dysuria, hematuria or frequency no focal joint pain or swelling no back pain, CVA tenderness or radicular pain no bruising, bleeding or rashes no focal signs of weakness or numbness or altered sensation no complaints of anxiety or depression.. Physical Exam Physical Exam: The patient appeared well nourished and normally developed. Vital signs as documented. Head exam is normocephalic atraumatic Neck is without JVD, thyromegaly, or carotid bruits. Lungs are clear to auscultation, no focal loss of breath sounds Cardiac exam, Rhythm is regular.. No murmurs, rubs or gallops. Abdominal exam reveals normal bowel sounds, soft non tender, no masses Extremities are nonedematous and both pedal pulses are present Neurologic exam is alert and oriented, no focal loss of strength or sensation Skin is without bruises or rashes Psychologically is without concerns for anxiety or depression Results & Data Results & Data ([facility]) Vital Signs (Past 12 Hours) Vital Signs Temp Pulse Resp BP Pulse Ox 02/19/21 07:24 63 18 98 02/19/21 07:06 97.9 F 67 20 96/64 L 97 02/18/21 23:20 98.4 F 81 20 94/60 L 95 02/18/21 21:26 95 H 20 103/71 92 PG Care Time/CCT Total # of Minutes Spent Total Time Spent with Patient: Total time spent is greater than 50% in coordination of care (as documented) at patient's floor/unit and/or counseling patient: Coding Level of Care Code 27085 Subseq Hosp Care Lvl 3 Diagnoses CAP (community acquired pneumonia) J18.9 Otitis externa H60.90 Hypertension I10 Chronic pain G89.4 Chronic pain type: chronic pain syndrome Anxiety F41.9 Hyperlipidemia E78.5 DVT prophylaxis Z29.9 (1) Chronic pain Chronic pain type: chronic pain syndrome Qualified Code(s): G89.4 - Chronic pain syndrome
[2021-02-19] MEDS: LORazepam 0.5 MG TAB PO PRN ×2 (12:17)
[2021-02-19] MEDS: cefTRIAXone SODIUM 1,000 MG in DEXTROSE 5% 50 ML IV SCH (17:37)
--- NOTE | 2021-02-19 19:13 | Hospitalist Progress Note ---
Date of Service February 19, 2021 Assessment & Plan (1) CAP (community acquired pneumonia): Plan: CTA chest on 02/18 showed "progressive consolidation within the left lung base most pronounced within the left lower lobe." He does report similar symptoms 2-3 years ago when he had a prior episode of pneumonia. (Looks like in 02/2019 in prior notes.) - Ordered blood cultures, MRSA swab, Legionella urine, procalcitonin not elevated - ceftriaxone and doxycycline givne former smoker will recommend follow up imaging (2) Otitis externa: Plan: otitis externa was not corroborated on intake exam. - Abx as above (3) Hypertension: Plan: BP was 115/75 in the ED. - Continue home propranolol (4) Chronic pain: Plan: Hx of alcohol abuse and chronic opioid use. PDMP shows stable, chronic prescriptions from his PCP. - Continue home oxycodone - Continue home acetaminophen, celecoxib, & gabapentin - Hold home etodolac (repeat NSAID) - Continue GI ppx with famotidine - no signs of active withdrawal at this time (5) Anxiety: Plan: As with opioids, chronic use of benzos. - Continue home mirtazapine - Continue home lorazepam PRN (6) Hyperlipidemia: Plan: - Continue statin (7) DVT prophylaxis: Plan: SCDs - Low DVT risk per admission calculator (8) Chronic respiratory failure with hypoxia: Admission and Anticipated Discharge Date Admission Date: February 18, 2021 Subjective This note is for documentation use only not for billing there is a billing note already in the chart Results & Data Results & Data ([facility]) Vital Signs (Past 12 Hours) Vital Signs Pulse Resp Pulse Ox 02/19/21 07:24 63 18 98 PG Care Time/CCT Total # of Minutes Spent Total Time Spent with Patient: Total time spent is greater than 50% in coordination of care (as documented) at patient's floor/unit and/or counseling patient: Coding Level of Care Code None Diagnoses CAP (community acquired pneumonia) J18.9 Otitis externa H60.90 Hypertension I10 Chronic pain G89.4 Chronic pain type: chronic pain syndrome Anxiety F41.9 Hyperlipidemia E78.5 DVT prophylaxis Z29.9 Chronic respiratory failure with hypoxia J96.11 (1) Chronic pain Chronic pain type: chronic pain syndrome Qualified Code(s): G89.4 - Chronic pain syndrome
[2021-02-19] MEDS: CHLORASEPTIC 1.4% SOLN 180 ML BTL MT PRN (19:20)
[2021-02-19] MEDS: ATORVASTATIN 10 MG TAB PO SCH (21:23)
[2021-02-19] MEDS: ENOXAPARIN INJ 40 MG/0.4 ML SYR SQ SCH (21:25)
[2021-02-19] MEDS: MIRTAZAPINE TAB 15 MG TAB PO SCH (21:27)
[2021-02-19] MEDS: MELATONIN 3 MG TAB PO SCH (21:43)
[2021-02-20] MEDS: ACETAMINOPHEN 500 MG TAB PO SCH ×5 (00:32→23:58)
[2021-02-20] MEDS: LORazepam 0.5 MG TAB PO PRN ×2 (00:33→09:48)
[2021-02-20] MEDS: CHLORASEPTIC 1.4% SOLN 180 ML BTL MT PRN ×2 (00:34→17:57)
[2021-02-20] MEDS: oxyCODONE HCL IR 5 MG TAB (IMMEDIATE RELEASE) PO PRN ×6 (02:48→23:56)
[2021-02-20] MEDS: DOXYCYCLINE HYCLATE 100 MG in DEXTROSE 5% 100 ML IV SCH ×2 (06:01→18:11)
[2021-02-20] MEDS: FAMOTIDINE 20 MG TAB PO SCH (08:01)
[2021-02-20] MEDS: THIAMINE HCL 100 MG TAB PO SCH (08:02)
[2021-02-20] MEDS: CELECOXIB 100 MG CAP PO SCH (08:02)
[2021-02-20] MEDS: CALCIUM 600MG + VIT D 400 IU TAB PO SCH ×2 (08:03→20:59)
[2021-02-20] MEDS: DOCUSATE SODIUM 100 MG CAP PO SCH ×2 (08:04→20:59)
[2021-02-20] MEDS: PROPRANOLOL HCL 10 MG TAB PO SCH ×2 (08:04→21:02)
[2021-02-20] MEDS: GABAPENTIN 300 MG CAP PO SCH ×3 (08:04→21:00)
[2021-02-20] MEDS: FLUTICASONE PROPIONATE NA SPR 16 GM BTL SCH ×2 (08:05→21:00)
--- NOTE | 2021-02-20 15:43 | Electrocardiogram Report ---
Test Reason : Blood Pressure : / mmHG Vent. Rate : 070 BPM Atrial Rate : 070 BPM P-R Int : 140 ms QRS Dur : 076 ms QT Int : 336 ms P-R-T Axes : 046 015 048 degrees QTc Int : 362 ms Normal sinus rhythm Normal ECG When compared with ECG of 17-FEB-2020 19:41, Vent. rate has decreased BY 35 BPM QT has shortened Confirmed by Moi Conteh ([id number]) on 02/20/2021 3:42:44 PM Referred By: Confirmed By:Moi Conteh
[2021-02-20] MEDS: cefTRIAXone SODIUM 1,000 MG in DEXTROSE 5% 50 ML IV SCH (17:57)
[2021-02-20] MEDS ORDERED: POLYETHYLENE (MIRALAX) 17 GM PACK PO ONE (20:06)
[2021-02-20] MEDS: ATORVASTATIN 10 MG TAB PO SCH (20:58)
[2021-02-20] MEDS: ENOXAPARIN INJ 40 MG/0.4 ML SYR SQ SCH (20:59)
[2021-02-20] MEDS: MIRTAZAPINE TAB 15 MG TAB PO SCH (21:01)
[2021-02-20] MEDS: LIDOCAINE 5% 1 PATCH TD SCH (21:17)
[2021-02-20] MEDS: MELATONIN 3 MG TAB PO SCH (21:19)
[2021-02-20] MEDS: methylPREDNISolone 40 MG in SYRINGE 0 ML IV SCH (21:19)
[2021-02-20] MEDS: NYSTATIN SUSP 500,000 U/5 ML UDC PO SCH (21:20)
[2021-02-21] MEDS: LORazepam 0.5 MG TAB PO PRN ×2 (02:30→14:17)
[2021-02-21] MEDS: oxyCODONE HCL IR 5 MG TAB (IMMEDIATE RELEASE) PO PRN ×4 (04:11→22:50)
[2021-02-21] MEDS: DOXYCYCLINE HYCLATE 100 MG in DEXTROSE 5% 100 ML IV SCH ×2 (05:21→18:21)
[2021-02-21] MEDS: methylPREDNISolone 40 MG in SYRINGE 0 ML IV SCH ×2 (08:40→20:06)
[2021-02-21] MEDS: CELECOXIB 100 MG CAP PO SCH (08:40)
[2021-02-21] MEDS: PROPRANOLOL HCL 10 MG TAB PO SCH ×2 (08:40→20:57)
[2021-02-21] MEDS: GABAPENTIN 300 MG CAP PO SCH ×3 (08:40→20:11)
[2021-02-21] MEDS: ACETAMINOPHEN 500 MG TAB PO SCH ×3 (08:40→23:38)
[2021-02-21] MEDS: FAMOTIDINE 20 MG TAB PO SCH (08:40)
[2021-02-21] MEDS: POLYETHYLENE (MIRALAX) 17 GM PACK PO SCH (08:40)
[2021-02-21] MEDS: LIDOCAINE 5% 1 PATCH TD SCH (08:40)
[2021-02-21] MEDS: CALCIUM 600MG + VIT D 400 IU TAB PO SCH ×2 (08:40→20:06)
[2021-02-21] MEDS: DOCUSATE SODIUM 100 MG CAP PO SCH ×2 (08:40→20:05)
[2021-02-21] MEDS: THIAMINE HCL 100 MG TAB PO SCH (08:40)
--- NOTE | 2021-02-21 11:16 | XRay Report ---
XR chest 2V PA/lateral HISTORY: Shortness of breath. eval left lower lobe infiltrate COMPARISON: Chest 02/18/2021. FINDINGS: There is chronic elevation of the left hemidiaphragm, unchanged. Moderate S-shaped scoliosi s of the thoracolumbar spine. Cervical spinal fusion hardware is again noted. No pneumothorax. There are trace bilateral pleural effusions and bibasilar densities, unchanged. The heart remains normal in size. No evidence for pulmonary edema. IMPRESSION: No change in the bibasilar airspace opacities, left greater than right. ACT 112: Negative or not required by law. Electronically signed by: Cash Santoro M.D. 02/21/2021 11:15 AM
[2021-02-21] MEDS: FLUTICASONE PROPIONATE NA SPR 16 GM BTL SCH ×2 (11:40→20:06)
[2021-02-21] MEDS: NYSTATIN SUSP 500,000 U/5 ML UDC PO SCH ×3 (11:41→20:07)
[2021-02-21] MEDS: cefTRIAXone SODIUM 1,000 MG in DEXTROSE 5% 50 ML IV SCH (17:42)
--- NOTE | 2021-02-21 18:35 | Hospitalist Progress Note ---
Date of Service February 21, 2021 Assessment & Plan (1) Chronic respiratory failure with hypoxia: Plan: now acute on chronic, exact cause is not clear, could be his pneumonia worsening underlying copd, could be that the large hiatal hernia is not limiting his vital capacity or even cardiogenic as he has a long alcohol history with unknown Ef and could have cardiomyopathy, will check echo, give lasix, is no steroids and nebs, will ask pulmonary eval to comment on hiatal hernia and pneumonia and also to recommend maximizing medical management (2) CAP (community acquired pneumonia): Plan: CTA chest on 02/18 showed "progressive consolidation within the left lung base most pronounced within the left lower lobe." He does report similar symptoms 2-3 years ago when he had a prior episode of pneumonia. (Looks like in 02/2019 in prior notes.) - Ordered blood cultures, MRSA swab, Legionella urine, procalcitonin not elevated - ceftriaxone and doxycycline givne former smoker will recommend follow up imaging (3) Otitis externa: Plan: otitis externa was not corroborated on intake exam. - Abx as above (4) Hypertension: Plan: BP was 115/75 in the ED. - Continue home propranolol (5) Chronic pain: Plan: Hx of alcohol abuse and chronic opioid use. PDMP shows stable, chronic prescriptions from his PCP. - Continue home oxycodone - Continue home acetaminophen, celecoxib, & gabapentin - Hold home etodolac (repeat NSAID) - Continue GI ppx with famotidine - no signs of active withdrawal at this time (6) Anxiety: Plan: As with opioids, chronic use of benzos. - Continue home mirtazapine - Continue home lorazepam PRN (7) Hyperlipidemia: Plan: - Continue statin (8) DVT prophylaxis: Plan: SCDs - Low DVT risk per admission calculator Admission and Anticipated Discharge Date Admission Date: February 18, 2021 Subjective pt now remains dyspneic to even conversation, does have tobacco history. large hiatial hernia( may create reduction of functional vital capacity) and previous alcohol use to perhaps impact his cardiac function. He notes that his breathing worsens if he bends at the waist Review of Systems Review of Systems: moderate respiratoyr distress and fatigue no headache, no visual changes no speech or swallowing issues continues with chest pain which is pleuritic mild to moderate shortness of breath, productive cough but no wheezes no abdominal pain, nausea or vomiting, diarrhea or constipation no dysuria, hematuria or frequency no focal joint pain or swelling no back pain, CVA tenderness or radicular pain no bruising, bleeding or rashes no focal signs of weakness or numbness or altered sensation no complaints of anxiety or depression.. Physical Exam Physical Exam: The patient appeared well nourished and normally developed. Vital signs as documented. Head exam is normocephalic atraumatic Neck is without JVD, thyromegaly, or carotid bruits. Lungs diminished at the bases, fair but not robust air movement, less air movement at left base Cardiac exam, Rhythm is regular.. No murmurs, rubs or gallops. Abdominal exam reveals normal bowel sounds, soft non tender, no masses Extremities are trace edematous and both pedal pulses are present Neurologic exam is alert and oriented, no focal loss of strength or sensation Skin is without bruises or rashes Psychologically is without concerns for anxiety or depression Results & Data Results & Data ([facility]) Vital Signs (Past 12 Hours) Vital Signs Temp Pulse Resp BP Pulse Ox 02/21/21 15:00 98.4 F 80 18 136/75 94 02/21/21 08:01 98.1 F 70 18 101/65 98 PG Care Time/CCT Total # of Minutes Spent Total Time Spent with Patient: Total time spent is greater than 50% in coordination of care (as documented) at patient's floor/unit and/or counseling patient: Coding Level of Care Code 06628 Subseq Hosp Care Lvl 3 Diagnoses CAP (community acquired pneumonia) J18.9 Otitis externa H60.90 Hypertension I10 Chronic pain G89.4 Chronic pain type: chronic pain syndrome Anxiety F41.9 Hyperlipidemia E78.5 DVT prophylaxis Z29.9 Chronic respiratory failure with hypoxia J96.11 (1) Chronic pain Chronic pain type: chronic pain syndrome Qualified Code(s): G89.4 - Chronic pain syndrome
[2021-02-21] MEDS ORDERED: ALBUT/IPRATROP 3MG/0.5MG NEB 3 ML VIAL NEB SCH (19:00)
[2021-02-21] MEDS ORDERED: FUROSEMIDE 20 MG in SYRINGE 0 ML IV ONE (19:00)
[2021-02-21] MEDS: ENOXAPARIN INJ 40 MG/0.4 ML SYR SQ SCH (20:05)
[2021-02-21] MEDS: ATORVASTATIN 10 MG TAB PO SCH (20:06)
[2021-02-21] MEDS: MIRTAZAPINE TAB 15 MG TAB PO SCH (20:07)
[2021-02-21] MEDS: ALBUT/IPRATROP 3MG/0.5MG NEB 3 ML VIAL NEB SCH (20:17)
[2021-02-21] MEDS: MELATONIN 3 MG TAB PO SCH (20:57)
[2021-02-22] MEDS: oxyCODONE HCL IR 5 MG TAB (IMMEDIATE RELEASE) PO PRN ×5 (03:08→20:08)
[2021-02-22] MEDS: LORazepam 0.5 MG TAB PO PRN ×2 (04:12→14:43)
[2021-02-22] MEDS: DOXYCYCLINE HYCLATE 100 MG in DEXTROSE 5% 100 ML IV SCH ×2 (05:30→17:29)
[2021-02-22] MEDS: ALBUT/IPRATROP 3MG/0.5MG NEB 3 ML VIAL NEB SCH ×4 (07:46→19:43)
[2021-02-22 08:47] LABS: Hematocrit (blood only) 38.6 % (42-52); Mean Corpuscular Hemoglobin 31.9 pg (25-34); Mean Corpuscular Hgb Conc 33.7 g/dL (32-36); Mean Corpuscular Volume 94.6 fL (80-100); Mean Platelet Volume 10.3 fL (7.4-10.4); Platelet Count 172 K/uL (130-400); RDW Coefficient of Variation 12.3 % (11.5-14.5); RDW Standard Deviation 42.1 fL (36.4-46.3); Red Blood Count 4.08 M/uL (4.7-6.1); White Blood Count 7.48 K/uL (4.8-10.8)
[2021-02-22] MEDS: ACETAMINOPHEN 500 MG TAB PO SCH ×2 (08:47→17:28)
[2021-02-22] MEDS: POLYETHYLENE (MIRALAX) 17 GM PACK PO SCH (08:47)
[2021-02-22] MEDS: CELECOXIB 100 MG CAP PO SCH (08:48)
[2021-02-22] MEDS: CALCIUM 600MG + VIT D 400 IU TAB PO SCH ×2 (08:48→20:07)
[2021-02-22] MEDS: FAMOTIDINE 20 MG TAB PO SCH (08:48)
[2021-02-22] MEDS: DOCUSATE SODIUM 100 MG CAP PO SCH ×2 (08:48→20:08)
[2021-02-22] MEDS: FLUTICASONE PROPIONATE NA SPR 16 GM BTL SCH ×3 (08:48→20:09)
[2021-02-22] MEDS: GABAPENTIN 300 MG CAP PO SCH ×3 (08:48→20:09)
[2021-02-22] MEDS: PROPRANOLOL HCL 10 MG TAB PO SCH ×2 (08:49→20:09)
[2021-02-22] MEDS: NYSTATIN SUSP 500,000 U/5 ML UDC PO SCH ×4 (08:49→20:09)
[2021-02-22] MEDS: methylPREDNISolone 40 MG in SYRINGE 0 ML IV SCH (08:49)
[2021-02-22] MEDS: THIAMINE HCL 100 MG TAB PO SCH (08:50)
[2021-02-22] MEDS: LIDOCAINE 5% 1 PATCH TD SCH (08:51)
[2021-02-22 09:24] LABS: Albumin Level 3.8 gm/dl (3.4-5.0); BUN Creatinine Ratio 23.8 (10-20); Calcium 9.2 mg/dl (8.5-10.1); Creatinine Clr Calc Pharmacy 77.2 ml/min; Est GFR (African American) 103.7 ml/min; Est GFR (Non-African American) 89.5 ml/min
[2021-02-22 09:32] LABS: Albumin Globulin Ratio 1.1 (0.9-2); Bilirubin,Total 0.3 mg/dl (0.2-1); Globulin 3.3 gm/dl (2.5-4.0); Total Protein 7.1 gm/dl (6.4-8.2)
[2021-02-22 09:40] LABS: Folate (Folic Acid) 8.1 ng/ml (>5.38)
--- NOTE | 2021-02-22 13:00 | Pulmonary Consultation ---
Date of Consultation February 22, 2021 Assessment & Plan (1) Chronic respiratory failure with hypoxia: (2) COPD (chronic obstructive pulmonary disease): (3) Elevated hemidiaphragm: CT chest 02/15/2021 personally reviewed: Minimal mosaicism appreciated. Elevated left hemidiaphragm Left lower lobe dependent atelectasis, seems to be worse compared to CAT scan done 02/2020 No mediastinal lymphadenopathy Cardiomegaly --Acute on chronic hypoxic respiratory failure Multifactorial Patient does have significant elevation of the left hemidiaphragm He also has atelectasis of the left lower lobe I personally do not see any clear infiltrate. It seems to be worsening of the atelectasis COVID-19 PCR negative Procalcitonin negative We will do supplementation to keep oxygen saturation between 90-92% --Chronic elevation of the left hemidiaphragm I think patient will benefit from diaphragmatic plication surgery It should be considered Incentive spirometry will be beneficial --COPD [id number] smoking history Quit at the age of 39 PFTs as an outpatient Start the patient on Anoro to be used on a daily basis --History of COVID-19 pneumonia June-July 2020 Did not need any treatment Plan: Add Anoro inhaler to be used on a daily basis Incentive spirometry Recommend considering CT surgery consult for possible plication of the left hemidiaphragm Decrease Solu-Medrol to once daily. Please note the above document was generated using voice recognition software. It may contain grammatical, syntax or spelling errors.Any formal questions or concerns about the content, text or information contained within the body of t his dictation should be directly addressed to the provider for clarification. History of Present Illness Attending Physician: Cezar Cuevas MD History of Present Illness 65-year-old male past medical history of chronic hypoxic respiratory failure on 2 L nasal cannula at home presented to the hospital with complaints of worsening shortness of breath going on since a month progressively getting worse Past medical history: Elevated left hemidiaphragm, dyslipidemia, GERD Patient had a history of COVID-19 infection back in July 2020 where he did not need any treatment for. Time of examination patient says that he has his hoarseness of voice only a week ago. He has been complaining of shortness of breath going on since last 3 months progressively getting worse but he had to come to the hospital. He denies any fever or chills. Does complain of occasional cough. Not bringing up any phlegm No dysuria, or diarrhea. No headache, no nausea, no vomiting. Social history: [id number] smoking history, quit at the age of 39, denies any illicit drug use Allergies Allergy/AdvReac Type Severity Reaction Status Date / Time erythromycin base Allergy Intermediate Rash, Verified 02/18/21 14:21 throat swelling, difficulty breathing Home Medications Medication Instructions Recorded Confirmed Type docusate sodium 100 mg capsule 100 mg PO BID 01/02/20 02/18/21 History (Colace) calcium carbonate-vitamin D3 250 1 tab PO BID 04/03/20 02/18/21 History mg-125 unit tablet (Oyster Shell Calcium-Vitamin D3) mirtazapine 30 mg tablet 30 mg PO HS 04/03/20 02/18/21 History ondansetron HCl 4 mg tablet 4 mg PO Q4H PRN tab 04/03/20 02/18/21 History propranolol 10 mg tablet 5 mg PO BID tab 04/03/20 02/18/21 History thiamine HCl (vitamin B1) 100 mg 100 mg PO QAM 04/03/20 02/18/21 History tablet acetaminophen 500 mg tablet 1,000 mg PO TID #180 tab 04/06/20 02/18/21 Rx atorvastatin 10 mg tablet 10 mg PO QPM 04/10/20 02/18/21 History gabapentin 300 mg capsule 300 mg PO TID #90 cap 04/17/20 02/18/21 Rx sennosides 8.6 mg-docusate sodium 1 tab-cap PO QDL 04/17/20 02/18/21 History 50 mg capsule (Senna Plus) artificial tears(hypromellose) 0.3 2 drp OPHTHALMIC (EYE) TID PRN #15 07/24/20 02/18/21 Rx % eye drops ml cetirizine 10 mg tablet (Zyrtec) 10 mg PO DAILY PRN #30 tab 08/16/20 02/18/21 Rx albuterol sulfate 90 mcg/actuation 2 puff INHALATION Q6H PRN #8.5 g 09/24/20 02/18/21 Rx aerosol inhaler sodium chloride 0.65 % nasal spray 1 spray INTRANASAL QID PRN #30 ml 10/29/20 02/18/21 Rx aerosol (Saline Nasal) bisacodyl 10 mg rectal suppository 10 mg SD DAILY PRN #12 ea 11/30/20 02/18/21 Rx (Dulcolax (bisacodyl)) triamcinolone acetonide 0.1 % 1 applic TOPICAL BID PRN #15 g 12/13/20 02/18/21 Rx topical cream famotidine 20 mg tablet 20 mg PO DAILY #30 tab 01/24/21 02/18/21 Rx lorazepam 0.5 mg tablet 0.5 mg PO BID PRN #60 tab 02/15/21 02/18/21 Rx oxycodone 10 mg tablet 10 mg PO Q4H PRN #90 tab 02/15/21 02/18/21 Rx celecoxib 100 mg capsule 100 mg PO DAILY 02/18/21 02/18/21 History etodolac 200 mg capsule 200 mg PO BID PRN 02/18/21 02/18/21 History melatonin 3 mg tablet 3 mg PO HS 02/18/21 02/18/21 History Patient History Medical History Anxiety Arthritis Chronic back pain Chronic, continuous use of opioids Degenerative disc disease Diverticular disease Hearing difficulty History of recent fall 02/2020 treated at [facility]. currently at [facility] in [place], [place] Hyperlipidemia Hypertension Neuropathy bilateral legs Osteoarthritis Pneumonia ~2017 Spinal stenosis of lumbar region Stenosis of cervical spine with myelopathy Stomach ulcer hx Venous reflux Diagnosed 10/2018 during admission for what was initially thought to be cellulitis. US showed venous reflux, and cellulitis-appearing symptoms felt 2/2 "waxing/waning symptoms depending on how long he has had his feet down." Surgical History Foreign body of right eye removal of a small piece of metal about ~1979 History of appendectomy History of bowel resection r/t diverticulitis History of colonoscopy History of esophagogastroduodenoscopy (EGD) History of left inguinal hernia repair History of oral surgery all teeth removed History of right inguinal hernia repair History of tonsillectomy Hx of umbilical hernia repair Family History Mother Anxiety Depression Cardiac disorder Hypertension Diabetes Mesothelioma Father Mesothelioma Diabetes Brother Diabetes Other No significant family history Social History Smoking Status: Former smoker Tobacco Type: Cigarettes Smoking End Date: 1979; Second Hand Exposure: No; Do You Dip or Chew Tobacco: No; Tobacco Cessation Education Requested by Patient: No Hx Alcohol Use: Yes Alcohol type: hard liquor Hx Substance Use: Yes Last Used Substance: Just Prior to Arrival Substance Use Type Other:: methadone and oxycodone - states he has not had methadone since 04/06/20 Preferred Language: Brazilian Communication Ability: Effective Visual Impairment: Limited Hearing Ability: Normal Special Event Assistant Required: No Beliefs That Will Affect Care: L[employer] L[employer] Day Beliefs: Baptist marital status: Unknown Current Living Situation: Other [facility] Other Information That Helps Us Care for You: No Feels Safe at Home: Yes Safety Concerns: Feels Safe At This Time Childhood Exposure to Second-Hand Smoke: Yes Dental Care, Regularly: No Physical Activity Frequency: Does not Exercise Seatbelt Use: always Sunscreen Use: No Assistive Devices: Oxygen - Continuous Review of Systems Review of Systems: All systems reviewed & are unremarkable except as noted in HPI & below Physical Exam Physical Exam: Constitutional: No acute distress HEENT: EOMI, PERRLA, hoarseness of voice, posterior cervical hump Respiratory system: Decreased air entry bilaterally, more decreased on the left side, no wheeze, rhonchi, no crackles CVS: S1-S2 positive, no murmurs or gallops Abdomen: Soft, nontender, nondistended, positive bowel sounds x4 Extremities: +2 pulses bilaterally radialis/ dorsalis pedis, no cyanosis, no edema Neuro: Awake alert oriented x3 Psych: Normal mood and affect G/U: No Harris Skin: no rashes, warm and dry Lymphatic: no cervical or axillary lymphadenopathy Results & Data Results & Data ([facility]) Vital Signs (Past 12 Hours) Vital Signs Temp Pulse Resp BP Pulse Ox 02/22/21 11:29 36.4 C L 73 16 114/77 93 02/22/21 11:20 68 18 96 02/22/21 08:44 37.0 C 78 18 112/78 96 02/22/21 07:46 74 20 95 02/22/21 08:34 02/22/21 08:34 PG Care Time/CCT Total # of Minutes Spent Total Time Spent with Patient: Total time spent is greater than 50% in coordination of care (as documented) at patient's floor/unit and/or counseling patient: Coding Level of Care Code 20745 Initial Inpt Care Lvl 3 Diagnoses Chronic respiratory failure with hypoxia J96.11 COPD (chronic obstructive pulmonary disease) J44.9 Elevated hemidiaphragm J98.6
[2021-02-22] MEDS: UMECLIDINIUM/VILANTEROL 62.5/25MCG 7 PUFFS/INHALER INH SCH (14:43)
[2021-02-22] MEDS: cefTRIAXone SODIUM 1,000 MG in DEXTROSE 5% 50 ML IV SCH (17:28)
--- NOTE | 2021-02-22 17:46 | XCELERA ---
[id number]
--- NOTE | 2021-02-22 17:58 | Hospitalist Progress Note ---
Date of Service February 22, 2021 Assessment & Plan (1) Chronic respiratory failure with hypoxia: Plan: now acute on chronic, exact cause is not clear, could be his pneumonia worsening underlying copd, could be that the large hiatal hernia is not limiting his vital capacity or even cardiogenic as he has a long alcohol history ehco is normal, did get better with lasix pulmonary eval reduced steroids recommended trilogy at home and added umeclidinium/vilanterol will follow up as outpt consider CT eval for hiatal hernia repair (2) CAP (community acquired pneumonia): Plan: CTA chest on 02/18 showed "progressive consolidation within the left lung base most pronounced within the left lower lobe." He does report similar symptoms 2-3 years ago when he had a prior episode of pneumonia. (Looks like in 02/2019 in prior notes.) - Ordered blood cultures, MRSA swab, Legionella urine, procalcitonin not elevated - ceftriaxone and doxycycline given former smoker will recommend follow up imaging (3) Otitis externa: Plan: otitis externa was not corroborated on intake exam. - Abx as above (4) Hypertension: Plan: BP was 115/75 in the ED. - Continue home propranolol (5) Chronic pain: Plan: Hx of alcohol abuse and chronic opioid use. PDMP shows stable, chronic prescriptions from his PCP. - Continue home oxycodone - Continue home acetaminophen, celecoxib, & gabapentin - Hold home etodolac (repeat NSAID) - Continue GI ppx with famotidine - no signs of active withdrawal at this time (6) Anxiety: Plan: As with opioids, chronic use of benzos. - Continue home mirtazapine - Continue home lorazepam PRN (7) Hyperlipidemia: Plan: - Continue statin (8) DVT prophylaxis: Plan: SCDs - Low DVT risk per admission calculator Admission and Anticipated Discharge Date Admission Date: February 18, 2021 Subjective pt with some improved with Lasix and inhaled bronchodilators and anticholinergic, does have tobacco history. large hiatal hernia( may create reduction of functional vital capacity) and previous alcohol use to perhaps impact his cardiac function. He notes that his breathing worsens if he bends at the waist Review of Systems Review of Systems: moderate respiratoyr distress and fatigue no headache, no visual changes no speech or swallowing issues continues with chest pain which is pleuritic mild to moderate shortness of breath, productive cough but no wheezes no abdominal pain, nausea or vomiting, diarrhea or constipation no dysuria, hematuria or frequency no focal joint pain or swelling no back pain, CVA tenderness or radicular pain no bruising, bleeding or rashes no focal signs of weakness or numbness or altered sensation no complaints of anxiety or depression.. Physical Exam Physical Exam: The patient appeared well nourished and normally developed. Vital signs as documented. Head exam is normocephalic atraumatic Neck is without JVD, thyromegaly, or carotid bruits. Lungs diminished at the bases, fair but not robust air movement, less air movement at left base Cardiac exam, Rhythm is regular.. No murmurs, rubs or gallops. Abdominal exam reveals normal bowel sounds, soft non tender, no masses Extremities are trace edematous and both pedal pulses are present Neurologic exam is alert and oriented, no focal loss of strength or sensation Skin is without bruises or rashes Psychologically is without concerns for anxiety or depression Results & Data Results & Data ([facility]) Vital Signs (Past 12 Hours) Vital Signs Temp Pulse Resp BP Pulse Ox 02/22/21 16:11 98.8 F 75 16 100/62 96 02/22/21 15:24 77 18 97 02/22/21 11:29 97.5 F L 73 16 114/77 93 02/22/21 11:20 68 18 96 02/22/21 08:44 98.6 F 78 18 112/78 96 02/22/21 07:46 74 20 95 PG Care Time/CCT Total # of Minutes Spent Total Time Spent with Patient: Total time spent is greater than 50% in coordination of care (as documented) at patient's floor/unit and/or counseling patient: Coding Level of Care Code 44646 Subseq Hosp Care Lvl 2 Diagnoses Chronic respiratory failure with hypoxia J96.11 CAP (community acquired pneumonia) J18.9 Otitis externa H60.90 Hypertension I10 Chronic pain G89.4 Chronic pain type: chronic pain syndrome Anxiety F41.9 Hyperlipidemia E78.5 DVT prophylaxis Z29.9 (1) Chronic pain Chronic pain type: chronic pain syndrome Qualified Code(s): G89.4 - Chronic pain syndrome
[2021-02-22] MEDS: busPIRone 5 MG TAB PO SCH (20:07)
[2021-02-22] MEDS: MIRTAZAPINE TAB 15 MG TAB PO SCH (20:08)
[2021-02-22] MEDS: ATORVASTATIN 10 MG TAB PO SCH (20:08)
[2021-02-22] MEDS: ENOXAPARIN INJ 40 MG/0.4 ML SYR SQ SCH (20:09)
[2021-02-22] MEDS: CHLORASEPTIC 1.4% SOLN 180 ML BTL MT PRN (20:09)
[2021-02-22] MEDS: MELATONIN 3 MG TAB PO SCH (20:09)
[2021-02-23] MEDS: oxyCODONE HCL IR 5 MG TAB (IMMEDIATE RELEASE) PO PRN ×6 (00:23→21:10)
[2021-02-23] MEDS: ACETAMINOPHEN 500 MG TAB PO SCH ×3 (00:23→15:46)
[2021-02-23] MEDS: DOXYCYCLINE HYCLATE 100 MG in DEXTROSE 5% 100 ML IV SCH ×2 (04:29→17:01)
[2021-02-23] MEDS: LORazepam 0.5 MG TAB PO PRN ×2 (06:26→21:15)
[2021-02-23] MEDS: ALBUT/IPRATROP 3MG/0.5MG NEB 3 ML VIAL NEB SCH (07:38)
[2021-02-23] MEDS: FAMOTIDINE 20 MG TAB PO SCH (08:03)
[2021-02-23] MEDS: CALCIUM 600MG + VIT D 400 IU TAB PO SCH ×2 (08:03→21:12)
[2021-02-23] MEDS: DOCUSATE SODIUM 100 MG CAP PO SCH ×2 (08:03→21:11)
[2021-02-23] MEDS: busPIRone 5 MG TAB PO SCH ×2 (08:03→21:10)
[2021-02-23] MEDS: GABAPENTIN 300 MG CAP PO SCH ×3 (08:03→21:11)
[2021-02-23] MEDS: CELECOXIB 100 MG CAP PO SCH (08:03)
[2021-02-23] MEDS: THIAMINE HCL 100 MG TAB PO SCH (08:03)
[2021-02-23] MEDS: PROPRANOLOL HCL 10 MG TAB PO SCH ×2 (08:03→21:12)
[2021-02-23] MEDS: UMECLIDINIUM/VILANTEROL 62.5/25MCG 7 PUFFS/INHALER INH SCH (08:04)
[2021-02-23] MEDS: FLUTICASONE PROPIONATE NA SPR 16 GM BTL SCH ×2 (08:04→21:12)
[2021-02-23] MEDS: POLYETHYLENE (MIRALAX) 17 GM PACK PO SCH (08:05)
[2021-02-23] MEDS ORDERED: ALBUT/IPRATROP 3MG/0.5MG NEB 3 ML VIAL NEB PRN (08:10)
[2021-02-23] MEDS: LIDOCAINE 5% 1 PATCH TD SCH (08:44)
[2021-02-23] MEDS: NYSTATIN SUSP 500,000 U/5 ML UDC PO SCH ×3 (08:45→21:13)
[2021-02-23] MEDS ORDERED: methylPREDNISolone 40 MG in SYRINGE 0 ML IV SCH (09:00)
--- NOTE | 2021-02-23 14:56 | Pulmonology Progress Note ---
Date of Service February 23, 2021 Assessment & Plan (1) Chronic respiratory failure with hypoxia: (2) COPD (chronic obstructive pulmonary disease): (3) Elevated hemidiaphragm: Plan: CT chest 02/15/2021 personally reviewed: Minimal mosaicism appreciated. Elevated left hemidiaphragm Left lower lobe dependent atelectasis, seems to be worse compared to CAT scan done 02/2020 No mediastinal lymphadenopathy Cardiomegaly --Acute on chronic hypoxic respiratory failure Multifactorial Patient does have significant elevation of the left hemidiaphragm He also has atelectasis of the left lower lobe I personally do not see any clear infiltrate. It seems to be worsening of the atelectasis COVID-19 PCR negative Procalcitonin negative We will do supplementation to keep oxygen saturation between 90-92% --Chronic elevation of the left hemidiaphragm I think patient will benefit from diaphragmatic plication surgery It should be considered Incentive spirometry will be beneficial --COPD [id number] smoking history Quit at the age of 39 PFTs as an outpatient Start the patient on Anoro to be used on a daily basis --History of COVID-19 pneumonia June-July 2020 Did not need any treatment Plan: Add incentive spirometry Continue with Anoro PT OT for the patient will be helpful Starting tomorrow start tapering prednisone 20 Solu-Medrol Please note the above document was generated using voice recognition software. It may contain grammatical, syntax or spelling errors.Any formal questions or concerns about the content, text or information contained within the body of this dictation should be directly addressed to the provider for clarification. Admission and Anticipated Discharge Date Admission Date: February 18, 2021 Subjective Patient seen and examined at bedside. No acute distress. Patient states that he is more short of breath on exertion. He has been using flutter valve bringing up some clear phlegm. Denies any hemoptysis. He says the shortness of breath is worse when he is bending over and trying to reach at his leg. Fair appetite Hoarseness of voice still persists Review of Systems Review of Systems: All systems reviewed & are unremarkable except as noted in Subjective Physical Exam Physical Exam: Constitutional: No acute distress HEENT: EOMI, PERRLA, hoarseness of voice, posterior cervical hump Respiratory system: Decreased air entry bilaterally, more decreased on the left side, no wheeze, rhonchi, no crackles CVS: S1-S2 positive, no murmurs or gallops Abdomen: Soft, nontender, nondistended, positive bowel sounds x4 Extremities: +2 pulses bilaterally radialis/ dorsalis pedis, no cyanosis, no edema Neuro: Awake alert oriented x3 Psych: Normal mood and affect G/U: No Harris Skin: no rashes, warm and dry Lymphatic: no cervical or axillary lymphadenopathy Results & Data Results & Data ([facility]) Vital Signs (Past 12 Hours) Vital Signs Temp Pulse Resp BP Pulse Ox 02/23/21 08:01 36.3 C L 64 18 119/81 93 02/23/21 07:38 82 17 96 02/22/21 08:34 02/22/21 08:34 PG Care Time/CCT Total # of Minutes Spent Total Time Spent with Patient: Total time spent is greater than 50% in coordination of care (as documented) at patient's floor/unit and/or counseling patient: Coding Level of Care Code 89962 Subseq Hosp Care Lvl 3 Diagnoses Chronic respiratory failure with hypoxia J96.11 COPD (chronic obstructive pulmonary disease) J44.9 Elevated hemidiaphragm J98.6
[2021-02-23] MEDS: cefTRIAXone SODIUM 1,000 MG in DEXTROSE 5% 50 ML IV SCH (17:01)
--- NOTE | 2021-02-23 18:50 | Hospitalist Progress Note ---
Date of Service February 23, 2021 Assessment & Plan (1) Chronic respiratory failure with hypoxia: Plan: now acute on chronic, exact cause is not clear, could be his pneumonia worsening underlying copd, could be that the large hiatal hernia is not limiting his vital capacity or even cardiogenic as he has a long alcohol history ehco is normal, did get better with lasix pulmonary eval reduced steroids recommended trilogy at home and added umeclidinium/vilanterol will follow up as outpt consider CT surgery to eval for hiatal hernia repair (2) CAP (community acquired pneumonia): Plan: CTA chest on 02/18 showed "progressive consolidation within the left lung base most pronounced within the left lower lobe." He does report similar symptoms 2-3 years ago when he had a prior episode of pneumonia. (Looks like in 02/2019 in prior notes.) - Ordered blood cultures, MRSA swab, Legionella urine, procalcitonin not elevated - ceftriaxone and doxycycline we will de-escalate to just doxycycline given former smoker will recommend follow up imaging (3) Otitis externa: Plan: otitis externa was not corroborated on intake exam. - Abx as above (4) Hypertension: Plan: BP was 115/75 in the ED. - Continue home propranolol (5) Chronic pain: Plan: Hx of alcohol abuse and chronic opioid use. PDMP shows stable, chronic prescriptions from his PCP. - Continue home oxycodone - Continue home acetaminophen, celecoxib, & gabapentin - Hold home etodolac (repeat NSAID) - Continue GI ppx with famotidine - no signs of active withdrawal at this time (6) Anxiety: Plan: As with opioids, chronic use of benzos. - Continue home mirtazapine - Continue home lorazepam PRN (7) Hyperlipidemia: Plan: - Continue statin (8) DVT prophylaxis: Plan: SCDs - Low DVT risk per admission calculator Admission and Anticipated Discharge Date Admission Date: February 18, 2021 Subjective Patient still feels fairly short of breath. His biggest concern is how he would get transportation to tertiary center for his consideration diaphragmatic surgery however I do not feel he is acute to necessitate acute hospital hospital transfer. Patient is discouraged with regard to this. I asked case management to look to see if the place where he lives would afford him transportation for outpatient appointments as we have no CT surgeon at our facility. Patient remains fairly short of breath pulmonary medicine is tapering steroids and adjusting outpatient inhalers. Review of Systems Review of Systems: moderate respiratoyr distress and fatigue no headache, no visual changes no speech or swallowing issues continues with chest pain which is pleuritic mild to moderate shortness of breath, productive cough but no wheezes no abdominal pain, nausea or vomiting, diarrhea or constipation no dysuria, hematuria or frequency no focal joint pain or swelling no back pain, CVA tenderness or radicular pain no bruising, bleeding or rashes no focal signs of weakness or numbness or altered sensation no complaints of anxiety or depression.. Physical Exam Physical Exam: The patient appeared well nourished and normally developed. Vital signs as documented. Head exam is normocephalic atraumatic Neck is without JVD, thyromegaly, or carotid bruits. Lungs diminished at the bases, fair but not robust air movement, less air movement at left base Cardiac exam, Rhythm is regular.. No murmurs, rubs or gallops. Abdominal exam reveals normal bowel sounds, soft non tender, no masses Extremities are trace edematous and both pedal pulses are present Neurologic exam is alert and oriented, no focal loss of strength or sensation Skin is without bruises or rashes Psychologically is without concerns for anxiety or depression Results & Data Results & Data ([facility]) Vital Signs (Past 12 Hours) Vital Signs Temp Pulse Resp BP BP Pulse Ox 02/23/21 15:13 98.1 F 88 20 117/78 93 02/23/21 08:01 97.3 F L 64 18 119/81 93 02/23/21 07:38 82 17 96 PG Care Time/CCT Total # of Minutes Spent Total Time Spent with Patient: Total time spent is greater than 50% in coordination of care (as documented) at patient's floor/unit and/or counseling patient: Coding Level of Care Code 97287 Subseq Hosp Care Lvl 2 Diagnoses Chronic respiratory failure with hypoxia J96.11 CAP (community acquired pneumonia) J18.9 Otitis externa H60.90 Hypertension I10 Chronic pain G89.4 Chronic pain type: chronic pain syndrome Anxiety F41.9 Hyperlipidemia E78.5 DVT prophylaxis Z29.9 (1) Chronic pain Chronic pain type: chronic pain syndrome Qualified Code(s): G89.4 - Chronic pain syndrome
[2021-02-23] MEDS: MELATONIN 3 MG TAB PO SCH (21:10)
[2021-02-23] MEDS: ENOXAPARIN INJ 40 MG/0.4 ML SYR SQ SCH (21:10)
[2021-02-23] MEDS: ATORVASTATIN 10 MG TAB PO SCH (21:11)
[2021-02-23] MEDS: MIRTAZAPINE TAB 15 MG TAB PO SCH (21:11)
[2021-02-23] MEDS: CHLORASEPTIC 1.4% SOLN 180 ML BTL MT PRN (21:15)
[2021-02-24] MEDS: oxyCODONE HCL IR 5 MG TAB (IMMEDIATE RELEASE) PO PRN ×6 (01:11→23:16)
[2021-02-24] MEDS: ACETAMINOPHEN 500 MG TAB PO SCH ×4 (01:11→23:17)
[2021-02-24] MEDS: DOXYCYCLINE HYCLATE 100 MG CAP PO SCH ×2 (05:15→18:12)
[2021-02-24] MEDS: LORazepam 0.5 MG TAB PO PRN ×2 (07:26→15:01)
[2021-02-24] MEDS: CELECOXIB 100 MG CAP PO SCH (07:31)
[2021-02-24] MEDS: busPIRone 5 MG TAB PO SCH ×2 (07:31→21:09)
[2021-02-24] MEDS: predniSONE 20 MG TAB PO SCH (07:31)
[2021-02-24] MEDS: DOCUSATE SODIUM 100 MG CAP PO SCH ×2 (07:31→21:07)
[2021-02-24] MEDS: THIAMINE HCL 100 MG TAB PO SCH (07:31)
[2021-02-24] MEDS: CALCIUM 600MG + VIT D 400 IU TAB PO SCH ×2 (07:32→21:07)
[2021-02-24] MEDS: FAMOTIDINE 20 MG TAB PO SCH (07:32)
[2021-02-24] MEDS: POLYETHYLENE (MIRALAX) 17 GM PACK PO SCH (07:32)
[2021-02-24] MEDS: LIDOCAINE 5% 1 PATCH TD SCH (07:32)
[2021-02-24] MEDS: UMECLIDINIUM/VILANTEROL 62.5/25MCG 7 PUFFS/INHALER INH SCH (07:32)
[2021-02-24] MEDS: NYSTATIN SUSP 500,000 U/5 ML UDC PO SCH ×3 (07:32→21:10)
[2021-02-24] MEDS: GABAPENTIN 300 MG CAP PO SCH ×3 (07:33→21:07)
[2021-02-24] MEDS: FLUTICASONE PROPIONATE NA SPR 16 GM BTL SCH ×2 (07:33→21:09)
[2021-02-24] MEDS: CHLORASEPTIC 1.4% SOLN 180 ML BTL MT PRN (07:35)
[2021-02-24] MEDS: PROPRANOLOL HCL 10 MG TAB PO SCH ×2 (07:36→21:08)
--- NOTE | 2021-02-24 08:20 | XRay Report ---
XR chest 1V portable HISTORY: Shortness of breath. COMPARISON: Chest 02/21/2021. FINDINGS: No pneumothorax. Emphysema. S-shaped scoliosis of the thoracolumbar spine. The cervical spi nal fusion hardware again noted. There is chronic elevation of the left hemidiaphragm. Trace bilatera l pleural effusions and bibasilar linear densities persist. The heart is stable in size. No evidence for pulmonary edema. IMPRESSION: No change in the bibasilar airspace opacities, left greater than right. This may represent atelectasi s or pneumonia. ACT 112: Negative or not required by law. Electronically signed by: Cash Santoro M.D. 02/24/2021 8:19 AM
--- NOTE | 2021-02-24 14:16 | Pulmonology Progress Note ---
Date of Service February 24, 2021 Assessment & Plan (1) Chronic respiratory failure with hypoxia: (2) COPD (chronic obstructive pulmonary disease): (3) Elevated hemidiaphragm: Plan: CT chest 02/15/2021 personally reviewed: Minimal mosaicism appreciated. Elevated left hemidiaphragm Left lower lobe dependent atelectasis, seems to be worse compared to CAT scan done 02/2020 No mediastinal lymphadenopathy Cardiomegaly --Acute on chronic hypoxic respiratory failure Multifactorial Patient does have significant elevation of the left hemidiaphragm He also has atelectasis of the left lower lobe I personally do not see any clear infiltrate. It seems to be worsening of the atelectasis COVID-19 PCR negative Procalcitonin negative We will do supplementation to keep oxygen saturation between 90-92% --Chronic elevation of the left hemidiaphragm I think patient will benefit from diaphragmatic plication surgery It should be considered Incentive spirometry will be beneficial --COPD [id number] smoking history Quit at the age of 39 PFTs as an outpatient Start the patient on Anoro to be used on a daily basis --History of COVID-19 pneumonia June-July 2020 Did not need any treatment Plan: Trial of BiPAP tonight. Repeat ABG tomorrow If the patient's PCO2 is still elevated he might be considered for AVAPS machine. Please note the above document was generated using voice recognition software. It may contain grammatical, syntax or spelling errors.Any formal questions or concerns about the content, text or information contained within the body of this dictation should be directly addressed to the provider for clarification. Admission and Anticipated Discharge Date Admission Date: February 18, 2021 Subjective Patient seen and examined at bedside. No acute distress, no adverse events overnight. Patient was lying on the left side. States that he is feeling better today. Denies any chest pain, no headache, no nausea, no vomiting. Has been using flutter valve bringing about a bit of clear phlegm. No hemoptysis. Fair effort. Review of Systems Review of Systems: All systems reviewed & are unremarkable except as noted in Subjective Physical Exam Physical Exam: Constitutional: No acute distress HEENT: EOMI, PERRLA, hoarseness of voice, posterior cervical hump Respiratory system: Decreased air entry bilaterally, more decreased on the left side, no wheeze, rhonchi, no crackles CVS: S1-S2 positive, no murmurs or gallops Abdomen: Soft, nontender, nondistended, positive bowel sounds x4 Extremities: +2 pulses bilaterally radialis/ dorsalis pedis, no cyanosis, no edema Neuro: Awake alert oriented x3 Psych: Normal mood and affect G/U: No Harris Skin: no rashes, warm and dry Lymphatic: no cervical or axillary lymphadenopathy Results & Data Results & Data ([facility]) Vital Signs (Past 12 Hours) Vital Signs Temp Pulse Resp BP Pulse Ox 02/24/21 07:33 36.5 C 61 18 114/79 95 02/22/21 08:34 02/22/21 08:34 PG Care Time/CCT Total # of Minutes Spent Total Time Spent with Patient: Total time spent is greater than 50% in coordination of care (as documented) at patient's floor/unit and/or counseling patient: Coding Level of Care Code 94652 Subseq Hosp Care Lvl 3 Diagnoses Chronic respiratory failure with hypoxia J96.11 COPD (chronic obstructive pulmonary disease) J44.9 Elevated hemidiaphragm J98.6
--- NOTE | 2021-02-24 17:07 | Hospitalist Progress Note ---
Date of Service February 24, 2021 Assessment & Plan (1) Chronic respiratory failure with hypoxia: Plan: now acute on chronic, exact cause is not clear, could be his pneumonia worsening underlying copd, could be that the large hiatal hernia is not limiting his vital capacity or even cardiogenic as he has a long alcohol history ehco is normal, did get better with lasix pulmonary eval reduced steroids recommended trilogy at home and added umeclidinium/vilanterol will follow up as outpt consider CT surgery to eval for hiatal hernia repair (2) CAP (community acquired pneumonia): Plan: CTA chest on 02/18 showed "progressive consolidation within the left lung base most pronounced within the left lower lobe." He does report similar symptoms 2-3 years ago when he had a prior episode of pneumonia. (Looks like in 02/2019 in prior notes.) - Ordered blood cultures, MRSA swab, Legionella urine, procalcitonin not elevated - ceftriaxone and doxycycline we will de-escalate to just doxycycline given former smoker will recommend follow up imaging (3) Hypertension: Plan: BP was 115/75 in the ED. - Continue home propranolol (4) Chronic pain: Plan: Hx of alcohol abuse and chronic opioid use. PDMP shows stable, chronic prescriptions from his PCP. - Continue home oxycodone - Continue home acetaminophen, celecoxib, & gabapentin - Hold home etodolac (repeat NSAID) - Continue GI ppx with famotidine - no signs of active withdrawal at this time (5) Anxiety: Plan: As with opioids, chronic use of benzos. - Continue home mirtazapine - Continue home lorazepam PRN (6) Hyperlipidemia: Plan: - Continue statin (7) DVT prophylaxis: Plan: SCDs - Low DVT risk per admission calculator Plan: anticipate return to [facility] thursday Admission and Anticipated Discharge Date Admission Date: February 18, 2021 Subjective Patient still feels fairly short of breath. His biggest concern is how he would get transportation to tertiary center for his consideration diaphragmatic surgery however I do not feel he is acute to necessitate acute hospital hospital transfer. Patient is discouraged with regard to this. I asked case management to look to see if the place where he lives would afford him transportation for outpatient appointments as we have no CT surgeon at our facility. Patient remains fairly short of breath pulmonary medicine is tapering steroids and adjusting outpatient inhalers. maybe compa or [facility] may have outreach here, that would make at least the initial eval less of a trip, however the pt will need to recover prior to considering surgery. trilogy vent arranged for discharge by CM Review of Systems Review of Systems: moderate respiratoyr distress and fatigue no headache, no visual changes no speech or swallowing issues continues with chest pain which is pleuritic mild to moderate shortness of breath, productive cough but no wheezes no abdominal pain, nausea or vomiting, diarrhea or constipation no dysuria, hematuria or frequency no focal joint pain or swelling no back pain, CVA tenderness or radicular pain no bruising, bleeding or rashes no focal signs of weakness or numbness or altered sensation no complaints of anxiety or depression.. Physical Exam Physical Exam: The patient appeared well nourished and normally developed. Vital signs as documented. Head exam is normocephalic atraumatic Neck is without JVD, thyromegaly, or carotid bruits. Lungs diminished at the bases, fair but not robust air movement, less air mov ement at left base Cardiac exam, Rhythm is regular.. No murmurs, rubs or gallops. Abdominal exam reveals normal bowel sounds, soft non tender, no masses Extremities are trace edematous and both pedal pulses are present Neurologic exam is alert and oriented, no focal loss of strength or sensation Skin is without bruises or rashes Psychologically is without concerns for anxiety or depression Results & Data Results & Data ([facility]) Vital Signs (Past 12 Hours) Vital Signs Temp Pulse Resp BP Pulse Ox 02/24/21 15:38 97.7 F 69 20 115/79 95 02/24/21 07:33 97.7 F 61 18 114/79 95 PG Care Time/CCT Total # of Minutes Spent Total Time Spent with Patient: Total time spent is greater than 50% in coordination of care (as documented) at patient's floor/unit and/or counseling patient: Coding Level of Care Code 91611 Subseq Hosp Care Lvl 2 Diagnoses Chronic respiratory failure with hypoxia J96.11 CAP (community acquired pneumonia) J18.9 Hypertension I10 Chronic pain G89.4 Chronic pain type: chronic pain syndrome Anxiety F41.9 Hyperlipidemia E78.5 DVT prophylaxis Z29.9 (1) Chronic pain Chronic pain type: chronic pain syndrome Qualified Code(s): G89.4 - Chronic pain syndrome
[2021-02-24] MEDS: MIRTAZAPINE TAB 15 MG TAB PO SCH (21:07)
[2021-02-24] MEDS: ENOXAPARIN INJ 40 MG/0.4 ML SYR SQ SCH (21:07)
[2021-02-24] MEDS: ATORVASTATIN 10 MG TAB PO SCH (21:11)
[2021-02-24] MEDS: MELATONIN 3 MG TAB PO SCH (21:18)
[2021-02-25] MEDS: oxyCODONE HCL IR 5 MG TAB (IMMEDIATE RELEASE) PO PRN ×6 (03:23→23:52)
[2021-02-25] MEDS: DOXYCYCLINE HYCLATE 100 MG CAP PO SCH (05:40)
[2021-02-25 06:37] LABS: Base Excess ABG 6.2 mEq/L (-9-1.8); HCO3 ABG 32 mmol/L (19-24); Oxygen Saturation ABG 95.3 % (90-95); PCO2 ABG 51 mmHg (35-46); PO2 ABG 74 mmHg (80-95); pH ABG 7.42 (7.35-7.45)
[2021-02-25 06:56] LABS: Allen Test Pos (Pos)
[2021-02-25] MEDS: DOCUSATE SODIUM 100 MG CAP PO SCH ×2 (07:33→21:01)
[2021-02-25] MEDS: ACETAMINOPHEN 500 MG TAB PO SCH ×3 (07:33→23:52)
[2021-02-25] MEDS: THIAMINE HCL 100 MG TAB PO SCH (07:33)
[2021-02-25] MEDS: GABAPENTIN 300 MG CAP PO SCH ×3 (07:33→20:58)
[2021-02-25] MEDS: NYSTATIN SUSP 500,000 U/5 ML UDC PO SCH ×3 (07:33→21:00)
[2021-02-25] MEDS: UMECLIDINIUM/VILANTEROL 62.5/25MCG 7 PUFFS/INHALER INH SCH (07:34)
[2021-02-25] MEDS: LIDOCAINE 5% 1 PATCH TD SCH (07:34)
[2021-02-25] MEDS: FAMOTIDINE 20 MG TAB PO SCH (07:35)
[2021-02-25] MEDS: PROPRANOLOL HCL 10 MG TAB PO SCH ×2 (07:35→20:59)
[2021-02-25] MEDS: predniSONE 20 MG TAB PO SCH (07:35)
[2021-02-25] MEDS: CELECOXIB 100 MG CAP PO SCH (07:35)
[2021-02-25] MEDS: CALCIUM 600MG + VIT D 400 IU TAB PO SCH ×2 (07:35→20:57)
[2021-02-25] MEDS: busPIRone 5 MG TAB PO SCH ×2 (07:36→21:22)
[2021-02-25] MEDS: FLUTICASONE PROPIONATE NA SPR 16 GM BTL SCH ×2 (07:44→21:00)
--- NOTE | 2021-02-25 08:53 | Pulmonology Progress Note ---
Date of Service February 25, 2021 Assessment & Plan (1) Chronic respiratory failure with hypoxia: (2) COPD (chronic obstructive pulmonary disease): (3) Elevated hemidiaphragm: Plan: CT chest 02/15/2021 personally reviewed: Minimal mosaicism appreciated. Elevated left hemidiaphragm Left lower lobe dependent atelectasis, seems to be worse compared to CAT scan done 02/2020 No mediastinal lymphadenopathy Cardiomegaly --Acute on chronic hypoxic respiratory failure Multifactorial Patient does have significant elevation of the left hemidiaphragm He also has atelectasis of the left lower lobe I personally do not see any clear infiltrate. It seems to be worsening of the atelectasis COVID-19 PCR negative Procalcitonin negative We will do supplementation to keep oxygen saturation between 90-92% --Chronic elevation of the left hemidiaphragm I think patient will likely benefit from diaphragmatic plication surgery It should be considered Incentive spirometry will be beneficial --COPD [id number] smoking history Quit at the age of 39 PFTs as an outpatient Start the patient on Anoro to be used on a daily basis --History of COVID-19 pneumonia June-July 2020 Did not need any treatment Plan: Patient did not try the BiPAP overnight as he thought that this was for sleep apnea. I explained to him this is not for sleep apnea but he is hypercapnia and he is going to try it later tonight. Patient is still hypercapnic today ABG showing 7.42/51/74 on 2 L. I do think patient will benefit from noninvasive ventilation. He is from a [place]. I would recommend him to be sent on BiPAP 10/6 nightly and when he is napping. Discharge the patient on Anoro on a daily basis. Outpatient pulmonary follow-up No further recommendations from pulmonary perspective. Please call directly with questions. Please note the above document was generated using voice recognition software. It may contain grammatical, syntax or spelling errors.Any formal questions or concerns about the content, text or information contained within the body of this dictation should be directly addressed to the provider for clarification. Admission and Anticipated Discharge Date Admission Date: February 18, 2021 Subjective Patient seen and examined at bedside. No acute distress, no adverse events overnight. Patient states he is feeling better. He was again lying in the left decubitus position. His shortness of breath is improved. He has been using incentive spirometry as well as flutter valve. He was asking regarding the surgery for plication. I did explain to him that a CT surgeon has to see him and then he will decide whether he will be a good candidate for it or not. I did get him a BiPAP to be used nightly but he thought it was for sleep apnea and he did not use it. He said he is good to use it tonight. No chest pain, good appetite. No headache, no nausea, no vomiting Review of Systems Review of Systems: All systems reviewed & are unremarkable except as noted in Subjective Physical Exam Physical Exam: Constitutional: No acute distress HEENT: EOMI, PERRLA, hoarseness of voice, posterior cervical hump Respiratory system: Decreased air entry bilaterally, more decreased on the left side, no wheeze, rhonchi, no crackles CVS: S1-S2 positive, no murmurs or gallops Abdomen: Soft, nontender, nondistended, positive bowel sounds x4 Extremities: +2 pulses bilaterally radialis/ dorsalis pedis, no cyanosis, no edema Neuro: Awake alert oriented x3 Psych: Normal mood and affect G/U: No Harris Skin: no rashes, warm and dry Lymphatic: no cervical or axillary lymphadenopathy Results & Data Results & Data ([facility]) Vital Signs (Past 12 Hours) Vital Signs Temp Pulse Resp BP Pulse Ox 02/25/21 07:52 36.7 C 71 18 125/79 95 02/24/21 23:23 36.4 C L 75 18 113/78 94 02/22/21 08:34 02/22/21 08:34 PG Care Time/CCT Total # of Minutes Spent Total Time Spent with Patient: Total time spent is greater than 50% in coordination of care (as documented) at patient's floor/unit and/or counseling patient: Coding Level of Care Code 16067 Subseq Hosp Care Lvl 2 Diagnoses Chronic respiratory failure with hypoxia J96.11 COPD (chronic obstructive pulmonary disease) J44.9 Elevated hemidiaphragm J98.6
[2021-02-25] MEDS: POLYETHYLENE (MIRALAX) 17 GM PACK PO SCH (10:03)
[2021-02-25] MEDS: LORazepam 0.5 MG TAB PO PRN (11:47)
--- NOTE | 2021-02-25 17:51 | Hospitalist Progress Note ---
Date of Service February 25, 2021 Assessment & Plan (1) Chronic respiratory failure with hypoxia: Plan: now acute on chronic, exact cause is not clear, could be his pneumonia worsening underlying copd, could be that the large hiatal hernia is not limiting his vital capacity or even cardiogenic as he has a long alcohol history ehco is normal, did get better with lasix pulmonary eval reduced steroids recommended trilogy at home and added umeclidinium/vilanterol will follow up as outpt consider CT surgery to eval for hiatal hernia repair (2) CAP (community acquired pneumonia): Plan: CTA chest on 02/18 showed "progressive consolidation within the left lung base most pronounced within the left lower lobe." He does report similar symptoms 2-3 years ago when he had a prior episode of pneumonia. (Looks like in 02/2019 in prior notes.) - Ordered blood cultures, MRSA swab, Legionella urine, procalcitonin not elevated - ceftriaxone and doxycycline we will de-escalate to just doxycycline given former smoker will recommend follow up imaging (3) Hypertension: Plan: BP was 115/75 in the ED. - Continue home propranolol (4) Chronic pain: Plan: Hx of alcohol abuse and chronic opioid use. PDMP shows stable, chronic prescriptions from his PCP. - Continue home oxycodone - Continue home acetaminophen, celecoxib, & gabapentin - Hold home etodolac (repeat NSAID) - Continue GI ppx with famotidine - no signs of active withdrawal at this time (5) Anxiety: Plan: As with opioids, chronic use of benzos. - Continue home mirtazapine - Continue home lorazepam PRN (6) Hyperlipidemia: Plan: - Continue statin (7) DVT prophylaxis: Plan: SCDs - Low DVT risk per admission calculator Plan: anticipate return to [facility] thursday Admission and Anticipated Discharge Date Admission Date: February 18, 2021 Results & Data Results & Data ([facility]) Vital Signs (Past 12 Hours) Vital Signs Temp Pulse Resp BP Pulse Ox 02/25/21 07:52 36.7 C 71 18 125/79 95 PG Care Time/CCT Total # of Minutes Spent Total Time Spent with Patient: Total time spent is greater than 50% in coordination of care (as documented) at patient's floor/unit and/or counseling patient: Coding Diagnoses Chronic respiratory failure with hypoxia J96.11 CAP (community acquired pneumonia) J18.9 Hypertension I10 Chronic pain G89.4 Chronic pain type: chronic pain syndrome Anxiety F41.9 Hyperlipidemia E78.5 DVT prophylaxis Z29.9 (1) Chronic pain Chronic pain type: chronic pain syndrome Qualified Code(s): G89.4 - Chronic pain syndrome
[2021-02-25] MEDS: MIRTAZAPINE TAB 15 MG TAB PO SCH (20:57)
[2021-02-25] MEDS: ENOXAPARIN INJ 40 MG/0.4 ML SYR SQ SCH (20:57)
[2021-02-25] MEDS: ATORVASTATIN 10 MG TAB PO SCH (20:57)
[2021-02-25] MEDS: MELATONIN 3 MG TAB PO SCH (21:22)
[2021-02-26] MEDS: oxyCODONE HCL IR 5 MG TAB (IMMEDIATE RELEASE) PO PRN ×3 (04:36→13:09)
[2021-02-26] MEDS: LORazepam 0.5 MG TAB PO PRN ×2 (06:50→15:19)
[2021-02-26] MEDS: busPIRone 5 MG TAB PO SCH (08:54)
[2021-02-26] MEDS: PROPRANOLOL HCL 10 MG TAB PO SCH (08:54)
[2021-02-26] MEDS: CALCIUM 600MG + VIT D 400 IU TAB PO SCH (08:54)
[2021-02-26] MEDS: GABAPENTIN 300 MG CAP PO SCH ×2 (08:54→13:09)
[2021-02-26] MEDS: DOCUSATE SODIUM 100 MG CAP PO SCH (08:54)
[2021-02-26] MEDS: ACETAMINOPHEN 500 MG TAB PO SCH ×2 (08:54→15:19)
[2021-02-26] MEDS: POLYETHYLENE (MIRALAX) 17 GM PACK PO SCH (08:54)
[2021-02-26] MEDS: LIDOCAINE 5% 1 PATCH TD SCH (08:54)
[2021-02-26] MEDS: FAMOTIDINE 20 MG TAB PO SCH (08:54)
[2021-02-26] MEDS: NYSTATIN SUSP 500,000 U/5 ML UDC PO SCH ×2 (08:54→13:09)
[2021-02-26] MEDS: CELECOXIB 100 MG CAP PO SCH (08:54)
[2021-02-26] MEDS: predniSONE 20 MG TAB PO SCH (08:54)
[2021-02-26] MEDS: THIAMINE HCL 100 MG TAB PO SCH (08:55)
[2021-02-26] MEDS: FLUTICASONE PROPIONATE NA SPR 16 GM BTL SCH (08:55)
[2021-02-26] MEDS: UMECLIDINIUM/VILANTEROL 62.5/25MCG 7 PUFFS/INHALER INH SCH (08:55)
--- NOTE | 2021-02-26 14:12 | Discharge Summary ---
Date of Service February 26, 2021 Admission HPI Per Admitting Provider 65yo M w/ hx of chronic pain and undifferentiated respiratory issues who presents with worsening shortness of breath and dyspnea on exertion. Reports that he has had increased trouble breathing for at least months, se emingly stemming from his Covid infection in July 2020. He is a fairly poor historian and cannot give details, but does note that approx. 3 weeks ago, he started to have sinus congestion and ear pressure that reduced his hearing. He was given ear drops which he reports did not improve his hearing at all. Approximately 1 week ago, he also had increased nasal congestion, sore throat, and productive cough which he reports has improved. However, in the last week to few days, he reports increased shortness of breath and MIRELES which is so bad that he cannot even lie down or bend over before getting winded. He feels he cannot complete his ADLs at this time. He denies f/c/ns. Denies lightheadedness, dizziness, n/v, weight loss, or other concerning ROS. Principal Diagnosis Community acquired pneumonia Atelectasis (lung compression) from elevated left diaphragm Acute on chronic respiratory failure with hypoxia (low oxygen) and hypercapnia (high carbon dioxide) levels Discharge Data Allergies Allergy/AdvReac Type Severity Reaction Status Date / Time erythromycin base Allergy Intermediate Rash, Verified 02/18/21 14:21 throat swelling, difficulty breathing Consultations 02/18/21 16:22 ED Decision to Admit Stat 02/21/21 15:24 Consult Pulmonology Routine Ordered Studies 02/18/21 12:47 CT angio chest PE protocol Stat Hospital Course (1) Chronic respiratory failure with hypoxia: now acute on chronic, exact cause is not clear, could be his pneumonia worsening underlying copd, could be that the large hiatal hernia is not limiting his vital capacity or even cardiogenic as he has a long alcohol history ehco is normal, did get better with lasix pulmonary eval reduced steroids recommended trilogy at home and added umeclidinium/vilanterol will follow up as outpt consider CT surgery to eval for hiatal hernia repair (2) CAP (community acquired pneumonia): CTA chest on 02/18 showed "progressive consolidation within the left lung base most pronounced within the left lower lobe." He does report similar symptoms 2-3 years ago when he had a prior episode of pneumonia. (Looks like in 02/2019 in prior notes.) - Ordered blood cultures, MRSA swab, Legionella urine, procalcitonin not elevated - ceftriaxone and doxycycline we will de-escalate to just doxycycline given former smoker will recommend follow up imaging (3) Hypertension: BP was 115/75 in the ED. - Continue home propranolol (4) Chronic pain: Hx of alcohol abuse and chronic opioid use. PDMP shows stable, chronic prescriptions from his PCP. - Continue home oxycodone - Continue home acetaminophen, celecoxib, & gabapentin - Hold home etodolac (repeat NSAID) - Continue GI ppx with famotidine - no signs of active withdrawal at this time (5) Anxiety: As with opioids, chronic use of benzos. - Continue home mirtazapine - Continue home lorazepam PRN (6) Hyperlipidemia: - Continue statin (7) DVT prophylaxis: SCDs - Low DVT risk per admission calculator anticipate return to [facility] thursday Discharge Plan Discharge Items Patient Disposition: Personal Fpc Reason For Visit: CAP Discharge Diagnosis: Community acquired pneumonia Atelectasis (lung compression) from elevated left diaphragm Acute on chronic respiratory failure with hypoxia (low oxygen) and hypercapnia (high carbon dioxide) levels Activity: Resume your previous activity Non-emergency contact: Primary Care Provider and Nurse Informatics Educator Call non-emergency contact if: you have any medication questions and your symptoms worsen Follow-up/Referrals: Pete Sun MD [Physician] - (Follow up 1-2 weeks hoarseness of voice) Varun Bowen MD [Physician] - (1-2 weeks after discharge) Mckenna Dick [Primary Care Provider] - Diet: Regular Addtl Attending Provider Instructions: You were admitted to [facility] from February 18 - 2020 due to shortness of breath. You were diagnosed with community acquired pneumonia treated with antibiotics as an inpatient. No further antibiotics required on discharge. Suspect residual shortness of breath due to atelectasis (lung compression) due to elevated left hemidiaphragm and we have faxed a follow up appointment with thoracic surgery regarding this. Regarding your voice hoarseness please follow up with ENT (Dr Sun) as an outpatient. Due to emphysema seen on CT you were started on Anoro Ellipta. Please follow up with pulmonology for continued management of this. Pending Studies at Discharge: No Stand-Alone Forms: My [employer], Smoking Cessation Skilled Items Patient informed of condition?: Yes DNR: No Discharge Level of Care: Other Communicable Disease: No Discharge Prognosis: Stable Lines: None Urinary Catheter: No Medications and DC Order Prescriptions: New buspirone 5 mg Tablet 5 mg PO BID Qty: 60 RF: 0 ipratropium-albuterol 0.5 mg-3 mg(2.5 mg base)/3 mL Solution For Nebulization 3 ml NEB Q4R PRN (Reason: shortness of breath or wheezing) Qty: 180 RF: 0 cetirizine 10 mg Tablet 10 mg PO DAILY PRN (Reason: allergy symptoms) Qty: 10 RF: 0 atorvastatin 10 mg Tablet 10 mg PO QPM Qty: 30 RF: 0 melatonin 3 mg Tablet 3 mg PO HS Qty: 30 RF: 0 acetaminophen [Tylenol Extra Strength] 500 mg Tablet 1,000 mg PO TID Qty: 180 RF: 0 famotidine 20 mg Tablet 20 mg PO DAILY Qty: 30 RF: 0 lorazepam 0.5 mg Tablet 0.5 mg PO BID PRN (Reason: anxiety) Qty: 14 RF: 0 gabapentin 300 mg Capsule 300 mg PO TID Qty: 90 RF: 0 celecoxib [Celebrex] 100 mg Capsule 100 mg PO DAILY Qty: 30 RF: 0 ondansetron 4 mg Tablet,Disintegrating 4 mg PO Q4H PRN (Reason: nausea and vomiting) Qty: 10 RF: 0 fluticasone propionate 50 mcg/actuation Carmine,Suspension 1 spray NA BID PRN (Reason: Nasal congestion) Qty: 16 RF: 0 Caltrate 600-D Plus Minerals 600 mg calcium- 800 unit-50 mg Tablet 1 tab PO BID Qty: 60 RF: 0 Anoro Ellipta 62.5-25 mcg/actuation Blister With Device 1 inh inhalation DAILY Qty: 60 RF: 0 prednisone 10 mg tablet 10 mg PO DAILY 3 Days Qty: 3 RF: 0 bisacodyl 10 mg suppository 10 mg OR DAILY PRN (Reason: constipation) Qty: 12 RF: 0 docusate sodium 100 mg Capsule 100 mg PO BID Qty: 60 RF: 0 Senna Plus 8.6-50 mg capsule 1 tab-cap PO HS Qty: 30 RF: 0 thiamine HCl (vitamin B1) [Vitamin B-1] 100 mg Tablet 100 mg PO QAM Qty: 30 RF: 0 oxycodone 10 mg tablet 10 mg PO Q4H PRN (Reason: pain) Qty: 35 RF: 0 mirtazapine 30 mg tablet 30 mg PO HS Qty: 30 RF: 0 Continued artificial tears(hypromellose) 0.3 % drops 2 drp ophthalmic (eye) TID PRN (Reason: dry eyes) Qty: 15 RF: 2 triamcinolone acetonide 0.1 % cream 1 applic topical BID PRN (Reason: rash) Qty: 15 RF: 0 sodium chloride [Saline Nasal] 0.65 % aerosol,spray 1 spray intranasal QID PRN (Reason: dry nasal passages) Qty: 30 RF: 5 Discontinued docusate sodium [Colace] 100 mg capsule 100 mg PO BID RF: 0 acetaminophen 500 mg tablet 1,000 mg PO TID Qty: 180 RF: 11 cetirizine [Zyrtec] 10 mg tablet 10 mg PO DAILY PRN (Reason: allergy symptoms) Qty: 30 RF: 1 bisacodyl [Dulcolax (bisacodyl)] 10 mg suppository 10 mg OR DAILY PRN (Reason: constipation) Qty: 12 RF: 0 famotidine 20 mg tablet 20 mg PO DAILY Qty: 30 RF: 5 lorazepam 0.5 mg tablet 0.5 mg PO BID PRN (Reason: anxiety) Qty: 60 RF: 0 oxycodone 10 mg tablet 10 mg PO Q4H PRN (Reason: pain) Qty: 90 RF: 0 albuterol sulfate 90 mcg/actuation HFA aerosol inhaler 2 puff inhalation Q6H PRN (Reason: shortness of breath or wheezing) Qty: 8.5 RF: 5 mirtazapine 30 mg tablet 30 mg PO HS RF: 0 calcium carbonate-vitamin D3 [Oyster Shell Calcium-Vit D3] 250-125 mg-unit tablet 1 tab PO BID RF: 0 propranolol 10 mg tablet 5 mg PO BID RF: 0 thiamine HCl (vitamin B1) 100 mg tablet 100 mg PO QAM RF: 0 ondansetron HCl 4 mg tablet 4 mg PO Q4H PRN (Reason: Nausea) RF: 0 gabapentin 300 mg capsule 300 mg PO TID Qty: 90 RF: 2 atorvastatin 10 mg tablet 10 mg PO QPM RF: 0 Senna Plus 8.6-50 mg capsule 1 tab-cap PO QDL RF: 0 etodolac 200 mg capsule 200 mg PO BID PRN (Reason: Pain) RF: 0 melatonin 3 mg Tablet 3 mg PO HS RF: 0 celecoxib 100 mg capsule 100 mg PO DAILY RF: 0 Discharge Orders: Discharge Order (Routine); Ordered 02/26/21 Ordered By: David Dnoovan Admission Data Admit Date/Time: 02/18/21 17:29 Attending Provider: David Donovan Admit Provider: Yann Romero Primary Care Provider: Mckenna Dick Other Providers: Yann Romero ; Varun Bowen Coding Diagnoses Chronic respiratory failure with hypoxia J96.11 CAP (community acquired pneumonia) J18.9 Hypertension I10 Chronic pain G89.4 Chronic pain type: chronic pain syndrome Anxiety F41.9 Hyperlipidemia E78.5 DVT prophylaxis Z29.9
== END 2021-02-26 17:32 | disposition home or self-care (01) | DRG 193 ==
LOC: ED 11:42 → 2W 17:29 → SUATTDRO 17:29 → 2W 18:16

== ENCOUNTER 2023-06-29 18:05 | Inpatient (IN) ==
[2023-06-29] MEDS ORDERED: cefTRIAXone SODIUM 2,000 MG/50 ML BAG IV STA (18:18)
--- NOTE | 2023-06-29 18:23 | Emergency Department Note ---
Impression & Plan Acute hypoxic respiratory failure, Sepsis, Pneumonia ED Provider Note NAME: RK HUNT II AGE: 67 SEX: M : 1955 ARRIVES VIA: Ambulance INFORMANT: EMS, Patient ED PROVIDER(S): Jesus Stone DO CHIEF COMPLAINT: AMS and hypoxic HPI: Patient is a 67-year-old male with past medical history myelopathy, respiratory failure on 2 L NC, and COPD who presents to the ER for altered mental status, shortness of breath and left-sided weakness. Per EMS Mel malone is unclear/uncertain when the left-sided weakness started. Patient notes started a week ago with any changes story to that it changed several days ago. Per EMS they thought it started yesterday. Patient denies any headache or change in vision. No chest pain or shortness of breath. Denies any belly pain, nausea, vomiting, or diarrhea. Per EMS they note he has been coughing up green productive sputum for several days. He was hypoxic and his oxygen was increased from 2 L to 4 L. ADDITIONAL HISTORY OBTAINED: Per HPI Chronic Medical/Social Conditions Affecting Care: Per HPI PAST MEDICAL HISTORY:See Below PAST SURGICAL HISTORY:See Below FAMILY HISTORY:See Below SOCIAL HISTORY:See Below HOME MEDICATIONS:See Below ALLERGIES:See Below VITALS:See Below PHYSICAL EXAMINATION: GENERAL: Sitting up in bed, alert, ill-appearing, disheveled, persistent coughing EYE EXAM: normal conjunctiva. PERRL and EOM's grossly intact. OROPHARYNX: no exudate, no erythema, lips, buccal mucosa, and tongue normal and mucous membranes are moist NECK: supple, no nuchal rigidity, no adenopathy, non-tender LUNGS: Wheezing bilaterally. Normal chest wall mechanics HEART: no murmurs, S1 normal and S2 normal ABDOMEN: abdomen soft, non-tender, normo-active bowel sounds, no masses, no rebound or guarding. UPPER EXTREMITIES: upper extremities are grossly normal. LOWER EXTREMITIES: No pitting edema. Calves are equal bilateral NEURO EXAM: Oriented to person, place but not year, cranial nerves II-XII grossly intact, normal speech, left lower extremity was slightly weaker than the right and left upper extremity was mildly weaker than the right MEDICAL DECISION MAKING: Patient is a 67-year-old male who presents ER for left-sided weakness and combination with altered mental status found to be hypoxic at 84% on 2 L and was titrated up to 7 L OxyMask. Unclear of when his last known well and consequently he was not a stroke alert. He did have subtle weakness on the left side. Labs show mild leukopenia 4000. No significant anemia. He was tachycardic in the 120s. ABG with a pH 7.33 and a CO2 of 61. BMP with slightly elevated CO2. Lactate was elevated at 3.3 and trended down to 1.1 following IV fluids. Bilirubin LFTs was unremarkable. Troponin was negative. He was influenza A positive. Viral panel was otherwise negative. Chest x-ray shows left-sided infiltrates. CTA of the head and neck was negative. He was given IV vancomycin as well as Rocephin and updated bedside discussed with Dr. Maico Steel for further evaluation management and treatment and admission. Consults/Care Managements Discussions: Per [facility] Triage Nursing notes reviewed. Limited review of prior medical records performed Vital Signs: reviewed and remarkable for tachycardic, tachypneic and hypoxic Differential diagnosis: Differential diagnoses includes but is not limited to pneumonia, bronchitis, COPD/Asthma exacerbation, pneumothorax, pulmonary embolism, congestive heart failure, acute coronary syndrome ER treatment provided: See below Diagnostics interpreted by me include EKG and cardiac monitoring as listed below: -Cardiac Monitoring: An order was placed for continuous cardiac monitoring. The monitor shows a rate of 122 with sinus rhythm. -ECG: Sinus rhythm rate of 127 Normal axis No PVCs QTc 392 -Laboratory studies:Interpreted by me as stated above in MDM and shown below. Imaging studies: Xrays: As interpreted by me: Portable AP upright 1 view of the chest shows left- sided infiltrate CTs show: CT angios of the head and neck were negative Procedures:none Critical Care: I have personally spent 35 minutes of critical care time in the direct management of this patient. This includes bedside care, interpretation of diagnostic studies, and testing, discussion with consultants, patient, and family members, and other required patient management activities. This 35 minutes is in excess of all separately billable procedures. Past Med/Surg History Medical History History of recent fall Osteoarthritis Degenerative disc disease Chronic back pain Hypertension Diverticular disease Venous reflux Stenosis of cervical spine with myelopathy Alcohol withdrawal Suicidal ideation Chronic, continuous use of opioids Spinal stenosis of lumbar region Hypoxia Pneumonia Anxiety Arthritis Hearing difficulty Hyperlipidemia Stomach ulcer Neuropathy Surgical History Hx of umbilical hernia repair History of right inguinal hernia repair History of left inguinal hernia repair Foreign body of right eye History of tonsillectomy History of bowel resection History of colonoscopy History of appendectomy History of esophagogastroduodenoscopy (EGD) History of oral surgery Family History Mother Anxiety Depression Cardiac disorder Hypertension Diabetes Mesothelioma Father Mesothelioma Diabetes Brother Diabetes Other No significant family history Social History (Updated 06/10/23 @ 12:57 by Francisca Ruano LPN) Smoking Status: Unknown if ever smoked Tobacco Type: Cigarettes Second Hand Exposure: Yes; Do You Dip or Chew Tobacco: No; Hx Alcohol Use: No Hx Substance Use: No Preferred Language: Bruneian Communication Ability: Effective Visual Impairment: Limited Hearing Ability: Hard of Hearing Carrier Loader Required: No Beliefs That Will Affect Care: Islam Islam Beliefs: Cheondoism marital status: / Current Living Situation: Skilled Nursing Current Living Situation Comment: [facility] current occupational status: retired How many Children do You have: 1 Feels Safe at Home: Yes Childhood Exposure to Second-Hand Smoke: Yes Diet: Soft and regular caffeine: Yes during the past year weight has: remained stable Dental Care, Regularly: No Physical Activity Frequency: Does not Exercise Seatbelt Use: always Sunscreen Use: No Assistive Devices: Glasses, Oxygen - Continuous and Wheelchair Allergies Allergies Allergy/AdvReac Type Severity Reaction Status Date / Time erythromycin base Allergy Severe DIFFICULTY Verified 06/29/23 18:21 BREATHING, THROAT SWELLS, RASH Home Meds Home Medications Medication Instructions Recorded Confirmed polyethylene glycol 3350 17 17 g PO DAILY PRN Constipation 06/10/23 06/29/23 gram/dose oral powder (Miralax) pramoxine 1 % topical cream 1 applic topical DAILY PRN Skin 06/10/23 06/29/23 (CeraVe Itch Relief) Irritation atorvastatin 10 mg tablet 10 mg PO HS 06/29/23 06/29/23 Previous Rx's Medication Instructions Recorded acetaminophen 500 mg tablet 1,000 mg (2 x 500 mg) PO TID #180 02/26/21 (Tylenol Extra Strength) tabs bisacodyl 10 mg rectal suppository 10 mg MD DAILY PRN constipation 02/26/21 #12 ea calcium 600 mg-D3 800 unit-mag11 1 tab PO BID #60 tabs 02/26/21 50 nw-ayri-qihnyl-nati-s.borat tablet (Caltrate 600-D Plus Minerals) cetirizine 10 mg tablet 10 mg PO DAILY PRN allergy 02/26/21 symptoms #10 tabs melatonin 3 mg tablet 3 mg PO HS #30 tabs 02/26/21 thiamine HCl (vitamin B1) 100 mg 100 mg PO QAM #30 tabs 02/26/21 tablet (Vitamin B-1) docusate sodium 100 mg capsule 100 mg PO BID #60 caps 07/28/22 sennosides 8.6 mg-docusate sodium 2 tab-cap (2 x 8.6-50 mg) PO BID 07/28/22 50 mg capsule (Senna Plus) #120 caps celecoxib 100 mg capsule (Celebrex) 100 mg PO DAILY #30 caps 01/23/23 famotidine 20 mg tablet 20 mg PO DAILY #30 tabs 01/23/23 prednisone 5 mg tablet 5 mg PO Q OTHER DAY #15 tabs 02/09/23 buspirone 15 mg tablet 15 mg PO BID #60 tabs 03/23/23 ondansetron 4 mg disintegrating 4 mg PO Q4H PRN nausea and 03/24/23 tablet vomiting #10 tabs bupropion HCl 150 mg 24 hr tablet, 150 mg PO QAM #30 tabs 05/04/23 extended release (Wellbutrin XL) lorazepam 0.5 mg tablet (Ativan) 0.5 mg PO Q6H anxiety #120 tabs 05/08/23 gabapentin 100 mg capsule 100 mg PO TID #90 caps 06/10/23 oxycodone 15 mg tablet 15 mg PO Q4H PRN pain #120 tabs 06/10/23 gabapentin 800 mg tablet 800 mg PO TID #90 tabs 06/15/23 mirtazapine 30 mg tablet 30 mg PO HS #30 tabs 06/15/23 Results & Data (ED) Vital Signs Vital Signs - 24 hr 06/29/23 18:11 06/29/23 18:13 06/29/23 19:00 Temperature 36.6 C Temperature Source Oral Pulse Rate 125 H 128 H 112 H Pulse Rate from SpO2 Sensor 112 H Respiratory Rate 28 H 29 H Respiratory Effort / Characteristics Spontaneous Respiratory Pattern Regular Blood Pressure 124/92 118/87 Blood Pressure Mean 102 102 Pulse Oximetry 89 L 94 Oxygen Delivery Method Room Air Oxymask Oxygen Flow Rate 7 Sepsis Recent Fever Within 48 Hours No Sepsis New/Unexplained Change in Mental Status Yes Sepsis Action Taken by Nursing Previously Notified 06/29/23 19:15 06/29/23 19:45 06/29/23 20:00 Temperature Temperature Source Pulse Rate 121 H 117 H 115 H Pulse Rate from SpO2 Sensor 107 H 121 H 114 H Respiratory Rate 23 37 H 30 H Respiratory Effort / Characteristics Respiratory Pattern Blood Pressure 126/101 H 129/90 125/96 Blood Pressure Mean 114 101 107 Pulse Oximetry 93 94 97 Oxygen Delivery Method Oxymask Oxymask Oxymask Oxygen Flow Rate 7 7 7 Sepsis Recent Fever Within 48 Hours Sepsis New/Unexplained Change in Mental Status Sepsis Action Taken by Nursing 06/29/23 20:15 06/29/23 20:30 06/29/23 20:45 Temperature Temperature Source Pulse Rate 122 H 110 H 114 H Pulse Rate from SpO2 Sensor 121 H 97 H 113 H Respiratory Rate 26 H 33 H 35 H Respiratory Effort / Characteristics Respiratory Pattern Blood Pressure 117/95 131/90 122/84 Blood Pressure Mean 105 114 97 Pulse Oximetry 95 96 97 Oxygen Delivery Method Oxymask Oxymask Oxymask Oxygen Flow Rate 7 7 7 Sepsis Recent Fever Within 48 Hours Sepsis New/Unexplained Change in Mental Status Sepsis Action Taken by Nursing 06/29/23 21:00 06/29/23 21:15 Temperature Temperature Source Pulse Rate 106 H 107 H Pulse Rate from SpO2 Sensor 107 H 105 H Respiratory Rate 29 H 31 H Respiratory Effort / Characteristics Respiratory Pattern Blood Pressure 115/79 126/98 Blood Pressure Mean 103 109 Pulse Oximetry 97 96 Oxygen Delivery Method Oxymask Oxymask Oxygen Flow Rate 7 Sepsis Recent Fever Within 48 Hours Sepsis New/Unexplained Change in Mental Status Sepsis Action Taken by Nursing Laboratory Data 06/29/23 18:27 06/29/23 18:27 Lab Results 06/29/23 06/29/23 06/29/23 Range/Units 18:26 18:27 20:33 WBC 4.67 L (4.8-10.8) K/ul RBC 4.77 (4.70-6.10) M/uL Hgb 15.0 (14.0-18.0) g/dl Hct 45.3 (42.0-52.0) % MCV 95.0 (80.0-100.0) fL MCH 31.4 (25.0-34.0) pg MCHC 33.1 (32.0-36.0) g/dL RDW Std Deviation 43.4 (36.4-46.3) fL RDW Coeff of Stephen 12.4 (11.5-14.5) % Plt Count 221 (130-400) K/uL MPV 10.4 (9.4-12.4) fL Immature Gran % (Auto) 0.6 % Neut % (Auto) 83.3 % Lymph % (Auto) 10.7 % [place] % (Auto) 5.4 % Eos % (Auto) 0.0 % Baso % (Auto) 0.0 % Neut # (Auto) 3.89 (1.40-6.50) K/uL Lymph # (Auto) 0.50 L (1.20-3.40) K/uL [place] # (Auto) 0.25 (0.11-0.59) K/uL Eos # (Auto) 0.00 (0.00-0.50) K/uL Baso # (Auto) 0.00 (0.00-0.20) K/uL Immature Gran # (Auto) 0.03 (0.01-0.20) K/uL Tear Drop Cells 1+ ABG pH (7.35-7.45) ABG pCO2 (35-46) mmHg ABG pO2 (80-95) mmHg ABG HCO3 (19-24) mmol/L ABG O2 Saturation (90-95) % ABG Base Excess (-9-1.8) mEq/L Hernan Test (Pos) Oxygen Given Sodium 139 (136-145) mmol/L Potassium 4.0 (3.5-5.1) mmol/L Chloride 93 L (98-107) mmol/L Carbon Dioxide 33 H (21-32) mmol/L Anion Gap 13 H (3-11) BUN 25 H (6-23) mg/dl Creatinine 1.03 (0.6-1.4) mg/dl Est Cr Clr Drug Dosing 64.2 ml/min Est GFR ( Amer) 86.1 ml/min Est GFR (Non-Af Amer) 74.3 ml/min BUN/Creatinine Ratio 24.3 H (10-20) Glucose 104 H (70-99(Fasting)) mg/dl Lactate 3.3 H* 1.1 (0.4-2.0) mmol/L Calcium 10.5 H (8.6-10.3) mg/dl Magnesium 2.2 (1.7-2.4) mg/dl Total Bilirubin 0.5 (0.2-1.0) mg/dl Direct Bilirubin 0.2 (0-0.2) mg/dl AST 45 H (13-39) U/L ALT 16 (7-52) U/L Alkaline Phosphatase 43 (34-104) U/L Troponin I High Sens 12.4 (0-20) pg/ml Total Protein 7.8 (6.0-8.3) gm/dl Albumin 4.4 (3.4-5.0) gm/dl Procalcitonin 0.96 H (0-0.5) ng/ml Nasal Influ A H1 2008 PCR DETECTED A* (NotDetected) Adenovirus (PCR) Not Detected (NotDetected) B. pertussis DNA (PCR) Not Detected (NotDetected) B.parapertussis DNA PCR Not Detected (NotDetected) C. pneumoniae DNA (PCR) Not Detected (NotDetected) Coronavirus OC43 (PCR) Not Detected (NotDetected) Coronavirus HKU1 (PCR) Not Detected (NotDetected) Coronavirus 229E (PCR) Not Detected (NotDetected) SARS-CoV-2 (PCR) Not Detected (NotDetected) Coronavirus NL63 (PCR) Not Detected (NotDetected) Human Metapneumovir PCR Not Detected (NotDetected) Influenza Type B (PCR) Not Detected (NotDetected) M. pneumoniae (PCR) Not Detected (NotDetected) Parainfluenza 1 (PCR) Not Detected (NotDetected) Parainfluenza 2 (PCR) Not Detected (NotDetected) Parainfluenza 3 (PCR) Not Detected (NotDetected) Parainfluenza 4 (PCR) Not Detected (NotDetected) RSV (PCR) Not Detected (NotDetected) Entero/Rhino (PCR) Not Detected (NotDetected) 06/29/23 Range/Units 21:09 WBC (4.8-10.8) K/ul RBC (4.70-6.10) M/uL Hgb (14.0-18.0) g/dl Hct (42.0-52.0) % MCV (80.0-100.0) fL MCH (25.0-34.0) pg MCHC (32.0-36.0) g/dL RDW Std Deviation (36.4-46.3) fL RDW Coeff of Stephen (11.5-14.5) % Plt Count (130-400) K/uL MPV (9.4-12.4) fL Immature Gran % (Auto) % Neut % (Auto) % Lymph % (Auto) % [place] % (Auto) % Eos % (Auto) % Baso % (Auto) % Neut # (Auto) (1.40-6.50) K/uL Lymph # (Auto) (1.20-3.40) K/uL [place] # (Auto) (0.11-0.59) K/uL Eos # (Auto) (0.00-0.50) K/uL Baso # (Auto) (0.00-0.20) K/uL Immature Gran # (Auto) (0.01-0.20) K/uL Tear Drop Cells ABG pH 7.33 L (7.35-7.45) ABG pCO2 61 H (35-46) mmHg ABG pO2 87 (80-95) mmHg ABG HCO3 32 H (19-24) mmol/L ABG O2 Saturation 98.0 H (90-95) % ABG Base Excess 4.5 H (-9-1.8) mEq/L Hernan Test Pos (Pos) Oxygen Given 7 L Sodium (136-145) mmol/L Potassium (3.5-5.1) mmol/L Chloride (98-107) mmol/L Carbon Dioxide (21-32) mmol/L Anion Gap (3-11) BUN (6-23) mg/dl Creatinine (0.6-1.4) mg/dl Est Cr Clr Drug Dosing ml/min Est GFR ( Amer) ml/min Est GFR (Non-Af Amer) ml/min BUN/Creatinine Ratio (10-20) Glucose (70-99(Fasting)) mg/dl Lactate (0.4-2.0) mmol/L Calcium (8.6-10.3) mg/dl Magnesium (1.7-2.4) mg/dl Total Bilirubin (0.2-1.0) mg/dl Direct Bilirubin (0-0.2) mg/dl AST (13-39) U/L ALT (7-52) U/L Alkaline Phosphatase (34-104) U/L Troponin I High Sens (0-20) pg/ml Total Protein (6.0-8.3) gm/dl Albumin (3.4-5.0) gm/dl Procalcitonin (0-0.5) ng/ml Nasal Influ A H1 2009 PCR (NotDetected) Adenovirus (PCR) (NotDetected) B. pertussis DNA (PCR) (NotDetected) B.parapertussis DNA PCR (NotDetected) C. pneumoniae DNA (PCR) (NotDetected) Coronavirus OC43 (PCR) (NotDetected) Coronavirus HKU1 (PCR) (NotDetected) Coronavirus 229E (PCR) (NotDetected) SARS-CoV-2 (PCR) (NotDetected) Coronavirus NL63 (PCR) (NotDetected) Human Metapneumovir PCR (NotDetected) Influenza Type B (PCR) (NotDetected) M. pneumoniae (PCR) (NotDetected) Parainfluenza 1 (PCR) (NotDetected) Parainfluenza 2 (PCR) (NotDetected) Parainfluenza 3 (PCR) (NotDetected) Parainfluenza 4 (PCR) (NotDetected) RSV (PCR) (NotDetected) Entero/Rhino (PCR) (NotDetected) Administered Medications Oseltamivir Phosphate (Oseltamivir Phosphate 75 Mg Cap) 75 mg PO BID [facility]; Protocol Stop: 07/04/23 21:29 Last Admin: 06/29/23 21:43 Dose: 75 mg Documented By: DML Discontinued Medications Ceftriaxone Sodium (Rocephin) 2,000 mg in 50 mls @ 100 mls/hr IV NOW STA Stop: 06/29/23 18:47 Last Infusion: 06/29/23 19:46 Dose: Infused Documented By: Admin: 06/29/23 19:16 Dose: 100 mls/hr Documented By: DMJose Sodium Chloride (Nss) 1,000 mls @ 999 mls/hr IV .Q1H1M GREGORY Stop: 06/29/23 20:30 Last Admin: 06/29/23 20:53 Dose: 999 mls/hr Documented By: Infusion: 06/29/23 19:38 Dose: Infused Documented By: Admin: 06/29/23 18:37 Dose: 999 mls/hr Documented By: ML Vancomycin HCl 1,250 mg/ (Sodium Chloride) 525 mls @ 200 mls/hr IV NOW ONE Stop: 06/29/23 21:43 Last Infusion: 06/29/23 23:30 Dose: Infused Documented By: Admin: 06/29/23 20:41 Dose: 200 mls/hr Documented By: LUIS FERNANDO Ioversol (Optiray 320 125ml) 113 ml IV ONCE ONE Stop: 06/29/23 19:26 Last Admin: 06/29/23 19:26 Dose: 113 ml Documented By: AMBER Imaging Data Radiologist's Impression: Chest X-Ray 06/29/23 18:18 XR chest 1V portable CLINICAL HISTORY: Sepsis COMPARISON STUDY: Chest CT February 26, 2021. Chest radiograph January 26, 2022. FINDINGS: Thoracic scoliosis is incidentally noted. There is no pneumothorax. Suspected small left pleural effusion. Elevation of the left hemidiaphragm is again noted. Left lung airspace opacity has increased since prior exam. There is no consolidation within the right lung. No evidence for pulmonary edema. IMPRESSION: 1. Increase in left lung airspace opacity. This favors pneumonia superimposed upon atelectasis. Radiographic follow-up to ensure resolution is recommended. Suspected small left pleural effusion. 2. Persistent elevation of the left hemidiaphragm. ACT 112: Negative or not required by law. Electronically signed by: Mode Real M.D. 06/29/2023 7:00 PM Head CTA 06/29/23 18:18 CT angio head wo/w CLINICAL HISTORY: Altered mental status. Left-sided weakness. COMPARISON STUDY: MRI of the brain May 24, 2019. Head CT January 08, 2022. TECHNIQUE: Unenhanced and arterial phase imaging of the head was performed. Intravenous injection of 113 cc Optiray 320 IV was uneventful. Sagittal and coronal reconstructions were viewed as well as maximal intensity projections on an independent 3-D workstation. Automated exposure control was utilized for the study. A dose lowering technique was utilized adhering to the principles of ALARA. FINDINGS: No acute intracranial hemorrhage, midline shift or mass effect is present. Ventricular system is normal. Basal cisterns are patent. No extraaxial collections are present. There are no findings to suggest acute dural sinus thrombosis or acute territorial infarct. The appearance of the brain is unchanged. This exam is mildly compromised by motion artifact. The postcontrast images are also mildly compromised by ring artifact. The bilateral M1, M2, A1 and A2 segments are patent. No vessel occlusion is identified. There is no intracranial aneurysm. There is persistence of the left posterior cerebral artery. There is mild plaque within the bilateral cavernous carotids without stenosis. IMPRESSION: 1. No acute intracranial findings. 2. CTA mildly compromised by artifact. No central vessel occlusion. No intracranial aneurysm. ACT 112: Negative or not required by law. Electronically signed by: Mode Real M.D. 06/29/2023 7:50 PM Neck CTA 06/29/23 18:18 CT ANGIOGRAPHY OF THE NECK WITH CONTRAST CLINICAL HISTORY: Left-sided weakness. COMPARISON STUDY: CT of the neck April 25, 2021. Technique: CT angiography of the carotid and vertebral arteries was obtained using Optiray and 3D reconstruction on an independent workstation. NASCET criteria was utilized. Automated exposure control was utilized for the study. A dose lowering technique was utilized adhering to the principles of ALARA. CT DOSE: 1175.45 mGy.cm Findings: Incidental note is made of extensive airspace opacities within visualized portions of the left lung. There are secretions within the trachea. Visualized portions of the esophagus are mildly dilated. There is no cervical lymphadenopathy. There are stable postoperative findings within the cervical spine. The bilateral common carotid, cervical internal carotid and vertebral arteries are patent. There is mild plaque within the bilateral carotid bifurcations without stenosis. The vertebral arteries are patent. There is no aneurysm or dissection within the neck. IMPRESSION: 1. No stenosis or dissection within the bilateral common carotid, cervical internal carotid or vertebral arteries. 2. Extensive airspace opacities within visualized portions of the left upper lung. This favors multifocal pneumonia. Aspiration pneumonitis is also within the differential given secretions within the trachea. A chest CT is recommended for further evaluation to exclude the less likely possibility of an underlying pulmonary lesion. ACT 112: Negative or not required by law. Electronically signed by: Mode Real M.D. 06/29/2023 7:56 PM Discharge Plan Visit Data Chief Complaint: Neuro Symptoms/Deficit ED Provider: Jesus Stone Discharge Problem: Acute hypoxic respiratory failure, Sepsis, Pneumonia Patient Disposition: Admitted As Inpatient Discharge Instructions Interventions: ED Discharge Assessment Last Done: 06/29/23 22:00 Discharge Problem: Sepsis Qualifiers: Sepsis type: sepsis due to unspecified organism Sepsis acute organ dysfunction status: unspecified Qualified Code(s): A41.9 - Sepsis, unspecified organism Pneumonia Qualifiers: Pneumonia type: due to unspecified organism Laterality: unspecified laterality Lung location: unspecified part of lung Qualified Code(s): J18.9 - Pneumonia, unspecified organism
[2023-06-29] MEDS: SODIUM CHLORIDE 0.9% 1,000 ML IV SCH ×2 (18:37→20:53)
[2023-06-29 18:48] LABS: Hematocrit (blood only) 45.3 % (42.0-52.0); Mean Corpuscular Hemoglobin 31.4 pg (25.0-34.0); Mean Corpuscular Hgb Conc 33.1 g/dL (32.0-36.0); Mean Platelet Volume 10.4 fL (9.4-12.4); Platelet Count 221 K/uL (130-400); RDW Coefficient of Variation 12.4 % (11.5-14.5); RDW Standard Deviation 43.4 fL (36.4-46.3); Red Blood Count 4.77 M/uL (4.70-6.10); White Blood Count 4.67 K/ul (4.8-10.8)
--- NOTE | 2023-06-29 19:01 | XRay Report ---
XR chest 1V portable CLINICAL HISTORY: Sepsis COMPARISON STUDY: Chest CT February 26, 2021. Chest radiograph January 26, 2022. FINDINGS: Thoracic scoliosis is incidentally noted. There is no pneumothorax. Suspected small left pl eural effusion. Elevation of the left hemidiaphragm is again noted. Left lung airspace opacity has in creased since prior exam. There is no consolidation within the right lung. No evidence for pulmonary edema. IMPRESSION: 1. Increase in left lung airspace opacity. This favors pneumonia superimposed upon atelectasis. Radio graphic follow-up to ensure resolution is recommended. Suspected small left pleural effusion. 2. Persistent elevation of the left hemidiaphragm. ACT 112: Negative or not required by law. Electronically signed by: Mode Real M.D. 06/29/2023 7:00 PM
[2023-06-29 19:02] LABS: Albumin Level 4.4 gm/dl (3.4-5.0); BUN Creatinine Ratio 24.3 (10-20); Bilirubin Direct 0.2 mg/dl (0-0.2); Bilirubin,Total 0.5 mg/dl (0.2-1.0); Calcium 10.5 mg/dl (8.6-10.3); Creatinine Clr Calc Pharmacy 64.2 ml/min; Est GFR (African American) 86.1 ml/min; Est GFR (Non-African American) 74.3 ml/min; Magnesium 2.2 mg/dl (1.7-2.4); Total Protein 7.8 gm/dl (6.0-8.3)
[2023-06-29] MEDS ORDERED: VANCOMYCIN HCL 1,250 MG in SODIUM CHLORIDE 0.9% 500 ML IV ONE (19:06)
[2023-06-29] MEDS ORDERED: VANCOMYCIN CONSULT ACTIVE PRN ×2 (19:06→21:59)
[2023-06-29 19:07] LABS: Immature Granulocytes # (auto) 0.03 K/uL (0.01-0.20); Immature Granulocytes % (auto) 0.6 %; Lymphocytes % (auto) 10.7 %; Monocytes # (auto) 0.25 K/uL (0.11-0.59); Monocytes % (auto) 5.4 %; Neutrophils # (auto) 3.89 K/uL (1.40-6.50); Neutrophils % (auto) 83.3 %; Tear Drop Cells 1+
[2023-06-29 19:08] LABS: Troponin I High Sensitivity 12.4 pg/ml (0-20)
[2023-06-29] MEDS ORDERED: OPTIRAY 320 125ml IV ONE (19:25)
[2023-06-29 19:28] LABS: Adenovirus PCR Not Detected (NotDetected); Bordetella parapertussis PCR Not Detected (NotDetected); Bordetella pertussis PCR Not Detected (NotDetected); Chlamydia pneumoniae PCR Not Detected (NotDetected); Coronavirus 229E PCR Not Detected (NotDetected); Coronavirus CoV-2 (COVID19)PCR Not Detected (NotDetected); Coronavirus HKU1 PCR Not Detected (NotDetected); Coronavirus NL63 PCR Not Detected (NotDetected); Coronavirus OC43PCR Not Detected (NotDetected); Human Metapneumovirus PCR Not Detected (NotDetected); Influenza B PCR Not Detected (NotDetected); Mycoplasma pneumoniae PCR Not Detected (NotDetected); Parainfluenza Virus 1 PCR Not Detected (NotDetected); Parainfluenza Virus 2 PCR Not Detected (NotDetected); Parainfluenza Virus 3 PCR Not Detected (NotDetected); Parainfluenza Virus 4 PCR Not Detected (NotDetected); Respiratory Syncytial VirusPCR Not Detected (NotDetected); Rhinovirus/Enterovirus PCR Not Detected (NotDetected)
[2023-06-29 19:30] LABS: Influenza A (H1 2009) PCR DETECTED (NotDetected)
--- NOTE | 2023-06-29 19:53 | CT Scan Report ---
CT angio head wo/w CLINICAL HISTORY: Altered mental status. Left-sided weakness. COMPARISON STUDY: MRI of the brain May 24, 2019. Head CT January 08, 2022. TECHNIQUE: Unenhanced and arterial phase imaging of the head was performed. Intravenous injection of 113 cc Optiray 320 IV was uneventful. Sagittal and coronal reconstructions were viewed as well as max imal intensity projections on an independent 3-D workstation. Automated exposure control was utilized for the study. A dose lowering technique was utilized adhering to the principles of ALARA. FINDINGS: No acute intracranial hemorrhage, midline shift or mass effect is present. Ventricular syst em is normal. Basal cisterns are patent. No extraaxial collections are present. There are no findings to suggest acute dural sinus thrombosis or acute territorial infarct. The appearance of the brain is unchanged. This exam is mildly compromised by motion artifact. The postcontrast images are also mild ly compromised by ring artifact. The bilateral M1, M2, A1 and A2 segments are patent. No vessel occlu jose d is identified. There is no intracranial aneurysm. There is persistence of the left posteri or cerebral artery. There is mild plaque within the bilateral cavernous carotids without stenosis. IMPRESSION: 1. No acute intracranial findings. 2. CTA mildly compromised by artifact. No central vessel occlusion. No intracranial aneurysm. ACT 112: Negative or not required by law. Electronically signed by: Mode Real M.D. 06/29/2023 7:50 PM
--- NOTE | 2023-06-29 19:59 | CT Scan Report ---
CT ANGIOGRAPHY OF THE NECK WITH CONTRAST CLINICAL HISTORY: Left-sided weakness. COMPARISON STUDY: CT of the neck April 25, 2021. Technique: CT angiography of the carotid and vertebral arteries was obtained using Optiray and 3D rec onstruction on an independent workstation. NASCET criteria was utilized. Automated exposure control was utilized for the study. A dose lowering technique was utilized adhering to the principles of ALA RA. CT DOSE: 1175.45 mGy.cm Findings: Incidental note is made of extensive airspace opacities within visualized portions of the l eft lung. There are secretions within the trachea. Visualized portions of the esophagus are mildly di lated. There is no cervical lymphadenopathy. There are stable postoperative findings within the cervi valerie spine. The bilateral common carotid, cervical internal carotid and vertebral arteries are patent. There is mild plaque within the bilateral carotid bifurcations without stenosis. The vertebral arter ies are patent. There is no aneurysm or dissection within the neck. IMPRESSION: 1. No stenosis or dissection within the bilateral common carotid, cervical internal carotid or verteb ral arteries. 2. Extensive airspace opacities within visualized portions of the left upper lung. This favors multif ocal pneumonia. Aspiration pneumonitis is also within the differential given secretions within the tr achea. A chest CT is recommended for further evaluation to exclude the less likely possibility of an underlying pulmonary lesion. ACT 112: Negative or not required by law. Electronically signed by: Mode Real M.D. 06/29/2023 7:56 PM
[2023-06-29 21:16] LABS: Allen Test Pos (Pos); Base Excess ABG 4.5 mEq/L (-9-1.8); HCO3 ABG 32 mmol/L (19-24); PCO2 ABG 61 mmHg (35-46); PO2 ABG 87 mmHg (80-95); pH ABG 7.33 (7.35-7.45)
--- NOTE | 2023-06-29 21:21 | History & Physical Report ---
Date of Service June 29, 2023 Assessment & Plan (1) Acute respiratory failure with hypoxia and hypercapnia: (2) Influenza due to identified 2009 H1N1 influenza virus with pneumonia: (3) Pneumonia of left upper lobe due to infectious organism: (4) COPD (chronic obstructive pulmonary disease): (5) Chronic respiratory failure with hypoxia: (6) Myelopathy concurrent with and due to spinal stenosis of cervical region: (7) Opioid dependence: Plan Acute on chronic respiratory failure with hypoxia and hypercapnia/left upper lobe pneumonia/1999 9H1N1 influenza virus/COPD exacerbation- Admit to monitored bed Given vancomycin IV and ceftriaxone IV in the ED Vancomycin IV per pharmacokinetic monitoring Cefepime 2 g IV every 12 hours Duonebs every 4 hours while awake and every 2 hours when necessary. Guaifenesin extended release 12 mg p.o. twice daily Tamiflu 75 mg p.o. twice daily Continue oxy mask, presently 5 L, titrate for pulse ox around 92% Chronic pain syndrome/cervical spine stenosis with myelopathy/lumbar spinal stenosis/opioid dependence- Hold oxycodone 15 mg every 4 hours as needed due to sedation and lethargy Depression/neuropathy- Continue bupropion, buspirone, gabapentin and mirtazapine Alcohol abuse history- Continue thiamine History of Present Illness Chief Complaint: The patient is brought to the emergency department by EMS due to shortness of breath and possible left-sided weakness, which began sometime from a several days to a week ago. The patient is not able to contribute significantly to review of systems due to his current mental state, and information is gathered primarily from EMS report to the ED Primary Care Provider: Leslie Camejo MD The patient is a 67-year-old male with a past medical history including vocal cord paralysis/weakness, hypercapnic respiratory failure, COPD, CAP, hypertension, cervical spinal stenosis with myelopathy, chronic pain syndrome, opioid dependence, alcohol abuse, lumbar spine stenosis, hyperlipidemia and neuropathy. The patient is not able to contribute significantly to HPI or review of systems, and somewhat lethargic and difficult to rouse in the ED. Per EMS report, patient has had shortness of breath over the past week, and questionable left-sided weakness, which was not demonstrated on examination today. Patient did have CT head, CTA head and neck which were negative in the ED Significant laboratories: [facility] negative, haemophilus influenza H 06/2008 positive by PCR From the ED the patient received the following: Vancomycin IV, ceftriaxone IV and normal saline 1 L Allergies Allergy/AdvReac Type Severity Reaction Status Date / Time erythromycin base Allergy Severe DIFFICULTY Verified 06/29/23 18:21 BREATHING, THROAT SWELLS, RASH Home Medications Medication Instructions Recorded Confirmed Type acetaminophen 500 mg tablet 1,000 mg (2 x 500 mg) PO TID #180 02/26/21 06/29/23 Rx (Tylenol Extra Strength) tabs bisacodyl 10 mg rectal suppository 10 mg MD DAILY PRN constipation 02/26/21 06/29/23 Rx #12 ea calcium 600 mg-D3 800 unit-mag11 1 tab PO BID #60 tabs 02/26/21 06/29/23 Rx 50 ae-dbkp-lgwdew-nati-s.borat tablet (Caltrate 600-D Plus Minerals) cetirizine 10 mg tablet 10 mg PO DAILY PRN allergy 02/26/21 06/29/23 Rx symptoms #10 tabs melatonin 3 mg tablet 3 mg PO HS #30 tabs 02/26/21 06/29/23 Rx thiamine HCl (vitamin B1) 100 mg 100 mg PO QAM #30 tabs 02/26/21 06/29/23 Rx tablet (Vitamin B-1) docusate sodium 100 mg capsule 100 mg PO BID #60 caps 07/28/22 06/29/23 Rx sennosides 8.6 mg-docusate sodium 2 tab-cap (2 x 8.6-50 mg) PO BID 07/28/22 06/29/23 Rx 50 mg capsule (Senna Plus) #120 caps celecoxib 100 mg capsule (Celebrex) 100 mg PO DAILY #30 caps 01/23/23 06/29/23 Rx famotidine 20 mg tablet 20 mg PO DAILY #30 tabs 01/23/23 06/29/23 Rx prednisone 5 mg tablet 5 mg PO Q OTHER DAY #15 tabs 02/09/23 06/29/23 Rx buspirone 15 mg tablet 15 mg PO BID #60 tabs 03/23/23 06/29/23 Rx ondansetron 4 mg disintegrating 4 mg PO Q4H PRN nausea and 03/24/23 06/29/23 Rx tablet vomiting #10 tabs bupropion HCl 150 mg 24 hr tablet, 150 mg PO QAM #30 tabs 05/04/23 06/29/23 Rx extended release (Wellbutrin XL) lorazepam 0.5 mg tablet (Ativan) 0.5 mg PO Q6H anxiety #120 tabs 05/08/23 06/29/23 Rx gabapentin 100 mg capsule 100 mg PO TID #90 caps 06/10/23 06/29/23 Rx oxycodone 15 mg tablet 15 mg PO Q4H PRN pain #120 tabs 06/10/23 06/29/23 Rx polyethylene glycol 3350 17 17 g PO DAILY PRN Constipation 06/10/23 06/29/23 History gram/dose oral powder (Miralax) pramoxine 1 % topical cream 1 applic topical DAILY PRN Skin 06/10/23 06/29/23 History (CeraVe Itch Relief) Irritation gabapentin 800 mg tablet 800 mg PO TID #90 tabs 06/15/23 06/29/23 Rx mirtazapine 30 mg tablet 30 mg PO HS #30 tabs 06/15/23 06/29/23 Rx atorvastatin 10 mg tablet 10 mg PO HS 06/29/23 06/29/23 History Past Med/Surg History Medical History History of recent fall Osteoarthritis Degenerative disc disease Chronic back pain Hypertension Diverticular disease Venous reflux Stenosis of cervical spine with myelopathy Alcohol withdrawal Suicidal ideation Chronic, continuous use of opioids Spinal stenosis of lumbar region Hypoxia Pneumonia Anxiety Arthritis Hearing difficulty Hyperlipidemia Stomach ulcer Neuropathy Surgical History Hx of umbilical hernia repair History of right inguinal hernia repair History of left inguinal hernia repair Foreign body of right eye History of tonsillectomy History of bowel resection History of colonoscopy History of appendectomy History of esophagogastroduodenoscopy (EGD) History of oral surgery Family History Mother Anxiety Depression Cardiac disorder Hypertension Diabetes Mesothelioma Father Mesothelioma Diabetes Brother Diabetes Other No significant family history Social History (Updated 06/10/23 @ 12:57 by Francisca Ruano LPN) Smoking Status: Unknown if ever smoked Tobacco Type: Cigarettes Second Hand Exposure: Yes; Do You Dip or Chew Tobacco: No; Hx Alcohol Use: No Hx Substance Use: No Preferred Language: Indian Communication Ability: Effective Visual Impairment: Limited Hearing Ability: Hard of Hearing 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 Beliefs That Will Affect Care: Synagogue Synagogue Beliefs: Advent marital status: / Current Living Situation: [facility] Current Living Situation Comment: [facility] [place] current occupational status: retired How many Children do You have: 1 Feels Safe at Home: Yes Childhood Exposure to Second-Hand Smoke: Yes Diet: Soft and regular caffeine: Yes during the past year weight has: remained stable Dental Care, Regularly: No Physical Activity Frequency: Does not Exercise Seatbelt Use: always Sunscreen Use: No Assistive Devices: Glasses, Oxygen - Continuous and Wheelchair Review of Systems Review of Systems: Patient not able to contribute to review of systems due to lethargy Physical Exam Physical Exam: The patient is lethargic, difficult to arouse but does open eyes respond to sternal rub, and reports that he is tired. normocephalic and atraumatic, lying in bed and in no acute distress. HEENT--PERRL, EOMI, mucous membranes and oropharynx dry. Neck--supple. No JVD. No bruits. Thyroid normal, trachea midline, no adenopathy. Heart--normal S1 and S2. No murmurs, rubs or gallops. Lungs--coarse breath sounds bilaterally, relatively decreased sounds on the left. Abdomen--normal bowel sounds and soft. Nontender. Nondistended, no hernias or masses, no organomegaly. Extremities--no cyanosis or clubbing. No edema Dermatologic--normal skin turgor, normal color, no abnormal lymph nodes, no rash. Neurologic--cranial nerves II through XII grossly intact. Rheumatologic--normal range of motion. Psychiatric--lethargic Results & Data Results & Data Vital Signs (Past 12 Hours) Vital Signs Temp Pulse Resp BP Pulse Ox O2 Del Method O2 Flow Rate 06/29/23 20:15 122 H 26 H 117/95 95 Oxymask 7 06/29/23 20:00 115 H 30 H 125/96 97 Oxymask 7 06/29/23 19:45 117 H 37 H 129/90 94 Oxymask 7 06/29/23 19:15 121 H 23 126/101 H 93 Oxymask 7 06/29/23 19:00 112 H 29 H 118/87 94 Oxymask 7 06/29/23 18:13 128 H 06/29/23 18:11 36.6 C 125 H 28 H 124/92 89 L Room Air Laboratory Results Laboratory Results WBC 4.67 K/ul (4.8-10.8) L 06/29/23 18: RBC 4.77 M/uL (4.70-6.10) 06/29/23 18: Hgb 15.0 g/dl (14.0-18.0) 06/29/23 18:27 Hct 45.3 % (42.0-52.0) 06/29/23 18: MCV 95.0 fL (80.0-100.0) 06/29/23 18: MCH 31.4 pg (25.0-34.0) 06/29/23 18: MCHC 33.1 g/dL (32.0-36.0) 06/29/23 18: RDW Std Deviation 43.4 fL (36.4-46.3) 06/29/23 18: RDW Coeff of Stephen 12.4 % (11.5-14.5) 06/29/23 18: Plt Count 221 K/uL (130-400) 06/29/23 18: MPV 10.4 fL (9.4-12.4) 06/29/23 18: Immature Gran % (Auto) 0.6 % 06/29/23 18: Neut % (Auto) 83.3 % 06/29/23 18: Lymph % (Auto) 10.7 % 06/29/23 18: [place] % (Auto) 5.4 % 06/29/23 18:27 Eos % (Auto) 0.0 % 06/29/23 18:27 Baso % (Auto) 0.0 % 06/29/23 18: Neut # (Auto) 3.89 K/uL (1.40-6.50) 06/29/23 18: Lymph # (Auto) 0.50 K/uL (1.20-3.40) L 06/29/23 18: [place] # (Auto) 0.25 K/uL (0.11-0.59) 06/29/23 18: Eos # (Auto) 0.00 K/uL (0.00-0.50) 06/29/23 18:27 Baso # (Auto) 0.00 K/uL (0.00-0.20) 06/29/23 18:27 Immature Gran # (Auto) 0.03 K/uL (0.01-0.20) 06/29/23 18:27 Tear Drop Cells 1+ 06/29/23 18:27 ABG pH 7.33 (7.35-7.45) L 06/29/23 21:09 ABG pCO2 61 mmHg (35-46) H 06/29/23 21:09 ABG pO2 87 mmHg (80-95) 06/29/23 21:09 ABG HCO3 32 mmol/L (19-24) H 06/29/23 21:09 ABG O2 Saturation 98.0 % (90-95) H 06/29/23 21:09 ABG Base Excess 4.5 mEq/L (-9-1.8) H 06/29/23 21:09 Hernan Test Pos (Pos) 06/29/23 21:09 Oxygen Given 7 L 06/29/23 21:09 Sodium 139 mmol/L (136-145) 06/29/23 18:27 Potassium 4.0 mmol/L (3.5-5.1) 06/29/23 18:27 Chloride 93 mmol/L (98-107) L 06/29/23 18:27 Carbon Dioxide 33 mmol/L (21-32) H 06/29/23 18:27 Anion Gap 13 (3-11) H 06/29/23 18:27 BUN 25 mg/dl (6-23) H 06/29/23 18:27 Creatinine 1.03 mg/dl (0.6-1.4) 06/29/23 18:27 Est Cr Clr Drug Dosing 64.2 ml/min 06/29/23 18:27 Est GFR ( Amer) 86.1 ml/min 06/29/23 18:27 Est GFR (Non-Af Amer) 74.3 ml/min 06/29/23 18:27 BUN/Creatinine Ratio 24.3 (10-20) H 06/29/23 18:27 Glucose 104 mg/dl (70-99(Fasting)) H 06/29/23 18:27 Lactate 1.1 mmol/L (0.4-2.0) 06/29/23 20:33 Calcium 10.5 mg/dl (8.6-10.3) H 06/29/23 18:27 Magnesium 2.2 mg/dl (1.7-2.4) 06/29/23 18:27 Total Bilirubin 0.5 mg/dl (0.2-1.0) 06/29/23 18:27 Direct Bilirubin 0.2 mg/dl (0-0.2) 06/29/23 18:27 AST 45 U/L (13-39) H 06/29/23 18:27 ALT 16 U/L (7-52) 06/29/23 18:27 Alkaline Phosphatase 43 U/L (34-104) 06/29/23 18:27 Troponin I High Sens 12.4 pg/ml (0-20) 06/29/23 18:27 Total Protein 7.8 gm/dl (6.0-8.3) 06/29/23 18:27 Albumin 4.4 gm/dl (3.4-5.0) 06/29/23 18:27 Procalcitonin 0.96 ng/ml (0-0.5) H 06/29/23 18:27 Nasal Influ A H1 2008 PCR DETECTED (NotDetected) A* 06/29/23 18:26 Adenovirus (PCR) Not Detected (NotDetected) 06/29/23 18:26 B. pertussis DNA (PCR) Not Detected (NotDetected) 06/29/23 18:26 B.parapertussis DNA PCR Not Detected (NotDetected) 06/29/23 18:26 C. pneumoniae DNA (PCR) Not Detected (NotDetected) 06/29/23 18:26 Coronavirus OC43 (PCR) Not Detected (NotDetected) 06/29/23 18:26 Coronavirus HKU1 (PCR) Not Detected (NotDetected) 06/29/23 18:26 Coronavirus 229E (PCR) Not Detected (NotDetected) 06/29/23 18:26 SARS-CoV-2 (PCR) Not Detected (NotDetected) 06/29/23 18:26 Coronavirus NL63 (PCR) Not Detected (NotDetected) 06/29/23 18:26 Human Metapneumovir PCR Not Detected (NotDetected) 06/29/23 18:26 Influenza Type B (PCR) Not Detected (NotDetected) 06/29/23 18:26 M. pneumoniae (PCR) Not Detected (NotDetected) 06/29/23 18:26 Parainfluenza 1 (PCR) Not Detected (NotDetected) 06/29/23 18:26 Parainfluenza 2 (PCR) Not Detected (NotDetected) 06/29/23 18:26 Parainfluenza 3 (PCR) Not Detected (NotDetected) 06/29/23 18:26 Parainfluenza 4 (PCR) Not Detected (NotDetected) 06/29/23 18:26 RSV (PCR) Not Detected (NotDetected) 06/29/23 18:26 Entero/Rhino (PCR) Not Detected (NotDetected) 06/29/23 18:26 Impressions Chest X-Ray 06/29/23 18:18 XR chest 1V portable CLINICAL HISTORY: Sepsis COMPARISON STUDY: Chest CT February 26, 2021. Chest radiograph January 26, 2022. FINDINGS: Thoracic scoliosis is incidentally noted. There is no pneumothorax. Suspected small left pleural effusion. Elevation of the left hemidiaphragm is again noted. Left lung airspace opacity has increased since prior exam. There is no consolidation within the right lung. No evidence for pulmonary edema. IMPRESSION: 1. Increase in left lung airspace opacity. This favors pneumonia superimposed upon atelectasis. Radiographic follow-up to ensure resolution is recommended. Suspected small left pleural effusion. 2. Persistent elevation of the left hemidiaphragm. ACT 112: Negative or not required by law. Electronically signed by: Mode Real M.D. 06/29/2023 7:00 PM Head CTA 06/29/23 18:18 CT angio head wo/w CLINICAL HISTORY: Altered mental status. Left-sided weakness. COMPARISON STUDY: MRI of the brain May 24, 2019. Head CT January 08, 2022. TECHNIQUE: Unenhanced and arterial phase imaging of the head was performed. Intravenous injection of 113 cc Optiray 320 IV was uneventful. Sagittal and coronal reconstructions were viewed as well as maximal intensity projections on an independent 3-D workstation. Automated exposure control was utilized for the study. A dose lowering technique was utilized adhering to the principles of ALARA. FINDINGS: No acute intracranial hemorrhage, midline shift or mass effect is present. Ventricular system is normal. Basal cisterns are patent. No extraaxial collections are present. There are no findings to suggest acute dural sinus thrombosis or acute territorial infarct. The appearance of the brain is unchanged. This exam is mildly compromised by motion artifact. The postcontrast images are also mildly compromised by ring artifact. The bilateral M1, M2, A1 and A2 segments are patent. No vessel occlusion is identified. There is no intracranial aneurysm. There is persistence of the left posterior cerebral artery. There is mild plaque within the bilateral cavernous carotids without stenosis. IMPRESSION: 1. No acute intracranial findings. 2. CTA mildly compromised by artifact. No central vessel occlusion. No intracranial aneurysm. ACT 112: Negative or not required by law. Electronically signed by: Mode Real M.D. 06/29/2023 7:50 PM Neck CTA 06/29/23 18:18 CT ANGIOGRAPHY OF THE NECK WITH CONTRAST CLINICAL HISTORY: Left-sided weakness. COMPARISON STUDY: CT of the neck April 25, 2021. Technique: CT angiography of the carotid and vertebral arteries was obtained using Optiray and 3D reconstruction on an independent workstation. NASCET criteria was utilized. Automated exposure control was utilized for the study. A dose lowering technique was utilized adhering to the principles of ALARA. CT DOSE: 1175.45 mGy.cm Findings: Incidental note is made of extensive airspace opacities within visualized portions of the left lung. There are secretions within the trachea. Visualized portions of the esophagus are mildly dilated. There is no cervical lymphadenopathy. There are stable postoperative findings within the cervical spine. The bilateral common carotid, cervical internal carotid and vertebral arteries are patent. There is mild plaque within the bilateral carotid bifurcations without stenosis. The vertebral arteries are patent. There is no aneurysm or dissection within the neck. IMPRESSION: 1. No stenosis or dissection within the bilateral common carotid, cervical internal carotid or vertebral arteries. 2. Extensive airspace opacities within visualized portions of the left upper lung. This favors multifocal pneumonia. Aspiration pneumonitis is also within the differential given secretions within the trachea. A chest CT is recommended for further evaluation to exclude the less likely possibility of an underlying pulmonary lesion. ACT 112: Negative or not required by law. Electronically signed by: Mode Real M.D. 06/29/2023 7:56 PM Code Status & VTE Plan Code Status Full code VTE Prophylaxis Plan VTE Prophylaxis will be ordered: Yes PG Care Time/CCT Total # of Minutes Spent Total Time Spent with Patient: Total time spent is greater than 50% in coordination of care (as documented) at patient's floor/unit and/or counseling patient: Coding Level of Care Code 20131 INT INP/OBS CARE 3/75MIN Diagnoses Acute respiratory failure with hypoxia and hypercapnia J96.01; J96.02 Influenza due to identified 2009 H1N1 influenza virus with pneumonia J10.00 Pneumonia of left upper lobe due to infectious organism J18.9 Chronic obstructive pulmonary disease, unspecified COPD type J44.9 COPD type: unspecified COPD Chronic respiratory failure with hypoxia J96.11 Myelopathy concurrent with and due to spinal stenosis of cervical region M48.02; G99.2 Opioid dependence F11.20 (4) COPD (chronic obstructive pulmonary disease) COPD type: unspecified COPD Qualified Code(s): J44.9 - Chronic obstructive pulmonary disease, unspecified
[2023-06-29] MEDS: OSELTAMIVIR PHOSPHATE 75 MG CAP PO SCH (21:43)
[2023-06-29] MEDS ORDERED: bisacodyL 10 MG SUPP PR PRN (21:59)
[2023-06-29] MEDS ORDERED: POLYETHYLENE (MIRALAX) 17 GM PACK PO PRN (21:59)
[2023-06-29] MEDS ORDERED: ONDANSETRON 4 MG OD TAB PO PRN (21:59)
[2023-06-29] MEDS ORDERED: NSS + 20MEQ KCL 20 MEQ/1,000 ML BAG IV SCH (23:30)
[2023-06-29] MEDS ORDERED: Nursing to Pharmacy Communication SCH (23:45)
[2023-06-30] MEDS: methylPREDNISolone 40 MG in SYRINGE 0 ML IV SCH ×3 (00:12→16:00)
[2023-06-30] MEDS: CEFEPIME 2,000 MG in SYRINGE 0 ML IV SCH ×2 (00:13→08:33)
[2023-06-30] MEDS ORDERED: PANTOprazole 40 MG in SYRINGE 0 ML IV ONE (01:45)
[2023-06-30] MEDS: LORazepam 0.5 MG TAB PO SCH ×4 (02:22→21:09)
[2023-06-30] MEDS ORDERED: ALBUT/IPRATROP 3MG/0.5MG NEB 3 ML VIAL ONE (04:01)
[2023-06-30] MEDS ORDERED: methylPREDNISolone 80 MG in SYRINGE 0 ML IV STA (04:08)
[2023-06-30 04:35] LABS: Albumin Globulin Ratio 1.3 (0.9-2); Albumin Level 3.3 gm/dl (3.4-5.0); BUN Creatinine Ratio 30.4 (10-20); Bilirubin,Total 0.3 mg/dl (0.2-1.0); Calcium 8.3 mg/dl (8.6-10.3); Creatinine Clr Calc Pharmacy 95.8 ml/min; Est GFR (African American) 113.1 ml/min; Est GFR (Non-African American) 97.5 ml/min; Globulin 2.6 gm/dl (2.5-4.0); Magnesium 1.8 mg/dl (1.7-2.4); Potassium 4.2 mmol/L (3.5-5.1); Total Protein 5.9 gm/dl (6.0-8.3)
[2023-06-30] MEDS ORDERED: VANCOMYCIN HCL 750 MG in SODIUM CHLORIDE 0.9% 250 ML IV SCH (06:00)
[2023-06-30 06:16] LABS: Hematocrit (blood only) 35.3 % (42.0-52.0); Hemoglobin 11.7 g/dl (14.0-18.0); Mean Corpuscular Hemoglobin 31.5 pg (25.0-34.0); Mean Corpuscular Hgb Conc 33.1 g/dL (32.0-36.0); Mean Corpuscular Volume 94.9 fL (80.0-100.0); Mean Platelet Volume 10.3 fL (9.4-12.4); Platelet Count 163 K/uL (130-400); RDW Coefficient of Variation 12.5 % (11.5-14.5); RDW Standard Deviation 43.3 fL (36.4-46.3); Red Blood Count 3.72 M/uL (4.70-6.10); White Blood Count 7.49 K/ul (4.8-10.8)
[2023-06-30 06:18] LABS: Immature Granulocytes # (auto) 0.17 K/uL (0.01-0.20); Immature Granulocytes % (auto) 2.3 %; Lymphocytes # (auto) 0.26 K/uL (1.20-3.40); Lymphocytes % (auto) 3.5 %; Monocytes # (auto) 0.31 K/uL (0.11-0.59); Monocytes % (auto) 4.1 %; Neutrophils # (auto) 6.75 K/uL (1.40-6.50); Neutrophils % (auto) 90.1 %; RBC Morphology Unremarkable
[2023-06-30] MEDS: ALBUT/IPRATROP 3MG/0.5MG NEB 3 ML VIAL NEB SCH ×4 (07:12→21:11)
[2023-06-30 07:55] LABS: Appearance Urine Clear (Clear); Bacteria Urine Automated Negative (Negative); Bilirubin Urine Negative (Negative); Blood Urine Negative (Negative); Color Urine Yellow; Glucose Urine UA Negative (Negative); Ketones Urine 3+ (Negative); Leukocyte Esterase Urine Negative (Negative); Nitrite Urine Negative (Negative); Protein Urine 1+ (Negative); RBC Urine Automated 0-4 /hpf (0-4); Specific Gravity Urine 1.042 (1.000-1.030); Urobilinogen Urine Negative (Negative)
[2023-06-30] MEDS ORDERED: VANCOMYCIN HCL 1,000 MG in SODIUM CHLORIDE 0.9% 500 ML IV SCH (08:00)
[2023-06-30] MEDS: FAMOTIDINE 20 MG TAB PO SCH (08:18)
[2023-06-30] MEDS: GABAPENTIN 800 MG TAB PO SCH ×3 (08:18→21:09)
[2023-06-30] MEDS: GABAPENTIN 100 MG CAP PO SCH ×3 (08:18→21:10)
[2023-06-30] MEDS: DOCUSATE SODIUM 100 MG CAP PO SCH ×2 (08:19→21:10)
[2023-06-30] MEDS: buPROPion XL 150 MG TABCR PO SCH (08:19)
[2023-06-30] MEDS: CALCIUM 600MG + VIT D 400 IU TAB PO SCH ×2 (08:19→21:10)
[2023-06-30] MEDS: CELECOXIB 100 MG CAP PO SCH (08:19)
[2023-06-30] MEDS: ACETAMINOPHEN 500 MG TAB PO SCH ×3 (08:19→21:09)
[2023-06-30] MEDS: guaiFENesin 600 MG TABCR PO SCH ×2 (08:19→21:10)
[2023-06-30] MEDS: THIAMINE HCL 100 MG TAB PO SCH (08:19)
[2023-06-30] MEDS: DOCUSATE SODIUM/SENNA 50/8.6MG TAB PO SCH ×2 (08:19→21:09)
[2023-06-30] MEDS: busPIRone 15 MG TAB PO SCH ×2 (08:19→21:09)
[2023-06-30] MEDS: OSELTAMIVIR PHOSPHATE 75 MG CAP PO SCH ×2 (08:22→21:10)
[2023-06-30 09:45] LABS: HCO3 VBG 28 mmol/L; Oxygen Saturation VBG < 60.0 %; PCO2 VBG 56 mmHg (38-50); PO2 VBG 27 mmHg; pH VBG 7.31 (7.36-7.41)
[2023-06-30 10:05] LABS: Phosphorus 1.7 mg/dl (2.5-4.9)
[2023-06-30] MEDS ORDERED: FAMOTIDINE 20 MG in SYRINGE 3 ML IV ONE (10:15)
[2023-06-30 10:21] LABS: Thyroid Stimulating Hormone 0.146 uIu/ml (0.300-4.500)
--- NOTE | 2023-06-30 10:50 | Electrocardiogram Report ---
Test Reason : Blood Pressure : / mmHG Vent. Rate : 127 BPM Atrial Rate : 127 BPM P-R Int : 124 ms QRS Dur : 070 ms QT Int : 270 ms P-R-T Axes : 058 039 080 degrees QTc Int : 392 ms Sinus tachycardia Otherwise normal ECG When compared with ECG of 08-JAN-2022 10:15, No significant change was found Confirmed by Henry Almanza ([id number]) on 06/30/2023 10:50:28 AM Referred By: REFERRED SELF Confirmed By:Henry Almanza
[2023-06-30 11:03] LABS: T4 Free Thyroxine 1.07 ng/dl (0.61-1.60)
--- NOTE | 2023-06-30 11:10 | Hospitalist Progress Note ---
Date of Service June 30, 2023 Assessment & Plan (1) Acute on chronic respiratory failure with hypoxia and hypercapnia: Plan: acute component 2nd to fluA infection, left-sided pneumonia (likely bacterial), COPD with exacerbation, etc. chronic component - COPD, left-sided hemidiaphragm elevation, etc up until about 6 months ago (per patient) he was on NC O2 2.5 L continuously uncertain why it was stopped due to hypercapnia I ordered BIPAP earlier today he wore such for 2-3 hours repeat VBG improved plan to use BIPAP at [facility] keep O2 sats 90-92% on supplemental O2 (2) Pneumonia: Plan: left-sided extensive, severe cxr this am with worsening infiltrates change cefepime to zosyn latter will cover gram negatives and, if pneumonia is from aspiration, also anaerobes MRSA [employer] swab negative defer on atypical coverage for now see #1, #3 (3) Influenza due to identified 2008 H1N1 influenza virus with pneumonia: Plan: fluA infection tamiflu 75mg BID x 5 days supportive care treat superimposed bacterial superinfection of left lung (4) Sepsis: Plan: 2nd influenza A infection 2nd left-sided pneumonia ?bacteremia? (see #6 below) (5) Vocal cord paralysis: Plan: history of such per records risk factor for aspiration reason for vocal cord paralysis? prior c-spine surgery? other? (6) Positive blood culture: Plan: GPC clusters 2 out of 4 bottles from admission + for such uncertain if pathogenic or contaminant obtain repeat blood cx's x 2 sets continue IV vancomycin (7) Chronically elevated hemidiaphragm: Plan: left-side etiology uncertain present for several years has seen [facility] for this - no Rx recommended during the last office visit in 2020 (8) COPD (chronic obstructive pulmonary disease): Plan: with exacerbation chronic prednisone use - 5mg QOD - for COPD? for #9? outpatient records suggest it is for chronic pain either way - cont steroids in the form of solumedrol 40mg IV q8h cont [facility] pulmonary consult requested and recs appreciated (9) Hypertension: Plan: not on meds for such follow BPs (10) Myelopathy concurrent with and due to spinal stenosis of cervical region: Plan: severe 04/2020 - extensive c-spine surgery by Dr Álvarez outpatient pulmonary note from 2020 suggests that some of his vocal cord paralysis +/- hemidiaphragm elevation could be from prior surgery vs the c-spine disease itself (11) Depression: Plan: cont all home meds (12) Opioid dependence: Plan: oxycodone 15mg q4h prn chronic back/neck pain PDMP shows chronic prescriptions for oxy 10's just recently his dose was increased to 15mg tabs cont cautious use of oxycodone in the midst of his respiratory illness (13) Acute metabolic encephalopathy: Plan: multifactorial - influenza infection, left-sided pneumonia, hypercapnia, hypoxia, etc supportive care treat flu treat pneumonia BIPAP for elevated CO2 keep O2 sats 90-92% (14) Hypophosphatemia: Plan: mild add K-Phos 1 cap qid repeat level in 48 hours (15) Acid reflux: Plan: takes pepcid daily at home having frequent reflux symptoms cont PPI add carafate qid cont usual pepcid 20mg daily (16) DVT prophylaxis: Plan: he may need bronchoscopy tomorrow - hold chemical DVT prophylaxis for now Plan left message for pt's son, Jules, on his voicemail this evening care d/w speech therapy care d/w pulmonary care d/w respiratory patient remains very ill and at high risk of worsening illness and need for ICU, intubation/mech ventilation, etc very complex care coordination - total care time about 90 minutes (which includes extensive chart review, multiple conversations as noted above, etc) Admission and Anticipated Discharge Date Admission Date: June 29, 2023 Subjective events of overnight reviewed during my bedside visit he was very lethargic, falling asleep several times while we were talking he was able to tell me that indeed he is very dyspneic he was unable to complete sentences because of the dyspnea he reports he used to be on O2 at home but stopped using it "6 months ago" he is not on BIPAP or CPAP he reports a cough he cannot bring up sputum he has had intermittent chest discomfort since yesterday - comes/goes, central in location, ?pleuritic he confirms he takes chronic pain meds for c-spine disease also takes ativan 4x's daily Review of Systems Review of Systems: gen - weak, fatigued pulm - no hemoptysis GI - no pain or N/V but having "heartburn" Physical Exam Physical Exam: gen - looks very ill, lethargic, cannot complete sentences due to dyspnea, increased work of breathing mouth - MM dry neck - no JVD heart - tachy, s1 s2, no obvious murmur lungs - decreased BS left lung (upper and lower lobes); mild rales L base; CTA on R; +increased work of breathing - retractions, tachypnea abd - soft NT ND BS+ ext - no edema, pulses 2+ b/l psych - lethargic, confused Results & Data Results & Data Vital Signs (Past 12 Hours) Vital Signs Temp Pulse Pulse Resp BP Pulse Ox Pulse Ox 06/30/23 10:53 06/30/23 09:57 83 24 98 06/30/23 09:00 37 C 106 H 30 H 144/88 H 97 06/30/23 07:15 118 H 32 H 98 06/30/23 07:13 94 H 06/30/23 04:13 100 H 28 H 96 06/30/23 04:11 102 H 28 H 96 06/30/23 03:30 06/30/23 01:29 36.8 C 114 H 20 150/103 H 06/30/23 01:00 100 H 16 138/91 97 06/30/23 00:49 113 H 19 136/92 97 06/30/23 00:45 109 H 20 136/92 97 06/30/23 00:30 114 H 21 169/123 H 94 06/30/23 00:00 110 H 22 122/83 99 06/29/23 23:47 113 H 06/29/23 23:37 111 H 22 146/75 H 96 06/29/23 23:37 95 06/29/23 23:37 95 O2 Del Method O2 Del Method O2 Flow Rate O2 Flow Rate FiO2 06/30/23 10:53 Nasal Cannula 3 06/30/23 09:57 High Flow Nasal Cannula 30 50 06/30/23 09:00 High Flow Nasal Cannula 30 50 06/30/23 07:15 High Flow Nasal Cannula 40 60 06/30/23 07:13 06/30/23 04:13 High Flow Nasal Cannula 40 60 06/30/23 04:11 High Flow Nasal Cannula 40 60 06/30/23 03:30 Oxymask, High Flow Nasal Cannula 7 06/30/23 01:29 06/30/23 01:00 Oxymask 7 06/30/23 00:49 Oxymask 7 06/30/23 00:45 Oxymask 7 06/30/23 00:30 Oxymask 7 06/30/23 00:00 Oxymask 7 06/29/23 23:47 06/29/23 23:37 Oxymask 7 06/29/23 23:37 Oxymask 7 06/29/23 23:37 Oxymask 7 Laboratory Results Laboratory Results - last 24 hr 06/29/23 06/29/23 06/30/23 18:27 21:09 03:42 WBC 7.49 RBC 3.72 L Hgb 11.7 L D Hct 35.3 L MCV 94.9 MCH 31.5 MCHC 33.1 RDW Std Deviation 43.3 RDW Coeff of Stephen 12.5 Plt Count 163 MPV 10.3 Immature Gran % (Auto) 2.3 Neut % (Auto) 90.1 Lymph % (Auto) 3.5 [place] % (Auto) 4.1 Eos % (Auto) 0.0 Baso % (Auto) 0.0 Neut # (Auto) 6.75 H Lymph # (Auto) 0.26 L [place] # (Auto) 0.31 Eos # (Auto) 0.00 Baso # (Auto) 0.00 Immature Gran # (Auto) 0.17 RBC Morphology Unremarkable ABG pH 7.33 L ABG pCO2 61 H ABG pO2 87 ABG HCO3 32 H ABG O2 Saturation 98.0 H ABG Base Excess 4.5 H [place] Test Pos VBG pH VBG pCO2 VBG pO2 VBG HCO3 VBG O2 Saturation VBG Base Excess Oxygen Given 7 L Sodium 139 Potassium 4.2 Chloride 102 Carbon Dioxide 28 Anion Gap 9 BUN 21 Creatinine 0.69 D Est Cr Clr Drug Dosing 95.8 Est GFR ( Amer) 113.1 Est GFR (Non-Af Amer) 97.5 BUN/Creatinine Ratio 30.4 H Glucose 101 H Calcium 8.3 L D Phosphorus Magnesium 1.8 Total Bilirubin 0.3 AST 35 ALT 13 Alkaline Phosphatase 37 Troponin I High Sens Total Protein 5.9 L D Albumin 3.3 L Globulin 2.6 Albumin/Globulin Ratio 1.3 TSH Free T4 Urine Color Urine Appearance Urine pH Ur Specific [place] Urine Protein Urine Glucose (UA) Urine Ketones Urine Blood Urine Nitrite Urine Bilirubin Urine Urobilinogen Ur Leukocyte Esterase Urine WBC (Auto) Urine RBC (Auto) U Hyaline Cast (Auto) U Epithel Cells (Auto) Urine Bacteria (Auto) Nasal Screen MRSA (PCR) Staphylococcus sp PCR DETECTED A Bld Cult ID Panel PCR See PCR Comment 06/30/23 06/30/23 06/30/23 08:00 09:31 14:09 WBC RBC Hgb Hct MCV MCH MCHC RDW Std Deviation RDW Coeff of Stephen Plt Count MPV Immature Gran % (Auto) Neut % (Auto) Lymph % (Auto) [place] % (Auto) Eos % (Auto) Baso % (Auto) Neut # (Auto) Lymph # (Auto) [place] # (Auto) Eos # (Auto) Baso # (Auto) Immature Gran # (Auto) RBC Morphology ABG pH ABG pCO2 ABG pO2 ABG HCO3 ABG O2 Saturation ABG Base Excess [place] Test VBG pH 7.31 L 7.33 L VBG pCO2 56 H 51 H VBG pO2 27 26 VBG HCO3 28 27 VBG O2 Saturation < 60.0 < 60.0 VBG Base Excess 1.0 0.3 Oxygen Given Sodium Potassium Chloride Carbon Dioxide Anion Gap BUN Creatinine Est Cr Clr Drug Dosing Est GFR ( Amer) Est GFR (Non-Af Amer) BUN/Creatinine Ratio Glucose Calcium Phosphorus 1.7 L Magnesium Total Bilirubin AST ALT Alkaline Phosphatase Troponin I High Sens 16.1 Total Protein Albumin Globulin Albumin/Globulin Ratio TSH 0.146 L Free T4 1.07 Urine Color Urine Appearance Urine pH Ur Specific [place] Urine Protein Urine Glucose (UA) Urine Ketones Urine Blood Urine Nitrite Urine Bilirubin Urine Urobilinogen Ur Leukocyte Esterase Urine WBC (Auto) Urine RBC (Auto) U Hyaline Cast (Auto) U Epithel Cells (Auto) Urine Bacteria (Auto) Nasal Screen MRSA (PCR) Negative Staphylococcus sp PCR Bld Cult ID Panel PCR 06/30/23 Unknown WBC RBC Hgb Hct MCV MCH MCHC RDW Std Deviation RDW Coeff of Stephen Plt Count MPV Immature Gran % (Auto) Neut % (Auto) Lymph % (Auto) [place] % (Auto) Eos % (Auto) Baso % (Auto) Neut # (Auto) Lymph # (Auto) [place] # (Auto) Eos # (Auto) Baso # (Auto) Immature Gran # (Auto) RBC Morphology ABG pH ABG pCO2 ABG pO2 ABG HCO3 ABG O2 Saturation ABG Base Excess [place] Test VBG pH VBG pCO2 VBG pO2 VBG HCO3 VBG O2 Saturation VBG Base Excess Oxygen Given Sodium Potassium Chloride Carbon Dioxide Anion Gap BUN Creatinine Est Cr Clr Drug Dosing Est GFR ( Amer) Est GFR (Non-Af Amer) BUN/Creatinine Ratio Glucose Calcium Phosphorus Magnesium Total Bilirubin AST ALT Alkaline Phosphatase Troponin I High Sens Total Protein Albumin Globulin Albumin/Globulin Ratio TSH Free T4 Urine Color Yellow Urine Appearance Clear Urine pH 6.0 Ur Specific [place] 1.042 H Urine Protein 1+ H Urine Glucose (UA) Negative Urine Ketones 3+ H Urine Blood Negative Urine Nitrite Negative Urine Bilirubin Negative Urine Urobilinogen Negative Ur Leukocyte Esterase Negative Urine WBC (Auto) 1-5 Urine RBC (Auto) 0-4 U Hyaline Cast (Auto) 1-5 U Epithel Cells (Auto) 5-10 H Urine Bacteria (Auto) Negative Nasal Screen MRSA (PCR) Staphylococcus sp PCR Bld Cult ID Panel PCR Diagnostic Findings Chest X-Ray 06/30/23 11:09 XR chest 1V portable CLINICAL HISTORY: worsening resp distress; fluA, pneumonia COMPARISON STUDY: Chest radiograph November 28, 2023. Chest CT February 18, 2021. FINDINGS: Postoperative findings within the spine are incidentally noted. Thoracolumbar spine levoscoliosis is present as well as elevation of the left hemidiaphragm. Extensive left lung consolidation has progressed. Medial right basilar there is also opacity at the medial right lung base. There is no evidence for pulmonary edema. There is no pneumothorax. Small left pleural effusion is suspected. IMPRESSION: 1. Progression of extensive left lung airspace opacity which favors pneumonia. Suspected small left pleural effusion. 2. Chronic elevation of the left hemidiaphragm. 3. Medial right basilar opacity which could reflect pneumonia or atelectasis. ACT 112: Negative or not required by law. Electronically signed by: Mode Real M.D. 06/30/2023 2:21 PM PG Care Time/CCT Total # of Minutes Spent Total Time Spent with Patient: Total time spent is greater than 50% in coordination of care (as documented) at patient's floor/unit and/or counseling patient: Prolonged Care Time Prolonged Care Time: Yes Total Prolonged Care Time: 90 Coding Level of Care Code 79464 SUB INP/OBS CARE 3/50MIN (25 - SIGNIFICANT, SEPARATELY IDENTIFIABLE ) Diagnoses Acute on chronic respiratory failure with hypoxia and hypercapnia J96.21; J96.22 Pneumonia J18.9 Laterality: unspecified laterality Lung location: unspecified part of lung Pneumonia type: due to unspecified organism Influenza due to identified 2009 H1N1 influenza virus with pneumonia J10.00 Sepsis A41.9 Sepsis acute organ dysfunction status: unspecified Sepsis type: sepsis due to unspecified organism Vocal cord paralysis J38.00 Positive blood culture R78.81 Chronically elevated hemidiaphragm J98.6 Chronic obstructive pulmonary disease, unspecified COPD type J44.9 COPD type: unspecified COPD Primary hypertension I10 Hypertension type: primary hypertension Myelopathy concurrent with and due to spinal stenosis of cervical region M48.02; G99.2 Depression F32.0 Active/Remission status: currently active Depression Type: major depressive disorder Major depression episode severity: mild Major depression recurrence: single episode Opioid dependence F11.20 Acute metabolic encephalopathy G93.41 Hypophosphatemia E83.39 Acid reflux K21.9 DVT prophylaxis Z29.9 Additional Codes Prolonged Care Time - Prolonged Care Time: Yes ([id number]) (2) Pneumonia Laterality: unspecified laterality Lung location: unspecified part of lung Pneumonia type: due to unspecified organism Qualified Code(s): J18.9 - Pneumonia, unspecified organism (4) Sepsis Sepsis acute organ dysfunction status: unspecified Sepsis type: sepsis due to unspecified organism Qualified Code(s): A41.9 - Sepsis, unspecified organism (8) COPD (chronic obstructive pulmonary disease) COPD type: unspecified COPD Qualified Code(s): J44.9 - Chronic obstructive pulmonary disease, unspecified (9) Hypertension Hypertension type: primary hypertension Qualified Code(s): I10 - Essential (primary) hypertension (11) Depression Active/Remission status: currently active Depression Type: major depressive disorder Major depression episode severity: mild Major depression recurrence: single episode Qualified Code(s): F32.0 - Major depressive disorder, single episode, mild
[2023-06-30 13:07] LABS: A calco-baum cmplx NotReported Not Detected (NotDetected); Bact fragilis Not Reported Not Detected (NotDetected); Blood Culture Id Panel See PCR Comment (NotDetected); C auris Not Reported Not Detected (NotDetected); Calbicans Not Reported Not Detected (NotDetected); Candida glabrata Not Reported Not Detected (NotDetected); Candida krusei Not Reported Not Detected (NotDetected); Cneoformans/gatti Not Reported Not Detected (NotDetected); Cparapsilosis Not Reported Not Detected (NotDetected); E cloacae compx Not Reported Not Detected (NotDetected); Efaecalis Not Reported Not Detected (NotDetected); Efaecium Not Reported Not Detected (NotDetected); Enterobacterales Not Reported Not Detected (NotDetected); Escherichia coli Not Reported Not Detected (NotDetected); H influenzae Not Reported Not Detected (NotDetected); K aerogenes Not Reported Not Detected (NotDetected); Koxytoca Not Reported Not Detected (NotDetected); Kpneumoniae grp Not Reported Not Detected (NotDetected); Lmonocyt Not Reported Not Detected (NotDetected); N meningitidis Not Reported Not Detected (NotDetected); P aeruginosa Not Reported Not Detected (NotDetected); Proteus spp Not Reported Not Detected (NotDetected); Salmonella spp Not Reported Not Detected (NotDetected); Smarcescens Not Reported Not Detected (NotDetected); Staph lugdunensis Not Reported Not Detected (NotDetected); Staph spp. Not Reported DETECTED (NotDetected); Staphaureus Not Reported Not Detected (NotDetected); Staphepi Not Reported Not Detected (NotDetected); Stenmaltophilia Not Reported Not Detected (NotDetected); Strep agal(GrpB) Not Reported Not Detected (NotDetected); Strep pneum Not Reported Not Detected (NotDetected); Strep pyog (GrpA) Not Reported Not Detected (NotDetected); Strep spp Not Reported Not Detected (NotDetected)
[2023-06-30 13:14] LABS: Staphylococcus spp. DETECTED (NotDetected)
[2023-06-30] MEDS ORDERED: PIPERACILLIN/TAZOBACTAM 4.5 GM in DEXTROSE 5% MINI-B 100 ML IV ONE (13:30)
--- NOTE | 2023-06-30 14:06 | Pulmonary Consultation ---
Date of Consultation June 30, 2023 Assessment & Plan (1) Pneumonia: Laterality: unspecified laterality Lung location: unspecified part of lung Pneumonia type: due to unspecified organism Qualified Code(s): J18.9 - Pneumonia, unspecified organism (2) Acute on chronic respiratory failure with hypoxia and hypercapnia: (3) Influenza due to identified 2009 H1N1 influenza virus with pneumonia: (4) Chronic pulmonary aspiration: (5) Vocal cord weakness: (6) Chronically elevated hemidiaphragm: Plan IMPRESSION: 67-year-old male with significant past medical history of chronic hypoxic respiratory failure, chronic hypercapnic respiratory failure, chronic aspiration events, elevated LEFT-sided hemidiaphragm, vocal cord dysfunction, and acute influenza infection who presented in acute on chronic hypoxic respiratory failure with hypercapnia. RECOMMENDATIONS: 1. Pneumonia - Dense LEFT-sided infiltrative changes noted on follow-up chest x-ray. The patient with escalating oxygen requirements. He was subsequently placed on CPAP as he did become confused and was noted to have an elevation of his CO2. On evaluation, the patient is pleasantly confused, but is not in significant respiratory distress at this time. Patient would benefit from CT chest without to evaluate lung parenchyma as well as possible pulmonary lesions that could be contributing to this worsening infiltrative process. Pending CT evaluation, patient certainly could warrant bronchoscopic evaluation for airway evaluation as well. Will make the patient n.p.o. after midnight in the event of lack of improvement. Will aggressively pulmonary toilet with incentive spirometry, flutter valve, chest vest, and hypertonic saline overnight. Patient is not overtly bronchospastic on exam today. Do not see utility in steroids at this time. High suspicion for aspiration in a patient who has been previously documented as such. Would agree with speech-language pathology evaluation and management moving forward. 2. Acute on chronic hypoxic respiratory failure with hypercapnia - This had been appreciated and documented in the past. The patient's chronically elevated serum CO2 lends itself to the patient's history of elevated hemidiaphragm and poor ventilatory function. Patient ideally would benefit from ongoing positive pressure bilevel ventilation techniques moving forward, however it appears as though the patient has not been consistent with this in the past. This again does not appear to be as much of an acute issue as more of an acute on chronic presentation in a patient who is ill from acute influenza infection. 3. Influenza infection - Continue with supportive care. Pulmonary toileting as above. 4. Chronic pulmonary aspiration - Had been noted within the last 3 years. Patient would benefit from ORDER ENTRY ADMINISTRATOR evaluation and management. Would make n.p.o. after midnight in the event that he does not improve from pulmonary toileting perspective and would warrant bronchoscopy tomorrow. Will add follow-up chest x-ray for the morning. 5. Vocal cord weakness - Likely contributes to the patient's aspiration. Has been evaluated for this in the past by ENT. 6. Chronically elevated hemidiaphragm (LEFT) - Likely resulting in restrictive physiology noted on pulmonary function testing performed on 04/19/2021. Findings consistent with an FVC of 1.57 L or 38% predicted, FEV1 of 1.31 L or 40% predicted, and a ratio of 84%. Moderately decreased DLCO at 44% at that time. His spirometry was also noted to be worse in the supine position versus upright. Patient would benefit from bilevel ventilation moving forward to aid in ventilatory function in a patient with a likely paralyzed LEFT-sided hemidiaphragm. I do not see the utility in continuing with evaluation for this as he has seen thoracic surgery in the past and did not seem to be a surgical candidate. Thank you for allowing us to participate in the care of this pleasant patient. We will be happy to follow along the inpatient side. History of Present Illness Reason for Consultation: acute hypercarbic resp failure, fluA, pneumonia Requesting Physician: Dr. Townsend Attending Physician: David Townsend MD History of Present Illness Patient is a 67-year-old male who is previously followed in the outpatient pulmonary clinic with a history of respiratory difficulties including vocal cord paralysis, possible recurrent aspiration, LEFT-sided diaphragmatic weakness/paralysis, and hypercarbic respiratory failure. Patient had been evaluated in the hospital setting during a hospitalization in January 2021. He was followed in the outpatient setting where he was subsequently referred to both ENT as well as thoracic surgery at [facility]. 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 Additionally, he is undergone evaluation by ENT which showed LEFT-sided true vocal cord hypomobility with slight the present abduction/adduction and small mid glottic gap. Patient was not felt to be a surgical candidate for LEFT-sided elevated hemidiaphragm and this was felt to be largely related to chronic aspiration. There seems to be a drop off at this point in 2020 until now. Patient presented to the emergency department last evening with LEFT-sided weakness and cough consistent with green sputum. Patient was requiring escalating doses of oxygen. Overnight, the patient was noted to have an increasing oxygen requirement and today he was felt to be obtunded. He appeared to be retaining CO2. Chest x-ray was performed this morning which showed worsening LEFT-sided infiltrative changes as well. Pulmonary medicine was consulted after the patient was placed on BiPAP to aid in ventilation. Upon evaluation in the emergency department, the patient is awake and alert. The patient is not oriented to time or location. He knows his date of . He has some grasp on his health history. He is able to answer current questions relatively appropriately. Otherwise, he is an unreliable historian. Allergies Allergy/AdvReac Type Severity Reaction Status Date / Time erythromycin base Allergy Severe DIFFICULTY Verified 06/29/23 18:21 BREATHING, THROAT SWELLS, RASH Home Medications Medication Instructions Recorded Confirmed Type acetaminophen 500 mg tablet 1,000 mg (2 x 500 mg) PO TID #180 02/26/21 06/29/23 Rx (Tylenol Extra Strength) tabs bisacodyl 10 mg rectal suppository 10 mg CO DAILY PRN constipation 02/26/21 06/29/23 Rx #12 ea calcium 600 mg-D3 800 unit-mag11 1 tab PO BID #60 tabs 02/26/21 06/29/23 Rx 50 zj-lbua-rbvunt-nati-s.borat tablet (Caltrate 600-D Plus Minerals) cetirizine 10 mg tablet 10 mg PO DAILY PRN allergy 02/26/21 06/29/23 Rx symptoms #10 tabs melatonin 3 mg tablet 3 mg PO HS #30 tabs 02/26/21 06/29/23 Rx thiamine HCl (vitamin B1) 100 mg 100 mg PO QAM #30 tabs 02/26/21 06/29/23 Rx tablet (Vitamin B-1) docusate sodium 100 mg capsule 100 mg PO BID #60 caps 07/28/22 06/29/23 Rx sennosides 8.6 mg-docusate sodium 2 tab-cap (2 x 8.6-50 mg) PO BID 07/28/22 06/29/23 Rx 50 mg capsule (Senna Plus) #120 caps celecoxib 100 mg capsule (Celebrex) 100 mg PO DAILY #30 caps 01/23/23 06/29/23 Rx famotidine 20 mg tablet 20 mg PO DAILY #30 tabs 01/23/23 06/29/23 Rx prednisone 5 mg tablet 5 mg PO Q OTHER DAY #15 tabs 02/09/23 06/29/23 Rx buspirone 15 mg tablet 15 mg PO BID #60 tabs 03/23/23 06/29/23 Rx ondansetron 4 mg disintegrating 4 mg PO Q4H PRN nausea and 03/24/23 06/29/23 Rx tablet vomiting #10 tabs bupropion HCl 150 mg 24 hr tablet, 150 mg PO QAM #30 tabs 05/04/23 06/29/23 Rx extended release (Wellbutrin XL) lorazepam 0.5 mg tablet (Ativan) 0.5 mg PO Q6H anxiety #120 tabs 05/08/23 06/29/23 Rx gabapentin 100 mg capsule 100 mg PO TID #90 caps 06/10/23 06/29/23 Rx oxycodone 15 mg tablet 15 mg PO Q4H PRN pain #120 tabs 06/10/23 06/29/23 Rx polyethylene glycol 3350 17 17 g PO DAILY PRN Constipation 06/10/23 06/29/23 History gram/dose oral powder (Miralax) pramoxine 1 % topical cream 1 applic topical DAILY PRN Skin 06/10/23 06/29/23 History (CeraVe Itch Relief) Irritation gabapentin 800 mg tablet 800 mg PO TID #90 tabs 06/15/23 06/29/23 Rx mirtazapine 30 mg tablet 30 mg PO HS #30 tabs 06/15/23 06/29/23 Rx atorvastatin 10 mg tablet 10 mg PO HS 06/29/23 06/29/23 History Patient History Medical History History of recent fall Osteoarthritis Degenerative disc disease Chronic back pain Hypertension Diverticular disease Venous reflux Stenosis of cervical spine with myelopathy Alcohol withdrawal Suicidal ideation Chronic, continuous use of opioids Spinal stenosis of lumbar region Hypoxia Pneumonia Anxiety Arthritis Hearing difficulty Hyperlipidemia Stomach ulcer Neuropathy Surgical History Hx of umbilical hernia repair History of right inguinal hernia repair History of left inguinal hernia repair Foreign body of right eye History of tonsillectomy History of bowel resection History of colonoscopy History of appendectomy History of esophagogastroduodenoscopy (EGD) History of oral surgery Family History Mother Anxiety Depression Cardiac disorder Hypertension Diabetes Mesothelioma Father Mesothelioma Diabetes Brother Diabetes Other No significant family history Social History (Updated 06/10/23 @ 12:57 by Francisca Ruano LPN) Smoking Status: Never smoker Tobacco Type: Cigarettes Second Hand Exposure: No; Do You Dip or Chew Tobacco: No; Tobacco Cessation Education Requested by Patient: No Hx Alcohol Use: No Hx Substance Use: No Preferred Language: Burkinan Communication Ability: Effective Visual Impairment: Limited Hearing Ability: Hard of Hearing Office Agent Required: No Beliefs That Will Affect Care: None marital status: / Current Living Situation: Alone Current Living Situation Comment: [facility] current occupational status: retired How many Children do You have: 1 Other Information That Helps Us Care for You: No Feels Safe at Home: Yes Safety Concerns: Feels Safe At This Time Childhood Exposure to Second-Hand Smoke: Yes Diet: Soft and regular caffeine: Yes during the past year weight has: remained stable Dental Care, Regularly: No Physical Activity Frequency: Does not Exercise Seatbelt Use: always Sunscreen Use: No Assistive Devices: Oxygen - Continuous Review of Systems Review of Systems: A complete 10 point review of systems was reviewed with the patient with pertinent positives and negatives as per history of present illness. All else were negative. Physical Exam Physical Exam: VITAL SIGNS - Vital signs and nursing notes were reviewed. GENERAL - 67-year-old male appearing his stated age who is in mild respiratory distress. SKIN - Without rashes or lesions. NOSE - Midline and without cyanosis. MOUTH/OROPHARYNX - Without perioral cyanosis. NECK - Neck with FROM. LUNGS - Chest wall evaluation demonstrates normal chest wall A:P diameter. Auscultation reveals diminished breath sounds on the LEFT. Coarse breath sounds on the LEFT. No rales or rhonchi appreciated. CARDIAC - RRR with S1/S2. No murmur, rubs, or gallops appreciated. ABDOMEN - BS normoactive all four quadrants. No tenderness, palpable masses, or ascites noted. EXTREMITIES - Nail clubbing not present. No peripheral cyanosis. No pretibial edema present. +3/5 radial palpated throughout. PSYCH - Pleasantly confused. Results & Data Results & Data Vital Signs (Past 12 Hours) Vital Signs Temp Pulse Pulse Resp BP Pulse Ox O2 Del Method 06/30/23 13:16 101 H 25 H 131/90 94 Nasal Cannula 06/30/23 11:40 92 H 16 95 06/30/23 10:53 Nasal Cannula 06/30/23 09:57 83 24 98 High Flow Nasal Cannula 06/30/23 09:00 37 C 106 H 30 H 144/88 H 97 High Flow Nasal Cannula 06/30/23 07:15 118 H 32 H 98 High Flow Nasal Cannula 06/30/23 07:13 94 H 06/30/23 04:13 100 H 28 H 96 High Flow Nasal Cannula 06/30/23 04:11 102 H 28 H 96 High Flow Nasal Cannula 06/30/23 03:30 Oxymask, High Flow Nasal Cannula O2 Flow Rate FiO2 06/30/23 13:16 3 06/30/23 11:40 35 06/30/23 10:53 3 06/30/23 09:57 30 50 06/30/23 09:00 30 50 06/30/23 07:15 40 60 06/30/23 07:13 06/30/23 04:13 40 60 06/30/23 04:11 40 60 06/30/23 03:30 7 PG Care Time/CCT Total # of Minutes Spent Total Time Spent with Patient: Total time spent is greater than 50% in coordination of care (as documented) at patient's floor/unit and/or counseling patient: Coding Level of Care Code 69830 INT INP/OBS CARE 3/75MIN Diagnoses Pneumonia J18.9 Laterality: unspecified laterality Lung location: unspecified part of lung Pneumonia type: due to unspecified organism Acute on chronic respiratory failure with hypoxia and hypercapnia J96.21; J96.22 Influenza due to identified 2009 H1N1 influenza virus with pneumonia J10.00 Chronic pulmonary aspiration T17.908A Vocal cord weakness J38.00 Chronically elevated hemidiaphragm J98.6
[2023-06-30] MEDS: POT PHOSPHATE MONOBASIC W/ SOD TAB PO SCH ×3 (14:10→21:10)
[2023-06-30 14:23] LABS: Base Excess VBG 0.3 mEq/L; HCO3 VBG 27 mmol/L; Oxygen Saturation VBG < 60.0 %; PCO2 VBG 51 mmHg (38-50); PO2 VBG 26 mmHg; pH VBG 7.33 (7.36-7.41)
--- NOTE | 2023-06-30 14:23 | XRay Report ---
XR chest 1V portable CLINICAL HISTORY: worsening resp distress; fluA, pneumonia COMPARISON STUDY: Chest radiograph November 28, 2023. Chest CT February 18, 2021. FINDINGS: Postoperative findings within the spine are incidentally noted. Thoracolumbar spine levosco liosis is present as well as elevation of the left hemidiaphragm. Extensive left lung consolidation h as progressed. Medial right basilar there is also opacity at the medial right lung base. There is no evidence for pulmonary edema. There is no pneumothorax. Small left pleural effusion is suspected. IMPRESSION: 1. Progression of extensive left lung airspace opacity which favors pneumonia. Suspected small left p leural effusion. 2. Chronic elevation of the left hemidiaphragm. 3. Medial right basilar opacity which could reflect pneumonia or atelectasis. ACT 112: Negative or not required by law. Electronically signed by: Mode Real M.D. 06/30/2023 2:21 PM
[2023-06-30] MEDS: SUCRALFATE 1 GM/10 ML UDC PO SCH ×3 (14:36→21:10)
[2023-06-30] MEDS ORDERED: VANCOMYCIN CONSULT ACTIVE PRN (14:46)
[2023-06-30] MEDS ORDERED: VANCOMYCIN HCL 1,500 MG in SODIUM CHLORIDE 0.9% 500 ML IV ONE (15:00)
--- NOTE | 2023-06-30 15:13 | Pharmacy Report ---
Pharmacy PK ABX Note - Date of Service June 30, 2023 - Assessment and Plan Assessment 67 year old M receiving empiric vancomycin and Zosyn for treatment of pneumonia, now with possible gram-positive cocci bacteremia. Pertinent microbiologic data includes: negative MRSA Nasal Swab, 1 of 2 blood cultures growing gram-positive cocci. Biofire shows Staphylococcus species. Vancomycin was originally ordered and discontinued due to negative MRSA nasal swab, but restarted due to the blood culture results. Day # 2 of antimicrobial therapy. Plan Vancomycin * Loading dose: 1250 mg IV x 1 * Maintenance dose: 750 mg IV every 8 hours * Regimen is predicted to achieve target AUC/LUCIO of 400-600 mg/L.hr * Trough level ordered for: 07/01/23 Zosyn * 4.5 g IV q8h - appropriately dosed, no change Pharmacy will continue to follow and will adjust dose/frequency as necessary. Thank you. Pharmacy has transitioned to AUC monitoring for vancomycin. AUC/LUCIO is the preferred PK/PD target and is associated with decreased risk of nephrotoxicity compared to traditional trough targets.
[2023-06-30] MEDS: VANCOMYCIN HCL 750 MG in SODIUM CHLORIDE 0.9% 250 ML IV SCH (15:57)
--- NOTE | 2023-06-30 17:44 | CT Scan Report ---
CT chest diagnostic wo con CT DOSE: 499.05 mGy.cm CLINICAL HISTORY: 67 years-old Male with LEFT sided infiltrative findings, hypoxia. Acute hypoxia TECHNIQUE: Multiaxial CT images of the chest were performed without contrast. A dose lowering techni que was utilized adhering to the principles of ALARA. COMPARISON: And CTA chest 02/18/2021 FINDINGS: Unremarkable thyroid. No lymphadenopathy. Heart is upper limits of normal in size with mode rate to extensive coronary artery calcifications. No pericardial effusion or thoracic aortic aneurysm . Trace pleural effusions. Dependent consolidation within the right lung with air bronchograms. Bilater al intralobular septal thickening. Considerable segmental consolidation throughout the left lung with intermixed groundglass densities and air bronchograms. Study is degraded by respiratory motion. Trac heobronchial secretions with left basilar prominent mucous plugging. Nonspecific diffuse esophageal wall thickening. Colonic diverticulosis. Unremarkable soft tissues. No acute fracture. Cervical spinal fusion hardware. IMPRESSION: 1. Extensive left lung consolidation suggestive of pneumonia with left lung predominant mucus pluggin g. 2. Trace pleural effusions. 3. Nonspecific esophageal wall thickening. Correlate clinically to exclude esophagitis. ACT 112: Negative or not required by law. Electronically signed by: Albert Spaulding M.D. 06/30/2023 5:41 PM
[2023-06-30] MEDS: PIPERACILLIN/TAZOBACTAM 4.5 GM in DEXTROSE 5% MINI-B 100 ML IV SCH (21:08)
[2023-06-30] MEDS: MELATONIN 3 MG TAB PO SCH (21:09)
[2023-06-30] MEDS: MIRTAZAPINE TAB 15 MG TAB PO SCH (21:09)
[2023-06-30] MEDS: ATORVASTATIN 10 MG TAB PO SCH (21:10)
[2023-06-30] MEDS: SODIUM CHLOR 7% 4 ML NEB NEB SCH (21:12)
[2023-07-01] MEDS: methylPREDNISolone 40 MG in SYRINGE 0 ML IV SCH ×4 (01:11→23:42)
[2023-07-01] MEDS: VANCOMYCIN HCL 750 MG in SODIUM CHLORIDE 0.9% 250 ML IV SCH ×4 (01:11→22:15)
[2023-07-01] MEDS: LORazepam 0.5 MG TAB PO SCH ×4 (03:36→20:49)
[2023-07-01] MEDS: PIPERACILLIN/TAZOBACTAM 4.5 GM in DEXTROSE 5% MINI-B 100 ML IV SCH ×3 (04:36→20:51)
[2023-07-01 04:58] LABS: Hematocrit (blood only) 35.5 % (42.0-52.0); Hemoglobin 11.6 g/dl (14.0-18.0); Mean Corpuscular Hemoglobin 30.9 pg (25.0-34.0); Mean Corpuscular Hgb Conc 32.7 g/dL (32.0-36.0); Mean Corpuscular Volume 94.7 fL (80.0-100.0); Mean Platelet Volume 10.4 fL (9.4-12.4); Platelet Count 186 K/uL (130-400); RDW Coefficient of Variation 12.6 % (11.5-14.5); RDW Standard Deviation 44.2 fL (36.4-46.3); Red Blood Count 3.75 M/uL (4.70-6.10); White Blood Count 8.31 K/ul (4.8-10.8)
[2023-07-01 05:05] LABS: BUN Creatinine Ratio 30.9 (10-20); Calcium 8.3 mg/dl (8.6-10.3); Creatinine Clr Calc Pharmacy 97.2 ml/min; Est GFR (African American) 113.7 ml/min; Est GFR (Non-African American) 98.1 ml/min; Potassium 3.8 mmol/L (3.5-5.1)
[2023-07-01] MEDS: SODIUM CHLOR 7% 4 ML NEB NEB SCH ×2 (07:03→19:56)
[2023-07-01] MEDS: ALBUT/IPRATROP 3MG/0.5MG NEB 3 ML VIAL NEB SCH ×4 (07:03→19:55)
--- NOTE | 2023-07-01 07:56 | Pulmonology Progress Note ---
Date of Service July 01, 2023 Assessment & Plan (1) Pneumonia: Laterality: unspecified laterality Lung location: unspecified part of lung Pneumonia type: due to unspecified organism Qualified Code(s): J18.9 - Pneumonia, unspecified organism (2) Acute on chronic respiratory failure with hypoxia and hypercapnia: (3) Influenza due to identified 2009 H1N1 influenza virus with pneumonia: (4) Chronic pulmonary aspiration: (5) Vocal cord weakness: (6) Chronically elevated hemidiaphragm: Plan IMPRESSION: 67-year-old male with significant past medical history of chronic hypoxic respiratory failure, chronic hypercapnic respiratory failure, chronic aspiration events, elevated LEFT-sided hemidiaphragm, vocal cord dysfunction, and acute influenza infection who presented in acute on chronic hypoxic respiratory failure with hypercapnia. RECOMMENDATIONS: 1. Pneumonia - Dense LEFT-sided infiltrative changes noted on follow-up chest x-ray. Remains on 3L nasal cannula. Persistently tachypneic. CXR this AM shows worsening consolidation of the LEFT sided lung field. CT reviewed and shows a dense consolidation with mucoid impaction. Has used chest vest and flutter valve as well as hypertonic saline nebs without improvement. Warrants bronchoscopic evaluation at this point for airway clearance, etc. Will tentatively schedule for noon today. Will obtain consent from patient's contacts as he is unable to give consent himself, but dose state, " do whatever you need to do" when discussing risks, benefits, and alternatives of procedure. Continue with broad spectrum antibiotics for now until bronch cultures available. Continue to cover anerobes for likely lindsey aspiration. Continue with pulmonary toileting as well. 2. Acute on chronic hypoxic respiratory failure with hypercapnia - This had been appreciated and documented in the past. The patient's chronically elevated serum CO2 lends itself to the patient's history of elevated hemidiaphragm and poor ventilatory function. Patient ideally would benefit from positive pressure bilevel ventilation techniques moving forward, however it appears as though the patient has not been consistent with this in the past. This again does not appear to be as much of an acute issue as more of an acute on chronic presentation in a patient who is ill from acute influenza infection. 3. Influenza infection - Continue with supportive care. Pulmonary toileting as above. 4. Chronic pulmonary aspiration - Had been noted within the last 3 years. Patient would benefit from REAL ESTATE AGENT evaluation and management. 5. Vocal cord weakness - Likely contributes to the patient's aspiration. Has been evaluated for this in the past by ENT. 6. Chronically elevated hemidiaphragm (LEFT) - Likely resulting in restrictive physiology noted on pulmonary function testing performed on 04/19/2021. Findings consistent with an FVC of 1.57 L or 38% predicted, FEV1 of 1.31 L or 40% predicted, and a ratio of 84%. Moderately decreased DLCO at 44% at that time. His spirometry was also noted to be worse in the supine position versus upright. Patient would benefit from bilevel ventilation moving forward to aid in ventilatory function in a patient with a likely paralyzed LEFT-sided hemidiaphragm. I do not see the utility in continuing with evaluation for this as he has seen thoracic surgery in the past and did not seem to be a surgical candidate. Thank you for allowing us to participate in the care of this pleasant patient. We will be happy to follow along the inpatient side. Admission and Anticipated Discharge Date Admission Date: June 29, 2023 Subjective Patient seen and evaluated at bedside today. He reports that he did not sleep well last night. He continues to produce copious amounts of sputum. He reports still with some difficulty breathing, but otherwise is doing better mentally. Review of Systems Review of Systems: A complete 10 point review of systems was reviewed with the patient with pertinent positives and negatives as per history of present illness. All else were negative. Physical Exam Physical Exam: VITAL SIGNS - Vital signs and nursing notes were reviewed. GENERAL - 67-year-old male appearing his stated age who is in mild respiratory distress. LUNGS - Tachypnea. Auscultation reveals diminished breath sounds on the LEFT. Coarse breath sounds on the LEFT. No rales or rhonchi appreciated. CARDIAC - RRR with S1/S2. No murmur, rubs, or gallops appreciated. ABDOMEN - BS normoactive all four quadrants. No tenderness, palpable masses, or ascites noted. PSYCH - Pleasantly confused. Results & Data Results & Data Vital Signs (Past 12 Hours) Vital Signs Pulse Pulse Resp BP Pulse Ox O2 Del Method O2 Flow Rate 07/01/23 07:05 87 07/01/23 07:03 87 20 94 Nasal Cannula 3 07/01/23 06:00 94 H 36 H 151/99 H 95 Nasal Cannula 2 07/01/23 05:30 96 H 38 H 126/82 95 Nasal Cannula 2 07/01/23 04:39 91 H 39 H 165/90 H 93 Nasal Cannula 2 07/01/23 04:14 105 H 39 H 78 L Room Air 07/01/23 04:14 85 07/01/23 03:00 75 21 133/82 94 Nasal Cannula 2 07/01/23 02:30 80 30 H 129/84 94 Nasal Cannula 3 07/01/23 02:00 80 29 H 144/89 H 97 Nasal Cannula 3 07/01/23 01:30 83 30 H 123/72 95 Nasal Cannula 3 07/01/23 01:00 78 21 136/88 95 Nasal Cannula 2 07/01/23 00:30 106 H 23 125/76 91 Nasal Cannula 3 07/01/23 00:00 Nasal Cannula 3 06/30/23 23:21 101 H 39 H 145/96 H 93 Nasal Cannula 2 PG Care Time/CCT Total # of Minutes Spent Total Time Spent with Patient: Total time spent is greater than 50% in coordination of care (as documented) at patient's floor/unit and/or counseling patient: Coding Level of Care Code 21551 SUB INP/OBS CARE 3/50MIN Diagnoses Pneumonia J18.9 Laterality: unspecified laterality Lung location: unspecified part of lung Pneumonia type: due to unspecified organism Acute on chronic respiratory failure with hypoxia and hypercapnia J96.21; J96.22 Influenza due to identified 2009 H1N1 influenza virus with pneumonia J10.00 Chronic pulmonary aspiration T17.908A Vocal cord weakness J38.00 Chronically elevated hemidiaphragm J98.6
--- NOTE | 2023-07-01 07:56 | XRay Report ---
XR chest 1V portable CLINICAL HISTORY: f/u COMPARISON STUDY: Chest radiograph and chest CT June 30, 2023. FINDINGS: Elevation of left hemidiaphragm and thoracic spine levoscoliosis are incidentally noted. Th ere are postoperative findings within the cervical spine. There is no pneumothorax. Trace left pleura l effusion is better depicted on prior CT. Extensive left lung airspace opacity has slightly increase d. There is also opacity at the medial right lung base. IMPRESSION: 1. Progression of extensive left lung airspace opacity suggestive of pneumonia. Trace left pleural ef fusion. 2. Opacity at the medial right lung base which which favors atelectasis based on the CT appearance. ACT 112: Negative or not required by law. Electronically signed by: Mode Real M.D. 07/01/2023 7:54 AM
[2023-07-01] MEDS: SUCRALFATE 1 GM/10 ML UDC PO SCH ×4 (08:06→20:52)
[2023-07-01] MEDS: ACETAMINOPHEN 500 MG TAB PO SCH ×3 (08:06→20:50)
[2023-07-01] MEDS: GABAPENTIN 100 MG CAP PO SCH ×3 (08:07→20:52)
[2023-07-01] MEDS: buPROPion XL 150 MG TABCR PO SCH (08:07)
[2023-07-01] MEDS: GABAPENTIN 800 MG TAB PO SCH ×3 (08:07→20:52)
[2023-07-01] MEDS: busPIRone 15 MG TAB PO SCH ×2 (08:07→20:52)
[2023-07-01] MEDS: CALCIUM 600MG + VIT D 400 IU TAB PO SCH ×2 (08:08→20:52)
[2023-07-01] MEDS: THIAMINE HCL 100 MG TAB PO SCH (08:08)
[2023-07-01] MEDS: DOCUSATE SODIUM/SENNA 50/8.6MG TAB PO SCH ×2 (08:08→20:52)
[2023-07-01] MEDS: FAMOTIDINE 20 MG TAB PO SCH (08:08)
[2023-07-01] MEDS: DOCUSATE SODIUM 100 MG CAP PO SCH ×2 (08:08→20:50)
[2023-07-01] MEDS: guaiFENesin 600 MG TABCR PO SCH ×2 (08:08→20:52)
[2023-07-01] MEDS: CELECOXIB 100 MG CAP PO SCH (08:08)
[2023-07-01] MEDS: POT PHOSPHATE MONOBASIC W/ SOD TAB PO SCH ×4 (08:08→21:30)
[2023-07-01] MEDS: oxyCODONE HCL IR 5 MG TAB (IMMEDIATE RELEASE) PO PRN ×4 (09:16→23:33)
[2023-07-01] MEDS: OSELTAMIVIR PHOSPHATE 75 MG CAP PO SCH ×2 (09:17→22:07)
[2023-07-01] MEDS ORDERED: MIDAZOLAM HCL 5 MG/ML 1 ML VIAL ONE (11:26)
[2023-07-01] MEDS ORDERED: fentaNYL citrate PF 100 MCG/2 ML VIAL ONE (11:27)
[2023-07-01] MEDS ORDERED: MIDAZOLAM HCL 1 MG/ML 2ML VIAL ONE (11:27)
--- NOTE | 2023-07-01 12:00 | History & Physical Bridge Note ---
Date of Service July 01, 2023 History & Physical Bridge Note I have examined the patient, reviewed the History & Physical and in the interval since the performance of the History & Physical I have noted the following changes of clinical significance: no changes noted
--- NOTE | 2023-07-01 12:08 | Pre Anesthesia Assessment ---
Date of Service July 01, 2023 Pre Sedation Assessment Vital Signs Pulse Pulse Resp BP BP Pulse Ox O2 Del Method 07/01/23 11:25 84 20 162/125 H 94 Nasal Cannula 07/01/23 09:00 99 H 30 H 96 Nasal Cannula 07/01/23 09:00 129/78 07/01/23 08:30 74 36 H 95 Nasal Cannula 07/01/23 08:00 111 H 30 H 86 L Nasal Cannula 07/01/23 08:00 143/87 H 07/01/23 07:30 145/83 H 07/01/23 07:30 87 37 H 88 L Nasal Cannula 07/01/23 07:05 87 07/01/23 07:03 87 20 94 Nasal Cannula 07/01/23 07:00 140/80 07/01/23 07:00 79 38 H 94 Nasal Cannula 07/01/23 06:52 88 26 H 88 L Room Air 07/01/23 06:00 94 H 36 H 151/99 H 95 Nasal Cannula 07/01/23 05:30 96 H 38 H 126/82 95 Nasal Cannula 07/01/23 04:39 91 H 39 H 165/90 H 93 Nasal Cannula 07/01/23 04:14 105 H 39 H 78 L Room Air 07/01/23 04:14 85 07/01/23 03:00 75 21 133/82 94 Nasal Cannula 07/01/23 02:30 80 30 H 129/84 94 Nasal Cannula 07/01/23 02:00 80 29 H 144/89 H 97 Nasal Cannula 07/01/23 01:30 83 30 H 123/72 95 Nasal Cannula 07/01/23 01:00 78 21 136/88 95 Nasal Cannula 07/01/23 00:30 106 H 23 125/76 91 Nasal Cannula 07/01/23 00:00 Nasal Cannula 06/30/23 23:21 101 H 39 H 145/96 H 93 Nasal Cannula 06/30/23 16:40 92 H 06/30/23 16:17 82 18 143/112 H 93 Nasal Cannula 06/30/23 14:56 79 18 93 Nasal Cannula 06/30/23 13:16 101 H 25 H 131/90 94 Nasal Cannula O2 Flow Rate 07/01/23 11:25 4 07/01/23 09:00 4 07/01/23 09:00 07/01/23 08:30 4 07/01/23 08:00 2 07/01/23 08:00 07/01/23 07:30 07/01/23 07:30 2 07/01/23 07:05 07/01/23 07:03 3 07/01/23 07:00 07/01/23 07:00 2 07/01/23 06:52 07/01/23 06:00 2 07/01/23 05:30 2 07/01/23 04:39 2 07/01/23 04:14 07/01/23 04:14 07/01/23 03:00 2 07/01/23 02:30 3 07/01/23 02:00 3 07/01/23 01:30 3 07/01/23 01:00 2 07/01/23 00:30 3 07/01/23 00:00 3 06/30/23 23:21 2 06/30/23 16:40 06/30/23 16:17 3 06/30/23 14:56 2 06/30/23 13:16 3 Cardiovascular RRR, no murmur, no edema Respiratory normal respiratory effort, lungs clear to auscultation Pre-Sedation Airway Assessment Smoking Status: Never smoker Hx Sleep Apnea: No Short, Thick Neck: No Thyromental Distance: > or= 3.5 Finger Breadths Oral Cavity: + WNL Mallampati Class: I ASA: ASA3 NPO Status Date of Last Intake of Fluids: 06/30/23 Date of Last Intake of Solid Food: 06/30/23 Notes The planned sedation has been discussed with the patient. Informed Consent was obtained. I have identified the patient, determined the appropriateness of sedation and have assessed the patient immediately prior to the procedure. All medicine(s) and interventions are by my order.
--- NOTE | 2023-07-01 12:50 | Post Anesthesia Assessment ---
Date of Service July 01, 2023 Post Sedation Assessment Vital Signs Pulse Pulse Resp BP BP Pulse Ox O2 Del Method 07/01/23 12:30 111 H 20 162/102 H 94 High Flow Nasal Cannula 07/01/23 12:25 99 H 20 166/104 H 99 High Flow Nasal Cannula 07/01/23 12:15 100 H 20 155/109 H 98 High Flow Nasal Cannula 07/01/23 12:10 98 H 20 154/99 H 98 High Flow Nasal Cannula 07/01/23 11:25 84 20 162/125 H 94 Nasal Cannula 07/01/23 09:00 99 H 30 H 96 Nasal Cannula 07/01/23 09:00 129/78 07/01/23 08:30 74 36 H 95 Nasal Cannula 07/01/23 08:00 111 H 30 H 86 L Nasal Cannula 07/01/23 08:00 143/87 H 07/01/23 07:30 145/83 H 07/01/23 07:30 87 37 H 88 L Nasal Cannula 07/01/23 07:05 87 07/01/23 07:03 87 20 94 Nasal Cannula 07/01/23 07:00 140/80 07/01/23 07:00 79 38 H 94 Nasal Cannula 07/01/23 06:52 88 26 H 88 L Room Air 07/01/23 06:00 94 H 36 H 151/99 H 95 Nasal Cannula 07/01/23 05:30 96 H 38 H 126/82 95 Nasal Cannula 07/01/23 04:39 91 H 39 H 165/90 H 93 Nasal Cannula 07/01/23 04:14 105 H 39 H 78 L Room Air 07/01/23 04:14 85 07/01/23 03:00 75 21 133/82 94 Nasal Cannula 07/01/23 02:30 80 30 H 129/84 94 Nasal Cannula 07/01/23 02:00 80 29 H 144/89 H 97 Nasal Cannula 07/01/23 01:30 83 30 H 123/72 95 Nasal Cannula 07/01/23 01:00 78 21 136/88 95 Nasal Cannula 07/01/23 00:30 106 H 23 125/76 91 Nasal Cannula 07/01/23 00:00 Nasal Cannula 06/30/23 23:21 101 H 39 H 145/96 H 93 Nasal Cannula 06/30/23 16:40 92 H 06/30/23 16:17 82 18 143/112 H 93 Nasal Cannula 06/30/23 14:56 79 18 93 Nasal Cannula 06/30/23 13:16 101 H 25 H 131/90 94 Nasal Cannula O2 Flow Rate 07/01/23 12:30 07/01/23 12:25 07/01/23 12:15 07/01/23 12:10 07/01/23 11:25 4 07/01/23 09:00 4 07/01/23 09:00 07/01/23 08:30 4 07/01/23 08:00 2 07/01/23 08:00 07/01/23 07:30 07/01/23 07:30 2 07/01/23 07:05 07/01/23 07:03 3 07/01/23 07:00 07/01/23 07:00 2 07/01/23 06:52 07/01/23 06:00 2 07/01/23 05:30 2 07/01/23 04:39 2 07/01/23 04:14 07/01/23 04:14 07/01/23 03:00 2 07/01/23 02:30 3 07/01/23 02:00 3 07/01/23 01:30 3 07/01/23 01:00 2 07/01/23 00:30 3 07/01/23 00:00 3 06/30/23 23:21 2 06/30/23 16:40 06/30/23 16:17 3 06/30/23 14:56 2 06/30/23 13:16 3 Discharge Sedation Level of Care: Fast Track Phase II Post Sedation Plan On clinical assessment, the patient appears to have tolerated the sedation without complications. Patient is recovering as anticipated. Patient will continue to be monitored by nursing and may be discharged when sedation discharge criteria are met per below protocol. Upon Completions of procedure up to 15 minutes continue every 5 minute vital signs and the P.A.R. score; then discharge to a Phase I or Fast Track to Phase II per the following guidelines: * Discharge Patient to appropriate Phase II area if PAR is 8 or greater or r eturn to pre- procedure baseline. The post - procedure orders will be as directed. * If PAR score is less than 8 or not return to pre-procedure baseline then patient will follow Phase I monitoring till PAR is reached for Phase II. The Phase I may be done in procedure room or may call to secure a Phase I area. * If naloxone or flumazenil are used for reversal, hold in Phase I for continued monitoring from when last reversal dose was given for a minimum of 60 minutes or longer pending the nurse and/or physician discretion of patient condition before discharge to Phase II. Please call the Sedation Physician to re-evaluate and complete post-note for discharge to Phase II area. Do NOT discharge from procedure sedation or Phase 1 until post- sedation evaluation note is complete by procedure /sedation MD Sedation Discharge Instructions to be given to the patient at discharge to home.
--- NOTE | 2023-07-01 12:58 | Procedure Note ---
Supervising Physician Co-Signing Physician Notes PREOPERATIVE DIAGNOSIS: Left lung pneumonia POSTOPERATIVE DIAGNOSIS: Left lung pneumonia PROCEDURE PERFORMED: Flexible fiberoptic bronchoscopy with bronchial washings of the left lower lobe COMPLICATIONS: None. INDICATION: Aspirate secretions and obtain bronchial washing culture PROCEDURE: After obtaining an informed consent, the patient was brought to the Bronchoscopy Suite. The patient had appropriate oxygen, blood pressure, heart rate, and respiratory rate monitoring applied and monitored continuously throughout the procedure. Supplemental oxygen via high flow nasal cannula as per nursing records was applied to the nasopharynx with adequate saturations achieved. Topical anesthesia with nebulized 1% lidocaine was achieved. Subsequent to this, the patient was premedicated with 3 mg of midazolam and 75 mcg of fentanyl. Bite-block was inserted in the mouth. Scope was inserted via the mouth. The oropharynx and larynx were well visualized and were unremarkable There was normal vocal cord motion without masses or lesions. Additional topical anesthesia with 1% lidocaine was applied to the trachea and dianelys. The trachea appeared normal. Dianelys appeared sharp. Bilateral tracheobronchial tree inspection was performed. The airways on the left appeared inflamed and had friable tissue. There was a large mucous plug obscuring the left lower lobe which was aspirated free and sent for culture. Distal to the mucous plug, the airways appeared edematous and friable. Some minimal bleeding was encountered but hemostasis was achieved spontaneously. I then inspected the right airways which appeared unremarkable. The scope was then completely withdrawn. Patient tolerated procedure well. Bronchoalveolar wash sample from the left lower lobe were sent for cell count, Gram stain and bacterial culture, AFB culture and smear, fungal culture and smear and cytology. Recommendations: Follow-up cell count and culture data. Postprocedure chest x-ray pending [facility] [place] Procedure Codes (Charges) Pulmonary/Thoracic Procedure 1: Pulmonary and Thoracic: 48365 Dx bronchoscopy/wash
[2023-07-01] MEDS ORDERED: VANCOMYCIN LEVEL ONE (14:00)
--- NOTE | 2023-07-01 14:57 | XRay Report ---
SINGLE VIEW CHEST CLINICAL HISTORY: Post bronchoscopy. FINDINGS: An AP, portable, upright chest radiograph is compared to study dated 07/01/2023 and correlate d with chest CT dated 06/30/2023. The cardiomediastinal silhouette is obscured. There is atheroscleroti c calcification of the thoracic aorta. There is elevation of the left hemidiaphragm with dense consol idation of the left lower lung. Mild consolidation is seen at the right lung base. This has increased from previous. There are at least small pleural effusions. No pneumothorax is identified. The skelet al structures are osteopenic. The bony thorax is grossly intact. Degenerative change and scoliosis is noted in the spine. Fusion hardware is noted in the lower cervical spine. IMPRESSION: 1. No pneumothorax is seen post procedure. 2. Bibasilar consolidation is again noted, left lung greater than right. Right basilar consolidation has modestly increased from previous. 3. There are at least small pleural effusions. ACT 112: Negative or not required by law. Electronically signed by: Nathaniel Pleitez M.D. 07/01/2023 2:56 PM
--- NOTE | 2023-07-01 15:12 | Pharmacy Report ---
Pharmacy PK ABX Note - Date of Service July 01, 2023 - Assessment and Plan Assessment 67 year old M receiving Vancomycin and Zosyn for treatment of pneumonia and bacteremia. * Day #2 of antimicrobial therapy. * Labs/Vitals: Afebrile. No leukocytosis. SCr stable at 0.68. Procal was elevated at 0.96. * Micro: Influenza A positive. MRSA nasal swab negative. Admission blood cultures are growing Coagulase Negative Staphylococcus in one set (both bottles). Highly suspicious for contamination. Repeat blood cultures are still pending from yesterday. Patient underwent bronchoscopy today so bronch cultures are pending as well. Plan Vancomycin * Current regimen: 750 mg IV every 8 hours * Random level obtained 07/01/23 resulted as 13.3 mcg/mL. This is predicted to achieve target AUC/LUCIO of 400-600 mg/L.hr * Predicted AUC at steady state: 437 mg/L.hr * Continue 750 mg IV every 8 hours * Repeat random level ordered for: 07/03/23 Zosyn * 4.5 g IV q8h - appropriately dosed, no change Pharmacy will continue to follow and will adjust dose/frequency as necessary. Thank you. Pharmacy has transitioned to AUC monitoring for vancomycin. AUC/LUCIO is the preferred PK/PD target and is associated with decreased risk of nephrotoxicity compared to traditional trough targets.
[2023-07-01 15:37] LABS: Fluid Mono/Macrophage 2 %; Lymphocyte Body Fluid Man 4 %; Neutrophil Body Fluid Man 94 %
[2023-07-01] MEDS ORDERED: FUROSEMIDE INJ 20 MG/2 ML VIAL IV ONE (18:58)
[2023-07-01] MEDS: MELATONIN 3 MG TAB PO SCH (20:50)
[2023-07-01] MEDS: ATORVASTATIN 10 MG TAB PO SCH (20:53)
[2023-07-01] MEDS: MIRTAZAPINE TAB 15 MG TAB PO SCH (20:54)
--- NOTE | 2023-07-01 20:56 | Hospitalist Progress Note ---
Date of Service July 01, 2023 Assessment & Plan (1) Acute on chronic respiratory failure with hypoxia and hypercapnia: Plan: acute component 2nd to fluA infection, b/l pneumonia left > right, COPD with exacerbation, ?pulmonary edema. chronic component - COPD, left-sided hemidiaphragm elevation, etc up until about 6 months ago (per patient) he was on NC O2 2.5 L continuously uncertain why it was stopped keep O2 sats 90-92% on supplemental O2. ?pulmonary edema - give lasix 20mg IV x 1 now labs am (2) Pneumonia: Plan: DEANNA/LLL extensive, severe likely bacterial superinfection in the setting of fluA infection remains on zosyn although MRSA [employer] swab was negative will continue vanco due to severity of illness add atypical coverage with doxy 100mg BID appreciate pulmonary assistance s/p bronch today - large mucous plugging found in the left bronchial tree; plugs removed continue NC o2, nebs, steroids, supportive care if any worsening distress --> VBG, BIPAP, etc (3) Influenza due to identified 2008 H1N1 influenza virus with pneumonia: Plan: fluA infection tamiflu 75mg BID x 5 days day #2 today supportive care treat superimposed bacterial superinfection of left lung - see above (4) Sepsis: Plan: 2nd influenza A infection 2nd left-sided pneumonia ?bacteremia? (see #6 below) (5) Vocal cord paralysis: Plan: history of such per records risk factor for aspiration reason for vocal cord paralysis? prior c-spine surgery? other? to have video swallow eval tomorrow (6) Positive blood culture: Plan: coag neg staph 2 out of 8 bottles + for such likely contaminant if repeat blood cx's remain negative thru tomorrow this would support contamination continue IV vancomycin for now (7) Chronically elevated hemidiaphragm: Plan: left-side etiology uncertain present for several years has seen [facility] for this - no Rx recommended during the last office visit in 2020 (8) COPD (chronic obstructive pulmonary disease): Plan: with exacerbation chronic prednisone use - 5mg QOD - for COPD? for #9? outpatient records suggest it is for chronic pain either way - cont steroids in the form of solumedrol 40mg IV q8h cont nebs pulmonary consult appreciated (9) Hypertension: Plan: not on meds for such follow BPs (10) Myelopathy concurrent with and due to spinal stenosis of cervical region: Plan: severe 04/2020 - extensive c-spine surgery by Dr Álvarez outpatient pulmonary note from 2020 suggests that some of his vocal cord paralysis +/- hemidiaphragm elevation could be from prior surgery vs the c-spine disease itself (11) Depression: Plan: cont all home meds (12) Opioid dependence: Plan: oxycodone 15mg q4h prn chronic back/neck pain PDMP shows chronic prescriptions for oxy 10's just recently his dose was increased to 15mg tabs cont cautious use of oxycodone in the midst of his respiratory illness (13) Acute metabolic encephalopathy: Plan: multifactorial - influenza infection, left-sided pneumonia, hypercapnia, hypoxia, meds for sedation for bronch earlier today, etc supportive care treat flu treat pneumonia BIPAP if distress worsens keep O2 sats 90-92% (14) Hypophosphatemia: Plan: mild cont K-Phos 1 cap qid repeat level am (15) Acid reflux: Plan: takes pepcid daily at home having frequent reflux symptoms cont PPI added carafate qid cont usual pepcid 20mg daily CT chest yesterday showed esophageal wall thickening which is suggested of esophagitis (16) DVT prophylaxis: Plan: hold chemical DVT prophylaxis for now given bronch today if no bleeding issues, etc add heparin SC tomorrow Plan left message for pt's son, Jules, on his voicemail 06/30/23 patient remains very ill and at high risk of worsening illness and need for ICU, intubation/mech ventilation, etc Admission and Anticipated Discharge Date Admission Date: June 29, 2023 Subjective patient underwent bronchoscopy earlier today had large mucous plug in the left bronchial tree - removed by Dr Capps typical cultures, etc taken airways were quite friable per nursing he was still tachypneic throughout the day even despite removing the large mucous plug via bronch he was also very confused throughout the day patient reports ongoing cough and congestion admits to dyspnea no chest pain heartburn is improved - he specifically references the sucralfate liquid Review of Systems Review of Systems: gen - no fevers cv - no chest pain pulm - cough, congestion - feels "a little better" since the bronch GI - no vomiting, no abd pain Physical Exam Physical Exam: gen - more awake/alert in comparison to yesterday but very confused; still quite tachypneic with retractions mouth - MM more moist today neck - mild JVD today heart - tachy, s1 s2, no obvious murmur lungs - decreased BS left lung - maybe scantly better than yesterday; rales - diffuse - on right; increased work of breathing - retractions, tachypnea remain abd - soft NT ND BS+ ext - no edema, pulses 2+ b/l psych - confused Results & Data Results & Data Vital Signs (Past 12 Hours) Vital Signs Temp Pulse Pulse Resp BP BP Pulse Ox 07/01/23 20:01 94 H 18 92 07/01/23 19:17 36.6 C 109 H 20 163/108 H 93 07/01/23 18:54 114 H 07/01/23 18:33 36.8 C 106 H 22 177/100 H 91 07/01/23 18:05 101 H 40 H 91 07/01/23 16:32 82 07/01/23 16:31 90 30 H 157/99 H 95 07/01/23 15:02 78 18 94 07/01/23 15:00 07/01/23 13:15 89 18 170/119 H 94 07/01/23 13:00 99 H 18 148/104 H 96 07/01/23 12:45 99 H 18 159/99 H 97 07/01/23 12:35 100 H 18 167/105 H 92 07/01/23 12:30 111 H 20 162/102 H 94 07/01/23 12:25 99 H 20 166/104 H 99 07/01/23 12:15 07/01/23 12:15 100 H 20 155/109 H 98 07/01/23 12:10 98 H 20 154/99 H 98 07/01/23 11:25 84 20 162/125 H 94 07/01/23 09:00 99 H 30 H 96 07/01/23 09:00 129/78 O2 Del Method O2 Flow Rate 07/01/23 20:01 Nasal Cannula 6 07/01/23 19:17 Nasal Cannula 6 07/01/23 18:54 07/01/23 18:33 Nasal Cannula 6 07/01/23 18:05 Nasal Cannula 4 07/01/23 16:32 07/01/23 16:31 Nasal Cannula 5 07/01/23 15:02 Nasal Cannula 6 07/01/23 15:00 Nasal Cannula 4 07/01/23 13:15 Room Air 6 07/01/23 13:00 Room Air 6 07/01/23 12:45 Room Air 6 07/01/23 12:35 Room Air, Nasal Cannula 6 07/01/23 12:30 High Flow Nasal Cannula 07/01/23 12:25 High Flow Nasal Cannula 07/01/23 12:15 Nasal Cannula 07/01/23 12:15 High Flow Nasal Cannula 07/01/23 12:10 High Flow Nasal Cannula 07/01/23 11:25 Nasal Cannula 4 07/01/23 09:00 Nasal Cannula 4 07/01/23 09:00 Laboratory Results Laboratory Results - last 24 hr 07/01/23 07/01/23 07/01/23 04:21 12:30 14:12 WBC 8.31 RBC 3.75 L Hgb 11.6 L Hct 35.5 L MCV 94.7 MCH 30.9 MCHC 32.7 RDW Std Deviation 44.2 RDW Coeff of Stephen 12.6 Plt Count 186 MPV 10.4 Sodium 141 Potassium 3.8 Chloride 106 Carbon Dioxide 25 Anion Gap 10 BUN 21 Creatinine 0.68 Est Cr Clr Drug Dosing 97.2 Est GFR ( Amer) 113.7 Est GFR (Non-Af Amer) 98.1 BUN/Creatinine Ratio 30.9 H Glucose 135 H Calcium 8.3 L Total Creatine Kinase 274 H Fluid Neutrophils % 94 Fluid Lymphocytes % 4 Fl Monocyt/Macrophag % 2 Fluid Comment Random Vancomycin 13.3 Coccidioid immitis DNA Pending Histo/Blasto PCR Result Pending Pneumocyst jirovecii PCR Pending Aspergillus Antigen Pending Diagnostic Findings Chest X-Ray 07/01/23 12:50 SINGLE VIEW CHEST CLINICAL HISTORY: Post bronchoscopy. FINDINGS: An AP, portable, upright chest radiograph is compared to study dated 07/01/2023 and correlated with chest CT dated 06/30/2023. The cardiomediastinal silhouette is obscured. There is atherosclerotic calcification of the thoracic aorta. There is elevation of the left hemidiaphragm with dense consolidation of the left lower lung. Mild consolidation is seen at the right lung base. This has increased from previous. There are at least small pleural effusions. No pneumothorax is identified. The skeletal structures are osteopenic. The bony thorax is grossly intact. Degenerative change and scoliosis is noted in the spine. Fusion hardware is noted in the lower cervical spine. IMPRESSION: 1. No pneumothorax is seen post procedure. 2. Bibasilar consolidation is again noted, left lung greater than right. Right basilar consolidation has modestly increased from previous. 3. There are at least small pleural effusions. ACT 112: Negative or not required by law. Electronically signed by: Nathaniel Pleitez M.D. 07/01/2023 2:56 PM PG Care Time/CCT Total # of Minutes Spent Total Time Spent with Patient: Total time spent is greater than 50% in coordination of care (as documented) at patient's floor/unit and/or counseling patient: Coding Level of Care Code 59514 SUB INP/OBS CARE 3/50MIN Diagnoses Acute on chronic respiratory failure with hypoxia and hypercapnia J96.21; J96.22 Pneumonia J18.9 Laterality: unspecified laterality Lung location: unspecified part of lung Pneumonia type: due to unspecified organism Influenza due to identified 2008 H1N1 influenza virus with pneumonia J10.00 Sepsis A41.9 Sepsis acute organ dysfunction status: unspecified Sepsis type: sepsis due to unspecified organism Vocal cord paralysis J38.00 Positive blood culture R78.81 Chronically elevated hemidiaphragm J98.6 Chronic obstructive pulmonary disease, unspecified COPD type J44.9 COPD type: unspecified COPD Primary hypertension I10 Hypertension type: primary hypertension Myelopathy concurrent with and due to spinal stenosis of cervical region M48.02; G99.2 Depression F32.0 Active/Remission status: currently active Depression Type: major depressive disorder Major depression episode severity: mild Major depression recurrence: single episode Opioid dependence F11.20 Acute metabolic encephalopathy G93.41 Hypophosphatemia E83.39 Acid reflux K21.9 DVT prophylaxis Z29.9 (2) Pneumonia Laterality: unspecified laterality Lung location: unspecified part of lung Pneumonia type: due to unspecified organism Qualified Code(s): J18.9 - Pneumonia, unspecified organism (4) Sepsis Sepsis acute organ dysfunction status: unspecified Sepsis type: sepsis due to unspecified organism Qualified Code(s): A41.9 - Sepsis, unspecified organism (8) COPD (chronic obstructive pulmonary disease) COPD type: unspecified COPD Qualified Code(s): J44.9 - Chronic obstructive pulmonary disease, unspecified (9) Hypertension Hypertension type: primary hypertension Qualified Code(s): I10 - Essential (primary) hypertension (11) Depression Active/Remission status: currently active Depression Type: major depressive disorder Major depression episode severity: mild Major depression recurrence: single episode Qualified Code(s): F32.0 - Major depressive disorder, single episode, mild
[2023-07-01] MEDS: DOXYCYCLINE HYCLATE 100 MG in DEXTROSE 5% MINI-B 100 ML IV SCH (22:16)
[2023-07-02] MEDS: LORazepam 0.5 MG TAB PO SCH ×4 (02:40→21:06)
[2023-07-02] MEDS: PIPERACILLIN/TAZOBACTAM 4.5 GM in DEXTROSE 5% MINI-B 100 ML IV SCH ×3 (03:32→20:56)
[2023-07-02] MEDS: oxyCODONE HCL IR 5 MG TAB (IMMEDIATE RELEASE) PO PRN ×4 (03:35→18:34)
[2023-07-02] MEDS: VANCOMYCIN HCL 750 MG in SODIUM CHLORIDE 0.9% 250 ML IV SCH ×3 (06:08→23:45)
[2023-07-02] MEDS: methylPREDNISolone 40 MG in SYRINGE 0 ML IV SCH ×3 (06:08→23:45)
[2023-07-02] MEDS: SODIUM CHLOR 7% 4 ML NEB NEB SCH ×2 (07:18→20:11)
[2023-07-02] MEDS: ALBUT/IPRATROP 3MG/0.5MG NEB 3 ML VIAL NEB SCH ×4 (07:18→20:03)
[2023-07-02] MEDS: ACETAMINOPHEN 500 MG TAB PO SCH ×3 (08:03→20:55)
[2023-07-02] MEDS: DOCUSATE SODIUM 100 MG CAP PO SCH ×2 (08:04→20:55)
[2023-07-02] MEDS: POT PHOSPHATE MONOBASIC W/ SOD TAB PO SCH ×4 (08:04→20:54)
[2023-07-02] MEDS: DOCUSATE SODIUM/SENNA 50/8.6MG TAB PO SCH ×2 (08:04→20:55)
[2023-07-02] MEDS: GABAPENTIN 800 MG TAB PO SCH ×3 (08:04→20:54)
[2023-07-02] MEDS: busPIRone 15 MG TAB PO SCH ×2 (08:05→20:54)
[2023-07-02] MEDS: OSELTAMIVIR PHOSPHATE 75 MG CAP PO SCH ×2 (08:05→20:52)
[2023-07-02] MEDS: guaiFENesin 600 MG TABCR PO SCH ×2 (08:05→20:53)
[2023-07-02] MEDS: CALCIUM 600MG + VIT D 400 IU TAB PO SCH ×2 (08:05→20:54)
[2023-07-02] MEDS: GABAPENTIN 100 MG CAP PO SCH ×3 (08:05→20:53)
[2023-07-02] MEDS: THIAMINE HCL 100 MG TAB PO SCH (08:06)
[2023-07-02] MEDS: SUCRALFATE 1 GM/10 ML UDC PO SCH ×4 (08:06→20:58)
[2023-07-02] MEDS: buPROPion XL 150 MG TABCR PO SCH (08:06)
[2023-07-02] MEDS: FAMOTIDINE 20 MG TAB PO SCH (08:06)
[2023-07-02] MEDS: FORMOTEROL 20 MCG/2 ML VIAL NEB SCH ×2 (08:46→20:03)
[2023-07-02 09:01] LABS: iSTAT Arterial Blood Gas HCO3 31 meg/L (19-24); iSTAT Arterial Blood Gas pCO2 64 mmHg (35-46); iSTAT Arterial Blood Gas pO2 71 mmHg (80-95); iSTAT Carbon Dioxide 33 mmol/L (24-31); iSTAT Hematocrit 32 % (42-52); iSTAT Hemoglobin 10.9 g/dl (14.0-18.0); iSTAT Potassium 3.7 mmol/L (3.3-5.0); iSTAT Sodium 142 mmol/L (135-144)
--- NOTE | 2023-07-02 09:12 | Pulmonology Progress Note ---
Date of Service July 02, 2023 Assessment & Plan (1) Pneumonia: Laterality: unspecified laterality Lung location: unspecified part of lung Pneumonia type: due to unspecified organism Qualified Code(s): J18.9 - Pneumonia, unspecified organism (2) Acute on chronic respiratory failure with hypoxia and hypercapnia: (3) Influenza due to identified 2009 H1N1 influenza virus with pneumonia: (4) Chronic pulmonary aspiration: (5) Vocal cord weakness: (6) Chronically elevated hemidiaphragm: Plan IMPRESSION: 67-year-old male with significant past medical history of chronic hypoxic respiratory failure, chronic hypercapnic respiratory failure, chronic aspiration events, elevated LEFT-sided hemidiaphragm, vocal cord dysfunction, and acute influenza infection who presented in acute on chronic hypoxic respiratory failure with hypercapnia. RECOMMENDATIONS: 1. Pneumonia - Dense LEFT-sided infiltrative changes noted on chest x-ray with mucous plugging noted on CT and bronchoscopy. The patient did have mucous plug suctioned during bronchoscopy procedure yesterday. His airway was found to be relatively friable as well. He had been doing well post intervention, however overnight, the patient had increasing oxygen requirements and appears somewhat somnolent at bedside today. He is able to answer questions, but appears more drowsy today. We will order an ABG and placed the patient back on his BiPAP settings. In the event that he does not improve, the patient will likely warrant the patient and repeat bronchoscopy procedure for ongoing airway clearance. Continue with broad spectrum antibiotics for now until bronch cultures available. Continue to cover anerobes for likely lindsey aspiration. Continue with pulmonary toileting as well. 2. Acute on chronic hypoxic respiratory failure with hypercapnia - This had been appreciated and documented in the past. The patient's chronically elevated serum CO2 lends itself to the patient's history of elevated hemidiaphragm and poor ventilatory function. Patient ideally would benefit from positive pressure bilevel ventilation techniques moving forward, however it appears as though the patient has not been consistent with this in the past. This again does not appear to be as much of an acute issue as more of an acute on chronic presentation in a patient who is ill from acute influenza infection. 3. Influenza infection - Continue with supportive care. Pulmonary toileting as above. 4. Chronic pulmonary aspiration - Had been noted within the last 3 years. 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 5. Vocal cord weakness - Likely contributes to the patient's aspiration. Has been evaluated for this in the past by ENT. 6. Chronically elevated hemidiaphragm (LEFT) - Likely resulting in restrictive physiology noted on pulmonary function testing performed on 04/19/2021. Findings consistent with an FVC of 1.57 L or 38% predicted, FEV1 of 1.31 L or 40% predicted, and a ratio of 84%. Moderately decreased DLCO at 44% at that time. His spirometry was also noted to be worse in the supine position versus upright. Patient would benefit from bilevel ventilation moving forward to aid in ventilatory function in a patient with a likely paralyzed LEFT-sided hemidiaphragm. I do not see the utility in continuing with evaluation for this as he has seen thoracic surgery in the past and did not seem to be a surgical candidate. Thank you for allowing us to participate in the care of this pleasant patient. We will be happy to follow along the inpatient side. Admission and Anticipated Discharge Date Admission Date: June 29, 2023 Subjective Patient was seen and evaluated at bedside. He appears more lethargic today. Overnight events were noted. The patient had escalating oxygen requirements. He refused to utilize his BiPAP machine. He is currently saturating in the mid 90s on 15 L OxyMask. Physical Exam Physical Exam: VITAL SIGNS - Vital signs and nursing notes were reviewed. GENERAL - 67-year-old male appearing his stated age who is in mild respiratory distress. LUNGS - Tachypnea. Auscultation reveals diminished breath sounds on the LEFT. Coarse breath sounds on the LEFT. No rales or rhonchi appreciated. CARDIAC - RRR with S1/S2. No murmur, rubs, or gallops appreciated. ABDOMEN - BS normoactive all four quadrants. No tenderness, palpable masses, or ascites noted. PSYCH - Somnolent. Results & Data Results & Data Vital Signs (Past 12 Hours) Vital Signs Temp Pulse Pulse Pulse Resp BP Pulse Ox 07/02/23 08:57 81 20 93 07/02/23 08:48 84 19 92 07/02/23 07:19 85 20 91 07/02/23 04:30 105 H 30 H 151/92 H 91 07/02/23 03:34 36.9 C 106 H 18 143/94 H 94 07/02/23 03:25 84 07/02/23 03:24 84 20 94 07/02/23 00:00 91 H 07/01/23 23:55 85 26 H 91 07/01/23 22:36 37.0 C 118 H 20 152/95 H 91 07/01/23 22:25 95 H Pulse Ox O2 Del Method O2 Del Method O2 Flow Rate O2 Flow Rate FiO2 FiO2 07/02/23 08:57 70 07/02/23 08:48 Oxymask 15 07/02/23 07:19 Oxymask 9 07/02/23 04:30 BiPAP 75 07/02/23 03:34 BiPAP 07/02/23 03:25 94 BiPAP 70 07/02/23 03:24 70 07/02/23 00:00 07/01/23 23:55 70 07/01/23 22:36 Nasal Cannula 5 07/01/23 22:25 91 Nasal Cannula 5 PG Care Time/CCT Total # of Minutes Spent Total Time Spent with Patient: Total time spent is greater than 50% in coordination of care (as documented) at patient's floor/unit and/or counseling patient: Coding Level of Care Code 67032 SUB INP/OBS CARE 2/35MIN Diagnoses Pneumonia J18.9 Laterality: unspecified laterality Lung location: unspecified part of lung Pneumonia type: due to unspecified organism Acute on chronic respiratory failure with hypoxia and hypercapnia J96.21; J96.22 Influenza due to identified 2009 H1N1 influenza virus with pneumonia J10.00 Chronic pulmonary aspiration T17.908A Vocal cord weakness J38.00 Chronically elevated hemidiaphragm J98.6
--- NOTE | 2023-07-02 09:13 | XRay Report ---
SINGLE VIEW CHEST CLINICAL HISTORY: Hypoxia. FINDINGS: 2 AP, portable, upright chest radiographs are compared to study dated 07/01/2023 and correlat ed with chest CT dated 06/30/2023. The examination is degraded by portable technique and patient rotati on. The cardiomediastinal silhouette is obscured. There is atherosclerotic calcification of the thora cic aorta. There is elevation of the left hemidiaphragm with dense consolidation throughout the left lung. Consolidation at the left apex appears increased from previous. Right basilar consolidation is unchanged. There are at least small pleural effusions. No pneumothorax is identified. The skeletal st ructures are osteopenic. The bony thorax is grossly intact. Degenerative change and scoliosis is note d in the spine. Fusion hardware is noted in the lower cervical spine. IMPRESSION: 1. Airspace consolidation is again seen throughout the left lung. This appears modestly increased at the left apex as compared to yesterday. 2. Right basilar consolidation is unchanged. 3. There are at least small pleural effusions. ACT 112: Negative or not required by law. Electronically signed by: Nathaniel Pleitez M.D. 07/02/2023 9:12 AM
[2023-07-02 09:44] LABS: BUN Creatinine Ratio 41.3 (10-20); Calcium 8.1 mg/dl (8.6-10.3); Creatinine Clr Calc Pharmacy 103.7 ml/min; Est GFR (African American) 117.4 ml/min; Est GFR (Non-African American) 101.3 ml/min; Magnesium 2.3 mg/dl (1.7-2.4); Phosphorus 1.7 mg/dl (2.5-4.9); Potassium 3.8 mmol/L (3.5-5.1)
[2023-07-02] MEDS ORDERED: FUROSEMIDE INJ 20 MG/2 ML VIAL IV ONE ×2 (10:21→16:54)
[2023-07-02] MEDS: DOXYCYCLINE HYCLATE 100 MG in DEXTROSE 5% MINI-B 100 ML IV SCH ×2 (10:52→21:00)
--- NOTE | 2023-07-02 13:11 | Hospitalist Progress Note ---
Date of Service July 02, 2023 Assessment & Plan (1) Acute on chronic respiratory failure with hypoxia and hypercapnia: Plan: acute component 2nd to fluA infection, b/l pneumonia left > right, COPD with exacerbation, pulmonary edema. chronic component - COPD, left-sided hemidiaphragm elevation, etc up until about 6 months ago (per patient) he was on NC O2 2.5 L continuously uncertain why it was stopped keep O2 sats 90-92% on supplemental O2 - blend with BIPAP. 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 (see #6 below) (5) Vocal cord paralysis: Plan: history of such per records risk factor for aspiration reason for vocal cord paralysis? prior c-spine surgery? other? too sick for video swallow (6) Positive blood culture: Plan: coag neg staph 2 out of 8 bottles + for such likely contaminant if repeat blood cx's remain negative thru tomorrow this would support contamination continue IV vancomycin for now if cultures from bronch do not grow MRSA and if [employer] MAINTENANCE in blood felt to be contaminant stop the vanco (7) Chronically elevated hemidiaphragm: Plan: left-side etiology uncertain present for several years has seen [facility]m for this - no Rx recommended during the last office visit in 2020 (8) COPD (chronic obstructive pulmonary disease): Plan: with exacerbation chronic prednisone use - 5mg QOD - for COPD? for #9? outpatient records suggest it is for chronic pain either way - cont steroids in the form of solumedrol 40mg IV q8h cont nebs pulmonary consult appreciated (9) Hypertension: Plan: not on meds for such follow BPs (10) Myelopathy concurrent with and due to spinal stenosis of cervical region: Plan: severe 04/2020 - extensive c-spine surgery by Dr Álvarez outpatient pulmonary note from 2020 suggests that some of his vocal cord pa ralysis +/- hemidiaphragm elevation could be from prior surgery vs the c-spine disease itself (11) Depression: Plan: cont all home meds (12) Opioid dependence: Plan: oxycodone 15mg q4h prn chronic back/neck pain PDMP shows chronic prescriptions for oxy 10's just recently his dose was increased to 15mg tabs cont cautious use of morphine IV in the midst of his respiratory illness (can't take oxy readily due to BIPAP, etc) (13) Acute metabolic encephalopathy: Plan: multifactorial - influenza infection, left-sided pneumonia, hypercapnia, hypoxia, meds for sedation for bronch earlier today, etc supportive care treat flu treat pneumonia BIPAP if distress worsens keep O2 sats 90-92% mental status better this afternoon after BIPAP for several hours suggesting hypercapnia playing big role (14) Hypophosphatemia: Plan: mild cont K-Phos 1 cap qid repeat level am (15) Acid reflux: Plan: takes pepcid daily at home having frequent reflux symptoms cont PPI cont carafate qid cont usual pepcid 20mg daily CT chest showed esophageal wall thickening which is suggested of esophagitis (16) DVT prophylaxis: Plan: resume lovenox daily Plan left message for pt's son, Jules, on his voicemail 06/30/23 spoke with Jules directly today by phone - lengthy update given patient remains very ill and at high risk of worsening illness and need for ICU, intubation/mech ventilation, etc Admission and Anticipated Discharge Date Admission Date: June 29, 2023 Subjective events of last 24 hours noted remains very ill with high respiratory support requirements this am was lethargic when pulmonary saw him placed on BIPAP I checked on him 2x's today first was AM rounds he was tolerating BIPAP it was hard to communicate with him because of the BIPAP he did confirm the BIPAP improved his dyspnea but he "wants to eat" and "wants pain medication" later in the day I checked on him again and he was still on BIPAP but upset he was still on it Review of Systems Review of Systems: cv - denies cp pulm - ongoing dyspnea and cough with sputum GI - no pain Physical Exam Physical Exam: gen - BIPAP in place, retractions, awake and talking however neck - mild JVD improved today heart - tachy, s1 s2, no obvious murmur lungs - decreased BS left lung - same as yesterday; rales on right modestly improved; increased work of breathing - retractions, tachypnea - maybe slightly better on BIPAP abd - soft NT ND BS+ ext - no edema, pulses 2+ b/l Results & Data Results & Data Vital Signs (Past 12 Hours) Vital Signs Temp Pulse Pulse Pulse Resp BP Pulse Ox 07/02/23 12:05 37.0 C 83 18 160/80 H 92 07/02/23 11:29 89 19 93 07/02/23 11:19 60 19 91 07/02/23 08:57 81 20 93 07/02/23 08:48 84 19 92 07/02/23 07:19 85 20 91 07/02/23 04:30 105 H 30 H 151/92 H 91 07/02/23 03:34 36.9 C 106 H 18 143/94 H 94 07/02/23 03:25 84 07/02/23 03:24 84 20 94 Pulse Ox O2 Del Method O2 Del Method O2 Flow Rate FiO2 FiO2 07/02/23 12:05 BiPAP 07/02/23 11:29 55 07/02/23 11:19 BiPAP 55 07/02/23 08:57 70 07/02/23 08:48 Oxymask 15 07/02/23 07:19 Oxymask 9 07/02/23 04:30 BiPAP 75 07/02/23 03:34 BiPAP 07/02/23 03:25 94 BiPAP 70 07/02/23 03:24 70 Laboratory Results Laboratory Results - last 24 hr 07/01/23 07/01/23 07/02/23 12:30 14:12 08:46 POC Hgb 10.9 L POC Hct 32 L POC pH 7.30 L POC pCO2 64 H POC pO2 71 L POC HCO3 31 H POC Total CO2 33 H POC Base Excess 5.0 H POC ABG O2 Sat 92.0 POC Sodium 142 Sodium POC Potassium 3.7 Potassium Chloride Carbon Dioxide Anion Gap BUN Creatinine Est Cr Clr Drug Dosing Est GFR ( Amer) Est GFR (Non-Af Amer) BUN/Creatinine Ratio Glucose Calcium Phosphorus Magnesium Fluid Neutrophils % 94 Fluid Lymphocytes % 4 Fl Monocyt/Macrophag % 2 Random Vancomycin 13.3 07/02/23 08:52 POC Hgb POC Hct POC pH POC pCO2 POC pO2 POC HCO3 POC Total CO2 POC Base Excess POC ABG O2 Sat POC Sodium Sodium 143 POC Potassium Potassium 3.8 Chloride 103 Carbon Dioxide 31 Anion Gap 9 BUN 26 H Creatinine 0.63 Est Cr Clr Drug Dosing 103.7 Est GFR ( Amer) 117.4 Est GFR (Non-Af Amer) 101.3 BUN/Creatinine Ratio 41.3 H Glucose 131 H Calcium 8.1 L Phosphorus 1.7 L Magnesium 2.3 Fluid Neutrophils % Fluid Lymphocytes % Fl Monocyt/Macrophag % Random Vancomycin PG Care Time/CCT Total # of Minutes Spent Total Time Spent with Patient: Total time spent is greater than 50% in coordination of care (as documented) at patient's floor/unit and/or counseling patient: Coding Level of Care Code 05282 SUB INP/OBS CARE 3/50MIN Diagnoses Acute on chronic respiratory failure with hypoxia and hypercapnia J96.21; J96.22 Pneumonia J18.9 Laterality: unspecified laterality Lung location: unspecified part of lung Pneumonia type: due to unspecified organism Influenza due to identified 2008 H1N1 influenza virus with pneumonia J10.00 Sepsis A41.9 Sepsis acute organ dysfunction status: unspecified Sepsis type: sepsis due to unspecified organism Vocal cord paralysis J38.00 Positive blood culture R78.81 Chronically elevated hemidiaphragm J98.6 Chronic obstructive pulmonary disease, unspecified COPD type J44.9 COPD type: unspecified COPD Primary hypertension I10 Hypertension type: primary hypertension Myelopathy concurrent with and due to spinal stenosis of cervical region M48.02; G99.2 Depression F32.0 Active/Remission status: currently active Depression Type: major depressive disorder Major depression episode severity: mild Major depression recurrence: single episode Opioid dependence F11.20 Acute metabolic encephalopathy G93.41 Hypophosphatemia E83.39 Acid reflux K21.9 DVT prophylaxis Z29.9 (2) Pneumonia Laterality: unspecified laterality Lung location: unspecified part of lung Pneumonia type: due to unspecified organism Qualified Code(s): J18.9 - Pneumonia, unspecified organism (4) Sepsis Sepsis acute organ dysfunction status: unspecified Sepsis type: sepsis due to unspecified organism Qualified Code(s): A41.9 - Sepsis, unspecified organism (8) COPD (chronic obstructive pulmonary disease) COPD type: unspecified COPD Qualified Code(s): J44.9 - Chronic obstructive pulmonary disease, unspecified (9) Hypertension Hypertension type: primary hypertension Qualified Code(s): I10 - Essential (primary) hypertension (11) Depression Active/Remission status: currently active Depression Type: major depressive disorder Major depression episode severity: mild Major depression recurrence: single episode Qualified Code(s): F32.0 - Major depressive disorder, single episode, mild
--- NOTE | 2023-07-02 13:20 | XCELERA ---
[id number]
--- NOTE | 2023-07-02 13:35 | Electrocardiogram Report ---
Test Reason : Blood Pressure : / mmHG Vent. Rate : 097 BPM Atrial Rate : 097 BPM P-R Int : 140 ms QRS Dur : 090 ms QT Int : 324 ms P-R-T Axes : 059 031 063 degrees QTc Int : 411 ms Normal sinus rhythm Normal ECG When compared with ECG of 29-JUN-2023 18:12, No significant change was found Confirmed by Henry Almanza ([id number]) on 07/02/2023 1:35:22 PM Referred By: REFERRED SELF Confirmed By:Henry Almanza
[2023-07-02] MEDS ORDERED: POTASSIUM CHLORIDE CRTAB 20 MEQ TABCR PO STA (16:54)
--- NOTE | 2023-07-02 17:01 | XRay Report ---
XR chest 1V portable HISTORY: Shortness of breath. Follow-up. COMPARISON: Chest 07/02/2023. FINDINGS: No pneumothorax. Scoliosis again noted. Slightly rotated study. The heart remains enlarged. Slight improved aeration within the left lung apex. Otherwise, left lung consolidation persists. Pat elvia densities at the right lung base persist. Cervical spinal fusion hardware again noted. Suspect sm all bilateral pleural effusions. IMPRESSION: 1. Left lung consolidation again noted which has slightly improved at the left lung apex. 2. Right basilar densities persist. 2. Suspect small bilateral pleural effusions. ACT 112: Negative or not required by law. Electronically signed by: Cash Santoro M.D. 07/02/2023 5:00 PM
[2023-07-02] MEDS: MoRPHine SULFATE 2 MG/ML CARP IV PRN ×2 (17:10→21:06)
[2023-07-02] MEDS: ENOXAPARIN INJ 40 MG/0.4 ML SYR SQ SCH (19:17)
[2023-07-02] MEDS: PANTOprazole 40 MG in SYRINGE 0 ML IV SCH ×2 (19:17→23:45)
[2023-07-02] MEDS: MIRTAZAPINE TAB 15 MG TAB PO SCH (20:52)
[2023-07-02] MEDS: ATORVASTATIN 10 MG TAB PO SCH (20:54)
[2023-07-02] MEDS: MELATONIN 3 MG TAB PO SCH (20:55)
[2023-07-03] MEDS: MoRPHine SULFATE 2 MG/ML CARP IV PRN ×3 (03:12→21:01)
[2023-07-03] MEDS: oxyCODONE HCL IR 5 MG TAB (IMMEDIATE RELEASE) PO PRN ×5 (03:12→20:45)
[2023-07-03] MEDS: LORazepam 0.5 MG TAB PO SCH ×4 (03:12→20:45)
[2023-07-03] MEDS: PIPERACILLIN/TAZOBACTAM 4.5 GM in DEXTROSE 5% MINI-B 100 ML IV SCH ×3 (03:13→20:46)
[2023-07-03] MEDS ORDERED: VANCOMYCIN LEVEL ONE (06:30)
[2023-07-03 07:22] LABS: Calcium 7.7 mg/dl (8.6-10.3); Magnesium 2.2 mg/dl (1.7-2.4); Potassium 3.7 mmol/L (3.5-5.1)
[2023-07-03 07:23] LABS: Hematocrit (blood only) 35.1 % (42.0-52.0); Hemoglobin 11.6 g/dl (14.0-18.0); Mean Corpuscular Hemoglobin 31.4 pg (25.0-34.0); Mean Corpuscular Volume 94.9 fL (80.0-100.0); Mean Platelet Volume 10.5 fL (9.4-12.4); Platelet Count 273 K/uL (130-400); RDW Coefficient of Variation 12.8 % (11.5-14.5); RDW Standard Deviation 44.2 fL (36.4-46.3); White Blood Count 8.67 K/ul (4.8-10.8)
[2023-07-03 07:27] LABS: Creatinine Clr Calc Pharmacy 108.4 ml/min; Est GFR (African American) 118.9 ml/min; Est GFR (Non-African American) 102.6 ml/min
[2023-07-03] MEDS: ALBUT/IPRATROP 3MG/0.5MG NEB 3 ML VIAL NEB SCH (07:34)
[2023-07-03] MEDS: FORMOTEROL 20 MCG/2 ML VIAL NEB SCH ×2 (07:34→20:07)
[2023-07-03] MEDS: SODIUM CHLOR 7% 4 ML NEB NEB SCH ×2 (07:34→20:13)
[2023-07-03] MEDS ORDERED: FUROSEMIDE INJ 20 MG/2 ML VIAL IV ONE (07:58)
[2023-07-03] MEDS ORDERED: FUROSEMIDE INJ 20 MG/2 ML VIAL IV SCH (07:58)
[2023-07-03] MEDS: VANCOMYCIN HCL 750 MG in SODIUM CHLORIDE 0.9% 250 ML IV SCH (08:14)
[2023-07-03] MEDS: methylPREDNISolone 40 MG in SYRINGE 0 ML IV SCH ×3 (08:14→21:17)
[2023-07-03] MEDS ORDERED: POTASSIUM CHLORIDE CRTAB 20 MEQ TABCR PO SCH (09:00)
[2023-07-03] MEDS: SUCRALFATE 1 GM/10 ML UDC PO SCH ×4 (10:04→20:46)
[2023-07-03] MEDS: POT PHOSPHATE MONOBASIC W/ SOD TAB PO SCH ×4 (10:05→20:48)
[2023-07-03] MEDS: PANTOprazole 40 MG in SYRINGE 0 ML IV SCH ×2 (10:05→20:47)
[2023-07-03] MEDS: busPIRone 15 MG TAB PO SCH ×2 (10:06→20:51)
[2023-07-03] MEDS: OSELTAMIVIR PHOSPHATE 75 MG CAP PO SCH ×2 (10:06→20:50)
[2023-07-03] MEDS: CALCIUM 600MG + VIT D 400 IU TAB PO SCH ×2 (10:07→20:52)
[2023-07-03] MEDS: GABAPENTIN 800 MG TAB PO SCH ×3 (10:07→20:48)
[2023-07-03] MEDS: GABAPENTIN 100 MG CAP PO SCH ×3 (10:07→20:49)
[2023-07-03] MEDS: guaiFENesin 600 MG TABCR PO SCH ×2 (10:08→20:51)
[2023-07-03] MEDS: ENOXAPARIN INJ 40 MG/0.4 ML SYR SQ SCH (10:09)
[2023-07-03] MEDS: buPROPion XL 150 MG TABCR PO SCH (10:09)
[2023-07-03] MEDS: FAMOTIDINE 20 MG TAB PO SCH (10:09)
[2023-07-03] MEDS: THIAMINE HCL 100 MG TAB PO SCH (10:10)
[2023-07-03] MEDS: DOXYCYCLINE HYCLATE 100 MG in DEXTROSE 5% MINI-B 100 ML IV SCH ×2 (10:11→21:13)
[2023-07-03] MEDS: ACETAMINOPHEN 500 MG TAB PO SCH ×3 (10:18→21:01)
[2023-07-03] MEDS: DOCUSATE SODIUM 100 MG CAP PO SCH ×2 (10:18→20:54)
[2023-07-03] MEDS: DOCUSATE SODIUM/SENNA 50/8.6MG TAB PO SCH ×2 (10:18→20:54)
--- NOTE | 2023-07-03 10:24 | Pulmonology Progress Note ---
Date of Service July 03, 2023 Assessment & Plan (1) Pneumonia: Laterality: unspecified laterality Lung location: unspecified part of lung Pneumonia type: due to unspecified organism Qualified Code(s): J18.9 - Pneumonia, unspecified organism (2) Acute on chronic respiratory failure with hypoxia and hypercapnia: (3) Influenza due to identified 2009 H1N1 influenza virus with pneumonia: (4) Chronic pulmonary aspiration: (5) Vocal cord weakness: (6) Chronically elevated hemidiaphragm: Plan IMPRESSION: 67-year-old male with significant past medical history of chronic hypoxic respiratory failure, chronic hypercapnic respiratory failure, chronic aspiration events, elevated LEFT-sided hemidiaphragm, vocal cord dysfunction, and acute influenza infection who presented in acute on chronic hypoxic respiratory failure with hypercapnia. RECOMMENDATIONS: 1. Pneumonia - Dense LEFT-sided infiltrative changes noted on chest x-ray with mucous plugging noted on CT and bronchoscopy. His airway was found to be relatively friable as well with mucous plugging. He has required escalating oxygen, however this has improved throughout the night. Follow-up chest x-ray did show some improved aeration of the lung. Continue to titrate down oxygen requirement as tolerated. Continue with broad spectrum antibiotics for now until bronch cultures available. Continue to cover anerobes for likely lindsey aspiration. Continue with pulmonary toileting as well. 2. Acute on chronic hypoxic respiratory failure with hypercapnia - This had been appreciated and documented in the past. The patient's chronically elevated serum CO2 lends itself to the patient's history of elevated hemidiaphragm and poor ventilatory function. Patient ideally would benefit from positive pressure bilevel ventilation techniques moving forward, however it appears as though the patient has not been consistent with this in the past. This again does not appear to be as much of an acute issue as more of an acute on chronic presentation in a patient who is ill from acute influenza infection. 3. Influenza infection - Continue with supportive care. Pulmonary toileting as above. 4. Chronic pulmonary aspiration - Had been noted within the last 3 years. Patient would benefit from [employer] evaluation and management. 5. Vocal cord weakness - Likely contributes to the patient's aspiration. Has been evaluated for this in the past by ENT. 6. Chronically elevated hemidiaphragm (LEFT) - Likely resulting in restrictive physiology noted on pulmonary function testing performed on 04/19/2021. Findings consistent with an FVC of 1.57 L or 38% predicted, FEV1 of 1.31 L or 40% predicted, and a ratio of 84%. Moderately decreased DLCO at 44% at that time. His spirometry was also noted to be worse in the supine position versus upright. Patient would benefit from bilevel ventilation moving forward to aid in ventilatory function in a patient with a likely paralyzed LEFT-sided hemidiaphragm. I do not see the utility in continuing with evaluation for this as he has seen thoracic surgery in the past and did not seem to be a surgical candidate. Thank you for allowing us to participate in the care of this pleasant patient. We will be happy to follow along the inpatient side. Admission and Anticipated Discharge Date Admission Date: June 29, 2023 Supervising Physician Co-Signing Physician Notes Patient with minimal improvement of cxr post bronchoscopy. Cultures and cytology negative thus far. Suspect patient with chronic aspiration. High likelihood that patient develops fibrosis of left lung. Recommend readdressing code status. Continue efforts at pulmonary as able. Wean o2 as able to keep sats above 90. Pulm is available to see prn. Otherwise no further recs at this time. Subjective Patient seen and evaluated at bedside. He is on high flow nasal cannula at this time. He fluctuated between high flow and BiPAP overnight. He does not like his BiPAP mask, but understands utility. He is bartering with me regarding medications for his pain and anxiety. Review of Systems Review of Systems: A complete 10 point review of systems was reviewed with the patient with pertinent positives and negatives as per history of present illness. All else were negative. Physical Exam Physical Exam: VITAL SIGNS - Vital signs and nursing notes were reviewed. GENERAL - 67-year-old male appearing his stated age who is in mild respiratory distress. LUNGS - Tachypnea. Auscultation reveals diminished breath sounds on the LEFT. Coarse breath sounds on the LEFT. No rales or rhonchi appreciated. CARDIAC - RRR with S1/S2. No murmur, rubs, or gallops appreciated. ABDOMEN - BS normoactive all four quadrants. No tenderness, palpable masses, or ascites noted. PSYCH - Somnolent. Results & Data Results & Data Vital Signs (Past 12 Hours) Vital Signs Temp Pulse Pulse Resp BP Pulse Ox O2 Del Method 07/03/23 08:15 37.1 C 75 22 169/91 H 95 High Flow Nasal Cannula 07/03/23 07:40 89 15 92 Free Flow/Blow-by 07/03/23 07:39 89 17 92 High Flow Nasal Cannula 07/03/23 03:16 36.5 C 88 20 151/88 H 95 CPAP 07/03/23 02:55 84 23 94 07/02/23 23:15 88 18 91 O2 Flow Rate FiO2 07/03/23 08:15 07/03/23 07:40 40 55 07/03/23 07:39 40 55 07/03/23 03:16 07/03/23 02:55 40 07/02/23 23:15 40 PG Care Time/CCT Total # of Minutes Spent Total Time Spent with Patient: Total time spent is greater than 50% in coordination of care (as documented) at patient's floor/unit and/or counseling patient: Coding Level of Care Code 58511 SUB INP/OBS CARE 2/35MIN Diagnoses Pneumonia J18.9 Laterality: unspecified laterality Lung location: unspecified part of lung Pneumonia type: due to unspecified organism Acute on chronic respiratory failure with hypoxia and hypercapnia J96.21; J96.22 Influenza due to identified 2009 H1N1 influenza virus with pneumonia J10.00 Chronic pulmonary aspiration T17.908A Vocal cord weakness J38.00 Chronically elevated hemidiaphragm J98.6
--- NOTE | 2023-07-03 13:27 | Pharmacy Report ---
Pharmacy PK ABX Note - Date of Service July 03, 2023 - Assessment and Plan Assessment 07/02/23: Vancomycin day 4: Reviewed vancomycin level, current regimen predicted to achieve goal AUC/LUCIO. Repeat blood cultures NG x48 hours. Patient not doing well clinically as of yesterday's progress note-- currently on HF NC, afebrile, WBC WNC. Bronch wash cultures maxwell albicans/dublinesis isolated, likely colonization. No MRSA isolated in bronch wash, ok to discontinue vancomycin per Dr. Townsend. 06/30/23: 67 year old M receiving Vancomycin and Zosyn for treatment of pneumonia and bacteremia. * Day #2 of antimicrobial therapy. * Labs/Vitals: Afebrile. No leukocytosis. SCr stable at 0.68. Procal was elevated at 0.96. * Micro: Influenza A positive. MRSA nasal swab negative. Admission blood cultures are growing Coagulase Negative Staphylococcus in one set (both bottles). Highly suspicious for contamination. Repeat blood cultures are still pending from yesterday. Patient underwent bronchoscopy today so bronch cultures are pending as well. Plan Vancomycin discontinued Zosyn * 4.5 g IV q8h - appropriately dosed, no change
--- NOTE | 2023-07-03 16:27 | XRay Report ---
SINGLE VIEW CHEST CLINICAL HISTORY: Dyspnea. FINDINGS: An AP, portable, upright chest radiograph is compared to study dated 07/02/2023 and correlate d with chest CT dated 06/30/2023. The examination is degraded by portable technique, apical lordotic po sitioning, and patient rotation. The cardiomediastinal silhouette is obscured. There is atherosclerot ic calcification of the thoracic aorta. There is elevation of the left hemidiaphragm with dense conso lidation in the left mid lower lung. Mild atelectasis is seen at the right lung base. Suspect small p leural effusions. No pneumothorax is identified. The skeletal structures are osteopenic. The bony tho rax is grossly intact. Degenerative change and scoliosis is noted in the spine. Fusion hardware is no aren in the lower cervical spine. IMPRESSION: 1. No significant change from yesterday. Airspace consolidation is again seen in the left mid to lowe r lung. 2. Atelectasis is noted at the right lung base. 3. Suspect small pleural effusions. ACT 112: Negative or not required by law. Electronically signed by: Nathaniel Pleitez M.D. 07/03/2023 4:26 PM
[2023-07-03] MEDS ORDERED: Nursing to Pharmacy Communication SCH (18:00)
[2023-07-03] MEDS: ATORVASTATIN 10 MG TAB PO SCH (20:49)
[2023-07-03] MEDS: MIRTAZAPINE TAB 15 MG TAB PO SCH (20:52)
[2023-07-03] MEDS: MELATONIN 3 MG TAB PO SCH (20:54)
--- NOTE | 2023-07-03 21:20 | Hospitalist Progress Note ---
Date of Service July 03, 2023 Assessment & Plan (1) Acute on chronic respiratory failure with hypoxia and hypercapnia: Plan: acute component 2nd to fluA infection, b/l pneumonia left (severe) > right, COPD with exacerbation, pulmonary edema. chronic component - COPD, left-sided hemidiaphragm elevation, etc up until about 6 months ago (per patient) he was on NC O2 2.5 L continuously uncertain why it was stopped keep O2 sats 90-92% on supplemental O2 - blend with BIPAP - or use HFNC. can alternate BIPAP with HFNC as tolerated suspected pulm edema - s/p lasix yesterday gave lasix again today FiO2 requirements have decreased in the last 24 hours (2) Pneumonia: Plan: DEANNA/LLL extensive, severe likely bacterial superinfection in the setting of fluA infection day #4 of broad-spectrum IV abx - remains on zosyn bronch cultures negative for MRSA or other resistant staph - stop IV vanco cont atypical coverage with doxy 100mg BID - day #3 s/p bronch 07/01/[address] Capps - large mucous plugging found in the left bronchial tree; plugs removed all bronch cultures negative to date - no specific bacterial pathogen identified appreciate pulmonary assistance continue HFNC or BIPAP, nebs, steroids, supportive care (3) Influenza due to identified 2008 H1N1 influenza virus with pneumonia: Plan: fluA infection tamiflu 75mg BID x 5 days day #4 today supportive care treat superimposed bacterial superinfection of left lung - see above (4) Sepsis: Plan: 2nd influenza A infection 2nd left-sided pneumonia (5) Vocal cord paralysis: Plan: history of such per records risk factor for aspiration reason for vocal cord paralysis? prior c-spine surgery? other? too sick for video swallow still speech following (6) Positive blood culture: Plan: coag neg staph 2 out of 8 bottles + for such likely contaminant can stop IV vancomycin (7) Chronically elevated hemidiaphragm: Plan: left-side etiology uncertain present for several years has seen [facility] Pulm for this as outaptient - no Rx recommended during the last office visit in 2020 (8) COPD (chronic obstructive pulmonary disease): Plan: with exacerbation but no wheezing and patient overall improved with less FiO2 requirements lower steroids to solumedrol 30mg IV BID and cont to wean over time chronic prednisone use - 5mg QOD - for COPD? for #9? outpatient records suggest it is for chronic pain cont nebs pulmonary consult appreciated (9) Hypertension: Plan: not on meds for such follow BPs for now defer on treating mildly high readings (10) Myelopathy concurrent with and due to spinal stenosis of cervical region: Plan: severe 04/2020 - extensive c-spine surgery by Dr Álvarez outpatient pulmonary note from 2020 suggests that some of his vocal cord paralysis +/- hemidiaphragm elevation could be from prior surgery vs the c-spine disease itself (11) Depression: Plan: cont all home meds (12) Opioid dependence: Plan: oxycodone 15mg q4h prn chronic back/neck pain PDMP shows chronic prescriptions for oxy 10's just recently his dose was increased to 15mg tabs cont cautious use of morphine IV or oxycodone in the midst of his respiratory illness (13) Acute metabolic encephalopathy: Plan: multifactorial - influenza infection, left-sided pneumonia, hypercapnia, hypoxia, meds for sedation for bronch earlier today, etc ongoing cont supportive care treat flu treat pneumonia treat elevated CO2 levels with BIPAP keep O2 sats 90-92% -- do not over-oxygenate (14) Hypophosphatemia: Plan: mild ongoing increase K-Phos to 2 cap qid (15) Acid reflux: Plan: takes pepcid daily at home having frequent reflux symptoms cont PPI BID cont carafate qid cont usual pepcid 20mg daily CT chest showed esophageal wall thickening which is suggestive of esophagitis if he continues to complain of GERD symptoms consider empiric Rx for candidiasis with diflucan given chronic prednisone use (is at risk of thrush and candidal esophagitis due to the chronic steroids) (16) DVT prophylaxis: Plan: lovenox daily Plan left message for pt's son, Julse, on his voicemail 06/30/23 spoke with Jules on 07/02/23 by phone - lengthy update given patient remains very ill and at high risk of worsening illness but does seem to have improved some over the last [address] a [address] to go PT/OT evals when medically able care d/w pulmonary team care d/w speech therapy Admission and Anticipated Discharge Date Admission Date: June 29, 2023 Subjective events of last 24 hours noted during my visit he was resting nearly flat in bed with HFNC in place 35 L and 35% FiO2 were the settings he was confused; he asked if he was being discharged tonight he asked for his chronic pain meds he voiced that he was hungry speech therapy saw him today and felt he was not ready for swallow eval or video swallow they will attempt bedside eval tomorrow if stable tele - sinus tach or NSR having bowel movements Review of Systems Review of Systems: gen - "I think I feel better" cv - no orthopnea, no chest pain pulm - ongoing cough, no blood; ongoing dyspnea GI - no abd pain, no N/V - but c/o ongoing heartburn symptoms Physical Exam Physical Exam: gen - confused, but looks better today; less distress, able to talk in complete sentences w/o getting dyspneic neck - JVD looks resolved heart - tachy, s1 s2, no obvious murmur lungs - decreased BS left lung - same as yesterday, maybe slightly better airation; rales on right improved - only heard at the base; increased work of breathing improved abd - soft NT ND BS+ ext - no edema, pulses 2+ b/l psych - confused Results & Data Results & Data Vital Signs (Past 12 Hours) Vital Signs Temp Pulse Pulse Resp BP Pulse Ox O2 Del Method 07/03/23 20:15 114 H 20 90 High Flow Nasal Cannula 07/03/23 20:08 114 H 20 90 High Flow Nasal Cannula 07/03/23 19:39 36.4 C L 101 H 22 177/117 H 88 L High Flow Nasal Cannula 07/03/23 17:09 86 07/03/23 16:12 37.0 C 96 H 20 158/113 H 93 High Flow Nasal Cannula 07/03/23 15:35 116 H 19 96 High Flow Nasal Cannula 07/03/23 12:19 37.1 C 82 20 149/101 H 93 High Flow Nasal Cannula 07/03/23 11:20 88 18 92 High Flow Nasal Cannula O2 Flow Rate FiO2 07/03/23 20:15 35 35 07/03/23 20:08 35 35 07/03/23 19:39 07/03/23 17:09 07/03/23 16:12 07/03/23 15:35 35 35 07/03/23 12:19 07/03/23 11:20 35 45 Laboratory Results Laboratory Results - last 24 hr 07/03/23 06:57 WBC 8.67 RBC 3.70 L Hgb 11.6 L Hct 35.1 L MCV 94.9 MCH 31.4 MCHC 33.0 RDW Std Deviation 44.2 RDW Coeff of Stephen 12.8 Plt Count 273 MPV 10.5 Sodium 145 Potassium 3.7 Chloride 103 Carbon Dioxide 33 H Anion Gap 9 BUN 25 H Creatinine 0.61 Est Cr Clr Drug Dosing 108.4 Est GFR ( Amer) 118.9 Est GFR (Non-Af Amer) 102.6 BUN/Creatinine Ratio 41.0 H Glucose 132 H Calcium 7.7 L Magnesium 2.2 Random Vancomycin 16.8 Diagnostic Findings Chest X-Ray 07/03/23 15:30 SINGLE VIEW CHEST CLINICAL HISTORY: Dyspnea. FINDINGS: An AP, portable, upright chest radiograph is compared to study dated 07/02/2023 and correlated with chest CT dated 06/30/2023. The examination is degraded by portable technique, apical lordotic positioning, and patient rotation. The cardiomediastinal silhouette is obscured. There is atherosclerotic calcification of the thoracic aorta. There is elevation of the left hemidiaphragm with dense consolidation in the left mid lower lung. Mild atelectasis is seen at the right lung base. Suspect small pleural effusions. No pneumothorax is identified. The skeletal structures are osteopenic. The bony thorax is grossly intact. Degenerative change and scoliosis is noted in the spine. Fusion hardware is noted in the lower cervical spine. IMPRESSION: 1. No significant change from yesterday. Airspace consolidation is again seen in the left mid to lower lung. 2. Atelectasis is noted at the right lung base. 3. Suspect small pleural effusions. ACT 112: Negative or not required by law. Electronically signed by: Nathaniel Pleitez M.D. 07/03/2023 4:26 PM PG Care Time/CCT Total # of Minutes Spent Total Time Spent with Patient: Total time spent is greater than 50% in coordination of care (as documented) at patient's floor/unit and/or counseling patient: Coding Level of Care Code 63842 SUB INP/OBS CARE 3/50MIN Diagnoses Acute on chronic respiratory failure with hypoxia and hypercapnia J96.21; J96.22 Pneumonia J18.9 Laterality: unspecified laterality Lung location: unspecified part of lung Pneumonia type: due to unspecified organism Influenza due to identified 2009 H1N1 influenza virus with pneumonia J10.00 Sepsis A41.9 Sepsis acute organ dysfunction status: unspecified Sepsis type: sepsis due to unspecified organism Vocal cord paralysis J38.00 Positive blood culture R78.81 Chronically elevated hemidiaphragm J98.6 Chronic obstructive pulmonary disease, unspecified COPD type J44.9 COPD type: unspecified COPD Primary hypertension I10 Hypertension type: primary hypertension Myelopathy concurrent with and due to spinal stenosis of cervical region M48.02; G99.2 Depression F32.0 Active/Remission status: currently active Depression Type: major depressive disorder Major depression episode severity: mild Major depression recurrence: single episode Opioid dependence F11.20 Acute metabolic encephalopathy G93.41 Hypophosphatemia E83.39 Acid reflux K21.9 DVT prophylaxis Z29.9 (2) Pneumonia Laterality: unspecified laterality Lung location: unspecified part of lung Pneumonia type: due to unspecified organism Qualified Code(s): J18.9 - Pneumonia, unspecified organism (4) Sepsis Sepsis acute organ dysfunction status: unspecified Sepsis type: sepsis due to unspecified organism Qualified Code(s): A41.9 - Sepsis, unspecified organism (8) COPD (chronic obstructive pulmonary disease) COPD type: unspecified COPD Qualified Code(s): J44.9 - Chronic obstructive pulmonary disease, unspecified (9) Hypertension Hypertension type: primary hypertension Qualified Code(s): I10 - Essential (primary) hypertension (11) Depression Active/Remission status: currently active Depression Type: major depressive disorder Major depression episode severity: mild Major depression recurrence: single episode Qualified Code(s): F32.0 - Major depressive disorder, single episode, mild
[2023-07-04] MEDS: oxyCODONE HCL IR 5 MG TAB (IMMEDIATE RELEASE) PO PRN ×5 (02:56→21:19)
[2023-07-04] MEDS: LORazepam 0.5 MG TAB PO SCH ×4 (02:56→20:34)
[2023-07-04] MEDS: MoRPHine SULFATE 2 MG/ML CARP IV PRN ×5 (02:57→20:34)
[2023-07-04] MEDS: PIPERACILLIN/TAZOBACTAM 4.5 GM in DEXTROSE 5% MINI-B 100 ML IV SCH ×3 (04:45→20:41)
[2023-07-04] MEDS: ALBUT/IPRATROP 3MG/0.5MG NEB 3 ML VIAL NEB PRN (05:53)
[2023-07-04] MEDS ORDERED: FAMOTIDINE 40 MG TABLET PO ONE (06:01)
[2023-07-04 07:23] LABS: Hematocrit (blood only) 38.5 % (42.0-52.0); Mean Corpuscular Hemoglobin 31.5 pg (25.0-34.0); Mean Corpuscular Hgb Conc 33.8 g/dL (32.0-36.0); Mean Corpuscular Volume 93.2 fL (80.0-100.0); Mean Platelet Volume 9.4 fL (9.4-12.4); Platelet Count 302 K/uL (130-400); RDW Coefficient of Variation 12.5 % (11.5-14.5); RDW Standard Deviation 42.7 fL (36.4-46.3); Red Blood Count 4.13 M/uL (4.70-6.10); White Blood Count 8.87 K/ul (4.8-10.8)
[2023-07-04] MEDS: FORMOTEROL 20 MCG/2 ML VIAL NEB SCH ×2 (07:26→19:18)
[2023-07-04] MEDS: SODIUM CHLOR 7% 4 ML NEB NEB SCH ×2 (07:27→19:18)
[2023-07-04] MEDS: SUCRALFATE 1 GM/10 ML UDC PO SCH ×4 (07:37→20:35)
[2023-07-04 07:49] LABS: BUN Creatinine Ratio 43.5 (10-20); Calcium 7.9 mg/dl (8.6-10.3); Creatinine Clr Calc Pharmacy 106.6 ml/min; Est GFR (African American) 118.1 ml/min; Est GFR (Non-African American) 101.9 ml/min; Potassium 3.2 mmol/L (3.5-5.1)
[2023-07-04] MEDS ORDERED: FUROSEMIDE INJ 20 MG/2 ML VIAL IV ONE (08:01)
[2023-07-04] MEDS: ACETAMINOPHEN 500 MG TAB PO SCH ×3 (10:11→20:34)
[2023-07-04] MEDS: buPROPion XL 150 MG TABCR PO SCH (10:12)
[2023-07-04] MEDS: busPIRone 15 MG TAB PO SCH ×2 (10:12→20:37)
[2023-07-04] MEDS: guaiFENesin 600 MG TABCR PO SCH ×2 (10:12→20:38)
[2023-07-04] MEDS: CALCIUM 600MG + VIT D 400 IU TAB PO SCH ×2 (10:12→20:36)
[2023-07-04] MEDS: CETIRIZINE HCL 10 MG TABLET PO PRN (10:12)
[2023-07-04] MEDS: GABAPENTIN 100 MG CAP PO SCH ×3 (10:12→20:36)
[2023-07-04] MEDS: POTASSIUM CHLORIDE CRTAB 20 MEQ TABCR PO SCH ×3 (10:12→21:19)
[2023-07-04] MEDS: THIAMINE HCL 100 MG TAB PO SCH (10:12)
[2023-07-04] MEDS: POT PHOSPHATE MONOBASIC W/ SOD TAB PO SCH ×4 (10:13→20:37)
[2023-07-04] MEDS: OSELTAMIVIR PHOSPHATE 75 MG CAP PO SCH ×2 (10:13→20:38)
[2023-07-04] MEDS: GABAPENTIN 800 MG TAB PO SCH ×3 (10:13→20:39)
[2023-07-04] MEDS: ENOXAPARIN INJ 40 MG/0.4 ML SYR SQ SCH (10:13)
[2023-07-04] MEDS: methylPREDNISolone 30 MG in SYRINGE 0 ML IV SCH ×2 (10:14→20:40)
[2023-07-04] MEDS: PANTOprazole 40 MG in SYRINGE 0 ML IV SCH ×2 (10:14→20:35)
[2023-07-04] MEDS: DOXYCYCLINE HYCLATE 100 MG in DEXTROSE 5% MINI-B 100 ML IV SCH ×2 (10:19→21:19)
[2023-07-04] MEDS: DOCUSATE SODIUM 100 MG CAP PO SCH ×2 (10:22→20:04)
[2023-07-04] MEDS: DOCUSATE SODIUM/SENNA 50/8.6MG TAB PO SCH ×2 (10:22→20:04)
[2023-07-04] MEDS: FLUCONAZOLE 100 MG TAB PO SCH (12:13)
--- NOTE | 2023-07-04 16:14 | XRay Report ---
XR chest 1V portable CLINICAL HISTORY: f/u COMPARISON STUDY: Chest CT June 30, 2023. Chest radiograph July 03, 2023. FINDINGS: Postoperative findings within the cervical spine and severe thoracic spine levoscoliosis ar e incidentally noted. There is no pneumothorax. Small left pleural effusion is again noted with chron ic elevation of left hemidiaphragm. Extensive left lung opacification is similar to prior exam. No de finite consolidation within the right lung. No evidence for pulmonary edema. Left lung volume loss is present. IMPRESSION: 1. No significant change in extensive left lung airspace opacity suggestive of pneumonia. 2. Stable elevation of the left hemidiaphragm with left lung volume loss. Small left pleural effusion . ACT 112: Negative or not required by law. Electronically signed by: Mode Real M.D. 07/04/2023 4:13 PM
--- NOTE | 2023-07-04 19:13 | Hospitalist Progress Note ---
Date of Service July 04, 2023 Assessment & Plan (1) Acute on chronic respiratory failure with hypoxia and hypercapnia: Plan: acute component 2nd to fluA infection, b/l pneumonia left (severe) > right, COPD with exacerbation, pulmonary edema. some improvement over the last 24 hours. chronic component - COPD, left-sided hemidiaphragm elevation, etc up until about 6 months ago (per patient) he was on NC O2 2.5 L continuously uncertain why it was stopped keep O2 sats 90-92% on supplemental O2 - blend with BIPAP - or use HFNC. can alternate BIPAP with HFNC as tolerated suspected pulm edema - s/p lasix yesterday gave lasix again today - he is tolerating such with stable creatinine cxr today with ongoing extensive infiltrates on left but no change from prior cxr (2) Pneumonia: Plan: DEANNA/LLL extensive, severe likely bacterial superinfection in the setting of fluA infection day #5 of broad-spectrum IV abx - remains on zosyn bronch cultures negative for MRSA or other resistant staph - stop IV vanco cont atypical coverage with doxy 100mg BID - day #4 s/p bronch 07/01/[address] Capps - large mucous plugging found in the left bronchial tree; plugs removed all bronch cultures negative to date - no specific bacterial pathogen identified appreciate pulmonary assistance continue HFNC or BIPAP, nebs, steroids, supportive care (3) Influenza due to identified 2008 H1N1 influenza virus with pneumonia: Plan: fluA infection tamiflu 75mg BID x 5 days day #5 today supportive care treat superimposed bacterial superinfection of left lung - see above (4) Sepsis: Plan: 2nd influenza A infection 2nd left-sided pneumonia (5) Vocal cord paralysis: Plan: history of such per records risk factor for aspiration reason for vocal cord paralysis? prior c-spine surgery? other? too sick for video swallow still speech following (6) Positive blood culture: Plan: coag neg staph 2 out of 8 bottles + for such likely contaminant IV vancomycin was d/c (7) Chronically elevated hemidiaphragm: Plan: left-side etiology uncertain present for several years has seen [facility] Pulm for this as outaptient - no Rx recommended during the last office visit in 2020 (8) COPD (chronic obstructive pulmonary disease): Plan: with exacerbation but no wheezing and patient overall improved with less FiO2 requirements relative to 48 hours ago cont solumedrol 30mg IV BID - no wean today chronic prednisone use - 5mg QOD - for COPD? for #9? outpatient records suggest it is for chronic pain cont nebs pulmonary consult appreciated (9) Hypertension: Plan: not on meds for such follow BPs for now defer on treating mildly high readings (10) Myelopathy concurrent with and due to spinal stenosis of cervical region: Plan: severe 04/2020 - extensive c-spine surgery by Dr Álvarez outpatient pulmonary note from 2020 suggests that some of his vocal cord paralysis +/- hemidiaphragm elevation could be from prior surgery vs the c-spine disease itself (11) Depression: Plan: cont all home meds (12) Opioid dependence: Plan: oxycodone 15mg q4h prn chronic back/neck pain PDMP shows chronic prescriptions for oxy 10's just recently his dose was increased to 15mg tabs cont cautious use of morphine IV or oxycodone in the midst of his respiratory illness (13) Acute metabolic encephalopathy: Plan: multifactorial - influenza infection, left-sided pneumonia, hypercapnia, hypoxia, meds for sedation for bronch earlier today, etc ongoing but improved cont supportive care treat flu treat pneumonia treat elevated CO2 levels with BIPAP keep O2 sats 90-92% -- do not over-oxygenate (14) Hypophosphatemia: Plan: mild ongoing cont K-Phos 2 cap qid repeat level am (15) Acid reflux: Plan: takes pepcid daily at home having frequent reflux symptoms cont PPI BID cont carafate qid cont usual pepcid 20mg daily CT chest showed esophageal wall thickening which is suggestive of esophagitis sine he continues to complain of GERD symptoms will empirically Rx for candidiasis with diflucan given chronic prednisone use (is at risk of thrush and candidal esophagitis due to the chronic steroids) thus, start diflucan 200mg daily to cover empirically; too sick for EGD of course (16) DVT prophylaxis: Plan: lovenox daily Plan left message for pt's son, Jules, on his voicemail 06/30/23 spoke with Jules on 07/02/23 by phone - lengthy update given spoke again with Jules today - update given patient remains very ill and at high risk of worsening illness but does seem to have improved some over the last 48 hours PT/OT evals when medically more stable Admission and Anticipated Discharge Date Admission Date: June 29, 2023 Subjective patient resting comfortably in bed during the visit remains on high-flow NC the amount of FIO2 was increased overnight, however, in comparison to yesterday he asks when he can have his next pain pill denies cough does admit to dyspnea with activity but not at rest no chest pain no abd pain cleared by speech to take a diet today Review of Systems Review of Systems: cv - denies orthopnea or chest pain pulm - no sputum production GI - no abd pain/nausea/emesis Physical Exam Physical Exam: gen - pleasantly confused, but looks better today - dyspnea resolved, tachypnea largely resolved; able to talk in complete sentences w/o getting dyspneic neck - no JVD heart - RRR, s1 s2, no obvious murmur lungs - decreased BS left lung, base particularly; slight airation DEANNA; rales on right - mild; increased work of breathing resolved abd - soft NT ND BS+ ext - no edema, pulses 2+ b/l psych - pleasant confusion Results & Data Results & Data Vital Signs (Past 12 Hours) Vital Signs Temp Pulse Pulse Resp BP Pulse Ox O2 Del Method 07/04/23 15:21 36.5 C 103 H 18 139/86 98 High Flow Nasal Cannula 07/04/23 15:09 79 18 97 High Flow Nasal Cannula 07/04/23 14:01 85 07/04/23 11:53 36.5 C 86 18 142/88 H 99 High Flow Nasal Cannula 07/04/23 11:05 100 H 20 98 High Flow Nasal Cannula 07/04/23 09:58 High Flow Nasal Cannula 07/04/23 08:01 36.6 C 99 H 18 152/102 H 92 Room Air 07/04/23 07:27 74 22 94 High Flow Nasal Cannula O2 Flow Rate FiO2 07/04/23 15:21 07/04/23 15:09 35 60 07/04/23 14:01 07/04/23 11:53 07/04/23 11:05 35 70 07/04/23 09:58 35 60 07/04/23 08:01 07/04/23 07:27 35 70 Laboratory Results Laboratory Results 07/04/23 06:21 WBC 8.87 RBC 4.13 L Hgb 13.0 L Hct 38.5 L MCV 93.2 MCH 31.5 MCHC 33.8 RDW Std Deviation 42.7 RDW Coeff of Stephen 12.5 Plt Count 302 MPV 9.4 Sodium 145 Potassium 3.2 L Chloride 100 Carbon Dioxide 37 H Anion Gap 8 BUN 27 H Creatinine 0.62 Est Cr Clr Drug Dosing 106.6 Est GFR ( Amer) 118.1 Est GFR (Non-Af Amer) 101.9 BUN/Creatinine Ratio 43.5 H Glucose 100 H Calcium 7.9 L PG Care Time/CCT Total # of Minutes Spent Total Time Spent with Patient: Total time spent is greater than 50% in coordination of care (as documented) at patient's floor/unit and/or counseling patient: Coding Level of Care Code 07619 SUB INP/OBS CARE 3/50MIN Diagnoses Acute on chronic respiratory failure with hypoxia and hypercapnia J96.21; J96.22 Pneumonia J18.9 Laterality: unspecified laterality Lung location: unspecified part of lung Pneumonia type: due to unspecified organism Influenza due to identified 2008 H1N1 influenza virus with pneumonia J10.00 Sepsis A41.9 Sepsis acute organ dysfunction status: unspecified Sepsis type: sepsis due to unspecified organism Vocal cord paralysis J38.00 Positive blood culture R78.81 Chronically elevated hemidiaphragm J98.6 Chronic obstructive pulmonary disease, unspecified COPD type J44.9 COPD type: unspecified COPD Primary hypertension I10 Hypertension type: primary hypertension Myelopathy concurrent with and due to spinal stenosis of cervical region M48.02; G99.2 Depression F32.0 Active/Remission status: currently active Depression Type: major depressive disorder Major depression episode severity: mild Major depression recurrence: single episode Opioid dependence F11.20 Acute metabolic encephalopathy G93.41 Hypophosphatemia E83.39 Acid reflux K21.9 DVT prophylaxis Z29.9 (2) Pneumonia Laterality: unspecified laterality Lung location: unspecified part of lung Pneumonia type: due to unspecified organism Qualified Code(s): J18.9 - Pneumonia, unspecified organism (4) Sepsis Sepsis acute organ dysfunction status: unspecified Sepsis type: sepsis due to unspecified organism Qualified Code(s): A41.9 - Sepsis, unspecified organism (8) COPD (chronic obstructive pulmonary disease) COPD type: unspecified COPD Qualified Code(s): J44.9 - Chronic obstructive pulmonary disease, unspecified (9) Hypertension Hypertension type: primary hypertension Qualified Code(s): I10 - Essential (primary) hypertension (11) Depression Active/Remission status: currently active Depression Type: major depressive disorder Major depression episode severity: mild Major depression recurrence: single episode Qualified Code(s): F32.0 - Major depressive disorder, single episode, mild
[2023-07-04] MEDS: MELATONIN 3 MG TAB PO SCH (20:34)
[2023-07-04] MEDS: MIRTAZAPINE TAB 15 MG TAB PO SCH (20:37)
[2023-07-04] MEDS: ATORVASTATIN 10 MG TAB PO SCH (20:38)
[2023-07-04] MEDS: FAMOTIDINE 20 MG TAB PO SCH (20:39)
[2023-07-05] MEDS: LORazepam 0.5 MG TAB PO SCH ×4 (02:30→21:20)
[2023-07-05] MEDS: oxyCODONE HCL IR 5 MG TAB (IMMEDIATE RELEASE) PO PRN ×4 (04:46→21:19)
[2023-07-05] MEDS: PIPERACILLIN/TAZOBACTAM 4.5 GM in DEXTROSE 5% MINI-B 100 ML IV SCH ×3 (04:46→21:20)
[2023-07-05] MEDS: MoRPHine SULFATE 2 MG/ML CARP IV PRN (04:47)
[2023-07-05] MEDS: ALBUT/IPRATROP 3MG/0.5MG NEB 3 ML VIAL NEB PRN (05:13)
[2023-07-05] MEDS: SODIUM CHLOR 7% 4 ML NEB NEB SCH ×2 (07:17→20:15)
[2023-07-05] MEDS: FORMOTEROL 20 MCG/2 ML VIAL NEB SCH (07:17)
[2023-07-05 07:43] LABS: BUN Creatinine Ratio 50.8 (10-20); Calcium 7.5 mg/dl (8.6-10.3); Creatinine Clr Calc Pharmacy 111.2 ml/min; Est GFR (African American) 120.6 ml/min; Magnesium 2.2 mg/dl (1.7-2.4); Phosphorus 4.1 mg/dl (2.5-4.9); Potassium 3.8 mmol/L (3.5-5.1)
[2023-07-05] MEDS ORDERED: FUROSEMIDE INJ 20 MG/2 ML VIAL IV ONE (08:15)
[2023-07-05] MEDS: ALBUT/IPRATROP 3MG/0.5MG NEB 3 ML VIAL NEB SCH ×4 (08:38→20:15)
[2023-07-05 08:46] LABS: HCO3 VBG 42 mmol/L; Oxygen Saturation VBG < 60.0 %; PCO2 VBG 66 mmHg (38-50); PO2 VBG 26 mmHg; pH VBG 7.41 (7.36-7.41)
[2023-07-05] MEDS: methylPREDNISolone 30 MG in SYRINGE 0 ML IV SCH ×2 (08:55→21:13)
[2023-07-05] MEDS: buPROPion XL 150 MG TABCR PO SCH (08:55)
[2023-07-05] MEDS: PANTOprazole 40 MG in SYRINGE 0 ML IV SCH ×2 (08:55→21:13)
[2023-07-05] MEDS: SUCRALFATE 1 GM/10 ML UDC PO SCH ×4 (08:55→21:16)
[2023-07-05] MEDS: POTASSIUM CHLORIDE CRTAB 20 MEQ TABCR PO SCH ×2 (08:56→21:15)
[2023-07-05] MEDS: GABAPENTIN 800 MG TAB PO SCH ×3 (08:56→21:14)
[2023-07-05] MEDS: POT PHOSPHATE MONOBASIC W/ SOD TAB PO SCH ×2 (08:56→21:15)
[2023-07-05] MEDS: GABAPENTIN 100 MG CAP PO SCH ×3 (08:56→21:12)
[2023-07-05] MEDS: CALCIUM 600MG + VIT D 400 IU TAB PO SCH ×2 (08:56→21:21)
[2023-07-05] MEDS: busPIRone 15 MG TAB PO SCH ×2 (08:56→21:14)
[2023-07-05] MEDS: FLUCONAZOLE 100 MG TAB PO SCH (08:56)
[2023-07-05] MEDS: CETIRIZINE HCL 10 MG TABLET PO PRN (08:56)
[2023-07-05] MEDS: THIAMINE HCL 100 MG TAB PO SCH (08:56)
[2023-07-05] MEDS: guaiFENesin 600 MG TABCR PO SCH ×2 (08:56→21:14)
[2023-07-05] MEDS: DOCUSATE SODIUM 100 MG CAP PO SCH ×2 (08:57→21:19)
[2023-07-05] MEDS: DOCUSATE SODIUM/SENNA 50/8.6MG TAB PO SCH ×2 (08:57→21:19)
[2023-07-05] MEDS: ENOXAPARIN INJ 40 MG/0.4 ML SYR SQ SCH (08:57)
[2023-07-05 09:00] LABS: Hematocrit (blood only) 38.7 % (42.0-52.0); Hemoglobin 12.7 g/dl (14.0-18.0); Mean Corpuscular Hemoglobin 31.4 pg (25.0-34.0); Mean Corpuscular Hgb Conc 32.8 g/dL (32.0-36.0); Mean Corpuscular Volume 95.8 fL (80.0-100.0); Mean Platelet Volume 9.5 fL (9.4-12.4); Platelet Count 290 K/uL (130-400); RDW Coefficient of Variation 12.9 % (11.5-14.5); RDW Standard Deviation 45.3 fL (36.4-46.3); Red Blood Count 4.04 M/uL (4.70-6.10); White Blood Count 10.17 K/ul (4.8-10.8)
--- NOTE | 2023-07-05 09:04 | XRay Report ---
XR chest 1V portable HISTORY: Respiratory failure, worsening hypoxia COMPARISON: Chest 07/04/2023. FINDINGS: Near complete opacification of the left hemithorax which has slightly progressed. Stable le ft mediastinal shift. Right basilar linear densities persist and favor subsegmental atelectasis. Calc ifications within the aortic knob. Levoscoliosis of the cervicothoracic spine again noted. There is c ervical spinal fusion hardware. A small left pleural effusion persists. IMPRESSION: Near complete opacification of the left hemithorax which has slightly progressed. A left pleural effu jose d persists. ACT 112: Negative or not required by law. Electronically signed by: Cash Santoro M.D. 07/05/2023 9:03 AM
[2023-07-05] MEDS: ACETAMINOPHEN 500 MG TAB PO SCH ×3 (09:06→21:22)
[2023-07-05] MEDS: DOXYCYCLINE HYCLATE 100 MG in DEXTROSE 5% MINI-B 100 ML IV SCH ×2 (09:07→22:23)
--- NOTE | 2023-07-05 11:23 | Hospitalist Progress Note ---
Date of Service July 05, 2023 Assessment & Plan (1) Acute on chronic respiratory failure with hypoxia and hypercapnia: Plan: acute component 2nd to fluA infection, b/l pneumonia left (severe) > right, left lung mucous plugging, COPD with exacerbation, pulmonary edema. WORSE Today - DEANNA now opacified much like a few days ago. Previous collapse of DEANNA was due to mucous plugging chronic component - COPD, left-sided hemidiaphragm elevation, etc plan - I spoke with Dr Capps from pulmonary He recommends repeat bronchoscopy to remove any recurrent mucous plugs This will likely require elective intubation I then spoke with Dr Felder from the ICU and he agreed with plan patient subsequently transferred to ICU (2) Pneumonia: Plan: DEANNA/LLL extensive, severe bacterial superinfection in the setting of fluA infection day #6 of broad-spectrum IV abx - remains on zosyn bronch cultures negative for MRSA or other resistant staph - IV vanco has been cont atypical coverage with doxy 100mg BID - day #5 s/p bronch 07/01/[address] Capps - large mucous plugging found in the left bronchial tree; plugs removed all bronch cultures negative to date - no specific bacterial pathogen identified appreciate pulmonary assistance patient transferred to ICU due to acute worsening this am - likely collapse of DEANNA due to mucous plugging cannot rule out worsening left pleural effusion as well patient will need repeat bronchoscopy as noted above (3) Influenza due to identified 2008 H1N1 influenza virus with pneumonia: Plan: fluA infection tamiflu 75mg BID x 5 days - course completed cont supportive care treat superimposed bacterial superinfection of left lung - see above (4) Sepsis: Plan: 2nd influenza A infection 2nd left-sided pneumonia see "positive blood culture" below (5) Vocal cord paralysis: Plan: history of such per records risk factor for aspiration reason for vocal cord paralysis? prior c-spine surgery? other? too sick for video swallow speech following; was cleared for diet yesterday; diet as tolerated if pulmonary status will allow (6) Positive blood culture: Plan: coag neg staph 2 out of 8 bottles + for such likely contaminant IV vancomycin was d/c several days ago (7) Chronically elevated hemidiaphragm: Plan: left-side etiology uncertain present for several years has seen [facility] for this as outaptient - no Rx recommended during the last office visit in 2020 (8) COPD (chronic obstructive pulmonary disease): Plan: with exacerbation but no wheezing at this time cont solumedrol 30mg IV BID - no wean today due to acute worsening in his condition chronic prednisone use - 5mg QOD - for COPD? for #9? outpatient records suggest it is for chronic pain cont nebs pulmonary consult appreciated (9) Hypertension: Plan: not on meds for such follow BPs for now (10) Myelopathy concurrent with and due to spinal stenosis of cervical region: Plan: severe 04/2020 - extensive c-spine surgery by Dr Álvarez outpatient pulmonary note from 2020 suggests that some of his vocal cord paralysis +/- hemidiaphragm elevation could be from prior surgery vs the c-spine disease itself (11) Depression: Plan: cont all home meds (12) Opioid dependence: Plan: oxycodone 15mg q4h prn takes narcotics for chronic back/neck pain PDMP shows chronic prescriptions for oxy 10's just recently his dose was increased to 15mg tabs as outpatient cont cautious use of morphine IV or oxycodone in the midst of his respiratory illness (13) Acute metabolic encephalopathy: Plan: multifactorial - influenza infection, left-sided pneumonia, hypercapnia, h ypoxia, meds for sedation for bronch earlier today, etc ongoing but stable cont supportive care treat flu treat pneumonia treat elevated CO2 levels with BIPAP keep O2 sats 90-92% -- do not over-oxygenate (14) Hypophosphatemia: Plan: mild improved with K-phos reduce to BID dosing recheck level in 2 days for stability (15) Acid reflux: Plan: takes pepcid daily at home having frequent reflux symptoms this entire stay cont PPI BID cont carafate qid cont usual pepcid 20mg daily CT chest showed esophageal wall thickening which is suggestive of esophagitis since he continues to complain of GERD symptoms will empirically Rx for candidiasis with diflucan given chronic prednisone use (is at risk of thrush and candidal esophagitis due to the chronic steroids) thus, started diflucan 200mg daily to cover maxwell empirically on 07/04/23; too sick for EGD of course (16) DVT prophylaxis: Plan: lovenox daily Plan left message for pt's son, Jules, on his voicemail 06/30/23 spoke with Jules on 07/02/23 by phone - lengthy update given updated Jules on 07/04/23 by phone I spoke with Jules this am regarding his father's acute worsening this morning discussed likely need for repeat bronchoscopy and elective intubation Jules supports these measures care d/w Dr Capps care d/w Dr Felder Admission and Anticipated Discharge Date Admission Date: June 29, 2023 Subjective notified by nursing this am that patient was having worsening hypoxia necessitating increase in high-flow NC to maxed out settings chest x-ray with complete opacification of the left lung during my bedside visit he was initially sleeping he was tachypneic he awoke easily to his name being called he c/o dyspnea he asked for pain meds Review of Systems Review of Systems: cv - no chest pain pulm - no sputum GI - no abd pain Physical Exam Physical Exam: gen - looks ill, mildly confused, tachypnea noted neck - no JVD heart - RRR, s1 s2, no obvious murmur lungs - decreased BS left lung (entire left lung); rales right base; +increased work of breathing with tachypnea, mild retractions abd - soft NT ND BS+ ext - no edema, pulses 2+ b/l psych - confusion present Results & Data Results & Data Vital Signs (Past 12 Hours) Vital Signs Temp Pulse Resp BP Pulse Ox O2 Del Method O2 Flow Rate 07/05/23 11:01 99 H 20 98 High Flow Nasal Cannula 40 07/05/23 08:40 105 H 22 91 High Flow Nasal Cannula 40 07/05/23 08:06 36.6 C 69 18 145/92 H 95 BiPAP 07/05/23 08:00 High Flow Nasal Cannula 35 07/05/23 07:20 88 20 94 High Flow Nasal Cannula 35 07/05/23 05:14 96 H 18 86 L High Flow Nasal Cannula 35 07/05/23 03:05 77 20 91 High Flow Nasal Cannula 60 FiO2 07/05/23 11:01 80 07/05/23 08:40 100 07/05/23 08:06 07/05/23 08:00 60 07/05/23 07:20 60 07/05/23 05:14 70 07/05/23 03:05 35 Laboratory Results Laboratory Results - last 24 hr 07/04/23 07/05/23 07/05/23 Unknown 06:35 08:16 WBC 10.17 RBC 4.04 L Hgb 12.7 L Hct 38.7 L MCV 95.8 MCH 31.4 MCHC 32.8 RDW Std Deviation 45.3 RDW Coeff of Stephen 12.9 Plt Count 290 MPV 9.5 VBG pH 7.41 VBG pCO2 66 H VBG pO2 26 VBG HCO3 42 VBG O2 Saturation < 60.0 VBG Base Excess 14.0 Sodium 145 Potassium 3.8 Chloride 103 Carbon Dioxide 37 H Anion Gap 5 BUN 30 H Creatinine 0.59 L Est Cr Clr Drug Dosing 111.2 Est GFR ( Amer) 120.6 Est GFR (Non-Af Amer) 104.0 BUN/Creatinine Ratio 50.8 H Glucose 134 H Calcium 7.5 L Phosphorus 4.1 Magnesium 2.2 C-Reactive Protein 1.43 H Diagnostic Findings Chest X-Ray 07/05/23 08:12 XR chest 1V portable HISTORY: Respiratory failure, worsening hypoxia COMPARISON: Chest 07/04/2023. FINDINGS: Near complete opacification of the left hemithorax which has slightly progressed. Stable left mediastinal shift. Right basilar linear densities persist and favor subsegmental atelectasis. Calcifications within the aortic knob. Levoscoliosis of the cervicothoracic spine again noted. There is cervical spinal fusion hardware. A small left pleural effusion persists. IMPRESSION: Near complete opacification of the left hemithorax which has slightly progressed. A left pleural effusion persists. ACT 112: Negative or not required by law. Electronically signed by: Cash Santoro M.D. 07/05/2023 9:03 AM PG Care Time/CCT Total # of Minutes Spent Total Time Spent with Patient: Total time spent is greater than 50% in coordination of care (as documented) at patient's floor/unit and/or counseling patient: Coding Level of Care Code 19201 SUB INP/OBS CARE 3/50MIN Diagnoses Acute on chronic respiratory failure with hypoxia and hypercapnia J96.21; J96.22 Pneumonia J18.9 Laterality: unspecified laterality Lung location: unspecified part of lung Pneumonia type: due to unspecified organism Influenza due to identified 2009 H1N1 influenza virus with pneumonia J10.00 Sepsis A41.9 Sepsis acute organ dysfunction status: unspecified Sepsis type: sepsis due to unspecified organism Vocal cord paralysis J38.00 Positive blood culture R78.81 Chronically elevated hemidiaphragm J98.6 Chronic obstructive pulmonary disease, unspecified COPD type J44.9 COPD type: unspecified COPD Primary hypertension I10 Hypertension type: primary hypertension Myelopathy concurrent with and due to spinal stenosis of cervical region M48.02; G99.2 Depression F32.0 Active/Remission status: currently active Depression Type: major depressive disorder Major depression episode severity: mild Major depression recurrence: single episode Opioid dependence F11.20 Acute metabolic encephalopathy G93.41 Hypophosphatemia E83.39 Acid reflux K21.9 DVT prophylaxis Z29.9 (2) Pneumonia Laterality: unspecified laterality Lung location: unspecified part of lung Pneumonia type: due to unspecified organism Qualified Code(s): J18.9 - Pneumonia, unspecified organism (4) Sepsis Sepsis acute organ dysfunction status: unspecified Sepsis type: sepsis due to unspecified organism Qualified Code(s): A41.9 - Sepsis, unspecified organism (8) COPD (chronic obstructive pulmonary disease) COPD type: unspecified COPD Qualified Code(s): J44.9 - Chronic obstructive pulmonary disease, unspecified (9) Hypertension Hypertension type: primary hypertension Qualified Code(s): I10 - Essential (primary) hypertension (11) Depression Active/Remission status: currently active Depression Type: major depressive disorder Major depression episode severity: mild Major depression recurrence: single episode Qualified Code(s): F32.0 - Major depressive disorder, single episode, mild
--- NOTE | 2023-07-05 12:06 | Pulmonology Progress Note ---
Date of Service July 05, 2023 Assessment & Plan (1) Pneumonia: Laterality: unspecified laterality Lung location: unspecified part of lung Pneumonia type: due to unspecified organism Qualified Code(s): J18.9 - Pneumonia, unspecified organism (2) Acute on chronic respiratory failure with hypoxia and hypercapnia: (3) Influenza due to identified 2009 H1N1 influenza virus with pneumonia: (4) Chronic pulmonary aspiration: (5) Vocal cord weakness: (6) Chronically elevated hemidiaphragm: Plan IMPRESSION: 67-year-old male with significant past medical history of chronic hypoxic respiratory failure, chronic hypercapnic respiratory failure, chronic aspiration events, elevated LEFT-sided hemidiaphragm, vocal cord dysfunction, and acute influenza infection who presented in acute on chronic hypoxic respiratory failure with hypercapnia. RECOMMENDATIONS: 1. Pneumonia - Dense LEFT-sided infiltrative changes noted on chest x-ray with mucous plugging noted on CT and bronchoscopy. He is at risk for developing fibrosis in this left lung. I discussed intubation and mechanical ventilation with the patient as I believe this is the next best step to treat this left- sided pneumonia. It is possible, that the patient may end up needing a tracheostomy as he may not wean from the ventilator. Continue with broad spectrum antibiotics for now until bronch cultures available. Continue to cover anerobes for likely lindsey aspiration. Continue with pulmonary toileting as well. 2. Acute on chronic hypoxic respiratory failure with hypercapnia -he is requiring escalating amounts of oxygen due to poor ventilation. 3. Influenza infection - Continue with supportive care. Pulmonary toileting as above. 4. Chronic pulmonary aspiration - Had been noted within the last 3 years. 5. Vocal cord weakness - Likely contributes to the patient's aspiration. Has been evaluated for this in the past by ENT. 6. Chronically elevated hemidiaphragm (LEFT) - Likely resulting in restrictive physiology noted on pulmonary function testing performed on 04/19/2021. Findings consistent with an FVC of 1.57 L or 38% predicted, FEV1 of 1.31 L or 40% predicted, and a ratio of 84%. Moderately decreased DLCO at 44% at that time. His spirometry was also noted to be worse in the supine position versus upright. We will continue to follow. Thank you for the consult. Admission and Anticipated Discharge Date Admission Date: June 29, 2023 Subjective Patient had a setback today and is requiring higher amounts of high flow oxygen. He has been essentially bedbound for the past 5 days. He is taking in very little nutrition. He denies any fevers or chills. He is dyspneic with short sentences. He denies any chest pain. Review of Systems Review of Systems: All systems reviewed & are unremarkable except as noted in HPI & below Physical Exam Physical Exam: VITAL SIGNS - Vital signs and nursing notes were reviewed. GENERAL - 67-year-old male appearing his stated age who is in mild respiratory distress. LUNGS - Tachypnea. Auscultation reveals diminished breath sounds on the LEFT. Coarse breath sounds on the LEFT. No rales or rhonchi appreciated. CARDIAC - RRR with S1/S2. No murmur, rubs, or gallops appreciated. ABDOMEN - BS normoactive all four quadrants. No tenderness, palpable masses, or ascites noted. PSYCH - Somnolent. Results & Data Results & Data Vital Signs (Past 12 Hours) Vital Signs Temp Pulse Resp BP Pulse Ox O2 Del Method O2 Flow Rate 07/05/23 11:01 99 H 20 98 High Flow Nasal Cannula 40 07/05/23 08:40 105 H 22 91 High Flow Nasal Cannula 40 07/05/23 08:06 36.6 C 69 18 145/92 H 95 BiPAP 07/05/23 08:00 High Flow Nasal Cannula 35 07/05/23 07:20 88 20 94 High Flow Nasal Cannula 35 07/05/23 05:14 96 H 18 86 L High Flow Nasal Cannula 35 07/05/23 03:05 77 20 91 High Flow Nasal Cannula 60 FiO2 07/05/23 11:01 80 07/05/23 08:40 100 07/05/23 08:06 07/05/23 08:00 60 07/05/23 07:20 60 07/05/23 05:14 70 07/05/23 03:05 35 PG Care Time/CCT Total # of Minutes Spent Total Time Spent with Patient: Total time spent is greater than 50% in coordination of care (as documented) at patient's floor/unit and/or counseling patient: Coding Level of Care Code 72513 SUB INP/OBS CARE 3/50MIN Diagnoses Pneumonia J18.9 Laterality: unspecified laterality Lung location: unspecified part of lung Pneumonia type: due to unspecified organism Acute on chronic respiratory failure with hypoxia and hypercapnia J96.21; J96.22 Influenza due to identified 2009 H1N1 influenza virus with pneumonia J10.00 Chronic pulmonary aspiration T17.908A Vocal cord weakness J38.00 Chronically elevated hemidiaphragm J98.6
[2023-07-05] MEDS ORDERED: ONDANSETRON INJ 2 MG/ML 2 ML VIAL IV PRN (12:53)
[2023-07-05] MEDS ORDERED: METOCLOPRAMIDE HCL INJ 5 MG/ML 2 ML VIAL IV ONE (17:42)
--- NOTE | 2023-07-05 18:26 | Critical Care Consultation ---
Date of Consultation July 05, 2023 Assessment & Plan (1) Acute on chronic respiratory failure with hypoxia and hypercapnia: Reason Critically Ill: Acute on chronic hypercapnic and hypoxic respiratory failure PLAN: Neuro: Metabolic encephalopathy: Improved Probable dementia/limited capacity -Patient exhibits limited insight into underlying disease process, I do not feel the patient has capacity to manipulate available data to sufficiently provide informed consent -Attempted to contact patient's son who has been utilized as medical decision-maker. -Currently living in [facility] Chronic pain Cervical myelopathy Depression -On baseline chronic narcotics: Oxycodone 15 mg every 4 hours, gabapentin 900 mg 3 times daily as prescribed by primary care provider -Also on sedatives for anxiety including Ativan 0.5 mg 4 times daily buspirone 15 mg twice daily Wellbutrin 150 mg daily Resp: Acute hypoxic respiratory failure with hypercapnia Mucoid impaction of left lung -Status post bronchoscopy 07/01 -Aspergillus, cocci, histoplasmosis, PJP pending Left diaphragmatic paralysis Vocal cord dysfunction Recurrent pulmonary aspiration Influenza A -Agree with pulmonary the patient would likely need intubation for therapeutic bronchoscopy to clear secretions -I believe the patient is at significantly high risk for failure to extubate and even in the best case scenario is he will likely continue to aspirate and plug his bronchus -If patient and family believe it is his desire and in best interest to proceed with aggressive care I would advocate for tracheostomy to facilitate clearance of recurrent secretions/mucoid impaction -I also feel it warrants a discussion regarding overall prognosis regarding CODE STATUS as well as implications of tracheostomy as this will impact his ability to maintain at his residence as his care levels are increasing CV: History hypertension -Not requiring medication treatment Fluids/Renal: Elevated serum bicarb consistent with compensated respiratory acidosis -Electrolyte replacement protocol ID: Day 5 Zosyn Doxycycline day 4 Discontinued vancomycin for positive blood culture -Thought to be contaminant Influenza A: Finishing day 5 of Tamiflu today GI/Nutrition: History of GERD, CT thickening suggestive of esophagitis -Diflucan 200 mg daily started by hospitalist medicine for presumptive candidal esophagitis -Patient carries risk factors of chronic steroids, Magalie isolated out of bronchoscopy as well -Sucralfate Heme: Mild anemia NOS DVT prophylaxis: Lovenox 40 mg daily Endocrine: ICU hyperglycemia protocol Chronic steroid use: Reported 5 mg every other day for chronic pain per outpatient records -Currently on Solu-Medrol IV twice daily started today Vascular access: Peripheral IVs Code Status: Full code -Palliative care consultation: Goals of care -Patient lacks capacity at present time, unable to contact son today, patient's sister desiring to be involved in medical decision making. Given that the patient is stable on his oxygen requirements and given need for probable advanced airway techniques including tracheostomy should the patient be unable to liberate from ventilator, I will hold with elective intubation for bronchoscopic clearance of airways until a robust patient/family/medical treatment team discussion can occur. Disposition: ICU secondary to high flow oxygen requirements (2) Pneumonia: (3) Influenza due to identified 2009 H1N1 influenza virus with pneumonia: (4) Chronic pulmonary aspiration: (5) Vocal cord weakness: (6) Chronically elevated hemidiaphragm: Supervising Physician Co-Signing Physician Notes I have personally spent 95 minutes of critical care time in the direct management of this patient. This is a life/limb threatening event. This includes time spent evaluating patient, direct bedside care, chart review, placing orders, interpretation of diagnostic studies, discussion with consultants, patient, and/or family members regarding treatment decisions, as well as other required patient management activities. This time is exclusive of all separately billable procedures, and teaching time and separate from and in addition to any other critical care service time. History of Present Illness Reason for Consultation: Acute hypoxic respiratory failure need for bronchoscopy to clear airways secondary to mucoid impaction in the setting of paralyzed diaphragm and paralyzed vocal cord Attending Physician: David Townsend MD History of Present Illness Patient is a 67-year-old male who was admitted on June 29 for acute hypoxic respiratory failure with hypercapnia secondary to influenza A. He has been seen by the pulmonary service and underwent bronchoscopy secondary to recurrent mucoid impaction and inability to clear his secretions secondary to a paralyzed left hemidiaphragm complicated with chronic pulmonary aspiration and known vocal cord weakness/paralysis. Most recently he underwent bronchoscopy with bronchial washings on July 01, 2023 and he has subsequently recollapsed his left lung. He is saturating well however he requires high flow nasal cannula or CPAP/BiPAP noninvasive mechanical ventilation to sustain his oxygen saturation. I discussed the case with the hospitalist service as well as the pulmonary service: Charlie Rodas. There have been discussions with the patient who does not appear to have capacity. Patient does not have clear insight into underlying disease process admittedly asks why he is having these recurrent issues yet cannot teach back understanding of the paralyzed diaphragm, paralyzed vocal cord nor is able to communicate implications of recurrent aspiration. Patient denies a medical power of privacy attorney, his son has been utilized which is in accordance with [place] statutes. Pulmonary service reports that the patient's son has been involved in care on several occasions providing both consent for bronchoscopy as well as coordination of care when transportation has been needed between living facilities and medical facilities. I attempted to contact the patient's son today and he was not available at the phone number listed in the patient's record. When I asked the patient specifically who he wants to have be his medical decision-maker he reported he wants his son to fulfill those duties. When I asked him what role he would like his sister to be in he is comfortable with her discussing the medical information however patient would prefer his son to take the lead for medical decisions. I was contacted by the patient's sister after the patient attempted to contact her. She reported she was unable to determine what was going on and felt that she needed to "take care of her little brother" and stated she was not sure if the patient's son was involved in the patient's care implicating there was a history of estrangement. From what I can determine the patient's son has been involved in the care and while the patient's sister was listed as the primary contact she has not been utilized for coordination of care, is unfamiliar with his current medical issues. She resides in the state of [place], the son resides in [place]. Allergies Allergy/AdvReac Type Severity Reaction Status Date / Time erythromycin base Allergy Severe DIFFICULTY Verified 06/29/23 18:21 BREATHING, THROAT SWELLS, RASH Home Medications Medication Instructions Recorded Confirmed Type acetaminophen 500 mg tablet 1,000 mg (2 x 500 mg) PO TID #180 02/26/21 06/29/23 Rx (Tylenol Extra Strength) tabs bisacodyl 10 mg rectal suppository 10 mg ND DAILY PRN constipation 02/26/21 06/29/23 Rx #12 ea calcium 600 mg-D3 800 unit-mag11 1 tab PO BID #60 tabs 02/26/21 06/29/23 Rx 50 qq-hsbu-kflnxr-nati-s.borat tablet (Caltrate 600-D Plus Minerals) cetirizine 10 mg tablet 10 mg PO DAILY PRN allergy 02/26/21 06/29/23 Rx symptoms #10 tabs melatonin 3 mg tablet 3 mg PO HS #30 tabs 02/26/21 06/29/23 Rx thiamine HCl (vitamin B1) 100 mg 100 mg PO QAM #30 tabs 02/26/21 06/29/23 Rx tablet (Vitamin B-1) docusate sodium 100 mg capsule 100 mg PO BID #60 caps 07/28/22 06/29/23 Rx sennosides 8.6 mg-docusate sodium 2 tab-cap (2 x 8.6-50 mg) PO BID 07/28/22 06/29/23 Rx 50 mg capsule (Senna Plus) #120 caps celecoxib 100 mg capsule (Celebrex) 100 mg PO DAILY #30 caps 01/23/23 06/29/23 Rx famotidine 20 mg tablet 20 mg PO DAILY #30 tabs 01/23/23 06/29/23 Rx prednisone 5 mg tablet 5 mg PO Q OTHER DAY #15 tabs 02/09/23 06/29/23 Rx buspirone 15 mg tablet 15 mg PO BID #60 tabs 03/23/23 06/29/23 Rx ondansetron 4 mg disintegrating 4 mg PO Q4H PRN nausea and 03/24/23 06/29/23 Rx tablet vomiting #10 tabs bupropion HCl 150 mg 24 hr tablet, 150 mg PO QAM #30 tabs 05/04/23 06/29/23 Rx extended release (Wellbutrin XL) lorazepam 0.5 mg tablet (Ativan) 0.5 mg PO Q6H anxiety #120 tabs 05/08/2306/29 Rx gabapentin 100 mg capsule 100 mg PO TID #90 caps 06/10/23 06/29/23 Rx oxycodone 15 mg tablet 15 mg PO Q4H PRN pain #120 tabs 06/10/23 06/29/23 Rx polyethylene glycol 3350 17 17 g PO DAILY PRN Constipation 06/10/23 06/29/23 History gram/dose oral powder (Miralax) pramoxine 1 % topical cream 1 applic topical DAILY PRN Skin 06/10/23 06/29/23 History (CeraVe Itch Relief) Irritation gabapentin 800 mg tablet 800 mg PO TID #90 tabs 06/15/23 06/29/23 Rx mirtazapine 30 mg tablet 30 mg PO HS #30 tabs 06/15/23 06/29/23 Rx atorvastatin 10 mg tablet 10 mg PO HS 06/29/23 06/29/23 History Patient History Medical History History of recent fall 02/2020 treated at [facility]. currently at [facility] in [place], [place] Osteoarthritis Degenerative disc disease Chronic back pain Hypertension Diverticular disease Venous reflux Diagnosed 10/2018 during admission for what was initially thought to be cellulitis. US showed venous reflux, and cellulitis-appearing symptoms felt 2/2 "waxing/waning symptoms depending on how long he has had his feet down." Stenosis of cervical spine with myelopathy Alcohol withdrawal Suicidal ideation Chronic, continuous use of opioids Spinal stenosis of lumbar region Hypoxia Pneumonia ~2017 Anxiety Arthritis Hearing difficulty Hyperlipidemia Stomach ulcer hx Neuropathy bilateral legs Surgical History Hx of umbilical hernia repair History of right inguinal hernia repair History of left inguinal hernia repair Foreign body of right eye removal of a small piece of metal about ~1979 History of tonsillectomy History of bowel resection r/t diverticulitis History of colonoscopy History of appendectomy History of esophagogastroduodenoscopy (EGD) History of oral surgery all teeth removed Family History Mother Anxiety Depression Cardiac disorder Hypertension Diabetes Mesothelioma Father Mesothelioma Diabetes Brother Diabetes Other No significant family history Social History Smoking Status: Never smoker Tobacco Type: Cigarettes Second Hand Exposure: No; Do You Dip or Chew Tobacco: No; Hx Alcohol Use: No Hx Substance Use: No Preferred Language: Sinhala Communication Ability: Effective Visual Impairment: Limited Hearing Ability: Hard of Hearing 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: No Beliefs That Will Affect Care: None marital status: / Current Living Situation: Alone [facility] current occupational status: retired How many Children do You have: 1 Feels Safe at Home: Yes Childhood Exposure to Second-Hand Smoke: Yes Diet: Soft and regular caffeine: Yes during the past year weight has: remained stable Dental Care, Regularly: No Physical Activity Frequency: Does not Exercise Seatbelt Use: always Sunscreen Use: No Assistive Devices: Oxygen - Continuous Review of Systems Review of Systems: Denies chest; admits to mild dyspnea. Physical Exam Physical Exam: General: Alert. nontoxic. Skin: Warm, dry, Head: Atraumatic Ears, nose, mouth and throat: airway patent, high flow nasal cannula present Cardiovascular: Normal peripheral perfusion Respiratory: no respiratory distress, absent breath sounds over left lung field Gastrointestinal: Non distended Musculoskeletal: No deformity Results & Data Results & Data Vital Signs (Past 12 Hours) Vital Signs Temp Pulse Pulse Resp BP BP Pulse Ox 07/05/23 17:00 84 21 152/96 H 98 07/05/23 16:00 96 H 25 H 160/103 H 99 07/05/23 15:00 115 H 40 H 158/111 H 93 07/05/23 14:10 116 H 22 94 07/05/23 14:00 112 H 28 H 143/101 H 93 07/05/23 13:41 116 H 19 144/88 H 93 07/05/23 13:30 116 H 29 H 140/93 93 07/05/23 13:10 89 07/05/23 13:10 07/05/23 12:52 86 18 137/94 100 07/05/23 12:50 36.8 C 07/05/23 11:08 36.5 C 95 H 21 121/73 99 07/05/23 11:01 99 H 20 98 07/05/23 08:40 105 H 22 91 07/05/23 08:06 36.6 C 69 18 145/92 H 95 07/05/23 08:00 07/05/23 07:20 88 20 94 07/05/23 05:54 70 O2 Del Method O2 Flow Rate FiO2 07/05/23 17:00 07/05/23 16:00 07/05/23 15:00 07/05/23 14:10 High Flow Nasal Cannula 40 80 07/05/23 14:00 High Flow Nasal Cannula 40 80 07/05/23 13:41 High Flow Nasal Cannula 40 100 07/05/23 13:30 High Flow Nasal Cannula 40 100 07/05/23 13:10 07/05/23 13:10 High Flow Nasal Cannula 60 100 07/05/23 12:52 High Flow Nasal Cannula 40 100 07/05/23 12:50 07/05/23 11:08 Oxymask 40 07/05/23 11:01 High Flow Nasal Cannula 40 80 07/05/23 08:40 High Flow Nasal Cannula 40 100 07/05/23 08:06 BiPAP 07/05/23 08:00 High Flow Nasal Cannula 35 60 07/05/23 07:20 High Flow Nasal Cannula 35 60 07/05/23 05:54 Critical Care Results & Data Vital Signs (Past 12 Hours) Vital Signs Temp Pulse Pulse Resp BP BP Pulse Ox 07/05/23 17:00 84 21 152/96 H 98 07/05/23 16:00 96 H 25 H 160/103 H 99 07/05/23 15:00 115 H 40 H 158/111 H 93 07/05/23 14:10 116 H 22 94 07/05/23 14:00 112 H 28 H 143/101 H 93 07/05/23 13:41 116 H 19 144/88 H 93 07/05/23 13:30 116 H 29 H 140/93 93 07/05/23 13:10 89 07/05/23 13:10 07/05/23 12:52 86 18 137/94 100 07/05/23 12:50 36.8 C 07/05/23 11:08 36.5 C 95 H 21 121/73 99 07/05/23 11:01 99 H 20 98 07/05/23 08:40 105 H 22 91 07/05/23 08:06 36.6 C 69 18 145/92 H 95 07/05/23 08:00 07/05/23 07:20 88 20 94 O2 Del Method O2 Flow Rate FiO2 07/05/23 17:00 07/05/23 16:00 07/05/23 15:00 07/05/23 14:10 High Flow Nasal Cannula 40 80 07/05/23 14:00 High Flow Nasal Cannula 40 80 07/05/23 13:41 High Flow Nasal Cannula 40 100 07/05/23 13:30 High Flow Nasal Cannula 40 100 07/05/23 13:10 07/05/23 13:10 High Flow Nasal Cannula 60 100 07/05/23 12:52 High Flow Nasal Cannula 40 100 07/05/23 12:50 07/05/23 11:08 Oxymask 40 07/05/23 11:01 High Flow Nasal Cannula 40 80 07/05/23 08:40 High Flow Nasal Cannula 40 100 07/05/23 08:06 BiPAP 07/05/23 08:00 High Flow Nasal Cannula 35 60 07/05/23 07:20 High Flow Nasal Cannula 35 60 Lab & Micro Results (Past 24 Hours) RBC 4.04 M/uL (4.70-6.10) L 07/05/23 WBC 10.17 K/ul (4.8-10.8) 07/05/23 Hgb 12.7 g/dl (14.0-18.0) L 07/05/23 Hct 38.7 % (42.0-52.0) L 07/05/23 MCV 95.8 fL (80.0-100.0) 07/05/23 MCH 31.4 pg (25.0-34.0) 07/05/23 MCHC 32.8 g/dL (32.0-36.0) 07/05/23 RDW Standard Deviation 45.3 fL (36.4-46.3) 07/05/23 RDW Coefficient of Variation 12.9 % (11.5-14.5) 07/05/23 Plt Count 290 K/uL (130-400) 07/05/23 MPV 9.5 fL (9.4-12.4) 07/05/23 Na 145 mmol/L (136-145) 07/05/23 K 3.8 mmol/L (3.5-5.1) 07/05/23 Cl 103 mmol/L (98-107) 07/05/23 CO2 37 mmol/L (21-32) H 07/05/23 Anion Gap 5 (3-11) 07/05/23 BUN 30 mg/dl (6-23) H 07/05/23 Creatinine 0.59 mg/dl (0.6-1.4) L 07/05/23 Estimated GFR ( Amer) 120.6 ml/min 07/05/23 Estimated GFR (Non-Af Amer) 104.0 ml/min 07/05/23 BUN/Creatinine Ratio 50.8 (10-20) H 07/05/23 Glu 134 mg/dl (70-99(Fasting)) H 07/05/23 Ca 7.5 mg/dl (8.6-10.3) L 07/05/23 Phosphorus Level 4.1 mg/dl (2.5-4.9) 07/05/23 Mg 2.2 mg/dl (1.7-2.4) 07/05/23 06:35 Calcium Level 7.5 mg/dl (8.6-10.3) L 07/05/23 06:35 Venous Blood pH 7.41 (7.36-7.41) 07/05/23 08:16 Venous Blood Partial Pressure CO2 66 mmHg (38-50) H 07/05/23 08 :16 Venous Blood Partial Pressure O2 26 mmHg 07/05/23 08:16 Venous Blood HCO3 42 mmol/L 07/05/23 08:16 Venous Blood Base Excess 14.0 mEq/L 07/05/23 08:16 Venous Blood Oxygen Saturation < 60.0 % 07/05/23 08:16 Microbiology 07/01/23 12:30 Fungal Smear - Final Bronch Wash,Left Lower Lobe Fungal Culture - Preliminary Magalie albicans/dubliniensis 06/29/23 19:14 Aerobic Blood Culture - Final Blood No growth in Aerobic bottle after 5 days. Anaerobic Blood Culture - Final No growth in Anaerobic bottle after 5 days. Diagnostic Findings (Past 24 Hours) Chest X-Ray 07/05/23 08:12 XR chest 1V portable HISTORY: Respiratory failure, worsening hypoxia COMPARISON: Chest 07/04/2023. FINDINGS: Near complete opacification of the left hemithorax which has slightly progressed. Stable left mediastinal shift. Right basilar linear densities persist and favor subsegmental atelectasis. Calcifications within the aortic knob. Levoscoliosis of the cervicothoracic spine again noted. There is cervical spinal fusion hardware. A small left pleural effusion persists. IMPRESSION: Near complete opacification of the left hemithorax which has slightly progressed. A left pleural effusion persists. ACT 112: Negative or not required by law. Electronically signed by: Cash Santoro M.D. 07/05/2023 9:03 AM I & O Totals 24 Hours 07/04/23 07/05/23 07/06/23 06:59 06:59 06:59 Intake Total 765 / 765 500 / 500 325 / 325 Output Total 1504 / 1504 403 / 403 675 / 675 Balance -739 / -739 97 / 97 -350 / -350 Cumulative 06/29/23 17:51 thru 07/05/23 17:20 Intake Total 9060 Output Total 5332 Balance 3728 RT Ventilator Mngmt (Last Documented) Ventilator Ordered Settings Respiratory Rate 21 07/05/23 17:00 Fraction of Inspired Oxygen [ 70 07/02/23 03 :25 Resting] Fraction of Inspired Oxygen 80 07/05/23 14:10 Ventilator - PT Measurements Respiratory Rate 21 Coding Level of Care Code 83946 CRITICAL CARE 1ST 30-74M Additional Critical Care Time Additional 30min Critical Care Time: Yes - [id number] Diagnoses Acute on chronic respiratory failure with hypoxia and hypercapnia J96.21; J96.22 Pneumonia J18.9 Laterality: unspecified laterality Lung location: unspecified part of lung Pneumonia type: due to unspecified organism Influenza due to identified 2009 H1N1 influenza virus with pneumonia J10.00 Chronic pulmonary aspiration T17.908A Vocal cord weakness J38.00 Chronically elevated hemidiaphragm J98.6 Additional Codes Critical Care Time - Additional 30min Critical Care Time: Yes - ([id number]) (2) Pneumonia Laterality: unspecified laterality Lung location: unspecified part of lung Pneumonia type: due to unspecified organism Qualified Code(s): J18.9 - Pneumonia, unspecified organism
[2023-07-05] MEDS: ATORVASTATIN 10 MG TAB PO SCH (21:12)
[2023-07-05] MEDS: FAMOTIDINE 20 MG TAB PO SCH (21:13)
[2023-07-05] MEDS: MIRTAZAPINE TAB 15 MG TAB PO SCH (21:13)
[2023-07-05] MEDS: MELATONIN 3 MG TAB PO SCH (21:19)
--- NOTE | 2023-07-05 23:06 | Palliative Care Consultation ---
Date of Consultation July 05, 2023 Assessment & Plan (1) Dyspnea and respiratory abnormalities: s/p intubation and bronch (2) Airway clearance impairment: s/p bronch to facilitate airway clearance (3) Weakness generalized: (4) Vocal cord paralysis: (5) Elevated hemidiaphragm: (6) Palliative care by specialist: Telephonic meeting with pt sonEdie Junior. Provided overview of Palliative Medicine, a subspecialty that provides specialized medical care for people living with a serious illness by offering a focus on quality of life. Palliative Medicine is often conflated with hospice: I advised patient/family that Palliative and hospice can be partners but we are not the same. It is important to understand the difference so that we may be informed, and not afraid. Palliative Medicine works to improve QOL through reduction of symptom burden/more control over their illness, for both the patient and family. Palliative medicine clinicians are board certified, specially-trained and another member of the patient's medical care team. We often provide an extra layer of support because our care is based on the needs of the patient, not the prognosis; as such, it's appropriate at any age/advancing stage of a serious illness and can be provided along with curative treatment. Palliative Medicine clinicians are also trained in advanced communication methodologies, to facilitate complex discussions about advanced illness planning, which are needed to help assure that the treatment choices match the patient's goals, aka delivering Goal Concordant care. Finally, we discussed that hospice is a visiting nurse service that focuses on care delivered at the very end of life for patients with terminal illness, with life expectancy less than 6 month. (7) Discussion about advance care planning held with family member: I provided 25 min of telephonic ACP discussion re separately identifiable medical issues with son Edie Vargas for 25min. Edie Vargas participated in this discussion voluntarily and with his consent, the discussion continued. We reviewed and discussed patent's know prior wishes/explanation of advance directives. Edie Vargas indicates pt was always clear "he doesn't want to exist just to exist or live on machine, he wouldn't want that and he always told me if it comes to that, just let him go." We spoke about concerns re potential to liberate from vent given his underlying resp complications and son verbalized understanding. He acknowledges the intubation and bronchoscopy are to hopefully help pt turn the corner and "get better" but son is also aware pt may not improve. He is hoping pt can recover to where he can provide more direct guidance about his wishes. We discussed code status and Edie Vargas stated "He should be a DNR" and I advised pt is currently listed full code, there is no prior POLST or AD form on file. Edie Vargas notes he does not have record of prior ADs and apart from his prior discussions with pt, had not completed any Living will paperwork or a POLST. We spoke about CPR outcomes: Only about 10% of patients who have [id number] sudden cardiac arrest survive to hospital discharge, with many survivors having neurologic impairment. This rate is even lower among patients with serious coexisting conditions, ie chance of survival to hospital discharge for in- hospital CPR in older people is low to moderate (15%) and decreases with age, comorbidities, performance status and frailty: for pts > 70 yo, more than half of the patients who initially survived resuscitation in the hospital before hospital discharge. The pooled survival to discharge after in-hospital CPR was 18% for patients between 70 and 79 years old, 15% for patients between 80 and 89 years old and 11% for patients of 90 years and older. (Sundeep SHEEHANY, Tan LJ, Juan F, et al. Trends in short- and long-term survival among iri-zl-monnczyz cardiac arrest patients alive at hospital arrival. Circulation 2014;130:1883- 1890. AND Fer C, Sakina T, Chelsea R, et al. Performance of clinical risk scores to predict mortality and neurological outcome in cardiac arrest patients. Resuscitation 2019;136:21-29.) Edie Vargas states he would want to further discuss code status with . While he knows his father would not want to linger on machines, he wishes his father was awake and alert enough to make the no code decision that Edie Vargas believes is what he would want, but Edie Vargas does not want to have to make that decision at this moment. Surrogate decision making was reviewed with Edie Vargas, and since pt has no POLST or AD on file, [place] for SDM applies and Edie Vargas would be designated SDM. There are not other siblings, there is no active spouse. We reiterated the goals is to clarify and determine patients medical treatment wishes based on their values and preferences, and to assure the care we deliver is aligned with what pt would want for himself. Edie Vargas was clear that if pt declines, cannot liberate from vent or worsens in spite of escalated life support therapies, then he is very sure pt and family would desire a transition to comfort care with compassionate extubation. Edie Vargas notes this was something they had spoken about in the past, with pt being very clear that if he was only going to live on machines, that was not living to him and not QOL, he would want to have a peaceful EOL at that junction. Edie Vargas states he and his will be here tomorrow to visit. He is agreeable to a follow up ACP in 24 hr , we agreed to 11am in ICU. Plan * Elderly male admitted from [facility] with resp failure d/t Left PNA and influenza. Worsening resp dynamics. Impaired hemidiaphragm with paralysis, impaired gas exchange and mucus clearance. If intubated would more than likely require trach and vent SNF for LTC. Goals of care are unclear, pt is not decisional. He has a long standing hx ETOH abuse, opioid dependency (halfway staff advised care mgt he asks for oxy every 4h ATC) and likely dementia from ETOH + vascular origins. * Pt is now intubated and sedated, s/p bronch. He would not want trach, vent SNF per ACP discussion with son , see above. * Family meeting follow up tomorrow 11am,s ee ACP discussion with son EDIE HUNT JR [phone] documented above. * Care mgt should clarify if there is there any prior documentation of pt known wishes at [facility], has there been documented ACP discussions at [facility] prior to this admission etc? Thank you for allowing us to participate in the ongoing care of this patient. Please don't hesitate to call or page with any additional concerns. Dr. Elsy Parikh DNP Director, Palliative Care History of Present Illness Reason for Consultation: [facility] Attending Physician: David Townsend MD History of Present Illness 67yo male from SNF with Left PNA, Influenza admitted 06/29/23 PMH: vocal cord paralysis/weakness, hypercapnic respiratory failure, elevated LEFT-sided hemidiaphragm, chronic aspiration events, COPD, CAP, hypertension, cervical spinal stenosis with myelopathy, chronic pain syndrome, opioid dependence, alcohol abuse, ETOH associated +/- vascular dementia spine stenosis, hyperlipidemia and neuropathy Resp worsening since 06/29/23 admission with rising O2 needs pt does not have capacity, likely d/t encephalopathy and dementia Son is listed as POA and there is a sister in [place] expressing interest to [facility] team to be involved and has indicated there is an estrangement however pt did identify son as decision maker, son has been engaged in prior discussion and SNF has same information Pt is now at brink of possibly needing intubation and unlikely to liberate due to above PMH, therefore would warrant trach and then placement to vent SNF for LTC His goals of care are unknown Son was not reachable for CCM Palliative Medicine has been consulted to assist with family discussions to clarify and establish the goals of care. Son, Edie Hunt Jr, is surrogate decision maker; he lives in [place]. Allergies Allergy/AdvReac Type Severity Reaction Status Date / Time erythromycin base Allergy Severe DIFFICULTY Verified 06/29/23 18:21 BREATHING, THROAT SWELLS, RASH Home Medications Medication Instructions Recorded Confirmed Type acetaminophen 500 mg tablet 1,000 mg (2 x 500 mg) PO TID #180 02/26/21 06/29/23 Rx (Tylenol Extra Strength) tabs bisacodyl 10 mg rectal suppository 10 mg GA DAILY PRN constipation 02/26/21 06/29/23 Rx #12 ea calcium 600 mg-D3 800 unit-mag11 1 tab PO BID #60 tabs 02/26/21 06/29/23 Rx 50 hk-jlvd-uptgwo-nati-s.borat tablet (Caltrate 600-D Plus Minerals) cetirizine 10 mg tablet 10 mg PO DAILY PRN allergy 02/26/21 06/29/23 Rx symptoms #10 tabs melatonin 3 mg tablet 3 mg PO HS #30 tabs 02/26/21 06/29/23 Rx thiamine HCl (vitamin B1) 100 mg 100 mg PO QAM #30 tabs 02/26/21 06/29/23 Rx tablet (Vitamin B-1) docusate sodium 100 mg capsule 100 mg PO BID #60 caps 07/28/22 06/29/23 Rx sennosides 8.6 mg-docusate sodium 2 tab-cap (2 x 8.6-50 mg) PO BID 07/28/22 06/29/23 Rx 50 mg capsule (Senna Plus) #120 caps celecoxib 100 mg capsule (Celebrex) 100 mg PO DAILY #30 caps 01/23/23 06/29/23 Rx famotidine 20 mg tablet 20 mg PO DAILY #30 tabs 01/23/23 06/29/23 Rx prednisone 5 mg tablet 5 mg PO Q OTHER DAY #15 tabs 02/09/23 06/29/23 Rx buspirone 15 mg tablet 15 mg PO BID #60 tabs 03/23/23 06/29/23 Rx ondansetron 4 mg disintegrating 4 mg PO Q4H PRN nausea and 03/24/23 06/29/23 Rx tablet vomiting #10 tabs bupropion HCl 150 mg 24 hr tablet, 150 mg PO QAM #30 tabs 05/04/23 06/29/23 Rx extended release (Wellbutrin XL) lorazepam 0.5 mg tablet (Ativan) 0.5 mg PO Q6H anxiety #120 tabs 05/08/23 06/29/23 Rx gabapentin 100 mg capsule 100 mg PO TID #90 caps 06/10/23 06/29/23 Rx oxycodone 15 mg tablet 15 mg PO Q4H PRN pain #120 tabs 06/10/23 06/29/23 Rx polyethylene glycol 3350 17 17 g PO DAILY PRN Constipation 06/10/23 06/29/23 History gram/dose oral powder (Miralax) pramoxine 1 % topical cream 1 applic topical DAILY PRN Skin 06/10/23 06/29/23 History (CeraVe Itch Relief) Irritation gabapentin 800 mg tablet 800 mg PO TID #90 tabs 06/15/23 06/29/23 Rx mirtazapine 30 mg tablet 30 mg PO HS #30 tabs 06/15/23 06/29/23 Rx atorvastatin 10 mg tablet 10 mg PO HS 06/29/23 06/29/23 History Patient History Medical History History of recent fall 02/2020 treated at [facility]. currently at [facility] in [place], [place] Osteoarthritis Degenerative disc disease Chronic back pain Hypertension Diverticular disease Venous reflux Diagnosed 10/2018 during admission for what was initially thought to be cellulitis. US showed venous reflux, and cellulitis-appearing symptoms felt 2/2 "waxing/waning symptoms depending on how long he has had his feet down." Stenosis of cervical spine with myelopathy Alcohol withdrawal Suicidal ideation Chronic, continuous use of opioids Spinal stenosis of lumbar region Hypoxia Pneumonia ~2018 Anxiety Arthritis Hearing difficulty Hyperlipidemia Stomach ulcer hx Neuropathy bilateral legs Surgical History Hx of umbilical hernia repair History of right inguinal hernia repair History of left inguinal hernia repair Foreign body of right eye removal of a small piece of metal about ~1979 History of tonsillectomy History of bowel resection r/t diverticulitis History of colonoscopy History of appendectomy History of esophagogastroduodenoscopy (EGD) History of oral surgery all teeth removed Family History Mother Anxiety Depression Cardiac disorder Hypertension Diabetes Mesothelioma Father Mesothelioma Diabetes Brother Diabetes Other No significant family history Social History Smoking Status: Never smoker Tobacco Type: Cigarettes Second Hand Exposure: No; Do You Dip or Chew Tobacco: No; Hx Alcohol Use: No Hx Substance Use: No Preferred Language: Italian Communication Ability: Effective Visual Impairment: Limited Hearing Ability: Hard of Hearing 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: No Beliefs That Will Affect Care: None marital status: / Current Living Situation: Alone Current Living Situation Comment: [facility] current occupational status: retired How many Children do You have: 1 Feels Safe at Home: Yes Childhood Exposure to Second-Hand Smoke: Yes Diet: Soft and regular caffeine: Yes during the past year weight has: remained stable Dental Care, Regularly: No Physical Activity Frequency: Does not Exercise Seatbelt Use: always Sunscreen Use: No Assistive Devices: Oxygen - Continuous Review of Systems Review of Systems: Unobtainable due to endotracheal tube and Unobtainable due to reduced consciousness Physical Exam Constitutional: + ill appearing, + thin, + altered menta l status, + frail appearing, + diaphoretic, + mechanically ventilated and + underweight bitemp wasting Eyes: + eyes dysmorphic ENMT: ETT to vent +NG tube feeding Neck: No Stridor Respiratory: coarse rhonchi diminished left lower lung Cardiovascular: Rate/Rhythm: regular rate Gastrointestinal (Abdomen): soft distension, no grimacing with palpation, BS+ Musculoskeletal: generalized weakness Skin: pale, diaphoretic Neurologic: sedated Genitourinary: +Harris Results & Data Vital Signs (Past 12 Hours) Vital Signs Temp Pulse Pulse Resp BP BP Pulse Ox 07/05/23 22:00 83 28 H 92 07/05/23 21:00 100 H 30 H 139/102 H 93 07/05/23 20:00 89 25 H 95 07/05/23 19:50 07/05/23 19:49 37.4 C 07/05/23 19:37 102 H 27 H 152/115 H 95 07/05/23 19:00 81 20 155/96 H 94 07/05/23 18:00 100 H 32 H 152/101 H 95 07/05/23 17:00 84 21 152/96 H 98 07/05/23 16:00 96 H 25 H 160/103 H 99 07/05/23 15:00 115 H 40 H 158/111 H 93 07/05/23 14:10 116 H 22 94 07/05/23 14:00 112 H 28 H 143/101 H 93 07/05/23 13:41 116 H 19 144/88 H 93 07/05/23 13:30 116 H 29 H 140/93 93 07/05/23 13:10 89 07/05/23 13:10 07/05/23 12:52 86 18 137/94 100 07/05/23 12:50 36.8 C 07/05/23 11:08 36.5 C 95 H 21 121/73 99 O2 Del Method O2 Flow Rate FiO2 07/05/23 22:00 07/05/23 21:00 07/05/23 20:00 07/05/23 19:50 Other 70 07/05/23 19:49 07/05/23 19:37 07/05/23 19:00 07/05/23 18:00 07/05/23 17:00 07/05/23 16:00 07/05/23 15:00 07/05/23 14:10 High Flow Nasal Cannula 40 80 07/05/23 14:00 High Flow Nasal Cannula 40 80 07/05/23 13:41 High Flow Nasal Cannula 40 100 07/05/23 13:30 High Flow Nasal Cannula 40 100 07/05/23 13:10 07/05/23 13:10 High Flow Nasal Cannula 60 100 07/05/23 12:52 High Flow Nasal Cannula 40 100 07/05/23 12:50 07/05/23 11:08 Oxymask 40 Laboratory Results data reviewed Diagnostic Findings data reviewed PG Care Time/CCT Total # of Minutes Spent Total Time Spent: 85 Total Time Spent with Patient: Total time spent is greater than 50% in coordination of care (as documented) at patient's floor/unit and/or counseling patient: I spent 85 minutes overall addressing this case: 15 min in medical data review/discussion with referring provi ruben(s) and/or preparation for the visit 20 min in direct interaction with the patient/exam 25 min in Advance Care Planning/Goals of Care discussions as detailed above in note (must be >16min) 10 min in subsequent review and synthesis of assessment and plan 15 min communicating with other providers regarding the patient's case: [place] [address] IN/OBS CONSULT LVL 5,80M Patient Type New History Comprehensive Exam Comprehensive Medical Decision Making High Complexity Diagnoses Dyspnea and respiratory abnormalities R06.00; R06.89 Airway clearance impairment R06.89 Weakness generalized R53.1 Vocal cord paralysis J38.00 Elevated hemidiaphragm J98.6 Palliative care by specialist Z51.5 Discussion about advance care planning held with family member Z71.0
[2023-07-06] MEDS: LORazepam 0.5 MG TAB PO SCH ×2 (02:21→08:00)
[2023-07-06] MEDS: PIPERACILLIN/TAZOBACTAM 4.5 GM in DEXTROSE 5% MINI-B 100 ML IV SCH (04:29)
[2023-07-06] MEDS: oxyCODONE HCL IR 5 MG TAB (IMMEDIATE RELEASE) PO PRN ×2 (04:32→08:10)
[2023-07-06 05:29] LABS: Hematocrit (blood only) 41.8 % (42.0-52.0); Hemoglobin 13.7 g/dl (14.0-18.0); Mean Corpuscular Hemoglobin 31.4 pg (25.0-34.0); Mean Corpuscular Hgb Conc 32.8 g/dL (32.0-36.0); Mean Corpuscular Volume 95.7 fL (80.0-100.0); Mean Platelet Volume 9.5 fL (9.4-12.4); Platelet Count 282 K/uL (130-400); RDW Coefficient of Variation 12.9 % (11.5-14.5); RDW Standard Deviation 45.7 fL (36.4-46.3); Red Blood Count 4.37 M/uL (4.70-6.10); White Blood Count 10.39 K/ul (4.8-10.8)
[2023-07-06 05:48] LABS: Albumin Level 3.6 gm/dl (3.4-5.0); BUN Creatinine Ratio 43.8 (10-20); Bilirubin Direct 0.1 mg/dl (0-0.2); Bilirubin,Total 0.5 mg/dl (0.2-1.0); Calcium 8.2 mg/dl (8.6-10.3); Creatinine Clr Calc Pharmacy 89.9 ml/min; Est GFR (African American) 110.5 ml/min; Est GFR (Non-African American) 95.3 ml/min; Magnesium 2.4 mg/dl (1.7-2.4); Potassium 4.6 mmol/L (3.5-5.1); Total Protein 6.3 gm/dl (6.0-8.3)
[2023-07-06 06:02] LABS: Basophils # (auto) 0.02 K/uL (0.00-0.20); Basophils % (auto) 0.2 %; Immature Granulocytes # (auto) 0.32 K/uL (0.01-0.20); Immature Granulocytes % (auto) 3.1 %; Lymphocytes # (auto) 0.26 K/uL (1.20-3.40); Lymphocytes % (auto) 2.5 %; Monocytes # (auto) 0.37 K/uL (0.11-0.59); Monocytes % (auto) 3.6 %; Neutrophils # (auto) 9.42 K/uL (1.40-6.50); Neutrophils % (auto) 90.6 %
[2023-07-06] MEDS: ALBUT/IPRATROP 3MG/0.5MG NEB 3 ML VIAL NEB SCH ×4 (07:28→20:06)
[2023-07-06] MEDS: SODIUM CHLOR 7% 4 ML NEB NEB SCH (07:28)
[2023-07-06 07:52] LABS: Fibrinogen 362 mg/dl (184-400); INR 2.9 (0.9-1.1); Partial Thromboplastin Ratio 1.3; Partial Thromboplastin Time 37 Seconds (21-31); Prothrombin Time 29.8 Seconds (9.0-12.0)
[2023-07-06] MEDS: DOCUSATE SODIUM 100 MG CAP PO SCH ×2 (07:53→20:17)
[2023-07-06] MEDS: CALCIUM 600MG + VIT D 400 IU TAB PO SCH ×2 (07:53→20:17)
[2023-07-06] MEDS: DOCUSATE SODIUM/SENNA 50/8.6MG TAB PO SCH ×2 (07:53→20:19)
[2023-07-06] MEDS: SUCRALFATE 1 GM/10 ML UDC PO SCH ×2 (07:58→09:27)
[2023-07-06] MEDS: ENOXAPARIN INJ 40 MG/0.4 ML SYR SQ SCH (08:00)
[2023-07-06] MEDS: methylPREDNISolone 30 MG in SYRINGE 0 ML IV SCH (08:00)
[2023-07-06] MEDS: PANTOprazole 40 MG in SYRINGE 0 ML IV SCH ×2 (08:00→20:18)
[2023-07-06] MEDS: ACETAMINOPHEN 500 MG TAB PO SCH (08:00)
[2023-07-06] MEDS: CETIRIZINE HCL 10 MG TABLET PO PRN (08:01)
[2023-07-06] MEDS: busPIRone 15 MG TAB PO SCH ×2 (08:01→20:18)
[2023-07-06] MEDS: GABAPENTIN 800 MG TAB PO SCH ×3 (08:01→20:16)
[2023-07-06] MEDS: THIAMINE HCL 100 MG TAB PO SCH (08:02)
[2023-07-06] MEDS: GABAPENTIN 100 MG CAP PO SCH ×3 (08:02→20:17)
[2023-07-06] MEDS: guaiFENesin 600 MG TABCR PO SCH ×2 (08:02→20:16)
[2023-07-06] MEDS: buPROPion XL 150 MG TABCR PO SCH (08:02)
[2023-07-06] MEDS: FLUCONAZOLE 100 MG TAB PO SCH (08:02)
[2023-07-06] MEDS: DOXYCYCLINE HYCLATE 100 MG in DEXTROSE 5% MINI-B 100 ML IV SCH (08:15)
[2023-07-06] MEDS ORDERED: STAT IV Infusion **Titration per Protocol STA ×2 (08:22→09:20)
--- NOTE | 2023-07-06 08:30 | Critical Care Progress Note ---
Date of Service July 06, 2023 Assessment & Plan (1) Pneumonia: (2) Acute on chronic respiratory failure with hypoxia and hypercapnia: (3) Influenza due to identified 2009 H1N1 influenza virus with pneumonia: (4) Chronic pulmonary aspiration: (5) Vocal cord weakness: (6) Chronically elevated hemidiaphragm: Plan Impression: 67-year-old male with a history of chronically elevated left hemidiaphragm and vocal cord paralysis with probable recurrent aspiration admitted with left-sided weakness and cough. Placed on BiPAP. Dense infiltrate in the left and underwent bronchoscopy with removal of mucous plug. He unfortunately continued to fail despite aggressive pulmonary toilet and broad- spectrum antibiotics and was transferred to the ICU 07/05/2023 for consideration of repeat bronchoscopy and intubation. Discussed with son and patient this morning and they are agreeable to proceed. Recommendations: 1. Neurologic: Once the patient is intubated, he will be sedated with propofol. Will continue sedation while on the mechanical ventilator. Continue the patient's home dose of gabapentin and Remeron as well as BuSpar. 2. Respiratory: Patient has a severe hypoxemic respiratory failure. This is largely due to atelectasis of the left lung with concomitant elevation of the hemidiaphragm. May be secondary to recurrent aspiration events given his vocal cord paralysis. He has failed conservative measures for pulmonary toilet and at this point time I would recommend proceeding with intubation mechanical ventilation and bronchoscopy to see if we can open up that left lung. The patient is agreeable but defers to his son and sister. I attempted to reach the sister but got no answer. I was able to reach the son who agreed with proceeding with intubation and bronchoscopy. This will be performed and we will follow-up chest x-ray. Hopefully if the lung can remain up, we can wean the patient off of the mechanical ventilator. If not, discussions regarding tracheostomy may be appropriate although the patient is not enthusiastic about this option. Influenza may be contributing as well. He does not appear bronchospastic currently and prior PFTs have not demonstrated significant emphysema so I think stopping steroids at this point time is reasonable. Continue nebulized bronchodilators as needed 3. Cardiovascular: Patient is hemodynamically stable at this point time. I suspect his tachycardia is likely reactive to his underlying pulmonary process. Will continue to follow at this point in time. 4. GI: Once the patient is intubated, will place nasogastric tube and ask for dietary assistance and initiation of enteral feeding. Discontinue scheduled Tylenol. Continue bowel protocol 5. Renal: No acute issues. Initiate ICU electrolyte replacement protocol 6. Endocrine: Glycemic control per protocol 7. ID: Influenza H1 N1 infection. The patient has completed 5 days of Tamiflu. He is completed 6 days of doxycycline and 7 days of Zosyn as well as 5 days of vancomycin, 2 days of cefepime, and 1 day of Rocephin. I am not convinced that there is a persistent bacterial infection process ongoing. Antibiotics will be discontinued. Will obtain cultures from the lower respiratory tree to guide additional therapy. 8. Heme-onc: INR increased to 2.9 today for reasons that are not entirely clear. He does not exhibit active bleeding. Will hold anticoagulation and repeat coag panel later this evening. Patient is critically ill at this point in time with significant possibility of clinical decline and/or . A total of 76 minutes in critical care time was spent in evaluation management coordinating care of this patient exclusive from procedures. This includes discussion with bedside critical care nurse and on multidisciplinary rounds. Admission and Anticipated Discharge Date Admission Date: June 29, 2023 Subjective Patient seen and examined. EMR reviewed. Discussed with off going pu lmonologist and tourist adviser and with bedside critical care nurse and on multidisciplinary rounds. Reviewed with overnight critical care PEDRO. Patient is tachypneic and tachycardic this morning. His cough is weak and ineffectual. He is not brought up any significant phlegm. He remains hemodynamically stable otherwise. He is not having any chest pain or palpitations. He does not report any significant wheezing. Review of Systems Review of Systems: All systems reviewed & are unremarkable except as noted in Subjective Physical Exam Constitutional: Patient is slightly tachypneic. He is on high flow oxygen. Neck: trachea midline, no thyromegaly Respiratory: + labored breathing Auscultation: no crackles and no wheezes Decreased breath sounds at the bilateral bases, left greater than right Cardiovascular: RRR, no murmur, no edema Gastrointestinal (Abdomen): normal bowel sounds, soft, nontender, no hepatosplenomegaly Musculoskeletal: Extremities: extremities normal to inspection Skin: no rashes, warm and dry Neurologic: Nonfocal exam Lymphatic: no cervical lymphadenopathy Results & Data Results & Data Vital Signs (Past 12 Hours) Vital Signs Temp Pulse Pulse Pulse Resp BP Pulse Ox 07/06/23 07:28 77 22 93 07/06/23 05:19 102 H 24 88 L 07/06/23 04:11 36.4 C L 07/06/23 04:00 74 23 94 07/06/23 04:00 118/79 07/06/23 03:49 76 16 97 07/06/23 03:00 73 22 94 07/06/23 03:00 125/78 07/06/23 02:00 80 24 97 07/06/23 02:00 123/79 07/06/23 02:00 67 07/06/23 01:05 114/83 07/06/23 01:05 97 07/06/23 01:03 98 07/06/23 01:01 96 07/06/23 01:00 96 07/06/23 00:42 36.8 C 07/06/23 00:26 80 16 95 07/06/23 00:01 65 21 90 07/06/23 00:01 126/83 07/06/23 00:00 69 21 91 07/05/23 23:00 70 28 H 92 07/05/23 22:00 83 28 H 92 07/05/23 21:00 100 H 30 H 139/102 H 93 O2 Del Method O2 Flow Rate FiO2 07/06/23 07:28 High Flow Nasal Cannula 55 100 07/06/23 05:19 Oxymask, High Flow Nasal Cannula 55 100 07/06/23 04:11 07/06/23 04:00 07/06/23 04:00 07/06/23 03:49 50 07/06/23 03:00 07/06/23 03:00 07/06/23 02:00 07/06/23 02:00 07/06/23 02:00 07/06/23 01:05 07/06/23 01:05 07/06/23 01:03 07/06/23 01:01 07/06/23 01:00 07/06/23 00:42 07/06/23 00:26 70 07/06/23 00:01 07/06/23 00:01 07/06/23 00:00 07/05/23 23:00 07/05/23 22:00 07/05/23 21:00 Critical Care Results & Data Vital Signs (Past 12 Hours) Vital Signs Temp Pulse Pulse Pulse Resp BP Pulse Ox 07/06/23 07:28 77 22 93 07/06/23 05:19 102 H 24 88 L 07/06/23 04:11 36.4 C L 07/06/23 04:00 74 23 94 07/06/23 04:00 118/79 07/06/23 03:49 76 16 97 07/06/23 03:00 73 22 94 07/06/23 03:00 125/78 07/06/23 02:00 80 24 97 07/06/23 02:00 123/79 07/06/23 02:00 67 07/06/23 01:05 114/83 07/06/23 01:05 97 07/06/23 01:03 98 07/06/23 01:01 96 07/06/23 01:00 96 07/06/23 00:42 36.8 C 07/06/23 00:26 80 16 95 07/06/23 00:01 65 21 90 07/06/23 00:01 126/83 07/06/23 00:00 69 21 91 07/05/23 23:00 70 28 H 92 07/05/23 22:00 83 28 H 92 07/05/23 21:00 100 H 30 H 139/102 H 93 O2 Del Method O2 Flow Rate FiO2 07/06/23 07:28 High Flow Nasal Cannula 55 100 07/06/23 05:19 Oxymask, High Flow Nasal Cannula 55 100 07/06/23 04:11 07/06/23 04:00 07/06/23 04:00 07/06/23 03:49 50 07/06/23 03:00 07/06/23 03:00 07/06/23 02:00 07/06/23 02:00 07/06/23 02:00 07/06/23 01:05 07/06/23 01:05 07/06/23 01:03 07/06/23 01:01 07/06/23 01:00 07/06/23 00:42 07/06/23 00:26 70 07/06/23 00:01 07/06/23 00:01 07/06/23 00:00 07/05/23 23:00 07/05/23 22:00 07/05/23 21:00 Lab & Micro Results (Past 24 Hours) RBC 4.37 M/uL (4.70-6.10) L 07/06/23 WBC 10.39 K/ul (4.8-10.8) 07/06/23 Hgb 13.7 g/dl (14.0-18.0) L 07/06/23 Hct 41.8 % (42.0-52.0) L 07/06/23 MCV 95.7 fL (80.0-100.0) 07/06/23 MCH 31.4 pg (25.0-34.0) 07/06/23 MCHC 32.8 g/dL (32.0-36.0) 07/06/23 RDW Standard Deviation 45.7 fL (36.4-46.3) 07/06/23 RDW Coefficient of Variation 12.9 % (11.5-14.5) 07/06/23 Plt Count 282 K/uL (130-400) 07/06/23 MPV 9.5 fL (9.4-12.4) 07/06/23 Neutrophils (%) (Auto) 90.6 % 07/06/23 Lymphocytes (%) (Auto) 2.5 % 07/06/23 Monocytes # (Auto) 0.37 K/uL (0.11-0.59) 07/06/23 Eosinophils # (Auto) 0.00 K/uL (0.00-0.50) 07/06/23 Immature Granulocyte % (Auto) 3.1 % 07/06/23 Neutrophils # (Auto) 9.42 K/uL (1.40-6.50) H 07/06/23 Lymphocytes # (Auto) 0.26 K/uL (1.20-3.40) L 07/06/23 Monocytes # (Auto) 0.37 K/uL (0.11-0.59) 07/06/23 Eosinophils # (Auto) 0.00 K/uL (0.00-0.50) 07/06/23 Basophils # (Auto) 0.02 K/uL (0.00-0.20) 07/06/23 Immature Granulocyte # (Auto) 0.32 K/uL (0.01-0.20) H 07/06 Na 144 mmol/L (136-145) 07/06/23 K 4.6 mmol/L (3.5-5.1) 07/06/23 Cl 101 mmol/L (98-107) 07/06/23 CO2 37 mmol/L (21-32) H 07/06/23 Anion Gap 6 (3-11) 07/06/23 BUN 32 mg/dl (6-23) H 07/06/23 Creatinine 0.73 mg/dl (0.6-1.4) 07/06/23 Estimated GFR ( Amer) 110.5 ml/min 07/06/23 Estimated GFR (Non-Af Amer) 95.3 ml/min 07/06/23 BUN/Creatinine Ratio 43.8 (10-20) H 07/06/23 Glu 130 mg/dl (70-99(Fasting)) H 07/06/23 Ca 8.2 mg/dl (8.6-10.3) L 07/06/23 Total Bilirubin 0.5 mg/dl (0.2-1.0) 07/06/23 Direct Bilirubin 0.1 mg/dl (0-0.2) 07/06/23 AST 14 U/L (13-39) 07/06/23 ALT 13 U/L (7-52) 07/06/23 Alkaline Phosphatase 37 U/L (34-104) 07/06/23 TP 6.3 gm/dl (6.0-8.3) 07/06/23 Albumin 3.6 gm/dl (3.4-5.0) 07/06/23 Mg 2.4 mg/dl (1.7-2.4) 07/06/23 04:55 Calcium Level 8.2 mg/dl (8.6-10.3) L 07/06/23 04:55 Prothromb Time International Ratio 2.9 (0.9-1.1) H 07/06/23 04 :55 Hernan Test NA 07/06/23 09:39 Microbiology 06/30/23 16:44 Aerobic Blood Culture - Final Blood No growth in Aerobic bottle after 5 days. Anaerobic Blood Culture - Final 06/30/23 16:44 Aerobic Blood Culture - Final Blood No growth in Aerobic bottle after 5 days. Anaerobic Blood Culture - Final 07/01/23 12:30 Fungal Smear - Final Bronch Wash,Left Lower Lobe Fungal Culture - Preliminary Magalie albicans/dubliniensis 06/29/23 19:14 Aerobic Blood Culture - Final Blood No growth in Aerobic bottle after 5 days. Anaerobic Blood Culture - Final No growth in Anaerobic bottle after 5 days. Diagnostic Findings (Past 24 Hours) Chest X-Ray 07/05/23 08:12 XR chest 1V portable HISTORY: Respiratory failure, worsening hypoxia COMPARISON: Chest 07/04/2023. FINDINGS: Near complete opacification of the left hemithorax which has slightly progressed. Stable left mediastinal shift. Right basilar linear densities persist and favor subsegmental atelectasis. Calcifications within the aortic knob. Levoscoliosis of the cervicothoracic spine again noted. There is cervical spinal fusion hardware. A small left pleural effusion persists. IMPRESSION: Near complete opacification of the left hemithorax which has slightly progressed. A left pleural effusion persists. ACT 112: Negative or not required by law. Electronically signed by: Cash Santoro M.D. 07/05/2023 9:03 AM I & O Totals 24 Hours 07/05/23 07/06/23 07/07/23 06:59 06:59 06:59 Intake Total 500 / 500 545 / 545 100 / 100 Output Total 403 / 403 1200 / 1200 Balance 97 / 97 -655 / -655 100 / 100 Cumulative 06/29/23 17:51 thru 07/06/23 08:15 Intake Total 9380 Output Total 5857 Balance 3523 RT Ventilator Mngmt (Last Documented) Ventilator Ordered Settings Respiratory Rate 22 07/06/23 07:28 Fraction of Inspired Oxygen [ 70 07/02/23 03:25 Resting] Fraction of Inspired Oxygen 100 07/06/23 07:28 Ventilator - PT Measurements Respiratory Rate 22 Coding Level of Care Code 37459 CRITICAL CARE EA ADD 30M Diagnoses Pneumonia J18.9 Laterality: unspecified laterality Lung location: unspecified part of lung Pneumonia type: due to unspecified organism Acute on chronic respiratory failure with hypoxia and hypercapnia J96.21; J96 .22 Influenza due to identified 2009 H1N1 influenza virus with pneumonia J10.00 Chronic pulmonary aspiration T17.908A Vocal cord weakness J38.00 Chronically elevated hemidiaphragm J98.6 (1) Pneumonia Laterality: unspecified laterality Lung location: unspecified part of lung Pneumonia type: due to unspecified organism Qualified Code(s): J18.9 - Pneumonia, unspecified organism
[2023-07-06] MEDS ORDERED: RAPID SEQUENCE INDUCTION BAG ONE (08:32)
[2023-07-06] MEDS ORDERED: PHENYLEPHRINE HCL 25 MG/250 ML NSS IV ONE (09:21)
[2023-07-06] MEDS: PHENYLEPHRINE/NSS 25 MG/250 ML BAG IV SCH ×2 (09:25→19:06)
--- NOTE | 2023-07-06 09:25 | XRay Report ---
XR chest 1V portable HISTORY: intubation COMPARISON: Chest 07/05/2023. FINDINGS: There is persistent elevation left hemidiaphragm. Therefore, the nasogastric tube is likely curled within the stomach. The endotracheal tube terminates approximately 2 cm from the dianelys. The heart remains mildly enlarged. There is improved aeration within the left lung compared the prior jayce dy. Bibasilar densities are again noted. No pneumothorax. There are cervical spinal fusion hardware. No evidence for pulmonary edema. IMPRESSION: 1. Satisfactory support line placement as described above. 2. Improved aeration within the left lung and persistent bibasilar densities. ACT 112: Negative or not required by law. Electronically signed by: Cash Santoro M.D. 07/06/2023 9:24 AM
[2023-07-06] MEDS: propofoL 1,000 MG/100 ML VIAL IV SCH ×4 (09:26→21:47)
[2023-07-06 10:30] LABS: iSTAT Art Bld Gas pCO2 Correct 36 mmHg (35-46); iSTAT Art Bld Gas pH Corrected 7.564 (7.35-7.45); iSTAT Arterial Blood Gas HCO3 32 meg/L (19-24); iSTAT Arterial Blood Gas pCO2 36 mmHg (35-46); iSTAT Arterial Blood Gas pH 7.56 (7.35-7.45); iSTAT Arterial Blood Gas pO2 402 mmHg (80-95); iSTAT Arterial Blood Gas pO2 C 401; iSTAT Carbon Dioxide 33 mmol/L (24-31); iSTAT FiO2 100 %; iSTAT Hematocrit 34 % (42-52); iSTAT Hemoglobin 11.6 g/dl (14.0-18.0); iSTAT Potassium 4.2 mmol/L (3.3-5.0); iSTAT Site Art Line; iSTAT Sodium 142 mmol/L (135-144)
--- NOTE | 2023-07-06 10:51 | Procedure Note ---
Procedure Note Date of Service July 06, 2023 Note INTUBATION PROCEDURE NOTE: Provider: Leobardo Moore MD A time-out was completed verifying correct patient, procedure, site, positioning. Patient was evaluated and required intubation for atelectasis and failure of pulmonary toilet. Sedative agent used: Etomidate 20 mg, propofol, 5 mL Paralysis agent used: None Verbal consent was obtained from the patient as well as the patient's son on the phone. The patient was prepared in the appropriate fashion. Sedation was achieved with etomidate and propofol. As the etomidate was being administered, the patient demonstrated severe bradycardia with about a 4-second pause. He was given 1 dose of atropine 1 mg which resolved the bradycardia. Video laryngoscopy was performed. Cords were easily visualized. An 8.0 endotracheal tube was placed under direct visualization to 22 cm at the lip. The stylette was removed and balloon was inflated with 10mL of air. Appropriate Colorimetric change was appreciated. Bilateral breath sounds were heard without air sounds in the abdomen. Post Intubation Chest X-ray confirms placement without pneumothorax. Coding CPT Codes Resuscitation - Resuscitation: 63017 Endotracheal Intubation, emergency ([id number]) [facility] Procedure Codes (Charges) Resuscitation Resuscitation: 91173 Endotracheal Intubation, emergency
--- NOTE | 2023-07-06 10:55 | Procedure Note ---
Procedure Note: Bronchoscopy Procedure Procedure: Fiberoptic bronchoscopy Provider: Leobardo Moore MD Consent: Verbal consent obtained from the patient and family prior to commencement of the procedure Indication: Atelectasis of the left lung Estimated blood loss: None Procedure: Patient was in the intensive care unit. He been intubated for persistent atelectasis and hypoxemic respiratory failure. Please see separate note. The fiberoptic scope was advanced through the newly placed endotracheal tube via the adapter. The tube was initially sounded and found to be approximately 1 cm above the dianelys. It was withdrawn 3 cm and secured. 2 position was verified. An inspection bronchoscopy was then conducted. The trachea had some thin mucoid secretions present which were aspirated free. The right mainstem, right upper lobe, right middle lobe, and right lower lobe were all widely patent with thin secretions present. The mucosa appeared normal. The left mainstem bronchus was widely patent. The left upper lobe and lingula takeoff were patent but demonstrated dynamic collapse with respiration. The left lower lobe bronchi was significantly collapsed. I was able to pass the scope through this and there were no obstructing or endobronchial lesions. Minimal pale mucoid secretions were identified. A mini BAL was conducted in the left lower lobe. The return was not purulent or bloody. The bronchoscope was then removed from the airways. The patient tolerated the procedure well without obvious complication. Patient was returned to the recovery room. Impression: 1. Good positioning of endotracheal tube. 2. Normal right-sided endobronchial anatomy with minimal clear secretions present. 3. Left upper lobe and left mainstem bronchus widely patent without mucous plugging. Left lower lobe bronchus was compressed but was patent. Await BAL studies [facility] [place] C[place] (Charges) Pulmonary/Thoracic Procedure 1: Pulmonary and Thoracic: 92387 Dx bronchoscopy/BAL
--- NOTE | 2023-07-06 10:57 | Procedure Note ---
Procedure Note Date of Service July 06, 2023 Note ARTERIAL LINE PROCEDURE NOTE: Procedure: Arterial Line Placement Provider: Leobardo Moore MD Indication: Monitoring on Pressors Anesthesia: None Procedure was emergent. Patient unable to provide consent due to being on the ventilator. A time-out was completed verifying correct patient, procedure, site, positioning, and implant(s) or special equipment if applicable. Allens test was performed to ensure adequate perfusion. Patients left wrist was prepped and draped in the usual sterile fashion. A 20g Arrow arterial line was introduced into the left radial artery. Catheter was threaded, and the needle was removed with appropriate blood return. Good waveform was observed. The patient tolerated the procedure well. Blood Loss: Minimal Complications: None Coding
[2023-07-06] MEDS: TUBE FEEDING WATER FLUSH OG SCH ×4 (11:56→23:30)
[2023-07-06] MEDS: fentaNYL citrate PF 100 MCG/2 ML VIAL IV PRN ×2 (11:56→19:06)
[2023-07-06] MEDS: PEPTAMEN INTENSE VHP 1.0 CAL 1,000 ML BAG OG SCH (11:57)
[2023-07-06] MEDS: ICU ELECTROLYTE REPLACEMENT PROTOCOL SCH (11:58)
[2023-07-06 12:05] LABS: iSTAT Art Bld Gas pCO2 Correct 37 mmHg (35-46); iSTAT Art Bld Gas pH Corrected 7.558 (7.35-7.45); iSTAT Arterial Blood Gas HCO3 33 meg/L (19-24); iSTAT Arterial Blood Gas pCO2 37 mmHg (35-46); iSTAT Arterial Blood Gas pH 7.56 (7.35-7.45); iSTAT Arterial Blood Gas pO2 67 mmHg (80-95); iSTAT Arterial Blood Gas pO2 C 67; iSTAT Carbon Dioxide 34 mmol/L (24-31); iSTAT FiO2 50 %; iSTAT Hematocrit 34 % (42-52); iSTAT Hemoglobin 11.6 g/dl (14.0-18.0); iSTAT Site Art Line; iSTAT Sodium 142 mmol/L (135-144)
[2023-07-06 15:14] LABS: iSTAT Art Bld Gas pCO2 Correct 45 mmHg (35-46); iSTAT Art Bld Gas pH Corrected 7.476 (7.35-7.45); iSTAT Arterial Blood Gas HCO3 33 meg/L (19-24); iSTAT Arterial Blood Gas pCO2 45 mmHg (35-46); iSTAT Arterial Blood Gas pH 7.47 (7.35-7.45); iSTAT Arterial Blood Gas pO2 80 mmHg (80-95); iSTAT Arterial Blood Gas pO2 C 79; iSTAT Carbon Dioxide 34 mmol/L (24-31); iSTAT FiO2 50 %; iSTAT Hematocrit 34 % (42-52); iSTAT Hemoglobin 11.6 g/dl (14.0-18.0); iSTAT Potassium 3.9 mmol/L (3.3-5.0); iSTAT Site Art Line; iSTAT Sodium 142 mmol/L (135-144)
[2023-07-06 20:06] LABS: INR 1.4 (0.9-1.1); Prothrombin Time 14.6 Seconds (9.0-12.0)
--- NOTE | 2023-07-06 20:09 | Hospitalist Progress Note ---
Date of Service July 06, 2023 Assessment & Plan (1) Acute on chronic respiratory failure with hypoxia and hypercapnia: Plan: acute component 2nd to fluA infection, b/l pneumonia left (severe) > right, left lung mucous plugging, COPD with exacerbation (early in the stay he had had wheezing), pulmonary edema. WORSE on 07/05/23 - CXR at that time with DEANNA again opacified much like a few days ago. Previous collapse of DEANNA was due to mucous plugging chronic component - COPD, left-sided hemidiaphragm elevation, etc s/p elective intubation and mech ventilation this am by Dr Moore s/p bronchoscopy by Dr Moore showing the following - "The right mainstem, right upper lobe, right middle lobe, and right lower lobe were all widely patent with thin secretions present. The mucosa appeared normal. The left mainstem bronchus was widely patent. The left upper lobe and lingula takeoff were patent but demonstrated dynamic collapse with respiration. The left lower lobe bronchi was significantly collapsed." Thus, no mucous plugs found. [id number] the bronchial findings are concerning in that he will be at risk of ongoing pulmonary events (recurrent mucous plugging, recurrent pneumonias, difficulty expectorating mucous, etc). Defer antibiotic management to Dr Moore and ICU team. Family meeting is planned for tomorrow with Dr Moore, Dr Parikh from palliative care team, and the pt's family to refine goals of care in light of his hospital course and his current status. (2) Pneumonia: Plan: DEANNA/LLL extensive, severe bacterial superinfection in the setting of fluA infection day #7 of broad-spectrum IV abx - cefepime then zosyn -- defer to Dr Moore whether to stop abx today or continue them has completed 6 days of atypical coverage with doxy 100mg BID s/p bronch 07/01/[address] Capps - large mucous plugging found in the left bronchial tree; plugs removed all bronch cultures negative to date - no specific bacterial pathogen identified PJP, histo, blasto, and cocci studies that were sent to [facility] lab returned negative s/p bronch today by Dr Moore - see #1 above appreciate pulmonary assistance (3) Influenza due to identified 2009 H1N1 influenza virus with pneumonia: Plan: fluA infection tamiflu 75mg BID x 5 days - course completed treat superimposed bacterial superinfection of left lung - see above (4) Sepsis: Plan: 2nd influenza A infection 2nd left-sided pneumonia see "positive blood culture" below (5) Vocal cord paralysis: Plan: history of such per records risk factor for aspiration reason for vocal cord paralysis? prior c-spine surgery? other? big risk factor for aspiration events as he cannot protect his airway (6) Positive blood culture: Plan: coag neg staph, 2/8 bottles, and alpha strep 1/8 bottles likely contaminants IV vancomycin was d/c several days ago (7) Chronically elevated hemidiaphragm: Plan: left-side etiology uncertain present for several years has seen [facility] for this as outaptient - no Rx recommended during the last office visit in 2020 (8) COPD (chronic obstructive pulmonary disease): Plan: with exacerbation but wheezing has resolved cont solumedrol 30mg IV BID - defer management to pulmonary regarding weaning chronic prednisone use - 5mg QOD - for COPD? for #9? outpatient records suggest it is for chronic pain cont nebs pulmonary consult appreciated (9) Hypertension: Plan: not on meds for such follow BPs for now (10) Myelopathy concurrent with and due to spinal stenosis of cervical region: Plan: severe 04/2020 - extensive c-spine surgery by Dr Álvarez outpatient pulmonary note from 2020 suggests that some of his vocal cord paralysis +/- hemidiaphragm elevation could be from prior surgery vs the c-spine disease itself (11) Depression: Plan: cont all home meds (12) Opioid dependence: Plan: typically on oxycodone 15mg q4h prn takes narcotics for chronic back/neck pain PDMP shows chronic prescriptions for oxy 10's just recently his dose was increased to 15mg tabs as outpatient defer narcotic management to ICU (13) Acute metabolic encephalopathy: Plan: multifactorial - influenza infection, left-sided pneumonia, hypercapnia, hypoxia, meds for sedation for bronch earlier today, etc now intubated/sedated (14) Hypophosphatemia: Plan: mild, resolved with K-phos oral replacement stopped as part of ICU protocol phos levels will be followed (15) Acid reflux: Plan: takes pepcid daily at home was having frequent reflux symptoms this entire stay before intubation cont PPI BID cont carafate qid cont usual pepcid 20mg daily CT chest showed esophageal wall thickening which is suggestive of esophagitis since he continued to complain of GERD symptoms I empirically Rx for esophageal candidiasis with diflucan given chronic prednisone use (is at risk of thrush and candidal esophagitis due to the chronic steroids) thus, started diflucan 200mg daily to cover maxwell empirically on 07/04/23; too sick for EGD of course would treat for 10 days empirically (16) DVT prophylaxis: Plan: lovenox daily Plan multiple discussions held with pt's son Jules by phone this week Admission and Anticipated Discharge Date Admission Date: June 29, 2023 Subjective events of last 24 hours noted patient was transferred to ICU yesterday for elective intubation/bronchoscopy due to ongoing left-sided pneumonia/atelectasis/collapse along with ongoing severe hypoxic resp failure this am patient was indeed intubated and bronchoscopy was performed by Dr Moore by Dr Moore's report there were no mucous plugs found on bronchoscopy in addition --> per Dr Moore's report --> "The right mainstem, right upper lobe, right middle lobe, and right lower lobe were all widely patent with thin secretions present. The mucosa appeared normal. The left mainstem bronchus was widely patent. The left upper lobe and lingula takeoff were patent but demonstrated dynamic collapse with respiration. The left lower lobe bronchi was significantly collapsed." Review of Systems Review of Systems: Unobtainable due to endotracheal tube Physical Exam Physical Exam: gen - intubated, sedated, did not open eyes to commands during my brief visit neck - no obvious JVD mouth - ETT present, enteric tube present heart - RRR, s1 s2, 1/6 FITO LSB lungs - decreased BS left lung; clear on right abd - soft NT ND BS+ ext - no edema, pulses 2+ b/l psych - sedated Results & Data Results & Data Vital Signs (Past 12 Hours) Vital Signs Temp Pulse Resp BP Pulse Ox O2 Del Method FiO2 07/06/23 19:28 Mechanical Vent 50 07/06/23 19:24 50 07/06/23 19:24 37.8 C H 07/06/23 19:00 96 H 24 116/78 95 07/06/23 18:00 60 18 95 07/06/23 18:00 117/76 01/08/24 17:00 123/79 07/06/23 17:00 60 18 95 07/06/23 17:00 38.0 C H 07/06/23 16:00 65 19 94 07/06/23 16:00 110/71 07/06/23 16:00 50 07/06/23 16:00 68 07/06/23 15:00 71 18 94 07/06/23 15:00 119/77 07/06/23 15:00 68 18 94 50 07/06/23 14:00 73 18 94 07/06/23 14:00 104/66 07/06/23 13:00 73 18 94 50 07/06/23 13:00 104/70 07/06/23 12:00 75 18 94 07/06/23 12:00 111/79 07/06/23 12:00 50 07/06/23 11:43 36.8 C 07/06/23 11:40 62 18 93 50 07/06/23 11:00 64 20 94 Mechanical Vent 50 07/06/23 11:00 121/86 07/06/23 10:00 70 20 95 07/06/23 10:00 118/87 07/06/23 09:23 Mechanical Vent 07/06/23 09:21 Mechanical Vent 07/06/23 09:18 104 H 26 H 96 07/06/23 09:18 60/48 L 07/06/23 09:16 106 H 26 H 96 07/06/23 09:16 84/41 L 07/06/23 09:08 126 H 26 H 99 100 07/06/23 08:53 130 H 26 H 99 07/06/23 08:53 96/72 L 07/06/23 08:51 147 H 18 97 07/06/23 08:51 103/79 07/06/23 08:46 131 H 12 100 07/06/23 08:46 93/78 L 07/06/23 08:42 56 L 17 88 L 07/06/23 08:42 177/119 H 07/06/23 08:40 78 14 07/06/23 08:40 152/97 H 07/06/23 08:38 79 30 H 98 07/06/23 08:38 144/113 H 07/06/23 08:31 96 H 20 Laboratory Results Laboratory Results - last hr 07/01/23 07/06/23 07/06/23 12:30 04:13 04:55 WBC 10.39 RBC 4.37 L Hgb 13.7 L POC Hgb Hct 41.8 L POC Hct MCV 95.7 MCH 31.4 MCHC 32.8 RDW Std Deviation 45.7 RDW Coeff of Stephen 12.9 Plt Count 282 MPV 9.5 Immature Gran % (Auto) 3.1 Neut % (Auto) 90.6 Lymph % (Auto) 2.5 Keith % (Auto) 3.6 Eos % (Auto) 0.0 Baso % (Auto) 0.2 Neut # (Auto) 9.42 H Lymph # (Auto) 0.26 L Keith # (Auto) 0.37 Eos # (Auto) 0.00 Baso # (Auto) 0.02 Immature Gran # (Auto) 0.32 H PT 29.8 H INR 2.9 H APTT 37 H PTT Ratio 1.3 Fibrinogen 362 Sample Site POC pH POC pCO2 POC pO2 POC HCO3 POC Total CO2 POC Base Excess ABG pH (Temp Correct) ABG pCO2 (Temp Corrct POC ABG pO2 at Pt Temp POC ABG O2 Sat Hernan Test O2 Delivery Device POC O2 Rate POC FiO2 Tidal Volume PEEP POC Sodium Sodium 144 POC Potassium Potassium 4.6 D Chloride 101 Carbon Dioxide 37 H Anion Gap 6 BUN 32 H Creatinine 0.73 Est Cr Clr Drug Dosing 89.9 Est GFR ( Amer) 110.5 Est GFR (Non-Af Amer) 95.3 BUN/Creatinine Ratio 43.8 H Glucose 130 H POC Glucose 136 H Calcium 8.2 L Magnesium 2.4 Total Bilirubin 0.5 Direct Bilirubin 0.1 AST 14 ALT 13 Alkaline Phosphatase 37 Total Protein 6.3 Albumin 3.6 Coccidioid immitis DNA See Scanned Report Histo/Blasto PCR Result See Scanned Report Pneumocyst jirovecii PCR See Scanned Report Aspergillus Antigen See Scanned Report 07/06/23 07/06/23 07/06/23 09:39 11:51 12:12 WBC RBC Hgb POC Hgb 11.6 L 11.6 L Hct POC Hct 34 L 34 L MCV MCH MCHC RDW Std Deviation RDW Coeff of Stephen Plt Count MPV Immature Gran % (Auto) Neut % (Auto) Lymph % (Auto) Keith % (Auto) Eos % (Auto) Baso % (Auto) Neut # (Auto) Lymph # (Auto) Keith # (Auto) Eos # (Auto) Baso # (Auto) Immature Gran # (Auto) PT INR APTT PTT Ratio Fibrinogen Sample Site Art Line Art Line POC pH 7.56 H* 7.56 H* POC pCO2 36 37 POC pO2 402 H 67 L POC HCO3 32 H 33 H POC Total CO2 33 H 34 H POC Base Excess 10.0 H 11.0 H ABG pH (Temp Correct) 7.564 H* 7.558 H* ABG pCO2 (Temp Corrct 36 37 POC ABG pO2 at Pt Temp 401 67 POC ABG O2 Sat 100.0 H 95.0 Hernan Test NA NA O2 Delivery Device Ventilator Ventilator POC O2 Rate 26 20 POC FiO2 100 50 Tidal Volume 370 370 PEEP 8 8 POC Sodium 142 142 Sodium POC Potassium 4.2 4.0 Potassium Chloride Carbon Dioxide Anion Gap BUN Creatinine Est Cr Clr Drug Dosing Est GFR ( Amer) Est GFR (Non-Af Amer) BUN/Creatinine Ratio Glucose POC Glucose 130 H Calcium Magnesium Total Bilirubin Direct Bilirubin AST ALT Alkaline Phosphatase Total Protein Albumin Coccidioid immitis DNA Histo/Blasto PCR Result Pneumocyst jirovecii PCR Aspergillus Antigen 07/06/23 07/06/23 07/06/23 15:01 16:58 19:04 WBC RBC Hgb POC Hgb 11.6 L Hct POC Hct 34 L MCV MCH MCHC RDW Std Deviation RDW Coeff of Stephen Plt Count MPV Immature Gran % (Auto) Neut % (Auto) Lymph % (Auto) Keith % (Auto) Eos % (Auto) Baso % (Auto) Neut # (Auto) Lymph # (Auto) Keith # (Auto) Eos # (Auto) Baso # (Auto) Immature Gran # (Auto) PT 14.6 H INR 1.4 H APTT PTT Ratio Fibrinogen Sample Site Art Line POC pH 7.47 H POC pCO2 45 POC pO2 80 POC HCO3 33 H POC Total CO2 34 H POC Base Excess 9.0 H ABG pH (Temp Correct) 7.476 H ABG pCO2 (Temp Corrct 45 POC ABG pO2 at Pt Temp 79 POC ABG O2 Sat 96.0 H Hernan Test NA O2 Delivery Device Ventilator POC O2 Rate 18 POC FiO2 50 Tidal Volume 350 PEEP 8 POC Sodium 142 Sodium POC Potassium 3.9 Potassium Chloride Carbon Dioxide Anion Gap BUN Creatinine Est Cr Clr Drug Dosing Est GFR ( Amer) Est GFR (Non-Af Amer) BUN/Creatinine Ratio Glucose POC Glucose 97 Calcium Magnesium Total Bilirubin Direct Bilirubin AST ALT Alkaline Phosphatase Total Protein Albumin Coccidioid immitis DNA Histo/Blasto PCR Result Pneumocyst jirovecii PCR Aspergillus Antigen PG Care Time/CCT Total # of Minutes Spent Total Time Spent with Patient: Total time spent is greater than 50% in coordination of care (as documented) at patient's floor/unit and/or counseling patient: Coding Level of Care Code 03368 SUB INP/OBS CARE 07/23MIN Diagnoses Acute on chronic respiratory failure with hypoxia and hypercapnia J96.21; J96.22 Pneumonia J18.9 Laterality: unspecified laterality Lung location: unspecified part of lung Pneumonia type: due to unspecified organism Influenza due to identified 2008 H1N1 influenza virus with pneumonia J10.00 Sepsis A41.9 Sepsis acute organ dysfunction status: unspecified Sepsis type: sepsis due to unspecified organism Vocal cord paralysis J38.00 Positive blood culture R78.81 Chronically elevated hemidiaphragm J98.6 Chronic obstructive pulmonary disease, unspecified COPD type J44.9 COPD type: unspecified COPD Primary hypertension I10 Hypertension type: primary hypertension Myelopathy concurrent with and due to spinal stenosis of cervical region M48.02; G99.2 Depression F32.0 Active/Remission status: currently active Depression Type: major depressive disorder Major depression episode severity: mild Major depression recurrence: single episode Opioid dependence F11.20 Acute metabolic encephalopathy G93.41 Hypophosphatemia E83.39 Acid reflux K21.9 DVT prophylaxis Z29.9 (2) Pneumonia Laterality: unspecified laterality Lung location: unspecified part of lung Pneumonia type: due to unspecified organism Qualified Code(s): J18.9 - Pneumonia, unspecified organism (4) Sepsis Sepsis acute organ dysfunction status: unspecified Sepsis type: sepsis due to unspecified organism Qualified Code(s): A41.9 - Sepsis, unspecified organism (8) COPD (chronic obstructive pulmonary disease) COPD type: unspecified COPD Qualified Code(s): J44.9 - Chronic obstructive pulmonary disease, unspecified (9) Hypertension Hypertension type: primary hypertension Qualified Code(s): I10 - Essential (primary) hypertension (11) Depression Active/Remission status: currently active Depression Type: major depressive disorder Major depression episode severity: mild Major depression recurrence: single episode Qualified Code(s): F32.0 - Major depressive disorder, single episode, mild
[2023-07-06] MEDS: MIRTAZAPINE TAB 15 MG TAB PO SCH (20:16)
[2023-07-06] MEDS: ATORVASTATIN 10 MG TAB PO SCH (20:18)
[2023-07-07] MEDS: fentaNYL citrate PF 100 MCG/2 ML VIAL IV PRN ×3 (01:06→11:04)
[2023-07-07] MEDS: propofoL 1,000 MG/100 ML VIAL IV SCH ×7 (01:25→23:03)
[2023-07-07] MEDS: PROPOFOL BOLUS FROM BAG IV PRN ×3 (02:21→05:23)
[2023-07-07] MEDS: MIDAZOLAM HCL 1 MG/ML 2ML VIAL IV PRN ×4 (02:25→12:16)
[2023-07-07] MEDS: TUBE FEEDING WATER FLUSH OG SCH ×5 (04:02→20:12)
[2023-07-07 05:17] LABS: Basophils # (auto) 0.02 K/uL (0.00-0.20); Basophils % (auto) 0.1 %; Eosinophils # (auto) 0.01 K/uL (0.00-0.50); Eosinophils % (auto) 0.1 %; Hematocrit (blood only) 34.8 % (42.0-52.0); Hemoglobin 11.5 g/dl (14.0-18.0); Immature Granulocytes % (auto) 1.4 %; Lymphocytes # (auto) 1.38 K/uL (1.20-3.40); Lymphocytes % (auto) 9.9 %; Mean Corpuscular Hemoglobin 31.1 pg (25.0-34.0); Mean Corpuscular Volume 94.1 fL (80.0-100.0); Monocytes # (auto) 1.01 K/uL (0.11-0.59); Monocytes % (auto) 7.3 %; Neutrophils # (auto) 11.25 K/uL (1.40-6.50); Neutrophils % (auto) 81.2 %; Platelet Count 288 K/uL (130-400); RDW Coefficient of Variation 12.9 % (11.5-14.5); RDW Standard Deviation 44.5 fL (36.4-46.3); White Blood Count 13.87 K/ul (4.8-10.8)
[2023-07-07] MEDS: PHENYLEPHRINE/NSS 25 MG/250 ML BAG IV SCH ×2 (05:22→17:58)
[2023-07-07 05:35] LABS: BUN Creatinine Ratio 57.7 (10-20); Calcium 7.9 mg/dl (8.6-10.3); Creatinine Clr Calc Pharmacy 92.8 ml/min; Est GFR (African American) 111.7 ml/min; Est GFR (Non-African American) 96.4 ml/min; Magnesium 2.2 mg/dl (1.7-2.4); Phosphorus 2.4 mg/dl (2.5-4.9); Potassium 3.3 mmol/L (3.5-5.1)
[2023-07-07] MEDS ORDERED: POTASSIUM PHOS 3 MMOL/1 ML INFUSION IV STA (05:49)
[2023-07-07] MEDS: ICU ELECTROLYTE REPLACEMENT PROTOCOL SCH ×2 (06:05→13:54)
[2023-07-07] MEDS ORDERED: POTASSIUM PHOSPHATE 6 MMOL in 0.9 % SODIUM CHLORIDE 100 ML IV ONE (06:15)
[2023-07-07] MEDS: POTASSIUM CHLORIDE 20 MEQ/15 ML UDC NG SCH ×2 (06:37→08:48)
[2023-07-07] MEDS: GABAPENTIN 100 MG CAP PO SCH ×3 (07:00→20:14)
[2023-07-07] MEDS: DOCUSATE SODIUM 100 MG CAP PO SCH ×2 (07:00→20:14)
[2023-07-07] MEDS: buPROPion XL 150 MG TABCR PO SCH (07:00)
[2023-07-07] MEDS: CALCIUM 600MG + VIT D 400 IU TAB PO SCH ×2 (07:00→20:13)
[2023-07-07 07:01] LABS: iSTAT Art Bld Gas pCO2 Correct 37 mmHg (35-46); iSTAT Art Bld Gas pH Corrected 7.514 (7.35-7.45); iSTAT Arterial Blood Gas HCO3 29 meg/L (19-24); iSTAT Arterial Blood Gas pCO2 36 mmHg (35-46); iSTAT Arterial Blood Gas pH 7.53 (7.35-7.45); iSTAT Arterial Blood Gas pO2 79 mmHg (80-95); iSTAT Arterial Blood Gas pO2 C 82; iSTAT Carbon Dioxide 30 mmol/L (24-31); iSTAT FiO2 50 %; iSTAT Hematocrit 31 % (42-52); iSTAT Hemoglobin 10.5 g/dl (14.0-18.0); iSTAT Potassium 3.2 mmol/L (3.3-5.0); iSTAT Site Art Line; iSTAT Sodium 140 mmol/L (135-144)
[2023-07-07] MEDS: guaiFENesin 600 MG TABCR PO SCH (07:01)
[2023-07-07] MEDS: GABAPENTIN 800 MG TAB PO SCH ×3 (07:01→20:14)
[2023-07-07] MEDS: PANTOprazole 40 MG in SYRINGE 0 ML IV SCH (07:21)
[2023-07-07] MEDS: THIAMINE HCL 100 MG TAB PO SCH (07:22)
[2023-07-07] MEDS: busPIRone 15 MG TAB PO SCH ×2 (07:22→20:13)
[2023-07-07] MEDS: DOCUSATE SODIUM/SENNA 50/8.6MG TAB PO SCH ×2 (07:23→20:15)
[2023-07-07] MEDS: MULTI VIT W/MINERALS LIQUID 15 ML UDC NG SCH (07:23)
[2023-07-07] MEDS: ALBUT/IPRATROP 3MG/0.5MG NEB 3 ML VIAL NEB SCH ×4 (08:04→20:08)
--- NOTE | 2023-07-07 08:27 | XRay Report ---
XR chest 1V portable HISTORY: Respiratory failure. Follow-up. COMPARISON: Chest 07/06/2023. FINDINGS: Endotracheal tube terminates approximately 2 cm from the dianelys. This is similar to the chris or study. Nasogastric tube remains curled within the stomach. There is persistent elevation of the le ft hemidiaphragm. No pneumothorax. No acute fractures identified. The heart remains mildly enlarged. There is improved aeration within the left lung compared to the prior study. Bibasilar linear densiti es are again noted. No evidence for pulmonary edema. Cervical spinal fusion hardware is present. IMPRESSION: 1. Satisfactory support line placement as described above. 2. Improved aeration within the left lung with persistent bibasilar linear densities. ACT 112: Negative or not required by law. Electronically signed by: Cash Santoro M.D. 07/07/2023 8:26 AM
[2023-07-07] MEDS ORDERED: acetaZOLAMIDE 250 MG in SYRINGE 0 ML IV STA (08:37)
--- NOTE | 2023-07-07 08:38 | Critical Care Progress Note ---
Date of Service July 07, 2023 Assessment & Plan (1) Pneumonia: (2) Acute on chronic respiratory failure with hypoxia and hypercapnia: (3) Influenza due to identified 2009 H1N1 influenza virus with pneumonia: (4) Chronic pulmonary aspiration: (5) Vocal cord weakness: (6) Chronically elevated hemidiaphragm: Plan Impression: 67-year-old male with a history of chronically elevated left hemidiaphragm and vocal cord paralysis with probable recurrent aspiration admitted with left-sided weakness and cough. Placed on BiPAP. Dense infiltrate in the left and underwent bronchoscopy with removal of mucous plug. He unfortunately continued to fail despite aggressive pulmonary toilet and broad- spectrum antibiotics and was transferred to the ICU 07/05/2023 for consideration of repeat bronchoscopy and intubation. Discussed with son and patient this morning and they are agreeable to proceed. 24-hour events: The patient was electively intubated and bronchoscopy completed. He was sedated with propofol. He did have mild decrease in his pressures which required initiation of low-dose Rickie-Synephrine. This morning he is awake and following commands. Recommendations: 1. Neurologic: Continue sedation with propofol. Can likely consider sedation break and weaning but would like to complete family meeting today to define goals of therapy prior to ventilator liberation. Continue the patient's home dose of gabapentin and Remeron as well as BuSpar. Patient does have chronic pain issues at baseline. 2. Respiratory: Hypoxemic respiratory failure is largely due to atelectasis of the left lung with concomitant elevation of the hemidiaphragm. Bronchoscopy did not demonstrate significant mucous plugging, rather demonstrated dynamic collapse and compression of the left lower lobe bronchus. No evidence of active ongoing infection is minimal secretions were identified. His pulmonary mechanics are much better. He now has a post respiratory acidosis compensatory alkalosis. Will give a single dose of Diamox today. He is approaching ventilator liberation however would like to define goals of therapy prior to removing the endotracheal tube. Family meeting is set up for today to discuss additional measures. I think the patient is appropriate to liberate from the ventilator later today but if he were to require repeat bronchoscopy or potential intubation, tracheostomy may be required in the long-term. The patient is already been evaluated by [facility] thoracic surgery for potential diaphragmatic plication and they did not feel that he was a candidate. There is no additional therapy available for his vocal cord. I do not see an indication for chronic steroids and would not recommend this for chronic pain issues. 3. Cardiovascular: Patient had significant bradycardia associated with etomidate. He is currently on a low-dose of Rickie-Synephrine likely secondary to propofol infusion. Anticipate this should be able to be weaned off as his sedation is discontinued. 4. GI: Continue enteral nutrition per nutrition 5. Renal: No acute issues. Initiate ICU electrolyte replacement protocol 6. Endocrine: Glycemic control per protocol 7. ID: Influenza H1 N1 infection. The patient has completed 5 days of Tamiflu. He has completed 6 days of doxycycline and 7 days of Zosyn as well as 5 days of vancomycin, 2 days of cefepime, and 1 day of Rocephin. Bronchoscopy cultures unrevealing to date. Off of antibiotics for now and following clinically. 8. Heme-onc: INR decreased down to 1.4 yesterday evening. Unclear etiology for his elevation. Mild anemia. Continue to follow at this point in time. No indication for transfusion. Patient is critically ill at this point in time with significant possibility of clinical decline and/or . A total of 41 minutes in critical care time was spent in evaluation management coordinating care of this patient exclusive from procedures. This includes discussion with bedside critical care nurse and on multidisciplinary rounds. Additional recommendations will be based on discussion with family later today. Admission and Anticipated Discharge Date Admission Date: June 29, 2023 Subjective Intubated and sedated Review of Systems Review of Systems: Unobtainable due to endotracheal tube Physical Exam Constitutional: Patient is intubated and sedated Neck: trachea midline, no thyromegaly Respiratory: no labored breathing, no cough and not tachypneic Auscultation: no crackles and no wheezes Diminished breath sounds at the left lung base Cardiovascular: RRR, no murmur, no edema Gastrointestinal (Abdomen): normal bowel sounds, soft, nontender, no hepatosplenomegaly Musculoskeletal: Extremities: extremities normal to inspection Skin: no rashes, warm and dry Lymphatic: no cervical lymphadenopathy Results & Data Results & Data Vital Signs (Past 12 Hours) Vital Signs Temp Pulse Resp BP Pulse Ox FiO2 07/07/23 08:00 37.6 C H 108 H 27 H 98 07/07/23 08:00 126/88 07/07/23 07:00 145/75 H 07/07/23 07:00 37.4 C 104 H 25 H 97 07/07/23 06:30 12 07/07/23 06:00 37.7 C H 66 18 115/73 94 07/07/23 05:00 37.9 C H 90 21 121/87 93 07/07/23 04:00 38.0 C H 63 18 130/82 93 07/07/23 04:00 50 07/07/23 03:44 59 L 18 94 50 07/07/23 03:00 38.2 C H 69 18 119/74 94 07/07/23 02:47 81 07/07/23 02:00 38.2 C H 80 22 123/79 93 07/07/23 01:00 38.3 C H 99 H 19 127/83 91 07/07/23 00:00 38.2 C H 84 18 117/75 89 L 07/07/23 00:00 50 07/06/23 23:00 38.3 C H 64 18 113/73 94 07/06/23 22:45 57 L 18 95 50 07/06/23 22:00 38.4 C H 69 18 123/79 94 07/06/23 21:00 76 18 112/76 93 Critical Care Results & Data Vital Signs (Past 12 Hours) Vital Signs Temp Pulse Resp BP Pulse Ox O2 Del Method FiO2 07/07/23 08:00 37.6 C H 108 H 27 H 98 07/07/23 08:00 126/88 07/07/23 08:00 50 07/07/23 08:00 Mechanical Vent 50 07/07/23 07:00 145/75 H 07/07/23 07:00 37.4 C 104 H 25 H 97 07/07/23 06:30 12 07/07/23 06:00 37.7 C H 66 18 115/73 94 07/07/23 05:00 37.9 C H 90 21 121/87 93 07/07/23 04:00 38.0 C H 63 18 130/82 93 07/07/23 04:00 50 07/07/23 03:44 59 L 18 94 50 07/07/23 03:00 38.2 C H 69 18 119/74 94 07/07/23 02:47 81 07/07/23 02:00 38.2 C H 80 22 123/79 93 07/07/23 01:00 38.3 C H 99 H 19 127/83 91 07/07/23 00:00 38.2 C H 84 18 117/75 89 L 07/07/23 00:00 50 07/06/23 23:00 38.3 C H 64 18 113/73 94 07/06/23 22:45 57 L 18 95 50 07/06/23 22:00 38.4 C H 69 18 123/79 94 07/06/23 21:00 76 18 112/76 93 Lab & Micro Results (Past 24 Hours) RBC 3.70 M/uL (4.70-6.10) L 07/07/23 WBC 13.87 K/ul (4.8-10.8) H 07/07/23 Hgb 11.5 g/dl (14.0-18.0) L 07/07/23 Hct 34.8 % (42.0-52.0) L 07/07/23 MCV 94.1 fL (80.0-100.0) 07/07/23 MCH 31.1 pg (25.0-34.0) 07/07/23 MCHC 33.0 g/dL (32.0-36.0) 07/07/23 RDW Standard Deviation 44.5 fL (36.4-46.3) 07/07/23 RDW Coefficient of Variation 12.9 % (11.5-14.5) 07/07/23 Plt Count 288 K/uL (130-400) 07/07/23 MPV 10.0 fL (9.4-12.4) 07/07/23 Neutrophils (%) (Auto) 81.2 % 07/07/23 Lymphocytes (%) (Auto) 9.9 % 07/07/23 Monocytes # (Auto) 1.01 K/uL (0.11-0.59) H 07/07/23 Eosinophils # (Auto) 0.01 K/uL (0.00-0.50) 07/07/23 Immature Granulocyte % (Auto) 1.4 % 07/07/23 Neutrophils # (Auto) 11.25 K/uL (1.40-6.50) H 07/07/23 Lymphocytes # (Auto) 1.38 K/uL (1.20-3.40) 07/07/23 Monocytes # (Auto) 1.01 K/uL (0.11-0.59) H 07/07/23 Eosinophils # (Auto) 0.01 K/uL (0.00-0.50) 07/07/23 Basophils # (Auto) 0.02 K/uL (0.00-0.20) 07/07/23 Immature Granulocyte # (Auto) 0.20 K/uL (0.01-0.20) 4 Na 142 mmol/L (136-145) 07/07/23 K 3.3 mmol/L (3.5-5.1) L 07/07/23 Cl 104 mmol/L (98-107) 07/07/23 CO2 30 mmol/L (21-32) 07/07/23 Anion Gap 8 (3-11) 07/07/23 BUN 41 mg/dl (6-23) H 07/07/23 Creatinine 0.71 mg/dl (0.6-1.4) 07/07/23 Estimated GFR ( Amer) 111.7 ml/min 07/07/23 Estimated GFR (Non-Af Amer) 96.4 ml/min 07/07/23 BUN/Creatinine Ratio 57.7 (10-20) H 07/07/23 Glu 105 mg/dl (70-99(Fasting)) H 07/07/23 Ca 7.9 mg/dl (8.6-10.3) L 07/07/23 Phosphorus Level 2.4 mg/dl (2.5-4.9) L 07/07/23 Mg 2.2 mg/dl (1.7-2.4) 07/07/23 04:31 Calcium Level 7.9 mg/dl (8.6-10.3) L 07/07/23 04:31 Prothromb Time International Ratio 1.4 (0.9-1.1) H 07/06/23 19 :04 Hernan Test NA 07/07/23 06:18 Microbiology 07/06/23 08:55 Gram Stain - Final Bronch Wash,Left Lower Lobe 06/29/23 18:27 Aerobic Blood Culture - Final Blood Coag neg staph not lugdunensis Anaerobic Blood Culture - Final Coag neg staph not lugdunensis Alpha strep not S.pne/enteroco 06/30/23 16:44 Aerobic Blood Culture - Final Blood No growth in Aerobic bottle after 5 days. Anaerobic Blood Culture - Final 06/30/23 16:44 Aerobic Blood Culture - Final Blood No growth in Aerobic bottle after 5 days. Anaerobic Blood Culture - Final Diagnostic Findings (Past 24 Hours) Chest X-Ray 07/06/23 09:06 XR chest 1V portable HISTORY: intubation COMPARISON: Chest 07/05/2023. FINDINGS: There is persistent elevation left hemidiaphragm. Therefore, the nasogastric tube is likely curled within the stomach. The endotracheal tube terminates approximately 2 cm from the dianelys. The heart remains mildly enlarged. There is improved aeration within the left lung compared the prior study. Bibasilar densities are again noted. No pneumothorax. There are cervical spinal fusion hardware. No evidence for pulmonary edema. IMPRESSION: 1. Satisfactory support line placement as described above. 2. Improved aeration within the left lung and persistent bibasilar densities. ACT 112: Negative or not required by law. Electronically signed by: Cash Santoro M.D. 07/06/2023 9:24 AM Chest X-Ray 07/07/23 07:00 XR chest 1V portable HISTORY: Respiratory failure. Follow-up. COMPARISON: Chest 07/06/2023. FINDINGS: Endotracheal tube terminates approximately 2 cm from the dianelys. This is similar to the prior study. Nasogastric tube remains curled within the stomach. There is persistent elevation of the left hemidiaphragm. No pneumothorax. No acute fractures identified. The heart remains mildly enlarged. There is improved aeration within the left lung compared to the prior study. Bibasilar linear densities are again noted. No evidence for pulmonary edema. Cervical spinal fusion hardware is present. IMPRESSION: 1. Satisfactory support line placement as described above. 2. Improved aeration within the left lung with persistent bibasilar linear densities. ACT 112: Negative or not required by law. Electronically signed by: Cash Santoro M.D. 07/07/2023 8:26 AM I & O Totals 24 Hours 07/06/23 07/07/23 07/08/23 06:59 06:59 06:59 Intake Total 545 / 545 1670.579 / 1670.579 449.785 / 449.785 Output Total 1200 / 1200 657 / 657 50 / 50 Balance -655 / -655 1013.579 / 1013.579 399.785 / 399.785 Cumulative 06/29/23 17:51 thru 07/07/23 08:00 Intake Total 05863.364 Output Total 6564 Balance 4836.364 RT Ventilator Mngmt (Last Documented) Ventilator Ordered Settings Ventilator Support Mode Assist Control 07/07/23 08:00 Respiratory Rate 27 07/07/23 08:00 Ventilator Tidal Volume 350 07/07/23 08:00 Setting Minute Ventilation 6.3 07/07/23 03:44 Positive End Expiratory 8 07/07/23 08:00 Pressure Fraction of Inspired Oxygen [ 70 07/02/23 03:25 Resting] Fraction of Inspired Oxygen 50 07/07/23 08:00 Machine Comment vent changes made based on ABG 7. 07/07/23 06:30 52, CO2 35, HCO3 29, PaO2 79 on RR 18 Ventilator - PT Measurements Respiratory Rate 27 Exhaled Tidal Volume 350 Minute Ventilation 6.3 Peak Inspiratory Airway 21 Pressure Plateau Pressure 19 Respiratory Cycle Inspiratory: 1:4.1 Expiratory Ratio Inspiratory Phase Time 0.65 End-Tidal CO2 29 Static Lung Compliance 31.82 Dynamic Lung Compliance 26.92 Normal Static Lung Compliance 47.00 Patient Measurements Comment Blue dye noted in High-low suction secretions. Nursing notified and aware. Coding Level of Care Code 26446 CRITICAL CARE 1ST 30-74M Diagnoses Pneumonia J18.9 Laterality: unspecified laterality Lung location: unspecified part of lung Pneumonia type: due to unspecified organism Acute on chronic respiratory failure with hypoxia and hypercapnia J96.21; J96.22 Influenza due to identified 2009 H1N1 influenza virus with pneumonia J10.00 Chronic pulmonary aspiration T17.908A Vocal cord weakness J38.00 Chronically elevated hemidiaphragm J98.6 (1) Pneumonia Laterality: unspecified laterality Lung location: unspecified part of lung Pneumonia type: due to unspecified organism Qualified Code(s): J18.9 - Pneumonia, unspecified organism
--- NOTE | 2023-07-07 12:24 | Palliative Care Progress Note ---
Date of Service July 07, 2023 Assessment & Plan (1) Discussion about advance care planning held with family member: Plan: 55 min ACP discussion held face to face with pt son Jules Vargas and his daughter in law. They live about 2 hr away. Dtr in law works in the social work case manager space and indicates they have decided they want pt dc to SNF closer to their home and not back to [facility]. Meeting was held face to face with family along with Drs. Moore ([facility]) and Shen ( ospitalist.) Family gave consent to proceed with discussion and elected to remain at pt bedside. Dr. Moore reviewed [facility] ICU issues and concerns re resp nayely: pt is nearing vent liberation but a plan is needed for the "in case" potentials after extubation should he decline further. Son and dtr in law reiterate pt does not desire trach/PEG/Vent SNF. Dr Moore reaffirmed that pt indicated same preference to him in days prior to intubation. He reviewed that patient's issues with diaphragm and vocal cord issues were evaluated at [facility] a few years ago and there was not a surgical option available - pt was felt to be too high risk at that time and now even further high risk. Dr. Moore shared that he had cared for pt several times over the past years and is familiar with his medical case. This was reassuring to the family. Son asked about reintubation "for a day" as well as "can they just take out the lung that doesn't work, you already said he's basically just has the one lung that works right anyway." We reviewed that pt is high risk. lung resection carries a 30% mortality in the average, not critically ill patient but for pt, the combined mortality risk given age + frailty + performance status + comorbidities render tremendous risk of very high mortality and surgery is not an option. We recommended proceeding with extubation when able and do not reintubate as ultimately, reintubation carries with it the need for trach/peg/vent SNF which neither pt or family desire. We discussed how it would be inappropriate to initiate a procedure for which the outcome is not aligned with pt wishes, desires and preferences, which would not offer better QOL and serves only to prolong the dying process versus improving QOL. Son shares "He already doesn't have a great QOL. he wasn't happy with where things were at but he could tolerate things the way they were before all this happened." I suggested a middle ground approach: treat what's treatable and fix what's fixable, DNR/DNI, no escalation beyond BiPAP trial PT WILL ALLOW bc he has historically and as recent as this admission refused to use BiPAP consistently. If he worsens/declines then transition to a comfort focused plan of care with escalating symptom mgt. Son and dtr in law were in agreement with this recommendation but son very much wants to have father engaged in decision about the plan and wants to see if pt can participate once off the vent. We reviewed in detail that sedation can linger/takes time to dissipate and the complexity of pt known medical issues including likely etoh associated cognitive dysfxn/?dementia may impact his post intubation cognitive recovery - it would not be unusually for ICU patients after life support interventions to have delirium/agitation/confusion etc. At the end of our meeting, pt son said he wants a call at 830 every night like he was getting from prior ICU provider. I gently explained that since Dr Moore spoke with them face to face today, I would not anticipate a need for another call unless anything changed. At that time, pt son sharply replied "well the 830pm calls weren't after any face to face meetings either so I don' think it's asking a lot." I tried explaining Dr Moore is likely not here that late but that we would pass along the request for a nightly (brief) update and that they as family were welcome to call the unit anytime to speak with nursing and be up dated. Son continued to insist he wants a nightly call at 830pm from ICU, he stated "I don't think it's asking a lot, for a 3 min update about my father." I suggested, very gently, that he could call the unit anytime for an update and he remained pretty fixed on wanting someone from here to call. Dr. Gotti and I advised we would pass along that request and perhaps a nightly call from nursing with that brief update could be accommodated. I reassured and reiterated they are welcome to call the unit anytime, and present members of the hospital staff would be happy to try and help. Son and dtr in law are not staying in the area and will be returning home today. (2) Dyspnea and respiratory abnormalities: Plan: remains on vent for critical support (3) Airway clearance impairment: (4) Weakness generalized: (5) Palliative care by specialist: (6) Chronically elevated hemidiaphragm: (7) Vocal cord paralysis: (8) Hypercapnic respiratory failure: Plan * ACP meeting as noted above * Son is requesting a nightly call at 830pm with update, I have updated nursing * Son and want pt dc to SNF closer to their home and asked to speak with CM today - I notified care mgt of this request to meet/see CM notes for more details. * Plan at this time is to proceed with extubation when able Thank you for allowing us to participate in the ongoing care of this patient. Please don't hesitate to call or page with any additional concerns. Dr. Elsy Parikh DNP Director, Palliative Care Admission and Anticipated Discharge Date Admission Date: June 29, 2023 Subjective remains intubated sedation weaning aiming for extubation once goals are clearly established Review of Systems Review of Systems: Unobtainable due to endotracheal tube and Unobtainable due to reduced consciousness Physical Exam Constitutional: + ill appearing, + thin, + altered menta l status, + frail appearing, + diaphoretic, + mechanically ventilated and + underweight bitemp wasting Eyes: + eyes dysmorphic ENMT: ETT to vent +NG tube feeding Neck: No Stridor Respiratory: coarse rhonchi diminished left lower lung Cardiovascular: Rate/Rhythm: regular rate Gastrointestinal (Abdomen): soft distension, no grimacing with palpation, BS+ Musculoskeletal: generalized weakness Skin: pale, diaphoretic Neurologic: sedated Genitourinary: +Harris Results & Data Vital Signs (Past 12 Hours) Vital Signs Temp Pulse Pulse Resp BP Pulse Ox O2 Del Method 07/07/23 12:00 37.8 C H 82 23 96 07/07/23 12:00 121/72 07/07/23 12:00 07/07/23 11:30 125/69 07/07/23 11:30 38.0 C H 79 12 95 07/07/23 11:25 79 12 95 07/07/23 11:25 79 12 95 Mechanical Vent 07/07/23 11:00 130/85 07/07/23 11:00 37.9 C H 97 H 26 H 99 07/07/23 10:00 136/86 07/07/23 10:00 37.8 C H 98 H 24 136/86 97 07/07/23 09:39 124/83 07/07/23 09:39 37.8 C H 82 18 97 07/07/23 09:00 114/78 07/07/23 09:00 37.7 C H 74 12 96 07/07/23 08:04 101 H 23 96 Mechanical Vent 07/07/23 08:04 101 H 23 96 07/07/23 08:00 37.6 C H 108 H 27 H 98 07/07/23 08:00 126/88 07/07/23 08:00 07/07/23 08:00 Mechanical Vent 07/07/23 07:00 145/75 H 07/07/23 07:00 37.4 C 104 H 25 H 97 07/07/23 06:30 12 07/07/23 06:00 37.7 C H 66 18 115/73 94 07/07/23 05:00 37.9 C H 90 21 121/87 93 07/07/23 04:00 38.0 C H 63 18 130/82 93 07/07/23 04:00 07/07/23 03:44 59 L 18 94 07/07/23 03:00 38.2 C H 69 18 119/74 94 07/07/23 02:47 81 07/07/23 02:00 38.2 C H 80 22 123/79 93 07/07/23 01:00 38.3 C H 99 H 19 127/83 91 FiO2 07/07/23 12:00 07/07/23 12:00 07/07/23 12:00 50 07/07/23 11:30 07/07/23 11:30 07/07/23 11:25 50 07/07/23 11:25 50 07/07/23 11:00 07/07/23 11:00 07/07/23 10:00 07/07/23 10:00 07/07/23 09:39 07/07/23 09:39 07/07/23 09:00 07/07/23 09:00 07/07/23 08:04 50 07/07/23 08:04 50 07/07/23 08:00 07/07/23 08:00 07/07/23 08:00 50 07/07/23 08:00 50 07/07/23 07:00 07/07/23 07:00 07/07/23 06:30 07/07/23 06:00 07/07/23 05:00 07/07/23 04:00 07/07/23 04:00 50 07/07/23 03:44 50 07/07/23 03:00 07/07/23 02:47 07/07/23 02:00 07/07/23 01:00 Laboratory Results data reviewed Diagnostic Findings data reviewed PG Care Time/CCT Total # of Minutes Spent Total Time Spent: 115 Total Time Spent with Patient: Total time spent is greater than 50% in coordination of care (as documented) at patient's floor/unit and/or counseling patient: I spent 115 minutes overall addressing this very complex case: 10 min in medical data review/discussion with referring provider(s) and/or preparation for the visit 15 min in direct interaction with the patient/exam 55 min in Advance Care Planning/Goals of Care discussions as detailed above in note (must be >16min) 15 min in subsequent review and synthesis of assessment and plan 20 min communicating with other providers regarding the patient's case: CCM, hospitalist, nursing, care mgt Advanced Care Planning 32008 Advanced Care Planning 30 Min 42714 Advanced Care Planning Additional 30 Min [place] [address] SUB INP/OBS CARE 3/50MIN Patient Type Established History Comprehensive Exam Comprehensive Medical Decision Making High Complexity Diagnoses Discussion about advance care planning held with family member Z71.0 Dyspnea and respiratory abnormalities R06.00; R06.89 Airway clearance impairment R06.89 Weakness generalized R53.1 Palliative care by specialist Z51.5 Chronically elevated hemidiaphragm J98.6 Vocal cord paralysis J38.00 Acute on chronic respiratory failure with hypercapnia J96.22 Chronicity: acute on chronic Additional Codes Advanced Care Planning - 53862 Advanced Care Planning 30 Min: 57419 Advanced Care Planning 30 Min ([id number]) Advanced Care Planning - 82737 Advanced Care Planning Additional 30 Min: 77230 Advanced Care Planning Additional 30 Min ([id number]) (8) Hypercapnic respiratory failure Chronicity: acute on chronic Qualified Code(s): J96.22 - Acute and chronic respiratory failure with hypercapnia
[2023-07-07] MEDS ORDERED: STAT IV Infusion **Titration per Protocol STA (13:38)
[2023-07-07] MEDS: fentaNYL citrate 2,500 MCG/250 ML BAG IV SCH (13:51)
--- NOTE | 2023-07-07 18:39 | Hospitalist Progress Note ---
Date of Service July 07, 2023 Assessment & Plan (1) Acute on chronic respiratory failure with hypoxia and hypercapnia: Plan: acute component 2nd to fluA infection, b/l pneumonia left (severe) > right, left lung mucous plugging, COPD with exacerbation (early in the stay he had had wheezing), pulmonary edema. WORSE on 07/05/23 - CXR at that time with DEANNA again opacified much like a few days ago. Previous collapse of DEANNA was due to mucous plugging chronic component - COPD, left-sided hemidiaphragm elevation, etc s/p elective intubation and mech ventilation AM 07/06 s/p bronchoscopy by Dr Moore showing the following - "The right mainstem, right upper lobe, right middle lobe, and right lower lobe were all widely patent with thin secretions present. The mucosa appeared normal. The left mainstem bronchus was widely patent. The left upper lobe and lingula takeoff were patent but demonstrated dynamic collapse with respiration. The left lower lobe bronchi was significantly collapsed." Thus, no mucous plugs found. [id number] the bronchial findings are concerning in that he will be at risk of ongoing pulmonary events (recurrent mucous plugging, recurrent pneumonias, difficulty expectorating mucous, etc). Antibiotics stopped per ICU team, since no evidence of ongoing pneumonia Family meeting at bedside this morning 07/[address] Moore, Dr Parikh from palliative care team, myself and Mr. Fleming's son and daughter in law. Mr. 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 Planning for today to lighten sedation and move towards extubation, for which he is ready based on vent parameters and reexpansion of L lung on CXR. We hope that he will do well, but if he were to worsen not likely reintubate because that would lead to trach, which he did not want, otherwise could not expect clinical improvement were he to be reintubated. Another trial of bipap is an option were he to worsen again if he permits it. (2) Pneumonia: Plan: DEANNA/LLL extensive, severe bacterial superinfection in the setting of fluA infection completed 7 days of cefepime then zosyn, also completed 6 days of atypical coverage with doxy 100mg BID s/p bronch 07/01/[address] Capps - large mucous plugging found in the left bronchial tree; plugs removed all bronch cultures negative to date - no specific bacterial pathogen identified PJP, histo, blasto, and cocci studies that were sent to [facility] lab returned negative s/p bronch 07/[address] Moore without evidence of mucus plugging - see #1 above appreciate pulmonary assistance, discussed with Dr. Moore today (3) Influenza due to identified 2008 H1N1 influenza virus with pneumonia: Plan: fluA infection tamiflu 75mg BID x 5 days - course completed (4) Sepsis: Plan: 2nd influenza A infection 2nd left-sided pneumonia see "positive blood culture" below (5) Vocal cord paralysis: Plan: history of such per records risk factor for aspiration reason for vocal cord paralysis is likely his cervical myelopathy or prior cspine surgery big risk factor for aspiration events as he cannot protect his airway (6) Positive blood culture: Plan: coag neg staph, 2/ bottles, and alpha strep /8 bottles likely contaminants IV vancomycin was d/c several days ago (7) Chronically elevated hemidiaphragm: Plan: left-side etiology uncertain present for several [facility] as well as thoracic surgery at [facility] three years ago - not amenable to surgical intervention and too weak to tolerate at this time. Contributes to recurrent LLL collapse and mucus plugging. (8) COPD (chronic obstructive pulmonary disease): Plan: with exacerbation treated with solumedrol earlier in hospital course. prior to admission was on prednisone 5 mg qod for chronic pain? steroids discontinued (9) Hypertension: Plan: not on meds for such follow BPs for now (10) Myelopathy concurrent with and due to spinal stenosis of cervical region: Plan: severe 04/2020 - extensive c-spine surgery by Dr Álvarez outpatient pulmonary note from 2020 suggests that some of his vocal cord paralysis +/- hemidiaphragm elevation could be from prior surgery vs the c-spine disease itself (11) Depression: Plan: cont all home meds (12) Opioid dependence: Plan: typically on oxycodone 15mg q4h prn takes narcotics for chronic back/neck pain PDMP shows chronic prescriptions for oxy 10's just recently his dose was increased to 15mg tabs as outpatient defer narcotic management to ICU (13) Acute metabolic encephalopathy: Plan: multifactorial - influenza infection, left-sided pneumonia, hypercapnia, hypoxia, meds for sedation for bronch now intubated/sedated, sedation being weaned (14) Hypophosphatemia: Plan: mild, resolved with K-phos oral replacement stopped as part of ICU protocol phos levels will be followed (15) Acid reflux: Plan: takes pepcid daily at home was having frequent reflux symptoms this entire stay before intubation cont PPI BID cont carafate qid cont usual pepcid 20mg daily CT chest showed esophageal wall thickening which is suggestive of esophagitis diflucan started as empiric treatment for possible maxwell esophagitis but in interval stopped by ICU team (16) DVT prophylaxis: Plan: lovenox daily Admission and Anticipated Discharge Date Admission Date: June 29, 2023 Subjective remains intubated, mechanically ventilated, sedated this AM Physical Exam 2 Physical Exam: PHYSICAL EXAMINATION Last 24h vital signs reviewed, see documentation in flowsheet General: comfortable appearing, no distress, sedated HEENT: Normocephalic, atraumatic, pupils round and equal, sclerae anicteric, no conjunctival injection, moist mucus membranes Lungs: vent sounds anteriorly bilaterally, equal chest rise Heart: Regular rate and rhythm, no murmurs. No JVD Abdomen: Soft, nontender, nondistended. Bowel sounds present. Extremities: Warm, dry, well-perfused. No extremity edema. Neuro: sedated. eduar Psych: unable to assess Results & Data Results & Data Vital Signs (Past 12 Hours) Vital Signs Temp Pulse Pulse Resp BP Pulse Ox O2 Del Method 07/07/23 18:00 121/75 07/07/23 18:00 63 12 95 07/07/23 17:00 36.9 C 07/07/23 17:00 69 12 95 07/07/23 17:00 113/66 07/07/23 16:00 120/71 07/07/23 16:00 67 12 95 07/07/23 16:00 07/07/23 16:00 71 07/07/23 15:00 117/73 07/07/23 15:00 70 12 96 07/07/23 14:10 71 12 95 07/07/23 14:10 71 12 95 Mechanical Vent 07/07/23 14:00 121/76 07/07/23 14:00 77 12 95 07/07/23 13:38 12 07/07/23 13:30 133/77 07/07/23 13:30 122 H 28 H 92 07/07/23 13:13 124 H 21 94 07/07/23 13:00 37.7 C H 121 H 24 96 07/07/23 12:30 125/75 07/07/23 12:30 37.7 C H 87 22 96 07/07/23 12:00 37.8 C H 82 23 96 07/07/23 12:00 121/72 07/07/23 12:00 07/07/23 11:30 125/69 07/07/23 11:30 38.0 C H 79 12 95 07/07/23 11:25 79 12 95 07/07/23 11:25 79 12 95 Mechanical Vent 07/07/23 11:00 130/85 07/07/23 11:00 37.9 C H 97 H 26 H 99 07/07/23 10:00 136/86 07/07/23 10:00 37.8 C H 98 H 24 136/86 97 07/07/23 09:39 124/83 07/07/23 09:39 37.8 C H 82 18 97 07/07/23 09:00 114/78 07/07/23 09:00 37.7 C H 74 12 96 07/07/23 08:04 101 H 23 96 Mechanical Vent 07/07/23 08:04 101 H 23 96 07/07/23 08:00 37.6 C H 108 H 27 H 98 07/07/23 08:00 126/88 07/07/23 08:00 07/07/23 08:00 Mechanical Vent 07/07/23 07:00 145/75 H 07/07/23 07:00 37.4 C 104 H 25 H 97 07/07/23 06:30 12 FiO2 07/07/23 18:00 07/07/23 18:00 40 07/07/23 17:00 07/07/23 17:00 07/07/23 17:00 07/07/23 16:00 07/07/23 16:00 07/07/23 16:00 40 07/07/23 16:00 07/07/23 15:00 07/07/23 15:00 07/07/23 14:10 40 07/07/23 14:10 40 07/07/23 14:00 07/07/23 14:00 07/07/23 13:38 40 07/07/23 13:30 07/07/23 13:30 07/07/23 13:13 40 07/07/23 13:00 07/07/23 12:30 07/07/23 12:30 07/07/23 12:00 07/07/23 12:00 07/07/23 12:00 50 07/07/23 11:30 07/07/23 11:30 07/07/23 11:25 50 07/07/23 11:25 50 07/07/23 11:00 07/07/23 11:00 07/07/23 10:00 07/07/23 10:00 07/07/23 09:39 07/07/23 09:39 07/07/23 09:00 07/07/23 09:00 07/07/23 08:04 50 07/07/23 08:04 50 07/07/23 08:00 07/07/23 08:00 07/07/23 08:00 50 07/07/23 08:00 50 07/07/23 07:00 07/07/23 07:00 07/07/23 06:30 Laboratory Results 07/07/23 04:31 07/07/23 04:31 Diagnostic Findings Chest X-Ray 07/07/23 07:00 XR chest 1V portable HISTORY: Respiratory failure. Follow-up. COMPARISON: Chest 07/06/2023. FINDINGS: Endotracheal tube terminates approximately 2 cm from the dianelys. This is similar to the prior study. Nasogastric tube remains curled within the stomach. There is persistent elevation of the left hemidiaphragm. No pneumothorax. No acute fractures identified. The heart remains mildly enlarged. There is improved aeration within the left lung compared to the prior study. Bibasilar linear densities are again noted. No evidence for pulmonary edema. Cervical spinal fusion hardware is present. IMPRESSION: 1. Satisfactory support line placement as described above. 2. Improved aeration within the left lung with persistent bibasilar linear densities. ACT 112: Negative or not required by law. Electronically signed by: Cash Santoro M.D. 07/07/2023 8:26 AM PG Care Time/CCT Total # of Minutes Spent Total Time Spent with Patient: I personally spent: 65 minutes today on clinical care activities including: reviewing chart notes and vital signs reviewing labs reviewing studies discussion with domestic travel consultant(s) pulmonary and critical care examining the patient family meeting at bedside writing orders documentation Coding Level of Care Code 25716 SUB INP/OBS CARE 3/50MIN Diagnoses Acute on chronic respiratory failure with hypoxia and hypercapnia J96.21; J96.22 Pneumonia J18.9 Laterality: unspecified laterality Lung location: unspecified part of lung Pneumonia type: due to unspecified organism Influenza due to identified 2008 H1N1 influenza virus with pneumonia J10.00 Sepsis A41.9 Sepsis acute organ dysfunction status: unspecified Sepsis type: sepsis due to unspecified organism Vocal cord paralysis J38.00 Positive blood culture R78.81 Chronically elevated hemidiaphragm J98.6 Chronic obstructive pulmonary disease, unspecified COPD type J44.9 COPD type: unspecified COPD Primary hypertension I10 Hypertension type: primary hypertension Myelopathy concurrent with and due to spinal stenosis of cervical region M48.02; G99.2 Depression F32.0 Active/Remission status: currently active Depression Type: major depressive disorder Major depression episode severity: mild Major depression recurrence: single episode Opioid dependence F11.20 Acute metabolic encephalopathy G93.41 Hypophosphatemia E83.39 Acid reflux K21.9 DVT prophylaxis Z29.9 (2) Pneumonia Laterality: unspecified laterality Lung location: unspecified part of lung P neumonia type: due to unspecified organism Qualified Code(s): J18.9 - Pneumonia, unspecified organism (4) Sepsis Sepsis acute organ dysfunction status: unspecified Sepsis type: sepsis due to unspecified organism Qualified Code(s): A41.9 - Sepsis, unspecified organism (8) COPD (chronic obstructive pulmonary disease) COPD type: unspecified COPD Qualified Code(s): J44.9 - Chronic obstructive pulmonary disease, unspecified (9) Hypertension Hypertension type: primary hypertension Qualified Code(s): I10 - Essential (primary) hypertension (11) Depression Active/Remission status: currently active Depression Type: major depressive disorder Major depression episode severity: mild Major depression recurrence: single episode Qualified Code(s): F32.0 - Major depressive disorder, single episode, mild
[2023-07-07] MEDS: ATORVASTATIN 10 MG TAB PO SCH (20:12)
[2023-07-07] MEDS: MIRTAZAPINE TAB 15 MG TAB PO SCH (20:14)
[2023-07-07] MEDS: fentaNYL BOLUS from BAG IV PRN (22:02)
[2023-07-08] MEDS: PEPTAMEN INTENSE VHP 1.0 CAL 1,000 ML BAG OG SCH (00:12)
[2023-07-08] MEDS: TUBE FEEDING WATER FLUSH OG SCH ×7 (00:59→23:30)
[2023-07-08] MEDS: PROPOFOL BOLUS FROM BAG IV PRN (01:20)
[2023-07-08] MEDS: fentaNYL BOLUS from BAG IV PRN (01:20)
[2023-07-08] MEDS: propofoL 1,000 MG/100 ML VIAL IV SCH ×7 (03:05→22:09)
[2023-07-08 04:32] LABS: Allen Test Pos (Pos); Base Excess ABG 0.5 mEq/L (-9-1.8); HCO3 ABG 26 mmol/L (19-24); PCO2 ABG 44 mmHg (35-46); PO2 ABG 97 mmHg (80-95); pH ABG 7.38 (7.35-7.45)
[2023-07-08 04:37] LABS: Basophils # (auto) 0.02 K/uL (0.00-0.20); Basophils % (auto) 0.1 %; Eosinophils % (auto) 1.5 %; Hematocrit (blood only) 33.3 % (42.0-52.0); Hemoglobin 10.9 g/dl (14.0-18.0); Immature Granulocytes # (auto) 0.18 K/uL (0.01-0.20); Immature Granulocytes % (auto) 1.3 %; Lymphocytes # (auto) 2.21 K/uL (1.20-3.40); Lymphocytes % (auto) 16.5 %; Mean Corpuscular Hemoglobin 31.7 pg (25.0-34.0); Mean Corpuscular Hgb Conc 32.7 g/dL (32.0-36.0); Mean Corpuscular Volume 96.8 fL (80.0-100.0); Mean Platelet Volume 10.2 fL (9.4-12.4); Monocytes # (auto) 0.92 K/uL (0.11-0.59); Monocytes % (auto) 6.9 %; Neutrophils # (auto) 9.84 K/uL (1.40-6.50); Neutrophils % (auto) 73.7 %; Platelet Count 238 K/uL (130-400); RDW Coefficient of Variation 13.2 % (11.5-14.5); RDW Standard Deviation 47.3 fL (36.4-46.3); Red Blood Count 3.44 M/uL (4.70-6.10); White Blood Count 13.37 K/ul (4.8-10.8)
[2023-07-08] MEDS: PHENYLEPHRINE/NSS 25 MG/250 ML BAG IV SCH ×2 (04:50→19:44)
[2023-07-08 05:00] LABS: BUN Creatinine Ratio 59.6 (10-20); Calcium 7.9 mg/dl (8.6-10.3); Est GFR (African American) 122.3 ml/min; Est GFR (Non-African American) 105.5 ml/min; Magnesium 2.2 mg/dl (1.7-2.4); Phosphorus 3.3 mg/dl (2.5-4.9); Potassium 4.2 mmol/L (3.5-5.1)
[2023-07-08] MEDS: ICU ELECTROLYTE REPLACEMENT PROTOCOL SCH ×2 (05:24→08:50)
[2023-07-08] MEDS: ALBUT/IPRATROP 3MG/0.5MG NEB 3 ML VIAL NEB SCH ×4 (07:28→20:11)
--- NOTE | 2023-07-08 07:51 | XRay Report ---
XR chest 1V portable HISTORY: Respiratory failure. COMPARISON: None. FINDINGS: Endotracheal tube terminates approximately 2 cm from the dianelys. This is similar to the chris or study. Nasogastric tube remains curled within the stomach. There is persistent elevation of the le ft hemidiaphragm. No pneumothorax. No acute fractures identified. The heart remains mildly enlarged. There is improved aeration within the left lung compared to the prior study. Bibasilar linear densiti es are again noted. No evidence for pulmonary edema. Cervical spinal fusion hardware is present. IMPRESSION: 1. Satisfactory support line placement as described above. 2. Improved aeration within the left lung with persistent bibasilar linear densities. ACT 112: Negative or not required by law. Electronically signed by: Cash Santoro M.D. 07/08/2023 7:50 AM
[2023-07-08] MEDS: GABAPENTIN 800 MG TAB PO SCH ×3 (08:15→20:17)
[2023-07-08] MEDS: DOCUSATE SODIUM/SENNA 50/8.6MG TAB PO SCH ×2 (08:15→20:16)
[2023-07-08] MEDS: DOCUSATE SODIUM 100 MG CAP PO SCH ×2 (08:15→20:17)
[2023-07-08] MEDS: GABAPENTIN 100 MG CAP PO SCH ×3 (08:15→20:17)
[2023-07-08] MEDS: THIAMINE HCL 100 MG TAB PO SCH (08:49)
[2023-07-08] MEDS: CALCIUM 600MG + VIT D 400 IU TAB PO SCH ×2 (08:49→20:18)
[2023-07-08] MEDS: MULTI VIT W/MINERALS LIQUID 15 ML UDC NG SCH (08:49)
[2023-07-08] MEDS: busPIRone 15 MG TAB PO SCH ×2 (08:49→20:19)
[2023-07-08] MEDS: PANTOprazole 40 MG in SYRINGE 0 ML IV SCH (08:49)
--- NOTE | 2023-07-08 09:04 | Critical Care Progress Note ---
Date of Service July 08, 2023 Assessment & Plan (1) Pneumonia: (2) Acute on chronic respiratory failure with hypoxia and hypercapnia: (3) Influenza due to identified 2009 H1N1 influenza virus with pneumonia: (4) Chronic pulmonary aspiration: (5) Vocal cord weakness: (6) Chronically elevated hemidiaphragm: Plan Impression: 67-year-old male with a history of chronically elevated left hemidiaphragm and vocal cord paralysis with probable recurrent aspiration admitted with left-sided weakness and cough. Placed on BiPAP. Dense infiltrate in the left and underwent bronchoscopy with removal of mucous plug. He unfortunately continued to fail despite aggressive pulmonary toilet and broad- spectrum antibiotics and was transferred to the ICU 07/05/2023 for consideration of repeat bronchoscopy and intubation. Discussed with son and patient this morning and they are agreeable to proceed. 24-hour events: Met with family and palliative care yesterday. Family is in agreement that the patient would not want tracheostomy but are hopeful that his respiratory status can continue to improve. He was placed on SBT yesterday and failed due to tachypnea and tachycardia after brief period of time and was placed back on full ventilatory support and resedated. No acute issues overnight. Recommendations: 1. Neurologic: Will perform repeat sedation break today and repeat SBT. Continue the patient's home dose of gabapentin and Remeron as well as BuSpar. Patient does have chronic pain issues at baseline. Will start baseline long- acting pain medication. 2. Respiratory: Hypoxemic respiratory failure is largely due to atelectasis of the left lung with concomitant elevation of the hemidiaphragm. Most recent bronchoscopy did not demonstrate significant mucous plugging, rather demonstrated dynamic collapse and compression of the left lower lobe bronchus. No evidence of active ongoing infection is minimal secretions were identified. He failed SBT yesterday. Will repeat SBT today to see how he does. Best case scenario would be to get the patient liberated from the ventilator and then potentially try noninvasive positive pressure ventilation as needed and possibly at night although the patient has not been interested in noninvasive positive pressure ventilation in the past. Management of secretions and cough may be an issue in the future. If the patient is unable to be weaned from the mechanical ventilator or demonstrates recurrent respiratory failure and an inability to remain off positive airway pressure ventilation and does not want to pursue BiPAP, transition to palliative measures may be more appropriate. 3. Cardiovascular: Hemodynamically stable. 4. GI: Continue enteral nutrition per nutrition. Currently on hold for SBP 5. Renal: No acute issues. Continue ICU electrolyte replacement protocol 6. Endocrine: Glycemic control per protocol. Unclear indication for prednisone every other day. At risk for adrenal insufficiency but blood pressure stable so we will hold off for now. 7. ID: Influenza H1 N1 infection. The patient has completed 5 days of Tamiflu. He has completed 6 days of doxycycline and 7 days of Zosyn as well as 5 days of vancomycin, 2 days of cefepime, and 1 day of Rocephin. Bronchoscopy cultures unrevealing to date. Off of antibiotics for now and following clinically. 8. Heme-onc:. Mild anemia. Continue to follow at this point in time. No indication for transfusion. Patient is critically ill at this point in time with significant possibility of clinical decline and/or . A total of 39 minutes in critical care time was spent in evaluation management coordinating care of this patient exclusive from procedures. This includes discussion with bedside critical care nurse and on multidisciplinary rounds. Admission and Anticipated Discharge Date Admission Date: June 29, 2023 Subjective Patient is intubated and sedated Review of Systems Review of Systems: Unobtainable due to endotracheal tube Physical Exam Constitutional: Intubated and sedated Neck: trachea midline, no thyromegaly Respiratory: no labored breathing, no cough and not tachypneic Auscultation: + rhonchi; no crackles and no wheezes Cardiovascular: RRR, no murmur, no edema Gastrointestinal (Abdomen): normal bowel sounds, soft, nontender, no hepatosplenomegaly Musculoskeletal: Extremities: extremities normal to inspection Skin: no rashes, warm and dry Lymphatic: no cervical lymphadenopathy Results & Data Results & Data Vital Signs (Past 12 Hours) Vital Signs Temp Pulse Resp BP Pulse Ox O2 Del Method FiO2 07/08/23 08:00 37.4 C 102 H 24 97 07/08/23 07:59 30 07/08/23 07:59 Mechanical Vent 30 07/08/23 07:00 37.3 C 66 16 96 07/08/23 05:00 37.4 C 65 16 126/82 94 07/08/23 04:00 37.4 C 60 16 111/71 96 07/08/23 03:34 50 07/08/23 03:00 37.4 C 66 16 122/77 96 07/08/23 02:17 72 19 99 30 07/08/23 02:00 37.3 C 71 16 102/68 95 07/08/23 01:11 69 07/08/23 01:00 70 16 132/84 96 07/08/23 00:00 71 16 101/64 95 07/08/23 00:00 40 07/07/23 23:28 67 16 96 30 07/07/23 23:00 68 16 97/64 L 95 07/07/23 23:00 97/64 L 07/07/23 22:00 69 16 105/67 95 Critical Care Results & Data Vital Signs (Past 12 Hours) Vital Signs Temp Pulse Resp BP Pulse Ox O2 Del Method FiO2 07/08/23 08:00 37.4 C 102 H 24 97 07/08/23 07:59 30 07/08/23 07:59 Mechanical Vent 30 07/08/23 07:00 37.3 C 66 16 96 07/08/23 05:00 37.4 C 65 16 126/82 94 07/08/23 04:00 37.4 C 60 16 111/71 96 07/08/23 03:34 50 07/08/23 03:00 37.4 C 66 16 122/77 96 07/08/23 02:17 72 19 99 30 07/08/23 02:00 37.3 C 71 16 102/68 95 07/08/23 01:11 69 07/08/23 01:00 70 16 132/84 96 07/08/23 00:00 71 16 101/64 95 07/08/23 00:00 40 07/07/23 23:28 67 16 96 30 07/07/23 23:00 68 16 97/64 L 95 07/07/23 23:00 97/64 L 07/07/23 22:00 69 16 105/67 95 Lab & Micro Results (Past 24 Hours) RBC 3.44 M/uL (4.70-6.10) L 07/08/23 WBC 13.37 K/ul (4.8-10.8) H 07/08/23 Hgb 10.9 g/dl (14.0-18.0) L 07/08/23 Hct 33.3 % (42.0-52.0) L 07/08/23 MCV 96.8 fL (80.0-100.0) 07/08/23 MCH 31.7 pg (25.0-34.0) 07/08/23 MCHC 32.7 g/dL (32.0-36.0) 07/08/23 RDW Standard Deviation 47.3 fL (36.4-46.3) H 07/08/23 RDW Coefficient of Variation 13.2 % (11.5-14.5) 07/08/23 Plt Count 238 K/uL (130-400) 07/08/23 MPV 10.2 fL (9.4-12.4) 07/08/23 Neutrophils (%) (Auto) 73.7 % 07/08/23 Lymphocytes (%) (Auto) 16.5 % 07/08/23 Monocytes # (Auto) 0.92 K/uL (0.11-0.59) H 07/08/23 Eosinophils # (Auto) 0.20 K/uL (0.00-0.50) 07/08/23 Immature Granulocyte % (Auto) 1.3 % 07/08/23 Neutrophils # (Auto) 9.84 K/uL (1.40-6.50) H 07/08/23 Lymphocytes # (Auto) 2.21 K/uL (1.20-3.40) 07/08/23 Monocytes # (Auto) 0.92 K/uL (0.11-0.59) H 07/08/23 Eosinophils # (Auto) 0.20 K/uL (0.00-0.50) 07/08/23 Basophils # (Auto) 0.02 K/uL (0.00-0.20) 07/08/23 Immature Granulocyte # (Auto) 0.18 K/uL (0.01-0.20) 4 Na 137 mmol/L (136-145) 07/08/23 K 4.2 mmol/L (3.5-5.1) 07/08/23 Cl 106 mmol/L (98-107) 07/08/23 CO2 26 mmol/L (21-32) 07/08/23 Anion Gap 5 (3-11) 07/08/23 BUN 34 mg/dl (6-23) H 07/08/23 Creatinine 0.57 mg/dl (0.6-1.4) L 07/08/23 Estimated GFR ( Amer) 122.3 ml/min 07/08/23 Estimated GFR (Non-Af Amer) 105.5 ml/min 07/08/23 BUN/Creatinine Ratio 59.6 (10-20) H 07/08/23 Glu 119 mg/dl (70-99(Fasting)) H 07/08/23 Ca 7.9 mg/dl (8.6-10.3) L 07/08/23 Phosphorus Level 3.3 mg/dl (2.5-4.9) 07/08/23 Mg 2.2 mg/dl (1.7-2.4) 07/08/23 04:23 Calcium Level 7.9 mg/dl (8.6-10.3) L 07/08/23 04:23 Arterial Blood pH 7.38 (7.35-7.45) 07/08/23 04:23 Arterial Blood Partial Pressure CO2 44 mmHg (35-46) 07/08/23 04 :23 Arterial Blood Partial Pressure O2 97 mmHg (80-95) H 07/08/23 0 4:23 Arterial Blood HCO3 26 mmol/L (19-24) H 07/08/23 04:23 Arterial Blood Base Excess 0.5 mEq/L (-9-1.8) 07/08/23 04:23 Arterial Blood Oxygen Saturation 99.0 % (90-95) H 07/08/23 04:2 3 Blood Gas Oxygen Given 30%FI02 07/08/23 04:23 Hernan Test Pos (Pos) 07/08/23 04:23 Microbiology 07/06/23 08:55 Gram Stain - Final Bronch Wash,Left Lower Lobe Bronchial Culture - Final Light normal gopi. Diagnostic Findings (Past 24 Hours) Chest X-Ray 07/08/23 07:00 XR chest 1V portable HISTORY: Respiratory failure. COMPARISON: None. FINDINGS: Endotracheal tube terminates approximately 2 cm from the dianelys. This is similar to the prior study. Nasogastric tube remains curled within the stomach. There is persistent elevation of the left hemidiaphragm. No pneumothorax. No acute fractures identified. The heart remains mildly enlarged. There is improved aeration within the left lung compared to the prior study. Bibasilar linear densities are again noted. No evidence for pulmonary edema. Cervical spinal fusion hardware is present. IMPRESSION: 1. Satisfactory support line placement as described above. 2. Improved aeration within the left lung with persistent bibasilar linear densities. ACT 112: Negative or not required by law. Electronically signed by: Cash Santoro M.D. 07/08/2023 7:50 AM I & O Totals 24 Hours 07/07/23 07/08/23 07/09/23 06:59 06:59 06:59 Intake Total 1670.579 / 5258.229 8445.532 / 2269.532 350 / 350 Output Total 657 / 657 1184 / 1184 50 / 50 Balance 1013.579 / 1277.103 9165.532 / 1085.532 300 / 300 Cumulative 06/29/23 17:51 thru 07/08/23 08:09 Intake Total 11282.111 Output Total 7748 Balance 5822.111 RT Ventilator Mngmt (Last Documented) Ventilator Ordered Settings Ventilator Support Mode Assist Control 07/08/23 07:59 Respiratory Rate 24 07/08/23 08:00 Ventilator Tidal Volume 350 07/08/23 07:59 Setting Minute Ventilation 5.6 07/08/23 02:17 Ventilator Positive Pressure 8 07/07/23 13:13 Support Setting Positive End Expiratory 8 07/08/23 07:59 Pressure Fraction of Inspired Oxygen [ 70 07/02/23 03:25 Resting] Fraction of Inspired Oxygen 30 07/08/23 07:59 Machine Comment increased rate due to 07/07/23 20 :33 Ventilator - PT Measurements Respiratory Rate 24 Exhaled Tidal Volume 350 Minute Ventilation 5.6 Peak Inspiratory Airway 19 Pressure Plateau Pressure 17.4 Respiratory Cycle Inspiratory: 1:2.8 Expiratory Ratio Inspiratory Phase Time 1.0 End-Tidal CO2 36 Static Lung Compliance 37.23 Dynamic Lung Compliance 31.82 Normal Static Lung Compliance 47.00 Patient Measurements Comment Patient placed back in full vent support at this time due to failing SBT for tachypnea and tachycardia. RN is re-sedating patient. Dr. Moore aware and is at bedside. Coding Level of Care Code 75021 CRITICAL CARE 1ST 30-74M Diagnoses Pneumonia J18.9 Laterality: unspecified laterality Lung location: unspecified part of lung Pneumonia type: due to unspecified organism Acute on chronic respiratory failure with hypoxia and hypercapnia J96.21; J96.22 Influenza due to identified 2009 H1N1 influenza virus with pneumonia J10.00 Chronic pulmonary aspiration T17.908A Vocal cord weakness J38.00 Chronically elevated hemidiaphragm J98.6 (1) Pneumonia Laterality: unspecified laterality Lung location: unspecified part of lung Pneumonia type: due to unspecified organism Qualified Code(s): J18.9 - Pneumonia, unspecified organism
[2023-07-08] MEDS ORDERED: MIDAZOLAM HCL 5 MG/ML 2ML VIAL IV ONE (09:59)
[2023-07-08] MEDS ORDERED: fentaNYL citrate PF 100 MCG/2 ML VIAL IV ONE (09:59)
[2023-07-08] MEDS ORDERED: ETOMIDATE 2 MG/ML 20 ML VIAL IV ONE (09:59)
[2023-07-08] MEDS ORDERED: ATROPINE SULFATE 0.1 MG/ML 10ML SYR IV ONE (09:59)
[2023-07-08] MEDS: METHADONE HCL 5 MG TAB PO SCH ×2 (11:09→20:21)
[2023-07-08] MEDS: fentaNYL citrate 2,500 MCG/250 ML BAG IV SCH (12:46)
--- NOTE | 2023-07-08 16:49 | Hospitalist Progress Note ---
Date of Service July 08, 2023 Assessment & Plan (1) Acute on chronic respiratory failure with hypoxia and hypercapnia: Plan: acute component 2nd to fluA infection, b/l pneumonia left (severe) > right, left lung mucous plugging, COPD with exacerbation (early in the stay he had had wheezing), pulmonary edema. WORSE on 07/05/23 - CXR at that time with DEANNA again opacified much like a few days ago. Previous collapse of DEANNA was due to mucous plugging chronic component - COPD, left-sided hemidiaphragm elevation, vocal cord paralysis leading to difficulty protecting airway/managing secretions s/p elective intubation and mech ventilation AM 07/06 s/p bronchoscopy by Dr Moore showing the following - "The right mainstem, right upper lobe, right middle lobe, and right lower lobe were all widely patent with thin secretions present. The mucosa appeared normal. The left mainstem bronchus was widely patent. The left upper lobe and lingula takeoff were patent but demonstrated dynamic collapse with respiration. The left lower lobe bronchi was significantly collapsed." Thus, no mucous plugs found. Antibiotics stopped per ICU team, since no evidence of ongoing pneumonia Family meeting at bedside 07/[address] Moore, Dr Parikh from palliative care team, myself and Mr. Fleming's son and daughter in law. Mr. Fleming has stated in past he did not want trach, detention mechanical ventilation, SNF. Planning for today to lighten sedation and move towards extubation, for which he is ready based on vent parameters and reexpansion of L lung on CXR. We hope that he will do well, but if he were to worsen not likely reintubate because that would lead to trach, which he did not want, otherwise could not expect clinical improvement were he to be reintubated. Another trial of bipap is an option were he to worsen again if he permits it. 07/07 failed SBT, back on mechanical vent and sedation overnight, plan for repeat SBT today (2) Pneumonia: Plan: DEANNA/LLL extensive, severe bacterial superinfection in the setting of fluA infection completed 7 days of cefepime then zosyn, also completed 6 days of atypical coverage with doxy 100mg BID s/p bronch 07/01/[address] Capps - large mucous plugging found in the left bronchial tree; plugs removed all bronch cultures negative to date - no specific bacterial pathogen identified PJP, histo, blasto, and cocci studies that were sent to [facility] lab returned negative s/p bronch 07/[address] Moore without evidence of mucus plugging or ongoing secretions suggestive of pneumonia - antibiotics stopped at that point continue monitoring off ABX (3) Influenza due to identified 2008 H1N1 influenza virus with pneumonia: Plan: fluA infection tamiflu 75mg BID x 5 days - course completed (4) Sepsis: Plan: 2nd influenza A infection 2nd left-sided pneumonia (5) Vocal cord paralysis: Plan: history of such per records reason for vocal cord paralysis is likely his cervical myelopathy or prior cspine surgery big risk factor for aspiration events as he cannot protect his airway (6) Positive blood culture: Plan: coag neg staph, 2/8 bottles, and alpha strep /8 bottles. likely contaminants (7) Chronically elevated hemidiaphragm: Plan: left-side etiology uncertain present for several years has seen [facility] [place] for this as outpatient as well as thoracic surgery at [facility] three years ago - not amenable to surgical intervention and too weak to tolerate at this time. Contributes to recurrent LLL collapse and mucus plugging. (8) COPD (chronic obstructive pulmonary disease): Plan: with exacerbation treated with solumedrol earlier in hospital course. prior to admission was on prednisone 5 mg qod for chronic pain? steroids discontinued at risk for secondary adrenal insufficiency - monitor (9) Hypertension: Plan: not on meds for such follow BPs for now (10) Myelopathy concurrent with and due to spinal stenosis of cervical region: Plan: severe 04/2020 - extensive c-spine surgery by Dr Álvarez outpatient pulmonary note from 2020 suggests that some of his vocal cord paralysis +/- hemidiaphragm elevation could be from prior surgery vs the c-spine disease itself (11) Depression: Plan: cont all home meds (12) Opioid dependence: Plan: typically on oxycodone 15mg q4h prn takes narcotics for chronic back/neck pain PDMP shows chronic prescriptions for oxy 10's just recently his dose was increased to 15mg tabs as outpatient defer narcotic management to ICU (13) Acute metabolic encephalopathy: Plan: multifactorial - influenza infection, left-sided pneumonia, hypercapnia, hypoxia, meds for sedation for bronch now intubated (14) Hypophosphatemia: Plan: replaced (15) Acid reflux: Plan: takes pepcid daily at home was having frequent reflux symptoms this entire stay before intubation continue acid suppression with PPI CT chest showed esophageal wall thickening which is suggestive of esophagitis diflucan started as empiric treatment for possible maxwell esophagitis but in interval stopped by ICU team (16) DVT prophylaxis: Plan: lovenox daily Admission and Anticipated Discharge Date Admission Date: June 29, 2023 Subjective remains intubated, chief embalmer sedation, opening eyes and alert this am quickly failed SBT yesterday, planning for another trial today Physical Exam 2 Physical Exam: PHYSICAL EXAMINATION Last 24h vital signs reviewed, see documentation in flowsheet General: comfortable appearing, no distress, eyes open, lightly sedated HEENT: Normocephalic, atraumatic, pupils round and equal, sclerae anicteric, no conjunctival injection, moist mucus membranes Lungs: vent sounds anteriorly bilaterally, equal chest rise Heart: Regular rate and rhythm, no murmurs. No JVD Abdomen: Soft, nontender, nondistended. Bowel sounds present. Extremities: Warm, dry, well-perfused. No extremity edema. Neuro: face symmetric, eduar, moving 4 ext spontaneously Psych: unable to assess Results & Data Results & Data Vital Signs (Past 12 Hours) Vital Signs Temp Pulse Pulse Resp BP Pulse Ox O2 Del Method 07/08/23 16:00 37.4 C 74 16 94 07/08/23 16:00 102/56 L 07/08/23 16:00 07/08/23 15:26 69 18 98 Mechanical Vent 07/08/23 15:26 69 18 98 07/08/23 15:00 37.4 C 59 L 16 95 07/08/23 15:00 104/59 L 07/08/23 14:00 37.5 C 68 16 95 07/08/23 14:00 100/60 07/08/23 13:00 37.3 C 87 18 94 07/08/23 13:00 102/76 07/08/23 12:00 120/69 07/08/23 12:00 37.2 C 58 L 16 96 07/08/23 12:00 07/08/23 11:56 59 L 16 95 Mechanical Vent 07/08/23 11:56 59 L 16 95 07/08/23 11:00 37.2 C 76 16 94 07/08/23 11:00 93/59 L 07/08/23 10:00 37.3 C 76 16 94 07/08/23 09:22 16 07/08/23 09:10 37.3 C 121 H 26 H 98 07/08/23 09:05 37.4 C 114 H 27 H 96 07/08/23 09:00 135/77 07/08/23 09:00 37.4 C 99 H 14 97 07/08/23 09:00 109 H 13 98 07/08/23 08:05 103/85 07/08/23 08:01 37.4 C 97 H 21 96 07/08/23 08:00 37.4 C 102 H 24 97 07/08/23 07:59 07/08/23 07:59 Mechanical Vent 07/08/23 07:28 71 16 95 07/08/23 07:28 71 16 95 Mechanical Vent 07/08/23 07:00 37.3 C 66 16 96 07/08/23 05:00 37.4 C 65 16 126/82 94 FiO2 07/08/23 16:00 07/08/23 16:00 07/08/23 16:00 30 07/08/23 15:26 30 07/08/23 15:26 30 07/08/23 15:00 07/08/23 15:00 07/08/23 14:00 07/08/23 14:00 07/08/23 13:00 07/08/23 13:00 07/08/23 12:00 07/08/23 12:00 07/08/23 12:00 30 07/08/23 11:56 30 07/08/23 11:56 30 07/08/23 11:00 07/08/23 11:00 07/08/23 10:00 07/08/23 09:22 30 07/08/23 09:10 07/08/23 09:05 07/08/23 09:00 07/08/23 09:00 07/08/23 09:00 30 07/08/23 08:05 07/08/23 08:01 07/08/23 08:00 07/08/23 07:59 30 07/08/23 07:59 30 07/08/23 07:28 30 07/08/23 07:28 30 07/08/23 07:00 07/08/23 05:00 Laboratory Results 07/08/23 04:23 07/08/23 04:23 Diagnostic Findings Chest X-Ray 07/08/23 07:00 XR chest 1V portable HISTORY: Respiratory failure. COMPARISON: None. FINDINGS: Endotracheal tube terminates approximately 2 cm from the dianelys. This is similar to the prior study. Nasogastric tube remains curled within the stomach. There is persistent elevation of the left hemidiaphragm. No pneumothorax. No acute fractures identified. The heart remains mildly enlarged. There is improved aeration within the left lung compared to the prior study. Bibasilar linear densities are again noted. No evidence for pulmonary edema. Cervical spinal fusion hardware is present. IMPRESSION: 1. Satisfactory support line placement as described above. 2. Improved aeration within the left lung with persistent bibasilar linear densities. ACT 112: Negative or not required by law. Electronically signed by: Cash Santoro M.D. 07/08/2023 7:50 AM PG Care Time/CCT Total # of Minutes Spent Total Time Spent with Patient: Total time spent is greater than 50% in coordination of care (as documented) at patient's floor/unit and/or counseling patient: Coding Level of Care Code 36345 SUB INP/OBS CARE 2/35MIN Diagnoses Acute on chronic respiratory failure with hypoxia and hypercapnia J96.21; J96.22 Pneumonia J18.9 Laterality: unspecified laterality Lung location: unspecified part of lung Pneumonia type: due to unspecified organism Influenza due to identified 2008 H1N1 influenza virus with pneumonia J10.00 Sepsis A41.9 Sepsis acute organ dysfunction status: unspecified Sepsis type: sepsis due to unspecified organism Vocal cord paralysis J38.00 Positive blood culture R78.81 Chronically elevated hemidiaphragm J98.6 Chronic obstructive pulmonary disease, unspecified COPD type J44.9 COPD type: unspecified COPD Primary hypertension I10 Hypertension type: primary hypertension Myelopathy concurrent with and due to spinal stenosis of cervical region M48.02; G99.2 Depression F32.0 Active/Remission status: currently active Depression Type: major depressive disorder Major depression episode severity: mild Major depression recurrence: single episode Opioid dependence F11.20 Acute metabolic encephalopathy G93.41 Hypophosphatemia E83.39 Acid reflux K21.9 DVT prophylaxis Z29.9 (2) Pneumonia Laterality: unspecified laterality Lung location: unspecified part of lung P neumonia type: due to unspecified organism Qualified Code(s): J18.9 - Pneumonia, unspecified organism (4) Sepsis Sepsis acute organ dysfunction status: unspecified Sepsis type: sepsis due to unspecified organism Qualified Code(s): A41.9 - Sepsis, unspecified organism (8) COPD (chronic obstructive pulmonary disease) COPD type: unspecified COPD Qualified Code(s): J44.9 - Chronic obstructive pulmonary disease, unspecified (9) Hypertension Hypertension type: primary hypertension Qualified Code(s): I10 - Essential (primary) hypertension (11) Depression Active/Remission status: currently active Depression Type: major depressive disorder Major depression episode severity: mild Major depression recurrence: single episode Qualified Code(s): F32.0 - Major depressive disorder, single episode, mild
[2023-07-08] MEDS: ATORVASTATIN 10 MG TAB PO SCH (20:18)
[2023-07-08] MEDS: MIRTAZAPINE TAB 15 MG TAB PO SCH (20:19)
[2023-07-09] MEDS: propofoL 1,000 MG/100 ML VIAL IV SCH ×4 (00:21→10:11)
[2023-07-09] MEDS: PEPTAMEN INTENSE VHP 1.0 CAL 1,000 ML BAG OG SCH (00:22)
[2023-07-09] MEDS: TUBE FEEDING WATER FLUSH OG SCH ×2 (02:30→07:17)
[2023-07-09 04:13] LABS: HCO3 ABG 27 mmol/L (19-24); Oxygen Saturation ABG 99.1 % (90-95); PCO2 ABG 44 mmHg (35-46); PO2 ABG 106 mmHg (80-95)
[2023-07-09 04:14] LABS: Allen Test Pos (Pos)
[2023-07-09 04:30] LABS: Basophils # (auto) 0.01 K/uL (0.00-0.20); Basophils % (auto) 0.1 %; Eosinophils # (auto) 0.17 K/uL (0.00-0.50); Eosinophils % (auto) 1.6 %; Hematocrit (blood only) 31.8 % (42.0-52.0); Hemoglobin 10.4 g/dl (14.0-18.0); Immature Granulocytes # (auto) 0.11 K/uL (0.01-0.20); Lymphocytes # (auto) 1.86 K/uL (1.20-3.40); Lymphocytes % (auto) 17.5 %; Mean Corpuscular Hemoglobin 31.1 pg (25.0-34.0); Mean Corpuscular Hgb Conc 32.7 g/dL (32.0-36.0); Mean Corpuscular Volume 95.2 fL (80.0-100.0); Mean Platelet Volume 10.8 fL (9.4-12.4); Monocytes # (auto) 0.65 K/uL (0.11-0.59); Monocytes % (auto) 6.1 %; Neutrophils # (auto) 7.84 K/uL (1.40-6.50); Neutrophils % (auto) 73.7 %; Platelet Count 186 K/uL (130-400); RDW Coefficient of Variation 13.1 % (11.5-14.5); RDW Standard Deviation 45.6 fL (36.4-46.3); Red Blood Count 3.34 M/uL (4.70-6.10); White Blood Count 10.64 K/ul (4.8-10.8)
[2023-07-09 04:37] LABS: BUN Creatinine Ratio 48.1 (10-20); Creatinine Clr Calc Pharmacy 122.4 ml/min; Est GFR (Non-African American) 107.9 ml/min; Magnesium 2.2 mg/dl (1.7-2.4); Phosphorus 3.7 mg/dl (2.5-4.9); Potassium 4.1 mmol/L (3.5-5.1)
[2023-07-09] MEDS: fentaNYL citrate 2,500 MCG/250 ML BAG IV SCH (05:26)
[2023-07-09] MEDS: ICU ELECTROLYTE REPLACEMENT PROTOCOL SCH ×2 (07:06→17:01)
[2023-07-09] MEDS: ALBUT/IPRATROP 3MG/0.5MG NEB 3 ML VIAL NEB SCH ×5 (07:28→20:18)
[2023-07-09] MEDS: PANTOprazole 40 MG in SYRINGE 0 ML IV SCH (08:02)
[2023-07-09] MEDS: DOCUSATE SODIUM/SENNA 50/8.6MG TAB PO SCH ×2 (08:02→20:48)
[2023-07-09] MEDS: DOCUSATE SODIUM 100 MG CAP PO SCH ×2 (08:02→20:48)
[2023-07-09] MEDS: CALCIUM 600MG + VIT D 400 IU TAB PO SCH ×2 (08:02→21:37)
[2023-07-09] MEDS: THIAMINE HCL 100 MG TAB PO SCH (08:02)
[2023-07-09] MEDS: busPIRone 15 MG TAB PO SCH ×2 (08:02→21:37)
[2023-07-09] MEDS: MULTI VIT W/MINERALS LIQUID 15 ML UDC NG SCH (08:02)
[2023-07-09] MEDS: METHADONE HCL 5 MG TAB PO SCH ×2 (08:02→21:41)
--- NOTE | 2023-07-09 08:06 | XRay Report ---
XR chest 1V portable CLINICAL HISTORY: Respiratory failure. COMPARISON STUDY: Chest radiograph July 08, 2023. Chest CT June 30, 2023. FINDINGS: Tip of endotracheal tube is 3 cm above the dianelys. Elevation of the left hemidiaphragm is a gain noted. Nasogastric tube remains coiled within the stomach. This is unchanged. There is no pneumo thorax. Small left pleural effusion is unchanged. Cardiomediastinal silhouette is stable. Pulmonary v ascular congestion is unchanged. Left lower lung airspace opacities persist. Right infrahilar opacity is unchanged. IMPRESSION: 1. Satisfactory positioning of lines and tubes. 2. No significant change in appearance of the chest. Elevation of the left hemidiaphragm with a small left pleural effusion and left basilar airspace opacity. Stable right infrahilar opacity. ACT 112: Negative or not required by law. Electronically signed by: Mode Real M.D. 07/09/2023 8:04 AM
[2023-07-09] MEDS ORDERED: GABAPENTIN 250 MG/5 ML 470 ML BTL GT SCH (09:00)
--- NOTE | 2023-07-09 10:45 | Procedure Note ---
Procedure Note: Bronchoscopy Procedure Procedure: Therapeutic aspiration of secretions, subsequent Provider: Leobardo Moore MD Consent: Procedure was emergent prior to the patient being extubated to allow for optimization of pulmonary status. No family immediately available. Procedure: Patient was in the intensive care unit on mechanical ventilator. We are anticipating liberation from the mechanical ventilator today and bronchoscopy was required to optimize pulmonary status and potentially avoid reintubation. The fiberoptic scope was passed through the existing endotracheal tube via the Bodai adapter. The tube was about 1 cm above the dianelys. There were thin secretions present within the endotracheal tube which were suctioned free. A brief systemic inspection of the lower airways was conducted. There were thin clear secretions present in the bilateral mainstem bronchi which were suctioned free. The mucosa appeared relatively normal. The bronchoscope was then removed from the airways. Patient tolerated the procedure well without complication Impression: 1. Endotracheal tube in good position. 2. Thin clear secretions present throughout tracheobronchial tree status post therapeutic aspiration of secretions [facility] [place] Codes (Charges) Pulmonary/Thoracic Procedure 1: Pulmonary and Thoracic: 93023 Bronchoscopy, reclear airway
--- NOTE | 2023-07-09 10:52 | Critical Care Progress Note ---
Date of Service July 09, 2023 Assessment & Plan (1) Pneumonia: (2) Acute on chronic respiratory failure with hypoxia and hypercapnia: (3) Influenza due to identified 2009 H1N1 influenza virus with pneumonia: (4) Chronic pulmonary aspiration: (5) Vocal cord weakness: (6) Chronically elevated hemidiaphragm: Plan Impression: 67-year-old male with a history of chronically elevated left hemidiaphragm and vocal cord paralysis with probable recurrent aspiration admitted with left-sided weakness and cough. Placed on BiPAP. Dense infiltrate in the left and underwent bronchoscopy with removal of mucous plug. He unfortunately continued to fail despite aggressive pulmonary toilet and broad- spectrum antibiotics and was transferred to the ICU 07/05/2023 for consideration of repeat bronchoscopy and intubation. 24-hour events: Patient completed a spontaneous breathing trial yesterday which she failed due to tachypnea and tachycardia. Repeat SBT this morning looks reassuring and I think the patient should have a trial of ventilator liberation. Recommendations: 1. Neurologic: Sedation break in progress. Continue methadone for baseline pain control but may be able to transition to MS Contin. Will hopefully be able to assess patient's swallowing if he does well transition back to oxycodone and restart his baseline outpatient regiment of bupropion and buspirone. Would hold Celebrex for now. Can likely restart his gabapentin and lorazepam.. Start physical therapy and Occupational Therapy. Out of bed to chair as tolerated. 2. Respiratory: Hypoxemic respiratory failure is largely due to atelectasis of the left lung with concomitant elevation of the hemidiaphragm. Lungs remained on serial chest radiographs. SBT somewhat reassuring this morning although the patient does have intermittent episodes of tachypnea and tachycardia. As the patient has expressed desire to avoid long-term tracheostomy or long-term mechanical innervation feel that the patient is appropriate for a trial of javier eration of the ventilator. If he develops recurrent atelectasis or respiratory insufficiency, would need to address with family prior to consideration of repeat intubation. 3. Cardiovascular: Hemodynamically stable. 4. GI: Await swallow evaluation. If does well, can advance diet. 5. Renal: No acute issues. Continue ICU electrolyte replacement protocol 6. Endocrine: Glycemic control per protocol. Holding off on restarting prednisone 7. ID: Influenza H1 N1 infection. The patient has completed 5 days of Tamiflu. He has completed 6 days of doxycycline and 7 days of Zosyn as well as 5 days of vancomycin, 2 days of cefepime, and 1 day of Rocephin. Bronchoscopy cultures unrevealing to date. Off of antibiotics for now and following clinically. 8. Heme-onc:. Mild anemia. Continue to follow at this point in time. No indication for transfusion. Patient is improving. Will request PT and OT evaluations and out of bed to chair as tolerated. If his bedside nursing swallow is inadequate, we will request formal speech therapy evaluation. Will observe in the ICU the next several hours or potentially overnight and likely transfer out to the floor in the a.m. if he does well. Patient was discussed with the bedside critical care nurse as well as with the multidisciplinary team on rounds. Total of 40 minutes was spent coordinating and managing care for this patient Admission and Anticipated Discharge Date Admission Date: June 29, 2023 Subjective Patient is intubated and on low levels of sedation. Despite this he is awake alert and following commands. He was placed on a spontaneous breathing trial this morning which she did reasonably well with with the exception of some mild tachycardia and intermittent tachypnea but he was able to slow his breathing down on command. Bronchoscopy was performed this morning demonstrated minimal secretions within the tracheobronchial tree. Review of Systems Review of Systems: Unobtainable due to endotracheal tube Physical Exam Constitutional: Patient is intubated and on sedation but is awake alert and following commands Neck: trachea midline, no thyromegaly Respiratory: no labored breathing, no cough and not tachypneic Auscultation: + rhonchi; no crackles and no wheezes Cardiovascular: RRR, no murmur, no edema Gastrointestinal (Abdomen): normal bowel sounds, soft, nontender, no hepatosplenomegaly Musculoskeletal: Extremities: extremities normal to inspection Skin: no rashes, warm and dry Lymphatic: no cervical lymphadenopathy Results & Data Results & Data Vital Signs (Past 12 Hours) Vital Signs Temp Pulse Resp BP Pulse Ox O2 Del Method O2 Flow Rate 07/09/23 10:34 Mechanical Vent 07/09/23 09:10 Nasal Cannula 5 07/09/23 08:00 83 07/09/23 07:23 83 23 97 07/09/23 05:30 37.6 C H 84 25 H 96 07/09/23 05:15 37.5 C 88 30 H 95 07/09/23 05:00 37.5 C 88 28 H 94 07/09/23 05:00 120/64 07/09/23 04:12 74 16 98 07/09/23 04:00 37.5 C 72 16 99 07/09/23 04:00 121/78 07/09/23 04:00 07/09/23 03:00 37.5 C 63 16 96 07/09/23 03:00 105/67 07/09/23 02:00 37.6 C H 63 16 96 07/09/23 02:00 95/66 L 07/09/23 01:01 65 16 96 07/09/23 01:00 37.6 C H 63 16 96 07/09/23 01:00 98/67 L 07/09/23 00:00 37.7 C H 65 16 96 07/09/23 00:00 100/61 07/09/23 00:00 07/09/23 00:00 68 07/08/23 23:00 104/67 07/08/23 23:00 37.8 C H 68 16 96 FiO2 07/09/23 10:34 07/09/23 09:10 07/09/23 08:00 07/09/23 07:23 30 07/09/23 05:30 07/09/23 05:15 07/09/23 05:00 07/09/23 05:00 07/09/23 04:12 30 07/09/23 04:00 07/09/23 04:00 07/09/23 04:00 30 07/09/23 03:00 07/09/23 03:00 07/09/23 02:00 07/09/23 02:00 07/09/23 01:01 30 07/09/23 01:00 07/09/23 01:00 07/09/23 00:00 07/09/23 00:00 07/09/23 00:00 30 07/09/23 00:00 07/08/23 23:00 07/08/23 23:00 Critical Care Results & Data Vital Signs (Past 12 Hours) Vital Signs Temp Pulse Resp BP Pulse Ox O2 Del Method O2 Flow Rate 07/09/23 10:34 Mechanical Vent 07/09/23 09:10 Nasal Cannula 5 07/09/23 08:00 83 07/09/23 07:23 83 23 97 07/09/23 05:30 37.6 C H 84 25 H 96 07/09/23 05:15 37.5 C 88 30 H 95 07/09/23 05:00 37.5 C 88 28 H 94 07/09/23 05:00 120/64 07/09/23 04:12 74 16 98 07/09/23 04:00 37.5 C 72 16 99 07/09/23 04:00 121/78 07/09/23 04:00 07/09/23 03:00 37.5 C 63 16 96 07/09/23 03:00 105/67 07/09/23 02:00 37.6 C H 63 16 96 07/09/23 02:00 95/66 L 07/09/23 01:01 65 16 96 07/09/23 01:00 37.6 C H 63 16 96 07/09/23 01:00 98/67 L 07/09/23 00:00 37.7 C H 65 16 96 07/09/23 00:00 100/61 07/09/23 00:00 07/09/23 00:00 68 07/08/23 23:00 104/67 07/08/23 23:00 37.8 C H 68 16 96 FiO2 07/09/23 10:34 07/09/23 09:10 07/09/23 08:00 07/09/23 07:23 30 07/09/23 05:30 07/09/23 05:15 07/09/23 05:00 07/09/23 05:00 07/09/23 04:12 30 07/09/23 04:00 07/09/23 04:00 07/09/23 04:00 30 07/09/23 03:00 07/09/23 03:00 07/09/23 02:00 07/09/23 02:00 07/09/23 01:01 30 07/09/23 01:00 07/09/23 01:00 07/09/23 00:00 07/09/23 00:00 07/09/23 00:00 30 07/09/23 00:00 07/08/23 23:00 07/08/23 23:00 Lab & Micro Results (Past 24 Hours) RBC 3.34 M/uL (4.70-6.10) L 07/09/23 WBC 10.64 K/ul (4.8-10.8) 07/09/23 Hgb 10.4 g/dl (14.0-18.0) L 07/09/23 Hct 31.8 % (42.0-52.0) L 07/09/23 MCV 95.2 fL (80.0-100.0) 07/09/23 MCH 31.1 pg (25.0-34.0) 07/09/23 MCHC 32.7 g/dL (32.0-36.0) 07/09/23 RDW Standard Deviation 45.6 fL (36.4-46.3) 07/09/23 RDW Coefficient of Variation 13.1 % (11.5-14.5) 07/09/23 Plt Count 186 K/uL (130-400) 07/09/23 MPV 10.8 fL (9.4-12.4) 07/09/23 Neutrophils (%) (Auto) 73.7 % 07/09/23 Lymphocytes (%) (Auto) 17.5 % 07/09/23 Monocytes # (Auto) 0.65 K/uL (0.11-0.59) H 07/09/23 Eosinophils # (Auto) 0.17 K/uL (0.00-0.50) 07/09/23 Immature Granulocyte % (Auto) 1.0 % 07/09/23 Neutrophils # (Auto) 7.84 K/uL (1.40-6.50) H 07/09/23 Lymphocytes # (Auto) 1.86 K/uL (1.20-3.40) 07/09/23 Monocytes # (Auto) 0.65 K/uL (0.11-0.59) H 07/09/23 Eosinophils # (Auto) 0.17 K/uL (0.00-0.50) 07/09/23 Basophils # (Auto) 0.01 K/uL (0.00-0.20) 07/09/23 Immature Granulocyte # (Auto) 0.11 K/uL (0.01-0.20) 4 Na 136 mmol/L (136-145) 07/09/23 K 4.1 mmol/L (3.5-5.1) 07/09/23 Cl 106 mmol/L (98-107) 07/09/23 CO2 25 mmol/L (21-32) 07/09/23 Anion Gap 5 (3-11) 07/09/23 BUN 26 mg/dl (6-23) H 07/09/23 Creatinine 0.54 mg/dl (0.6-1.4) L 07/09/23 Estimated GFR ( Amer) 125.0 ml/min 07/09/23 Estimated GFR (Non-Af Amer) 107.9 ml/min 07/09/23 BUN/Creatinine Ratio 48.1 (10-20) H 07/09/23 Glu 117 mg/dl (70-99(Fasting)) H 07/09/23 Ca 8.0 mg/dl (8.6-10.3) L 07/09/23 Phosphorus Level 3.7 mg/dl (2.5-4.9) 07/09/23 Mg 2.2 mg/dl (1.7-2.4) 07/09/23 04:08 Calcium Level 8.0 mg/dl (8.6-10.3) L 07/09/23 04:08 Arterial Blood pH 7.40 (7.35-7.45) 07/09/23 04:08 Arterial Blood Partial Pressure CO2 44 mmHg (35-46) 07/09/23 04 :08 Arterial Blood Partial Pressure O2 106 mmHg (80-95) H 07/09/23 04:08 Arterial Blood HCO3 27 mmol/L (19-24) H 07/09/23 04:08 Arterial Blood Base Excess 2.0 mEq/L (-9-1.8) H 07/09/23 04:08 Arterial Blood Oxygen Saturation 99.1 % (90-95) H 07/09/23 04:0 8 Blood Gas Oxygen Given 30% 07/09/23 04:08 Hernan Test Pos (Pos) 07/09/23 04:08 Microbiology 07/06/23 08:55 Gram Stain - Final Bronch Wash,Left Lower Lobe Bronchial Culture - Final Light normal gopi. Diagnostic Findings (Past 24 Hours) Chest X-Ray 07/09/23 07:00 XR chest 1V portable CLINICAL HISTORY: Respiratory failure. COMPARISON STUDY: Chest radiograph July 08, 2023. Chest CT June 30, 2023. FINDINGS: Tip of endotracheal tube is 3 cm above the dianelys. Elevation of the left hemidiaphragm is again noted. Nasogastric tube remains coiled within the stomach. This is unchanged. There is no pneumothorax. Small left pleural effusion is unchanged. Cardiomediastinal silhouette is stable. Pulmonary vascular congestion is unchanged. Left lower lung airspace opacities persist. Right infrahilar opacity is unchanged. IMPRESSION: 1. Satisfactory positioning of lines and tubes. 2. No significant change in appearance of the chest. Elevation of the left hemidiaphragm with a small left pleural effusion and left basilar airspace opacity. Stable right infrahilar opacity. ACT 112: Negative or not required by law. Electronically signed by: Mode Real M.D. 07/09/2023 8:04 AM I & O Totals 24 Hours 07/08/23 07/09/23 07/10/23 06:59 06:59 06:59 Intake Total 2269.532 / 2269.532 3417.255 / 3417.255 125.576 / 125.576 Output Total 1184 / 1184 1950 / 1950 Balance 1085.532 / 6320.692 8787.255 / 1466.255 125.576 / 125.576 Cumulative 06/29/23 17:51 thru 07/09/23 10:10 Intake Total 60626.942 Output Total 9608 Balance 7113.942 RT Ventilator Mngmt (Last Documented) Ventilator Ordered Settings Ventilator Support Mode Assist Control 07/09/23 07:23 Respiratory Rate 23 07/09/23 07:23 Ventilator Tidal Volume 350 07/09/23 07:23 Setting Minute Ventilation 8.2 07/09/23 07:23 Ventilator Positive Pressure 10 07/08/23 09 :00 Support Setting Positive End Expiratory 6 07/09/23 07:23 Pressure Fraction of Inspired Oxygen [ 70 07/02/23 03:25 Resting] Fraction of Inspired Oxygen 30 07/09/23 07:23 Peak Inspiratory Flow 28 07/09/23 07:23 Machine Comment Patient placed back on full 07/08/23 09:22 support after failing SBT. Ventilator - PT Measurements Respiratory Rate 23 Exhaled Tidal Volume 365 Minute Ventilation 8.2 Peak Inspiratory Airway 18 Pressure Plateau Pressure 16.0 Respiratory Cycle Inspiratory: 1:2.5 Expiratory Ratio Inspiratory Phase Time 1.0 End-Tidal CO2 30 Static Lung Compliance 36.50 Dynamic Lung Compliance 30.42 Normal Static Lung Compliance 47.00 Patient Measurements Comment extubated patient to 5L NC per dr. elias Coding Level of Care Code 83446 SUB INP/OBS CARE 3/50MIN Diagnoses Pneumonia J18.9 Laterality: unspecified laterality Lung location: unspecified part of lung Pneumonia type: due to unspecified organism Acute on chronic respiratory failure with hypoxia and hypercapnia J96.21; J96.22 Influenza due to identified 2008 H1N1 influenza virus with pneumonia J10.00 Chronic pulmonary aspiration T17.908A Vocal cord weakness J38.00 Chronically elevated hemidiaphragm J98.6 (1) Pneumonia Laterality: unspecified laterality Lung location: unspecified part of lung Pneumonia type: due to unspecified organism Qualified Code(s): J18.9 - Pneumonia, unspecified organism
[2023-07-09] MEDS: HEPARIN SOD 5,000 UNIT/0.5 ML VIAL SQ SCH ×2 (11:05→21:38)
--- NOTE | 2023-07-09 12:46 | Hospitalist Progress Note ---
Date of Service July 09, 2023 Assessment & Plan (1) Acute on chronic respiratory failure with hypoxia and hypercapnia: Plan: acute component 2nd to fluA infection, b/l pneumonia left (severe) > right, left lung mucous plugging, COPD with exacerbation (early in the stay he had had wheezing), pulmonary edema. These issues were treated and largely resolved. chronic component - COPD, left-sided hemidiaphragm elevation, vocal cord paralysis leading to difficulty protecting airway/managing secretions Had bronchoscopy 07/01 notable for mucus plugging on L WORSE on 07/05/23 - CXR at that time with DEANNA again opacified much like a few days ago. Previous collapse of DEANNA was due to mucous plugging s/p [facility] 07[facility]06, bronchoscopy by Dr Moore showing the following - "The right mainstem, right upper lobe, right middle lobe, and right lower lobe were all widely patent with thin secretions present. The mucosa appeared normal. The left mainstem bronchus was widely patent. The left upper lobe and lingula takeoff were patent but demonstrated dynamic collapse with respiration. The left lower lobe bronchi was significantly collapsed." Antibiotics stopped per ICU team, since no evidence of ongoing pneumonia 07/07 failed SBT but passed AM of 07/09 and was extubated. Prior to that on 07/09 had bronchoscopy with findings of thin secretions and no mucus plugging. CXR film and report reviewed today and is stable with some L base opacity and effusion unchanged. WBC down from 13-->10 today. (2) Pneumonia: Plan: DEANNA/LLL extensive, severe bacterial superinfection in the setting of fluA infection completed 7 days of cefepime then zosyn, also completed 6 days of atypical coverage with doxy 100mg BID s/p bronch 07/01/[address] Capps - large mucous plugging found in the left bronchial tree; plugs removed all bronch cultures negative to date - no specific bacterial pathogen identified PJP, histo, blasto, and cocci studies that were sent to [facility] lab returned negative s/p bronch 07/[address] Moore without evidence of mucus plugging or ongoing secretions suggestive of pneumonia - antibiotics stopped at that point bronch 07/[address] Moore again with only thin secretions continue monitoring off ABX (3) Influenza due to identified 2009 H1N1 influenza virus with pneumonia: Plan: fluA infection tamiflu 75mg BID x 5 days - course completed (4) Sepsis: Plan: 2nd influenza A infection 2nd left-sided pneumonia (5) Vocal cord paralysis: Plan: history of such per records reason for vocal cord paralysis is likely his cervical myelopathy or prior cspine surgery big risk factor for aspiration events as he cannot protect his airway (6) Positive blood culture: Plan: coag neg staph, 2/8 bottles, and alpha strep 1/8 bottles. likely contaminants (7) Chronically elevated hemidiaphragm: Plan: left-side etiology uncertain present for several years has seen [facility] for this as outpatient as well as thoracic surgery at [place] three years ago - not amenable to surgical intervention and too weak to tolerate at this time. Contributes to recurrent LLL collapse and mucus plugging. (8) COPD (chronic obstructive pulmonary disease): Plan: with exacerbation treated with solumedrol earlier in hospital course. prior to admission was on prednisone 5 mg qod for chronic pain? steroids discontinued at risk for secondary adrenal insufficiency - monitor, if hypotensive consider stress dose steroids (9) Hypertension: Plan: not on meds for such follow BPs for now (10) Myelopathy concurrent with and due to spinal stenosis of cervical region: Plan: severe 04/2020 - extensive c-spine surgery by Dr Álvarez outpatient pulmonary note from 2020 suggests that some of his vocal cord paralysis +/- hemidiaphragm elevation could be from prior surgery vs the c-spine disease itself (11) Depression: Plan: cont all home meds (12) Opioid dependence: Plan: typically on oxycodone 15mg q4h prn takes narcotics for chronic back/neck pain PDMP shows chronic prescriptions for oxy 10's just recently his dose was increased to 15mg tabs as outpatient defer narcotic management to ICU (13) Acute metabolic encephalopathy: Plan: multifactorial - influenza infection, left-sided pneumonia, hypercapnia, hypoxia, meds for sedation for bronch now intubated (14) Hypophosphatemia: Plan: replaced (15) Acid reflux: Plan: takes pepcid daily at home was having frequent reflux symptoms this entire stay before intubation continue acid suppression with PPI CT chest showed esophageal wall thickening which is suggestive of esophagitis diflucan started as empiric treatment for possible maxwell esophagitis but in interval stopped by ICU team (16) DVT prophylaxis: Plan: lovenox daily Plan Goals of care - Family meeting at bedside 07/[address] Moore, Dr Parikh from palliative care team, myself and Mr. Fleming's son and daughter in law. Mr. Fleming has stated in past he did not want trach, half-way mechanical ventilation, SNF. Trial of bipap is reasonable if he can tolertate it (which he has tolerated poorly in the past), if he were to be reintubated would require trach for hope of improvement, which he had stated in the past he did not want. Admission and Anticipated Discharge Date Admission Date: June 29, 2023 Subjective Passed SBT this am and was extubated shortly before I saw him. Was still mildly sedated though awake and answered some yes/no questions. Denied any chest or abdominal pain. Tachypneic and tachycardic at this time. Physical Exam 2 Physical Exam: PHYSICAL EXAMINATION Last 24h vital signs reviewed, see documentation in flowsheet General: lying on side, has been extubated HEENT: Normocephalic, atraumatic, pupils round and equal, sclerae anicteric, no conjunctival injection, moist mucus membranes Lungs: clear anteriorly and mildly coarse posteriorly, diminished in L mid/base but breath sounds present, tachypneic Heart: tachycardic Regular rate and rhythm, no murmurs. No JVD Abdomen: Soft, nontender, nondistended. Bowel sounds present. Extremities: Warm, dry, well-perfused. No extremity edema. Neuro: face symmetric, eduar, sedated but said yes and no to a few questions, moving 4 ext spontaneously Psych: unable to assess Results & Data Results & Data Vital Signs (Past 12 Hours) Vital Signs Temp Pulse Pulse Resp BP Pulse Ox O2 Del Method 07/09/23 11:29 117 H 20 100 Nasal Cannula 07/09/23 10:34 Mechanical Vent 07/09/23 10:00 158/82 H 07/09/23 10:00 37.9 C H 105 H 36 H 98 Nasal Cannula 07/09/23 09:10 Nasal Cannula 07/09/23 09:00 38.0 C H 123 H 21 94 07/09/23 09:00 137/93 07/09/23 08:00 136/92 07/09/23 08:00 37.9 C H 125 H 24 94 07/09/23 08:00 83 07/09/23 07:23 83 23 97 01/11/24 07:00 37.8 C H 86 26 H 97 Mechanical Vent 07/09/23 07:00 115/79 07/09/23 05:30 37.6 C H 84 25 H 96 07/09/23 05:15 37.5 C 88 30 H 95 07/09/23 05:00 37.5 C 88 28 H 94 07/09/23 05:00 120/64 07/09/23 04:12 74 16 98 07/09/23 04:00 37.5 C 72 16 99 07/09/23 04:00 121/78 07/09/23 04:00 07/09/23 03:00 37.5 C 63 16 96 07/09/23 03:00 105/67 07/09/23 02:00 37.6 C H 63 16 96 07/09/23 02:00 95/66 L 07/09/23 01:01 65 16 96 07/09/23 01:00 37.6 C H 63 16 96 07/09/23 01:00 98/67 L O2 Flow Rate FiO2 07/09/23 11:29 5 07/09/23 10:34 07/09/23 10:00 07/09/23 10:00 5 07/09/23 09:10 5 07/09/23 09:00 07/09/23 09:00 07/09/23 08:00 07/09/23 08:00 07/09/23 08:00 07/09/23 07:23 30 07/09/23 07:00 07/09/23 07:00 07/09/23 05:30 07/09/23 05:15 07/09/23 05:00 07/09/23 05:00 07/09/23 04:12 30 07/09/23 04:00 07/09/23 04:00 07/09/23 04:00 30 07/09/23 03:00 07/09/23 03:00 07/09/23 02:00 07/09/23 02:00 07/09/23 01:01 30 07/09/23 01:00 07/09/23 01:00 Laboratory Results 07/09/23 04:08 07/09/23 04:08 Diagnostic Findings Chest X-Ray 01/11/24 07:00 XR chest 1V portable CLINICAL HISTORY: Respiratory failure. COMPARISON STUDY: Chest radiograph July 08, 2023. Chest CT June 30, 2023. FINDINGS: Tip of endotracheal tube is 3 cm above the dianelys. Elevation of the left hemidiaphragm is again noted. Nasogastric tube remains coiled within the stomach. This is unchanged. There is no pneumothorax. Small left pleural effusion is unchanged. Cardiomediastinal silhouette is stable. Pulmonary vascular congestion is unchanged. Left lower lung airspace opacities persist. Right infrahilar opacity is unchanged. IMPRESSION: 1. Satisfactory positioning of lines and tubes. 2. No significant change in appearance of the chest. Elevation of the left hemidiaphragm with a small left pleural effusion and left basilar airspace opacity. Stable right infrahilar opacity. ACT 112: Negative or not required by law. Electronically signed by: Mode Real M.D. 07/09/2023 8:04 AM PG Care Time/CCT Total # of Minutes Spent Total Time Spent with Patient: Total time spent is greater than 50% in coordination of care (as documented) at patient's floor/unit and/or counseling patient: Coding Level of Care Code 57030 SUB INP/OBS CARE 2/35MIN Diagnoses Acute on chronic respiratory failure with hypoxia and hypercapnia J96.21; J96.22 Pneumonia J18.9 Laterality: unspecified laterality Lung location: unspecified part of lung Pneumonia type: due to unspecified organism Influenza due to identified 2009 H1N1 influenza virus with pneumonia J10.00 Sepsis A41.9 Sepsis acute organ dysfunction status: unspecified Sepsis type: sepsis due to unspecified organism Vocal cord paralysis J38.00 Positive blood culture R78.81 Chronically elevated hemidiaphragm J98.6 Chronic obstructive pulmonary disease, unspecified COPD type J44.9 COPD type: unspecified COPD Primary hypertension I10 Hypertension type: primary hypertension Myelopathy concurrent with and due to spinal stenosis of cervical region M48.02; G99.2 Depression F32.0 Active/Remission status: currently active Depression Type: major depressive disorder Major depression episode severity: mild Major depression recurrence: single episode Opioid dependence F11.20 Acute metabolic encephalopathy G93.41 Hypophosphatemia E83.39 Acid reflux K21.9 DVT prophylaxis Z29.9 (2) Pneumonia Laterality: unspecified laterality Lung location: unspecified part of lung P neumonia type: due to unspecified organism Qualified Code(s): J18.9 - Pneumonia, unspecified organism (4) Sepsis Sepsis acute organ dysfunction status: unspecified Sepsis type: sepsis due to unspecified organism Qualified Code(s): A41.9 - Sepsis, unspecified organism (8) COPD (chronic obstructive pulmonary disease) COPD type: unspecified COPD Qualified Code(s): J44.9 - Chronic obstructive pulmonary disease, unspecified (9) Hypertension Hypertension type: primary hypertension Qualified Code(s): I10 - Essential (primary) hypertension (11) Depression Active/Remission status: currently active Depression Type: major depressive disorder Major depression episode severity: mild Major depression recurrence: single episode Qualified Code(s): F32.0 - Major depressive disorder, single episode, mild
[2023-07-09] MEDS: GABAPENTIN 800 MG TAB PO SCH ×2 (14:02→21:38)
[2023-07-09] MEDS: GABAPENTIN 100 MG CAP PO SCH ×2 (14:02→21:38)
[2023-07-09] MEDS ORDERED: PROMETHAZINE HCL 25 MG TAB PO PRN (17:25)
[2023-07-09] MEDS: SODIUM CHLOR 7% 4 ML NEB NEB SCH (20:18)
[2023-07-09] MEDS: ATORVASTATIN 10 MG TAB PO SCH (21:36)
[2023-07-09] MEDS: MIRTAZAPINE TAB 15 MG TAB PO SCH (21:40)
[2023-07-10 04:59] LABS: HCO3 ABG 35 mmol/L (19-24); Oxygen Saturation ABG 98.6 % (90-95); PCO2 ABG 65 mmHg (35-46); PO2 ABG 97 mmHg (80-95); pH ABG 7.34 (7.35-7.45)
[2023-07-10 05:04] LABS: Allen Test Pos (Pos)
[2023-07-10] MEDS: ICU ELECTROLYTE REPLACEMENT PROTOCOL SCH (05:18)
[2023-07-10 05:20] LABS: Calcium 8.3 mg/dl (8.6-10.3); Magnesium 2.2 mg/dl (1.7-2.4); Potassium 4.2 mmol/L (3.5-5.1)
[2023-07-10 05:25] LABS: BUN Creatinine Ratio 32.7 (10-20); Creatinine Clr Calc Pharmacy 134.1 ml/min; Est GFR (African American) 130.1 ml/min; Est GFR (Non-African American) 112.3 ml/min; Phosphorus 4.3 mg/dl (2.5-4.9)
[2023-07-10] MEDS: ALBUT/IPRATROP 3MG/0.5MG NEB 3 ML VIAL NEB SCH ×5 (07:09→21:55)
[2023-07-10] MEDS: SODIUM CHLOR 7% 4 ML NEB NEB SCH ×2 (07:09→19:47)
[2023-07-10] MEDS ORDERED: ACETAMINOPHEN 325 MG TAB PO PRN (07:47)
--- NOTE | 2023-07-10 07:55 | Critical Care Progress Note ---
Date of Service July 10, 2023 Assessment & Plan (1) Pneumonia: (2) Acute on chronic respiratory failure with hypoxia and hypercapnia: (3) Influenza due to identified 2009 H1N1 influenza virus with pneumonia: (4) Chronic pulmonary aspiration: (5) Vocal cord weakness: (6) Chronically elevated hemidiaphragm: Plan Impression: 67-year-old male with a history of chronically elevated left hemidiaphragm and vocal cord paralysis with probable recurrent aspiration admitted with left-sided weakness and cough. Placed on BiPAP. Dense infiltrate in the left and underwent bronchoscopy with removal of mucous plug. He unfortunately continued to fail despite aggressive pulmonary toilet and broad- spectrum antibiotics and was transferred to the ICU 07/05/2023 for consideration of repeat bronchoscopy and intubation. 24-hour events: Patient was extubated. He declined BiPAP last evening. Has been hemodynamically stable. Recommendations: 1. Neurologic: Sedatives off. Continuing to address his chronic pain issues. Continue gabapentin, Wellbutrin, and BuSpar. Remeron at night for sleep. Using methadone for chronic pain which appears to be working reasonably well. Can consider as needed oxycodone if the patient has breakthrough pain. PT OT 2. Respiratory: Hypoxemic respiratory failure is largely due to atelectasis of the left lung with concomitant elevation of the hemidiaphragm. The importance of adherence to noninvasive positive pressure ventilation was again stressed to the patient. If he fails its likely going to be due to secretion management. Recommend out of bed to chair as tolerated and ambulate. Will continue aggressive pulmonary toilet with incentive spirometry and flutter valve. Blood gas this morning did show recurrent hypercarbic respiratory failure with a pH of 7.34 and a CO2 of 65. Patient was again advised that BiPAP is the therapy of choice for this given his diaphragmatic dysfunction. Would not recommend pursuing repeat intubation mechanical ventilation most the patient would be agreeable to tracheostomy if he continues to decline BiPAP 3. Cardiovascular: Hemodynamically stable. 4. GI: Advancing diet as tolerated. 5. Renal: No acute issues. Continue ICU electrolyte replacement protocol 6. Endocrine: Glycemic control per protocol. Holding off on restarting prednisone 7. ID: Influenza H1 N1 infection. The patient has completed 5 days of Tamiflu. He has completed 6 days of doxycycline and 7 days of Zosyn as well as 5 days of vancomycin, 2 days of cefepime, and 1 day of Rocephin. Bronchoscopy cultures unrevealing to date. Should the patient develop persistent fever, repeat evaluation would be indicated 8. Heme-onc:. Mild anemia. Continue to follow at this point in time. No indication for transfusion. Respiratory status is stable. At this point time I think he can be transitioned out of the intensive care unit to the floor. He is at risk for clinical deterioration. Will continue to follow for pulmonary issues Admission and Anticipated Discharge Date Admission Date: June 29, 2023 Subjective Patient seen and examined. EMR reviewed. Discussed with bedside critical care nurse and with patient at bedside and on multidisciplinary rounds. Patient was extubated yesterday. He states he is doing okay. He is sitting in bed working on breakfast this morning. He is not having any dysphagia or swallowing difficulties. He declined positive airway pressure ventilation again last night. He does not report significant fevers chills or night sweats. His cough is not particularly productive. He has not yet been out of bed to chair with physical therapy or occupational therapy but these have been ordered for today. His medical history and review of systems is otherwise unchanged Review of Systems Review of Systems: All systems reviewed & are unremarkable except as noted in Subjective Physical Exam Constitutional: Patient is extubated on nasal cannula. He is awake and alert. Neck: trachea midline, no thyromegaly Respiratory: no labored breathing, no cough and not tachypneic Auscultation: + rhonchi; no crackles and no wheezes Cardiovascular: RRR, no murmur, no edema Gastrointestinal (Abdomen): normal bowel sounds, soft, nontender, no hepatosplenomegaly Musculoskeletal: Extremities: extremities normal to inspection Skin: no rashes, warm and dry Lymphatic: no cervical lymphadenopathy Results & Data Results & Data Vital Signs (Past 12 Hours) Vital Signs Temp Pulse Pulse Resp BP Pulse Ox O2 Del Method 07/10/23 07:09 103 H 19 97 Nasal Cannula 07/10/23 06:00 113/65 07/10/23 06:00 37.8 C H 95 H 16 97 07/10/23 05:00 37.7 C H 91 H 18 96 07/10/23 05:00 119/61 07/10/23 04:00 120/70 07/10/23 04:00 37.6 C H 95 H 17 97 07/10/23 03:00 37.5 C 101 H 17 95 01/12/24 03:00 125/72 07/10/23 02:00 37.4 C 99 H 15 96 07/10/23 02:00 126/66 07/10/23 01:00 120/65 07/10/23 01:00 37.5 C 95 H 15 94 07/10/23 00:00 37.5 C 91 H 26 H 90 07/10/23 00:00 114/64 07/09/23 23:38 106 H 23 92 07/09/23 23:00 37.5 C 95 H 17 94 07/09/23 23:00 142/79 H 07/09/23 22:00 37.5 C 87 20 95 07/09/23 22:00 139/85 07/09/23 21:00 37.1 C 100 H 38 H 96 07/09/23 20:19 102 H 20 96 Nasal Cannula 07/09/23 20:00 Nasal Cannula 07/09/23 20:00 37.2 C 92 H 18 97 07/09/23 20:00 109/61 O2 Flow Rate FiO2 07/10/23 07:09 2 07/10/23 06:00 07/10/23 06:00 07/10/23 05:00 07/10/23 05:00 07/10/23 04:00 07/10/23 04:00 07/10/23 03:00 07/10/23 03:00 07/10/23 02:00 07/10/23 02:00 07/10/23 01:00 07/10/23 01:00 07/10/23 00:00 07/10/23 00:00 07/09/23 23:38 30 07/09/23 23:00 07/09/23 23:00 07/09/23 22:00 07/09/23 22:00 07/09/23 21:00 07/09/23 20:19 3 07/09/23 20:00 5 07/09/23 20:00 07/09/23 20:00 Critical Care Results & Data Vital Signs (Past 12 Hours) Vital Signs Temp Pulse Pulse Resp BP Pulse Ox O2 Del Method 07/10/23 07:09 103 H 19 97 Nasal Cannula 07/10/23 06:00 113/65 07/10/23 06:00 37.8 C H 95 H 16 97 07/10/23 05:00 37.7 C H 91 H 18 96 07/10/23 05:00 119/61 07/10/23 04:00 120/70 07/10/23 04:00 37.6 C H 95 H 17 97 07/10/23 03:00 37.5 C 101 H 17 95 07/10/23 03:00 125/72 07/10/23 02:00 37.4 C 99 H 15 96 07/10/23 02:00 126/66 07/10/23 01:00 120/65 07/10/23 01:00 37.5 C 95 H 15 94 07/10/23 00:00 37.5 C 91 H 26 H 90 07/10/23 00:00 114/64 07/09/23 23:38 106 H 23 92 07/09/23 23:00 37.5 C 95 H 17 94 07/09/23 23:00 142/79 H 07/09/23 22:00 37.5 C 87 20 95 07/09/23 22:00 139/85 07/09/23 21:00 37.1 C 100 H 38 H 96 07/09/23 20:19 102 H 20 96 Nasal Cannula 07/09/23 20:00 Nasal Cannula 07/09/23 20:00 37.2 C 92 H 18 97 07/09/23 20:00 109/61 O2 Flow Rate FiO2 07/10/23 07:09 2 07/10/23 06:00 07/10/23 06:00 07/10/23 05:00 07/10/23 05:00 07/10/23 04:00 07/10/23 04:00 07/10/23 03:00 07/10/23 03:00 07/10/23 02:00 07/10/23 02:00 07/10/23 01:00 07/10/23 01:00 07/10/23 00:00 07/10/23 00:00 07/09/23 23:38 30 07/09/23 23:00 07/09/23 23:00 07/09/23 22:00 07/09/23 22:00 07/09/23 21:00 07/09/23 20:19 3 07/09/23 20:00 5 07/09/23 20:00 07/09/23 20:00 Lab & Micro Results (Past 24 Hours) No Data to Display No Data to Display Arterial Blood pH 7.34 (7.35-7.45) L 07/10/23 04:27 Arterial Blood Partial Pressure CO2 65 mmHg (35-46) H 07/10/23 04:27 Arterial Blood Partial Pressure O2 97 mmHg (80-95) H 07/10/23 0 4:27 Arterial Blood HCO3 35 mmol/L (19-24) H 07/10/23 04:27 Arterial Blood Base Excess 7.0 mEq/L (-9-1.8) H 07/10/23 04:27 Arterial Blood Oxygen Saturation 98.6 % (90-95) H 07/10/23 04:2 7 Blood Gas Oxygen Given 2L 07/10/23 04:27 Hernan Test Pos (Pos) 07/10/23 04:27 Diagnostic Findings (Past 24 Hours) Chest X-Ray 07/09/23 07:00 XR chest 1V portable CLINICAL HISTORY: Respiratory failure. COMPARISON STUDY: Chest radiograph July 08, 2023. Chest CT June 30, 2023. FINDINGS: Tip of endotracheal tube is 3 cm above the dianelys. Elevation of the left hemidiaphragm is again noted. Nasogastric tube remains coiled within the stomach. This is unchanged. There is no pneumothorax. Small left pleural effusion is unchanged. Cardiomediastinal silhouette is stable. Pulmonary vascular congestion is unchanged. Left lower lung airspace opacities persist. Right infrahilar opacity is unchanged. IMPRESSION: 1. Satisfactory positioning of lines and tubes. 2. No significant change in appearance of the chest. Elevation of the left hemidiaphragm with a small left pleural effusion and left basilar airspace opacity. Stable right infrahilar opacity. ACT 112: Negative or not required by law. Electronically signed by: Mode Real M.D. 07/09/2023 8:04 AM I & O Totals 24 Hours 07/09/23 07/10/23 07/11/23 06:59 06:59 06:59 Intake Total 3417.255 / 3417.255 125.576 / 125.576 Output Total 1950 2975 / 2975 Balance 1466.255 / 1466.255 -2849.424 / -2849.424 Cumulative 06/29/23 17:51 thru 07/10/23 06:00 Intake Total 77895.942 Output Total 43082 Balance 4138.942 RT Ventilator Mngmt (Last Documented) Ventilator Ordered Settings Ventilator Support Mode Assist Control 07/09/23 07:23 Respiratory Rate 19 07/10/23 07:09 Ventilator Tidal Volume 350 07/09/23 07:23 Setting Minute Ventilation 8.2 07/09/23 07:23 Ventilator Positive Pressure 10 07/08/23 09:00 Support Setting Positive End Expiratory 6 07/09/23 07:23 Pressure Fraction of Inspired Oxygen [ 70 07/02/23 03:25 Resting] Fraction of Inspired Oxygen 30 07/09/23 23:38 Peak Inspiratory Flow 28 07/09/23 07:23 Machine Comment Patient placed back on full 07/08/23 09:22 support after failing SBT. Ventilator - PT Measurements Respiratory Rate 19 Exhaled Tidal Volume 365 Minute Ventilation 8.2 Peak Inspiratory Airway 18 Pressure Plateau Pressure 16.0 Respiratory Cycle Inspiratory: 1:2.5 Expiratory Ratio Inspiratory Phase Time 1.0 End-Tidal CO2 24 Static Lung Compliance 36.50 Dynamic Lung Compliance 30.42 Normal Static Lung Compliance 47.00 Patient Measurements Comment extubated patient to 5L NC per dr. elias Coding Level of Care Code 36228 SUB INP/OBS CARE 3/50MIN Diagnoses Pneumonia J18.9 Laterality: unspecified laterality Lung location: unspecified part of lung Pneumonia type: due to unspecified organism Acute on chronic respiratory failure with hypoxia and hypercapnia J96.21; J96.22 Influenza due to identified 2009 H1N1 influenza virus with pneumonia J10.00 Chronic pulmonary aspiration T17.908A Vocal cord weakness J38.00 Chronically elevated hemidiaphragm J98.6 (1) Pneumonia Laterality: unspecified laterality Lung location: unspecified part of lung Pneumonia type: due to unspecified organism Qualified Code(s): J18.9 - Pneumonia, unspecified organism
--- NOTE | 2023-07-10 08:06 | XRay Report ---
XR chest 1V portable CLINICAL HISTORY: Respiratory failure. COMPARISON STUDY: Chest radiograph July 09, 2023. FINDINGS: The endotracheal and nasogastric tubes have been removed. Postoperative findings within the cervical spine are incidentally noted. Cardiomegaly is unchanged. There is no pneumothorax. Small le ft pleural effusion is unchanged. There is a trace right pleural effusion. Mild right basilar opacity is unchanged. Left lung airspace opacity with diminished aeration has slightly increased. Elevation of the left hemidiaphragm is again noted. IMPRESSION: 1. Increase in left lung airspace opacity which could reflect pneumonia or atelectasis. Stable elevat ion of the left hemidiaphragm. 2. Small left and trace right pleural effusions. ACT 112: Negative or not required by law. Electronically signed by: Mode Real M.D. 07/10/2023 8:05 AM
[2023-07-10] MEDS: CALCIUM 600MG + VIT D 400 IU TAB PO SCH ×2 (08:10→20:25)
[2023-07-10] MEDS: PANTOprazole 40 MG TAB PO SCH (08:10)
[2023-07-10] MEDS: busPIRone 15 MG TAB PO SCH ×2 (08:10→20:23)
[2023-07-10] MEDS: METHADONE HCL 5 MG TAB PO SCH ×2 (08:10→20:33)
[2023-07-10] MEDS: CEROVITE ADV FORMULA TAB PO SCH (08:10)
[2023-07-10] MEDS: THIAMINE HCL 100 MG TAB PO SCH (08:10)
[2023-07-10] MEDS: GABAPENTIN 800 MG TAB PO SCH (08:11)
[2023-07-10] MEDS: DOCUSATE SODIUM 100 MG CAP PO SCH (08:11)
[2023-07-10] MEDS: DOCUSATE SODIUM/SENNA 50/8.6MG TAB PO SCH (08:11)
[2023-07-10] MEDS: HEPARIN SOD 5,000 UNIT/0.5 ML VIAL SQ SCH ×2 (08:12→20:29)
[2023-07-10] MEDS: GABAPENTIN 100 MG CAP PO SCH ×3 (08:12→20:29)
[2023-07-10] MEDS: buPROPion XL 150 MG TABCR PO SCH (11:41)
[2023-07-10] MEDS ORDERED: SENNA 8.6 MG TAB PO PRN (12:42)
[2023-07-10] MEDS ORDERED: POLYETHYLENE (MIRALAX) 17 GM PACK PO PRN (12:42)
[2023-07-10] MEDS: ACETAMINOPHEN 325 MG TAB PO SCH ×3 (13:03→20:19)
--- NOTE | 2023-07-10 14:05 | Hospitalist Progress Note ---
Date of Service July 10, 2023 Assessment & Plan (1) Acute on chronic respiratory failure with hypoxia and hypercapnia: Plan: acute component 2nd to fluA infection, b/l pneumonia left (severe) > right, left lung mucous plugging, COPD with exacerbation (early in the stay he had had wheezing), pulmonary edema. These issues were treated and largely resolved. chronic component - COPD, left-sided hemidiaphragm elevation, vocal cord paralysis leading to difficulty protecting airway/managing secretions He is very deconditioned at this point which contributes to respiratory muscle weakness. Had bronchoscopy 07/01 notable for mucus plugging on L WORSE on 07/05/23 - CXR at that time with DEANNA again opacified. Previous collapse of DEANNA was due to mucous plugging s/p [facility], bronchoscopy by Dr Moore showing the following - "The right mainstem, right upper lobe, right middle lobe, and right lower lobe were all widely patent with thin secretions present. The mucosa appeared normal. The left mainstem bronchus was widely patent. The left upper lobe and lingula takeoff were patent but demonstrated dynamic collapse with respiration. The left lower lobe bronchi was significantly collapsed." Antibiotics stopped per ICU team, since no evidence of ongoing pneumonia 07/07 failed SBT but passed AM of 07/09 and was extubated. Prior to that on 07/09 had bronchoscopy with findings of thin secretions and no mucus plugging. -refused Bipap again pm of 07/09 -currently stable on 2L O2, remains confused but improved. CXR today reviewed - similar, some increase in L sided opacity -discussed with Dr. Moore, ICU would not reintubate unless decision is to proceed with trach, transferring to PCU status -I attempted to have conversation about this with Jules today, were he to worsen again presented option of reintubation with trach vs keep him comfortable and allow him to pass away naturally. At this point he is unable to fully understand these options to make a decision, said "that doesn't sound good" to trach, "what does my son think," and "I prefer to be kept comfortable and to live" -I updated his son Jules by phone today, addressed the above question again and his dad's response, he could not give me a decision right now and said it "depends on how long it goes before he needs it" (2) Pneumonia: Plan: DEANNA/LLL extensive, severe bacterial superinfection in the setting of fluA infection completed 7 days of cefepime then zosyn, also completed 6 days of atypical coverage with doxy 100mg BID s/p bronch 07/01/[address] Capps - large mucous plugging found in the left bronchial tree; plugs removed all bronch cultures negative to date - no specific bacterial pathogen identified PJP, histo, blasto, and cocci studies that were sent to [facility] lab returned negative s/p bronch 07/[address] Moore without evidence of mucus plugging or ongoing secretions suggestive of pneumonia - antibiotics stopped at that point bronch 07/[address] Moore again with only thin secretions continue monitoring off ABX (3) Vocal cord paralysis: Plan: history of such per records reason for vocal cord paralysis is likely his cervical myelopathy or prior cspine surgery big risk factor for aspiration events as he cannot protect his airway voice is not hoarse currently (4) Chronically elevated hemidiaphragm: Plan: left-side etiology uncertain present for several years [facility] as well as thoracic surgery at [place] three years ago - not amenable to surgical intervention and too weak to tolerate at this time. Contributes to recurrent DEANNA collapse and mucus plugging. (5) COPD (chronic obstructive pulmonary disease): Plan: with exacerbation treated with solumedrol earlier in hospital course. prior to admission was on prednisone 5 mg qod for chronic pain? steroids discontinued at risk for secondary adrenal insufficiency - monitor, if hypotensive consider stress dose steroids (6) Positive blood culture: Plan: coag neg staph, 2/8 bottles, and alpha strep 1/8 bottles. likely contaminants (7) Influenza due to identified 2008 H1N1 influenza virus with pneumonia: Plan: fluA infection tamiflu 75mg BID x 5 days - course completed (8) Sepsis: Plan: 2nd influenza A infection 2nd left-sided pneumonia resolved (9) Hypertension: Plan: not on meds for such follow BPs, normotensive (10) Myelopathy concurrent with and due to spinal stenosis of cervical region: Plan: severe 04/2020 - extensive c-spine surgery by Dr Álvarez outpatient pulmonary note from 2020 suggests that some of his vocal cord paralysis +/- hemidiaphragm elevation could be from prior surgery vs the c-spine disease itself (11) Depression: Plan: cont mirtazapine and buspar. consider decreasing doses if remaining confused/sedated (12) Opioid dependence: Plan: typically on oxycodone 15mg q4h prn takes narcotics for chronic back/neck pain PDMP shows chronic prescriptions for oxy 10's just recently his dose was increased to 15mg tabs as outpatient opioids will contribute to respiratory failure and encephalopathy. No pain currently. in ICU has been on sedation drips and methadone 5 mg bid. ordered this to continue, plan to taper, and oxycodone 5 mg q4h prn (13) Acute metabolic encephalopathy: Plan: multifactorial - influenza infection, left-sided pneumonia, hypercapnia, hypoxia, meds for sedation for bronch reduced gabapentin to 100 mg tid opioids as above may need to reduce mirtazapine or buspar remains confused but improved compared to 07/09 (14) Hypophosphatemia: Plan: replaced (15) Acid reflux: Plan: takes pepcid daily at home was having frequent reflux symptoms this entire stay before intubation continue acid suppression with PPI CT chest showed esophageal wall thickening which is suggestive of esophagitis (16) DVT prophylaxis: Plan: lovenox daily Plan Goals of care - Family meeting at bedside 07/[address] Moore, Dr Parikh from palliative care team, myself and Mr. Fleming's son and daughter in law. Mr. 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 Trial of bipap is reasonable if he can tolertate it (which he has tolerated poorly in the past), if he were to be reintubated would require trach for hope of improvement, which he had stated in the past he did not want. Discussed with Jules and his son 07/10 but no decision on this. See above. Admission and Anticipated Discharge Date Admission Date: June 29, 2023 Subjective Jules was extubated yesterday AM, last night he refused bipap, this morning remains confused but much improved compared to yesterday. Got lightheaded short of breath and tachycardic with attempt at PT, trial of sitting on EOB. Has been on 2L O2 throughout today. mildly short of breath +cough and denies pain. Physical Exam 2 Physical Exam: PHYSICAL EXAMINATION Last 24h vital signs reviewed, see documentation in flowsheet General: weak appearing, lying on L side in ICU bed HEENT: Normocephalic, atraumatic, pupils round and equal, sclerae anicteric, no conjunctival injection, moist mucus membranes Lungs: clear anteriorly and posteriorly, diminished in L base, mildly tachypneic Heart: mild tachy Regular rate and rhythm, no murmurs. No JVD Abdomen: Soft, nontender, nondistended. Bowel sounds present. Extremities: Warm, dry, well-perfused. No extremity edema. Neuro: face symmetric, eduar, awake and alert able to hold conversation but some confusion present, oriented to hospital but thinks he's in [facility], recall of hospital events to date is poor, lacks insight into situation, moving 4 ext spontaneously and equally Psych: calm, normal affect and behavior Results & Data Results & Data Vital Signs (Past 12 Hours) Vital Signs Temp Pulse Pulse Resp BP Pulse Ox O2 Del Method 07/10/23 13:00 97 H 17 95 07/10/23 12:05 127/71 07/10/23 12:05 103 H 23 93 07/10/23 12:00 99 H 19 94 07/10/23 11:00 114/69 07/10/23 11:00 94 H 20 97 07/10/23 11:00 37.5 C 117 H 22 95 Nasal Cannula 07/10/23 10:44 88 17 90 Room Air 07/10/23 10:29 37.1 C 07/10/23 10:00 123/85 07/10/23 10:00 38.1 C H 91 H 17 93 07/10/23 09:35 Nasal Cannula 07/10/23 09:00 130/84 07/10/23 09:00 38.2 C H 115 H 25 H 94 07/10/23 08:00 38.0 C H 114 H 15 92 07/10/23 08:00 121/90 07/10/23 08:00 Nasal Cannula 07/10/23 08:00 107 H 07/10/23 07:09 103 H 19 97 Nasal Cannula 07/10/23 07:00 37.9 C H 95 H 20 95 07/10/23 07:00 145/87 H 07/10/23 06:00 113/65 07/10/23 06:00 37.8 C H 95 H 16 97 07/10/23 05:00 37.7 C H 91 H 18 96 07/10/23 05:00 119/61 07/10/23 04:00 120/70 07/10/23 04:00 37.6 C H 95 H 17 97 07/10/23 03:00 37.5 C 101 H 17 95 07/10/23 03:00 125/72 07/10/23 02:00 37.4 C 99 H 15 96 07/10/23 02:00 126/66 O2 Flow Rate 07/10/23 13:00 07/10/23 12:05 07/10/23 12:05 07/10/23 12:00 07/10/23 11:00 07/10/23 11:00 07/10/23 11:00 2 07/10/23 10:44 07/10/23 10:29 07/10/23 10:00 07/10/23 10:00 07/10/23 09:35 07/10/23 09:00 07/10/23 09:00 07/10/23 08:00 07/10/23 08:00 07/10/23 08:00 2 07/10/23 08:00 07/10/23 07:09 2 07/10/23 07:00 07/10/23 07:00 07/10/23 06:00 07/10/23 06:00 07/10/23 05:00 07/10/23 05:00 07/10/23 04:00 07/10/23 04:00 07/10/23 03:00 07/10/23 03:00 07/10/23 02:00 07/10/23 02:00 Laboratory Results 07/09/23 04:08 07/10/23 04:27 Diagnostic Findings Chest X-Ray 07/10/23 07:00 XR chest 1V portable CLINICAL HISTORY: Respiratory failure. COMPARISON STUDY: Chest radiograph July 09, 2023. FINDINGS: The endotracheal and nasogastric tubes have been removed. Postoperative findings within the cervical spine are incidentally noted. Cardiomegaly is unchanged. There is no pneumothorax. Small left pleural effusion is unchanged. There is a trace right pleural effusion. Mild right basilar opacity is unchanged. Left lung airspace opacity with diminished aeration has slightly increased. Elevation of the left hemidiaphragm is again noted. IMPRESSION: 1. Increase in left lung airspace opacity which could reflect pneumonia or atelectasis. Stable elevation of the left hemidiaphragm. 2. Small left and trace right pleural effusions. ACT 112: Negative or not required by law. Electronically signed by: Mode Real M.D. 07/10/2023 8:05 AM PG Care Time/CCT Total # of Minutes Spent Total Time Spent with Patient: I personally spent: 55 minutes today on clinical care activities including: reviewing chart notes and vital signs reviewing labs reviewing studies discussion with business objects consultant and bedside RN discussion with geriatric personal care aide examining and counseling the patient counseling the patient's family writing orders documentation Coding Level of Care Code 50434 SUB INP/OBS CARE 3/50MIN Diagnoses Acute on chronic respiratory failure with hypoxia and hypercapnia J96.21; J96.22 Pneumonia J18.9 Laterality: unspecified laterality Lung location: unspecified part of lung Pneumonia type: due to unspecified organism Vocal cord paralysis J38.00 Chronically elevated hemidiaphragm J98.6 Chronic obstructive pulmonary disease, unspecified COPD type J44.9 COPD type: unspecified COPD Positive blood culture R78.81 Influenza due to identified 2008 H1N1 influenza virus with pneumonia J10.00 Sepsis A41.9 Sepsis acute organ dysfunction status: unspecified Sepsis type: sepsis due to unspecified organism Primary hypertension I10 Hypertension type: primary hypertension Myelopathy concurrent with and due to spinal stenosis of cervical region M48.02; G99.2 Depression F32.0 Active/Remission status: currently active Depression Type: major depressive disorder Major depression episode severity: mild Major depression recurrence: single episode Opioid dependence F11.20 Acute metabolic encephalopathy G93.41 Hypophosphatemia E83.39 Acid reflux K21.9 DVT prophylaxis Z29.9 (2) Pneumonia Laterality: unspecified laterality Lung location: unspecified part of lung P neumonia type: due to unspecified organism Qualified Code(s): J18.9 - Pneumonia, unspecified organism (5) COPD (chronic obstructive pulmonary disease) COPD type: unspecified COPD Qualified Code(s): J44.9 - Chronic obstructive pulmonary disease, unspecified (8) Sepsis Sepsis acute organ dysfunction status: unspecified Sepsis type: sepsis due to unspecified organism Qualified Code(s): A41.9 - Sepsis, unspecified organism (9) Hypertension Hypertension type: primary hypertension Qualified Code(s): I10 - Essential (primary) hypertension (11) Depression Active/Remission status: currently active Depression Type: major depressive disorder Major depression episode severity: mild Major depression recurrence: single episode Qualified Code(s): F32.0 - Major depressive disorder, single episode, mild
[2023-07-10] MEDS: oxyCODONE HCL IR 5 MG TAB (IMMEDIATE RELEASE) PO PRN ×2 (18:03→22:06)
[2023-07-10] MEDS: ATORVASTATIN 10 MG TAB PO SCH (20:21)
[2023-07-10] MEDS: MIRTAZAPINE TAB 15 MG TAB PO SCH (20:31)
[2023-07-11] MEDS: oxyCODONE HCL IR 5 MG TAB (IMMEDIATE RELEASE) PO PRN ×5 (02:05→18:31)
[2023-07-11 05:59] LABS: BUN Creatinine Ratio 29.5 (10-20); Calcium 8.7 mg/dl (8.6-10.3); Creatinine Clr Calc Pharmacy 108.4 ml/min; Est GFR (African American) 118.9 ml/min; Est GFR (Non-African American) 102.6 ml/min; Magnesium 2.3 mg/dl (1.7-2.4); Phosphorus 3.7 mg/dl (2.5-4.9); Potassium 4.4 mmol/L (3.5-5.1)
[2023-07-11] MEDS: ACETAMINOPHEN 325 MG TAB PO SCH ×4 (07:34→20:35)
[2023-07-11] MEDS: buPROPion XL 150 MG TABCR PO SCH (07:35)
[2023-07-11] MEDS: CALCIUM 600MG + VIT D 400 IU TAB PO SCH ×2 (07:35→20:35)
[2023-07-11] MEDS: busPIRone 15 MG TAB PO SCH ×2 (07:35→20:35)
[2023-07-11] MEDS: GABAPENTIN 100 MG CAP PO SCH ×3 (07:36→20:35)
[2023-07-11] MEDS: HEPARIN SOD 5,000 UNIT/0.5 ML VIAL SQ SCH ×2 (07:36→20:35)
[2023-07-11] MEDS: PANTOprazole 40 MG TAB PO SCH (07:37)
[2023-07-11] MEDS: THIAMINE HCL 100 MG TAB PO SCH (07:37)
[2023-07-11] MEDS: CEROVITE ADV FORMULA TAB PO SCH (07:37)
[2023-07-11] MEDS: SODIUM CHLOR 7% 4 ML NEB NEB SCH ×2 (07:49→19:45)
[2023-07-11] MEDS: ALBUT/IPRATROP 3MG/0.5MG NEB 3 ML VIAL NEB SCH ×4 (07:49→19:45)
--- NOTE | 2023-07-11 08:00 | Pulmonology Progress Note ---
Date of Service July 11, 2023 Assessment & Plan (1) Pneumonia: Laterality: unspecified laterality Lung location: unspecified part of lung Pneumonia type: due to unspecified organism Qualified Code(s): J 18.9 - Pneumonia, unspecified organism (2) Acute on chronic respiratory failure with hypoxia and hypercapnia: (3) Influenza due to identified 2009 H1N1 influenza virus with pneumonia: (4) Chronic pulmonary aspiration: (5) Vocal cord weakness: (6) Chronically elevated hemidiaphragm: Plan Impression: 67-year-old male with a history of chronically elevated left hemidiaphragm and vocal cord paralysis with probable recurrent aspiration admitted with left-sided weakness and cough. Placed on BiPAP. Dense infiltrate in the left and underwent bronchoscopy with removal of mucous plug. He unfortunately continued to fail despite aggressive pulmonary toilet and broad- spectrum antibiotics and was transferred to the ICU 07/05/2023 for consideration of repeat bronchoscopy and intubation. He was extubated 07/09/2023. He is continues to refuse noninvasive positive pressure ventilation at night. Recommendations: 1. Hypoxemic and hypercarbic respiratory failure: This is secondary to the patient's chronic narcotic use, elevated hemidiaphragm, and generalized debility. He has been evaluated by [facility] and is not a candidate for any diaphragmatic procedures. Unfortunately his pain requires continued narcotics which resulted in continued respiratory suppression. His vocal cord dysfunction may predispose him to aspiration and he is generally weak. All of these add up to a very for prognostic picture. Ideally the patient should try noninvasive positive pressure ventilation to potentially improve atelectasis, VQ mismatching, and hypercarbia however he continues to refuse that therapy. He and his family have not been open to the prospect of a trach. If the patient were to deteriorate and require reintubation, I think his only option would be tracheostomy at that point in time. Alternatively, palliative care could be initiated should the patient deteriorate. At this point in time we will continue to support him with aggressive PT and OT. He will do better if he can get out of bed into a chair and upright although his functional status has been declining at home prior to this hospitalization which may portend an unfavorable prognosis. Continue incentive spirometry and flutter valve as well as nebulized bronchodilators. 2. Management of the patient's other medical issues is deferred to the primary admitting service. Will continue to follow for pulmonary issues. Admission and Anticipated Discharge Date Admission Date: June 29, 2023 Subjective Patient seen and examined. EMR reviewed. Discussed with bedside critical care nurse and patient at bedside. The patient again refused noninvasive positive pressure ventilation last night despite multiple attempts by myself and the attending provider to educate the patient regarding the importance of this therapy. He states it hurts his head and he is not really willing to consider using it. I again advised him that we had a discussion yesterday stating that if he did not use this and required reintubation the only option at that point time would be tracheostomy or transitioning the patient to comfort care measures. He expressed understanding but again reiterates that he does not think he would want to use BiPAP. I am unclear whether he understands the implications of his decision making or not. He does not report shortness of breath currently. He states he slept poorly last night. He is not having any chest pain. His oxygen requirement has decreased significantly. Review of Systems 2 Review of Systems: All systems reviewed & are unremarkable except as noted in Subjective Physical Exam 2 Constitutional: WD/WN, vitals as above Neck: trachea midline, no thyromegaly Respiratory: no labored breathing, no cough and not tachypneic A uscultation: + rhonchi; no crackles and no wheezes Cardiovascular: RRR, no murmur, no edema Gastrointestinal (Abdomen): normal bowel sounds, soft, nontender, no hepatosplenomegaly Musculoskeletal: Extremities: extremities normal to inspection Skin: no rashes, warm and dry Lymphatic: no cervical lymphadenopathy Results & Data Results & Data Vital Signs (Past 12 Hours) Vital Signs Temp Pulse Resp BP Pulse Ox O2 Del Method O2 Flow Rate 07/11/23 07:49 93 H 20 96 Nasal Cannula 2 07/11/23 02:25 37.3 C 78 18 107/69 94 Nasal Cannula 2 07/10/23 23:30 37.3 C 90 20 123/78 96 Nasal Cannula 2 07/10/23 21:56 85 16 Nasal Cannula 2 07/10/23 20:00 37.2 C 76 20 113/72 95 Nasal Cannula 2 07/10/23 20:00 Nasal Cannula 2 Laboratory Results 07/09/23 04:08 07/11/23 05:10 Diagnostic Findings No new imaging PG Care Time/CCT Total # of Minutes Spent Total Time Spent with Patient: Total time spent is greater than 50% in coordination of care (as documented) at patient's floor/unit and/or counseling patient: Coding Level of Care Code 87162 SUB INP/OBS CARE 235MIN Diagnoses Pneumonia J18.9 Laterality: unspecified laterality Lung location: unspecified part of lung Pneumonia type: due to unspecified organism Acute on chronic respiratory failure with hypoxia and hypercapnia J96.21; J96.22 Influenza due to identified 2009 H1N1 influenza virus with pneumonia J10.00 Chronic pulmonary aspiration T17.908A Vocal cord weakness J38.00 Chronically elevated hemidiaphragm J98.6
[2023-07-11] MEDS: METHADONE HCL 5 MG TAB PO SCH ×2 (08:33→20:34)
--- NOTE | 2023-07-11 14:19 | Hospitalist Progress Note ---
Date of Service July 11, 2023 Assessment & Plan (1) Acute on chronic respiratory failure with hypoxia and hypercapnia: Plan: acute component 2nd to fluA infection, b/l pneumonia left (severe) > right, left lung mucous plugging, COPD with exacerbation (early in the stay he had had wheezing), pulmonary edema. These issues were treated and largely resolved. chronic component - COPD, left-sided hemidiaphragm elevation, vocal cord paralysis leading to difficulty protecting airway/managing secretions He is very deconditioned at this point which contributes to respiratory muscle weakness. Had bronchoscopy 07/01 notable for mucus plugging on L WORSE on 07/05/23 - CXR at that time with DEANNA again opacified. Previous collapse of DEANNA was due to mucous plugging s/[facility], bronchoscopy by Dr Moore showing the following - "The right mainstem, right upper lobe, right middle lobe, and right lower lobe were all widely patent with thin secretions present. The mucosa appeared normal. The left mainstem bronchus was widely patent. The left upper lobe and lingula takeoff were patent but demonstrated dynamic collapse with respiration. The left lower lobe bronchi was significantly collapsed." Antibiotics stopped per ICU team, since no evidence of ongoing pneumonia 07/07 failed SBT but passed AM of 07/09 and was extubated. Prior to that on 07/09 had bronchoscopy with findings of thin secretions and no mucus plugging. -refused Bipap pm of 07/09, 07/10 -currently stable on 2L O2, remains confused but again improved. very poor exertional tolerance remains tachycardic (2) Acute metabolic encephalopathy: Plan: multifactorial - influenza infection, left-sided pneumonia, hypercapnia, hypoxia, meds for sedation for bronch reduced gabapentin to 100 mg tid opioids reduced and tapering may need to reduce mirtazapine or buspar remains confused but much improved compared to 07/09 & 07/10 (3) Opioid dependence: Plan: typically on oxycodone 15mg q4h prn as outpatient PDMP shows chronic prescriptions for oxy 10's just recently his dose was increased to 15mg tabs as outpatient takes narcotics for chronic back/neck pain - has not mentioned any back or neck pain since extubation opioids will contribute to respiratory failure and encephalopathy. No pain currently. in ICU was been on sedation drips and methadone 5 mg bid. today decreased methadone to 2.5 mg bid, and continue oxycodone 5 mg q4h prn (4) Pneumonia: Plan: DEANNA/LLL extensive, severe bacterial superinfection in the setting of fluA infection completed 7 days of cefepime then zosyn, also completed 6 days of atypical coverage with doxy 100mg BID s/p bronch 07/01/[address] Capps - large mucous plugging found in the left bronchial tree; plugs removed all bronch cultures negative to date - no specific bacterial pathogen identified PJP, histo, blasto, and cocci studies that were sent to [facility] lab returned negative s/p bronch 07/[address] Moore without evidence of mucus plugging or ongoing secretions suggestive of pneumonia - antibiotics stopped at that point bronch 07/[address] Moore again with only thin secretions continue monitoring off ABX (5) Vocal cord paralysis: Plan: history of such per records reason for vocal cord paralysis is likely his cervical myelopathy or prior cspine surgery big risk factor for aspiration events as he cannot protect his airway voice is not hoarse currently (6) Chronically elevated hemidiaphragm: Plan: left-side etiology uncertain present for several years has seen [facility] for this as outpatient as well as thoracic surgery at [facility] three years ago - not amenable to surgical intervention and too weak to tolerate at this time. Contributes to recurrent DEANNA collapse and mucus plugging. (7) COPD (chronic obstructive pulmonary disease): Plan: with exacerbation treated with solumedrol earlier in hospital course. prior to admission was on prednisone 5 mg qod for chronic pain? steroids discontinued at risk for secondary adrenal insufficiency - monitor, if hypotensive consider stress dose steroids (8) Positive blood culture: Plan: coag neg staph, 2/8 bottles, and alpha strep 1/8 bottles. likely contaminants (9) Influenza due to identified 2009 H1N1 influenza virus with pneumonia: Plan: fluA infection tamiflu 75mg BID x 5 days - course completed (10) Sepsis: Plan: 2nd influenza A infection 2nd left-sided pneumonia resolved (11) Hypertension: Plan: not on meds for such follow BPs, normotensive (12) Myelopathy concurrent with and due to spinal stenosis of cervical region: Plan: severe 04/2020 - extensive c-spine surgery by Dr Álvarez outpatient pulmonary note from 2020 suggests that some of his vocal cord paralysis +/- hemidiaphragm elevation could be from prior surgery vs the c-spine disease itself (13) Depression: Plan: cont mirtazapine and buspar. consider decreasing doses if remaining confused/sedated (14) Hypophosphatemia: Plan: replaced (15) Acid reflux: Plan: takes pepcid daily at home was having frequent reflux symptoms this entire stay before intubation continue acid suppression with PPI CT chest showed esophageal wall thickening which is suggestive of esophagitis (16) DVT prophylaxis: Plan: lovenox daily Plan Goals of care - Family meeting at bedside 07/[address] Moore, Dr Parikh from palliative care team, myself and Mr. Fleming's son and daughter in law. Mr. 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 Trial of bipap is reasonable if he can tolertate it (which he has tolerated poorly in the past), if he were to be reintubated would require trach for hope of improvement, which he had stated in the past he did not want. Discussed with Jules and his son 07/10: comfort care vs reintubation with expectation of trach if he were to worsen, but no decision on this. See prog note 07/10. Has continued to refuse nighttime bipap. Admission and Anticipated Discharge Date Admission Date: June 29, 2023 Subjective Doing well since yesterday remains on 2L O2 and much less confused today, exertional tolerance still very poor, had nausea when up in chair for lunch. No nausea at breakfast or yesterday. Has had loose stools but RN reports no stools this shift. He feels like his shortness of breath is slightly improved. Denies pain except for perianal area due to frequent stools. Physical Exam 2 Physical Exam: PHYSICAL EXAMINATION Last 24h vital signs reviewed, see documentation in flowsheet General: again lying on L side in ICU bed, looks slightly stronger HEENT: Normocephalic, atraumatic, pupils round and equal, sclerae anicteric, no conjunctival injection, moist mucus membranes Lungs: clear anteriorly and posteriorly, air movement in DEANNA, diminished in L base, mildly tachypneic Heart: tachycardic Regular rate and rhythm, no murmurs. No JVD Abdomen: Soft, nontender, nondistended. Bowel sounds present. Extremities: Warm, dry, well-perfused. No extremity edema. Neuro: face symmetric, eduar, awake and alert oriented to hospital and basic situation, conversation more appropriate less confused makes some contradictory statements, moving 4 ext spontaneously and equally Psych: calm, normal affect and behavior Results & Data Results & Data Vital Signs (Past 12 Hours) Vital Signs Temp Pulse Pulse Resp BP Pulse Ox O2 Del Method 07/11/23 12:00 112 H 20 106/66 93 Nasal Cannula 07/11/23 11:20 98 H 19 91 Nasal Cannula 07/11/23 08:00 Nasal Cannula 07/11/23 08:00 36.6 C 88 16 116/91 94 Nasal Cannula 07/11/23 07:49 93 H 20 96 Nasal Cannula 07/11/23 02:25 37.3 C 78 18 107/69 94 Nasal Cannula O2 Flow Rate 07/11/23 12:00 2 07/11/23 11:20 2 07/11/23 08:00 2 07/11/23 08:00 2 07/11/23 07:49 2 07/11/23 02:25 2 Laboratory Results 07/09/23 04:08 07/11/23 05:10 PG Care Time/CCT Total # of Minutes Spent Total Time Spent with Patient: Total time spent is greater than 50% in coordination of care (as documented) at patient's floor/unit and/or counseling patient: Coding Level of Care Code 71161 SUB INP/OBS CARE 2/35MIN Diagnoses Acute on chronic respiratory failure with hypoxia and hypercapnia J96.21; J96.22 Acute metabolic encephalopathy G93.41 Opioid dependence F11.20 Pneumonia J18.9 Laterality: unspecified laterality Lung location: unspecified part of lung Pneumonia type: due to unspecified organism Vocal cord paralysis J38.00 Chronically elevated hemidiaphragm J98.6 Chronic obstructive pulmonary disease, unspecified COPD type J44.9 COPD type: unspecified COPD Positive blood culture R78.81 Influenza due to identified 2009 H1N1 influenza virus with pneumonia J10.00 Sepsis A41.9 Sepsis acute organ dysfunction status: unspecified Sepsis type: sepsis due to unspecified organism Primary hypertension I10 Hypertension type: primary hypertension Myelopathy concurrent with and due to spinal stenosis of cervical region M48.02; G99.2 Depression F32.0 Active/Remission status: currently active Depression Type: major depressive disorder Major depression episode severity: mild Major depression recurrence: single episode Hypophosphatemia E83.39 Acid reflux K21.9 DVT prophylaxis Z29.9 (4) Pneumonia Laterality: unspecified laterality Lung location: unspecified part of lung P neumonia type: due to unspecified organism Qualified Code(s): J18.9 - Pneumonia, unspecified organism (7) COPD (chronic obstructive pulmonary disease) COPD type: unspecified COPD Qualified Code(s): J44.9 - Chronic obstructive pulmonary disease, unspecified (10) Sepsis Sepsis acute organ dysfunction status: unspecified Sepsis type: sepsis due to unspecified organism Qualified Code(s): A41.9 - Sepsis, unspecified organism (11) Hypertension Hypertension type: primary hypertension Qualified Code(s): I10 - Essential (primary) hypertension (13) Depression Active/Remission status: currently active Depression Type: major depressive disorder Major depression episode severity: mild Major depression recurrence: single episode Qualified Code(s): F32.0 - Major depressive disorder, single episode, mild
[2023-07-11] MEDS ORDERED: Nursing to Pharmacy Communication SCH (20:15)
[2023-07-11] MEDS: MIRTAZAPINE TAB 15 MG TAB PO SCH (20:34)
[2023-07-11] MEDS: ATORVASTATIN 10 MG TAB PO SCH (20:35)
[2023-07-12] MEDS: oxyCODONE HCL IR 5 MG TAB (IMMEDIATE RELEASE) PO PRN ×6 (00:27→20:44)
[2023-07-12 05:38] LABS: Magnesium 2.3 mg/dl (1.7-2.4)
[2023-07-12 05:44] LABS: BUN Creatinine Ratio 36.4 (10-20); Creatinine Clr Calc Pharmacy 120.2 ml/min; Est GFR (African American) 124.1 ml/min; Est GFR (Non-African American) 107.1 ml/min; Phosphorus 3.1 mg/dl (2.5-4.9)
[2023-07-12] MEDS: SODIUM CHLOR 7% 4 ML NEB NEB SCH ×2 (07:12→19:38)
[2023-07-12] MEDS: ALBUT/IPRATROP 3MG/0.5MG NEB 3 ML VIAL NEB SCH ×4 (07:12→19:38)
--- NOTE | 2023-07-12 07:12 | Hospitalist Progress Note ---
Date of Service July 12, 2023 Assessment & Plan (1) Acute on chronic respiratory failure with hypoxia and hypercapnia: Plan: acute component 2nd to fluA infection, b/l pneumonia left (severe) > right, left lung mucous plugging, COPD with exacerbation (early in the stay he had had wheezing), pulmonary edema. These issues were treated and largely resolved. chronic component - COPD, left-sided hemidiaphragm elevation, vocal cord paralysis leading to difficulty protecting airway/managing secretions He is very deconditioned at this point which contributes to respiratory muscle weakness. Had bronchoscopy 07/01 notable for mucus plugging on L WORSE on 07/05/23 - CXR at that time with DEANNA again opacified. Previous collapse of DEANNA was due to mucous plugging s/p [facility], bronchoscopy by Dr Moore showing the following - "The right mainstem, right upper lobe, right middle lobe, and right lower lobe were all widely patent with thin secretions present. The mucosa appeared normal. The left mainstem bronchus was widely patent. The left upper lobe and lingula takeoff were patent but demonstrated dynamic collapse with respiration. The left lower lobe bronchi was significantly collapsed." Antibiotics stopped per ICU team, since no evidence of ongoing pneumonia 07/07 failed SBT but passed AM of 07/09 and was extubated. Prior to that on 07/09 had bronchoscopy with findings of thin secretions and no mucus plugging. -fever midmorning 07/10, resolved -refused Bipap pm of 07/09, 07/10, 07/11 - discontinued -currently stable on 2L O2, very poor exertional tolerance but no longer tachycardic, tolerated time in chair today -continue guaifenesin and hypertonic saline neb -transfer out of PCU status to medical unit -needs a lot of rehab, PT/OT (2) Acute metabolic encephalopathy: Plan: multifactorial - influenza infection, left-sided pneumonia, hypercapnia, hypoxia, meds for sedation for bronch reduced gabapentin to 100 mg tid opioids reduced and tapering may need to reduce mirtazapine or buspar mental status much improved compared to immediately post extubation -would not increase oxycodone in absence of acute pain, would not increase gabapentin, I think high doses of these were significant contributors to his respiratory difficulties (3) Opioid dependence: Plan: typically on oxycodone 15mg q4h prn as outpatient PDMP shows chronic prescriptions for oxy 10's just recently his dose was increased to 15mg tabs as outpatient takes narcotics for chronic back/neck pain - today states back and neck pain is at usual baseline opioids will contribute to respiratory failure and encephalopathy. No increase in baseline pain currently. in ICU was been on sedation drips and methadone 5 mg bid. 07/11 decreased methadone to 2.5 mg bid, and continue oxycodone 5 mg q4h prn which he asks for frequently 07/13 plan to taper methadone to daily for 48h then off (4) Pneumonia: Plan: DEANNA/LLL extensive, severe bacterial superinfection in the setting of fluA infection completed 7 days of cefepime then zosyn, also completed 6 days of atypical coverage with doxy 100mg BID s/p bronch 07/01/[address] Capps - large mucous plugging found in the left bronchial tree; plugs removed all bronch cultures negative to date - no specific bacterial pathogen identified PJP, histo, blasto, and cocci studies that were sent to [facility] lab returned negative s/p bronch 07/[address] Moore without evidence of mucus plugging or ongoing secretions suggestive of pneumonia - antibiotics stopped at that point bronch 07/[address] Moore again with only thin secretions resolved continue monitoring off ABX (5) Vocal cord paralysis: Plan: history of such per records reason for vocal cord paralysis is likely his cervical myelopathy or prior cspine surgery big risk factor for aspiration events as he cannot protect his airway voice is not hoarse currently (6) Chronically elevated hemidiaphragm: Plan: left-side etiology uncertain present for several years has seen [facility] for this as outpatient as well as thoracic surgery at [place] three years ago - not amenable to surgical intervention and too weak to tolerate at this time. Contributes to recurrent DEANNA collapse and mucus plugging. (7) COPD (chronic obstructive pulmonary disease): Plan: with exacerbation treated with solumedrol earlier in hospital course. prior to admission was on prednisone 5 mg qod for chronic pain? steroids discontinued at risk for secondary adrenal insufficiency - monitor, if hypotensive consider stress dose steroids (8) Positive blood culture: Plan: coag neg staph, 2/8 bottles, and alpha strep 1/8 bottles. likely contaminants (9) Influenza due to identified 2008 H1N1 influenza virus with pneumonia: Plan: fluA infection tamiflu 75mg BID x 5 days - course completed (10) Sepsis: Plan: 2nd influenza A infection 2nd left-sided pneumonia resolved (11) Hypertension: Plan: not on meds for such follow BPs, normotensive (12) Myelopathy concurrent with and due to spinal stenosis of cervical region: Plan: severe 04/2020 - extensive c-spine surgery by Dr Álvarez outpatient pulmonary note from 2020 suggests that some of his vocal cord paralysis +/- hemidiaphragm elevation could be from prior surgery vs the c-spine disease itself (13) Depression: Plan: cont mirtazapine and buspar. consider decreasing doses if remaining confused/sedated but seems to be doing fairly well (14) Hypophosphatemia: Plan: replaced (15) Acid reflux: Plan: takes pepcid daily at home was having frequent reflux symptoms this entire stay before intubation continue acid suppression with PPI CT chest showed esophageal wall thickening which is suggestive of esophagitis (16) DVT prophylaxis: Plan: SQ heparin bid Plan 07/12 L sided abdominal wall pain - pain very focal c/w abdominal wall pain, may have strained an oblique muscle. Exam benign and eating/drinking. Monitor Goals of care - Family meeting at bedside 07/[address] Moore, Dr Parikh from palliative care team, myself and Mr. Fleming's son and daughter in law. Mr. Fleming has stated in past he did not want trach, [facility] mechanical ventilation, SNF. Trial of bipap is reasonable if he can tolertate it (which he has tolerated poorly in the past), if he were to be reintubated would require trach for hope of improvement, which he had stated in the past he did not want. Discussed with Jules and his son 07/10: comfort care vs reintubation with expectation of trach if he were to worsen, but no decision on this. See prog note 07/10. Has continued to refuse nighttime bipap. Doing well this weekend. Left voicemail with son Jules today with brief update. Admission and Anticipated Discharge Date Admission Date: June 29, 2023 Subjective Jules is awake, had small stool this AM but no further diarrhea, his back pain is at chronic baseline, feels somewhat short of breath but not worse, +cough, has L sided abdominal wall or LUQ pain that started since this morning (seen midday), no nausea/vomiting. Tolerated some time in chair this AM and was not tachycardic and didn't desat. Remains extremely weak. Physical Exam 2 Physical Exam: PHYSICAL EXAMINATION Last 24h vital signs reviewed, see documentation in flowsheet General: lying on bed had been working with RNs HEENT: Normocephalic, atraumatic, pupils round and equal, sclerae anicteric, no conjunctival injection, moist mucus membranes Lungs: clear anteriorly. posteriorly, has air movement in DEANNA, diminished in L base, some crackles L mid area, nonlabored Heart: no longer tachycardic Regular rate and rhythm, no murmurs. No JVD Abdomen: Has an area of focal mild tenderness laterally on L side of abdomen just inferior to ribs. Abdomen itself is nontender to deep palp. no rrg +BT ND Extremities: Warm, dry, well-perfused. No extremity edema. Neuro: face symmetric, eduar, awake and alert oriented to hospital and basic situation, conversational, similar to yesterday, moving 4 ext spontaneously and equally Psych: calm, normal affect and behavior Results & Data Results & Data Vital Signs (Past 12 Hours) Vital Signs Temp Pulse Pulse Resp BP Pulse Ox O2 Del Method 07/12/23 04:00 36.6 C 71 20 141/79 H 93 Nasal Cannula 07/12/23 00:03 36.8 C 93 H 17 124/80 97 Nasal Cannula 07/11/23 22:22 82 07/11/23 20:00 36.7 C 101 H 22 125/81 94 Nasal Cannula 07/11/23 19:45 92 H 16 92 Nasal Cannula 07/11/23 19:43 Nasal Cannula O2 Flow Rate 07/12/23 04:00 2 07/12/23 00:03 2 07/11/23 22:22 07/11/23 20:00 2 07/11/23 19:45 1 07/11/23 19:43 2 Laboratory Results 07/09/23 04:08 07/12/23 04:15 PG Care Time/CCT Total # of Minutes Spent Total Time Spent with Patient: Total time spent is greater than 50% in coordination of care (as documented) at patient's floor/unit and/or counseling patient: Coding Level of Care Code 07426 SUB INP/OBS CARE 2/35MIN Diagnoses Acute on chronic respiratory failure with hypoxia and hypercapnia J96.21; J96.22 Acute metabolic encephalopathy G93.41 Opioid dependence F11.20 Pneumonia J18.9 Laterality: unspecified laterality Lung location: unspecified part of lung Pneumonia type: due to unspecified organism Vocal cord paralysis J38.00 Chronically elevated hemidiaphragm J98.6 Chronic obstructive pulmonary disease, unspecified COPD type J44.9 COPD type: unspecified COPD Positive blood culture R78.81 Influenza due to identified 2009 H1N1 influenza virus with pneumonia J10.00 Sepsis A41.9 Sepsis acute organ dysfunction status: unspecified Sepsis type: sepsis due to unspecified organism Primary hypertension I10 Hypertension type: primary hypertension Myelopathy concurrent with and due to spinal stenosis of cervical region M48.02; G99.2 Depression F32.0 Active/Remission status: currently active Depression Type: major depressive disorder Major depression episode severity: mild Major depression recurrence: single episode Hypophosphatemia E83.39 Acid reflux K21.9 DVT prophylaxis Z29.9 (4) Pneumonia Laterality: unspecified laterality Lung location: unspecified part of lung P neumonia type: due to unspecified organism Qualified Code(s): J18.9 - Pneumonia, unspecified organism (7) COPD (chronic obstructive pulmonary disease) COPD type: unspecified COPD Qualified Code(s): J44.9 - Chronic obstructive pulmonary disease, unspecified (10) Sepsis Sepsis acute organ dysfunction status: unspecified Sepsis type: sepsis due to unspecified organism Qualified Code(s): A41.9 - Sepsis, unspecified organism (11) Hypertension Hypertension type: primary hypertension Qualified Code(s): I10 - Essential (primary) hypertension (13) Depression Active/Remission status: currently active Depression Type: major depressive disorder Major depression episode severity: mild Major depression recurrence: single episode Qualified Code(s): F32.0 - Major depressive disorder, single episode, mild
[2023-07-12] MEDS: THIAMINE HCL 100 MG TAB PO SCH (08:28)
[2023-07-12] MEDS: busPIRone 15 MG TAB PO SCH ×2 (08:28→20:41)
[2023-07-12] MEDS: PANTOprazole 40 MG TAB PO SCH (08:28)
[2023-07-12] MEDS: GABAPENTIN 100 MG CAP PO SCH ×3 (08:28→20:31)
[2023-07-12] MEDS: CALCIUM 600MG + VIT D 400 IU TAB PO SCH ×2 (08:29→20:31)
[2023-07-12] MEDS: ACETAMINOPHEN 325 MG TAB PO SCH ×4 (08:29→20:30)
[2023-07-12] MEDS: buPROPion XL 150 MG TABCR PO SCH (08:29)
[2023-07-12] MEDS: CEROVITE ADV FORMULA TAB PO SCH (08:29)
[2023-07-12] MEDS: METHADONE HCL 5 MG TAB PO SCH ×2 (08:33→20:31)
--- NOTE | 2023-07-12 08:47 | Pulmonology Progress Note ---
Date of Service July 12, 2023 Assessment & Plan (1) Pneumonia: Laterality: unspecified laterality Lung location: unspecified part of lung Pneumonia type: due to unspecified organism Qualified Code(s): J 18.9 - Pneumonia, unspecified organism (2) Acute on chronic respiratory failure with hypoxia and hypercapnia: (3) Influenza due to identified 2009 H1N1 influenza virus with pneumonia: (4) Chronic pulmonary aspiration: (5) Vocal cord weakness: (6) Chronically elevated hemidiaphragm: Plan Impression: 67-year-old male with a history of chronically elevated left hemidiaphragm and vocal cord paralysis with probable recurrent aspiration admitted with left-sided weakness and cough. Placed on BiPAP. Dense infiltrate in the left and underwent bronchoscopy with removal of mucous plug. He unfortunately continued to fail despite aggressive pulmonary toilet and broad- spectrum antibiotics and was transferred to the ICU 07/05/2023 for consideration of repeat bronchoscopy and intubation. He was extubated 07/09/2023. He is continues to refuse noninvasive positive pressure ventilation at night. Recommendations: 1. Hypoxemic and hypercarbic respiratory failure: This is secondary to the patient's chronic narcotic use, elevated hemidiaphragm, and generalized debility. He has been evaluated by [facility] and is not a candidate for any diaphragmatic procedures. Unfortunately his pain requires continued narcotics which resulted in continued respiratory suppression. His vocal cord dysfunction may predispose him to aspiration and he is generally weak. All of these add up to a very for prognostic picture. Ideally the patient should try noninvasive positive pressure ventilation to potentially improve atelectasis, VQ mismatching, and hypercarbia however he continues to refuse that therapy. Benzodiazepines to facilitate compliance with noninvasive positive pressure ventilation would likely result in worsening of his baseline hypercarbia and or not recommended. Will continue aggressive PT OT. I did advise the patient that he needs to be out of bed sitting in a chair is much as tolerated and continue to work on flutter valve, incentive spirometry, and cough. He expressed understanding and states he will continue to work with it. 2. Management of the patient's other medical issues is deferred to the primary admitting service. Will continue to follow for pulmonary issues. Patient may be approaching his chronic debilitated baseline status. PT and OT both recommending skilled rehab rather than going home. Patient's son would like to have him closer to home in a facility near [place]. This appears to be the best solution to the patient long-term Admission and Anticipated Discharge Date Admission Date: June 29, 2023 Subjective Patient seen and examined. EMR reviewed. Discussed with bedside nurse. Patient states he slept poorly last night. He is complaining of some mild discomfort on his left side on the lateral chest. His cough is adequate. He again refused BiPAP last night. Family had floated the idea of using benzodiazepines to facilitate compliance with BiPAP however we discussed why that would not be appropriate and may actually aggravate his hypercarbic respiratory failure. He has been afebrile. Review of Systems 2 Review of Systems: All systems reviewed & are unremarkable except as noted in Subjective Physical Exam 2 Constitutional: WD/WN, vitals as above Neck: trachea midline, no thyromegaly Respiratory: no labored breathing, no cough and not tachypneic A uscultation: + rhonchi; no crackles and no wheezes Cardiovascular: RRR, no murmur, no edema Gastrointestinal (Abdomen): normal bowel sounds, soft, nontender, no hepatosplenomegaly Musculoskeletal: Extremities: extremities normal to inspection Skin: no rashes, warm and dry Lymphatic: no cervical lymphadenopathy Results & Data Results & Data Vital Signs (Past 12 Hours) Vital Signs Temp Pulse Pulse Resp BP Pulse Ox O2 Del Method 07/12/23 07:15 95 H 17 93 Nasal Cannula 07/12/23 04:00 36.6 C 71 20 141/79 H 93 Nasal Cannula 07/12/23 00:03 36.8 C 93 H 17 124/80 97 Nasal Cannula 07/11/23 22:22 82 O2 Flow Rate 07/12/23 07:15 2 07/12/23 04:00 2 07/12/23 00:03 2 07/11/23 22:22 Laboratory Results 07/09/23 04:08 07/12/23 04:15 06/29/23 06/30/23 06/30/23 21:09 09:31 14:09 POC pCO2 POC pO2 ABG pH 7.33 L ABG pCO2 61 H ABG pO2 87 ABG HCO3 32 H ABG O2 Saturation 98.0 H ABG Base Excess 4.5 H VBG pH 7.31 L 7.33 L VBG pCO2 56 H 51 H VBG pO2 27 26 VBG HCO3 28 27 VBG O2 Saturation < 60.0 < 60.0 VBG Base Excess 1.0 0.3 07/02/23 07/05/23 07/06/23 08:46 08:16 09:39 POC pCO2 64 H 36 POC pO2 71 L 402 H ABG pH ABG pCO2 ABG pO2 ABG HCO3 ABG O2 Saturation ABG Base Excess VBG pH 7.41 VBG pCO2 66 H VBG pO2 26 VBG HCO3 42 VBG O2 Saturation < 60.0 VBG Base Excess 14.0 07/06/23 07/06/23 07/07/23 11:51 15:01 06:18 POC pCO2 37 45 36 POC pO2 67 L 80 79 L ABG pH ABG pCO2 ABG pO2 ABG HCO3 ABG O2 Saturation ABG Base Excess VBG pH VBG pCO2 VBG pO2 VBG HCO3 VBG O2 Saturation VBG Base Excess 07/08/23 07/09/23 07/10/23 04:23 04:08 04:27 POC pCO2 POC pO2 ABG pH 7.38 7.40 7.34 L ABG pCO2 44 44 65 H ABG pO2 97 H 106 H 97 H ABG HCO3 26 H 27 H 35 H ABG O2 Saturation 99.0 H 99.1 H 98.6 H ABG Base Excess 0.5 2.0 H 7.0 H VBG pH VBG pCO2 VBG pO2 VBG HCO3 VBG O2 Saturation VBG Base Excess Diagnostic Findings No new imaging PG Care Time/CCT Total # of Minutes Spent Total Time Spent with Patient: Total time spent is greater than 50% in coordination of care (as documented) at patient's floor/unit and/or counseling patient: Coding Level of Care Code 24589 SUB INP/OBS CARE 2/35MIN Diagnoses Pneumonia J18.9 Laterality: unspecified laterality Lung location: unspecified part of lung Pneumonia type: due to unspecified organism Acute on chronic respiratory failure with hypoxia and hypercapnia J96.21; J96.22 Influenza due to identified 2009 H1N1 influenza virus with pneumonia J10.00 Chronic pulmonary aspiration T17.908A Vocal cord weakness J38.00 Chronically elevated hemidiaphragm J98.6
[2023-07-12] MEDS: MIRTAZAPINE TAB 15 MG TAB PO SCH (20:31)
[2023-07-12] MEDS: ENOXAPARIN INJ 40 MG/0.4 ML SYR SQ SCH (20:32)
[2023-07-12] MEDS: ATORVASTATIN 10 MG TAB PO SCH (20:41)
[2023-07-13] MEDS: oxyCODONE HCL IR 5 MG TAB (IMMEDIATE RELEASE) PO PRN ×6 (02:49→23:56)
[2023-07-13] MEDS: ALBUT/IPRATROP 3MG/0.5MG NEB 3 ML VIAL NEB SCH ×4 (07:04→19:16)
[2023-07-13] MEDS: SODIUM CHLOR 7% 4 ML NEB NEB SCH ×2 (07:04→19:16)
[2023-07-13 07:38] LABS: Hematocrit (blood only) 35.1 % (42.0-52.0); Hemoglobin 11.8 g/dl (14.0-18.0); Mean Corpuscular Hemoglobin 31.6 pg (25.0-34.0); Mean Corpuscular Hgb Conc 33.6 g/dL (32.0-36.0); Mean Corpuscular Volume 93.9 fL (80.0-100.0); Mean Platelet Volume 10.4 fL (9.4-12.4); Platelet Count 285 K/uL (130-400); RDW Coefficient of Variation 12.9 % (11.5-14.5); RDW Standard Deviation 43.7 fL (36.4-46.3); Red Blood Count 3.74 M/uL (4.70-6.10); White Blood Count 6.62 K/ul (4.8-10.8)
[2023-07-13] MEDS: ACETAMINOPHEN 325 MG TAB PO SCH ×4 (08:00→19:51)
[2023-07-13] MEDS: busPIRone 15 MG TAB PO SCH ×2 (08:01→19:52)
[2023-07-13] MEDS: THIAMINE HCL 100 MG TAB PO SCH (08:02)
[2023-07-13] MEDS: METHADONE HCL 5 MG TAB PO SCH (08:02)
[2023-07-13] MEDS: CALCIUM 600MG + VIT D 400 IU TAB PO SCH ×2 (08:02→19:52)
[2023-07-13] MEDS: PANTOprazole 40 MG TAB PO SCH (08:03)
[2023-07-13] MEDS: GABAPENTIN 100 MG CAP PO SCH ×3 (08:03→19:52)
[2023-07-13] MEDS: CEROVITE ADV FORMULA TAB PO SCH (08:03)
[2023-07-13] MEDS: buPROPion XL 150 MG TABCR PO SCH (08:04)
[2023-07-13 08:08] LABS: BUN Creatinine Ratio 26.6 (10-20); Calcium 9.7 mg/dl (8.6-10.3); Creatinine Clr Calc Pharmacy 103.3 ml/min; Est GFR (African American) 116.6 ml/min; Est GFR (Non-African American) 100.6 ml/min; Potassium 4.3 mmol/L (3.5-5.1)
[2023-07-13] MEDS: ONDANSETRON 4 MG OD TAB PO PRN (09:59)
--- NOTE | 2023-07-13 11:25 | Pulmonology Progress Note ---
Date of Service July 13, 2023 Assessment & Plan (1) Pneumonia: Laterality: unspecified laterality Lung location: unspecified part of lung Pneumonia type: due to unspecified organism Qualified Code(s): J18.9 - Pneumonia, unspecified organism (2) Acute on chronic respiratory failure with hypoxia and hypercapnia: (3) Influenza due to identified 2009 H1N1 influenza virus with pneumonia: (4) Chronic pulmonary aspiration: (5) Vocal cord weakness: (6) Chronically elevated hemidiaphragm: Plan Impression: 67-year-old male with a history of chronically elevated left hemidiaphragm and vocal cord paralysis with probable recurrent aspiration admitted with left-sided weakness and cough. Placed on BiPAP. Dense infiltrate in the left and underwent bronchoscopy with removal of mucous plug. He unfortunately continued to fail despite aggressive pulmonary toilet and broad- spectrum antibiotics and was transferred to the ICU 07/05/2023 for consideration of repeat bronchoscopy and intubation. He was extubated 07/09/2023. He is continues to refuse noninvasive positive pressure ventilation at night. Recommendations: 1. Hypoxemic and hypercarbic respiratory failure: This is secondary to the patient's chronic narcotic use, elevated hemidiaphragm, and generalized debility. He has been evaluated by [facility] and is not a candidate for any diaphragmatic procedures. Unfortunately his pain requires continued narcotics which resulted in continued respiratory suppression. His vocal cord dysfunction may predispose him to aspiration and he is generally weak. All of these add up to a very for prognostic picture. Ideally the patient should try noninvasive positive pressure ventilation to potentially improve atelectasis, VQ mismatching, and hypercarbia however he continues to refuse that therapy. Benzodiazepines to facilitate compliance with noninvasive positive pressure ventilation would likely result in worsening of his baseline hypercarbia and or not recommended. Will continue aggressive PT OT. The patient continues to lay on his left lateral decubitus area every time you go to see him. He has not sat up today. His overall prognosis is very poor due to his chronic pulmonary issues and severe debility. Continue with flutter valve and hypertonic saline twice daily to promote mucociliary clearance 2. Management of the patient's other medical issues is deferred to the primary admitting service. No further recommendations at this time. Please call with questions. Thank you for the consult. Admission and Anticipated Discharge Date Admission Date: June 29, 2023 Subjective No acute events overnight. Patient saturating 91% on room air. He denies any shortness of breath at rest. He continues to have a cough, but is now mostly dry Review of Systems Review of Systems: All systems reviewed & are unremarkable except as noted in HPI & below Physical Exam Constitutional: WD/WN, vitals as above Neck: trachea midline, no thyromegaly Respiratory: no labored breathing, no cough and not tachypneic Auscultation: + rhonchi; no crackles and no wheezes Cardiovascular: RRR, no murmur, no edema Gastrointestinal (Abdomen): normal bowel sounds, soft, nontender, no hepatosplenomegaly Musculoskeletal: Extremities: extremities normal to inspection Skin: no rashes, warm and dry Lymphatic: no cervical lymphadenopathy Results & Data Results & Data Vital Signs (Past 12 Hours) Vital Signs Temp Pulse Resp BP Pulse Ox O2 Del Method O2 Flow Rate 07/13/23 10:40 92 H 18 91 Room Air 07/13/23 10:11 92 Room Air 07/13/23 10:09 87 19 91 Room Air 07/13/23 07:30 Nasal Cannula 2 07/13/23 07:13 36.5 C 87 17 110/80 100 Nasal Cannula 07/13/23 07:06 94 H 18 94 Nasal Cannula 1 PG Care Time/CCT Total # of Minutes Spent Total Time Spent with Patient: Total time spent is greater than 50% in coordination of care (as documented) at patient's floor/unit and/or counseling patient: Coding Level of Care Code 09726 SUB INP/OBS CARE 2/35MIN Diagnoses Pneumonia J18.9 Laterality: unspecified laterality Lung location: unspecified part of lung Pneumonia type: due to unspecified organism Acute on chronic respiratory failure with hypoxia and hypercapnia J96.21; J96.22 Influenza due to identified 2009 H1N1 influenza virus with pneumonia J10.00 Chronic pulmonary aspiration T17.908A Vocal cord weakness J38.00 Chronically elevated hemidiaphragm J98.6
--- NOTE | 2023-07-13 16:17 | Hospitalist Progress Note ---
Date of Service July 13, 2023 Assessment & Plan (1) Acute on chronic respiratory failure with hypoxia and hypercapnia: Plan: acute component 2nd to fluA infection, b/l pneumonia left (severe) > right, left lung mucous plugging, COPD with exacerbation (early in the stay he had had wheezing), pulmonary edema. These issues were treated and largely resolved. chronic component - COPD, left-sided hemidiaphragm elevation, vocal cord paralysis leading to difficulty protecting airway/managing secretions He is very deconditioned at this point which contributes to respiratory muscle weakness. Had bronchoscopy 07/01 notable for mucus plugging on L WORSE on 07/05/23 - CXR at that time with DEANNA again opacified. Previous collapse of DEANNA was due to mucous plugging s/p [facility], bronchoscopy by Dr Moore showing the following - "The right mainstem, right upper lobe, right middle lobe, and right lower lobe were all widely patent with thin secretions present. The mucosa appeared normal. The left mainstem bronchus was widely patent. The left upper lobe and lingula takeoff were patent but demonstrated dynamic collapse with respiration. The left lower lobe bronchi was significantly collapsed." Antibiotics stopped per ICU team, since no evidence of ongoing pneumonia 07/07 failed SBT but passed AM of 07/09 and was extubated. Prior to that on 07/09 had bronchoscopy with findings of thin secretions and no mucus plugging. -fever midmorning 07/10, resolved -pulmonary recommended nocturnal Bipap - refused Bipap pm of 07/09, 07/10, 07/11 - discontinued order -currently minimal O2, very poor exertional tolerance -discussed with RN and turned down O2 today since sats 100% - has hypercarbia -continue guaifenesin and hypertonic saline neb -reviewed recs in pulmonary note -needs a lot of rehab, PT/OT (2) Acute metabolic encephalopathy: Plan: multifactorial - influenza infection, left-sided pneumonia, hypercapnia, hypoxia, meds for sedation for bronch reduced gabapentin to 100 mg tid opioids reduced and tapering may need to reduce mirtazapine or buspar mental status much improved compared to immediately post extubation -would not increase oxycodone in absence of acute pain, would not increase gabapentin, I think high doses of these were significant contributors to his respiratory difficulties (3) Opioid dependence: Plan: typically on oxycodone 15mg q4h prn as outpatient PDMP shows chronic prescriptions for oxy 10's just recently his dose was increased to 15mg tabs as outpatient takes narcotics for chronic back/neck pain - back and neck pain is at usual baseline opioids will contribute to respiratory failure and encephalopathy. No increase in baseline pain currently. in ICU was been on sedation drips and methadone 5 mg bid. 07/11 decreased methadone to 2.5 mg bid, and continue oxycodone 5 mg q4h prn which he asks for frequently 07/13 decreased methadone to 2.5 mg daily for 48h then off (4) Pneumonia: Plan: DEANNA/LLL extensive, severe bacterial superinfection in the setting of fluA infection completed 7 days of cefepime then zosyn, also completed 6 days of atypical coverage with doxy 100mg BID s/p bronch 07/01/[address] Capps - large mucous plugging found in the left bronchial tree; plugs removed all bronch cultures negative to date - no specific bacterial pathogen identified PJP, histo, blasto, and cocci studies that were sent to [facility] lab returned negative s/p bronch 07/[address] Moore without evidence of mucus plugging or ongoing secretions suggestive of pneumonia - antibiotics stopped at that point bronch 07/[address] Moore again with only thin secretions resolved continue monitoring off ABX (5) Vocal cord paralysis: Plan: history of such per records reason for vocal cord paralysis is likely his cervical myelopathy or prior cspine surgery big risk factor for aspiration events as he cannot protect his airway voice is not hoarse currently (6) Chronically elevated hemidiaphragm: Plan: left-side etiology uncertain present for several years [facility] as well as thoracic surgery at [place] three years ago - not amenable to surgical intervention and too weak to tolerate at this time. Contributes to recurrent DEANNA collapse and mucus plugging. Continue hypertonic saline nebs. (7) COPD (chronic obstructive pulmonary disease): Plan: with exacerbation treated with solumedrol earlier in hospital course. prior to admission was on prednisone 5 mg qod for chronic pain? steroids discontinued at risk for secondary adrenal insufficiency - monitor, if hypotensive consider stress dose steroids (8) Positive blood culture: Plan: coag neg staph, 2/8 bottles, and alpha strep /8 bottles. likely contaminants (9) Influenza due to identified 2009 H1N1 influenza virus with pneumonia: Plan: fluA infection tamiflu 75mg BID x 5 days - course completed (10) Sepsis: Plan: 2nd influenza A infection 2nd left-sided pneumonia resolved (11) Hypertension: Plan: not on meds for such follow BPs, normotensive (12) Myelopathy concurrent with and due to spinal stenosis of cervical region: Plan: severe 04/2020 - extensive c-spine surgery by Dr Álvarez outpatient pulmonary note from 2020 suggests that some of his vocal cord paralysis +/- hemidiaphragm elevation could be from prior surgery vs the c-spine disease itself (13) Depression: Plan: cont mirtazapine and buspar. consider decreasing doses if remaining confused/sedated but seems to be doing fairly well (14) Hypophosphatemia: Plan: replaced (15) Acid reflux: Plan: takes pepcid daily at home was having frequent reflux symptoms this entire stay before intubation continue acid suppression with PPI CT chest showed esophageal wall thickening which is suggestive of esophagitis (16) DVT prophylaxis: Plan: SQ heparin bid Plan 07/12 L sided abdominal wall pain - pain very focal c/w abdominal wall pain, may have strained an oblique muscle. Exam benign and eating/drinking. Monitor Goals of care - Family meeting at bedside 07/[address] Moore, Dr Parikh from palliative care team, myself and Mr. Fleming's son and daughter in law. Mr. 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 Trial of bipap is reasonable if he can tolertate it (which he has tolerated poorly in the past), if he were to be reintubated would require trach for hope of improvement, which he had stated in the past he did not want. Discussed with Jules and his son 07/10: comfort care vs reintubation with expectation of trach if he were to worsen, but no decision on this. See prog note 07/10. Has continued to refuse nighttime bipap. Doing well this weekend. I updated his son Jules by phone evening of 07/12, he visited midday 07/13. Admission and Anticipated Discharge Date Admission Date: June 29, 2023 Subjective Jules is awake today, doing ok, no PT/OT notes since 07/10, spoke with RN his son came in to visit, I came back to talk to him but he had already left. +cough, no chest pain, not short of breath, left side pain resolving Physical Exam 2 Physical Exam: PHYSICAL EXAMINATION Last 24h vital signs reviewed, see documentation in flowsheet General: lying flat in bed HEENT: Normocephalic, atraumatic, pupils round and equal, sclerae anicteric, no conjunctival injection, moist mucus membranes Lungs: CTAB no rrw, mildly tachypneic nonlabored Heart: no longer tachycardic Regular rate and rhythm, no murmurs. No JVD Abdomen: Has an area of focal mild tenderness laterally on L side of abdomen just inferior to ribs - seems resolved. Abdomen itself NTND +BT Extremities: Warm, dry, well-perfused. No extremity edema. Neuro: face symmetric, eduar, awake and alert oriented to hospital and basic situation, conversational, [id number], significant global weakness Psych: calm, normal affect and behavior Results & Data Results & Data Vital Signs (Past 12 Hours) Vital Signs Temp Pulse Resp BP BP Pulse Ox O2 Del Method 07/13/23 15:30 36.6 C 112 H 18 112/78 97 Nasal Cannula 07/13/23 15:01 113 H 18 90 Room Air 07/13/23 10:40 92 H 18 91 Room Air 07/13/23 10:11 92 Room Air 07/13/23 10:09 87 19 91 Room Air 07/13/23 07:30 Nasal Cannula 07/13/23 07:13 36.5 C 87 17 110/80 100 Nasal Cannula 07/13/23 07:06 94 H 18 94 Nasal Cannula O2 Flow Rate 07/13/23 15:30 2 07/13/23 15:01 07/13/23 10:40 07/13/23 10:11 07/13/23 10:09 07/13/23 07:30 2 07/13/23 07:13 07/13/23 07:06 1 Laboratory Results 07/13/23 07:18 07/13/23 07:18 PG Care Time/CCT Total # of Minutes Spent Total Time Spent with Patient: Total time spent is greater than 50% in coordination of care (as documented) at patient's floor/unit and/or counseling patient: Coding Level of Care Code 01947 SUB INP/OBS CARE 2/35MIN Diagnoses Acute on chronic respiratory failure with hypoxia and hypercapnia J96.21; J96.22 Acute metabolic encephalopathy G93.41 Opioid dependence F11.20 Pneumonia J18.9 Laterality: unspecified laterality Lung location: unspecified part of lung Pneumonia type: due to unspecified organism Vocal cord paralysis J38.00 Chronically elevated hemidiaphragm J98.6 Chronic obstructive pulmonary disease, unspecified COPD type J44.9 COPD type: unspecified COPD Positive blood culture R78.81 Influenza due to identified 2009 H1N1 influenza virus with pneumonia J10.00 Sepsis A41.9 Sepsis acute organ dysfunction status: unspecified Sepsis type: sepsis due to unspecified organism Primary hypertension I10 Hypertension type: primary hypertension Myelopathy concurrent with and due to spinal stenosis of cervical region M48.02; G99.2 Depression F32.0 Active/Remission status: currently active Depression Type: major depressive disorder Major depression episode severity: mild Major depression recurrence: single episode Hypophosphatemia E83.39 Acid reflux K21.9 DVT prophylaxis Z29.9 (4) Pneumonia Laterality: unspecified laterality Lung location: unspecified part of lung P neumonia type: due to unspecified organism Qualified Code(s): J18.9 - Pneumonia, unspecified organism (7) COPD (chronic obstructive pulmonary disease) COPD type: unspecified COPD Qualified Code(s): J44.9 - Chronic obstructive pulmonary disease, unspecified (10) Sepsis Sepsis acute organ dysfunction status: unspecified Sepsis type: sepsis due to unspecified organism Qualified Code(s): A41.9 - Sepsis, unspecified organism (11) Hypertension Hypertension type: primary hypertension Qualified Code(s): I10 - Essential (primary) hypertension (13) Depression Active/Remission status: currently active Depression Type: major depressive disorder Major depression episode severity: mild Major depression recurrence: single episode Qualified Code(s): F32.0 - Major depressive disorder, single episode, mild
[2023-07-13] MEDS: ENOXAPARIN INJ 40 MG/0.4 ML SYR SQ SCH (19:52)
[2023-07-13] MEDS: ATORVASTATIN 10 MG TAB PO SCH (19:52)
[2023-07-13] MEDS: MIRTAZAPINE TAB 15 MG TAB PO SCH (19:52)
--- NOTE | 2023-07-13 21:23 | Communication Note ---
Date of Service: July 13, 2023 Brief Palliative Medicine Note We have been following pt peripherally since last progress note. Family continues to remain unwilling to make decision. Patient himself is refusing reccs and does not adhere or comply with medical reccs even as far as positioning, OOB etc. Patient is indicating a preference for symptom focused care though he has not clearly stated so and son has been unwilling to make decision in hopes that pt's mental clarity will significantly improve "to enable him to make the decision himself." I am available to assist with a MDT family meeting if it is felt this would be helpful but otherwise will remain peripheral as there are currently no high acuity inpatient pall med needs warranting daily evaluation. pt not seen/NO charge submitted. Thank you for allowing us to participate in the ongoing care of this patient. Please don't hesitate to call or page with any additional concerns. Dr. Elsy Parikh DNP Director, Palliative Care
[2023-07-14] MEDS: oxyCODONE HCL IR 5 MG TAB (IMMEDIATE RELEASE) PO PRN ×6 (03:56→23:34)
[2023-07-14] MEDS: ONDANSETRON 4 MG OD TAB PO PRN (04:36)
[2023-07-14] MEDS: ALBUT/IPRATROP 3MG/0.5MG NEB 3 ML VIAL NEB SCH ×4 (07:07→19:56)
[2023-07-14] MEDS: SODIUM CHLOR 7% 4 ML NEB NEB SCH ×2 (07:07→19:56)
[2023-07-14] MEDS: CALCIUM 600MG + VIT D 400 IU TAB PO SCH ×2 (07:42→20:41)
[2023-07-14] MEDS: ACETAMINOPHEN 325 MG TAB PO SCH ×4 (07:42→20:40)
[2023-07-14] MEDS: THIAMINE HCL 100 MG TAB PO SCH (07:43)
[2023-07-14] MEDS: buPROPion XL 150 MG TABCR PO SCH (07:43)
[2023-07-14] MEDS: GABAPENTIN 100 MG CAP PO SCH ×3 (07:43→20:41)
[2023-07-14] MEDS: CEROVITE ADV FORMULA TAB PO SCH (07:43)
[2023-07-14] MEDS: PANTOprazole 40 MG TAB PO SCH (07:43)
[2023-07-14] MEDS: busPIRone 15 MG TAB PO SCH ×2 (07:44→20:42)
[2023-07-14] MEDS: METHADONE HCL 5 MG TAB PO SCH (08:13)
--- NOTE | 2023-07-14 13:38 | Hospitalist Progress Note ---
Date of Service July 14, 2023 Assessment & Plan (1) Acute on chronic respiratory failure with hypoxia and hypercapnia: Plan: acute component 2nd to fluA infection, b/l pneumonia left (severe) > right, left lung mucous plugging, COPD with exacerbation (early in the stay he had had wheezing), pulmonary edema. These issues were treated and largely resolved. chronic component - COPD, left-sided hemidiaphragm elevation, vocal cord paralysis leading to difficulty protecting airway/managing secretions He is very deconditioned at this point which contributes to respiratory muscle weakness. Had bronchoscopy 07/01 notable for mucus plugging on L WORSE on 07/05/23 - CXR at that time with DEANNA again opacified. Previous collapse of DEANNA was due to mucous plugging s/p elective intubation and mech ventilation AM 07/06, bronchoscopy by Dr Moore showing the following - "The right mainstem, right upper lobe, right middle lobe, and right lower lobe were all widely patent with thin secretions present. The mucosa appeared normal. The left mainstem bronchus was widely patent. The left upper lobe and lingula takeoff were patent but demonstrated dynamic collapse with respiration. The left lower lobe bronchi was significantly collapsed." Antibiotics stopped per ICU team, since no evidence of ongoing pneumonia 07/07 failed SBT but passed AM of 07/09 and was extubated. Prior to that on 07/09 had bronchoscopy with findings of thin secretions and no mucus plugging. -fever midmorning 07/10, resolved -pulmonary recommended nocturnal Bipap - refused Bipap pm of 07/09, 07/10, 07/11 - discontinued order -currently minimal O2 requirement, very poor exertional tolerance -continue guaifenesin and hypertonic saline neb -reviewed recs in pulmonary note -needs a lot of rehab, PT/OT -Slowly improving (2) Acute metabolic encephalopathy: Plan: multifactorial - influenza infection, left-sided pneumonia, hypercapnia, hypoxia, meds for sedation for bronch reduced gabapentin to 100 mg tid opioids reduced and tapering down methadone mental status much improved compared to immediately post extubation -would not increase oxycodone in absence of acute pain, would not increase gabapentin, I think high doses of these were significant contributors to his respiratory difficulties (3) Opioid dependence: Plan: typically on oxycodone 15mg q4h prn as outpatient PDMP shows chronic prescriptions for oxy 10's just recently his dose was increased to 15mg tabs as outpatient takes narcotics for chronic back/neck pain - back and neck pain is at usual baseline opioids will contribute to respiratory failure and encephalopathy. No increase in baseline pain currently. in ICU was on sedation drips and methadone 5 mg bid. 07/11 decreased methadone to 2.5 mg bid, and continue oxycodone 5 mg q4h prn which he asks for frequently 07/13 decreased methadone to 2.5 mg daily for 48h then off (4) Pneumonia: Plan: DEANNA/LLL, extensive, severe, bacterial superinfection in the setting of fluA infection completed 7 days of cefepime then zosyn, also completed 6 days of atypical c overage with doxy 100mg BID s/p bronch 07/01/[address] Capps - large mucous plugging found in the left bronchial tree; plugs removed all bronch cultures negative to date -except Magalie albicans which is likely colonizer PJP, histo, blasto, and cocci studies that were sent to [facility] lab returned negative s/p bronch 07/[address] Moore without evidence of mucus plugging or ongoing secretions suggestive of pneumonia - antibiotics stopped at that point bronch 07/[address] Moore again with only thin secretions 07/12 L sided abdominal wall pain - pain very focal c/w abdominal wall pain, may have strained an oblique muscle. Exam benign and eating/drinking. Monitor- continues with some pain there with cough resolved continue monitoring off ABX (5) Vocal cord paralysis: Plan: history of such per records-reason for vocal cord paralysis is likely his cervical myelopathy or prior cspine surgery big risk factor for aspiration events as he cannot protect his airway voice is not hoarse currently (6) Chronically elevated hemidiaphragm: Plan: left-side, etiology uncertain, present for several years has seen [facility] for this as outpatient as well as thoracic surgery at [place] three years ago - not amenable to surgical intervention and too weak to tolerate at this time. Contributes to recurrent DEANNA collapse and mucus plugging. Continue hypertonic saline nebs. (7) COPD (chronic obstructive pulmonary disease): Plan: with exacerbation treated with solumedrol earlier in hospital course. prior to admission was on prednisone 5 mg qod for chronic pain? steroids discontinued at risk for secondary adrenal insufficiency - monitor, if hypotensive consider stress dose steroids (8) Positive blood culture: Plan: coag neg staph, 2/8 bottles, and alpha strep 1/8 bottles. likely contaminants (9) Influenza due to identified 2009 H1N1 influenza virus with pneumonia: Plan: fluA infection tamiflu 75mg BID x 5 days - course completed (10) Sepsis: Plan: 2nd influenza A infection and left-sided pneumonia-resolved (11) Myelopathy concurrent with and due to spinal stenosis of cervical region: Plan: severe 04/2020 - extensive c-spine surgery by Dr Álvarez outpatient pulmonary note from 2020 suggests that some of his vocal cord paralysis +/- hemidiaphragm elevation could be from prior surgery vs the c-spine disease itself (12) Depression: Plan: cont mirtazapine and buspar. consider decreasing doses if remaining confused/se dated but seems to be doing fairly well (13) Acid reflux: Plan: takes pepcid daily at home was having frequent reflux symptoms this entire stay before intubation continue acid suppression with PPI CT chest showed esophageal wall thickening which is suggestive of esophagitis Follow-up as an outpatient with GI Plan DVT prophylaxis-Lovenox SQ Disposition-continued stay but medically stable for discharge to rehab Goals of care - Family meeting at bedside 07/[address] Moore, Dr Parikh from palliative care team, previous hospitalist, and Mr. Fleming's son and daughter in law. Mr. 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 Trial of bipap is reasonable if he can tolerate it (which he has tolerated poorly in the past), if he were to be reintubated would require trach for hope of improvement, which he had stated in the past he did not want. Discussions ongoing with palliative Admission and Anticipated Discharge Date Admission Date: June 29, 2023 Subjective Patient is feeling okay. He feels tired and was not willing to work with PT today. He is weaned down to half liters of nasal cannula supplemental O2. Reports his home O2 is at 2 L. Denies chest pain. He is eating. Physical Exam Constitutional: WD/WN, vitals as above Respiratory: normal respiratory effort; no cough Auscultation: + diminished lung sounds (Throughout); no crackles, no rhonchi and no wheezes Cardiovascular: RRR, no murmur, no edema Gastrointestinal (Abdomen): normal bowel sounds, soft, nontender, no hepatosplenomegaly Psychiatric: A+Ox3, euthymic affect Results & Data Results & Data Vital Signs (Past 12 Hours) Vital Signs Temp Pulse Resp BP Pulse Ox O2 Del Method O2 Flow Rate 07/14/23 11:13 100 H 17 92 Nasal Cannula 0.5 07/14/23 09:53 36.7 C 96 H 16 104/74 96 Room Air 07/14/23 07:50 Nasal Cannula 1 07/14/23 07:07 98 H 18 95 Nasal Cannula 0.5 Laboratory Results Bronch washings reviewed-with Magalie PG Care Time/CCT Total # of Minutes Spent Total Time Spent with Patient: Total time spent is greater than 50% in coordination of care (as documented) at patient's floor/unit and/or counseling patient: Coding Level of Care Code 66227 SUB INP/OBS CARE 2/35MIN Diagnoses Acute on chronic respiratory failure with hypoxia and hypercapnia J96.21; J96.22 Acute metabolic encephalopathy G93.41 Opioid dependence F11.20 Pneumonia J18.9 Laterality: unspecified laterality Lung location: unspecified part of lung Pneumonia type: due to unspecified organism Vocal cord paralysis J38.00 Chronically elevated hemidiaphragm J98.6 Chronic obstructive pulmonary disease, unspecified COPD type J44.9 COPD type: unspecified COPD Positive blood culture R78.81 Influenza due to identified 2009 H1N1 influenza virus with pneumonia J10.00 Sepsis A41.9 Sepsis acute organ dysfunction status: unspecified Sepsis type: sepsis due to unspecified organism Myelopathy concurrent with and due to spinal stenosis of cervical region M48.02; G99.2 Depression F32.0 Active/Remission status: currently active Depression Type: major depressive disorder Major depression episode severity: mild Major depression recurrence: single episode Acid reflux K21.9 (4) Pneumonia Laterality: unspecified laterality Lung location: unspecified part of lung Pneumonia type: due to unspecified organism Qualified Code(s): J18.9 - Pneumonia, unspecified organism (7) COPD (chronic obstructive pulmonary disease) COPD type: unspecified COPD Qualified Code(s): J44.9 - Chronic obstructive pulmonary disease, unspecified (10) Sepsis Sepsis acute organ dysfunction status: unspecified Sepsis type: sepsis due to unspecified organism Qualified Code(s): A41.9 - Sepsis, unspecified organism (12) Depression Active/Remission status: currently active Depression Type: major depressive disorder Major depression episode severity: mild Major depression recurrence: single episode Qualified Code(s): F32.0 - Major depressive disorder, single episode, mild
[2023-07-14] MEDS: ENOXAPARIN INJ 40 MG/0.4 ML SYR SQ SCH (20:40)
[2023-07-14] MEDS: ATORVASTATIN 10 MG TAB PO SCH (20:42)
[2023-07-14] MEDS: MIRTAZAPINE TAB 15 MG TAB PO SCH (20:42)
[2023-07-15] MEDS: oxyCODONE HCL IR 5 MG TAB (IMMEDIATE RELEASE) PO PRN ×5 (03:39→20:41)
[2023-07-15] MEDS: ONDANSETRON 4 MG OD TAB PO PRN (05:59)
[2023-07-15] MEDS: SODIUM CHLOR 7% 4 ML NEB NEB SCH ×2 (07:28→20:21)
[2023-07-15] MEDS: ALBUT/IPRATROP 3MG/0.5MG NEB 3 ML VIAL NEB SCH ×3 (07:28→20:21)
[2023-07-15] MEDS: ACETAMINOPHEN 325 MG TAB PO SCH ×2 (07:33→12:05)
[2023-07-15] MEDS: METHADONE HCL 5 MG TAB PO SCH ×2 (07:34→20:41)
[2023-07-15] MEDS: CALCIUM 600MG + VIT D 400 IU TAB PO SCH ×2 (07:35→20:43)
[2023-07-15] MEDS: GABAPENTIN 100 MG CAP PO SCH ×2 (07:36→14:54)
[2023-07-15] MEDS: busPIRone 15 MG TAB PO SCH ×2 (07:36→20:43)
[2023-07-15] MEDS: CEROVITE ADV FORMULA TAB PO SCH (07:42)
[2023-07-15] MEDS: PANTOprazole 40 MG TAB PO SCH (07:42)
[2023-07-15] MEDS: buPROPion XL 150 MG TABCR PO SCH (07:42)
[2023-07-15] MEDS: THIAMINE HCL 100 MG TAB PO SCH (07:42)
[2023-07-15 08:37] LABS: Basophils # (auto) 0.04 K/uL (0.00-0.20); Basophils % (auto) 0.5 %; Eosinophils # (auto) 0.06 K/uL (0.00-0.50); Eosinophils % (auto) 0.8 %; Hematocrit (blood only) 37.2 % (42.0-52.0); Hemoglobin 12.9 g/dl (14.0-18.0); Immature Granulocytes # (auto) 0.12 K/uL (0.01-0.20); Immature Granulocytes % (auto) 1.6 %; Lymphocytes # (auto) 1.29 K/uL (1.20-3.40); Lymphocytes % (auto) 17.5 %; Mean Corpuscular Hemoglobin 31.5 pg (25.0-34.0); Mean Corpuscular Hgb Conc 34.7 g/dL (32.0-36.0); Mean Platelet Volume 11.1 fL (9.4-12.4); Monocytes # (auto) 0.57 K/uL (0.11-0.59); Monocytes % (auto) 7.7 %; Neutrophils # (auto) 5.29 K/uL (1.40-6.50); Neutrophils % (auto) 71.9 %; Platelet Count 267 K/uL (130-400); RDW Coefficient of Variation 13.1 % (11.5-14.5); RDW Standard Deviation 42.4 fL (36.4-46.3); Red Blood Count 4.09 M/uL (4.70-6.10); White Blood Count 7.37 K/ul (4.8-10.8)
[2023-07-15 08:57] LABS: Albumin Level 3.8 gm/dl (3.4-5.0); Bilirubin,Total 0.4 mg/dl (0.2-1.0); Calcium 10.1 mg/dl (8.6-10.3); Magnesium 2.1 mg/dl (1.7-2.4); Potassium 4.1 mmol/L (3.5-5.1)
[2023-07-15 09:02] LABS: Albumin Globulin Ratio 1.3 (0.9-2); BUN Creatinine Ratio 25.7 (10-20); Creatinine Clr Calc Pharmacy 89.3 ml/min; Est GFR (African American) 109.8 ml/min; Est GFR (Non-African American) 94.8 ml/min; Globulin 2.9 gm/dl (2.5-4.0); Total Protein 6.7 gm/dl (6.0-8.3)
[2023-07-15] MEDS ORDERED: ALBUT/IPRATROP 3MG/0.5MG NEB 3 ML VIAL NEB PRN (11:44)
--- NOTE | 2023-07-15 16:13 | Hospitalist Progress Note ---
Date of Service July 15, 2023 Assessment & Plan (1) Acute on chronic respiratory failure with hypoxia and hypercapnia: Plan: acute component 2nd to fluA infection, b/l pneumonia left (severe) > right, left lung mucous plugging, COPD with exacerbation (early in the stay he had had wheezing), pulmonary edema. These issues were treated and largely resolved. chronic component - COPD, left-sided hemidiaphragm elevation, vocal cord paralysis leading to difficulty protecting airway/managing secretions He is very deconditioned at this point which contributes to respiratory muscle weakness. Had bronchoscopy 07/01 notable for mucus plugging on L WORSE on 07/05/23 - CXR at that time with DEANNA again opacified. Previous collapse of DEANNA was due to mucous plugging s/p elective intubation and [facility] ventilation AM 07/06, bronchoscopy by Dr Moore showing the following - "The right mainstem, right upper lobe, right middle lobe, and right lower lobe were all widely patent with thin secretions present. The mucosa appeared normal. The left mainstem bronchus was widely patent. The left upper lobe and lingula takeoff were patent but demonstrated dynamic collapse with respiration. The left lower lobe bronchi was significantly collapsed." Antibiotics stopped per ICU team, since no evidence of ongoing pneumonia 07/07 failed SBT but passed AM of 07/09 and was extubated. Prior to that on 07/09 had bronchoscopy with findings of thin secretions and no mucus plugging. -fever midmorning 07/10, resolved -pulmonary recommended nocturnal Bipap - refused Bipap pm of 07/09, 07/10, 07/11 - discontinued order -currently minimal O2 requirement, very poor exertional tolerance -continue guaifenesin and hypertonic saline neb but reduce to twice daily -reviewed recs in pulmonary note -needs a lot of rehab, PT/OT -Much improved (2) Influenza due to identified 2009 H1N1 influenza virus with pneumonia: Plan: fluA infection with sepsis, POA and pneumonia tamiflu 75mg BID x 5 days , antibiotics- course completed (3) Acute metabolic encephalopathy: Plan: multifactorial - influenza infection, left-sided pneumonia, hypercapnia, hypoxia , meds for sedation for bronch reduced gabapentin to 100 mg tid but now increasing as below for worsening chronic pain opioids reduced mental status at baseline (4) Opioid dependence: Plan: typically on oxycodone 15mg q4h prn and gabapentin 900 Mg 3 times daily as outpatient for chronic back/neck pain Because of the concern that the opioids and gabapentin contributed to his respiratory failure and encephalopathy, these medications were significantly reduced this hospitalization He is now having significant return of his neuropathy and back pain and is asking for an increase in pain medication -Increase methadone back to 2.5 Mg p.o. twice daily and titrate up as needed, continue to use oxycodone 5 Mg as needed for breakthrough pain which is a significant reduction from his home dose -Increase gabapentin back to 300 Mg p.o. 3 times daily -Monitor for improvement in pain and for any adverse side effects (5) Pneumonia: Plan: DEANNA/LLL, extensive, severe, bacterial superinfection in the setting of fluA infection completed 7 days of cefepime then zosyn, also completed 6 days of atypical coverage with doxy 100mg BID s/p bronch 07/01/[address] Capps - large mucous plugging found in the left bronchial tree; plugs removed all bronch cultures negative to date -except Magalie albicans which is likely colonizer PJP, histo, blasto, and cocci studies that were sent to [facility] lab returned negative s/p bronch 07/[address] Moore without evidence of mucus plugging or ongoing secretions suggestive of pneumonia - antibiotics stopped at that point bronch 07/[address] Moore again with only thin secretions 07/12 L sided abdominal wall pain - pain very focal c/w abdominal wall pain, may have strained an oblique muscle. Exam benign and eating/drinking. Monitor- continues with some pain there with cough resolved continue monitoring off ABX (6) Vocal cord paralysis: Plan: history of such per records-reason for vocal cord paralysis is likely his cervical myelopathy or prior cspine surgery big risk factor for aspiration events as he cannot protect his airway voice is not hoarse currently (7) Chronically elevated hemidiaphragm: Plan: left-side, etiology uncertain, present for several years [facility] as well as thoracic surgery at [place] three years ago - not amenable to surgical intervention and too weak to tolerate at this time. Contributes to recurrent DEANNA collapse and mucus plugging. (8) COPD (chronic obstructive pulmonary disease): Plan: with exacerbation treated with solumedrol earlier in hospital course. prior to admission was on prednisone 5 mg qod for chronic pain? steroids discont inued at risk for secondary adrenal insufficiency - monitor, if hypotensive consider stress dose steroids (9) Positive blood culture: Plan: coag neg staph, 2/8 bottles, and alpha strep 1/8 bottles. likely contaminants (10) Myelopathy concurrent with and due to spinal stenosis of cervical region: Plan: severe 04/2020 - extensive c-spine surgery by Dr Álvarez outpatient pulmonary note from 2020 suggests that some of his vocal cord paralysis +/- hemidiaphragm elevation could be from prior surgery vs the c-spine disease itself (11) Depression: Plan: cont mirtazapine and buspar (12) Acid reflux: Plan: takes pepcid daily at home was having frequent reflux symptoms this entire stay before intubation continue acid suppression with PPI CT chest showed esophageal wall thickening which is suggestive of esophagitis Follow-up as an outpatient with GI Plan DVT prophylaxis-Lovenox SQ Disposition-continued stay but medically stable for discharge to rehab Goals of care - Family meeting at bedside 07/[address] Moore, Dr Parikh from palliative care team, previous hospitalist, and Mr. Fleming's son and daughter in law. Mr. 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 Trial of bipap is reasonable if he can tolerate it (which he has tolerated poorly in the past), if he were to be reintubated would require trach for hope of improvement, which he had stated in the past he did not want. Patient has now told me on 07/15 that he definitely would not ever want to be intubated again, but is okay with chest compressions, defibrillation, and ACLS medications and a conditional CODE STATUS. Admission and Anticipated Discharge Date Admission Date: June 29, 2023 Subjective Patient complains of being in severe pain from his chronic pain in the low back and is asking for the methadone to be increased. He also complains of severe burning pain in the feet which he thinks is from sciatica. I reviewed his chart and noted that his gabapentin was reduced from 900 Mg 3 times daily down to 100 Mg 3 times daily this admission. The methadone was started when he was in the ICU to help manage his chronic pain and was noted to be helpful. He has been requesting frequent doses of oxycodone. The Tylenol is not helping his pain at all. He reports his appetite is very low because he has such severe pain. We discussed the possible adverse side effects of increasing medications that can cause drowsiness to include compromise of his airway. He reports that he would rather have improved quality of life with better pain control even if it compromises his breathing. And he has made the decision that he would not want to be intubated for any reason or to have a tracheostomy. He would however like a trial of CPR in the event of cardiac arrest but no intubation. CODE STATUS was changed appropriately. Physical Exam Constitutional: WD/WN, vitals as above Respiratory: normal respiratory effort; no cough Auscultation: + diminished lung sounds (Throughout); no crackles, no rhonchi and no wheezes Cardiovascular: RRR, no murmur, no edema Gastrointestinal (Abdomen): normal bowel sounds, soft, nontender, no hepatosplenomegaly Psychiatric: A+Ox3, euthymic affect Results & Data Results & Data Vital Signs (Past 12 Hours) Vital Signs Temp Pulse Resp BP BP Pulse Ox O2 Del Method 07/15/23 15:59 36.7 C 97 H 18 103/66 90 Room Air 07/15/23 08:00 36.5 C 89 20 117/75 92 Nasal Cannula 07/15/23 07:30 96 H 14 90 O2 Flow Rate 07/15/23 15:59 07/15/23 08:00 0.5 07/15/23 07:30 0.5 Laboratory Results CBC, BMP, LFTs, magnesium reviewed PG Care Time/CCT Total # of Minutes Spent Total Time Spent with Patient: Total time spent is greater than 50% in coordination of care (as documented) at patient's floor/unit and/or counseling patient: Coding Level of Care Code 68509 SUB INP/OBS CARE 2/35MIN Diagnoses Acute on chronic respiratory failure with hypoxia and hypercapnia J96.21; J96.22 Influenza due to identified 2009 H1N1 influenza virus with pneumonia J10.00 Acute metabolic encephalopathy G93.41 Opioid dependence F11.20 Pneumonia J18.9 Laterality: unspecified laterality Lung location: unspecified part of lung Pneumonia type: due to unspecified organism Vocal cord paralysis J38.00 Chronically elevated hemidiaphragm J98.6 Chronic obstructive pulmonary disease, unspecified COPD type J44.9 COPD type: unspecified COPD Positive blood culture R78.81 Myelopathy concurrent with and due to spinal stenosis of cervical region M48.02; G99.2 Depression F32.0 Active/Remission status: currently active Depression Type: major depressive disorder Major depression episode severity: mild Major depression recurrence: single episode Acid reflux K21.9 (5) Pneumonia Laterality: unspecified laterality Lung location: unspecified part of lung Pneumonia type: due to unspecified organism Qualified Code(s): J18.9 - Pneumonia, unspecified organism (8) COPD (chronic obstructive pulmonary disease) COPD type: unspecified COPD Qualified Code(s): J44.9 - Chronic obstructive p ulmonary disease, unspecified (11) Depression Active/Remission status: currently active Depression Type: major depressive disorder Major depression episode severity: mild Major depression recurrence: single episode Qualified Code(s): F32.0 - Major depressive disorder, single episode, mild
[2023-07-15] MEDS ORDERED: GABAPENTIN 100 MG CAP PO ONE (16:28)
[2023-07-15] MEDS: ENOXAPARIN INJ 40 MG/0.4 ML SYR SQ SCH (20:41)
[2023-07-15] MEDS: ATORVASTATIN 10 MG TAB PO SCH (20:42)
[2023-07-15] MEDS: MIRTAZAPINE TAB 15 MG TAB PO SCH (20:42)
[2023-07-15] MEDS ORDERED: METHADONE HCL 5 MG TAB PO SCH (21:00)
[2023-07-15] MEDS: GABAPENTIN 300 MG CAP PO SCH (21:19)
[2023-07-16] MEDS: oxyCODONE HCL IR 5 MG TAB (IMMEDIATE RELEASE) PO PRN ×5 (01:57→20:28)
[2023-07-16] MEDS: SODIUM CHLOR 7% 4 ML NEB NEB SCH ×2 (07:33→20:08)
[2023-07-16] MEDS: ALBUT/IPRATROP 3MG/0.5MG NEB 3 ML VIAL NEB SCH ×2 (07:33→20:08)
[2023-07-16] MEDS: METHADONE HCL 5 MG TAB PO SCH ×2 (08:12→21:13)
[2023-07-16] MEDS: buPROPion XL 150 MG TABCR PO SCH (08:13)
[2023-07-16] MEDS: PANTOprazole 40 MG TAB PO SCH (08:13)
[2023-07-16] MEDS: GABAPENTIN 300 MG CAP PO SCH ×3 (08:13→20:31)
[2023-07-16] MEDS: busPIRone 15 MG TAB PO SCH ×2 (08:13→20:31)
[2023-07-16] MEDS: CEROVITE ADV FORMULA TAB PO SCH (08:13)
[2023-07-16] MEDS: CALCIUM 600MG + VIT D 400 IU TAB PO SCH ×2 (08:13→20:31)
[2023-07-16] MEDS: THIAMINE HCL 100 MG TAB PO SCH (08:13)
[2023-07-16] MEDS: ACETAMINOPHEN 325 MG TAB PO PRN (12:20)
[2023-07-16] MEDS: POLYETHYLENE (MIRALAX) 17 GM PACK PO SCH (12:21)
--- NOTE | 2023-07-16 12:40 | Hospitalist Progress Note ---
Date of Service July 16, 2023 Assessment & Plan (1) Acute on chronic respiratory failure with hypoxia and hypercapnia: Plan: acute component 2nd to fluA infection, b/l pneumonia left (severe) > right, left lung mucous plugging, COPD with exacerbation (early in the stay he had had wheezing), pulmonary edema. These issues were treated and are now resolved. chronic component - COPD, left-sided hemidiaphragm elevation, vocal cord paralysis leading to difficulty protecting airway/managing secretions He is very deconditioned at this point which contributes to respiratory muscle weakness. Had bronchoscopy 07/01 notable for mucus plugging on L WORSE on 07/05/23 - CXR at that time with DEANNA again opacified. Previous collapse of DEANNA was due to mucous plugging s/p elective intubation and [facility] AM 07/06, bronchoscopy by Dr Moore showing the following - "The right mainstem, right upper lobe, right middle lobe, and right lower lobe were all widely patent with thin secretions present. The mucosa appeared normal. The left mainstem bronchus was widely patent. The left upper lobe and lingula takeoff were patent but demonstrated dynamic collapse with respiration. The left lower lobe bronchi was significantly collapsed." Antibiotics stopped per ICU team, since no evidence of ongoing pneumonia 07/07 failed SBT but passed AM of 07/09 and was extubated. Prior to that on 07/09 had bronchoscopy with findings of thin secretions and no mucus plugging. -fever midmorning 07/10, resolved -pulmonary recommended nocturnal Bipap - refused Bipap pm of 07/09, 07/10, 07/11 - discontinued order -currently minimal O2 requirement, very poor exertional tolerance -continue guaifenesin and hypertonic saline neb but reduced to twice daily -needs rehab -Much improved (2) Influenza due to identified 2009 H1N1 influenza virus with pneumonia: Plan: fluA infection with sepsis, POA and pneumonia tamiflu 75mg BID x 5 days , antibiotics- course completed (3) Acute metabolic encephalopathy: Plan: multifactorial - influenza infection, left-sided pneumonia, hypercapnia, hypoxia, meds for sedation for bronch while in ICU, reduced gabapentin to 100 mg tid but now increasing as below for worsening chronic pain opioids reduced mental status normal (4) Opioid dependence: Plan: typically on oxycodone 15mg q4h prn and gabapentin 900 Mg 3 times daily as outpatient for chronic back/neck pain Because of the concern that the opioids and gabapentin contributed to his respiratory failure and encephalopathy, these medications were significantly reduced this hospitalization He then had significant return of his neuropathy and back pain and is asking for an increase in pain medication -Increased methadone to 2.5 Mg p.o. twice daily and titrate up as needed after discharge, continue to use oxycodone 5 Mg as needed for breakthrough pain which is a significant reduction from his home dose -Increased gabapentin back to 300 Mg p.o. 3 times daily (home dose was 900mg po tid) -Pain now greatly improved -continue to monitor for improvement in pain and for any adverse side effects -monitor ECG periodically on methadone to check QTc (normal earlier in stay)- check ECG today (5) Pneumonia: Plan: DEANNA/LLL, extensive, severe, bacterial superinfection in the setting of fluA infection completed 7 days of cefepime then zosyn, also completed 6 days of atypical coverage with doxy 100mg BID s/p bronch 07/01/[address] Capps - large mucous plugging found in the left bronchial tree; plugs removed all bronch cultures negative to date -except Magalie albicans which is likely colonizer PJP, histo, blasto, and cocci studies that were sent to [facility] lab returned negative s/p bronch 07/[address] Moore without evidence of mucus plugging or ongoing secretions suggestive of pneumonia - antibiotics stopped at that point bronch 07/[address] Moore again with only thin secretions 07/12 L sided abdominal wall pain - pain very focal c/w abdominal wall pain, may have strained an oblique muscle. Exam benign and eating/drinking. Monitor- continues with some pain there with cough resolved continue monitoring off ABX (6) Vocal cord paralysis: Plan: history of such per records-reason for vocal cord paralysis is likely his cervical myelopathy or prior cspine surgery big risk factor for aspiration events as he cannot protect his airway voice is not hoarse currently (7) Chronically elevated hemidiaphragm: Plan: left-side, etiology uncertain, present for several years has seen [facility] for this as outpatient as well as thoracic surgery at [place] three years ago - not amenable to surgical intervention and too weak to tolerate at this time. Contributes to recurrent DEANNA collapse and mucus plugging. (8) COPD (chronic obstructive pulmonary disease): Plan: with exacerbation treated with solumedrol earlier in hospital course. prior to admission was on prednisone 5 mg qod for chronic pain? steroids discontinued at risk for secondary adrenal insufficiency - monitor, if hypotensive consider stress dose steroids (9) Positive blood culture: Plan: coag neg staph, 2/8 bottles, and alpha strep 1/8 bottles. likely contaminants (10) Myelopathy concurrent with and due to spinal stenosis of cervical region: Plan: severe 04/2020 - extensive c-spine surgery by Dr Álvarez outpatient pulmonary note from 2020 suggests that some of his vocal cord paralysis +/- hemidiaphragm elevation could be from prior surgery vs the c-spine disease itself (11) Depression: Plan: cont mirtazapine and buspar (12) Acid reflux: Plan: takes pepcid daily at home was having frequent reflux symptoms this entire stay before intubation continue acid suppression with PPI and dc pepcid CT chest showed esophageal wall thickening which is suggestive of esophagitis Follow-up as an outpatient with GI Plan DVT prophylaxis-Lovenox SQ Disposition-continued stay but medically stable for discharge to rehab-awaiting placement Goals of care - Family meeting at bedside 07/[address] Moore, Dr Parikh from palliative care team, previous hospitalist, and Mr. Fleming's son and daughter in law. Mr. Fleming has stated in past he did not want trach, halfway mechanical ventilation, SNF. Trial of bipap is reasonable if he can tolerate it (which he has tolerated poorly in the past), if he were to be reintubated would require trach for hope of improvement, which he had stated in the past he did not want. Patient has now told me on 07/15 that he definitely would not ever want to be intubated again, but is okay with chest compressions, defibrillation, and ACLS medications and a conditional CODE STATUS. Admission and Anticipated Discharge Date Admission Date: June 29, 2023 Anticipated date of discharge: 07/17/23 Subjective He is very pleased today that his chronic back pain and neuropathy pain is greatly improved with changes made yesterday. He is OOB to a chair and worked with PT. Denies any worsening of his usual SOB. Is eating but not moving bowels regularly-requests laxative Physical Exam Constitutional: WD/WN, vitals as above Respiratory: normal respiratory effort; no cough Auscultation: + diminished lung sounds (Throughout); no crackles, no rhonchi and no wheezes Cardiovascular: RRR, no murmur, no edema Gastrointestinal (Abdomen): normal bowel sounds, soft, nontender, no hepatosplenomegaly Psychiatric: A+Ox3, euthymic affect Results & Data Results & Data Vital Signs (Past 12 Hours) Vital Signs Temp Pulse Resp BP Pulse Ox O2 Del Method O2 Flow Rate 07/16/23 07:35 74 20 91 Nasal Cannula 2 07/16/23 07:20 Nasal Cannula 2 07/16/23 07:18 36.6 C 80 18 105/71 94 Nasal Cannula 2 PG Care Time/CCT Total # of Minutes Spent Total Time Spent with Patient: Total time spent is greater than 50% in coordination of care (as documented) at patient's floor/unit and/or counseling patient: Coding Level of Care Code 86843 SUB INP/OBS CARE 2/35MIN Diagnoses Acute on chronic respiratory failure with hypoxia and hypercapnia J96.21; J96.22 Influenza due to identified 2008 H1N1 influenza virus with pneumonia J10.00 Acute metabolic encephalopathy G93.41 Opioid dependence F11.20 Pneumonia J18.9 Laterality: unspecified laterality Lung location: unspecified part of lung Pneumonia type: due to unspecified organism Vocal cord paralysis J38.00 Chronically elevated hemidiaphragm J98.6 Chronic obstructive pulmonary disease, unspecified COPD type J44.9 COPD type: unspecified COPD Positive blood culture R78.81 Myelopathy concurrent with and due to spinal stenosis of cervical region M48.02; G99.2 Depression F32.0 Active/Remission status: currently active Depression Type: major depressive disorder Major depression episode severity: mild Major depression recurrence: single episode Acid reflux K21.9 (5) Pneumonia Laterality: unspecified laterality Lung location: unspecified part of lung Pneumonia type: due to unspecified organism Qualified Code(s): J18.9 - Pneumonia, unspecified organism (8) COPD (chronic obstructive pulmonary disease) COPD type: unspecified COPD Qualified Code(s): J44.9 - Chronic obstructive pulmonary disease, unspecified (11) Depression Active/Remission status: currently active Depression Type: major depressive disorder Major depression episode severity: mild Major depression recurrence: single episode Qualified Code(s): F32.0 - Major depressive disorder, single episode, mild
[2023-07-16] MEDS: MIRTAZAPINE TAB 15 MG TAB PO SCH (20:30)
[2023-07-16] MEDS: SENNA 8.6 MG TAB PO SCH (20:30)
[2023-07-16] MEDS: ENOXAPARIN INJ 40 MG/0.4 ML SYR SQ SCH (20:30)
[2023-07-16] MEDS: ATORVASTATIN 10 MG TAB PO SCH (20:31)
[2023-07-17] MEDS: oxyCODONE HCL IR 5 MG TAB (IMMEDIATE RELEASE) PO PRN ×6 (01:04→22:17)
[2023-07-17 07:16] LABS: Basophils # (auto) 0.03 K/uL (0.00-0.20); Basophils % (auto) 0.6 %; Eosinophils # (auto) 0.11 K/uL (0.00-0.50); Eosinophils % (auto) 2.1 %; Hematocrit (blood only) 33.6 % (42.0-52.0); Hemoglobin 11.3 g/dl (14.0-18.0); Immature Granulocytes # (auto) 0.03 K/uL (0.01-0.20); Immature Granulocytes % (auto) 0.6 %; Lymphocytes # (auto) 1.36 K/uL (1.20-3.40); Lymphocytes % (auto) 25.8 %; Mean Corpuscular Hemoglobin 31.6 pg (25.0-34.0); Mean Corpuscular Hgb Conc 33.6 g/dL (32.0-36.0); Mean Corpuscular Volume 93.9 fL (80.0-100.0); Mean Platelet Volume 10.1 fL (9.4-12.4); Monocytes # (auto) 0.39 K/uL (0.11-0.59); Monocytes % (auto) 7.4 %; Neutrophils # (auto) 3.36 K/uL (1.40-6.50); Neutrophils % (auto) 63.5 %; Platelet Count 231 K/uL (130-400); RDW Coefficient of Variation 13.2 % (11.5-14.5); RDW Standard Deviation 44.8 fL (36.4-46.3); Red Blood Count 3.58 M/uL (4.70-6.10); White Blood Count 5.28 K/ul (4.8-10.8)
[2023-07-17] MEDS: SODIUM CHLOR 7% 4 ML NEB NEB SCH ×2 (07:20→19:45)
[2023-07-17] MEDS: ALBUT/IPRATROP 3MG/0.5MG NEB 3 ML VIAL NEB SCH ×2 (07:20→19:45)
[2023-07-17 07:36] LABS: BUN Creatinine Ratio 31.4 (10-20); Calcium 9.1 mg/dl (8.6-10.3); Creatinine Clr Calc Pharmacy 94.4 ml/min; Est GFR (African American) 112.4 ml/min; Magnesium 2.1 mg/dl (1.7-2.4)
[2023-07-17] MEDS: POLYETHYLENE (MIRALAX) 17 GM PACK PO SCH (08:03)
[2023-07-17] MEDS: THIAMINE HCL 100 MG TAB PO SCH (08:07)
[2023-07-17] MEDS: CEROVITE ADV FORMULA TAB PO SCH (08:07)
[2023-07-17] MEDS: busPIRone 15 MG TAB PO SCH ×2 (08:07→20:15)
[2023-07-17] MEDS: buPROPion XL 150 MG TABCR PO SCH (08:07)
[2023-07-17] MEDS: METHADONE HCL 5 MG TAB PO SCH ×2 (08:07→20:13)
[2023-07-17] MEDS: PANTOprazole 40 MG TAB PO SCH (08:08)
[2023-07-17] MEDS: GABAPENTIN 300 MG CAP PO SCH ×3 (08:08→20:15)
[2023-07-17] MEDS: CALCIUM 600MG + VIT D 400 IU TAB PO SCH ×2 (08:08→20:14)
[2023-07-17] MEDS ORDERED: MAGNESIUM HYDROXIDE SUSP 30 ML UDC PO ONE (16:32)
--- NOTE | 2023-07-17 16:54 | Hospitalist Progress Note ---
Date of Service July 17, 2023 Assessment & Plan (1) Acute on chronic respiratory failure with hypoxia and hypercapnia: Plan: Acute component 2nd to flu A infection, b/l pneumonia left (severe) > right, left lung mucous plugging, COPD with exacerbation, pulmonary edema. These issues were treated and are now resolved. Chronic component - COPD, left-sided hemidiaphragm elevation, vocal cord paralysis leading to difficulty protecting airway/managing secretions Had bronchoscopy 07/01 notable for mucus plugging on L WORSE on 07/05/23 - CXR at that time with DEANNA again opacified. Previous collapse of DAENNA was due to mucous plugging s/p elective intubation and [facility] ventilation AM 07/06, bronchoscopy by Dr Moore showing the following - "The right mainstem, right upper lobe, right middle lobe, and right lower lobe were all widely patent with thin secretions present. The mucosa appeared normal. The left mainstem bronchus was widely patent. The left upper lobe and lingula takeoff were patent but demonstrated dynamic collapse with respiration. The left lower lobe bronchi was significantly collapsed." Antibiotics stopped per ICU team, since no evidence of ongoing pneumonia 07/07 failed SBT but passed AM of 07/09 and was extubated. Prior to that on 07/09 had bronchoscopy with findings of thin secretions and no mucus plugging. With fever midmorning 07/10, resolved Pulmonary recommended nocturnal Bipap - refused Bipap pm of 07/09, 07/10, 07/11 - discontinued order Currently minimal O2 requirement --> he likes to have his O2 at 2LNC but then he retains CO2-discussed with patient and he is agreeable to keeping O2 at 0.5L Continue guaifenesin and hypertonic saline neb but reduced to twice daily Overall MUCH improved (2) Influenza due to identified 2009 H1N1 influenza virus with pneumonia: Plan: fluA infection with sepsis, POA and pneumonia tamiflu 75mg BID x 5 days , antibiotics- course completed (3) Opioid dependence: Plan: typically on oxycodone 15mg q4h prn and gabapentin 900 Mg 3 times daily as outpatient for chronic back/neck pain Because of the concern that the opioids and gabapentin contributed to his respiratory failure and encephalopathy, these medications were significantly reduced this hospitalization He then had significant return of his neuropathy and severe back pain and is asking for an increase in pain medication -Increase methadone to 5 Mg p.o. twice daily and titrate up as needed after discharge, continue to use oxycodone 5 Mg as needed for breakthrough pain which is a significant reduction from his home dose -Increased gabapentin to 300 Mg p.o. 3 times daily (home dose was 900mg po tid) -Pain now improved -continue to monitor for improvement in pain and for any adverse side effects -ECG shows normal QTc on 07/16 (checked for methadone use) (4) Constipation: Plan: secondary to opioid use continue Miralax daily give bisacodyl [place] x 1 today add docusate and continue senna (5) Pneumonia: Plan: DEANNA/LLL, extensive, severe, bacterial superinfection in the setting of fluA infection completed 7 days of cefepime then zosyn, also completed 6 days of atypical coverage with doxy 100mg BID s/p bronch 07/01/[address] Capps - large mucous plugging found in the left bronchial tree; plugs removed all bronch cultures negative to date -except Magalie albicans which is likely colonizer PJP, histo, blasto, and cocci studies that were sent to [facility] lab returned negative s/p bronch 07/[address] Moore without evidence of mucus plugging or ongoing secretions suggestive of pneumonia - antibiotics stopped at that point bronch 07/[address] Moore again with only thin secretions resolved continue monitoring off ABX (6) Acute metabolic encephalopathy: Plan: multifactorial - influenza infection, left-sided pneumonia, hypercapnia, hypoxia, meds for sedation for bronch while in ICU, reduced gabapentin to 100 mg tid but now increasing as below for worsening chronic pain opioids reduced from home dose mental status normal (7) Vocal cord paralysis: Plan: history of such per records-reason for vocal cord paralysis is likely his cervical myelopathy or prior cspine surgery big risk factor for aspiration events as he cannot protect his airway voice is not hoarse currently (8) Chronically elevated hemidiaphragm: Plan: left-side, etiology uncertain, present for [facility] as well as thoracic surgery at [place] three years ago - not amenable to surgical intervention and too weak to tolerate at this time. Contributes to recurrent DEANNA collapse and mucus plugging. (9) COPD (chronic obstructive pulmonary disease): Plan: with exacerbation treated with solumedrol earlier in hospital course. prior to admission was on prednisone 5 mg qod for chronic pain? steroids discontinued at risk for secondary adrenal insufficiency - monitor, if hypotensive consider stress dose steroids (10) Positive blood culture: Plan: coag neg staph, 2/8 bottles, and alpha strep 1/8 bottles. likely contaminants (11) Myelopathy concurrent with and due to spinal stenosis of cervical region: Plan: severe 04/2020 - extensive c-spine surgery by Dr Álvarez outpatient pulmonary note from 2020 suggests that some of his vocal cord paralysis +/- hemidiaphragm elevation could be from prior surgery vs the c-spine disease itself (12) Depression: Plan: cont mirtazapine and buspar (13) Acid reflux: Plan: takes pepcid daily at home was having frequent reflux symptoms this entire stay before intubation continue acid suppression with PPI and dc pepcid CT chest showed esophageal wall thickening which is suggestive of esophagitis Follow-up as an outpatient with GI Plan DVT prophylaxis-Lovenox SQ Disposition-continued stay but medically stable for discharge to rehab-awaiting placement likely on Thursday with son to transport Goals of care - Family meeting at bedside 07/[address] Moore, Dr Parikh from palliative care team, previous hospitalist, and Mr. Fleming's son and daughter in law. Mr. Kendall recinos has stated in past he did not want trach, correction mechanical ventilation, SNF. Trial of bipap is reasonable if he can tolerate it (which he has tolerated poorly in the past), if he were to be reintubated would require trach for hope of improvement, which he had stated in the past he did not want. Patient then told me on 07/15 that he definitely would not ever want to be intubated again, but is okay with chest compressions, defibrillation, and ACLS medications and a conditional CODE STATUS. Admission and Anticipated Discharge Date Admission Date: June 29, 2023 Subjective Pt still without BM x 6 days. Questions if his O2 should be turned up but reassured him not needed as his POx is 93% o 0.5LNC Pain is modestly controlled but he thinks it could be better. Will increase methadone Physical Exam Constitutional: WD/WN, vitals as above Respiratory: normal respiratory effort; no cough Auscultation: + diminished lung sounds (Throughout); no crackles, no rhonchi and no wheezes Cardiovascular: RRR, no murmur, no edema Gastrointestinal (Abdomen): normal bowel sounds, soft, nontender, no hepatosplenomegaly Psychiatric: A+Ox3, euthymic affect Results & Data Results & Data Vital Signs (Past 12 Hours) Vital Signs Temp Pulse Resp BP BP Pulse Ox O2 Del Method 07/17/23 15:59 36.5 C 70 18 116/74 95 Room Air 07/17/23 07:20 Nasal Cannula 07/17/23 07:20 20 95 Nasal Cannula 07/17/23 07:19 36.7 C 80 16 101/67 96 Nasal Cannula O2 Flow Rate 07/17/23 15:59 07/17/23 07:20 0.5 07/17/23 07:20 0.5 07/17/23 07:19 0.5 Laboratory Results BMP, CBC, magnesium reviewed PG Care Time/CCT Total # of Minutes Spent Total Time Spent with Patient: Total time spent is greater than 50% in coordination of care (as documented) at patient's floor/unit and/or counseling patient: Coding Level of Care Code 42195 SUB INP/OBS CARE 2/35MIN Diagnoses Acute on chronic respiratory failure with hypoxia and hypercapnia J96.21; J96.22 Influenza due to identified 2009 H1N1 influenza virus with pneumonia J10.00 Opioid dependence F11.20 Drug-induced constipation K59.03 Constipation type: drug induced constipation Pneumonia J18.9 Laterality: unspecified laterality Lung location: unspecified part of lung Pneumonia type: due to unspecified organism Acute metabolic encephalopathy G93.41 Vocal cord paralysis J38.00 Chronically elevated hemidiaphragm J98.6 Chronic obstructive pulmonary disease, unspecified COPD type J44.9 COPD type: unspecified COPD Positive blood culture R78.81 Myelopathy concurrent with and due to spinal stenosis of cervical region M48.02; G99.2 Depression F32.0 Active/Remission status: currently active Depression Type: major depressive disorder Major depression episode severity: mild Major depression recurrence: single episode Acid reflux K21.9 (4) Constipation Constipation type: drug induced constipation Qualified Code(s): K59.03 - Drug induced constipation (5) Pneumonia Laterality: unspecified laterality Lung location: unspecified part of lung Pneumonia type: due to unspecified organism Qualified Code(s): J18.9 - Pneumonia, unspecified organism (9) COPD (chronic obstructive pulmonary disease) COPD type: unspecified COPD Qualified Code(s): J44.9 - Chronic obstructive pulmonary disease, unspecified (12) Depression Active/Remission status: currently active Depression Type: major depressive disorder Major depression episode severity: mild Major depression recurrence: single episode Qualified Code(s): F32.0 - Major depressive disorder, single episode, mild
[2023-07-17] MEDS: ENOXAPARIN INJ 40 MG/0.4 ML SYR SQ SCH (20:14)
[2023-07-17] MEDS: MIRTAZAPINE TAB 15 MG TAB PO SCH (20:14)
[2023-07-17] MEDS: DOCUSATE SODIUM 100 MG CAP PO SCH (20:15)
[2023-07-17] MEDS: ATORVASTATIN 10 MG TAB PO SCH (20:15)
[2023-07-17] MEDS: SENNA 8.6 MG TAB PO SCH (20:15)
--- NOTE | 2023-07-17 23:05 | Electrocardiogram Report ---
Test Reason : Blood Pressure : / mmHG Vent. Rate : 091 BPM Atrial Rate : 091 BPM P-R Int : 134 ms QRS Dur : 080 ms QT Int : 316 ms P-R-T Axes : 060 012 070 degrees QTc Int : 388 ms Normal sinus rhythm Increased R/S ratio in V1, consider early transition or posterior infarct Abnormal ECG When compared with ECG of 30-JUN-2023 13:30, No significant change was found Confirmed by Farhan Alejandro ([id number]) on 07/17/2023 11:05:06 PM Referred By: REFERRED SELF Confirmed By:Farhan Alejandro
[2023-07-18] MEDS: oxyCODONE HCL IR 5 MG TAB (IMMEDIATE RELEASE) PO PRN ×6 (02:22→22:56)
[2023-07-18] MEDS: SODIUM CHLOR 7% 4 ML NEB NEB SCH ×2 (07:21→19:17)
[2023-07-18] MEDS: ALBUT/IPRATROP 3MG/0.5MG NEB 3 ML VIAL NEB SCH ×2 (07:21→19:17)
[2023-07-18] MEDS: DOCUSATE SODIUM 100 MG CAP PO SCH ×2 (08:14→20:09)
[2023-07-18] MEDS: busPIRone 15 MG TAB PO SCH ×2 (08:15→20:07)
[2023-07-18] MEDS: GABAPENTIN 300 MG CAP PO SCH ×3 (08:15→20:08)
[2023-07-18] MEDS: CALCIUM 600MG + VIT D 400 IU TAB PO SCH ×2 (08:15→20:07)
[2023-07-18] MEDS: PANTOprazole 40 MG TAB PO SCH (08:16)
[2023-07-18] MEDS: POLYETHYLENE (MIRALAX) 17 GM PACK PO SCH (08:16)
[2023-07-18] MEDS: buPROPion XL 150 MG TABCR PO SCH (08:16)
[2023-07-18] MEDS: THIAMINE HCL 100 MG TAB PO SCH (08:16)
[2023-07-18] MEDS: CEROVITE ADV FORMULA TAB PO SCH (08:16)
[2023-07-18] MEDS: ACETAMINOPHEN 325 MG TAB PO PRN ×2 (08:22→14:43)
[2023-07-18] MEDS: METHADONE HCL 5 MG TAB PO SCH ×2 (08:23→20:06)
--- NOTE | 2023-07-18 15:30 | Hospitalist Progress Note ---
Date of Service July 18, 2023 Assessment & Plan (1) Acute on chronic respiratory failure with hypoxia and hypercapnia: Plan: Acute component 2nd to flu A infection, b/l pneumonia left (severe) > right, left lung mucous plugging, COPD with exacerbation, pulmonary edema. These issues were treated and are now resolved. Chronic component - COPD, left-sided hemidiaphragm elevation, vocal cord paralysis leading to difficulty protecting airway/managing secretions Had bronchoscopy 07/01 notable for mucus plugging on L WORSE on 07/05/23 - CXR at that time with DEANNA again opacified. Previous collapse of DEANNA was due to mucous plugging s/p elective intubation and [facility] ventilation AM 07/06, bronchoscopy by Dr Moore showing the following - "The right mainstem, right upper lobe, right middle lobe, and right lower lobe were all widely patent with thin secretions present. The mucosa appeared normal. The left mainstem bronchus was widely patent. The left upper lobe and lingula takeoff were patent but demonstrated dynamic collapse with respiration. The left lower lobe bronchi was significantly collapsed." Antibiotics stopped per ICU team, since no evidence of ongoing pneumonia 07/07 failed SBT but passed AM of 07/09 and was extubated. Prior to that on 07/09 had bronchoscopy with findings of thin secretions and no mucus plugging. With fever midmorning 07/10, resolved Pulmonary recommended nocturnal Bipap - refused Bipap pm of 07/09, 07/10, 07/11 - discontinued order Currently minimal O2 requirement --> he likes to have his O2 at 2LNC but then he retains CO2-discussed with patient and he is agreeable to keeping O2 at 0.5L Continue guaifenesin and hypertonic saline neb but reduced to twice daily Overall MUCH improved (2) Influenza due to identified 2009 H1N1 influenza virus with pneumonia: Plan: fluA infection with sepsis, POA and pneumonia tamiflu 75mg BID x 5 days , antibiotics- course completed (3) Opioid dependence: Plan: typically on oxycodone 15mg q4h prn and gabapentin 900 Mg 3 times daily as outpatient for chronic back/neck pain Because of the concern that the opioids and gabapentin contributed to his respiratory failure and encephalopathy, these medications were significantly reduced this hospitalization He then had significant return of his neuropathy and severe back pain and is asking for an increase in pain medication -Increase methadone to 5 Mg p.o. twice daily and titrate up as needed after discharge, continue to use oxycodone 5 Mg as needed for breakthrough pain which is a significant reduction from his home dose -Increased gabapentin to 300 Mg p.o. 3 times daily (home dose was 900mg po tid) -Pain now improved -continue to monitor for improvement in pain and for any adverse side effects -ECG shows normal QTc on 07/16 (checked for methadone use) (4) Constipation: Plan: secondary to opioid use continue Miralax daily give bisacodyl [place] x 1 today add docusate and continue senna (5) Pneumonia: Plan: DEANNA/LLL, extensive, severe, bacterial superinfection in the setting of fluA infection completed 7 days of cefepime then zosyn, also completed 6 days of atypical coverage with doxy 100mg BID s/p bronch 07/01/[address] Capps - large mucous plugging found in the left bronchial tree; plugs removed all bronch cultures negative to date -except Magalie albicans which is likely colonizer PJP, histo, blasto, and cocci studies that were sent to [facility] lab returned negative s/p bronch 07/[address] Moore without evidence of mucus plugging or ongoing secretions suggestive of pneumonia - antibiotics stopped at that point bronch 07/[address] Moore again with only thin secretions resolved continue monitoring off ABX (6) Acute metabolic encephalopathy: Plan: multifactorial - influenza infection, left-sided pneumonia, hypercapnia, hypoxia, meds for sedation for bronch while in ICU, reduced gabapentin to 100 mg tid but now increasing as below for worsening chronic pain opioids reduced from home dose mental status normal (7) Vocal cord paralysis: Plan: history of such per records-reason for vocal cord paralysis is likely his cervical myelopathy or prior cspine surgery big risk factor for aspiration events as he cannot protect his airway voice is not hoarse currently (8) Chronically elevated hemidiaphragm: Plan: left-side, etiology uncertain, present for several years [facility] as well as thoracic surgery at [place] three years ago - not amenable to surgical intervention and too weak to tolerate at this time. Contributes to recurrent DEANNA collapse and mucus plugging. (9) COPD (chronic obstructive pulmonary disease): Plan: with exacerbation treated with solumedrol earlier in hospital course. prior to admission was on prednisone 5 mg qod for chronic pain? steroids discontinued at risk for secondary adrenal insufficiency - monitor, if hypotensive consider stress dose steroids (10) Positive blood culture: Plan: coag neg staph, 2/8 bottles, and alpha strep 1/8 bottles. likely contaminants (11) Myelopathy concurrent with and due to spinal stenosis of cervical region: Plan: severe 04/2020 - extensive c-spine surgery by Dr Álvarez outpatient pulmonary note from 2020 suggests that some of his vocal cord paralysis +/- hemidiaphragm elevation could be from prior surgery vs the c-spine disease itself (12) Depression: Plan: cont mirtazapine and buspar (13) Acid reflux: Plan: takes pepcid daily at home was having frequent reflux symptoms this entire stay before intubation continue acid suppression with PPI and dc pepcid CT chest showed esophageal wall thickening which is suggestive of esophagitis Follow-up as an outpatient with GI Plan DVT prophylaxis-Lovenox SQ Disposition-continued stay but medically stable for discharge to rehab-awaiting placement likely on Thursday with son to transport Goals of care - Family meeting at bedside 07/[address] Moore, Dr Parikh from palliative care team, previous hospitalist, and Mr. Fleming's son and daughter in law. Mr. Kendall recinos has stated in past he did not want trach, retirement mechanical ventilation, SNF. Trial of bipap is reasonable if he can tolerate it (which he has tolerated poorly in the past), if he were to be reintubated would require trach for hope of improvement, which he had stated in the past he did not want. Patient then told me on 07/15 that he definitely would not ever want to be intubated again, but is okay with chest compressions, defibrillation, and ACLS medications and a conditional CODE STATUS. Admission and Anticipated Discharge Date Admission Date: June 29, 2023 Subjective Patient feels well today. Denies chest pain or shortness of breath. Says that his chronic pain is under control. Review of Systems Review of Systems: All systems reviewed & are unremarkable except as noted in Subjective Physical Exam Physical Exam: General: Awake, conversant Heart: S1, S2/regular rate and rhythm, no murmur rubs or gallops Lungs: Clear to auscultation bilaterally. Normal effort Abdomen: Soft/nontender/nondistended. No hepatosplenomegaly Extremities: No clubbing/cyanosis. No edema Behavior: Appropriate, cooperative Results & Data Results & Data Vital Signs (Past 12 Hours) Vital Signs Temp Pulse Resp BP BP Pulse Ox O2 Del Method 07/18/23 14:43 36.6 C 92 H 17 113/79 92 Room Air 07/18/23 08:00 Nasal Cannula 07/18/23 07:25 36.5 C 79 17 97/67 L 07/18/23 07:21 88 18 84 L Room Air O2 Flow Rate 07/18/23 14:43 07/18/23 08:00 0.5 07/18/23 07:25 07/18/23 07:21 PG Care Time/CCT Total # of Minutes Spent Total Time Spent with Patient: Total time spent is greater than 50% in coordination of care (as documented) at patient's floor/unit and/or counseling patient: Coding Level of Care Code 24433 SUB INP/OBS CARE 2/35MIN Diagnoses Acute on chronic respiratory failure with hypoxia and hypercapnia J96.21; J96.22 Influenza due to identified 2008 H1N1 influenza virus with pneumonia J10.00 Opioid dependence F11.20 Drug-induced constipation K59.03 Constipation type: drug induced constipation Pneumonia J18.9 Laterality: unspecified laterality Lung location: unspecified part of lung Pneumonia type: due to unspecified organism Acute metabolic encephalopathy G93.41 Vocal cord paralysis J38.00 Chronically elevated hemidiaphragm J98.6 Chronic obstructive pulmonary disease, unspecified COPD type J44.9 COPD type: unspecified COPD Positive blood culture R78.81 Myelopathy concurrent with and due to spinal stenosis of cervical region M48.02; G99.2 Depression F32.0 Active/Remission status: currently active Depression Type: major depressive disorder Major depression episode severity: mild Major depression recurrence: single episode Acid reflux K21.9 (4) Constipation Constipation type: drug induced constipation Qualified Code(s): K59.03 - Drug induced constipation (5) Pneumonia Laterality: unspecified laterality Lung location: unspecified part of lung Pneumonia type: due to unspecified organism Qualified Code(s): J18.9 - Pneumonia, unspecified organism (9) COPD (chronic obstructive pulmonary disease) COPD type: unspecified COPD Qualified Code(s): J44.9 - Chronic obstructive pulmonary disease, unspecified (12) Depression Active/Remission status: currently active Depression Type: major depressive disorder Major depression episode severity: mild Major depression recurrence: single episode Qualified Code(s): F32.0 - Major depressive disorder, single episode, mild
[2023-07-18] MEDS ORDERED: ONDANSETRON 4 MG OD TAB PO ONE (17:22)
[2023-07-18] MEDS: MIRTAZAPINE TAB 15 MG TAB PO SCH (20:07)
[2023-07-18] MEDS: ATORVASTATIN 10 MG TAB PO SCH (20:07)
[2023-07-18] MEDS: ENOXAPARIN INJ 40 MG/0.4 ML SYR SQ SCH (20:07)
[2023-07-18] MEDS: SENNA 8.6 MG TAB PO SCH (20:09)
[2023-07-19] MEDS: oxyCODONE HCL IR 5 MG TAB (IMMEDIATE RELEASE) PO PRN ×3 (02:56→12:03)
[2023-07-19] MEDS: ALBUT/IPRATROP 3MG/0.5MG NEB 3 ML VIAL NEB SCH ×2 (07:07→20:11)
[2023-07-19] MEDS: SODIUM CHLOR 7% 4 ML NEB NEB SCH ×2 (07:07→20:11)
[2023-07-19] MEDS: ACETAMINOPHEN 325 MG TAB PO PRN ×3 (07:31→16:01)
[2023-07-19] MEDS: GABAPENTIN 300 MG CAP PO SCH ×3 (07:33→20:43)
[2023-07-19] MEDS: THIAMINE HCL 100 MG TAB PO SCH (07:33)
[2023-07-19] MEDS: busPIRone 15 MG TAB PO SCH ×2 (07:33→20:43)
[2023-07-19] MEDS: CEROVITE ADV FORMULA TAB PO SCH (07:34)
[2023-07-19] MEDS: PANTOprazole 40 MG TAB PO SCH (07:34)
[2023-07-19] MEDS: buPROPion XL 150 MG TABCR PO SCH (07:34)
[2023-07-19] MEDS: DOCUSATE SODIUM 100 MG CAP PO SCH ×2 (07:34→20:43)
[2023-07-19] MEDS: CALCIUM 600MG + VIT D 400 IU TAB PO SCH ×2 (07:34→20:43)
[2023-07-19] MEDS: POLYETHYLENE (MIRALAX) 17 GM PACK PO SCH (07:35)
[2023-07-19] MEDS: METHADONE HCL 5 MG TAB PO SCH ×2 (07:38→20:43)
--- NOTE | 2023-07-19 13:52 | Hospitalist Progress Note ---
Date of Service July 19, 2023 Assessment & Plan (1) Acute on chronic respiratory failure with hypoxia and hypercapnia: Plan: Acute component 2nd to flu A infection, b/l pneumonia left (severe) > right, left lung mucous plugging, COPD with exacerbation, pulmonary edema. These issues were treated and are now resolved. Chronic component - COPD, left-sided hemidiaphragm elevation, vocal cord paralysis leading to difficulty protecting airway/managing secretions Had bronchoscopy 07/01 notable for mucus plugging on L WORSE on 07/05/23 - CXR at that time with DEANNA again opacified. Previous collapse of DEANNA was due to mucous plugging s/p elective intubation and [facility] ventilation AM 07/06, bronchoscopy by Dr Moore showing the following - "The right mainstem, right upper lobe, right middle lobe, and right lower lobe were all widely patent with thin secretions present. The mucosa appeared normal. The left mainstem bronchus was widely patent. The left upper lobe and lingula takeoff were patent but demonstrated dynamic collapse with respiration. The left lower lobe bronchi was significantly collapsed." Antibiotics stopped per ICU team, since no evidence of ongoing pneumonia 07/07 failed SBT but passed AM of 07/09 and was extubated. Prior to that on 07/09 had bronchoscopy with findings of thin secretions and no mucus plugging. With fever midmorning 07/10, resolved Pulmonary recommended nocturnal Bipap - refused Bipap pm of 07/09, 07/10, 07/11 - discontinued order Currently minimal O2 requirement --> he likes to have his O2 at 2LNC but then he retains CO2-discussed with patient and he is agreeable to keeping O2 at 0.5L Continue guaifenesin and hypertonic saline neb but reduced to twice daily Overall MUCH improved (2) Influenza due to identified 2009 H1N1 influenza virus with pneumonia: Plan: fluA infection with sepsis, POA and pneumonia tamiflu 75mg BID x 5 days , antibiotics- course completed (3) Opioid dependence: Plan: typically on oxycodone 15mg q4h prn and gabapentin 900 Mg 3 times daily as outpatient for chronic back/neck pain Because of the concern that the opioids and gabapentin contributed to his respiratory failure and encephalopathy, these medications were significantly reduced this hospitalization He then had significant return of his neuropathy and severe back pain and is asking for an increase in pain medication -Increase methadone to 5 Mg p.o. twice daily and titrate up as needed after discharge, continue to use oxycodone 5 Mg as needed for breakthrough pain which is a significant reduction from his home dose -Increased gabapentin to 300 Mg p.o. 3 times daily (home dose was 900mg po tid) -Pain now improved -continue to monitor for improvement in pain and for any adverse side effects -ECG shows normal QTc on 07/16 (checked for methadone use) Discontinue Zofran due to interaction with methadone (4) Constipation: Plan: secondary to opioid use continue Miralax daily give bisacodyl [place] x 1 today add docusate and continue senna Patient says that he has been having bowel movements lately (5) Pneumonia: Plan: DEANNA/LLL, extensive, severe, bacterial superinfection in the setting of fluA infection completed 7 days of cefepime then zosyn, also completed 6 days of atypical coverage with doxy 100mg BID s/p bronch 07/01/[address] Capps - large mucous plugging found in the left bronchial tree; plugs removed all bronch cultures negative to date -except Magalie albicans which is likely colonizer PJP, histo, blasto, and cocci studies that were sent to [facility] lab returned negative s/p bronch 07/[address] Moore without evidence of mucus plugging or ongoing secretions suggestive of pneumonia - antibiotics stopped at that point bronch 07/[address] Moore again with only thin secretions resolved continue monitoring off ABX (6) Acute metabolic encephalopathy: Plan: multifactorial - influenza infection, left-sided pneumonia, hypercapnia, hypoxia, meds for sedation for bronch while in ICU, reduced gabapentin to 100 mg tid but now increasing as below for worsening chronic pain opioids reduced from home dose mental status normal (7) Vocal cord paralysis: Plan: history of such per records-reason for vocal cord paralysis is likely his cervical myelopathy or prior cspine surgery big risk factor for aspiration events as he cannot protect his airway voice is not hoarse currently (8) Chronically elevated hemidiaphragm: Plan: left-side, etiology uncertain, present for several years has seen [facility] [place] for this as outpatient as well as thoracic surgery at [facility] three years ago - not amenable to surgical intervention and too weak to tolerate at this time. Contributes to recurrent DEANNA collapse and mucus plugging. (9) COPD (chronic obstructive pulmonary disease): Plan: with exacerbation treated with solumedrol earlier in hospital course. prior to admission was on prednisone 5 mg qod for chronic pain? steroids discontinued at risk for secondary adrenal insufficiency - monitor, if hypotensive consider stress dose steroids (10) Positive blood culture: Plan: coag neg staph, 2/8 bottles, and alpha strep 1/8 bottles. likely contaminants (11) Myelopathy concurrent with and due to spinal stenosis of cervical region: Plan: severe 04/2020 - extensive c-spine surgery by Dr Álvarez outpatient pulmonary note from 2020 suggests that some of his vocal cord paralysis +/- hemidiaphragm elevation could be from prior surgery vs the c-spine disease itself (12) Depression: Plan: cont mirtazapine and buspar (13) Acid reflux: Plan: takes pepcid daily at home was having frequent reflux symptoms this entire stay before intubation continue acid suppression with PPI and dc pepcid CT chest showed esophageal wall thickening which is suggestive of esophagitis Follow-up as an outpatient with GI Plan DVT prophylaxis-Lovenox SQ Disposition-continued stay but medically stable for discharge to rehab-awaiting placement likely on Thursday with son to transport Goals of care - Family meeting at bedside 07/[address] Moore, Dr Parikh from palliative care team, previous hospitalist, and Mr. Fleming's son and daughter in law. Mr. Fleming has stated in past he did not want trach, correction mechanical ventilation, SNF. Trial of bipap is reasonable if he can tolerate it (which he has tolerated poorly in the past), if he were to be reintubated would require trach for hope of improvement, which he had stated in the past he did not want. Patient then told me on 07/15 that he definitely would not ever want to be intubated again, but is okay with chest compressions, defibrillation, and ACLS medications and a conditional CODE STATUS. Admission and Anticipated Discharge Date Admission Date: June 29, 2023 Subjective Patient feels well. Denies chest pain or shortness of breath. Says that his pain is well-controlled on this regimen. Review of Systems Review of Systems: All systems reviewed & are unremarkable except as noted in Subjective Physical Exam Physical Exam: General: Awake, conversant Heart: S1, S2/regular rate and rhythm, no murmur rubs or gallops Lungs: Clear to auscultation bilaterally. Normal effort Abdomen: Soft/nontender/nondistended. No hepatosplenomegaly Extremities: No clubbing/cyanosis. No edema Behavior: Appropriate, cooperative Results & Data Results & Data Vital Signs (Past 12 Hours) Vital Signs Temp Pulse Resp BP Pulse Ox O2 Del Method O2 Flow Rate 07/19/23 07:15 36.5 C 90 17 117/62 07/19/23 07:07 94 H 16 95 Nasal Cannula 1 07/19/23 07:00 Nasal Cannula 0.5 PG Care Time/CCT Total # of Minutes Spent Total Time Spent with Patient: Total time spent is greater than 50% in coordination of care (as documented) at patient's floor/unit and/or counseling patient: Coding Level of Care Code 47382 SUB INP/OBS CARE 2/35MIN Diagnoses Acute on chronic respiratory failure with hypoxia and hypercapnia J96.21; J96.22 Influenza due to identified 2008 H1N1 influenza virus with pneumonia J10.00 Opioid dependence F11.20 Drug-induced constipation K59.03 Constipation type: drug induced constipation Pneumonia J18.9 Laterality: unspecified laterality Lung location: unspecified part of lung Pneumonia type: due to unspecified organism Acute metabolic encephalopathy G93.41 Vocal cord paralysis J38.00 Chronically elevated hemidiaphragm J98.6 Chronic obstructive pulmonary disease, unspecified COPD type J44.9 COPD type: unspecified COPD Positive blood culture R78.81 Myelopathy concurrent with and due to spinal stenosis of cervical region M48.02; G99.2 Depression F32.0 Active/Remission status: currently active Depression Type: major depressive disorder Major depression episode severity: mild Major depression recurrence: single episode Acid reflux K21.9 (4) Constipation Constipation type: drug induced constipation Qualified Code(s): K59.03 - Drug induced constipation (5) Pneumonia Laterality: unspecified laterality Lung location: unspecified part of lung Pneumonia type: due to unspecified organism Qualified Code(s): J18.9 - Pneumonia, unspecified organism (9) COPD (chronic obstructive pulmonary disease) COPD type: unspecified COPD Qualified Code(s): J44.9 - Chronic obstructive pulmonary disease, unspecified (12) Depression Active/Remission status: currently active Depression Type: major depressive disorder Major depression episode severity: mild Major depression recurrence: single episode Qualified Code(s): F32.0 - Major depressive disorder, single episode, mild
[2023-07-19] MEDS: ATORVASTATIN 10 MG TAB PO SCH (20:43)
[2023-07-19] MEDS: SENNA 8.6 MG TAB PO SCH (20:43)
[2023-07-19] MEDS: MIRTAZAPINE TAB 15 MG TAB PO SCH (20:43)
[2023-07-19] MEDS: ENOXAPARIN INJ 40 MG/0.4 ML SYR SQ SCH (20:44)
[2023-07-20] MEDS: ACETAMINOPHEN 325 MG TAB PO PRN (04:15)
[2023-07-20] MEDS: oxyCODONE HCL IR 5 MG TAB (IMMEDIATE RELEASE) PO PRN ×5 (04:15→20:15)
[2023-07-20] MEDS: SODIUM CHLOR 7% 4 ML NEB NEB SCH ×2 (07:09→19:30)
[2023-07-20] MEDS: ALBUT/IPRATROP 3MG/0.5MG NEB 3 ML VIAL NEB SCH ×2 (07:09→19:30)
[2023-07-20] MEDS: GABAPENTIN 300 MG CAP PO SCH ×3 (08:01→19:24)
[2023-07-20] MEDS: METHADONE HCL 5 MG TAB PO SCH ×2 (08:01→19:26)
[2023-07-20] MEDS: CEROVITE ADV FORMULA TAB PO SCH (08:01)
[2023-07-20] MEDS: busPIRone 15 MG TAB PO SCH ×2 (08:02→19:24)
[2023-07-20] MEDS: CALCIUM 600MG + VIT D 400 IU TAB PO SCH ×2 (08:02→19:25)
[2023-07-20] MEDS: THIAMINE HCL 100 MG TAB PO SCH (08:02)
[2023-07-20] MEDS: PANTOprazole 40 MG TAB PO SCH (08:02)
[2023-07-20] MEDS: POLYETHYLENE (MIRALAX) 17 GM PACK PO SCH (08:02)
[2023-07-20] MEDS: buPROPion XL 150 MG TABCR PO SCH (08:02)
[2023-07-20] MEDS: DOCUSATE SODIUM 100 MG CAP PO SCH ×2 (08:03→19:23)
--- NOTE | 2023-07-20 15:10 | Hospitalist Progress Note ---
Date of Service July 20, 2023 Assessment & Plan (1) Acute on chronic respiratory failure with hypoxia and hypercapnia: Plan: Acute component 2nd to flu A infection, b/l pneumonia left (severe) > right, left lung mucous plugging, COPD with exacerbation, pulmonary edema. These issues were treated and are now resolved. Chronic component - COPD, left-sided hemidiaphragm elevation, vocal cord paralysis leading to difficulty protecting airway/managing secretions Had bronchoscopy 07/01 notable for mucus plugging on L WORSE on 07/05/23 - CXR at that time with DEANNA again opacified. Previous collapse of DEANNA was due to mucous plugging s/p elective intubation and [facility] ventilation AM 07/06, bronchoscopy by Dr Moore showing the following - "The right mainstem, right upper lobe, right middle lobe, and right lower lobe were all widely patent with thin secretions present. The mucosa appeared normal. The left mainstem bronchus was widely patent. The left upper lobe and lingula takeoff were patent but demonstrated dynamic collapse with respiration. The left lower lobe bronchi was significantly collapsed." Antibiotics stopped per ICU team, since no evidence of ongoing pneumonia 07/07 failed SBT but passed AM of 07/09 and was extubated. Prior to that on 07/09 had bronchoscopy with findings of thin secretions and no mucus plugging. With fever midmorning 07/10, resolved Pulmonary recommended nocturnal Bipap - refused Bipap pm of 07/09, 07/10, 07/11 - discontinued order Currently minimal O2 requirement --> he likes to have his O2 at 2LNC but then he retains CO2-discussed with patient and he is agreeable to keeping O2 at 0.5L Continue guaifenesin and hypertonic saline neb but reduced to twice daily Overall MUCH improved (2) Influenza due to identified 2009 H1N1 influenza virus with pneumonia: Plan: fluA infection with sepsis, POA and pneumonia tamiflu 75mg BID x 5 days , antibiotics- course completed (3) Opioid dependence: Plan: typically on oxycodone 15mg q4h prn and gabapentin 900 Mg 3 times daily as outpatient for chronic back/neck pain Because of the concern that the opioids and gabapentin contributed to his respiratory failure and encephalopathy, these medications were significantly reduced this hospitalization He then had significant return of his neuropathy and severe back pain and is asking for an increase in pain medication -Increased methadone to 5 Mg p.o. twice daily and titrate up as needed after discharge, continue to use oxycodone 5 Mg as needed for breakthrough pain which is a significant reduction from his home dose -Increased gabapentin to 300 Mg p.o. 3 times daily (home dose was 900mg po tid) -Pain now improved -continue to monitor for improvement in pain and for any adverse side effects -ECG shows normal QTc on 07/16 (checked for methadone use) Discontinue Zofran due to interaction with methadone (4) Constipation: Plan: secondary to opioid use continue Miralax daily give bisacodyl [place] x 1 today add docusate and continue senna Patient says that he has been having bowel movements lately (5) Pneumonia: Plan: DEANNA/LLL, extensive, severe, bacterial superinfection in the setting of fluA infection completed 7 days of cefepime then zosyn, also completed 6 days of atypical coverage with doxy 100mg BID s/p bronch 07/01/[address] Capps - large mucous plugging found in the left bronchial tree; plugs removed all bronch cultures negative to date -except Magalie albicans which is likely colonizer PJP, histo, blasto, and cocci studies that were sent to [facility] lab returned negative s/p bronch 07/[address] Moore without evidence of mucus plugging or ongoing secretions suggestive of pneumonia - antibiotics stopped at that point bronch 07/[address] Moore again with only thin secretions resolved continue monitoring off ABX (6) Acute metabolic encephalopathy: Plan: multifactorial - influenza infection, left-sided pneumonia, hypercapnia, hypoxia, meds for sedation for bronch while in ICU, reduced gabapentin to 100 mg tid but now increasing as below for worsening chronic pain opioids reduced from home dose mental status normal (7) Vocal cord paralysis: Plan: history of such per records-reason for vocal cord paralysis is likely his cervical myelopathy or prior cspine surgery big risk factor for aspiration events as he cannot protect his airway voice is not hoarse currently (8) Chronically elevated hemidiaphragm: Plan: left-side, etiology uncertain, present for several years has seen [facility] for this as outpatient as well as thoracic surgery at [place] three years ago - not amenable to surgical intervention and too weak to tolerate at this time. Contributes to recurrent DEANNA collapse and mucus plugging. (9) COPD (chronic obstructive pulmonary disease): Plan: with exacerbation treated with solumedrol earlier in hospital course. prior to admission was on prednisone 5 mg qod for chronic pain? steroids discontinued at risk for secondary adrenal insufficiency - monitor, if hypotensive consider stress dose steroids (10) Positive blood culture: Plan: coag neg staph, 2/8 bottles, and alpha strep 1/8 bottles. likely contaminants (11) Myelopathy concurrent with and due to spinal stenosis of cervical region: Plan: severe 04/2020 - extensive c-spine surgery by Dr Álvarez outpatient pulmonary note from 2020 suggests that some of his vocal cord paralysis +/- hemidiaphragm elevation could be from prior surgery vs the c-spine disease itself (12) Depression: Plan: cont mirtazapine and buspar (13) Acid reflux: Plan: takes pepcid daily at home was having frequent reflux symptoms this entire stay before intubation continue acid suppression with PPI and dc pepcid CT chest showed esophageal wall thickening which is suggestive of esophagitis Follow-up as an outpatient with GI Plan DVT prophylaxis-Lovenox SQ Disposition-continued stay but medically stable for discharge to rehab-awaiting placement with son to transport Goals of care - Family meeting at bedside 07/[address] Moore, Dr Parikh from palliative care team, previous hospitalist, and Mr. Fleming's son and daughter in law. Mr. Fleming has stated in past he did not want trach, [facility] mechanical ventilation, SNF. Trial of bipap is reasonable if he can tolerate it (which he has tolerated poorly in the past), if he were to be reintubated would require trach for hope of improvement, which he had stated in the past he did not want. Patient then told me on 07/15 that he definitely would not ever want to be intubated again, but is okay with chest compressions, defibrillation, and ACLS medications and a conditional CODE STATUS. Admission and Anticipated Discharge Date Admission Date: June 29, 2023 Subjective Patient feels well. Pain is under control. Denies chest pain or shortness of breath. Review of Systems Review of Systems: All systems reviewed & are unremarkable except as noted in Subjective Physical Exam Physical Exam: General: Awake, conversant Heart: S1, S2/regular rate and rhythm, no murmur rubs or gallops Lungs: Clear to auscultation bilaterally. Normal effort Abdomen: Soft/nontender/nondistended. No hepatosplenomegaly Extremities: No clubbing/cyanosis. No edema Behavior: Appropriate, cooperative Results & Data Results & Data Vital Signs (Past 12 Hours) Vital Signs Temp Pulse Resp BP Pulse Ox O2 Del Method O2 Flow Rate 07/20/23 14:54 36.6 C 86 18 128/81 95 Nasal Cannula 0.5 07/20/23 08:30 Nasal Cannula 0.5 07/20/23 07:47 36.3 C L 74 16 116/77 100 Nebulizer 07/20/23 07:09 87 18 94 Room Air PG Care Time/CCT Total # of Minutes Spent Total Time Spent with Patient: Total time spent is greater than 50% in coordination of care (as documented) at patient's floor/unit and/or counseling patient: Coding Level of Care Code 10842 SUB INP/OBS CARE 2/35MIN Diagnoses Acute on chronic respiratory failure with hypoxia and hypercapnia J96.21; J96.22 Influenza due to identified 2008 H1N1 influenza virus with pneumonia J10.00 Opioid dependence F11.20 Drug-induced constipation K59.03 Constipation type: drug induced constipation Pneumonia J18.9 Laterality: unspecified laterality Lung location: unspecified part of lung Pneumonia type: due to unspecified organism Acute metabolic encephalopathy G93.41 Vocal cord paralysis J38.00 Chronically elevated hemidiaphragm J98.6 Chronic obstructive pulmonary disease, unspecified COPD type J44.9 COPD type: unspecified COPD Positive blood culture R78.81 Myelopathy concurrent with and due to spinal stenosis of cervical region M48.02; G99.2 Depression F32.0 Active/Remission status: currently active Depression Type: major depressive disorder Major depression episode severity: mild Major depression recurrence: single episode Acid reflux K21.9 (4) Constipation Constipation type: drug induced constipation Qualified Code(s): K59.03 - Drug induced constipation (5) Pneumonia Laterality: unspecified laterality Lung location: unspecified part of lung Pneumonia type: due to unspecified organism Qualified Code(s): J18.9 - Pneumonia, unspecified organism (9) COPD (chronic obstructive pulmonary disease) COPD type: unspecified COPD Qualified Code(s): J44.9 - Chronic obstructive pulmonary disease, unspecified (12) Depression Active/Remission status: currently active Depression Type: major depressive disorder Major depression episode severity: mild Major depression recurrence: single episode Qualified Code(s): F32.0 - Major depressive disorder, single episode, mild
[2023-07-20] MEDS: SENNA 8.6 MG TAB PO SCH (19:23)
[2023-07-20] MEDS: ATORVASTATIN 10 MG TAB PO SCH (19:24)
[2023-07-20] MEDS: MIRTAZAPINE TAB 15 MG TAB PO SCH (19:24)
[2023-07-20] MEDS: ENOXAPARIN INJ 40 MG/0.4 ML SYR SQ SCH (19:25)
[2023-07-21] MEDS: oxyCODONE HCL IR 5 MG TAB (IMMEDIATE RELEASE) PO PRN ×5 (00:16→16:22)
[2023-07-21] MEDS: ACETAMINOPHEN 325 MG TAB PO PRN ×2 (02:47→09:22)
[2023-07-21] MEDS: ALBUT/IPRATROP 3MG/0.5MG NEB 3 ML VIAL NEB SCH (07:05)
[2023-07-21] MEDS: SODIUM CHLOR 7% 4 ML NEB NEB SCH (07:05)
[2023-07-21] MEDS: busPIRone 15 MG TAB PO SCH (07:30)
[2023-07-21] MEDS: METHADONE HCL 5 MG TAB PO SCH (07:30)
[2023-07-21] MEDS: CALCIUM 600MG + VIT D 400 IU TAB PO SCH (07:30)
[2023-07-21] MEDS: THIAMINE HCL 100 MG TAB PO SCH (07:30)
[2023-07-21] MEDS: DOCUSATE SODIUM 100 MG CAP PO SCH (07:31)
[2023-07-21] MEDS: CEROVITE ADV FORMULA TAB PO SCH (07:31)
[2023-07-21] MEDS: POLYETHYLENE (MIRALAX) 17 GM PACK PO SCH (07:31)
[2023-07-21] MEDS: PANTOprazole 40 MG TAB PO SCH (07:31)
[2023-07-21] MEDS: buPROPion XL 150 MG TABCR PO SCH (07:31)
[2023-07-21] MEDS: GABAPENTIN 300 MG CAP PO SCH ×2 (07:31→14:27)
--- NOTE | 2023-07-21 13:22 | Discharge Summary ---
Date of Service July 21, 2023 Admission HPI Per Admitting Provider The patient is a 67-year-old male with a past medical history including vocal cord paralysis/weakness, hypercapnic respiratory failure, COPD, CAP, hypertension, cervical spinal stenosis with myelopathy, chronic pain syndrome, opioid dependence, alcohol abuse, lumbar spine stenosis, hyperlipidemia and neuropathy. The patient is not able to contribute significantly to HPI or review of systems, and somewhat lethargic and difficult to rouse in the ED. Per EMS report, patient has had shortness of breath over the past week, and questionable left-sided weakness, which was not demonstrated on examination today. Patient did have CT head, CTA head and neck which were negative in the ED Significant laboratories: [employer] negative, haemophilus influenza H 06/2008 positive by PCR From the ED the patient received the following: Vancomycin IV, ceftriaxone IV and normal saline 1 L Admission Exam Per Admitting Provider The patient is lethargic, difficult to arouse but does open eyes respond to sternal rub, and reports that he is tired. normocephalic and atraumatic, lying in bed and in no acute distress. HEENT--PERRL, EOMI, mucous membranes and oropharynx dry. Neck--supple. No JVD. No bruits. Thyroid normal, trachea midline, no adenopathy. Heart--normal S1 and S2. No murmurs, rubs or gallops. Lungs--coarse breath sounds bilaterally, relatively decreased sounds on the left. Abdomen--normal bowel sounds and soft. Nontender. Nondistended, no hernias or masses, no organomegaly. Extremities--no cyanosis or clubbing. No edema Dermatologic--normal skin turgor, normal color, no abnormal lymph nodes, no rash. Neurologic--cranial nerves II through XII grossly intact. Rheumatologic--normal range of motion. Psychiatric--lethargic Principal Diagnosis Acute on chronic respiratory failure with hypoxia and hypercapnia. Significantly improved Influenza A with pneumonia Opioid dependence Constipation Acute metabolic encephalopathy. Resolved Discharge Exam General: Awake, conversant Heart: S1, S2/regular rate and rhythm, no murmur rubs or gallops Lungs: Clear to auscultation bilaterally. Normal effort Abdomen: Soft/nontender/nondistended. No hepatosplenomegaly Extremities: No clubbing/cyanosis. No edema Behavior: Appropriate, cooperative Discharge Data Allergies Allergy/AdvReac Type Severity Reaction Status Date / Time erythromycin base Allergy Severe DIFFICULTY Verified 06/29/23 18:21 BREATHING, THROAT SWELLS, RASH Consultations 06/29/23 20:43 ED Decision to Admit Stat 06/30/23 13:02 Consult Pulmonology Routine 07/05/23 18:22 Consult Palliative Care Routine Procedures Performed Operation Date: 07/01/23 11:00 Actual Procedures p Bronchoscopy Radiology - Jovanni Capps MD Ordered Studies 06/29/23 18:18 CT angio head wo/w Stat CT angio neck with con Stat 06/30/23 15:40 CT chest diagnostic wo con Urgent Hospital Course (1) Acute on chronic respiratory failure with hypoxia and hypercapnia: Acute component 2nd to flu A infection, b/l pneumonia left (severe) > right, left lung mucous plugging, COPD with exacerbation, pulmonary edema. These issues were treated and are now resolved. Chronic component - COPD, left-sided hemidiaphragm elevation, vocal cord paralysis leading to difficulty protecting airway/managing secretions Had bronchoscopy 07/01 notable for mucus plugging on L WORSE on 07/05/23 - CXR at that time with DEANNA again opacified. Previous collapse of DEANNA was due to mucous plugging s/p [facility], bronchoscopy by Dr Moore showing the following - "The right mainstem, right upper lobe, right middle lobe, and right lower lobe were all widely patent with thin secretions present. The mucosa appeared normal. The left mainstem bronchus was widely patent. The left upper lobe and lingula takeoff were patent but demonstrated dynamic collapse with respiration. The left lower lobe bronchi was significantly collapsed." Antibiotics stopped per ICU team, since no evidence of ongoing pneumonia 07/07 failed SBT but passed AM of 07/09 and was extubated. Prior to that on 07/09 had bronchoscopy with findings of thin secretions and no mucus plugging. With fever midmorning 07/10, resolved Pulmonary recommended nocturnal Bipap - refused Bipap pm of 07/09, 07/10, 07/11 - discontinued order Currently minimal O2 requirement --> he likes to have his O2 at 2LNC but then he retains CO2-discussed with patient and he is agreeable to keeping O2 at 0.5L Overall MUCH improved (2) Influenza due to identified 2008 H1N1 influenza virus with pneumonia: fluA infection with sepsis, POA and pneumonia tamiflu 75mg BID x 5 days , antibiotics- course completed (3) Opioid dependence: typically on oxycodone 15mg q4h prn and gabapentin 900 Mg 3 times daily as outpatient for chronic back/neck pain Because of the concern that the opioids and gabapentin contributed to his respiratory failure and encephalopathy, these medications were significantly reduced this hospitalization He then had significant return of his neuropathy and severe back pain and is asking for an increase in pain medication -Increased methadone to 5 Mg p.o. twice daily and titrate up as needed after discharge, continue to use oxycodone 5 Mg as needed for breakthrough pain which is a significant reduction from his home dose -Increased gabapentin to 300 Mg p.o. 3 times daily (home dose was 900mg po tid) -Pain now improved -continue to monitor for improvement in pain and for any adverse side effects -ECG shows normal QTc on 07/16 (checked for methadone use) (4) Constipation: secondary to opioid use continue Miralax daily give bisacodyl NJ x 1 today add docusate and continue senna Patient says that he has been having bowel movements lately (5) Pneumonia: DEANNA/LLL, extensive, severe, bacterial superinfection in the setting of fluA infection completed 7 days of cefepime then zosyn, also completed 6 days of atypical coverage with doxy 100mg BID s/p bronch 07/01/[address] Capps - large mucous plugging found in the left bronchial tree; plugs removed all bronch cultures negative to date -except Magalie albicans which is likely colonizer PJP, histo, blasto, and cocci studies that were sent to [facility] lab returned negative s/p bronch 07/[address] Moore without evidence of mucus plugging or ongoing secretions suggestive of pneumonia - antibiotics stopped at that point bronch 07/[address] Moore again with only thin secretions resolved continue monitoring off ABX (6) Acute metabolic encephalopathy: multifactorial - influenza infection, left-sided pneumonia, hypercapnia, hypoxia, meds for sedation for bronch while in ICU, reduced gabapentin to 100 mg tid but now increasing as below for worsening chronic pain opioids reduced from home dose mental status normal (7) Vocal cord paralysis: history of such per records-reason for vocal cord paralysis is likely his cervical myelopathy or prior cspine surgery big risk factor for aspiration events as he cannot protect his airway voice is not hoarse currently (8) Chronically elevated hemidiaphragm: left-side, etiology uncertain, present for several years has seen PURVI Pulerich for this as outpatient as well as thoracic surgery at [place] three years ago - not amenable to surgical intervention and too weak to tolerate at this time. Contributes to recurrent DEANNA collapse and mucus plugging. (9) COPD (chronic obstructive pulmonary disease): with exacerbation treated with solumedrol earlier in hospital course. prior to admission was on prednisone 5 mg qod for chronic pain? steroids discontinued at risk for secondary adrenal insufficiency - monitor, if hypotensive consider stress dose steroids (10) Positive blood culture: coag neg staph, 08/06 bottles, and alpha strep 07/06 bottles. likely contaminants (11) Myelopathy concurrent with and due to spinal stenosis of cervical region: severe 04/2020 - extensive c-spine surgery by Dr Álvarez outpatient pulmonary note from 2020 suggests that some of his vocal cord paralysis +/- hemidiaphragm elevation could be from prior surgery vs the c-spine disease itself (12) Depression: cont mirtazapine and buspar (13) Acid reflux: takes pepcid daily at home was having frequent reflux symptoms this entire stay before intubation continue acid suppression with PPI and dc pepcid CT chest showed esophageal wall thickening which is suggestive of esophagitis Follow-up as an outpatient with GI Plan DVT prophylaxis-Lovenox SQ Disposition-continued stay but medically stable for discharge to rehab-awaiting placement with son to transport Goals of care - Family meeting at bedside 07/[address] Moore, Dr Parikh from palliative care team, previous hospitalist, and Mr. Fleming's son and daughter in law. Mr. Kendall recinos has stated in past he did not want trach, half-way mechanical ventilation, SNF. Trial of bipap is reasonable if he can tolerate it (which he has tolerated poorly in the past), if he were to be reintubated would require trach for hope of improvement, which he had stated in the past he did not want. Patient then told me on 07/15 that he definitely would not ever want to be intubated again, but is okay with chest compressions, defibrillation, and ACLS medications and a conditional CODE STATUS. Total Time Total Time Spent Total Time Spent (In Minutes): 35 Discharge Plan Discharge Items Patient Disposition: Transfer Inpatient Rehab Fac Reason For Visit: ACUTE RESPIRATORY FAILURE WITH HYPOXIA AND HYPERCA Discharge Diagnosis: Acute on chronic respiratory failure with hypoxia and hypercapnia. Significantly improved Influenza A with pneumonia Opioid dependence Constipation Acute metabolic encephalopathy. Resolved Activity: As commented below Activity Comment: Per PT/OT recommendations Non-emergency contact: Primary Care Provider Call non-emergency contact if: you have any medication questions and your symptoms worsen Follow-up/Referrals: Leslie Camejo MD [Primary Care Provider] - Diet: Heart Healthy Addtl Attending Provider Instructions: Advised to follow-up with PCP in 1 week Pending Studies at Discharge: No Stand-Alone Forms: My [facility] Skilled Items Patient informed of condition?: Yes DNR: No Discharge Level of Care: Skilled Communicable Disease: No Discharge Prognosis: Stable Lines: None Urinary Catheter: No Medications and DC Order Prescriptions: New gabapentin 300 mg Capsule 300 mg PO TID Qty: 20 0RF methadone 5 mg Tablet 5 mg PO BID Qty: 20 0RF oxycodone 5 mg Tablet 5 mg PO Q4H PRN (Reason: pain) Qty: 20 0RF Continued docusate sodium 100 mg capsule 100 mg PO BID Qty: 60 5RF Senna Plus 8.6-50 mg capsule 2 tab-cap PO BID Qty: 120 5RF famotidine 20 mg tablet 20 mg PO DAILY Qty: 30 6RF celecoxib [Celebrex] 100 mg capsule 100 mg PO DAILY Qty: 30 5RF buspirone 15 mg tablet 15 mg PO BID Qty: 60 11RF bupropion HCl [Wellbutrin XL] 150 mg tablet extended release 24 hr 150 mg PO QAM Qty: 30 2RF mirtazapine 30 mg tablet 30 mg PO HS Qty: 30 5RF CeraVe Itch Relief 1 % cream 1 applic topical DAILY PRN (Reason: Skin Irritation) polyethylene glycol 3350 [Miralax] 17 gram/dose powder 17 g PO DAILY PRN (Reason: Constipation) atorvastatin 10 mg tablet 10 mg PO HS cetirizine 10 mg Tablet 10 mg PO DAILY PRN (Reason: allergy symptoms) Qty: 10 0RF melatonin 3 mg Tablet 3 mg PO HS Qty: 30 0RF acetaminophen [Tylenol Extra Strength] 500 mg Tablet 1,000 mg PO TID Qty: 180 0RF Caltrate 600-D Plus Minerals 600 mg calcium- 800 unit-50 mg Tablet 1 tab PO BID Qty: 60 0RF bisacodyl 10 mg suppository 10 mg NJ DAILY PRN (Reason: constipation) Qty: 12 0RF thiamine HCl (vitamin B1) [Vitamin B-1] 100 mg Tablet 100 mg PO QAM Qty: 30 0RF Discontinued prednisone 5 mg tablet 5 mg PO Q OTHER DAY Qty: 15 5RF ondansetron 4 mg tablet,disintegrating 4 mg PO Q4H PRN (Reason: nausea and vomiting) Qty: 10 0RF lorazepam [Ativan] 0.5 mg tablet 0.5 mg PO Q6H Qty: 120 2RF Rx Instructions: 0200, 0800, 1400, 2000 gabapentin 800 mg tablet 800 mg PO TID Qty: 90 0RF Rx Instructions: TOTAL DOSE 900 MG--TAKES WITH 100 MG CAP. oxycodone 15 mg tablet 15 mg PO Q4H PRN (Reason: pain) Qty: 120 0RF gabapentin 100 mg capsule 100 mg PO TID Qty: 90 2RF Rx Instructions: TOTAL DOSE 900 MG--TAKES WITH 800 MG TAB. Discharge Orders: Discharge Order (Routine); Ordered 07/21/23 Ordered By: Mirtha Wilkins Admission Data Admit Date/Time: 06/29/23 21:21 Attending Provider: Mirtha Wilkins Admit Provider: Maico Steel Primary Care Provider: Leslie Camejo Other Providers: Maico Steel; Jovanni Capps; Elsy Parikh; [facility] Other Interventions: Discharge Summary Assessment (RN) Last Done: 07/21/23 13:24 Coding Level of Care Code 84027 INP/OBS DISCH >30 MIN Diagnoses Acute on chronic respiratory failure with hypoxia and hypercapnia J96.21; J96.22 Influenza due to identified 2009 H1N1 influenza virus with pneumonia J10.00 Opioid dependence F11.20 Drug-induced constipation K59.03 Constipation type: drug induced constipation Pneumonia J18.9 Laterality: unspecified laterality Lung location: unspecified part of lung Pneumonia type: due to unspecified organism Acute metabolic encephalopathy G93.41 Vocal cord paralysis J38.00 Chronically elevated hemidiaphragm J98.6 Chronic obstructive pulmonary disease, unspecified COPD type J44.9 COPD type: unspecified COPD Positive blood culture R78.81 Myelopathy concurrent with and due to spinal stenosis of cervical region M48.02; G99.2 Depression F32.0 Active/Remission status: currently active Depression Type: major depressive disorder Major depression episode severity: mild Major depression recurrence: single episode Acid reflux K21.9
== END 2023-07-21 17:19 | DRG 871 ==
LOC: ED 18:05 → EDINP 21:21 → SUATTDRO 21:21 → 2S 22:00 → 1E 07-05 12:52 → 3N 07-12 13:20
DX: T40.2X5A Adverse effect of other opioids, initial encounter; F32.A Depression, unspecified; F03.918 Unspecified dementia, unspecified severity, with other behavioral disturbance; M48.02 Spinal stenosis, cervical region; K59.03 Drug induced constipation; G62.9 Polyneuropathy, unspecified; F10.11 Alcohol abuse, in remission; J98.6 Disorders of diaphragm; I10 Essential (primary) hypertension; Y92.89 Other specified places as the place of occurrence of the external cause; A41.89 Other specified sepsis; B37.81 Candidal esophagitis; M48.061 Spinal stenosis, lumbar region without neurogenic claudication; T17.900A Unspecified foreign body in respiratory tract, part unspecified causing asphyxiation, initial encounter; J44.0 Chronic obstructive pulmonary disease with (acute) lower respiratory infection; J38.00 Paralysis of vocal cords and larynx, unspecified; Y92.230 Patient room in hospital as the place of occurrence of the external cause; J96.21 Acute and chronic respiratory failure with hypoxia; J98.11 Atelectasis; Z99.81 Dependence on supplemental oxygen; F11.20 Opioid dependence, uncomplicated; K21.9 Gastro-esophageal reflux disease without esophagitis; G89.4 Chronic pain syndrome; J09.X1 Influenza due to identified novel influenza A virus with pneumonia; G93.41 Metabolic encephalopathy; G99.2 Myelopathy in diseases classified elsewhere; J96.22 Acute and chronic respiratory failure with hypercapnia; J44.1 Chronic obstructive pulmonary disease with (acute) exacerbation